=== PATIENT | female | born 1950 | race Caucasian/White ===

== ENCOUNTER 2017-07-29 09:16 | Emergency (ER) | payer OTHER ==
[~2017-07-29] VITALS: Ht 172.7 cm; Wt 63.5 kg
[~2017-07-29 09:16] MED LIST: ARPZ20T; BUDEPRION SR100 MG; DILT180C; HYDR1TAB86; LORA1TAB; PRAZ5CAP; TRAM-21; TRZ100T
[2017-07-29 09:41] LABS: BASOPHILS % (AUTO) 0 % (0-10); EOSINOPHILS % (AUTO) 0 % (0-10); HEMATOCRIT 53 % (35-52); HEMOGLOBIN 18.8 G/DL (11.5-16.0); LYMPHOCYTES # (AUTO) 0.7 X 10^3 (1.0-4.0); LYMPHOCYTES % (AUTO) 6 % (12-44); MEAN CORPUSCULAR HEMOGLOBIN 34 PG (25-34); MEAN CORPUSCULAR HGB CONC 36 G/DL (32-36); MEAN CORPUSCULAR VOLUME 96 FL (80-99); MEAN PLATELET VOLUME 10.4 FL (7.4-10.4); MONOCYTES # (AUTO) 0.8 X 10^3 (0.0-1.0); MONOCYTES % (AUTO) 7 % (0-12); NEUTROPHILS # (AUTO) 9.6 X 10^3 (1.8-7.8); NEUTROPHILS % (AUTO) 87 % (42-75); PLATELET COUNT 130 10^3/uL (130-400); RED CELL DISTRIBUTION WIDTH 17.3 % (10.0-14.5)
[2017-07-29 09:51] LABS: PROTHROMBIN TIME PATIENT 13.4 SEC (12.2-14.7)
[2017-07-29 10:00] LABS: ALANINE AMINOTRANSFERASE 11 U/L (0-55); ALKALINE PHOSPHATASE 83 U/L (40-136); BUN/CREATININE RATIO 7; CALCIUM 9.5 MG/DL (8.5-10.1); CARBON DIOXIDE 23 MMOL/L (21-32); CHLORIDE 102 MMOL/L (98-107); CREATININE SERUM 0.86 MG/DL (0.60-1.30); GFR ESTIMATED > 60; GLUCOSE 132 MG/DL (70-105); POTASSIUM 3.5 MMOL/L (3.6-5.0); SODIUM 140 MMOL/L (135-145); TOTAL PROTEIN 6.8 GM/DL (6.4-8.2)
[2017-07-29 10:06] LABS: BILIRUBIN,URINE NEGATIVE (NEGATIVE); CLARITY,URINE CLEAR; COLOR,URINE YELLOW; GLUCOSE, URINE (UA) NEGATIVE (NEGATIVE); KETONES,URINE NEGATIVE (NEGATIVE); LEUKOCYTE ESTERASE ,URINE NEGATIVE (NEGATIVE); NITRITE,URINE NEGATIVE (NEGATIVE); PH,URINE 7 (5-9); PROTEIN,URINE NEGATIVE (NEGATIVE); UROBILINOGEN,URINE NORMAL (NORMAL)
[2017-07-29 10:07] LABS: ANISOCYTOSIS MODERATE; BAND NEUTROPHILS 0 %; BASOPHILS % (MANUAL) 0 %; EOSINOPHILS % (MANUAL) 0 %; LYMPHOCYTES % (MANUAL) 9 %; MONOCYTES % (MANUAL) 5 %; NEUTROPHILS % (MANUAL) 86 %
[2017-07-29 10:15] LABS: BACTERIA,URINE NEGATIVE /HPF
[2017-07-29 10:16] LABS: CALCIUM OXALATE CRYSTALS,UR MODERATE /LPF
[2017-07-29 10:24] LABS: AMPHETAMINE SCREEN, URINE NEGATIVE (NEGATIVE); BARBITURATE SCREEN URINE NEGATIVE (NEGATIVE); BENZODIAZEPINES SCREEN URINE NEGATIVE (NEGATIVE); CANNABINOID SCREEN, URINE NEGATIVE (NEGATIVE); COCAINE SCREEN URINE NEGATIVE (NEGATIVE); METHADONE STAT NEGATIVE (NEGATIVE); METHAMPHETAMINE SCREEN URINE S NEGATIVE (NEGATIVE); OPIATE SCREEN URINE NEGATIVE (NEGATIVE); OXYCODONE STAT NEGATIVE (NEGATIVE); PROPOXYPHENE STAT NEGATIVE (NEGATIVE); TRICYCLIC ANTIDEPRESSANTS SCRE POSITIVE (NEGATIVE)
--- NOTE | 2017-07-29 12:20 | ED GI ---
General Chief Complaint: Rect Problems Stated Complaint: ANAL BLEED Nursing Triage Note: patient reports rectal bleeding 5 to 6 times starting last night Sepsis Screen: No Definite Risk Source of Information: Patient, EMS Exam Limitations: Other (dementia) History of Present Illness Date Seen by Provider: Jul 29, 2017 Time Seen by Provider: 09:18 Initial Comments This patient presents to the emergency room via EMS with complaints of multiple episodes of rectal bleeding. She reports bright red blood per rectum about 5 or 6 times over the last 12 hours or so. She lives alone and has dementia. She denies any notable pain. She denies any use of blood thinner medications. Patient is a bit disoriented consistent with her dementia. She is unable to correctly identify the place or year. She was ambulatory for EMS and met them on the porch. Allergies and Home Medications Allergies Coded Allergies: Morphine (Unverified Allergy, Intermediate, 05/18/09) Butorphanol (Unverified Allergy, Unknown, 05/18/09) Home Medications Aripiprazole 20 Mg Tab, (Reported) Bupropion Hcl 100 Mg Tablet.sa, (Reported) Diltiazem Hcl 180 Mg Cap.sr.24h, (Reported) Hydrocodone Bit/Acetaminophen 1 Each Tablet, (Reported) Lorazepam 1 Mg Tablet, (Reported) Prazosin Hcl 5 Mg Capsule, (Reported) Tramadol Hcl 50 Mg Tablet, (Reported) Trazodone Hcl 100 Mg Tab, (Reported) Review of Systems Constitutional: no symptoms reported EENTM: No Symptoms Reported Respiratory: No Symptoms Reported Cardiovascular: No Symptoms Reported Gastrointestinal: See HPI Genitourinary: No Symptoms Reported Musculoskeletal: no symptoms reported Skin: no symptoms reported Psychiatric/Neurological: See HPI Endocrine: No Symptoms Reported Hematologic/Lymphatic: See HPI Past Vbhaomt-Qfpnvg-Ixbrpb Hx Patient Social History Alcohol Use: Denies Use Recreational Drug Use: No Smoking Status: Current Everyday Smoker Recent Foreign Travel: No Contact w/Someone Who Travel: No Recent Infectious Disease Expo: No Surgeries History of Surgeries: Yes Surgeries: Appendectomy, Section, Hysterectomy Respiratory History of Respiratory Disorde: No Cardiovascular History of Cardiac Disorders: Yes Cardiac Disorders: Hypertension Neurological History of Neurological Disord: Yes Neurological Disorders: Dementia Reproductive System : No Genitourinary History of Genitourinary Disor: No Gastrointestinal History of Gastrointestinal Di: Yes Musculoskeletal History of Musculoskeletal Dis: No Endocrine History of Endocrine Disorders: No Cancer History of Cancer: No Psychosocial History of Psychiatric Problem: Yes Behavioral Health Disorders: Anxiety, Depression Physical Exam Vital Signs VS - Last 72 Hours, by Label 07/29/17 07/29/17 07/29/17 09:22 09:22 13:45 Temp 97.3 Pulse 89 84 Resp 12 18 B/P (MAP) 154/91 (112) 173/98 Pulse Ox 96 95 95 O2 Delivery Nasal Cannula Nasal Cannula O2 Flow Rate 3.00 3.00 Capillary Refill : Less Than 3 Seconds General Appearance: WD/WN, no apparent distress HEENT: normal ENT inspection, pharynx normal Neck: normal inspection Respiratory: lungs clear, normal breath sounds, no respiratory distress, no accessory muscle use Cardiovascular: regular rate, rhythm, no edema, no murmur Gastrointestinal: normal bowel sounds, non tender, soft Rectal: other (no active bleeding was noted with rectal exam. She did have a small mass that appeared like an external hemorrhoid posterior to the anus. This mass had a firm center. No bleeding was coming from the mass. Digital rectal exam revealed no abnormalities but there was exposure of dark blood upon removal of the finger.) Extremities: normal inspection, no pedal edema Neurologic/Psychiatric: sales recruiting coordinator II-XII nml as tested, no motor/sensory deficits, alert, other (Disoriented to place and year) Skin: normal color, warm/dry Progress/Results/Core Measures Results/Orders Lab Results Laboratory Tests Test 07/29/17 09:30 07/29/17 09:56 Range/Units White Blood Count 11.0 4.3-11.0 10^3/uL Red Blood Count 5.50 4.35-5.85 10^6/uL Hemoglobin 18.8 H 11.5-16.0 G/DL Hematocrit 53 H 35-52 % Mean Corpuscular Volume 96 80-99 FL Mean Corpuscular Hemoglobin 34 25-34 PG Mean Corpuscular Hemoglobin Concent 36 32-36 G/DL Red Cell Distribution Width 17.3 H 10.0-14.5 % Platelet Count 130 130-400 10^3/uL Mean Platelet Volume 10.4 7.4-10.4 FL Neutrophils (%) (Auto) 87 H 42-75 % Lymphocytes (%) (Auto) 6 L 12-44 % Monocytes (%) (Auto) 7 0-12 % Eosinophils (%) (Auto) 0 0-10 % Basophils (%) (Auto) 0 0-10 % Neutrophils # (Auto) 9.6 H 1.8-7.8 X 10^3 Lymphocytes # (Auto) 0.7 L 1.0-4.0 X 10^3 Monocytes # (Auto) 0.8 0.0-1.0 X 10^3 Eosinophils # (Auto) 0.0 0.0-0.3 10^3/uL Basophils # (Auto) 0.0 0.0-0.1 10^3/uL Neutrophils % (Manual) 86 % Lymphocytes % (Manual) 9 % Monocytes % (Manual) 5 % Eosinophils % (Manual) 0 % Basophils % (Manual) 0 % Band Neutrophils 0 % Anisocytosis MODERATE Prothrombin Time 13.4 12.2-14.7 SEC INR Comment 1.0 0.8-1.4 Activated Partial Thromboplast Time 28 24-35 SEC Sodium Level 140 135-145 MMOL/L Potassium Level 3.5 L 3.6-5.0 MMOL/L Chloride Level 102 98-107 MMOL/L Carbon Dioxide Level 23 21-32 MMOL/L Anion Gap 15 H 5-14 MMOL/L Blood Urea Nitrogen 6 L 7-18 MG/DL Creatinine 0.86 0.60-1.30 MG/DL Estimat Glomerular Filtration Rate > 60 BUN/Creatinine Ratio 7 Glucose Level 132 H 70-105 MG/DL Calcium Level 9.5 8.5-10.1 MG/DL Total Bilirubin 1.0 0.1-1.0 MG/DL Aspartate Amino Transf (AST/SGOT) 20 5-34 U/L Alanine Aminotransferase (ALT/SGPT) 11 0-55 U/L Alkaline Phosphatase 83 40-136 U/L Troponin I < 0.30 <0.30 NG/ML Total Protein 6.8 6.4-8.2 GM/DL Albumin 4.0 3.2-4.5 GM/DL Serum Alcohol < 10 <10 MG/DL Urine Color YELLOW Urine Clarity CLEAR Urine pH 7 5-9 Urine Specific Coker 1.005 L 1.016-1.022 Urine Protein NEGATIVE NEGATIVE Urine Glucose (UA) NEGATIVE NEGATIVE Urine Ketones NEGATIVE NEGATIVE Urine Nitrite NEGATIVE NEGATIVE Urine Bilirubin NEGATIVE NEGATIVE Urine Urobilinogen NORMAL NORMAL MG/DL Urine Leukocyte Esterase NEGATIVE NEGATIVE Urine RBC (Auto) NEGATIVE NEGATIVE Urine RBC NONE /HPF Urine WBC NONE /HPF Urine Squamous Epithelial Cells NONE /HPF Urine Crystals PRESENT H /LPF Urine Calcium Oxalate Crystals MODERATE H /LPF Urine Bacteria NEGATIVE /HPF Urine Casts NONE /LPF Urine Mucus NEGATIVE /LPF Urine Culture Indicated NO Urine Opiates Screen NEGATIVE NEGATIVE Urine Oxycodone Screen NEGATIVE NEGATIVE Urine Methadone Screen NEGATIVE NEGATIVE Urine Propoxyphene Screen NEGATIVE NEGATIVE Urine Barbiturates Screen NEGATIVE NEGATIVE Ur Tricyclic Antidepressants Screen POSITIVE H NEGATIVE Urine Phencyclidine Screen NEGATIVE NEGATIVE Urine Amphetamines Screen NEGATIVE NEGATIVE Urine Methamphetamines Screen NEGATIVE NEGATIVE Urine Benzodiazepines Screen NEGATIVE NEGATIVE Urine Cocaine Screen NEGATIVE NEGATIVE Urine Cannabinoids Screen NEGATIVE NEGATIVE My Orders Orders - MELISSA IGLESIAS MD Alcohol (07/29/17 09:29) Cbc With Automated Diff (07/29/17:29) Comprehensive Metabolic Panel (07/29/17:29) Drug Screen Stat (Urine) (07/29/17:29) Protime With Inr (07/29/17:29) Partial Thromboplastin Time (07/29/17:29) Ua Culture If Indicated (07/29/17:29) Saline Lock/Iv-Start (07/29/17:29) Ekg Tracing (07/29/17 09:29) O2 (07/29/17:29) Monitor-Rhythm Ecg Trace Only (07/29/17:29) Troponin I (07/29/17:29) Fecal Occult Bedside (07/29/17 09:29) Manual Differential (07/29/17 09:30) Vital Signs/I&O Vital Sign - Last 12Hours 07/29/17 07/29/17 07/29/17 09:22 09:22 13:45 Temp 97.3 Pulse 89 84 Resp 12 18 B/P (MAP) 154/91 (112) 173/98 Pulse Ox 96 95 95 O2 Delivery Nasal Cannula Nasal Cannula O2 Flow Rate 3.00 3.00 Blood Pressure Mean: 112 Progress Note : Progress Note Patient received a liter of IV fluids. Case was discussed with patient and daughter. Patient lives alone but her daughter will monitor her at home this evening and keep track of bleeding and overall status. I discussed the case with Dr. Piedra as well. He would like to try to manage the patient has an outpatient since she is not hypotensive, tachycardic, or having symptoms of anemia. His office will contact the family. EMS reported at one point patient had some sinus arrhythmia and thought heart rate jumped to 130s. EKG showed sinus rhythm with normal rate. No tachycardia or arrhythmia was witnessed in the ER. There were some borderline ST change in the inferior lateral leads which did not meet criteria for ischemia. She did not have chest pain. I discussed return precautions with patient and daughter. They will return if they have concerns for excessive bleeding or development of severe anemia signs or symptoms. Departure Impression Impression: Primary Impression: Rectal bleeding Additional Impressions: Mass of anus Hypovolemia Disposition: HOME, SELF-CARE Condition: Stable Departure-Patient Inst. Referrals: ARUN VEGA MD (PCP) Primary Care Physician MORENA MONTENEGRO (Family) Primary Care Physician GANGA PIEDRA MD Patient Instructions: Gastrointestinal Bleeding Add. Discharge Instructions: Encourage plenty of clear liquids. Avoid use of any anti-inflammatory medications such as aspirin, ibuprofen, naproxen, etc. Contact Dr. Piedra for follow-up arrangements. Return to the emergency room if symptoms worsen significantly. Worsening symptoms would include passing a significant amount of blood equivalent to 1 cup or more for symptoms of anemia such as lightheadedness, shortness of breath, fainting, etc. All discharge instructions reviewed with patient and/or family. Voiced understanding. Copy Copies To 1: GANGA PIEDRA MD Copies To 2: ARUN VEGA MD, JOSHUA T MD Jul 29, 2017 12:20
[2017-07-29 13:45] VITALS: BP 173/98
[2017-07-30] MEDS ORDERED: LISI10TA2 PO (10:06)
[2017-07-30] MEDS ORDERED: LOVA20TA2 PO (10:06)
[2017-07-30] MEDS ORDERED: QUET300T2 PO (10:06)
[2017-07-30] MEDS ORDERED: BUSP10TA95 PO (10:06)
[2017-07-30] MEDS ORDERED: QUET300T44 PO (13:20)
== END 2017-07-29 13:45 | disposition home or self-care (01) ==
LOC: EDUNIT# 09:16 → ER 09:18
DX: K62.5 Hemorrhage of anus and rectum (principal); K62.89 Other specified diseases of anus and rectum; E86.1 Hypovolemia; F17.200 Nicotine dependence, unspecified, uncomplicated; Z88.5 Allergy status to narcotic agent
CPT/HCPCS: 36415; 80053; 80306; 80320; 81000; 84484; 85007; 85027; 85610; 85730; 93005; 93041

== ENCOUNTER 2017-07-30 10:13 | Inpatient (IN) | payer MEDICARE, OTHER ==
[~2017-07-30] VITALS: Ht 177.8 cm; Wt 86.2 kg
[~2017-07-30 10:13] MED LIST changes: -QUET300T44 PO
[2017-07-30 11:40] VITALS: BP 144/82
[2017-07-30] MEDS ORDERED: METOCLOPRAMIDE INJ 10 MG/2 ML (REGLAN) IV SCH (12:25)
[2017-07-30] MEDS ORDERED: MAGNESIUM CITRATE 300 ML BTL PO NR ×2 (12:28→18:00)
[2017-07-30] MEDS ORDERED: CATHETER FLUSH 10 ML SYR IV PRN (12:30)
[2017-07-30] MEDS ORDERED: QUET300T44 PO (13:20)
[2017-07-30] MEDS: LACTATED RINGERS 1,000 ML IV SCH ×3 (13:23→23:30)
--- NOTE | 2017-07-30 14:13 | History & Physicial (CHS) ---
GABBY COON DO 07/30/17 1413: HPI Attending Physician Gabby Coon DO PCP Wyatt Nails MD Consult Date of Admission Jul 30, 2017 at 11:33 Home Medications Home Medications Reviewed patient Home Medication Reconciliation Form Allergies Coded Allergies: morphine (Unverified Allergy, Intermediate, 07/30/17) butorphanol (Unverified Allergy, Unknown, 07/30/17) PVP-Cfwult-Swmnlo Hx Patient Social History Alcohol Use: Past History Recreational Drug Use: Yes (alcohol) Type Used: Cigarettes Recent Foreign Travel: No Contact w/other who traveled: No Recent Hopitalizations: No Physical Abuse Screen: No Sexual Abuse: No Immunizations Up To Date Date of Influenza Vaccine: Mar 25, 2017 Physical Exam-([facility]) Physical Exam Vital Signs VS - Last 72 Hours, by Label 07/30/17 11:40 Temp 97.8 Pulse 97 Resp 20 B/P (MAP) 144/82 (102) Pulse Ox 92 O2 Delivery Room Air Capillary Refill : Clinical Quality Measures DVT/VTE Risk/Contraindication: Risk Factor Score Per Nursin RFS Level Per Nursing on Admit: 4+=Very High MERLYNARTI Danial CURRAN 07/31/17 1427: HPI History of Present Illness: This is a 66 yo female patient of Lakhwinder Carroll APRN at [facility] who was for rectal bleeding. Pt was initially seen in the ER yesterday when bleeding started rectally. She was stable with normal hemoglobin and was DC to the care of her daughter with f/u w/ Dr. Scherer. At home with her daughter, pt had 19 more bloody stools and c/o of dizziness and stomach pain. Dr. Scherer was contacted and he recommended admission to us with plans for colonoscopy and EGD. Pt has demential and is poor historian but daughter is present and states she has never had hx of GI bleed. No know use of NSAID, ASA, or other medications putting her at risk for bleeding. Denies vomiting. Pt has no complaints at this time. Source: family Exam Limitations: other (dementia) Date seen by provider: Jul 31, 2017 Time Seen by Provider: 10:45 Home Medications Allergies Coded Allergies: morphine (Unverified Allergy, Intermediate, 07/30/17) butorphanol (Unverified Allergy, Unknown, 07/30/17) RSW-Ifxjri-Zlznts Hx Past Medical History Dementia Depression/Anxiety possible COPD hypertension hyperlipidemia PSH: c/s x2 Appendectomy Hysterectomy ECT for depression x2 Review of Systems ([facility]) Constitutional: other (unable to obtain ROS; see HPI) Reviewed Test Results Reviewed Test Results Lab Laboratory Tests 07/31/17 05:19: White Blood Count 10.5, Red Blood Count 4.71, Hemoglobin 15.7, Hematocrit 46, Mean Corpuscular Volume 98, Mean Corpuscular Hemoglobin 33, Mean Corpuscular Hemoglobin Concent 34, Red Cell Distribution Width 17.1H, Platelet Count 129L, Mean Platelet Volume 10.6H, Neutrophils (%) (Auto) 72, Lymphocytes (%) (Auto) 18 , Monocytes (%) (Auto) 10, Eosinophils (%) (Auto) 0, Basophils (%) (Auto) 0, Neutrophils # (Auto) 7.5, Lymphocytes # (Auto) 1.9, Monocytes # (Auto) 1.0, Eosinophils # (Auto) 0.0, Basophils # (Auto) 0.0, Sodium Level 143, Potassium Level 3.4L, Chloride Level 106, Carbon Dioxide Level 27, Anion Gap 10, Blood Urea Nitrogen 3L, Creatinine 0.60, Estimat Glomerular Filtration Rate > 60, BUN/ Creatinine Ratio 5, Glucose Level 111H, Calcium Level 8.3L, Total Bilirubin 0.9 , Aspartate Amino Transf (AST/SGOT) 12, Alanine Aminotransferase (ALT/SGPT) 6, Alkaline Phosphatase 56, Total Protein 5.0L, Albumin 3.0L Physical Exam-([facility]) Physical Exam Vital Signs VS - Last 72 Hours, by Label 07/30/17 07/30/17 07/30/17 07/31/17 11:40 16:00 20:26 00:00 Temp 97.8 98.8 98.9 99.3 Pulse 97 89 104 90 Resp 20 14 20 18 B/P (MAP) 144/82 (102) 146/94 (111) 153/80 (104) 152/84 (106) Pulse Ox 92 94 95 94 O2 Delivery Room Air Room Air Room Air Nasal Cannula O2 Flow Rate 2.00 07/31/17 07/31/17 07/31/17 04:03 08:00 11:35 Temp 99.5 97.2 98.5 Pulse 97 88 85 Resp 16 16 16 B/P (MAP) 124/78 (93) 138/81 (100) 168/90 (116) Pulse Ox 96 95 91 O2 Delivery Nasal Cannula Nasal Cannula Room Air O2 Flow Rate 2.00 1.00 General Appearance: no apparent distress HEENT: PERRL/EOMI Respiratory: lungs clear, normal breath sounds Cardiovascular: regular rate, rhythm Gastrointestinal: non tender, soft Extremities: normal range of motion, no pedal edema Skin: normal color, warm/dry Assessment/Plan Assessment/Plan Plan Restarted home meds. SCDs for DVT ppx; pharm tx contraindicated secondary to rectal bleeding Pt is DNR status, DPOA is daughter (1) Rectal bleeding Status: Acute Assessment & Plan: 07/31 - Pt stable w/ stable Hb - Dr. Scherer consulted with plans for colonoscopy and EGD tomorrow (2) Hypokalemia Status: Acute Assessment & Plan: 07/31 - K 3.4 - replace (3) Dementia Status: Chronic Assessment & Plan: 07/31 - pt at baseline; lives alone. Will consult social media content specialist for evaluation for placement. Qualifiers: Qualified Codes: F03.90 - Unspecified dementia without behavioral disturbance GABBY COON DO Jul 30, 2017 14:13 ARTI ZULETA DO Jul 31, 2017 14:27
[2017-07-30] MEDS: CATHETER FLUSH 10 ML SYR IV SCH ×2 (14:45→19:42)
[2017-07-30 16:00] VITALS: BP 146/94
--- NOTE | 2017-07-30 16:05 | Consultation ---
History of Present Illness History of Present Illness Patient Consulted On(amber/time) 07/30/17 16:02 Date Seen by Provider: Jul 30, 2017 Time Seen by Provider: 15:45 Reason for Visit: Rectal bleeding, melena and nausea History of Present Illness 2-3 days history of rectal bleeding, melena and nausea, resulting in an ER visit. Hemodynamically stable with a reasonable hemoglobin. Due to nausea and inability to tolerate bowel preparation, she has been admitted for intravenous fluids along with symptomatic management. Upper endoscopy and colonoscopy are scheduled for , Allergies and Home Medications Allergies Coded Allergies: morphine (Unverified Allergy, Intermediate, 07/30/17) butorphanol (Unverified Allergy, Unknown, 07/30/17) Home Medications Buspirone HCl 10 Mg Tablet, 10 MG PO BID, (Reported) Lisinopril 10 Mg Tablet, 10 MG PO DAILY, (Reported) Lovastatin 20 Mg Tablet, 20 MG PO HS, (Reported) Quetiapine Fumarate 300 Mg Tablet, 300 MG PO HS, (Reported) Past Wucgkmn-Mhmezq-Nfepcz Hx Patient Social History Alcohol Use: Past History Recreational Drug Use: Yes (alcohol) Type Used: Cigarettes Recent Foreign Travel: No Contact w/Someone Who Travel: No Recent Hopitalizations: No Immunizations Up To Date Date of Influenza Vaccine: Mar 25, 2017 Seasonal Allergies Seasonal Allergies: No Surgeries History of Surgeries: Yes Surgeries: Appendectomy, Section, Hysterectomy Respiratory History of Respiratory Disorde: No Cardiovascular History of Cardiac Disorders: Yes Cardiac Disorders: High Cholesterol, Hypertension Neurological History of Neurological Disord: Yes (ELECTRIC SHOCK TREATMENT ( LAST ONE 14 YRS. AGO)) Neurological Disorders: Dementia Reproductive System Hx Reproductive Disorders: No Sexually Transmitted Disease: No HIV/AIDS: No Genitourinary History of Genitourinary Disor: No Gastrointestinal History of Gastrointestinal Di: Yes ( BOWEL ISSUES, LOSS APPETITE) Gastrointestinal Disorders: Gastroesophageal Reflux Musculoskeletal History of Musculoskeletal Dis: No Endocrine History of Endocrine Disorders: No HEENT Loss of Vision: Bilateral Hearing Impairment: Denies Cancer History of Cancer: No Psychosocial History of Psychiatric Problem: Yes Behavioral Health Disorders: Anxiety, Depression Integumentary History of Skin or Integumenta: No Blood Transfusions History of Blood Disorders: No Adverse Reaction to a Blood Tr: No (N/A) Review of Systems-General Constitutional: weakness EENTM: no symptoms reported Respiratory: no symptoms reported Gastrointestinal: see HPI Genitourinary: no symptoms reported Musculoskeletal: no symptoms reported Skin: no symptoms reported Psychiatric/Neurological: Emotional Problems Physical Exam-General Problems Physical Exam Vital Signs Vital Signs - First Documented 07/30/17 11:40 Temp 97.8 Pulse 97 Resp 20 B/P (MAP) 144/82 (102) Pulse Ox 92 O2 Delivery Room Air Capillary Refill : General Appearance: no apparent distress Neck: normal inspection Respiratory: lungs clear Cardiovascular: regular rate, rhythm Gastrointestinal: soft Rectal: deferred Extremities: normal inspection Neurologic/Psychiatric: alert Skin: warm/dry Assessment/Plan Assessment/Plan Admission Diagnosis/Plan lady with a history of melena, fresh rectal bleeding. Bowel preparation in progress. 4 upper endoscopy and colonoscopy in 48 hours. Clinical Quality Measures DVT/VTE Risk/Contraindication: Risk Factor Score Per Nursin RFS Level Per Nursing on Admit: 4+=Very High GANGA PIEDRA MD Jul 30, 2017 4:05 pm
[2017-07-30] MEDS ORDERED: METOCLOPRAMIDE INJ 10 MG/2 ML (REGLAN) IV PRN (16:30)
[2017-07-30] MEDS: busPIRone 10 MG (BUSPAR) TAB PO SCH (20:24)
[2017-07-30] MEDS: QUEtiapine 100 MG (SEROquel) TAB IMMEDIATE RELEASE PO SCH (20:25)
[2017-07-30] MEDS: SIMvastatin 10 MG (ZOCOR) TAB PO SCH (20:25)
[2017-07-30 20:26] VITALS: BP 153/80
[2017-07-30] MEDS ORDERED: NON-FORMULARY MEDICATION 1 EA EA (Lovastatin 20 MG) PO SCH (21:00)
[2017-07-30] MEDS ORDERED: NON-FORMULARY MEDICATION 1 EA EA (Quetiapine Fumarate 300 MG) PO SCH (21:00)
[2017-07-31] VITALS (7 sets, daily range): BP systolic 124–181; BP diastolic 61–96
[2017-07-31] MEDS: CATHETER FLUSH 10 ML SYR IV SCH ×3 (04:24→20:30)
[2017-07-31 05:43] LABS: BASOPHILS % (AUTO) 0 % (0-10); EOSINOPHILS % (AUTO) 0 % (0-10); HEMATOCRIT 46 % (35-52); HEMOGLOBIN 15.7 G/DL (11.5-16.0); LYMPHOCYTES # (AUTO) 1.9 X 10^3 (1.0-4.0); LYMPHOCYTES % (AUTO) 18 % (12-44); MEAN CORPUSCULAR HEMOGLOBIN 33 PG (25-34); MEAN CORPUSCULAR HGB CONC 34 G/DL (32-36); MEAN CORPUSCULAR VOLUME 98 FL (80-99); MEAN PLATELET VOLUME 10.6 FL (7.4-10.4); MONOCYTES % (AUTO) 10 % (0-12); NEUTROPHILS # (AUTO) 7.5 X 10^3 (1.8-7.8); NEUTROPHILS % (AUTO) 72 % (42-75); PLATELET COUNT 129 10^3/uL (130-400); RED BLOOD COUNT 4.71 10^6/uL (4.35-5.85); RED CELL DISTRIBUTION WIDTH 17.1 % (10.0-14.5); WHITE BLOOD COUNT 10.5 10^3/uL (4.3-11.0)
[2017-07-31] MEDS ORDERED: MAGNESIUM CITRATE 300 ML BTL PO SCH (06:00)
[2017-07-31 06:05] LABS: ALANINE AMINOTRANSFERASE 6 U/L (0-55); ALKALINE PHOSPHATASE 56 U/L (40-136); BILIRUBIN,TOTAL 0.9 MG/DL (0.1-1.0); BUN/CREATININE RATIO 5; CALCIUM 8.3 MG/DL (8.5-10.1); CARBON DIOXIDE 27 MMOL/L (21-32); CHLORIDE 106 MMOL/L (98-107); GFR ESTIMATED > 60; GLUCOSE 111 MG/DL (70-105); POTASSIUM 3.4 MMOL/L (3.6-5.0); SODIUM 143 MMOL/L (135-145)
[2017-07-31] MEDS ORDERED: MAGNESIUM CITRATE 300 ML BTL PO NR ×2 (07:00→14:00)
[2017-07-31] MEDS: LACTATED RINGERS 1,000 ML IV SCH ×2 (08:30→19:00)
[2017-07-31] MEDS: busPIRone 10 MG (BUSPAR) TAB PO SCH ×2 (08:30→20:30)
[2017-07-31] MEDS ORDERED: lisINopril 10 MG (PRINIVIL) TABLET PO SCH (09:00)
[2017-07-31] MEDS: POTASSIUM CL 10MEQ/50ML IVPB 50 ML IV SCH ×2 (11:52→14:19)
--- NOTE | 2017-07-31 12:56 | Progress Note (SOAP) ---
Subjective Date Seen by Provider: Jul 31, 2017 Time Seen by Provider: 11:40 Subjective/Events-last exam Bowel prep in progress. No nausea. Hemoglobin stable. Hypokalemia, will be replaced. Review of Systems General: No Chills, No Night Sweats, No Fatigue, No Malaise HEENT: No Head Aches, No Eye Pain, No Ear Pain, No Dysphasia, No Sinus Congestion, No Post Nasal Drip, No Sore Throat Pulmonary: No Dyspnea, No Cough, No Pleuritic Chest Pain Cardiovascular: No: Chest Pain, Palpitations, Orthopnea, Paroxysmal Noc. Dyspnea, Edema, Lt Headedness Gastrointestinal: No: Nausea, Vomiting, Abdominal Pain, Diarrhea, Constipation , Melena, Hematochezia Genitourinary: No Dysuria, No Frequency, No Incontinence, No Hematuria, No Retention Musculoskeletal: No: other, neck pain, shoulder pain, arm pain, back pain, hand pain, leg pain, foot pain Neurological: No: Weakness, Numbness, Incoordination, Change in speech, Confusion, Seizures, Other Objective Exam Vital Signs Date Time Temp Pulse Resp B/P (MAP) Pulse Ox O2 Delivery O2 Flow Rate FiO2 07/31/17 11:35 98.5 85 16 168/90 (116) 91 Room Air 07/31/17 08:00 97.2 88 16 138/81 (100) 95 Nasal Cannula 1.00 07/31/17 04:03 99.5 97 16 124/78 (93) 96 Nasal Cannula 2.00 07/31/17 00:00 99.3 90 18 152/84 (106) 94 Nasal Cannula 2.00 07/30/17 20:26 98.9 104 20 153/80 (104) 95 Room Air 07/30/17 16:00 98.8 89 14 146/94 (111) 94 Room Air I & O 07/31/17 07:00 Intake Total 1010 ml Output Total 200 ml Balance 810 ml Capillary Refill : General Appearance: No Apparent Distress HEENT: Normal ENT Inspection Neck: Normal Inspection Respiratory: Lungs Clear Cardiovascular: Regular Rate, Rhythm Gastrointestinal: non tender, soft Neurologic/Psychiatric: Alert Skin: Warm/Dry Results Lab Laboratory Tests 07/31/17 05:19: White Blood Count 10.5, Red Blood Count 4.71, Hemoglobin 15.7, Hematocrit 46, Mean Corpuscular Volume 98, Mean Corpuscular Hemoglobin 33, Mean Corpuscular Hemoglobin Concent 34, Red Cell Distribution Width 17.1H, Platelet Count 129L, Mean Platelet Volume 10.6H, Neutrophils (%) (Auto) 72, Lymphocytes (%) (Auto) 18 , Monocytes (%) (Auto) 10, Eosinophils (%) (Auto) 0, Basophils (%) (Auto) 0, Neutrophils # (Auto) 7.5, Lymphocytes # (Auto) 1.9, Monocytes # (Auto) 1.0, Eosinophils # (Auto) 0.0, Basophils # (Auto) 0.0, Sodium Level 143, Potassium Level 3.4L, Chloride Level 106, Carbon Dioxide Level 27, Anion Gap 10, Blood Urea Nitrogen 3L, Creatinine 0.60, Estimat Glomerular Filtration Rate > 60, BUN/ Creatinine Ratio 5, Glucose Level 111H, Calcium Level 8.3L, Total Bilirubin 0.9 , Aspartate Amino Transf (AST/SGOT) 12, Alanine Aminotransferase (ALT/SGPT) 6, Alkaline Phosphatase 56, Total Protein 5.0L, Albumin 3.0L Assessment/Plan Assessment/Plan Assess & Plan/Chief Complaint lady with a history of melena, fresh rectal bleeding. Bowel preparation in progress. 4 upper endoscopy and colonoscopy in 48 hours. lady with a history of melena and rectal bleeding. No further bleeding noticed. Hemoglobin and vital signs stable. For upper and lower endoscopy tomorrow Final Diagnosis rectal bleeding and melena Clinical Quality Measures DVT/VTE Risk/Contraindication: Risk Factor Score Per Nursin RFS Level Per Nursing on Admit: 4+=Very High Contraindications-Pharm: Other *list below* Other: SCDs ordered; Pharm VTE PPx contraindicated secondary to rectal bleeding GANGA PIEDRA MD Jul 31, 2017 12:55 pm
[2017-07-31] MEDS ORDERED: lisINopril 40 MG (PRINIVIL) TABLET PO ONE (16:00)
[2017-07-31] MEDS ORDERED: lisINopril 10 MG (PRINIVIL) TABLET PO NR (16:00)
--- NOTE | 2017-07-31 16:00 | Progress Note (SOAP) ---
Subjective Subjective/Events-last exam No new issues. Review of Systems Date Seen by Provider: Jul 31, 2017 Time Seen by Provider: 10:45 Objective Exam Last Set of Vital Signs Vital Signs Date Time Temp Pulse Resp B/P (MAP) Pulse Ox O2 Delivery O2 Flow Rate FiO2 07/31/17 11:35 98.5 85 16 168/90 (116) 91 Room Air 07/31/17 08:00 1.00 Capillary Refill : I&O Intake and Output 07/31/17 00:00 Intake Total 910 ml Balance 910 ml Intake Oral 910 ml # Voids 7 # Bowel Movements 7 Daily Weight Change Unsure General: Alert, Oriented X3, Cooperative Abdomen: Soft Results/Procedures Lab Laboratory Tests 07/31/17 05:19: White Blood Count 10.5, Red Blood Count 4.71, Hemoglobin 15.7, Hematocrit 46, Mean Corpuscular Volume 98, Mean Corpuscular Hemoglobin 33, Mean Corpuscular Hemoglobin Concent 34, Red Cell Distribution Width 17.1H, Platelet Count 129L, Mean Platelet Volume 10.6H, Neutrophils (%) (Auto) 72, Lymphocytes (%) (Auto) 18 , Monocytes (%) (Auto) 10, Eosinophils (%) (Auto) 0, Basophils (%) (Auto) 0, Neutrophils # (Auto) 7.5, Lymphocytes # (Auto) 1.9, Monocytes # (Auto) 1.0, Eosinophils # (Auto) 0.0, Basophils # (Auto) 0.0, Sodium Level 143, Potassium Level 3.4L, Chloride Level 106, Carbon Dioxide Level 27, Anion Gap 10, Blood Urea Nitrogen 3L, Creatinine 0.60, Estimat Glomerular Filtration Rate > 60, BUN/ Creatinine Ratio 5, Glucose Level 111H, Calcium Level 8.3L, Total Bilirubin 0.9 , Aspartate Amino Transf (AST/SGOT) 12, Alanine Aminotransferase (ALT/SGPT) 6, Alkaline Phosphatase 56, Total Protein 5.0L, Albumin 3.0L Assessment/Plan Assessment/Plan Plan Restarted home meds. SCDs for DVT ppx; pharm tx contraindicated secondary to rectal bleeding Pt is DNR status, DPOA is daughter (1) Rectal bleeding Status: Acute Assessment & Plan: 07/31 - Pt stable w/ stable Hb - Dr. Scherer consulted with plans for colonoscopy and EGD tomorrow (2) Hypokalemia Status: Acute Assessment & Plan: 07/31 - K 3.4 - replace (3) Dementia Status: Chronic Assessment & Plan: 07/31 - pt at baseline; lives alone. Will consult social sciences instructor for evaluation for placement. Qualifiers: Qualified Codes: F03.90 - Unspecified dementia without behavioral disturbance Clinical Quality Measures DVT/VTE Risk/Contraindication: Risk Factor Score Per Nursin RFS Level Per Nursing on Admit: 4+=Very High Contraindications-Pharm: Other *list below* Other: SCDs ordered; Pharm VTE PPx contraindicated secondary to rectal bleeding ARTI ZULETA DO Jul 31, 2017 16:00
[2017-07-31] MEDS: QUEtiapine 100 MG (SEROquel) TAB IMMEDIATE RELEASE PO SCH (20:30)
[2017-07-31] MEDS: SIMvastatin 10 MG (ZOCOR) TAB PO SCH (20:30)
[2017-08-01] MEDS: LACTATED RINGERS 1,000 ML IV SCH ×3 (04:42→18:11)
[2017-08-01 04:44] VITALS: BP 120/65
[2017-08-01] MEDS: CATHETER FLUSH 10 ML SYR IV SCH ×3 (05:57→21:07)
[2017-08-01 06:11] LABS: HEMOGLOBIN 14.9 G/DL (11.5-16.0); MEAN PLATELET VOLUME 10.5 FL (7.4-10.4); RED BLOOD COUNT 4.47 10^6/uL (4.35-5.85); WHITE BLOOD COUNT 7.5 10^3/uL (4.3-11.0)
[2017-08-01 06:48] LABS: BUN/CREATININE RATIO 7; CALCIUM 8.2 MG/DL (8.5-10.1); CARBON DIOXIDE 27 MMOL/L (21-32); CHLORIDE 106 MMOL/L (98-107); CREATININE SERUM 0.57 MG/DL (0.60-1.30); GFR ESTIMATED > 60; GLUCOSE 99 MG/DL (70-105); POTASSIUM 3.5 MMOL/L (3.6-5.0); SODIUM 142 MMOL/L (135-145)
[2017-08-01 08:00] VITALS: BP 130/67
[2017-08-01] MEDS: POTASSIUM CL 10MEQ/50ML IVPB 50 ML IV SCH ×3 (08:38→10:43)
[2017-08-01] MEDS: busPIRone 10 MG (BUSPAR) TAB PO SCH ×2 (08:38→21:07)
[2017-08-01] MEDS: lisINopril 20 MG (PRINIVIL) TABLET PO SCH (08:38)
[2017-08-01] MEDS ORDERED: lisINopril 40 MG (PRINIVIL) TABLET PO SCH (09:00)
[2017-08-01] MEDS ORDERED: lisINopril 10 MG (PRINIVIL) TABLET PO SCH (09:00)
[2017-08-01 12:00] VITALS: BP 135/62
[2017-08-01] MEDS ORDERED: fentaNYL INJECTION 100 MCG/2 ML AMP ONE ×2 (12:00→12:01)
[2017-08-01] MEDS ORDERED: HURRICAINE EXT TUBE (BENZOCAINE) ONE (12:01)
[2017-08-01] MEDS ORDERED: MIDAZOLAM 2 MG/2 ML (VERSED) VIAL ONE ×3 (12:01)
[2017-08-01] MEDS ORDERED: NS IV 500 ML 500 ML ONE (12:01)
[2017-08-01] MEDS ORDERED: NS IV 500 ML 500 ML IV PRN (12:05)
[2017-08-01] MEDS ORDERED: HURRICAINE EXT TUBE (BENZOCAINE) XX PRN (12:15)
--- NOTE | 2017-08-01 12:50 | Conscious Sedation/ASA ---
Conscious Sedation Pre-Proced Time Reviewed: 12:50 ASA Class: 3 Airway Mallampati Classification: (navajo appropriate class) I. II. III, IV Lungs Heart ASA score ASA 1: a normal healthy patient ASA 2: a patient with a mild systemic disease (mid diabetes, controlled hypertension, obesity ASA 3: a patient with a severe systemic disease that limits activity (angina , COPD, prior Myocardial infarction) ASA 4: a patient with an incapacitating disease that is a constant threat to life (CHF, renal failure) ASA 5: a moribund patient not expected to survive 24 hrs. (ruptured aneurysm) ASA 6: a declared brain patient whose organs are being harvested. For emergent operations, add the letter E after the classification Grade 1 Sedation Plan: Discussed options with patient/fam Note The patient is an appropriate candidate to undergo the planned procedure, sedation, and anesthesia. The patient immediately re-assessed prior to indication. GANGA PIEDRA MD Aug 01, 2017 12:50 pm
[2017-08-01] MEDS: fentaNYL INJECTION 100 MCG/2 ML AMP IVP PRN ×3 (12:53→13:10)
[2017-08-01] MEDS: MIDAZOLAM 2 MG/2 ML (VERSED) VIAL IVP PRN ×3 (12:55→13:07)
--- NOTE | 2017-08-01 13:31 | Endo Procedure Record ---
Endo Procedure Report Date of Procedure Last Colonoscopy: No Aug 01, 2017 Surgeon (s) GANGA PIEDRA MD Post Procedure/Op Diagnosis EGD: Antral erosions Colonoscopy: 10 mm sessile polyp at the proximal rectum Changes of ischemic colitis extending from 25-50 cm Procedure Performed Upper endoscopy Colonoscopy to cecum Snare polypectomy Biopsy of ischemic colitis area Description of Procedure Anesthesia Type: Conscious Sedation Specimen(s) collected/removed rectal polyp. Mucosal biopsies from descending colon for ischemic colitis Description of the Procedure Indication for procedures: This lady has been admitted with a combination of melena and fresh rectal bleeding, along with abdominal pain. She was offered upper endoscopy with concomitant colonoscopy for diagnostic reasons. Informed consent was obtained after reviewing the procedures in detail Description of the procedures: EGD: She was placed in left lateral rectus position and her vital signs were monitored. Conscious sedation was achieved using Versed and fentanyl. The flexible gastroscope was then introduced down the esophagus, past the stomach, into the proximal duodenum. Findings: Esophagus: Normal. Stomach: Multiple, shallow erosions at the antrum Duodenum: Normal. She tolerated the procedure well and was turned around in preparation for colonoscopy. Impression: Melena. Distal gastric erosions. Colonoscopy/polypectomy/biopsy: Digital rectal examination was unremarkable. The colonoscope was then introduced into the rectum and advanced all the way up to the cecum The quality of bowel preparation was excellent. The scope was then withdrawn slowly and the mucosa examined in a systematic fashion. Findings: 1. 10 mm sessile polyp at the proximal rectum, there was snared and retrieved 2. Inflamed mucosa with serpiginous ulcers, having the appearance of ischemic colitis, extending from 25-50 cm, along the descending colon. Photodocumentation and biopsies were obtained She tolerated the procedures well and was taken back to the nursing area in a stable condition. Impression: Rectal bleeding. 10 mm rectal polyp excised. Changes of ischemic colitis. Will treat conservatively Copies To: MALGORZATA COON DO Copies To: ARUN VEGA MD, XAVIER M MD Aug 01, 2017 1:30 pm
[2017-08-01] MEDS: metroNIDAZOLE 500MG/100ML IVPB 100 ML IV SCH ×2 (14:30→21:07)
[2017-08-01 16:05] VITALS: BP 156/82
--- NOTE | 2017-08-01 16:27 | Progress Note (SOAP) ---
Subjective Subjective/Events-last exam No new complaints; to have scopes today. Review of Systems Date Seen by Provider: Aug 01, 2017 Time Seen by Provider: 10:30 Objective Exam Last Set of Vital Signs Vital Signs Date Time Temp Pulse Resp B/P (MAP) Pulse Ox O2 Delivery O2 Flow Rate FiO2 08/01/17 16:05 97.2 80 18 156/82 (106) 96 Nasal Cannula 2.00 Capillary Refill : I&O Intake and Output 08/01/17 00:00 Intake Total 3370 ml Output Total 600 ml Balance 2770 ml Intake Oral 1370 ml IV Total 2000 ml Output Urine Total 600 ml # Voids 11 # Bowel Movements 14 General: Alert, Oriented X3, Cooperative Lungs: Clear to Auscultation Abdomen: Normal Bowel Sounds Results/Procedures Lab Laboratory Tests 08/01/17 05:39: White Blood Count 7.5, Red Blood Count 4.47, Hemoglobin 14.9, Hematocrit 44, Mean Corpuscular Volume 99, Mean Corpuscular Hemoglobin 33, Mean Corpuscular Hemoglobin Concent 34, Red Cell Distribution Width 17.0H, Platelet Count 116L, Mean Platelet Volume 10.5H, Sodium Level 142, Potassium Level 3.5L, Chloride Level 106, Carbon Dioxide Level 27, Anion Gap 9, Blood Urea Nitrogen 4L, Creatinine 0.57L, Estimat Glomerular Filtration Rate > 60, BUN/Creatinine Ratio 7, Glucose Level 99, Calcium Level 8.2L Assessment/Plan Assessment/Plan Plan Restarted home meds. SCDs for DVT ppx; pharm tx contraindicated secondary to rectal bleeding Pt is DNR status, DPOA is daughter (1) Rectal bleeding Status: Acute Assessment & Plan: 07/31 - Pt stable w/ stable Hb - Dr. Scherer consulted with plans for colonoscopy and EGD tomorrow 08/01 - scopes planned for today; Hb stable at 14.9 (2) Hypokalemia Status: Acute Assessment & Plan: 07/31 - K 3.4 - replace 08/01 - K 3.5 - replace (3) Dementia Status: Chronic Assessment & Plan: 07/31 - pt at baseline; lives alone. Will consult social research assistant for evaluation for placement. Qualifiers: Qualified Codes: F03.90 - Unspecified dementia without behavioral disturbance Clinical Quality Measures DVT/VTE Risk/Contraindication: Risk Factor Score Per Nursin RFS Level Per Nursing on Admit: 4+=Very High Contraindications-Pharm: Other *list below* Other: SCDs ordered; Pharm VTE PPx contraindicated secondary to rectal bleeding ARTI ZULETA DO Aug 01, 2017 16:27
[2017-08-01 20:00] VITALS: BP 169/77
[2017-08-01] MEDS: QUEtiapine 100 MG (SEROquel) TAB IMMEDIATE RELEASE PO SCH (21:07)
[2017-08-01] MEDS: SIMvastatin 10 MG (ZOCOR) TAB PO SCH (21:07)
[2017-08-01 23:13] VITALS: BP 128/68
[2017-08-02 03:07] VITALS: BP 109/62
[2017-08-02] MEDS: metroNIDAZOLE 500MG/100ML IVPB 100 ML IV SCH (05:10)
[2017-08-02] MEDS: LACTATED RINGERS 1,000 ML IV SCH (05:10)
[2017-08-02] MEDS: CATHETER FLUSH 10 ML SYR IV SCH ×2 (05:10→13:03)
[2017-08-02 06:10] LABS: BASOPHILS % (AUTO) 0 % (0-10); EOSINOPHILS # (AUTO) 0.2 10^3/uL (0.0-0.3); EOSINOPHILS % (AUTO) 3 % (0-10); HEMATOCRIT 42 % (35-52); HEMOGLOBIN 13.9 G/DL (11.5-16.0); LYMPHOCYTES # (AUTO) 1.6 X 10^3 (1.0-4.0); LYMPHOCYTES % (AUTO) 25 % (12-44); MEAN CORPUSCULAR HEMOGLOBIN 33 PG (25-34); MEAN CORPUSCULAR HGB CONC 33 G/DL (32-36); MEAN CORPUSCULAR VOLUME 99 FL (80-99); MEAN PLATELET VOLUME 10.6 FL (7.4-10.4); MONOCYTES # (AUTO) 0.7 X 10^3 (0.0-1.0); MONOCYTES % (AUTO) 10 % (0-12); NEUTROPHILS % (AUTO) 61 % (42-75); PLATELET COUNT 122 10^3/uL (130-400); RED BLOOD COUNT 4.24 10^6/uL (4.35-5.85); RED CELL DISTRIBUTION WIDTH 16.6 % (10.0-14.5); WHITE BLOOD COUNT 6.5 10^3/uL (4.3-11.0)
[2017-08-02 06:26] LABS: BUN/CREATININE RATIO 6; CALCIUM 8.3 MG/DL (8.5-10.1); CARBON DIOXIDE 25 MMOL/L (21-32); CHLORIDE 106 MMOL/L (98-107); CREATININE SERUM 0.62 MG/DL (0.60-1.30); GFR ESTIMATED > 60; GLUCOSE 95 MG/DL (70-105); POTASSIUM 3.5 MMOL/L (3.6-5.0); SODIUM 140 MMOL/L (135-145)
[2017-08-02] MEDS ORDERED: KCL 20 MEQ TAB (K-DUR) PO NR (07:45)
[2017-08-02 08:00] VITALS: BP 129/70
[2017-08-02] MEDS: busPIRone 10 MG (BUSPAR) TAB PO SCH (08:26)
[2017-08-02] MEDS: lisINopril 20 MG (PRINIVIL) TABLET PO SCH (08:26)
[2017-08-02] MEDS ORDERED: KCL 10 MEQ TAB (MICRO K) PO NR (08:48)
[2017-08-02 12:00] VITALS: BP 153/86
--- NOTE | 2017-08-02 12:21 | Progress Note (SOAP) ---
Subjective Date Seen by Provider: Aug 02, 2017 Time Seen by Provider: 10:00 Subjective/Events-last exam no more rectal bleeding. Tolerating diet. Hemoglobin stable. Hypokalemia, being replaced Review of Systems General: No Chills, No Night Sweats, No Fatigue, No Malaise HEENT: No Head Aches, No Eye Pain, No Ear Pain, No Dysphasia, No Sinus Congestion, No Post Nasal Drip, No Sore Throat Pulmonary: No Dyspnea, No Cough, No Pleuritic Chest Pain Gastrointestinal: No: Nausea, Vomiting, Abdominal Pain, Diarrhea, Constipation , Melena, Hematochezia Genitourinary: No Dysuria, No Frequency, No Incontinence, No Hematuria, No Retention Musculoskeletal: No: other, neck pain, shoulder pain, arm pain, back pain, hand pain, leg pain, foot pain Neurological: No: Weakness, Numbness, Incoordination, Change in speech, Confusion, Seizures, Other Objective Exam Vital Signs Date Time Temp Pulse Resp B/P (MAP) Pulse Ox O2 Delivery O2 Flow Rate FiO2 08/02/17 08:00 98.0 78 16 129/70 (89) 92 Nasal Cannula 2.00 08/02/17 03:07 98.1 76 16 109/62 (78) 93 Nasal Cannula 2.00 08/01/17 23:13 100.2 83 20 128/68 (88) 94 Nasal Cannula 2.00 08/01/17 20:00 99.6 85 16 169/77 (107) 96 Nasal Cannula 2.00 08/01/17 16:05 97.2 80 18 156/82 (106) 96 Nasal Cannula 2.00 I & O 08/02/17 07:00 Intake Total 1150 ml Output Total 550 ml Balance 600 ml Capillary Refill : General Appearance: No Apparent Distress Neck: Normal Inspection Respiratory: Lungs Clear Cardiovascular: Regular Rate, Rhythm Gastrointestinal: non tender, soft Neurologic/Psychiatric: Alert Skin: Warm/Dry Results Lab Laboratory Tests 08/02/17 05:28: White Blood Count 6.5, Red Blood Count 4.24L, Hemoglobin 13.9, Hematocrit 42, Mean Corpuscular Volume 99, Mean Corpuscular Hemoglobin 33, Mean Corpuscular Hemoglobin Concent 33, Red Cell Distribution Width 16.6H, Platelet Count 122L, Mean Platelet Volume 10.6H, Neutrophils (%) (Auto) 61, Lymphocytes (%) (Auto) 25 , Monocytes (%) (Auto) 10, Eosinophils (%) (Auto) 3, Basophils (%) (Auto) 0, Neutrophils # (Auto) 4.0, Lymphocytes # (Auto) 1.6, Monocytes # (Auto) 0.7, Eosinophils # (Auto) 0.2, Basophils # (Auto) 0.0, Sodium Level 140, Potassium Level 3.5L, Chloride Level 106, Carbon Dioxide Level 25, Anion Gap 9, Blood Urea Nitrogen 4L, Creatinine 0.62, Estimat Glomerular Filtration Rate > 60, BUN/ Creatinine Ratio 6, Glucose Level 95, Calcium Level 8.3L Assessment/Plan Assessment/Plan Assess & Plan/Chief Complaint lady with a history of melena, fresh rectal bleeding. Bowel preparation in progress. 4 upper endoscopy and colonoscopy in 48 hours. lady with a history of melena and rectal bleeding. No further bleeding noticed. Hemoglobin and vital signs stable. For upper and lower endoscopy tomorrow lady with rectal bleeding due to ischemic colitis and a rectal polyp. Polypectomy completed. Reasonable to treat conservatively with oral Flagyl and short-term follow-up. Could be discharged today with arrangements for follow- up with me in 2 weeks Admission Status: Inpatient Order (span 2 midnights) Final Diagnosis ischemic colitis. Rectal polyp Clinical Quality Measures DVT/VTE Risk/Contraindication: Risk Factor Score Per Nursin RFS Level Per Nursing on Admit: 4+=Very High Contraindications-Pharm: Other *list below* Other: SCDs ordered; Pharm VTE PPx contraindicated secondary to rectal bleeding GANGA PIEDRA MD Aug 02, 2017 12:21 pm
[2017-08-02] MEDS ORDERED: metroNIDAZOLE 500 MG (FLAGYL) TAB PO SCH (13:00)
--- NOTE | 2017-08-02 14:05 | Physical Therapy Evaluation ---
PT Evaluation-General Medical Diagnosis Admission Date Jul 30, 2017 at 11:33 Medical Diagnosis: N/V; dehydration Onset Date: Jul 30, 2017 Therapy Diagnosis Therapy Diagnosis: debility Height/Weight Height (Feet): 5 Height (Inches): 10.00 Weight (Pounds): 190 Weight (Ounces): 0.0 Precautions Precautions/Isolations: Fall Prevention, Standard Precautions Weight Bear Status Right Lower Extremity: Right Weight Bearing/Tolerated Left Lower Extremity: Left Weight Bearing/Tolerated Referral Physician: Jey Reason for Referral: Evaluation/Treatment Medical History Pertinent Medical History: COPD, Dementia, HTN Current History ED with rectal bleeding Reviewed History: Yes Social History Home: Single Level Current Living Status: Alone (?) Prior/Core FIM Prior Level of Function Functional [place] Measure 0=Not Assessed/NA 4=Minimal Assistance 1=Total Assistance 5=Supervision or Setup 2=Maximal Assistance 6=Modified [place] 3=Moderate Assistance 7=Complete [place] Bed Mobility: 7 Transfers (B,C,W/C) (FIM): 7 Gait: 7 PT Evaluation-Current Subjective Patient is in bed and agrees to PT. Pain Numeric Pain Scale: 0-No Pain Location: No Pain Reported Objective Patient Orientation: Confused Problem Solving: Fair ROM/Strength ROM Lower Extremities bilateral LE WNL Strength Lower Extremities bilateral LE WNL 5/5 grossly Integumentary/Posture Integumentary refer to nursing notes Bowel Incontinence: No Bladder Incontinence: No Posture WNL Neuromuscular (Tone, Coordination, Reflexes) grossly intact Sensory Vision: Functional Hearing: Functional Sensation Right Lower Extremit: Intact Sensation Left Lower Extremity: Intact Transfers Functional [place] Measure 0=Not Assessed/NA 4=Minimal Assistance 1=Total Assistance 5=Supervision or Setup 2=Maximal Assistance 6=Modified [place] 3=Moderate Assistance 7=Complete [place] Transfers (B, C, W/C) (FIM): 7 Scootin Rollin Supine to/from Sit: 7 Sit to/from Stand: 7 Gait Mode of Locomotion: Walk Anticipated Mode of Locomotion: Walk Gait (FIM): 7 Distance (FIM): 3=150 ft Distance: 500' Gait Level of Assist: 7 Gait Assistive Device: None Comments/Gait Description WBOS; functional gait sequence Balance Sitting Static: Normal Sitting Dynamic: Normal Standing Static: Normal Standing Dynamic: Normal Assessment/Needs 66 y.o. female, is currently at [facility] with all gross motor skills safely and does not require skilled PT intervention. Rehab Potential: Good PT Plan Treatment/Plan Treatment Plan: Discontinue PT, goals met Treatment Plan: Other Treatment Duration: Aug 02, 2017 Frequency: 1 time per week Estimated Hrs Per Day: .25 hour per day Patient and/or Family Agrees t: Yes Time/GCodes Time In: 1235 Time Out: 1253 Total Billed Treatment Time: 18 Total Billed Treatment 1 visit EVModC 18 min LIVIER LARSON PT Aug 02, 2017 14:05
[2017-08-02] MEDS ORDERED: PANTOPRAZOLE 40 MG (PROTONIX) TAB PO SCH (15:00)
--- NOTE | 2017-08-02 15:02 | Discharge Summary ---
Diagnosis/Chief Complaint Date of Admission Jul 30, 2017 at 11:33 Date of Discharge 08/02/17 Admission Diagnosis Admission Diagnosis Rectal Bleeding Weakness Dementia Discharge Diagnosis Ischemic Colitis -[address] Piedra Gastritis -started on PPI, continue after discharge per Dr. Piedra Rectal Bleeding Dementia -patient was diagnosed with moderate dementia last year by Dr. Nails and koleugher reports it has significantly progressed since then -daughter contacted social work and has DPOA, wants patient to go to SNF on discharge, many concerns about patient who is unable to safely live at home alone; when social work and daughter discussed SNF patient began screaming and yelling, said she didn't want to go and would rather -saw patient on rounds, asked about shelter and she stated she did not want to go, but speech is incredibly slow and agree that patient would not be able to safely take care of herself at home -exited room and spoke with social work, who reports that [facility] can come and evaluate patient, but patient would be willing -returned to room and told patient that we would like to monitor her in the building across the parking lot and have her participate in therapy and get stronger and make sure she gets her medicine, but that we could not keep her in the hospital to do this because it was full of germs and sick people, and we did not want patient to become ill from catching something from someone else; patient states that would be okay and thank you -patient was accepted at [facility]; sent with rx -discussed at length with daughter after patient left for [facility], who wanted to know how her mom agreed to go after she was so upset and screaming this morning; explained that a reframing of perspective approach was taken, and "shelter" was left out of the phrasing, and her mother was told what is stated above and that she simply said "ok, thank you". Daughter is very grateful and thankful that her mother is going to be in a safe place Chief Complaint/HPI Chief Complaint/HPI This is a 66 yo female patient of Lakhwinder Carroll APRN at [facility] who was for rectal bleeding. Pt was initially seen in the ER yesterday when bleeding started rectally. She was stable with normal hemoglobin and was DC to the care of her daughter with f/u w/ Dr. Piedra. At home with her daughter, pt had 19 more bloody stools and c/o of dizziness and stomach pain. Dr. Piedra was contacted and he recommended admission to us with plans for colonoscopy and EGD. Pt has demential and is poor historian but daughter is present and states she has never had hx of GI bleed. No know use of NSAID, ASA, or other medications putting her at risk for bleeding. Denies vomiting. Pt has no complaints at this time. Discharge Summary-Simple/Stand Consultations Discharge Physical Examination Allergies: Coded Allergies: morphine (Verified Allergy, Intermediate, 08/01/17) butorphanol (Verified Allergy, Unknown, 08/01/17) Vitals & I&Os Vital Sign - Last 12Hours Date Time Temp Pulse Resp B/P (MAP) Pulse Ox O2 Delivery O2 Flow Rate FiO2 08/02/17 13:37 Nasal Cannula 2.00 08/02/17 12:00 99.4 84 16 153/86 (108) 92 Intake and Output 08/02/17 00:00 Intake Total 950 ml Balance 950 ml General Appearance: Alert, Cooperative, No Acute Distress HEENT: Atraumatic, EOMI, Mucous Memb Moist/[place] Respiratory: Clear to Auscultation Cardiovascular: Regular Rate, Normal S1, Normal S2 Abdominal: Normal Bowel Sounds, Soft Extremities: No Clubbing, No Cyanosis Skin: No Rashes, No Significant Lesion Neuro: Normal Tone, Sensation Intact, Cranial Nerves 3-12 NL, Other (speech incredibly slow with flat affect) Psych/Mental Status: Mood NL, Other (significant dementia) Hospital Course See final discharge diagnosis. Discussion & Recommendations Concur with daugher and social work that patient's mental status has declined to the point that she is not safe to live at home; patient discharged to [facility] Discharge Condition at discharge Stable Instructions to patient/family Please see electronic discharge instructions given to patient. Discharge Medications Reviewed and agree with Discharge Medication list on patient's Discharge Instruction sheet Clinical Quality Measures DVT/VTE Risk/Contraindication: Risk Factor Score Per Nursin RFS Level Per Nursing on Admit: 4+=Very High Contraindications-Pharm: Other *list below* Other: SCDs ordered; Pharm VTE PPx contraindicated secondary to rectal bleeding Copy Copies To 1: [facility] [place] Copies To 2: GANGA PIEDRA MD, MARGARET E DO Aug 02, 2017 15:02
[2017-08-02] MEDS ORDERED: PANT40TA3 PO (15:06)
[2017-08-02] MEDS ORDERED: METR500T21 PO (15:06)
--- NOTE | 2017-08-02 15:12 | Discharge Inst-Skilled Nursing ---
Discharge [facility] NF Patient Instructions Patient Problems: Ischemic Colitis Dementia Generalized Debility Weakness Anxiety Hypertension Hyperlipidemia Goal: Improved cognition, strength building, function, and evaluation of patient safety in a home environment living alone Consult/Follow Up/Orders Follow up appt.: Charline Osullivan APRN will see patient at [facility] NF Admit to: [facility] Certifications SNF I certify that SNF services are required to be given on an inpatient basis because of the above named patient's need for fci care on a continuing basis for the conditions(s) for which he/she was receiving inpatient hospital services prior to his/her transfer to the SNF. Long Term Facility Order: Nursing Services, School Social Worker-Evaluate & Treat, Physical Therapy-Evaluate & Treat, Speech Language-Evaluate & Treat Discharge Diet: No Restrictions Daily Activity as Tolerated: Yes New & Resume Previous Orders New & Resume Previous Orders Routine Vital Signs PT/OT/ST as ordered Regular Diet Discharge Medications New, Converted or Re-Newed RX: RX on Chart New Medications: Metronidazole (Metronidazole) 500 Mg Tablet 500 MG PO TID for 5 Days, #5 TAB Pantoprazole Sodium (Pantoprazole Sodium) 40 Mg Tablet.dr 40 MG PO DAILY@0700 for 30 Days, #30 TAB Continued Medications: Buspirone HCl (Buspirone HCl) 10 Mg Tablet 10 MG PO BID, TAB Lisinopril (Lisinopril) 10 Mg Tablet 10 MG PO DAILY, TAB Lovastatin (Lovastatin) 20 Mg Tablet 20 MG PO HS, TAB Quetiapine Fumarate (Quetiapine Fumarate) 300 Mg Tablet 300 MG PO HS Gabby Coon Aug 02, 2017 15:07 GABBY COON DO Aug 02, 2017 15:12
[2017-08-02 15:55] VITALS: BP 161/75
[2017-08-02] MEDS ORDERED: BUSP10TA95 PO (15:58)
[2017-08-02 16:18] VITALS: BP 161/75
== END 2017-08-02 16:18 | DRG 393 ==
LOC: 4TH 11:33
PROVIDERS: ADMIT Surgery; ATTEND Family Medicine
PROC: 0DBP8ZX Excision of Rectum, Via Natural or Artificial Opening Endoscopic, Diagnostic (ICD-10-PCS; principal; 2017-08-01 08:00)
PROC: 0DBM8ZX Excision of Descending Colon, Via Natural or Artificial Opening Endoscopic, Diagnostic (ICD-10-PCS; 2017-08-01 08:00)
DX: K55.9 Vascular disorder of intestine, unspecified (principal); K25.4 Chronic or unspecified gastric ulcer with hemorrhage; K62.5 Hemorrhage of anus and rectum; D12.8 Benign neoplasm of rectum; R11.2 Nausea with vomiting, unspecified; E86.0 Dehydration; E87.6 Hypokalemia; I10 Essential (primary) hypertension; E78.5 Hyperlipidemia, unspecified; F03.90 Unspecified dementia, unspecified severity, without behavioral disturbance, psychotic disturbance, mood disturbance, and anxiety; K21.9 Gastro-esophageal reflux disease without esophagitis; F41.9 Anxiety disorder, unspecified; F32.9 Major depressive disorder, single episode, unspecified; F17.210 Nicotine dependence, cigarettes, uncomplicated
CPT/HCPCS: 36415; 80048; 80053; 85025; 85027

== ENCOUNTER → 2017-07-30 | Outpatient (CLI) | payer OTHER ==
[~2017-07-30] VITALS: Ht 177.8 cm; Wt 90.7 kg
[~2017-07-30] MED LIST changes: +BUSP10TA95 PO; +LISI10TA2 PO; +LOVA20TA2 PO; +QUET300T2 PO; +QUET300T44 PO
== END ==
LOC: PREOP 05:42
PROVIDERS: ATTEND Surgery
DX: Z01.818 Encounter for other preprocedural examination (principal); K92.1 Melena

== ENCOUNTER → 2017-08-13 | Outpatient (CLI) | payer MEDICARE, OTHER ==
[~2017-08-13] MED LIST changes: +METR500T21 PO; +PANT40TA3 PO; +QUET300T44 PO
--- NOTE | 2017-08-13 13:51 | Diagnostic Imaging Report ---
PROCEDURE: US left lower extremity venous. TECHNIQUE: Multiple real-time grayscale images were obtained over the left lower extremity in various projections. Additional duplex Doppler and color Doppler images were also obtained. INDICATION: Left leg pain and swelling The common femoral, superficial femoral, popliteal veins appear to be occluded. There is no compressibility. There is lack of spontaneous and augmented flow. IMPRESSION: Extensive deep vein thrombosis in left leg from the groin into calf region of the left leg. Provider was notified of findings. Dictated by: Dictated on workstation # [id number]
== END ==
LOC: RAD 12:03
PROVIDERS: ATTEND Nurse Practitioner Community Health
DX: I82.4Z2 Acute embolism and thrombosis of unspecified deep veins of left distal lower extremity (principal)

== ENCOUNTER 2017-08-19 09:55 | Emergency (ER) | payer OTHER ==
[~2017-08-19] VITALS: Ht 170.2 cm; Wt 81.6 kg
[2017-08-19 10:46] LABS: BASOPHILS % (AUTO) 0 % (0-10); EOSINOPHILS # (AUTO) 0.3 10^3/uL (0.0-0.3); EOSINOPHILS % (AUTO) 4 % (0-10); HEMATOCRIT 44 % (35-52); HEMOGLOBIN 14.8 G/DL (11.5-16.0); LYMPHOCYTES # (AUTO) 1.8 X 10^3 (1.0-4.0); LYMPHOCYTES % (AUTO) 21 % (12-44); MEAN CORPUSCULAR HEMOGLOBIN 34 PG (25-34); MEAN CORPUSCULAR HGB CONC 34 G/DL (32-36); MEAN CORPUSCULAR VOLUME 101 FL (80-99); MEAN PLATELET VOLUME 10.3 FL (7.4-10.4); MONOCYTES # (AUTO) 0.9 X 10^3 (0.0-1.0); MONOCYTES % (AUTO) 10 % (0-12); NEUTROPHILS # (AUTO) 5.4 X 10^3 (1.8-7.8); NEUTROPHILS % (AUTO) 65 % (42-75); PLATELET COUNT 252 10^3/uL (130-400); WHITE BLOOD COUNT 8.4 10^3/uL (4.3-11.0)
--- OUTSIDE RECORDS SUMMARY | 2017-08-19 11:07 | XMS REPORT ---
Author Author DEANA ARANDA Organization [employer] Address Unknown Phone Unavailable Care Team Providers Care Polysomnographer Name Role Phone DEANA ARANDA CP Unavailable Allergies No Known Allergies Problems Problem Type Condition Code Onset Dates Condition Status Problem Dementia without behavioral disturbance, unspecified dementia type F03.90 Active Problem Essential hypertension I10 Active Problem 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 Assessment Major depression F32.9 Active Assessment Cognitive dysfunction F09 Active Problem Mood disorder F39 Active Assessment Anxiety disorder, unspecified F41.9 Active Medications Medication Code System Code Instructions Start Date End Date Status Dosage Nexium 24HR [facility] [address]-63 20 MG Orally Once a day 1 capsule Lisinopril [facility] [address]-87 10 MG Orally 1 tablet Seroquel [facility] [address]-72 200 MG Orally Once a day Feb 01, 2016 1 tablet at bedtime Fish Oil [facility] [address]-05 1000 MG Orally Once a day 1 capsule Vitamin C [facility] [address]-07 500 mg September 29, 2013 1 tablet by Oral route 1 time per day BusPIRone HCl [facility] [address]-35 10 MG Orally Twice a day 1 tablet Lovastatin [facility] 48540831640 20 MG Once a day 1 tablets Procedures Procedure Coding System Code Date Office Visit, Est Pt., Level 3 CPT-4 85355 Feb 01, 2016 Vital Signs Date/Time: Feb 01, 2016 Cardiac Monitoring Heart Rate 82 bpm Weight 204.6 lbs Height 68.25 in BMI 30.88 Index Blood Pressure Diastolic 86 mmHg Blood Pressure Systolic 130 mmHg Results No Known Results Summary Purpose [employer] Submission
--- OUTSIDE RECORDS SUMMARY | 2017-08-19 11:07 | XMS REPORT | Clinical Summary ---
Author Author [facility] Address Unknown Phone Unavailable Care Team Providers Care Six Horse Hitch Driver Name Role Phone PP Unavailable Allergies Not on File Current Medications Not on file Active Problems Not on file Social History Tobacco Use Types Packs/Day Years Used Date Never Assessed Sex Assigned at Date Recorded Not on file Plan of Treatment Health Maintenance Due Date Last Done Comments Hepatitis C Screening 1950 DTaP,Tdap,and Td Vaccines 10/08/1971 (1 - Tdap) CERVICAL CANCER SCREENING 1973 Breast Cancer 2002 Screening-Mammogram Colon Cancer Screening 2002 Zoster Vaccine (#1) 2012 Influenza Vaccine (#1) 2017 Results Not on filefrom Last 3 Months
--- OUTSIDE RECORDS SUMMARY | 2017-08-19 11:07 | XMS REPORT ---
Author Author MORENA MONTENEGRO [facility] [employer] Address Unknown Phone Unavailable Care Team Providers Care Fuel Cell Systems Engineer Name Role Phone MORENA MONTENEGRO CP Unavailable Allergies No Known Allergies Problems Problem Type Condition Code Onset Dates Condition Status Problem PPV23 (PNEUMOVAX) DX V03.82 Active Problem Pneumonia, organism unspecified 486 Active Problem Unspecified gastritis and gastroduodenitis without mention of hemorrhage 535.50 Active Problem Need for prophylactic vaccination and inoculation, Influenza V04.81 Active Problem Counseling on substance use and abuse V65.42 Active Problem Hypertension 401.9 Active Problem Nausea alone 787.02 Active Problem Nausea with vomiting 787.01 Active Problem Nondependent tobacco use disorder 305.1 Active Problem Acute bronchitis 466.0 Active Assessment Encounter for immunization Z23 Active Problem Intestinal infection due to other organism, NEC 008.8 Active Problem Acute pharyngitis 462 Active Problem Acute upper respiratory infections of unspecified site 465.9 Active Problem Encounter for removal of sutures V58.32 Active Problem Impacted cerumen 380.4 Active Problem Cough 786.2 Active Problem Sebaceous cyst 706.2 Active Medications No Known Medications Procedures Procedure Coding System Code Date FLUARIX QUAD (3 & UP)-GSK CPT-4 53550 Apr 04, 2015 SINGLE IMMUNIZATION ADMIN CPT-4 19951 Apr 04, 2015 PPV23 (PNEUMOVAX) CPT-4 60340 Apr 04, 2015 IMMUNIZATION ADMIN, EACH ADD (please include units) CPT-4 19546 Apr 04, 2015 Results No Known Results Immunizations Vaccine Administration Date FLUARIX QUAD (3 & UP)-GSK-2014Apr 04, 2015 PPV23 (PNEUMOVAX) Apr 04, 2015 Summary Purpose [employer] Submission
--- OUTSIDE RECORDS SUMMARY | 2017-08-19 11:07 | XMS REPORT ---
Author Author MORENA MONTENEGRO Organization [employer] Address Unknown Phone Unavailable Care Team Providers Care Rotary Derrick Operator Name Role Phone MORENA MONTENEGRO CP Unavailable Allergies No Known Allergies Problems Problem Type Condition Code Onset Dates Condition Status Problem Essential hypertension I10 Active Medications Medication Code System Code Instructions Start Date End Date Status Dosage Lovastatin [facility] [address]-52 20 MG Orally Once a day PT NEEDS AN APPT FOR FURTHER REFILLS Apr 25, 2015 1 tablet with a meal Amlodipine Besylate [facility] [address]-74 5 MG Orally Once a day May 27, 2015 1 tablet Lisinopril [facility] [address]-04 20 MG Orally Once a day PT NEEDS AN APPT FOR FURTHER REFILLS Apr 25, 2015 1 tablet Results No Known Results Summary Purpose eClinicalWorks Submission
--- OUTSIDE RECORDS SUMMARY | 2017-08-19 11:08 | XMS REPORT ---
Author Author MORENA MONTENEGRO Organization [employer] Address Unknown Phone Unavailable Care Team Providers Care Product Managent Intern Name Role Phone MORENA MONTENEGRO CP Unavailable Allergies No Known Allergies Problems Problem Type Condition Code Onset Dates Condition Status Problem Essential hypertension I10 Active Medications Medication Code System Code Instructions Start Date End Date Status Dosage Amlodipine Besylate [facility] [address]-19 5 MG Orally Once a day May 27, 2015 1 tablet Lovastatin [facility] [address]-91 20 MG Orally Once a day PT NEEDS AN APPT FOR FURTHER REFILLS Apr 25, 2015 1 tablet with a meal Lisinopril [facility] [address]-51 20 MG Orally Once a day PT NEEDS AN APPT FOR FURTHER REFILLS Apr 25, 2015 1 tablet Results No Known Results Summary Purpose eClinicalWorks Submission
--- OUTSIDE RECORDS SUMMARY | 2017-08-19 11:08 | XMS REPORT ---
Author Author MORENA MONTENEGRO [facility] eClinical[employer] Address Unknown Phone Unavailable Care Team Providers Care Field Tech Name Role Phone MORENA MONTENEGRO CP Unavailable Allergies No Known Allergies Problems Problem Type Condition Code Onset Dates Condition Status Assessment Cognitive dysfunction F09 Active Assessment Edema R60.9 Active Problem Essential hypertension I10 Active Medications No Known Medications Procedures Procedure Coding System Code Date COMPLETE CBC W/AUTO DIFF WBC CPT-4 47843 October 04, 2015 NATRIURETIC PEPTIDE CPT-4 83373 October 04, 2015 ASSAY THYROID STIM HORMONE CPT-4 06828 October 04, 2015 COMPREHEN METABOLIC PANEL CPT-4 80746 October 04, 2015 LIPID PANEL CPT-4 14598 October 04, 2015 VENIPUNCT, ROUTINE* CPT-4 64976 October 04, 2015 Results Name Result Date Reference Range Unit Abnormality Flag BNP ----B-Type Natriuretic Peptide 17.0 [id number] 0.0-100.0 pg/mL LIPID PANEL ----LDL Cholesterol Calc 88 02656937 0-99 mg/dL ----VLDL Cholesterol Jean 24 99663977 5-40 mg/dL ----Cholesterol, Total 181 [id number] 100-199 mg/dL ----HDL Cholesterol 69 [id number] >39 mg/dL ----Triglycerides 119 02120837 0-149 mg/dL ROUTINE VENIPUNCTURE TSH ----TSH 2.790 [id number] 0.450-4.500 uIU/mL CMP ----Potassium, Serum 4.2 23407543 3.5-5.2 mmol/L ----Sodium, Serum 140 61254526 134-144 mmol/L ----BUN/Creatinine Ratio 7 20151004 11-26 L ----eGFR If Africn Am 108 [id number] >59 mL/min/1.73 ----eGFR If NonAfricn Am 94 [id number] >59 mL/min/1.73 ----Creatinine, Serum 0.69 35251519 0.57-1.00 mg/dL ----BUN 5 20151004 8-27 mg/dL L ----Glucose, Serum 101 20151004 65-99 mg/dL H ----AST (SGOT) 17 20151004 0-40 IU/L ----Globulin, Total 2.0 20151004 1.5-4.5 g/dL ----ALT (SGPT) 11 20151004 0-32 IU/L ----A/G Ratio 2.1 20151004 1.1-2.5 ----Bilirubin, Total 0.4 20151004 0.0-1.2 mg/dL ----Alkaline Phosphatase, S 60 20151004 39-117 IU/L ----Carbon Dioxide, Total 24 20151004 18-29 mmol/L ----Calcium, Serum 9.1 20151004 8.7-10.3 mg/dL ----Protein, Total, Serum 6.2 20151004 6.0-8.5 g/dL ----Albumin, Serum 4.2 20151004 3.6-4.8 g/dL ----Chloride, Serum 99 20151004 97-108 mmol/L Summary Purpose eClinicalWorks Submission
--- OUTSIDE RECORDS SUMMARY | 2017-08-19 11:08 | XMS REPORT ---
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 100683892 Problem Dementia without behavioral disturbance, unspecified dementia type F03.90 Active 33209481 Problem Major depression F32.9 Active 823102718 Problem Cognitive dysfunction F09 Active 876039449 ALLERGIES Substance Reaction Event Type Date Status Stadol hives Drug Allergy Apr, Active Morphine Sulfate hives Drug Allergy Apr, Active Iodinated Contrast Media - Iv Dye Unknown Non Drug Allergy Apr, Active SOCIAL HISTORY No smoking Hx information available PLAN OF CARE Activity Details Follow Up 2 Months Reason: VITAL SIGNS Height 68.25 in 2016-04-23 Weight 200 lbs 2016-04-23 Heart Rate 74 bpm 2016-04-23 Respiratory Rate 16 2016-04-23 BMI 30.18 kg/m2 2016-04-23 Blood pressure systolic 132 mmHg 2016-04-23 Blood pressure diastolic 78 mmHg 2016-04-23 MEDICATIONS Medication Instructions Dosage Frequency Start Date End Date Duration Status Nexium 24HR 20 MG Orally Once a day 1 capsule 24h Active Fish Oil 1000 MG Orally Once a day 1 capsule 24h Active BusPIRone HCl 10 MG TAKE ONE TABLET BY MOUTH TWICE DAILY 30 Active Vitamin C 500 mg 1 tablet by Oral route 1 time per day Sep, Active Seroquel 300 MG Orally Once a day 1 tablet at bedtime 24h Apr, 30 day(s) Active Lisinopril 10 MG 1 tablet 30 Active Lovastatin 20 MG 1 tablets 24h 30 Active RESULTS No Results PROCEDURES Procedure Date Ordered Related Diagnosis Body Site MH Office Visit, Est Pt., Level 3 Apr 23, 2016 IMMUNIZATIONS No Known Immunizations
--- OUTSIDE RECORDS SUMMARY | 2017-08-19 11:08 | XMS REPORT ---
Author Author MORENA MONTENEGRO [facility] Address [address] [place] [address] Care Team Providers Care Embossing Press Operator Molded Goods Name Role Phone MORENA MONTENEGRO Unavailable PROBLEMS Type Condition ICD9-CM Code IYR14-PN Code Onset Dates Condition Status SNOMED Code Problem Essential hypertension I10 Active 27022775 Problem Mood disorder F39 Active 13601117 Problem Hypertension, benign I10 Active 41018809 Problem Anxiety disorder, unspecified F41.9 Active 258992564 Problem Dementia without behavioral disturbance, unspecified dementia type F03.90 Active 05601840 Problem 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 719826758 Problem Major depression F32.9 Active 322225629 Problem Cognitive dysfunction F09 Active 250812397 ALLERGIES Substance Reaction Event Type Date Status Stadol hives Drug Allergy October, Active Morphine Sulfate hives Drug Allergy October, Active Iodinated Contrast Media - Iv Dye Unknown Non Drug Allergy October, Active SOCIAL HISTORY Never Assessed PLAN OF CARE VITAL SIGNS Height 68.25 in 2016-11-02 Weight 199.2 lbs 2016-11-02 Temperature 98.5 degrees Fahrenheit 2016-11-02 Heart Rate 84 bpm 2016-11-02 Respiratory Rate 18 2016-11-02 BMI 30.06 kg/m2 2016-11-02 Blood pressure systolic 143 mmHg 2016-11-02 Blood pressure diastolic 92 mmHg 2016-11-02 MEDICATIONS Medication Instructions Dosage Frequency Start Date End Date Duration Status Lisinopril 10 MG TAKE ONE TABLET BY MOUTH ONCE DAILY 30 Active Seroquel 300 MG Orally Once a day 1 tablet at bedtime 24h Apr, 30 days Active Lovastatin 20 MG 1 tablets 24h 30 Active Vitamin C 500 mg 1 tablet by Oral route 1 time per day Sep, Active BusPIRone HCl 10 MG Orally Twice a day 1 tablet 12h 30 days Active Nexium 24HR 20 MG Orally Once a day 1 capsule 24h Active Fish Oil 1000 MG Orally Once a day 1 capsule 24h Active RESULTS No Results PROCEDURES No Known procedures IMMUNIZATIONS No Known Immunizations MEDICAL (GENERAL) HISTORY Type Description Date Medical History hypertension Medical History anxiety Medical History depression (hx of ECT x2) Medical History insomnia Surgical History appendectomy Surgical History hysterectomy 1985 Surgical History section x2 (1978 & 1980) Hospitalization History multiple [facility] admissions r/t depression; pt has had electrical lesvia therapy multiple times and 2 suicide attempts
--- OUTSIDE RECORDS SUMMARY | 2017-08-19 11:08 | XMS REPORT ---
Author Author MORENA MONTENEGRO Organization [employer] Address Unknown Phone Unavailable Care Team Providers Care Surface Supervisor Name Role Phone MORENA MONTENEGRO CP Unavailable Allergies, Adverse Reactions, Alerts Substance Reaction Event Type Stadol hives Drug Allergy Morphine Sulfate hives Drug Allergy Iodinated Contrast Media - Iv Dye Info Not Available Non Drug Allergy Problems Problem Type Condition Code Onset Dates Condition Status Assessment Cognitive dysfunction F09 Active Assessment Edema R60.9 Active Problem Essential hypertension I10 Active Medications Medication Code System Code Instructions Start Date End Date Status Dosage Vitamin C [facility] [address]-83 500 mg September 29, 2013 1 tablet by Oral route 1 time per day Seroquel [facility] [address]-33 300 MG Orally Once a day 2 tablets Lisinopril [facility] [address]-35 10 MG Orally 1 tablet Fish Oil [facility] [address]-81 1000 MG Orally Once a day 1 capsule Nexium 24HR [facility] [address]-83 20 MG Orally Once a day 1 capsule BusPIRone HCl [facility] 37761282453 10 MG Orally Twice a day 1 tablet Lovastatin [facility] [address]-57 20 MG Once a day 1 tablets Procedures Procedure Coding System Code Date Office Visit, Est Pt., Level 3 CPT-4 85727 October 03, 2015 Vital Signs Date/Time: October 03, 2015 Temperature 96.8 F Weight 205.6 lbs Height 68.25 in BMI 31.03 Index Blood Pressure Diastolic 78 mmHg Blood Pressure Systolic 118 mmHg Cardiac Monitoring Heart Rate 92 bpm Results No Known Results Summary Purpose eClinicalWorks Submission
--- OUTSIDE RECORDS SUMMARY | 2017-08-19 11:08 | XMS REPORT ---
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
--- OUTSIDE RECORDS SUMMARY | 2017-08-19 11:08 | XMS REPORT ---
Author Author DEANA ARANDA Organization [employer] Address Unknown Phone Unavailable Care Team Providers Care Skiver Sock Linings Name Role Phone DEANA ARANDA CP Unavailable [...] Active Problem Acute bronchitis 466.0 Active Assessment Major depression F32.9 Active Problem Intestinal infection due to other organism, NEC 008.8 Active Problem Acute pharyngitis 462 Active Problem Acute upper respiratory infections of unspecified site 465.9 Active Problem Encounter for removal of sutures V58.32 Active Problem Impacted cerumen 380.4 Active Problem Cough 786.2 Active Problem Sebaceous cyst 706.2 Active Medications No Known Medications Procedures Procedure Coding System Code Date LIPID PANEL CPT-4 45452 Apr 05, 2015 ASSAY THYROID STIM HORMONE CPT-4 04825 Apr 05, 2015 COMPREHEN METABOLIC PANEL CPT-4 40764 Apr 05, 2015 MANUAL CELL COUNT, EACH CPT-4 51197 Apr 05, 2015 ASSAY OF FREE THYROXINE CPT-4 70011 Apr 05, 2015 VENIPUNCT, ROUTINE* CPT-4 66772 Apr 05, 2015 Results No Known Results Summary Purpose eClinicalWorks Submission
--- OUTSIDE RECORDS SUMMARY | 2017-08-19 11:08 | XMS REPORT ---
Author Author ARUN VEGA [facility] e[employer]Works Address Unknown Phone Unavailable Care Team Providers Care Solicitor Patent Name Role Phone ARUN VEGA CP Unavailable [...]
--- OUTSIDE RECORDS SUMMARY | 2017-08-19 11:08 | XMS REPORT ---
Author Author DEANA ARANDA Organization [employer] Address Unknown Phone Unavailable Care Team Providers Care Server Manager Name Role Phone DEANA ARANDA CP Unavailable Allergies, Adverse Reactions, Alerts Substance Reaction Event Type Stadol hives Drug Allergy Morphine Sulfate hives Drug Allergy Iodinated Contrast Media - Iv Dye Info Not Available Non Drug Allergy Problems Problem Type Condition Code Onset Dates Condition Status Assessment Anxiety disorder, unspecified F41.9 Active Assessment Major depression F32.9 Active Problem Essential hypertension I10 Active Medications Medication Code System Code Instructions Start Date End Date Status Dosage Vitamin C [facility] [address]-73 500 mg September 29, 2013 1 tablet by Oral route 1 time per day Seroquel [facility] [address]-45 300 MG Orally Once a day 2 tablets Lovastatin [facility] [address]-39 20 MG Orally Once a day PT NEEDS AN APPT FOR FURTHER REFILLS Apr 25, 2015 1 tablet with a meal BusPIRone HCl [facility] 61991113672 10 MG Orally Twice a day 1 tablet Fish Oil [facility] [address]-70 1000 MG Orally Once a day 1 capsule Amlodipine Besylate [facility] 44703672097 5 MG TAKE ONE TABLET BY MOUTH DAILY Lisinopril [facility] [address]-30 20 MG Orally Once a day PT NEEDS AN APPT FOR FURTHER REFILLS Apr 25, 2015 1 tablet Procedures Procedure Coding System Code Date Office Visit, Est Pt., Level 3 CPT-4 12297 Jul 04, 2015 Vital Signs Date/Time: Jul 04, 2015 Blood Pressure Systolic 110 mmHg Weight 205.6 lbs Height 68.25 in BMI 31.03 Index Blood Pressure Diastolic 62 mmHg Results No Known Results Summary Purpose eClinicalWorks Submission
--- OUTSIDE RECORDS SUMMARY | 2017-08-19 11:08 | XMS REPORT ---
Author Author CHANDLER GOLD Organization [employer] Address Unknown Phone Unavailable Care Team Providers Care Keyseating Machine Set Up Operator Name Role Phone CHANDLER GOLD CP Unavailable Allergies, Adverse Reactions, Alerts Substance Reaction Event Type Stadol hives Drug Allergy Morphine Sulfate hives Drug Allergy Iodinated Contrast Media - Iv Dye Info Not Available Non Drug Allergy Problems Problem Type Condition Code Onset Dates Condition Status Assessment Nausea R11.0 Active Problem Essential hypertension I10 Active Medications Medication Code System Code Instructions Start Date End Date Status Dosage Vitamin C [facility] [address]-35 500 mg September 29, 2013 1 tablet by Oral route 1 time per day Amlodipine Besylate [facility] 35624098905 5 MG TAKE ONE TABLET BY MOUTH DAILY Seroquel [facility] [address]-99 300 MG TAKE TWO TABLETS BY MOUTH DAILY Promethazine HCl [facility] [address]-33 12.5 MG Orally 2 times a day May 19, 2015 May 29, 2015 1 tablet as needed Lisinopril [facility] [address]-98 20 MG Orally Once a day PT NEEDS AN APPT FOR FURTHER REFILLS Apr 25, 2015 1 tablet Lovastatin [facility] [address]-10 20 MG Orally Once a day PT NEEDS AN APPT FOR FURTHER REFILLS Apr 25, 2015 1 tablet with a meal BusPIRone HCl [facility] 02331965754 10 MG Orally Twice a day 1 tablet Fish Oil [facility] [address]-36 1000 MG Orally Once a day 1 capsule Procedures Procedure Coding System Code Date Office Visit, Est Pt., Level 3 CPT-4 59012 May 19, 2015 Vital Signs Date/Time: May 19, 2015 Temperature 98.0 F Weight 202.9 lbs Height 68.25 in BMI 30.62 Index Blood Pressure Diastolic 70 mmHg Blood Pressure Systolic 120 mmHg Cardiac Monitoring Heart Rate 94 bpm Results No Known Results Summary Purpose eClinicalWorks Submission
--- OUTSIDE RECORDS SUMMARY | 2017-08-19 11:09 | XMS REPORT ---
Author Author ARUN VEGA [facility] eClinicalWorks Address Unknown Phone Unavailable Care Team Providers Care Urologist Physician Name Role Phone ARUN VEGA CP Unavailable Allergies, Adverse Reactions, Alerts Substance [...] disease without behavioral disturbance F02.80 Active Assessment Dementia without behavioral disturbance, unspecified dementia type F03.90 Active Medications Medication Code System Code Instructions Start Date End Date Status Dosage Nexium 24HR [facility] [address]-86 20 MG Orally Once a day [address] [facility] [address]-99 300 MG Orally Once a day [address] [facility] [address]-71 20 MG Once a day 1 tablets Fish Oil [facility] [address]-09 1000 MG Orally Once a day 1 capsule Vitamin C [facility] [address]-72 500 mg September 29, 2013 1 tablet by Oral route 1 time per day BusPIRone HCl [facility] 43014979161 10 MG Orally Twice a day [address] [facility] [address]-22 10 MG Orally 1 tablet Procedures Procedure Coding System Code Date Office Visit, Est Pt., Level 4 CPT-4 95318 November 01, 2015 Vital Signs Date/Time: November 01, 2015 Cardiac Monitoring Heart Rate 104 bpm Weight 207.1 lbs Height 68.25 in Blood Pressure Diastolic 86 mmHg Blood Pressure Systolic 132 mmHg Results No Known Results Summary Purpose eClinicalWorks Submission
--- OUTSIDE RECORDS SUMMARY | 2017-08-19 11:09 | XMS REPORT ---
Author Author MORENA MONTENEGRO Organization [employer] Address Unknown Phone Unavailable Care Team Providers Care Junior Designer Name Role Phone MORENA MONTENEGRO CP Unavailable [...] 305.1 Active Problem Acute bronchitis 466.0 Active Problem Intestinal infection due to other organism, NEC 008.8 Active Problem Acute pharyngitis 462 Active Problem Acute upper respiratory infections of unspecified site 465.9 Active Problem Encounter for removal of sutures V58.32 Active Problem Impacted cerumen 380.4 Active Problem Cough 786.2 Active Problem Sebaceous cyst 706.2 Active Medications Medication Code System Code Instructions Start Date End Date Status Dosage Lisinopril [facility] [address]-25 20 MG Orally Once a day PT NEEDS AN APPT FOR FURTHER REFILLS Apr 25, 2015 1 tablet Lovastatin [facility] [address]-57 20 MG Orally Once a day PT NEEDS AN APPT FOR FURTHER REFILLS Apr 25, 2015 1 tablet with a meal Results No Known Results Summary Purpose eClinicalWorks Submission
--- OUTSIDE RECORDS SUMMARY | 2017-08-19 11:09 | XMS REPORT ---
Author Author DEANA ARANDA [facility] eClinicalWorks Address Unknown Phone Unavailable Care Team Providers Care Carpenter Inspector Name Role Phone DEANA ARANDA CP Unavailable [...] due to other organism, NEC 008.8 Active Assessment Anxiety disorder, unspecified F41.9 Active Problem Acute pharyngitis 462 Active Problem Acute upper respiratory infections of unspecified site 465.9 Active Problem Encounter for removal of sutures V58.32 Active Problem Impacted cerumen 380.4 Active Problem Cough 786.2 Active Problem Sebaceous cyst 706.2 Active Medications Medication Code System Code Instructions Start Date End Date Status Dosage Vitamin C [facility] [address]-64 500 mg September 29, 2013 1 tablet by Oral route 1 time per day Fish Oil [facility] [address]-42 1000 MG Orally Once a day 1 capsule amlodipine [facility] [address]-20 5 mg May 28, 2014 take 1 tablet by Oral route 1 time per day Seroquel [facility] [address]-51 300 MG Orally Once a day Jul 26, 2014 2 tablets BusPIRone HCl [facility] [address]-11 10 MG Orally Twice a day December 08, 2014 1 tablet Lovastatin [facility] [address]-40 20 MG Once a day May 28, 2014 take 1 tablet by Oral route with the evening meal 1 time per day Lisinopril [facility] [address]-49 20 MG Once a day May 28, 2014 1 tablet Procedures Procedure Coding System Code Date MH Office Visit, Est Pt., Level 3 CPT-4 89541 Apr 01, 2015 Vital Signs Date/Time: Apr 01, 2015 Cardiac Monitoring Heart Rate 92 bpm Weight 200.6 lbs Height 68.25 in BMI 30.27 Index Blood Pressure Diastolic 76 mmHg Blood Pressure Systolic 114 mmHg Results No Known Results Summary Purpose eClinicalWorks Submission
--- OUTSIDE RECORDS SUMMARY | 2017-08-19 11:09 | XMS REPORT ---
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
--- OUTSIDE RECORDS SUMMARY | 2017-08-19 11:10 | XMS REPORT | Continuity of Care Document ---
Author Author [facility] Address Unknown Phone Unavailable Allergies Active Description Code Type Severity Reaction Onset Reported/Identified Relationship to Patient Clinical Status Yes morphine Drug Allergy N/A N/A 07/13/2009 Yes Stadol Drug Allergy N/A N/A 07/13/2009 Yes morphine Drug Allergy 07/13/2009 Yes Stadol Drug Allergy 07/13/2009 Yes Iodinated Contrast Media - IV Dye Drug Allergy N/A N/A 09/29/2013 Yes SHELLFISH Food Allergy N/A N/A 09/29/2013 Medications There is no data. Problems Date Dx Coded Attending Type Code Diagnosis Diagnosed By 05/20/2009 MORENA MONTENEGRO APRN 300.00 AN ANXIETY UNSPEC 05/20/2009 MORENA MONTENEGRO APRN 303.90 SA ALCOHOL DEPENDENCE 05/20/2009 MORENA MONTENEGRO APRN 307.47 SI DYSSOMNIA NOS 05/20/2009 MORENA MONTENEGRO APRN 311 MO DEPRESS NOS 05/20/2009 TRENT STORM DO 300.00 AN ANXIETY UNSPEC 05/20/2009 TRENT TSORM DO 303.90 SA ALCOHOL DEPENDENCE 05/20/2009 TRENT STORM DO 307.47 SI DYSSOMNIA NOS 05/20/2009 TRENT STORM DO 311 MO DEPRESS NOS 05/20/2009 300.00 AN ANXIETY UNSPEC 05/20/2009 303.90 SA ALCOHOL DEPENDENCE 05/20/2009 307.47 SI DYSSOMNIA NOS 05/20/2009 311 MO DEPRESS NOS 05/20/2009 MORENA MONTENEGRO APRN 300.00 AN ANXIETY UNSPEC 05/20/2009 MORENA MONTENEGRO APRN 303.90 SA ALCOHOL DEPENDENCE 05/20/2009 MORENA MONTENEGRO APRN 307.47 SI DYSSOMNIA NOS 05/20/2009 MORENA MONTENEGRO APRN 311 MO DEPRESS NOS 05/20/2009 TRENT STORM DO 300.00 AN ANXIETY UNSPEC 05/20/2009 WERDER DO, TRENT F 303.90 SA ALCOHOL DEPENDENCE 05/20/2009 EMETERIO DOTRENT F 307.47 SI DYSSOMNIA NOS 05/20/2009 TRENT STORM DO 311 MO DEPRESS NOS 05/20/2009 300.00 AN ANXIETY UNSPEC 05/20/2009 303.90 SA ALCOHOL DEPENDENCE 05/20/2009 307.47 SI DYSSOMNIA NOS 05/20/2009 311 MO DEPRESS NOS 05/20/2009 300.00 AN ANXIETY UNSPEC 05/20/2009 303.90 SA ALCOHOL DEPENDENCE 05/20/2009 307.47 SI DYSSOMNIA NOS 05/20/2009 311 MO DEPRESS NOS 05/20/2009 MORENA MONTENEGRO APRN 300.00 AN ANXIETY UNSPEC 05/20/2009 MORENA MONTENEGRO APRN 303.90 SA ALCOHOL DEPENDENCE 05/20/2009 MORENA MONTENEGRO APRN 307.47 SI DYSSOMNIA NOS 05/20/2009 MORENA MONTENEGRO APRN 311 MO DEPRESS NOS 05/20/2009 ZULETA DO, ARTI K 300.00 AN ANXIETY UNSPEC 05/20/2009 ZULETA DO, ARTI K 303.90 SA ALCOHOL DEPENDENCE 05/20/2009 ZULETA DO, ARTI K 307.47 SI DYSSOMNIA NOS 05/20/2009 ZULETA DO, ARTI K 311 MO DEPRESS NOS 05/20/2009 ZULETA DO, ARTI K 300.00 AN ANXIETY UNSPEC 05/20/2009 ZULETA DO, ARTI K 303.90 SA ALCOHOL DEPENDENCE 05/20/2009 ZULETA DO, ARTI K 307.47 SI DYSSOMNIA NOS 05/20/2009 ZULETA DO, ARTI K 311 MO DEPRESS NOS 05/20/2009 ARUN VEGA MD 300.00 AN ANXIETY UNSPEC 05/20/2009 ARUN VEGA MD 303.90 SA ALCOHOL DEPENDENCE 05/20/2009 ARUN VEGA MD 307.47 SI DYSSOMNIA NOS 05/20/2009 ARUN VEGA MD 311 MO DEPRESS NOS 05/20/2009 ZULETA DO, ARTI K 300.00 AN ANXIETY UNSPEC 05/20/2009 ZULETA DO, ARTI K 303.90 SA ALCOHOL DEPENDENCE 05/20/2009 ZULETA DO, ARTI K 307.47 SI DYSSOMNIA NOS 05/20/2009 ZULETA DO, ARTI K 311 MO DEPRESS NOS 05/20/2009 ZULETA DO, ARTI K 300.00 AN ANXIETY UNSPEC 05/20/2009 ZULETA DO, ARTI K 303.90 SA ALCOHOL DEPENDENCE 05/20/2009 MERLYN CURRAN, ARTI K 307.47 SI DYSSOMNIA NOS 05/20/2009 MERLYN CURRAN, ARTI K 311 MO DEPRESS NOS 05/20/2009 MERLYN CURRAN, ARTI K 300.00 AN ANXIETY UNSPEC 05/20/2009 ZULETA , ARTI K 303.90 SA ALCOHOL DEPENDENCE 05/20/2009 MERLYN CURRAN, ARTI K 307.47 SI DYSSOMNIA NOS 05/20/2009 MERLYN CURRAN, ARTI K 311 MO DEPRESS NOS 05/20/2009 DANIEL BROUSSARD APRN 300.00 AN ANXIETY UNSPEC 05/20/2009 BOBO MITCHELLKimberlyn DANIEL FARIA 303.90 SA ALCOHOL DEPENDENCE 05/20/2009 BOBO MITCHELLKimberlyn DANIEL FARIA 307.47 SI DYSSOMNIA NOS 05/20/2009 BOBO MITCHELLNDANIEL 311 MO DEPRESS NOS 05/20/2009 MORENA MONTENERGO APRN 300.00 AN ANXIETY UNSPEC 05/20/2009 MORENA MONTENEGRO APRN 303.90 SA ALCOHOL DEPENDENCE 05/20/2009 MORENA MONTENEGRO APRN 307.47 SI DYSSOMNIA NOS 05/20/2009 MORENA MONTENEGRO APRN 311 MO DEPRESS NOS 05/20/2009 BOBO MITCHELLNDANIEL 300.00 AN ANXIETY UNSPEC 05/20/2009 BOBO MITCHELLKimberlyn DANIEL FARIA 303.90 SA ALCOHOL DEPENDENCE 05/20/2009 BOBO MITCHELLKimberlyn DANIEL FARIA 307.47 SI DYSSOMNIA NOS 05/20/2009 BOBO MITCHELLNDANIEL 311 MO DEPRESS NOS 05/20/2009 ROSI PAIN COORDINATOR, DEANA M 300.00 AN ANXIETY UNSPEC 05/20/2009 ROSI PAIN COORDINATOR, DEANA M 303.90 SA ALCOHOL DEPENDENCE 05/20/2009 ROSI PAIN COORDINATOR, DEANA M 307.47 SI DYSSOMNIA NOS 05/20/2009 ROSI PAIN COORDINATOR, DEANA M 311 MO DEPRESS NOS 05/20/2009 ROSI PAIN COORDINATOR, DEANA M 300.00 AN ANXIETY UNSPEC 05/20/2009 ROSI PAIN COORDINATOR, DEANA M 303.90 SA ALCOHOL DEPENDENCE 05/20/2009 ROSI PAIN COORDINATOR, DEANA M 307.47 SI DYSSOMNIA NOS 05/20/2009 ROSI PAIN COORDINATOR, DEANA M 311 MO DEPRESS NOS 05/24/2009 MORENA MONTENEGRO APRN 298.8 P BRIEF PSYCHOTIC DISORDER 05/24/2009 TRENT STORM DO F 298.8 P BRIEF PSYCHOTIC DISORDER 05/24/2009 298.8 P BRIEF PSYCHOTIC DISORDER 05/24/2009 MORENA MONTENEGRO APRN 298.8 P BRIEF PSYCHOTIC DISORDER 05/24/2009 TRENT STORM DO F 298.8 P BRIEF PSYCHOTIC DISORDER 05/24/2009 298.8 P BRIEF PSYCHOTIC DISORDER 05/24/2009 298.8 P BRIEF PSYCHOTIC DISORDER 05/24/2009 MORENA MONTENEGRO APRN 298.8 P BRIEF PSYCHOTIC DISORDER 05/24/2009 ZULETA DO, ARTI K 298.8 P BRIEF PSYCHOTIC DISORDER 05/24/2009 ZULETA DO, ARTI K 298.8 P BRIEF PSYCHOTIC DISORDER 05/24/2009 ARUN VEGA MD 298.8 P BRIEF PSYCHOTIC DISORDER 05/24/2009 ZULETA DO, ARTI K 298.8 P BRIEF PSYCHOTIC DISORDER 05/24/2009 ZULETA DO, ARTI K 298.8 P BRIEF PSYCHOTIC DISORDER 05/24/2009 ZULETA DO, ARTI K 298.8 P BRIEF PSYCHOTIC DISORDER 05/24/2009 BROUSSARDZACARIAS PEREYRA DANIEL BIENVENIDO 298.8 P BRIEF PSYCHOTIC DISORDER 05/24/2009 MORENA MONTENEGRO APRN 298.8 P BRIEF PSYCHOTIC DISORDER 05/24/2009 BROUSSARD RODDY DANIEL BIENVENIDO 298.8 P BRIEF PSYCHOTIC DISORDER 05/24/2009 ROSI PAIN COORDINATOR, DEANA M 298.8 P BRIEF PSYCHOTIC DISORDER 05/24/2009 ROSI PAIN COORDINATOR, DEANA M 298.8 P BRIEF PSYCHOTIC DISORDER 07/13/2009 MORENA MONTENEGRO APRN 466.0 BRONCHITIS, ACUTE 07/13/2009 MORENA MONTENEGRO APRN V58.69 LONG-TERM (CURRENT) USE OF OTHER MEDICATIONS 07/13/2009 TRENT STORM DO F 466.0 BRONCHITIS, ACUTE 07/13/2009 TRENT STORM DO F V58.69 LONG-TERM (CURRENT) USE OF OTHER MEDICATIONS 07/13/2009 466.0 BRONCHITIS, ACUTE 07/13/2009 V58.69 LONG-TERM ( CURRENT) USE OF OTHER MEDICATIONS 07/13/2009 MORENA MONTENEGRO APRN 466.0 BRONCHITIS, ACUTE 07/13/2009 MORENA MONTENEGRO APRN V58.69 LONG-TERM (CURRENT) USE OF OTHER MEDICATIONS 07/13/2009 TRENT STORM DO F 466.0 BRONCHITIS, ACUTE 07/13/2009 TRETN STORM DO V58.69 LONG-TERM (CURRENT) USE OF OTHER MEDICATIONS 07/13/2009 466.0 BRONCHITIS, ACUTE 07/13/2009 V58.69 LONG-TERM ( CURRENT) USE OF OTHER MEDICATIONS 07/13/2009 466.0 BRONCHITIS, ACUTE 07/13/2009 V58.69 LONG-TERM ( CURRENT) USE OF OTHER MEDICATIONS 07/13/2009 MORENA MONTENEGRO APRN 466.0 BRONCHITIS, ACUTE 07/13/2009 MORENA MONTENEGRO APRN V58.69 LONG-TERM (CURRENT) USE OF OTHER MEDICATIONS 07/13/2009 ZULETA DO ARTI K 466.0 BRONCHITIS, ACUTE 07/13/2009 ZULETA DO ARTI K V58.69 LONG-TERM (CURRENT) USE OF OTHER MEDICATIONS 07/13/2009 ZULETA DO ARTI K 466.0 BRONCHITIS, ACUTE 07/13/2009 ZULETA DO ARTI K V58.69 LONG-TERM (CURRENT) USE OF OTHER MEDICATIONS 07/13/2009 ARUN VEGA MD 466.0 BRONCHITIS, ACUTE 07/13/2009 ARUN VEGA MD V58.69 LONG-TERM (CURRENT) USE OF OTHER MEDICATIONS 07/13/2009 ZULETA DO ARTI K 466.0 BRONCHITIS, ACUTE 07/13/2009 ZULETA DO ARTI K V58.69 LONG-TERM (CURRENT) USE OF OTHER MEDICATIONS 07/13/2009 ZULETA DO ARTI K 466.0 BRONCHITIS, ACUTE 07/13/2009 ZULETA DO ARTI K V58.69 LONG-TERM (CURRENT) USE OF OTHER MEDICATIONS 07/13/2009 ZULETA DO ARTI K 466.0 BRONCHITIS, ACUTE 07/13/2009 ZULETA DO ARTI K V58.69 LONG-TERM (CURRENT) USE OF OTHER MEDICATIONS 07/13/2009 DANIEL BROUSSARD APRN 466.0 BRONCHITIS, ACUTE 07/13/2009 DANIEL BROUSSARD APRN V58.69 LONG-TERM (CURRENT) USE OF OTHER MEDICATIONS 07/13/2009 MORENA MONTENEGRO APRN 466.0 BRONCHITIS, ACUTE 07/13/2009 MORENA MONTENEGRO APRN V58.69 LONG-TERM (CURRENT) USE OF OTHER MEDICATIONS 07/13/2009 DANIEL BROUSSARD APRN 466.0 BRONCHITIS, ACUTE 07/13/2009 DANIEL BROUSSARD APRN V58.69 LONG-TERM (CURRENT) USE OF OTHER MEDICATIONS 07/13/2009 DEANA LEWIS M 466.0 BRONCHITIS, ACUTE 07/13/2009 DEANA LEWIS V58.69 LONG-TERM (CURRENT) USE OF OTHER MEDICATIONS 07/13/2009 DEANA LEWIS M 466.0 BRONCHITIS, ACUTE 07/13/2009 DEANA LEWIS V58.69 LONG-TERM (CURRENT) USE OF OTHER MEDICATIONS 08/01/2009 MORENA MONTENEGRO APRN 309.81 AN PTSD 08/01/2009 TRENT STORM DO 309.81 AN PTSD 08/01/2009 309.81 AN PTSD 08/01/2009 MORENA MONTENEGRO APRN 309.81 AN PTSD 08/01/2009 TRENT STORM DO 309.81 AN PTSD 08/01/2009 309.81 AN PTSD 08/01/2009 309.81 AN PTSD 08/01/2009 MORENA MONTENEGRO APRN 309.81 AN PTSD 08/01/2009 EVELYN ZULETA DOA K 309.81 AN PTSD 08/01/2009 ZULETA DO ARTI K 309.81 AN PTSD 08/01/2009 ARUN VEGA MD 309.81 AN PTSD 08/01/2009 ZULETA DO ARTI K 309.81 AN PTSD 08/01/2009 ZULETA DO ARTI K 309.81 AN PTSD 08/01/2009 ZULETA DO, ARTI K 309.81 AN PTSD 08/01/2009 DANIEL BROUSSARD APRN 309.81 AN PTSD 08/01/2009 MORENA MONTENEGRO APRN 309.81 AN PTSD 08/01/2009 DANIEL BROUSSARD APRN 309.81 AN PTSD 08/01/2009 DEANA LEWIS 309.81 AN PTSD 08/01/2009 DEANA LEWIS 309.81 AN PTSD 09/17/2009 MORENA MONTENEGRO APRN 719.47 PAIN IN JOINT, ANKLE AND FOOT 09/17/2009 TRENT STORM DO 719.47 PAIN IN JOINT, ANKLE AND FOOT 09/17/2009 719.47 PAIN IN JOINT , ANKLE AND FOOT 09/17/2009 MORENA MONTENEGRO APRN 719.47 PAIN IN JOINT, ANKLE AND FOOT 09/17/2009 TRENT STORM DO 719.47 PAIN IN JOINT, ANKLE AND FOOT 09/17/2009 719.47 PAIN IN JOINT , ANKLE AND FOOT 09/17/2009 719.47 PAIN IN JOINT , ANKLE AND FOOT 09/17/2009 MORENA MONTENEGRO APRN 719.47 PAIN IN JOINT, ANKLE AND FOOT 09/17/2009 ZULETA DO ARTI K 719.47 PAIN IN JOINT, ANKLE AND FOOT 09/17/2009 ZULETA DO, ARTI K 719.47 PAIN IN JOINT, ANKLE AND FOOT 09/17/2009 ARUN VEGA MD 719.47 PAIN IN JOINT, ANKLE AND FOOT 09/17/2009 ZULETA DO, ARTI K 719.47 PAIN IN JOINT, ANKLE AND FOOT 09/17/2009 ZULETA DO, ARTI K 719.47 PAIN IN JOINT, ANKLE AND FOOT 09/17/2009 ZULETA DO, ARTI K 719.47 PAIN IN JOINT, ANKLE AND FOOT 09/17/2009 DANIEL BROUSSARD APRN 719.47 PAIN IN JOINT, ANKLE AND FOOT 09/17/2009 MORENA MONTENEGRO APRN 719.47 PAIN IN JOINT, ANKLE AND FOOT 09/17/2009 DANIEL BROUSSARD APRN 719.47 PAIN IN JOINT, ANKLE AND FOOT 09/17/2009 DEANA LEWIS 719.47 PAIN IN JOINT, ANKLE AND FOOT 09/17/2009 DEANA LEWIS 719.47 PAIN IN JOINT, ANKLE AND FOOT 10/20/2009 MORENA MONTENEGRO APRN 296.80 MO BIPOLAR NOS 10/20/2009 TRENT STORM DO 296.80 MO BIPOLAR NOS 10/20/2009 296.80 MO BIPOLAR NOS 10/20/2009 MORENA MONTENEGRO APRN 296.80 MO BIPOLAR NOS 10/20/2009 TRENT STORM DO 296.80 MO BIPOLAR NOS 10/20/2009 296.80 MO BIPOLAR NOS 10/20/2009 296.80 MO BIPOLAR NOS 10/20/2009 MORENA MONTENEGRO APRN 296.80 MO BIPOLAR NOS 10/20/2009 ZULETA DO, ARTI K 296.80 MO BIPOLAR NOS 10/20/2009 ZULETA DO, ARTI K 296.80 MO BIPOLAR NOS 10/20/2009 ARUN VEGA MD 296.80 MO BIPOLAR NOS 10/20/2009 ZULETA DO, ARTI K 296.80 MO BIPOLAR NOS 10/20/2009 ZULETA DO, ARTI K 296.80 MO BIPOLAR NOS 10/20/2009 ZULETA DO, ARTI K 296.80 MO BIPOLAR NOS 10/20/2009 BOBO PEREYRA, DANIEL FARIA 296.80 MO BIPOLAR NOS 10/20/2009 MORENA MONTENEGRO APRN 296.80 MO BIPOLAR NOS 10/20/2009 BROUSSARD REDYE HAND, DANIEL FARIA 296.80 MO BIPOLAR NOS 10/20/2009 ROSI PAIN COORDINATOR, DEANA M 296.80 MO BIPOLAR NOS 10/20/2009 ROSI PAIN COORDINATOR, DEANA M 296.80 MO BIPOLAR NOS 03/07/2010 MORENA MONTENEGRO APRN 401.1 HYPERTENSION, BENIGN ESSENTIAL 03/07/2010 MORENA MONTENEGRO APRN NODX NO DIAGNOSIS 03/07/2010 WERDER DO, TRENT F 401.1 HYPERTENSION, BENIGN ESSENTIAL 03/07/2010 WERDER DO, TRENT F NODX NO DIAGNOSIS 03/07/2010 401.1 HYPERTENSION, BENIGN ESSENTIAL 03/07/2010 NODX NO DIAGNOSIS 03/07/2010 MORENA MONTENEGRO APRN 401.1 HYPERTENSION, BENIGN ESSENTIAL 03/07/2010 MORENA MONTENEGRO APRN NODX NO DIAGNOSIS 03/07/2010 WERDER DO, TRENT F 401.1 HYPERTENSION, BENIGN ESSENTIAL 03/07/2010 WERDER DO, TRENT F NODX NO DIAGNOSIS 03/07/2010 401.1 HYPERTENSION, BENIGN ESSENTIAL 03/07/2010 NODX NO DIAGNOSIS 03/07/2010 401.1 HYPERTENSION, BENIGN ESSENTIAL 03/07/2010 NODX NO DIAGNOSIS 03/07/2010 MORENA MONTENEGRO APRN 401.1 HYPERTENSION, BENIGN ESSENTIAL 03/07/2010 MORENA MONTENEGRO APRN NODX NO DIAGNOSIS 03/07/2010 ZULETA DO, ARTI K 401.1 HYPERTENSION, BENIGN ESSENTIAL 03/07/2010 ZULETA DO, ARTI K NODX NO DIAGNOSIS 03/07/2010 ZULETA DO, ARTI K 401.1 HYPERTENSION, BENIGN ESSENTIAL 03/07/2010 ZULETA DO, ARTI K NODX NO DIAGNOSIS 03/07/2010 ARUN VEGA MD 401.1 HYPERTENSION, BENIGN ESSENTIAL 03/07/2010 ARUN VEGA MD NODX NO DIAGNOSIS 03/07/2010 ZULETA DO, ARTI K 401.1 HYPERTENSION, BENIGN ESSENTIAL 03/07/2010 ZULETA DO, ARTI K NODX NO DIAGNOSIS 03/07/2010 ZULETA DO, ARTI K 401.1 HYPERTENSION, BENIGN ESSENTIAL 03/07/2010 ZULETA DO, ARTI K NODX NO DIAGNOSIS 03/07/2010 ZULETA DO, ARTI K 401.1 HYPERTENSION, BENIGN ESSENTIAL 03/07/2010 ZULETA DO, ARTI K NODX NO DIAGNOSIS 03/07/2010 BROUSSARD REDYE HAND, DANIEL FARIA 401.1 HYPERTENSION, BENIGN ESSENTIAL 03/07/2010 BROUSSARD REDYE HAND, DANIEL FARIA NODX NO DIAGNOSIS 03/07/2010 MONI REDYE HAND, MORENA T 401.1 HYPERTENSION, BENIGN ESSENTIAL 03/07/2010 MONI REDYE HAND, MORENA T NODX NO DIAGNOSIS 03/07/2010 BROUSSARD REDYE HAND, DANIEL FARIA 401.1 HYPERTENSION, BENIGN ESSENTIAL 03/07/2010 BROUSSARD REDYE HAND, DANIEL FARIA NODX NO DIAGNOSIS 03/07/2010 ROSI PAIN COORDINATOR, DEANA M 401.1 HYPERTENSION, BENIGN ESSENTIAL 03/07/2010 ROSI PAIN COORDINATOR, DEANA M NODX NO DIAGNOSIS 03/07/2010 ROSI PAIN COORDINATOR, DEANA M 401.1 HYPERTENSION, BENIGN ESSENTIAL 03/07/2010 ROSI PAIN COORDINATOR, DEANA M NODX NO DIAGNOSIS 03/14/2010 MORENA MONTENEGRO APRN 486 PNEUMONIA UNSPECIFIED 03/14/2010 WERDER DO, TRENT F 486 PNEUMONIA UNSPECIFIED 03/14/2010 486 PNEUMONIA UNSPECIFIED 03/14/2010 MORENA MONTENEGRO APRN 486 PNEUMONIA UNSPECIFIED 03/14/2010 WERDER DO, TRENT F 486 PNEUMONIA UNSPECIFIED 03/14/2010 486 PNEUMONIA UNSPECIFIED 03/14/2010 486 PNEUMONIA UNSPECIFIED 03/14/2010 MORENA MONTENEGRO APRN 486 PNEUMONIA UNSPECIFIED 03/14/2010 ZULETA DO, ARTI K 486 PNEUMONIA UNSPECIFIED 03/14/2010 ZULETA DO, ARTI K 486 PNEUMONIA UNSPECIFIED 03/14/2010 ARUN VEGA MD 486 PNEUMONIA UNSPECIFIED 03/14/2010 ZULETA DO, ARTI K 486 PNEUMONIA UNSPECIFIED 03/14/2010 ZULETA DO, ARTI K 486 PNEUMONIA UNSPECIFIED 03/14/2010 ZULETA DO, ARTI K 486 PNEUMONIA UNSPECIFIED 03/14/2010 BROUSSARD REDYE HAND, DANIEL FARIA 486 PNEUMONIA UNSPECIFIED 03/14/2010 MORENA MONTENEGRO APRN 486 PNEUMONIA UNSPECIFIED 03/14/2010 BROUSSARD REDYE HAND, DANIEL FARIA 486 PNEUMONIA UNSPECIFIED 03/14/2010 ROSI KESSLER, DEANA M 486 PNEUMONIA UNSPECIFIED 03/14/2010 DEANA LEWIS 486 PNEUMONIA UNSPECIFIED 04/24/2010 MORENA MONTENEGRO APRN 272.0 HYPERCHOLESTEROLEMIA PURE 04/24/2010 WERDER DO, TRENT F 272.0 HYPERCHOLESTEROLEMIA PURE 04/24/2010 272.0 HYPERCHOLESTEROLEMIA PURE 04/24/2010 MORENA MONTENEGRO APRN T 272.0 HYPERCHOLESTEROLEMIA PURE 04/24/2010 WERDER DO, TRENT F 272.0 HYPERCHOLESTEROLEMIA PURE 04/24/2010 272.0 HYPERCHOLESTEROLEMIA PURE 04/24/2010 272.0 HYPERCHOLESTEROLEMIA PURE 04/24/2010 MORENA MONTENEGRO APRN T 272.0 HYPERCHOLESTEROLEMIA PURE 04/24/2010 ZULETA DO, ARTI K 272.0 HYPERCHOLESTEROLEMIA PURE 04/24/2010 ZULETA DO, ARTI K 272.0 HYPERCHOLESTEROLEMIA PURE 04/24/2010 ARUN VEGA MD 272.0 HYPERCHOLESTEROLEMIA PURE 04/24/2010 ZULETA DO, ARTI K 272.0 HYPERCHOLESTEROLEMIA PURE 04/24/2010 ZULETA DO, ARTI K 272.0 HYPERCHOLESTEROLEMIA PURE 04/24/2010 ZULETA DO, ARTI K 272.0 HYPERCHOLESTEROLEMIA PURE 04/24/2010 BROUSSARD RODDYDANIELH 272.0 HYPERCHOLESTEROLEMIA PURE 04/24/2010 MORENA MONTENEGRO APRN T 272.0 HYPERCHOLESTEROLEMIA PURE 04/24/2010 BROUSSARDZACARIAS MITCHELLNDANIELH 272.0 HYPERCHOLESTEROLEMIA PURE 04/24/2010 DEANA ELWIS 272.0 HYPERCHOLESTEROLEMIA PURE 04/24/2010 DEANA LEWIS 272.0 HYPERCHOLESTEROLEMIA PURE 10/31/2010 MORENA MONTENEGRO APRN 564.00 UNSPECIFIED CONSTIPATION 10/31/2010 EMETERIO CURRAN TRENT F 564.00 UNSPECIFIED CONSTIPATION 10/31/2010 564.00 Unspecified Constipation 10/31/2010 MORENA MONTENEGRO APRN 564.00 Unspecified Constipation 10/31/2010 WERDER DO, TRENT F 564.00 Unspecified Constipation 10/31/2010 564.00 Unspecified Constipation 10/31/2010 564.00 Unspecified Constipation 10/31/2010 MORENA MONTENEGRO APRN 564.00 UNSPECIFIED CONSTIPATION 10/31/2010 ZULETA DO, ARTI K 564.00 Unspecified Constipation 10/31/2010 ZULETA DO, ARTI K 564.00 Unspecified Constipation 10/31/2010 ARUN VEGA MD 564.00 Unspecified Constipation 10/31/2010 ZULETA DO, ARTI K 564.00 Unspecified Constipation 10/31/2010 ZULETA DO, ARTI K 564.00 Unspecified Constipation 10/31/2010 ZULETA DO, ARTI K 564.00 Unspecified Constipation 10/31/2010 BOBO PEREYRA, DANIEL RADERH 564.00 Unspecified Constipation 10/31/2010 MORENA MONTENEGRO APRN 564.00 Unspecified Constipation 10/31/2010 BOBO PEREYRA, DANIEL BIENVENIDO 564.00 Unspecified Constipation 10/31/2010 DEANA LEWIS M 564.00 Unspecified Constipation 10/31/2010 ROSI PAIN COORDINATOR, DEANA M 564.00 Unspecified Constipation 05/09/2011 MORENA MONTENEGRO APRN 079.99 VIRAL SYNDROME 05/09/2011 TRENT STORM DO 079.99 VIRAL SYNDROME 05/09/2011 079.99 VIRAL SYNDROME 05/09/2011 MORENA MONTENEGRO APRN 079.99 VIRAL SYNDROME 05/09/2011 TRENT STORM DO 079.99 VIRAL SYNDROME 05/09/2011 079.99 VIRAL SYNDROME 05/09/2011 079.99 VIRAL SYNDROME 05/09/2011 MORENA MONTENEGRO APRN 079.99 VIRAL SYNDROME 05/09/2011 ZULETA DO, ARTI K 079.99 VIRAL SYNDROME 05/09/2011 ZULETA DO, ARTI K 079.99 VIRAL SYNDROME 05/09/2011 ARUN VEGA MD 079.99 VIRAL SYNDROME 05/09/2011 ZULETA DO, ARTI K 079.99 VIRAL SYNDROME 05/09/2011 ZULETA DO, ARTI K 079.99 VIRAL SYNDROME 05/09/2011 ZULETA DO, ARTI K 079.99 VIRAL SYNDROME 05/09/2011 BOBO PEREYRA DANIEL BIENVENIDO 079.99 VIRAL SYNDROME 05/09/2011 MORENA MONTENEGRO APRN 079.99 VIRAL SYNDROME 05/09/2011 DANIEL BROUSSARD APRN 079.99 VIRAL SYNDROME 05/09/2011 ROSI PAIN COORDINATORDEANA M 079.99 VIRAL SYNDROME 05/09/2011 ROSI PAIN COORDINATORDEANA M 079.99 VIRAL SYNDROME 05/12/2011 MORENA MONTENEGRO APRN 465.9 UPPER RESPIRATORY INFECTION 05/12/2011 TRENT STORM DO 465.9 UPPER RESPIRATORY INFECTION 05/12/2011 465.9 UPPER RESPIRATORY INFECTION 05/12/2011 MORENA MONTENEGRO APRN 465.9 UPPER RESPIRATORY INFECTION 05/12/2011 TRENT STORM DO 465.9 UPPER RESPIRATORY INFECTION 05/12/2011 465.9 UPPER RESPIRATORY INFECTION 05/12/2011 465.9 UPPER RESPIRATORY INFECTION 05/12/2011 MORENA MONTENEGRO APRN 465.9 UPPER RESPIRATORY INFECTION 05/12/2011 ZULETA DO, ARTI K 465.9 UPPER RESPIRATORY INFECTION 05/12/2011 ZULETA DO, ARTI K 465.9 UPPER RESPIRATORY INFECTION 05/12/2011 ARUN VEGA MD 465.9 UPPER RESPIRATORY INFECTION 05/12/2011 ZULETA DO, ARTI K 465.9 UPPER RESPIRATORY INFECTION 05/12/2011 ZULETA DO, ARTI K 465.9 UPPER RESPIRATORY INFECTION 05/12/2011 ZULETA DO, ARTI K 465.9 UPPER RESPIRATORY INFECTION 05/12/2011 BOBO PEREYRA DANIEL FARIA 465.9 UPPER RESPIRATORY INFECTION 05/12/2011 MORENA MONTENEGRO APRN 465.9 UPPER RESPIRATORY INFECTION 05/12/2011 BOBO PEREYRA DANIEL FARIA 465.9 UPPER RESPIRATORY INFECTION 05/12/2011 ROSI PAIN COORDINATOR, DEANA M 465.9 UPPER RESPIRATORY INFECTION 05/12/2011 ROSI PAIN COORDINATOR, DEANA M 465.9 UPPER RESPIRATORY INFECTION 05/30/2011 MORENA MONTENEGRO APRN 787.02 NAUSEA ALONE 05/30/2011 TRENT STORM DO 787.02 NAUSEA ALONE 05/30/2011 787.02 NAUSEA ALONE 05/30/2011 MORENA MONTENEGRO APRN 787.02 NAUSEA ALONE 05/30/2011 TRENT STORM DO 787.02 NAUSEA ALONE 05/30/2011 787.02 NAUSEA ALONE 05/30/2011 787.02 NAUSEA ALONE 05/30/2011 MORENA MONTENEGRO APRN 787.02 NAUSEA ALONE 05/30/2011 ZULETA DO, ARTI K 787.02 NAUSEA ALONE 05/30/2011 ZULETA DO, ARTI K 787.02 NAUSEA ALONE 05/30/2011 ARUN VEGA MD 787.02 NAUSEA ALONE 05/30/2011 ZULETA DO, ARTI K 787.02 NAUSEA ALONE 05/30/2011 ZULETA DO, ARTI K 787.02 NAUSEA ALONE 05/30/2011 ZULETA DO, ARTI K 787.02 NAUSEA ALONE 05/30/2011 BOBO PEREYRA DANIEL FARIA 787.02 NAUSEA ALONE 05/30/2011 MORENA MONTENEGRO APRN 787.02 NAUSEA ALONE 05/30/2011 BROUSSARDZACARIAS PEREYRA DANIEL FARIA 787.02 NAUSEA ALONE 05/30/2011 DEANA LEWIS M 787.02 NAUSEA ALONE 05/30/2011 DEANA LEWIS M 787.02 NAUSEA ALONE 06/06/2011 MORENA MONTENEGRO APRN 216.9 MOLE/NEVUS - SITE UNSPECIFIED 06/06/2011 WERGILLIAN DO TRENT F 216.9 MOLE/NEVUS - SITE UNSPECIFIED 06/06/2011 216.9 MOLE/NEVUS - SITE UNSPECIFIED 06/06/2011 MORENA MONTENEGRO APRN 216.9 Mole/nevus - Site Unspecified 06/06/2011 EMETERIO DOMARIA ISABELEN F 216.9 Mole/nevus - Site Unspecified 06/06/2011 216.9 Mole/nevus - Site Unspecified 06/06/2011 216.9 Mole/nevus - Site Unspecified 06/06/2011 MORENA MONTENEGRO APRN 216.9 MOLE/NEVUS - SITE UNSPECIFIED 06/06/2011 ZULETA DO, ARTI K 216.9 Mole/nevus - Site Unspecified 06/06/2011 ZULETA DO, ARTI K 216.9 Mole/nevus - Site Unspecified 06/06/2011 ARUN VEGA MD 216.9 Mole/nevus - Site Unspecified 06/06/2011 ZULETA DO, ARTI K 216.9 Mole/nevus - Site Unspecified 06/06/2011 ZULETA DO, ARTI K 216.9 Mole/nevus - Site Unspecified 06/06/2011 ZULETA DO, ARTI K 216.9 Mole/nevus - Site Unspecified 06/06/2011 BOBO PEREYRA DANIEL BIENVENIDO 216.9 Mole/nevus - Site Unspecified 06/06/2011 MORENA MONTENEGRO APRN 216.9 Mole/nevus - Site Unspecified 06/06/2011 BOBO PEREYRA DANIEL BIENVENIDO 216.9 Mole/nevus - Site Unspecified 06/06/2011 DEANA LEWIS M 216.9 Mole/nevus - Site Unspecified 06/06/2011 DEANA LEWIS M 216.9 Mole/nevus - Site Unspecified 06/19/2011 MORENA MONTENEGRO APRN 787.02 Nausea Alone 06/19/2011 TRENT STORM DO F 787.02 Nausea Alone 06/19/2011 787.02 Nausea Alone 06/19/2011 MORENA MONTENEGRO APRN 787.02 Nausea Alone 06/19/2011 TRENT STORM DO F 787.02 Nausea Alone 06/19/2011 787.02 Nausea Alone 06/19/2011 787.02 Nausea Alone 06/19/2011 MORENA MONTENEGRO APRN 787.02 Nausea Alone 06/19/2011 ZULETA DO, ARTI K 787.02 Nausea Alone 06/19/2011 ZULETA DO, ARTI K 787.02 Nausea Alone 06/19/2011 ARUN VEGA MD 787.02 Nausea Alone 06/19/2011 ZULETA DO, ARTI K 787.02 Nausea Alone 06/19/2011 ZULETA DO, ARTI K 787.02 Nausea Alone 06/19/2011 ZULETA DO, ARTI K 787.02 Nausea Alone 06/19/2011 DANIEL BROUSSARD APRN 787.02 Nausea Alone 06/19/2011 MORENA MONTENEGRO APRN 787.02 Nausea Alone 06/19/2011 DANIEL BROUSSARD APRN 787.02 Nausea Alone 06/19/2011 DEANA LEWIS 787.02 Nausea Alone 06/19/2011 DEANA LEWIS 787.02 Nausea Alone 07/06/2011 MORENA MONTENEGRO APRN 008.8 GASTROENTERITIS, VIRAL 07/06/2011 TRENT STORM DO 008.8 GASTROENTERITIS, VIRAL 07/06/2011 008.8 GASTROENTERITIS, VIRAL 07/06/2011 MORENA MONTENEGRO APRN 008.8 GASTROENTERITIS, VIRAL 07/06/2011 TRENT STORM DO 008.8 GASTROENTERITIS, VIRAL 07/06/2011 008.8 GASTROENTERITIS, VIRAL 07/06/2011 008.8 GASTROENTERITIS, VIRAL 07/06/2011 MORENA MONTENEGRO APRN 008.8 GASTROENTERITIS, VIRAL 07/06/2011 ZULETA DO, ARTI K 008.8 GASTROENTERITIS, VIRAL 07/06/2011 ZULETA DO, ARTI K 008.8 GASTROENTERITIS, VIRAL 07/06/2011 ARUN VEGA MD 008.8 GASTROENTERITIS, VIRAL 07/06/2011 ZULETA DO, ARTI K 008.8 GASTROENTERITIS, VIRAL 07/06/2011 ZULETA DO, ARTI K 008.8 GASTROENTERITIS, VIRAL 07/06/2011 ZULETA DO, ARTI K 008.8 GASTROENTERITIS, VIRAL 07/06/2011 DANIEL BROUSSARD APRN 008.8 GASTROENTERITIS, VIRAL 07/06/2011 MORENA MONTENEGRO APRN 008.8 GASTROENTERITIS, VIRAL 07/06/2011 DANIEL BROUSSARD APRN 008.8 GASTROENTERITIS, VIRAL 07/06/2011 DEANA LEWIS 008.8 GASTROENTERITIS, VIRAL 07/06/2011 DEANA LEWIS 008.8 GASTROENTERITIS, VIRAL 07/25/2011 MORENA MONTENEGRO APRN 535.50 GASTRITIS UNSPEC 07/25/2011 TRENT STORM DO 535.50 GASTRITIS UNSPEC 07/25/2011 535.50 Gastritis Unspec 07/25/2011 MORENA MONTENEGRO APRN 535.50 Gastritis Unspec 07/25/2011 TRENT STORM DO 535.50 Gastritis Unspec 07/25/2011 535.50 Gastritis Unspec 07/25/2011 535.50 Gastritis Unspec 07/25/2011 MORENA MONTENEGRO APRN 535.50 GASTRITIS UNSPEC 07/25/2011 ZULETA DO, ARTI K 535.50 Gastritis Unspec 07/25/2011 ZULETA DO, ARTI K 535.50 Gastritis Unspec 07/25/2011 ARUN VEGA MD 535.50 Gastritis Unspec 07/25/2011 ZULETA DO, ARTI K 535.50 Gastritis Unspec 07/25/2011 ZULETA DO, ARTI K 535.50 Gastritis Unspec 07/25/2011 ZULETA DO, ARTI K 535.50 Gastritis Unspec 07/25/2011 BOBO PEREYRA DANIEL BIENVENIDO 535.50 Gastritis Unspec 07/25/2011 MORENA MONTENEGRO APRN 535.50 Gastritis Unspec 07/25/2011 DANIEL BROUSSARD APRN 535.50 Gastritis Unspec 07/25/2011 DEANA LEWIS 535.50 Gastritis Unspec 07/25/2011 DEANA LEWIS 535.50 Gastritis Unspec 07/30/2011 MORENA MONTENEGRO APRN 706.2 SEBACEOUS CYST 07/30/2011 TERNT STORM DO 706.2 SEBACEOUS CYST 07/30/2011 706.2 SEBACEOUS CYST 07/30/2011 MORENA MONTENEGRO APRN 706.2 SEBACEOUS CYST 07/30/2011 TRENT STORM DO 706.2 SEBACEOUS CYST 07/30/2011 706.2 SEBACEOUS CYST 07/30/2011 706.2 SEBACEOUS CYST 07/30/2011 MORENA MONTENEGRO APRN 706.2 SEBACEOUS CYST 07/30/2011 ZULETA DO, ARTI K 706.2 SEBACEOUS CYST 07/30/2011 ZULETA DO, ARTI K 706.2 SEBACEOUS CYST 07/30/2011 ARUN VEGA MD 706.2 SEBACEOUS CYST 07/30/2011 ZULETA DO, ARTI K 706.2 SEBACEOUS CYST 07/30/2011 ZULETA DO, ARTI K 706.2 SEBACEOUS CYST 07/30/2011 ZULETA DO, ARTI K 706.2 SEBACEOUS CYST 07/30/2011 BOBO PEREYRA, DANIEL BIENVENIDO 706.2 SEBACEOUS CYST 07/30/2011 MORENA MONTENEGRO APRN 706.2 SEBACEOUS CYST 07/30/2011 BOBO PEREYRA, DANIEL RADERH 706.2 SEBACEOUS CYST 07/30/2011 DEANA LEWIS 706.2 SEBACEOUS CYST 07/30/2011 DEANA LEWIS 706.2 SEBACEOUS CYST 08/06/2011 MORENA MONTENEGRO APRN V58.32 ENCOUNTER FOR REMOVAL OF SUTURES 08/06/2011 TRENT STORM DO V58.32 ENCOUNTER FOR REMOVAL OF SUTURES 08/06/2011 V58.32 ENCOUNTER FOR REMOVAL OF SUTURES 08/06/2011 MORENA MONTENEGRO APRN V58.32 ENCOUNTER FOR REMOVAL OF SUTURES 08/06/2011 TRENT STORM DO V58.32 ENCOUNTER FOR REMOVAL OF SUTURES 08/06/2011 V58.32 ENCOUNTER FOR REMOVAL OF SUTURES 08/06/2011 V58.32 ENCOUNTER FOR REMOVAL OF SUTURES 08/06/2011 MORENA MONTENEGRO APRN V58.32 ENCOUNTER FOR REMOVAL OF SUTURES 08/06/2011 EVELYN ZULETA DOA K V58.32 ENCOUNTER FOR REMOVAL OF SUTURES 08/06/2011 ZULETA DO ARTI K V58.32 ENCOUNTER FOR REMOVAL OF SUTURES 08/06/2011 ARUN VEGA MD V58.32 ENCOUNTER FOR REMOVAL OF SUTURES 08/06/2011 ZULETA EVELYN CURRANA K V58.32 ENCOUNTER FOR REMOVAL OF SUTURES 08/06/2011 ZULETA EVELYN CURRANA K V58.32 ENCOUNTER FOR REMOVAL OF SUTURES 08/06/2011 MERLYN CURRAN ARTI K V58.32 ENCOUNTER FOR REMOVAL OF SUTURES 08/06/2011 BOBO PEREYRA DANIEL BIENVENIDO V58.32 ENCOUNTER FOR REMOVAL OF SUTURES 08/06/2011 MORENA MONTENEGRO APRN V58.32 ENCOUNTER FOR REMOVAL OF SUTURES 08/06/2011 BOBO PEREYRA DANIEL BIENVENIDO V58.32 ENCOUNTER FOR REMOVAL OF SUTURES 08/06/2011 DEANA LEWIS V58.32 ENCOUNTER FOR REMOVAL OF SUTURES 08/06/2011 DEANA LEWIS V58.32 ENCOUNTER FOR REMOVAL OF SUTURES 08/20/2011 MORENA MONTENEGRO APRN 787.01 NAUSEA WITH VOMITING 08/20/2011 TRENT STORM DO 787.01 NAUSEA WITH VOMITING 08/20/2011 787.01 Nausea With Vomiting 08/20/2011 MORENA MONTENEGRO APRN 787.01 Nausea With Vomiting 08/20/2011 TRENT STORM DO 787.01 Nausea With Vomiting 08/20/2011 787.01 Nausea With Vomiting 08/20/2011 787.01 Nausea With Vomiting 08/20/2011 MORENA MONTENEGRO APRN 787.01 NAUSEA WITH VOMITING 08/20/2011 MERLYN DOEVELYNA K 787.01 Nausea With Vomiting 08/20/2011 ZULETA DO, ARTI K 787.01 Nausea With Vomiting 08/20/2011 ARUN VEGA MD 787.01 Nausea With Vomiting 08/20/2011 ZULETA DO, ARTI K 787.01 Nausea With Vomiting 08/20/2011 ZULETA DO ARTI K 787.01 Nausea With Vomiting 08/20/2011 ZULETA DO, ARTI K 787.01 Nausea With Vomiting 08/20/2011 DANIEL BROUSSARD APRN 787.01 Nausea With Vomiting 08/20/2011 MORENA MONTENEGRO APRN 787.01 Nausea With Vomiting 08/20/2011 DANIEL BROUSSARD APRN 787.01 Nausea With Vomiting 08/20/2011 DEANA LEWIS 787.01 Nausea With Vomiting 08/20/2011 DEANA LEWIS 787.01 Nausea With Vomiting 08/28/2011 MORENA MONTENEGRO APRN 380.4 IMPACTED CERUMEN 08/28/2011 WERDER DO, TRENT F 380.4 IMPACTED CERUMEN 08/28/2011 380.4 Impacted Cerumen 08/28/2011 MORENA MONTENEGRO APRN 380.4 Impacted Cerumen 08/28/2011 WERDER DOTRENT F 380.4 Impacted Cerumen 08/28/2011 380.4 Impacted Cerumen 08/28/2011 380.4 Impacted Cerumen 08/28/2011 MORENA MONTENEGRO APRN 380.4 IMPACTED CERUMEN 08/28/2011 ZULETA DO, ARTI K 380.4 Impacted Cerumen 08/28/2011 ZULETA DO, ARTI K 380.4 Impacted Cerumen 08/28/2011 ARUN VEGA MD 380.4 Impacted Cerumen 08/28/2011 ZULETA DO, ARTI K 380.4 Impacted Cerumen 08/28/2011 ZULETA DO, ARTI K 380.4 Impacted Cerumen 08/28/2011 ZULETA DO, ARTI K 380.4 Impacted Cerumen 08/28/2011 BOBO PEREYRA DANIEL BIENVENIDO 380.4 Impacted Cerumen 08/28/2011 MORENA MONTENEGRO APRN 380.4 Impacted Cerumen 08/28/2011 BROUSSARDZACARIAS PEREYRA DANIEL BIENVENIDO 380.4 Impacted Cerumen 08/28/2011 ROSI PAIN COORDINATOR, DEANA M 380.4 Impacted Cerumen 08/28/2011 ROSI KESSLER, DEANA M 380.4 Impacted Cerumen 04/21/2012 MORENA MONTENEGRO APRN 486 PNEUMONIA UNSPECIFIED 04/21/2012 TRENT STORM DO F 486 PNEUMONIA UNSPECIFIED 04/21/2012 486 Pneumonia Unspecified 04/21/2012 MORENA MONTENEGRO APRN 486 Pneumonia Unspecified 04/21/2012 TRENT STORM DO F 486 Pneumonia Unspecified 04/21/2012 486 Pneumonia Unspecified 04/21/2012 486 Pneumonia Unspecified 04/21/2012 MORENA MONTENEGRO APRN 486 PNEUMONIA UNSPECIFIED 04/21/2012 ZULETA DO, ARTI K 486 Pneumonia Unspecified 04/21/2012 ZULETA DO, ARTI K 486 Pneumonia Unspecified 04/21/2012 ARUN VEGA MD 486 Pneumonia Unspecified 04/21/2012 ZULETA DO, ARTI K 486 Pneumonia Unspecified 04/21/2012 ZULETA DO, ARTI K 486 Pneumonia Unspecified 04/21/2012 ZULETA DO, ARTI K 486 Pneumonia Unspecified 04/21/2012 BOBO PEREYRADANIEL 486 Pneumonia Unspecified 04/21/2012 MORENA MONTENEGRO APRN 486 Pneumonia Unspecified 04/21/2012 BROUSSARD RODDY, DANIEL FARIA 486 Pneumonia Unspecified 04/21/2012 DEANA LEWIS 486 Pneumonia Unspecified 04/21/2012 DEANA LEWIS 486 Pneumonia Unspecified 05/14/2012 MORENA MONTENEGRO APRN V04.81 FLU DX (3 YRS AND ABOVE, IM) 05/14/2012 TRENT STORM DO V04.81 FLU DX (3 YRS AND ABOVE, IM) 05/14/2012 V04.81 Flu Dx (3 Yrs And Above, Im) 05/14/2012 MORENA MONTENEGRO APRN V04.81 Flu Dx (3 Yrs And Above, Im) 05/14/2012 TRENT STORM DO V04.81 Flu Dx (3 Yrs And Above, Im) 05/14/2012 V04.81 Flu Dx (3 Yrs And Above, Im) 05/14/2012 V04.81 Flu Dx (3 Yrs And Above, Im) 05/14/2012 ARTI ZULETA DO V04.81 Flu Dx (3 Yrs And Above, Im) 05/14/2012 ARTI ZULETA DO V04.81 Flu Dx (3 Yrs And Above, Im) 05/14/2012 ARUN VEGA MD V04.81 Flu Dx (3 Yrs And Above, Im) 05/14/2012 ARTI ZULETA DO K V04.81 Flu Dx (3 Yrs And Above, Im) 05/14/2012 ARTI ZULETA DO V04.81 Flu Dx (3 Yrs And Above, Im) 05/14/2012 ARTI ZULETA DO K V04.81 Flu Dx (3 Yrs And Above, Im) 05/14/2012 BOBO PEREYRA DANIEL BIENVENIDO V04.81 Flu Dx (3 Yrs And Above, Im) 05/14/2012 MORENA MONTENEGRO APRN V04.81 Flu Dx (3 Yrs And Above, Im) 05/14/2012 BOBO PEREYRA DANIEL BIENVENIDO V04.81 Flu Dx (3 Yrs And Above, Im) 05/14/2012 DEANA LEWIS V04.81 Flu Dx (3 Yrs And Above, Im) 05/14/2012 OLIVA LEWISISTIN M V04.81 Flu Dx (3 Yrs And Above, Im) 08/13/2012 305.1 TOBACCO ABUSE 08/13/2012 466.0 BRONCHITIS, ACUTE 08/13/2012 V65.42 COUNSELING - SMOKING CESSATION 08/13/2012 MORENA MONTENEGRO APRN T 305.1 TOBACCO ABUSE 08/13/2012 MORENA MONTENEGRO APRN T 466.0 Bronchitis, Acute 08/13/2012 MONI PEREYRA MORENA T V65.42 COUNSELING - SMOKING CESSATION 08/13/2012 WERDER DO, TRENT F 305.1 TOBACCO ABUSE 08/13/2012 WERDER DO, TRENT F 466.0 Bronchitis, Acute 08/13/2012 WERDER DO, TRENT F V65.42 COUNSELING - SMOKING CESSATION 08/13/2012 305.1 TOBACCO ABUSE 08/13/2012 466.0 Bronchitis, Acute 08/13/2012 V65.42 COUNSELING - SMOKING CESSATION 08/13/2012 305.1 TOBACCO ABUSE 08/13/2012 466.0 Bronchitis, Acute 08/13/2012 V65.42 COUNSELING - SMOKING CESSATION 08/13/2012 ZULETA DO, ARTI K 305.1 TOBACCO ABUSE 08/13/2012 ZULETA DO, ARTI K 466.0 Bronchitis, Acute 08/13/2012 ZULETA DO, ARTI K V65.42 COUNSELING - SMOKING CESSATION 08/13/2012 ZULETA DO, ARTI K 305.1 TOBACCO ABUSE 08/13/2012 ZULETA DO, ARTI K 466.0 Bronchitis, Acute 08/13/2012 ZULETA DO, ARTI K V65.42 COUNSELING - SMOKING CESSATION 08/13/2012 ARUN VEGA MD 305.1 TOBACCO ABUSE 08/13/2012 ARUN VEGA MD 466.0 Bronchitis, Acute 08/13/2012 ARUN VEGA MD V65.42 COUNSELING - SMOKING CESSATION 08/13/2012 ZULETA DO, ARTI K 305.1 TOBACCO ABUSE 08/13/2012 ZULETA DO, ARTI K 466.0 Bronchitis, Acute 08/13/2012 ZULETA DO, ARTI K V65.42 COUNSELING - SMOKING CESSATION 08/13/2012 ZULETA DO, ARTI K 305.1 TOBACCO ABUSE 08/13/2012 ZULETA DO, ARTI K 466.0 Bronchitis, Acute 08/13/2012 ZULETA DO, ARTI K V65.42 COUNSELING - SMOKING CESSATION 08/13/2012 ZULETA DO, ARTI K 305.1 TOBACCO ABUSE 08/13/2012 ZULETA DO, ARTI K 466.0 Bronchitis, Acute 08/13/2012 ZULETA DO, ARTI K V65.42 COUNSELING - SMOKING CESSATION 08/13/2012 BROUSSARD RODDY DANIEL FARIA 305.1 TOBACCO ABUSE 08/13/2012 BOBO MITCHELLKimberlyn DANIEL FARIA 466.0 Bronchitis, Acute 08/13/2012 BOBO MITCHELLKimberlyn DANIEL FARIA V65.42 COUNSELING - SMOKING CESSATION 08/13/2012 MORENA MONTENEGRO APRN 305.1 TOBACCO ABUSE 08/13/2012 MORENA MONTENEGRO APRN T 466.0 Bronchitis, Acute 08/13/2012 MORENA MONTENEGRO APRN V65.42 COUNSELING - SMOKING CESSATION 08/13/2012 BROUSSARD RODDY DANIEL FARIA 305.1 TOBACCO ABUSE 08/13/2012 BOBO MITCHELLKimberlyn DANIEL FARIA 466.0 Bronchitis, Acute 08/13/2012 BOBO MITCHELLKimberlyn DANIEL FARIA V65.42 COUNSELING - SMOKING CESSATION 08/13/2012 ROSI KESSLER, DEANA M 305.1 TOBACCO ABUSE 08/13/2012 ROSI KESSLER, DEANA M 466.0 Bronchitis, Acute 08/13/2012 ROSI KESSLER, DEANA M V65.42 COUNSELING - SMOKING CESSATION 08/13/2012 ROSI KESSLER, DEANA M 305.1 TOBACCO ABUSE 08/13/2012 ROSI PAIN COORDINATOR, DEANA M 466.0 Bronchitis, Acute 08/13/2012 ROSI KESSLER, DEANA M V65.42 COUNSELING - SMOKING CESSATION 02/25/2013 EVELYN ZULETA DOA K V03.82 PPV23 (PNEUMOVAX) DX 02/25/2013 ZULETA EVELYN CURRANA K V03.82 PPV23 (PNEUMOVAX) DX 02/25/2013 ARUN VEGA MD V03.82 PPV23 (PNEUMOVAX) DX 02/25/2013 ZULETA DO ARTI K V03.82 PPV23 (PNEUMOVAX) DX 02/25/2013 ZULETA DO ARTI K V03.82 PPV23 (PNEUMOVAX) DX 02/25/2013 MERLYN CURRAN ARTI K V03.82 PPV23 (PNEUMOVAX) DX 02/25/2013 BOBO PEREYRA DANIEL BIENVENIDO V03.82 PPV23 (PNEUMOVAX) DX 02/25/2013 MORENA MONTENEGRO APRN V03.82 PPV23 (PNEUMOVAX) DX 02/25/2013 OBBO PEREYRA DANIEL BIENVENIDO V03.82 PPV23 (PNEUMOVAX) DX 02/25/2013 DEANA LEWIS V03.82 PPV23 (PNEUMOVAX) DX 02/25/2013 DEANA LEWIS V03.82 PPV23 (PNEUMOVAX) DX 06/04/2013 ZULETA DO, ARTI K 462 ACUTE PHARYNGITIS 06/04/2013 ZULETA DO, ARTI K 786.2 COUGH 06/04/2013 ZULETA DO, ARTI K 462 ACUTE PHARYNGITIS 06/04/2013 ZULETA DO, ARTI K 786.2 COUGH 06/04/2013 BOBO PEREYRA DANIEL BIENVENIDO 462 ACUTE PHARYNGITIS 06/04/2013 BOBO PEREYRA DANIEL BIENVENIDO 786.2 COUGH 06/04/2013 MORENA MONTENEGRO APRN 462 ACUTE PHARYNGITIS 06/04/2013 MORENA MONTENEGRO APRN 786.2 COUGH 06/04/2013 BOBO PEREYRA DANIEL BIENVENIDO 462 ACUTE PHARYNGITIS 06/04/2013 BOBO PEREYRA DANIEL BIENVENIDO 786.2 COUGH 06/04/2013 DEANA LEWIS M 462 ACUTE PHARYNGITIS 06/04/2013 DEANA LEWIS M 786.2 COUGH 06/04/2013 DEANA LEWIS M 462 ACUTE PHARYNGITIS 06/04/2013 DEANA LEWIS M 786.2 COUGH 10/02/2013 EVELYN ZULETA DOA K 465.9 UPPER RESPIRATORY INFECTION 10/02/2013 EVELYN ZULETA DOA K 787.02 NAUSEA ALONE 10/02/2013 BOBO PEREYRA DANIEL BIENVENIDO 465.9 UPPER RESPIRATORY INFECTION 10/02/2013 BOBO PEREYRA DANIEL BIENVENIDO 787.02 NAUSEA ALONE 10/02/2013 MORENA MONTENEGRO APRN 465.9 UPPER RESPIRATORY INFECTION 10/02/2013 MORENA MONTENEGRO APRN 787.02 NAUSEA ALONE 10/02/2013 BOBO PEREYRA DANIEL BIENVENIDO 465.9 UPPER RESPIRATORY INFECTION 10/02/2013 BOBO PEREYRA DANIEL BIENVENIDO 787.02 NAUSEA ALONE 10/02/2013 DEANA LEWIS M 465.9 UPPER RESPIRATORY INFECTION 10/02/2013 DEANA LEWIS 787.02 NAUSEA ALONE 10/02/2013 DEANA LEWIS 465.9 UPPER RESPIRATORY INFECTION 10/02/2013 DEANA LEWIS 787.02 NAUSEA ALONE Procedures Code Description [place] [address] ROUTINE VENIPUNCTURE 08/25/2012 24788 CBC 08/25/2012 43976 LIPID PANEL 08/25/2012 53442 CMP 08/25/2012 8614165 GFR CALC (RESULT ONLY) 08/25/2012 53323 GLUCOSE FINGER STICK 12/09/2012 11113 ROUTINE VENIPUNCTURE 05/13/2013 69441 CMP 05/13/2013 20587 ROUTINE VENIPUNCTURE 10/01/2013 55982 CBC 10/01/2013 65338 CMP 10/01/2013 35568 LIPID PANEL 10/01/2013 [id number] GFR CALC (RESULT ONLY) 10/01/2013 82125 TSH 10/01/2013 77253 OXIMETRY 10/02/2013 Results There is no data. Encounters ACCT No. Visit Date/Time Discharge Status Pt. Type Provider Facility Loc./Unit Complaint [id number] 09/10/2014 09:56:00 09/10/2014 23:59:59 CLS Outpatient DEANA LEWIS [id number] 09/10/2014 09:56:00 09/10/2014 23:59:59 CLS Outpatient DEANA LEWIS [id number] 03/09/2014 10:44:00 03/09/2014 23:59:59 CLS Outpatient BROUSSARD RODDYDANIEL [id number] 02/01/2014 11:46:00 02/01/2014 23:59:59 CLS Outpatient MORENA MONTENEGRO APRN [id number] 12/07/2013 13:57:00 12/07/2013 23:59:59 CLS Outpatient BOBO PEREYRADANIEL [id number] 10/02/2013 12:18:00 10/02/2013 23:59:59 CLS Outpatient ARTI ZULETA DO [id number] 06/04/2013 10:41:00 06/04/2013 23:59:59 CLS Outpatient ARTI ZULETA DO [id number] 05/13/2013 13:57:00 05/13/2013 23:59:59 CLS Outpatient ARTI ZULETA DO [id number] 04/29/2013 16:02:00 04/29/2013 23:59:59 CLS Outpatient ARUN VEGA MD [id number] 03/02/2013 15:54:00 03/02/2013 23:59:59 CLS Outpatient ARTI ZULETA DO Danial [id number] 02/25/2013 15:30:00 02/25/2013 23:59:59 CLS Outpatient ARTI ZULETA DO Danial [id number] 08/27/2012 15:21:00 08/27/2012 23:59:59 CLS Outpatient TRENT STORM DO [id number] 08/25/2012 08:40:00 08/25/2012 23:59:59 CLS Outpatient MORENA MONTENEGRO APRN [id number] 08/13/2012 09:20:00 08/13/2012 23:59:59 CLS Outpatient [id number] 07/29/2012 15:28:00 07/29/2012 23:59:59 CLS Outpatient TRENT STORM DO [id number] 05/14/2012 15:43:00 05/14/2012 23:59:59 CLS Outpatient MORENA MONTENEGRO APRN [id number] 03/12/2012 15:26:00 03/12/2012 23:59:59 CLS Outpatient MORENA MONTENEGRO APRN [id number] 12/09/2012 07:43:00 Document Registration [id number] 11/10/2012 14:37:00 Document Registration
--- NOTE | 2017-08-19 11:26 | ED General ---
General Chief Complaint: Lower Extremity Stated Complaint: DVT Nursing Triage Note: C/o swelling and increasing redness to left lower extremity. Pt was recently diagnosed with a left leg DVT. Currently on Eliquis. Nursing Sepsis Screen: No Definite Risk Source of Information: Patient, Family, Custodial Records, Old Records Exam Limitations: Other (Dementia) History of Present Illness Date Seen by Provider: Aug 19, 2017 Time Seen by Provider: 10:00 Initial Comments This 66-year-old woman presents to the emergency room via private vehicle from [facility] for reasons of worsening swelling in the left lower extremity after being diagnosed with DVT on August 13. Apparently a [facility] staff was concerned about the degree of edema and some skin changes occurring on the foot. Patient is presently on Eliquis. She is not accompanied by staff on arrival. She is ambulatory. It was noted after initial assessment that the order for transfer to the ER stated black stools were present. Allergies and Home Medications Allergies Coded Allergies: morphine (Verified Allergy, Intermediate, 08/01/17) butorphanol (Verified Allergy, Unknown, 08/01/17) Home Medications Buspirone HCl 10 Mg Tablet, 10 MG PO TID Prescribed by: MALGORZATA COON on 08/02/17 1558 Cephalexin 500 Mg Capsule, 500 MG PO QID Prescribed by: MELISSA ALEXANDER on 08/19/17 1246 Lisinopril 10 Mg Tablet, 10 MG PO DAILY, (Reported) Lovastatin 20 Mg Tablet, 20 MG PO HS, (Reported) Metronidazole 500 Mg Tablet, 500 MG PO TID Prescribed by: MALGORZATA COON on 08/02/17 1506 Pantoprazole Sodium 40 Mg Tablet.dr, 40 MG PO DAILY@0700 Prescribed by: MALGORZATA COON on 08/02/17 1506 Quetiapine Fumarate 300 Mg Tablet, 300 MG PO HS, (Reported) Patient Home Medication List Home Medication List Reviewed: Yes Constitutional: no symptoms reported EENTM: no symptoms reported Respiratory: no symptoms reported Cardiovascular: see HPI Gastrointestinal: see HPI Genitourinary: no symptoms reported Musculoskeletal: no symptoms reported Skin: see HPI Psychiatric/Neurological: Other (dementia) Hematologic/Lymphatic: See HPI Immunological/Allergic: no symptoms reported Past Scaisqh-Tprrtu-Sflrho Hx Patient Social History Alcohol Use: Occasionally Uses Recreational Drug Use: Yes (alcohol) Smoking Status: Current Everyday Smoker Type Used: Cigarettes Recent Foreign Travel: No Contact w/Someone Who Travel: No Recent Infectious Disease Expo: No Recent Hopitalizations: No Immunizations Up To Date Date of Influenza Vaccine: Mar 25, 2017 Seasonal Allergies Seasonal Allergies: No Surgeries History of Surgeries: Yes Surgeries: Appendectomy, Section, Hysterectomy Respiratory History of Respiratory Disorde: No Cardiovascular History of Cardiac Disorders: Yes Cardiac Disorders: Deep Vein Thrombosis, High Cholesterol, Hypertension Neurological History of Neurological Disord: Yes (ELECTRIC SHOCK TREATMENT ( LAST ONE 14 YRS. AGO)) Neurological Disorders: Dementia Reproductive System : No Hx Reproductive Disorders: No Sexually Transmitted Disease: No HIV/AIDS: No Genitourinary History of Genitourinary Disor: No Gastrointestinal History of Gastrointestinal Di: Yes ( BOWEL ISSUES, LOSS APPETITE) Gastrointestinal Disorders: Colitis (ischemic), Gastroesophageal Reflux Musculoskeletal History of Musculoskeletal Dis: No Endocrine History of Endocrine Disorders: No HEENT History of HEENT Disorders: Yes Loss of Vision: Bilateral Hearing Impairment: Denies Cancer History of Cancer: No Psychosocial History of Psychiatric Problem: Yes Behavioral Health Disorders: Anxiety, Depression Integumentary History of Skin or Integumenta: No Blood Transfusions History of Blood Disorders: No Adverse Reaction to a Blood Tr: No (N/A) Physical Exam Vital Signs Vital Signs - First Documented 08/19/17 10:16 Temp 96.9 Pulse 76 Resp 16 B/P (MAP) 127/71 (89) Pulse Ox 98 Capillary Refill : Less Than 3 Seconds General Appearance: No Apparent Distress, WD/WN HEENT: PERRL/EOMI, Normal ENT Inspection Neck: Normal Inspection Respiratory: Lungs Clear, Normal Breath Sounds, No Accessory Muscle Use, No Respiratory Distress Cardiovascular: Regular Rate, Rhythm, No Edema, No Murmur Gastrointestinal: Non Tender, Soft Rectal: Normal Exam, Heme Positive Stool (faintly positive) Extremity: Pedal Edema, Swelling, Other (left lower extremity is markedly swollen with pitting edema. Capillary refill of the toes is less than 5 seconds. She retains movement and sensation. 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, Other (dementia at baseline) Skin: Normal Color, Warm/Dry, Other (see above) Progress/Results/Core Measures Suspected Sepsis Recent Fever Within 48 Hours: No Infection Criteria Present: Suspected New Infection New/Unexplained Altered Menta: No Sepsis Screen: No Definite Risk Sepsis Diagnosis: SIRS Temperature:96.9 Pulse: 76 Respiratory Rate: 16 Laboratory Tests 08/19/17 10:30: White Blood Count 8.4 Blood Pressure 127 /71 Mean: 89 Laboratory Tests 08/19/17 10:30: Creatinine 0.72, Platelet Count 252 Results/Orders Lab Results Laboratory Tests Test 08/19/17 10:30 08/19/17 11:30 Range/Units White Blood Count 8.4 4.3-11.0 10^3/uL Red Blood Count 4.40 4.35-5.85 10^6/uL Hemoglobin 14.8 11.5-16.0 G/DL Hematocrit 44 35-52 % Mean Corpuscular Volume 101 H 80-99 FL Mean Corpuscular Hemoglobin 34 25-34 PG Mean Corpuscular Hemoglobin Concent 34 32-36 G/DL Red Cell Distribution Width 17.0 H 10.0-14.5 % Platelet Count 252 130-400 10^3/uL Mean Platelet Volume 10.3 7.4-10.4 FL Neutrophils (%) (Auto) 65 42-75 % Lymphocytes (%) (Auto) 21 12-44 % Monocytes (%) (Auto) 10 0-12 % Eosinophils (%) (Auto) 4 0-10 % Basophils (%) (Auto) 0 0-10 % Neutrophils # (Auto) 5.4 1.8-7.8 X 10^3 Lymphocytes # (Auto) 1.8 1.0-4.0 X 10^3 Monocytes # (Auto) 0.9 0.0-1.0 X 10^3 Eosinophils # (Auto) 0.3 0.0-0.3 10^3/uL Basophils # (Auto) 0.0 0.0-0.1 10^3/uL Sodium Level 140 135-145 MMOL/L Potassium Level 4.2 3.6-5.0 MMOL/L Chloride Level 102 98-107 MMOL/L Carbon Dioxide Level 29 21-32 MMOL/L Anion Gap 9 5-14 MMOL/L Blood Urea Nitrogen 12 7-18 MG/DL Creatinine 0.72 0.60-1.30 MG/DL Estimat Glomerular Filtration Rate > 60 BUN/Creatinine Ratio 17 Glucose Level 109 H 70-105 MG/DL Calcium Level 9.1 8.5-10.1 MG/DL C-Reactive Protein High Sensitivity 2.69 H 0.00-0.50 MG/DL Urine Color YELLOW Urine Clarity CLEAR Urine pH 6.5 5-9 Urine Specific [place] 1.010 L 1.016-1.022 Urine Protein NEGATIVE NEGATIVE Urine Glucose (UA) NEGATIVE NEGATIVE Urine Ketones NEGATIVE NEGATIVE Urine Nitrite NEGATIVE NEGATIVE Urine Bilirubin NEGATIVE NEGATIVE Urine Urobilinogen NORMAL NORMAL MG/DL Urine Leukocyte Esterase NEGATIVE NEGATIVE Urine RBC (Auto) NEGATIVE NEGATIVE Urine RBC NONE /HPF Urine WBC NONE /HPF Urine Squamous Epithelial Cells 5-10 /HPF Urine Crystals NONE /LPF Urine Bacteria NEGATIVE /HPF Urine Casts NONE /LPF Urine Mucus NEGATIVE /LPF Urine Culture Indicated NO My Orders Orders - MELISSA IGLESIAS MD Cbc With Automated Diff (08/19/17 10:17) Hs C Reactive Protein (08/19/17 10:17) Fecal Occult Bedside (08/19/17 11:33) Ua Culture If Indicated (08/19/17 11:37) Us Left Low Ext Arterial 89001 (08/19/17 11:41) Basic Metabolic Panel (08/19/17 11:45) Ceftriaxone Injection (Rocephin Injectio (08/19/17 11:45) Medications Given in ED Vital Signs/I&O Capillary Refill : Less Than 3 Seconds Blood Pressure Mean: 89 Progress Note : Time: 11:44 Progress Note Patient was initially seen and evaluated upon arrival. She was found to have a markedly edematous left lower extremity with a patch of erythema on the dorsum of the left foot. Pedal and posterior tibial pulses could not be palpated due to edema. However, bedside Doppler revealed strong pulse in both locations. Patient has known DVT that was diagnosed on August 13. She is taking Eliquis. Labs were performed and she was found to have a minimal elevation in CRP and a normal WBC. Vital signs were also unremarkable. We were preparing to dismiss the patient home with a prescription for antibiotics when the daughter arrived and provided further history. Apparently she has been having multiple black stools and has been acting confused above her baseline. This prompted Hemoccult testing which was faintly positive. There was no evidence of blood at the rectum grossly. Her hemoglobin was stable. A UA is now also being checked because of the confusion. I discussed the case with Dr. Guerrero, physician car installations supervisor for [facility]. She comments that one reason patient was sent to the ER was because there was concern about arterial flow expressed by nurses who could not palpate pulses. Apparently this patient has been set up for a referral to a vascular surgeon to discuss an IVC filter and other possible interventions to treat and prevent further DVT and complications. That appointment is reportedly scheduled for tomorrow. While family and [facility] have questioned if this patient needs to be admitted, Dr. Guerrero wants to avoid admission so as to expedite her referral to the vascular surgeon. She does not currently meet admission criteria as her vital signs and hemoglobin are stable and she has no evidence of active bleeding. Since patient will be seeing the vascular surgeon and there was some concern about arterial flow, and arterial ultrasound will be performed so that information from that study will be available for the vascular surgeon. Case was discussed at length with patient's daughter and with Dr. Guerrero. Plan is to dismiss home after the ultrasound. A gram of Rocephin is being administered in the meantime for initial treatment of the cellulitis. I discussed with family and Dr. Guerrero the potential for wound care to help treat the edema. Daughter reports the lower extremity has not been elevated at all when she has been at the [facility]. The patient has remained in a wheelchair most of the time despite her ability to walk. Daughter was instructed to monitor for further melena or hematochezia. Diagnostic Imaging Diagonstic Imaging: Ultrasound Plain Films/CT/US/NM/MRI: leg Comments Arterial ultrasound discussed with the radiation control technician and report reviewed. See report below: NAME: JORGE STEVENS [facility] REC#: [id number] PT STATUS: REG ER : 1950 PHYSICIAN: MELISSA IGLESIAS MD ADMIT DATE: 08/19/17/ER Draft Date of Exam:08/19/17 US LEFT LOW EXT ARTERIAL [id number] Procedure: Left lower extremity arterial Doppler. Indication: Leg pain and swelling. Findings: Spectral color flow and to the left lower extremity was performed. There are no previous arterial Doppler examinations available for comparison. The venous exam of the left lower study performed 08/13/2017 did note extensive deep venous thrombosis. This study was technically difficult due to generalized leg edema. There is fairly good arterial blood flow to the left lower extremity. There is no abrupt alteration of velocities to suggest hemodynamically significant stenosis. Triphasic waveforms are also seen at all levels. Impression: There is fairly good arterial blood flow to the left lower extremity. There is no sign of a hemodynamically significant stenosis. Dictated on workstation # [id number] Dict: 08/19/17 1329 Trans: 08/19/17 1337 CVB [id number] Interpreted by: YORDY RUSSELL MD Departure Impression Impression: Primary Impression: Cellulitis of left foot Additional Impressions: Left leg DVT Qualified Codes: I82.402 - Acute embolism and thrombosis of unspecified deep veins of left lower extremity Edema of left lower extremity Heme positive stool Disposition: HOME, SELF-CARE Condition: Improved Departure-Patient Inst. Decision time for Depature: 11:44 Referrals: ARUN VEGA MD (PCP) Primary Care Physician MORENA MONTENEGRO (Family) Primary Care Physician Patient Instructions: Cellulitis (Skin Infection), Adult (DC), Deep Vein Thrombosis (Blood Clots in the Legs) Add. Discharge Instructions: Complete your antibiotics as prescribed. Keep your appointment with the vascular surgeon. Continue with Eliquis. Elevate the left foot and lower leg to the level of the heart is much as possible to help reduce swelling. Consider seeking referral to [facility] for further evaluation and treatment of the swelling. You can call to schedule at [phone]. All discharge instructions reviewed with patient and/or family. Voiced understanding. Scripts Cephalexin (Keflex) 500 Mg Capsule 500 MG PO QID, #28 CAP Prov: MELISSA IGLESIAS MD 08/19/17 Copy Copies To 1: ORIANA GUERRERO MD, JOSHUA T MD Aug 19, 2017 11:26
[2017-08-19 11:43] LABS: BILIRUBIN,URINE NEGATIVE (NEGATIVE); CLARITY,URINE CLEAR; COLOR,URINE YELLOW; GLUCOSE, URINE (UA) NEGATIVE (NEGATIVE); KETONES,URINE NEGATIVE (NEGATIVE); LEUKOCYTE ESTERASE ,URINE NEGATIVE (NEGATIVE); NITRITE,URINE NEGATIVE (NEGATIVE); PH,URINE 6.5 (5-9); PROTEIN,URINE NEGATIVE (NEGATIVE); UROBILINOGEN,URINE NORMAL (NORMAL)
[2017-08-19] MEDS ORDERED: cefTRIAXone INJECTION 1,000 MG in NS (IVPB) 100 ML IV ONE (11:45)
[2017-08-19 11:49] LABS: BACTERIA,URINE NEGATIVE /HPF
[2017-08-19 12:35] LABS: BUN/CREATININE RATIO 17; CALCIUM 9.1 MG/DL (8.5-10.1); CARBON DIOXIDE 29 MMOL/L (21-32); CHLORIDE 102 MMOL/L (98-107); CREATININE SERUM 0.72 MG/DL (0.60-1.30); GFR ESTIMATED > 60; GLUCOSE 109 MG/DL (70-105); POTASSIUM 4.2 MMOL/L (3.6-5.0); SODIUM 140 MMOL/L (135-145)
[2017-08-19] MEDS ORDERED: CEPH-507 PO (12:46)
[2017-08-19 13:37] VITALS: BP 128/70
--- NOTE | 2017-08-19 13:37 | Diagnostic Imaging Report ---
Procedure: Left lower extremity arterial Doppler. Indication: Leg pain and swelling. Findings: Spectral color flow imaging of the left lower extremity was performed. There are no previous arterial Doppler examinations available for comparison. The venous exam of the left lower study performed 08/13/2017 did note extensive deep venous thrombosis. This study was technically difficult due to generalized leg edema. There is fairly good arterial blood flow to the left lower extremity. There is no abrupt alteration of velocities to suggest hemodynamically significant stenosis. Triphasic waveforms are also seen at all levels. Impression: There is fairly good arterial blood flow to the left lower extremity. There is no sign of a hemodynamically significant stenosis. Dictated by: Dictated on workstation # [id number]
== END 2017-08-19 13:37 | disposition home or self-care (01) ==
LOC: EDUNIT# 09:55 → ER 09:56
DX: L03.116 Cellulitis of left lower limb (principal); I82.402 Acute embolism and thrombosis of unspecified deep veins of left lower extremity; R19.5 Other fecal abnormalities; E78.00 Pure hypercholesterolemia, unspecified; I10 Essential (primary) hypertension; F03.90 Unspecified dementia, unspecified severity, without behavioral disturbance, psychotic disturbance, mood disturbance, and anxiety; K21.9 Gastro-esophageal reflux disease without esophagitis; F41.9 Anxiety disorder, unspecified; F32.9 Major depressive disorder, single episode, unspecified; F17.210 Nicotine dependence, cigarettes, uncomplicated; Z87.19 Personal history of other diseases of the digestive system; Z88.5 Allergy status to narcotic agent; Z90.49 Acquired absence of other specified parts of digestive tract; Z87.59 Personal history of other complications of pregnancy, childbirth and the puerperium; Z90.710 Acquired absence of both cervix and uterus; Z79.01 Long term (current) use of anticoagulants; Z88.6 Allergy status to analgesic agent
CPT/HCPCS: 36415; 80048; 81000; 85025; 86141; 93926; 96365

== ENCOUNTER 2017-09-13 10:00 | Outpatient (CLI) | payer OTHER ==
[~2017-09-13] VITALS: Ht 170.2 cm; Wt 81.6 kg
[~2017-09-13 10:00] MED LIST changes: +ACET325C PO; +APIX5TAB PO; +CEPH-507 PO; +NICO-533 TD; +QUET150T2 PO; +TRIH2TAB2 PO
== END 2017-09-13 10:42 ==
LOC: PREOP 10:00
PROVIDERS: ATTEND Surgery
DX: Z01.818 Encounter for other preprocedural examination (principal); K55.9 Vascular disorder of intestine, unspecified; K62.5 Hemorrhage of anus and rectum

== ENCOUNTER 2017-09-16 08:56 | Day surgery (SDC) | payer MEDICARE, OTHER ==
[~2017-09-16] VITALS: Ht 170.2 cm; Wt 81.6 kg
--- OUTSIDE RECORDS SUMMARY | 2017-09-16 09:01 | XMS REPORT ---
Author Author DEANA Grossman Organization [facility] Address Unknown Care Team Providers Care Adobe Flex Developer Name Role Phone DEANA Grossman Unavailable PROBLEMS Type Condition ICD9-CM Code DOK88-RJ Code Onset Dates Condition Status SNOMED Code Problem Mood disorder F39 Active 70313270 Problem Hypertension, benign I10 Active 21181518 Problem Anxiety disorder, unspecified F41.9 Active 477494752 Problem Dementia without behavioral disturbance, unspecified dementia type F03.90 Active 52671821 Problem 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 765390811 Problem Major depression F32.9 Active 520444568 Problem Cognitive dysfunction F09 Active 746673606 ALLERGIES No Information ENCOUNTERS Encounter Location Date Diagnosis [facility] [id number] [place] [address] 93758- 8671 Aug, [facility] [id number] [place] [address] 12642- 3201 Aug, [facility] [id number] [place] [address] [id number] Aug, [facility] [id number] [place] [address] 92132- 7868 Aug, [facility] [id number] [place] [address] 19696- 4289 Aug, Acute deep vein thrombosis (DVT) of proximal vein of left lower extremity I82.4Y2 [facility] [address] [place] [id number] Aug, Left leg swelling M79.89 [facility] [address] [address] 4286 Aug, Mood disorder F39 and Dementia without behavioral disturbance, unspecified dementia type F03.90 [facility] [address] [place] [address] 69870- 5652 Jul, [facility] [id number] [place] [address] 63215- 5476 Jul, Dementia without behavioral disturbance, unspecified dementia type F03.90 and Mood disorder F39 [facility] [address] [place] [id number] Jul, Encounter for examination for admission to fpc Z02.2 ; Rectal bleed K62.5 ; Dementia without behavioral disturbance, unspecified dementia type F03.90 ; Hypertension, benign I10 ; Edema R60.9 [address] Major depression F32.9 [facility] [id number] [place] [address] [id number] Jul, [facility] [id number] [place] [address] 38051- 2736 Apr, Dementia without behavioral disturbance, unspecified dementia type F03.90 and Mood disorder F39 [facility] [id number] [place] [address] 47898- 4358 Apr, [facility] [id number] [place] [address] 32666- 1267 Feb, Hypertension, benign I10 [facility] [id number] [place] [address] 07990- 3192 Dec, Major depression F32.9 ; Anxiety disorder, unspecified F41.9 ; Cognitive dysfunction F09 and Dementia without behavioral disturbance, unspecified dementia type F03.90 [facility] [address] [place] [address] 83564- 4101 October, Hypertension, benign I10 [facility] [id number] [place] [address] 58615- 0678 Sep, Major depression F32.9 ; Anxiety disorder, unspecified F41.9 and Cognitive dysfunction F09 [facility] [id number] [place] [address] 54683- 2639 Apr, Major depression F32.9 and Cognitive dysfunction F09 [place] [address] [address] 46[address] Jan, Anxiety disorder, unspecified F41.9 ; Major depression F32.9 and Cognitive dysfunction F09 [place] [address] [place] [address] 95261- 8579 Jan, [facility] [id number] [place] [address] 77639- 8181 Dec, [facility] [id number] [place] [address] 22634- 2369 Dec, [facility] [id number] [place] [address] 90434- 2335 Nov, Anxiety disorder, unspecified F41.9 ; Major depression F32.9 and Cognitive dysfunction F09 [facility] [facility] [id number] [place] [address] 59394- 0245 October, Dementia without behavioral disturbance, unspecified dementia type F03.90 [facility] [id number] [place] [address] 65556- 4019 Sep, Cognitive dysfunction F09 and Edema R60.9 [facility] [facility] [id number] [place] [address] 45416- 0856 Sep, Cognitive dysfunction F09 and Edema R60.9 [facility] [id number] [place] [address] 44001- 8198 Aug, Self-care deficit for medication administration R41.89 ; Self-care deficit in patient living alone R46.89 and Cognitive dysfunction F09 [place] [facility] [id number] [place] [address] 24788- 1055 Aug, 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 and Unspecified intracranial injury without loss of consciousness, sequela S06.9X0S [place] [address] [place] [address] 36820- 2741 Jul, [facility] [address] [place] [address] 62771- 0151 Jun, Anxiety disorder, unspecified F41.9 and Major depression F32.9 [facility] [id number] [place] [address] 64871- 9272 Jun, [facility] [id number] [place] [address] 60745- 4736 May, [facility] [id number] [place] [address] 80878- 3052 May, Nausea R11.0 [facility] [address] 18239- 0209 Apr, [facility] [id number] [place] [address] 40596- 2536 Mar, Major depression F32.9 [facility] [id number] [place] [address] 33581- 7212 Mar, Encounter for immunization Z23 [facility] [id number] [place] [address] 08960- 8414 Mar, Major depression F32.9 and Anxiety disorder, unspecified F41.9 [facility] [id number] [place] [address] 22174- 2792 Dec, Major depression, chronic 296.20 and Anxiety disorder, unspecified 300.00 [facility] [id number] [place] [address] 17384- 7851 October, Hypertension 401.9 [facility] [id number] [place] [address] 10048- 1562 Sep, [facility] [id number] [place] [address] 82311- 4973 Sep, [facility] [id number] [place] [address] 26135- 4486 Jul, [facility] [address] [place] [address] 1168 Jul, [facility] [place] [facility] [address] [id number] [place] [address]- 9088 Jul, [facility] [place] [facility] [address] [id number] [place] [address]- 2259 May, [facility] [place] [facility] [address] [id number] [place] [address]- 6879 May, [facility] [place] [facility] [address] [id number] [place] [address]- 7144 May, [facility] [place] [facility] [address] [id number] [place] [address]- 6182 May, [facility] [place] [facility] [address] [id number] [place] [address]- 8476 Apr, [facility] [place] [facility] [address] [id number] [place] [address]- 8771 Apr, [facility] [place] [facility] [address] [id number] [place] [address]- 3364 Feb, [facility] [place] [facility] [address] [id number] [place] [address]- 8105 Feb, [facility] [place] [facility] [address] [id number] [place] [address]- 9558 Jan, [facility] [place] [facility] [address] [id number] [place] [address]- 2152 Jan, [facility] [place] [facility] [address] [id number] [place] [address]- 6197 Jan, [facility] [place] [facility] [address] [id number] [place] [address]- 6514 Jan, [facility] [place] [facility] [address] [id number] [place] [address]- 2113 Dec, [facility] [place] [facility] [address] [id number] [place] [address]- 3409 Dec, [facility] [place] [facility] [address] [id number] [place] [address]- 5176 Nov, [facility] [place] [facility] [address] [id number] [place] [address]- 1491 Nov, [facility] [place] [facility] [address] [id number] [place] [address]- 3917 Nov, [facility] [place] [facility] [address] [id number] [place] [address]- 8905 Nov, [facility] [place] [facility] [address] [id number] [place] [address]- 1949 October, [facility] [place] [facility] [address] [id number] [place] [address]- 0039 October, [facility] [place] [facility] [address] [id number] [place] [address]- 0484 Sep, [facility] [place] [facility] [address] [id number] [place] [address]- 1525 Sep, [facility] [place] [facility] [address] [id number] [place] [address]- 1651 Sep, [facility] [place] [facility] [address] [id number] [place] [address]- 7058 Sep, [facility] [place] [facility] [address] [id number] [place] [address]- 6487 Sep, [facility] [place] [facility] [address] [id number] [place] [address]- 6013 Sep, [facility] [place] [facility] [address] [id number] [place] [address]- 6475 Aug, [facility] [place] [facility] [address] [id number] [place] [address]- 5491 Aug, [facility] [place] [facility] [address] [id number] [place] [address]- 0138 Jul, [facility] [place] [facility] [address] [id number], [place] [address]- 8227 Jul, [facility] [address] [id number] [place] [address]- 6543 May, [facility] [place] [facility] [address] [id number] [place] [address]- 3917 May, [facility] [address] [facility] [id number] [place] [address]- 0271 May, [facility] [place] [facility] [address] [id number] [place] [address]- 7280 May, [facility] [address] [id number] [place] [address]- 8695 May, [facility] [place] [facility] [address] [id number] [place] [address]- 3699 May, [facility] [id number] [place] [address]- 7464 Apr, [facility] [place] [facility] [address] [facility] [id number] [place] [address]- 7616 Apr, [facility] [address] [facility] [id number] [place] [address]- 4634 Apr, [facility] [place] [facility] [address] [facility] [id number] [place] [address]- 2496 Apr, [facility] [place] [facility] [address] [facility] [id number], [place] [address]- 8841 Apr, [facility] [place] [facility] [address] [facility] [id number], [place] [address]- 8000 Apr, [facility] [place] [facility] [address] [id number] [place] [address]- 3866 Feb, [facility] [place] [facility] [address] [id number] [place] [address]- 2230 23 Feb, 2013 [facility] [place] [facility] [address] [facility] [id number] [place] [address]- 3609 18 Feb, 2013 [facility] [place] [facility] [address] [id number] [place] [address]- 2546 Feb, [facility] [address] [id number] [place] [address] 2546 Jan, [facility] [place] [facility] [address] [id number] [place] [address]- 2546 Dec, [facility] [address] [id number] [place] [address]- 2546 Dec, [facility] [place] [facility] [address] [id number] [place] [address]- 2546 Dec, [facility] [address] [id number] [place] [address]- 2546 Dec, [facility] [address] [id number] [place] [address]- 4046 Nov, [facility] [address] [id number] [place] [address]- 2546 Nov, [facility] [address] [id number] [place] [address]- 6039 October, [facility] [address] [id number] [place] [address]- 7616 October, [facility] [address] [id number] [place] [address] 2546 October, [facility] [address] [id number] [place] [address]- 2546 October, [facility] [address] [id number] [place] [address]- 2546 Sep, [facility] [place] [facility] [address] [id number] [place] [address]- 2546 Aug, [facility] [place] [facility] [address] [id number] [place] [address]- 2546 18 Aug, 2012 [facility] [place] [facility] [address] [id number] [place] [address]- 2305 Aug, [facility] [place] [facility] [address] [id number] [place] [address]- 1959 Aug, [facility] [place] [facility] [address] [id number] [place] [address]- 4640 Jul, [facility] [place] [facility] [address] [id number] [place] [address]- 7886 Jul, [facility] [place] [facility] [address] [id number] [place] [address]- 1315 Jul, [facility] [place] [facility] [address] [id number] [place] 3452 Jun, [facility] [place] [facility] [address] [id number] [place] [address]- 8491 Jun, [facility] [place] [facility] [address] [id number] [place] [address]- 6457 May, [facility] [place] [facility] [address] [id number] [place] [address]- 6235 May, [facility] [place] [facility] [address] [id number] [place] [address]- 9798 Apr, [facility] [place] [facility] [address] [id number] [place] [address]- 3304 Apr, [facility] [place] [facility] [address] [id number] [place] [address]- 0073 Apr, [facility] [place] [facility] [address] [id number], [place] [address]- 9234 Apr, [facility] [place] [facility] [address] [id number] [place] [address]- 0318 Apr, [facility] [place] [facility] [address] [id number] [place] [address]- 5662 Apr, [facility] [place] [facility] [address] [id number] [place] [address]- 6025 Mar, [facility] [place] [facility] [address] [id number] [place] [address]- 1452 Mar, [facility] [address] [id number] [place] [address]- 9716 Mar, [facility] [place] [facility] [address] [id number] [place] [address]- 5925 Mar, [facility] [place] [facility] [address] [id number] [place] [address]- 3995 Mar, [facility] [place] [facility] [address] [id number] [place] [address]- 3875 Mar, [facility] [place] [facility] [address] [id number] [place] 4360 Mar, [facility] [place] [facility] [address] [id number] [place] [address]- 9152 Feb, [facility] [place] [facility] [address] [id number] [place] [address]- 3214 Feb, [facility] [place] [facility] [address] [id number] [place] [address]- 3866 Jan, [facility] [place] [facility] [address] [id number] [place] [address]- 9861 Dec, [facility] [place] [facility] [address] [id number] [place] [address]- 4844 Dec, [facility] [place] [facility] [address] [id number] [place] [address]- 8854 Nov, [facility] [place] [facility] [address] [id number] [place] [address]- 9639 Nov, [facility] [place] [facility] [address] [id number] [place] [address]- 9900 Nov, [facility] [place] [facility] [address] [id number] [place] [address] 1732 October, [facility] [place] [facility] [address] [id number] [place] [address]- 4509 Sep, [facility] [place] [facility] [address] [id number] [place] [address]- 1774 16 Sep, 2011 [facility] [place] [facility] [address] [id number] [place] [address]- 9426 04 Sep, 2011 [facility] [place] [facility] [address] [id number] [place] [address]- 5046 26 Aug, 2011 [facility] [place] [facility] [address] [id number] [place] [address]- 0446 21 Aug, 2011 [facility] [place] [facility] [address] [id number] [place] [address]- 3401 20 Aug, 2011 [facility] [place] [facility] [address] [id number] [place] [address]- 5241 15 Aug, 2011 [facility] [place] [facility] [address] [id number] [place] [address]- 8924 14 Aug, 2011 [facility] [place] [facility] [address] [id number] [place] [address]- 8029 12 Aug, 2011 [facility] [place] [facility] [address] [id number] [place] [address]- 5162 08 Aug, 2011 [facility] [place] [facility] [address] [id number] [place] [address]- 2991 05 Aug, 2011 [facility] [place] [facility] [address] [id number] [place] [address]- 7186 27 Jul, 2011 [facility] [place] [facility] [address] [id number] [place] [address]- 9752 Jul, [facility] [place] [facility] [address] [id number] [place] [address]- 8261 20 Jul, 2011 [facility] [place] [facility] [address] [id number] [place] [address]- 3356 15 Jul, 2011 [facility] [place] [facility] [address] [id number] [place] [address]- 8726 06 Jul, 2011 [facility] [place] [facility] [address] [id number] [place] [address]- 4173 03 Jul, 2011 [facility] [address] [id number] [place] [address]- 0716 Jun, [facility] [place] [facility] [address] [id number] [place] [address]- 0846 Jun, [facility] [address] [id number] [place] [address]- 5776 Jun, [facility] [place] [facility] [address] [id number] [place] [address]- 3289 Jun, [facility] [address] [id number] [place] [address]- 8748 29 May, 2011 [facility] [place] [facility] [address] [id number] [place] [address]- 4351 May, [facility] [address] [id number] [place] [address]- 0761 May, [facility] [place] [facility] [address] [id number] [place] [address]- 2687 May, [facility] [place] [facility] [address] [id number] [place] [address]- 9342 May, [facility] [place] [facility] [address] [facility] [id number] [place] [address]- 9491 30 Apr, 2011 [facility] [place] [facility] [address] [id number] [place] [address]- 2475 14 Apr, 2011 [facility] [place] [facility] [address] [id number] [place] [address]- 2510 31 Mar, 2011 [facility] [place] [facility] [address] [id number] [place] [address]- 7212 15 Feb, 2011 [facility] [place] [facility] [address] [id number] [place] [address]- 9473 12 Feb, 2011 [facility] [place] [facility] [address] [id number] [place] [address]- 7699 May, [facility] [address] [id number] [address]- 2927 Apr, [facility] [address] [address]- 8451 Apr, [facility] [address] [address]- 5121 Apr, [facility] [address], [place] [address]- 4260 Apr, [facility] [address], [place] [address]- 5166 Apr, [facility] [address] [address]- 1872 Apr, [facility] [address] [place] [address]- 4964 Mar, [facility] [address] [place] [address]- 0804 Mar, [facility] [address] [id number], [place] [address]- 8177 Sep, IMMUNIZATIONS No Known Immunizations SOCIAL HISTORY Never Assessed REASON FOR VISIT mireille/al Gilliland MA PLAN OF CARE Activity Details Follow Up 3 Months Reason: VITAL SIGNS Height 68.25 in 2016-12-10 Weight 199.3 lbs 2016-12-10 Heart Rate 80 bpm 2016-12-10 Respiratory Rate 20 2016-12-10 BMI 30.08 kg/m2 2016-12-10 Blood pressure systolic 142 mmHg 2016-12-10 Blood pressure diastolic 96 mmHg 2016-12-10 MEDICATIONS Medication Instructions Dosage Frequency Start Date End Date Duration Status Lovastatin 20 MG 1 tablets 24h 30 Active Lisinopril 10 MG TAKE ONE TABLET BY MOUTH ONCE DAILY 30 Active Seroquel 300 MG Orally Once a day 1 tablet at bedtime 24h 14 Apr, 2016 30 days Active Vitamin C 500 mg 1 tablet by Oral route 1 time per day Sep, Active BusPIRone HCl 10 MG Orally Twice a day 1 tablet 12h 30 days Active Nexium 24HR 20 MG Orally Once a day 1 capsule 24h Active Fish Oil 1000 MG Orally Once a day 1 capsule 24h Active RESULTS No Results PROCEDURES No Known procedures INSTRUCTIONS MEDICATIONS ADMINISTERED No Known Medications MEDICAL (GENERAL) HISTORY Type Description Date Medical History hypertension Medical History anxiety Medical History depression (hx of ECT x2) Medical History insomnia Medical History dementia Surgical History appendectomy Surgical History hysterectomy 1984 Surgical History section x2 (1978 & 1980) Hospitalization History multiple admissions r/t depression; pt has had electrical lesvia therapy multiple times and 2 suicide attempts Hospitalization History Ischemic colitis, dementia, generalized debility-[facility] 07/30/17
--- OUTSIDE RECORDS SUMMARY | 2017-09-16 09:05 | XMS REPORT | Continuity of Care Document ---
Author Author [facility] Address Unknown Phone Unavailable Allergies Active Description Code Type Severity Reaction Onset Reported/Identified Relationship to Patient Clinical Status Yes BUTORPHANOL TARTRATE UNKNOWN ANAPHYLACTIC SHOCK Yes MORPHINE UNKNOWN OTHER Yes morphine Drug Allergy N/A N/A 07/13/2009 Yes Stadol Drug Allergy N/A N/A 07/13/2009 Yes morphine Drug Allergy 07/13/2009 Yes Stadol Drug Allergy 07/13/2009 Yes Iodinated Contrast Media - IV Dye Drug Allergy N/A N/A 09/29/2013 Yes SHELLFISH Food Allergy N/A N/A 09/29/2013 Yes butorphanol [id number] Drug Allergy Unknown N/A 08/01/2017 Yes morphine [id number] Drug Allergy Moderate N/A 08/01/2017 Medications Medication Packaging Start Date Stop Date Route Dosage Sig ACETAMINOPHEN ORAL TABLET 325mg(Tylenol) MG 09/09/2017 10/09/2017 PRN EVERY 4 Hour LOPERAMIDE CAP 2 MG (IMMODIUM) MG 09/09/2017 10/09/2017 PRN QID POLYETHYLENE GLYCOL POWDER UD PWD (MIRALAX 17GM UNIT DOSE PAKS) gm 09/09/2017 10/09/2017 PRN Q3H ALUM/MAG/SIMETH 30CC LIQ (MYLANTA PLUS) cc 09/09/2017 10/09/2017 PRN Q4H LACTULOSE SYRUP LIQ 20 GM/30CC (CHRONULAC SYRUP) GM 09/09/2017 10/09/2017 BID&0800,2000 MILK OF MAGNESIA LIQ ml 09/09/2017 10/09/2017 PRN BID TRAZODONE TAB 50 MG (DESYREL) MG 10/09/2017 PRN QHS MELATONIN TAB 3 MG (MELATONIN) MG 09/09/2017 10/09/2017 PRN QHS BISACODYL SUPPOS 10 MG (DULCOLAX SUPPOS) MG 09/10/2017 10/10/2017 PRN Daily Problems Date Dx Coded Attending Type Code Diagnosis Diagnosed By 05/20/2009 MORENA MONTENEGRO APRN 300.00 AN ANXIETY UNSPEC 05/20/2009 MORENA MONTENEGRO APRN 303.90 SA ALCOHOL DEPENDENCE 05/20/2009 MORENA MONTENEGRO APRN 307.47 SI DYSSOMNIA NOS 05/20/2009 MORENA MONTENEGRO APRN 311 MO DEPRESS NOS 05/20/2009 TRENT STORM DO 300.00 AN ANXIETY UNSPEC 05/20/2009 TRENT STORM DO 303.90 SA ALCOHOL DEPENDENCE 05/20/2009 TRENT [...] DO 300.00 AN ANXIETY UNSPEC 05/20/2009 TRENT STOMR DO 303.90 SA ALCOHOL DEPENDENCE 05/20/2009 TRENT [...] BROUSSARD APRN 300.00 AN ANXIETY UNSPEC 05/20/2009 DANIEL BROUSSARD APRN 303.90 SA ALCOHOL DEPENDENCE 05/20/2009 DANIEL BROUSSARD APRN 307.47 SI DYSSOMNIA NOS 05/20/2009 DANIEL BROUSSARD APRN 311 MO DEPRESS NOS 05/20/2009 MORENA MONTENEGRO APRN 300.00 AN ANXIETY UNSPEC 05/20/2009 MORENA MONTENEGRO APRN 303.90 SA ALCOHOL DEPENDENCE 05/20/2009 MORENA MONTENEGRO APRN 307.47 SI DYSSOMNIA NOS 05/20/2009 MORENA MONTENEGRO APRN 311 MO DEPRESS NOS 05/20/2009 DANIEL BROUSSARD APRN 300.00 AN ANXIETY UNSPEC 05/20/2009 BOBO MITCHELLNDANIEL 303.90 SA ALCOHOL DEPENDENCE 05/20/2009 BOBO MITCHELLN, DANIEL FARIA 307.47 SI DYSSOMNIA NOS 05/20/2009 DANIEL BROUSSARD APRN 311 MO DEPRESS NOS 05/20/2009 ROSI MANAGER WIND, DEANA M 300.00 AN ANXIETY UNSPEC 05/20/2009 ROSI MANAGER WIND, DEANA M 303.90 SA ALCOHOL DEPENDENCE 05/20/2009 ROSI MANAGER WIND, DEANA M 307.47 SI DYSSOMNIA NOS 05/20/2009 ROSI MANAGER WIND, DEANA M 311 MO DEPRESS NOS 05/20/2009 ROSI MANAGER WIND, DEANA M 300.00 AN ANXIETY UNSPEC 05/20/2009 ROSI MANAGER WIND, DEANA M 303.90 SA ALCOHOL DEPENDENCE 05/20/2009 ROSI MANAGER WIND, DEANA M 307.47 SI DYSSOMNIA NOS 05/20/2009 ROSI MANAGER WIND, DEANA M 311 MO DEPRESS NOS 05/24/2009 [...] K 298.8 P BRIEF PSYCHOTIC DISORDER 05/24/2009 BOBO PEREYRA, DANIEL FARIA 298.8 P BRIEF PSYCHOTIC DISORDER 05/24/2009 MORENA MONTENEGRO APRN 298.8 P BRIEF PSYCHOTIC DISORDER 05/24/2009 BROUSSARD DIAL BRUSHER, DANIEL FARIA 298.8 P BRIEF PSYCHOTIC DISORDER 05/24/2009 ROSI MANAGER WIND, DEANA M 298.8 P BRIEF PSYCHOTIC DISORDER 05/24/2009 ROSI MANAGER WIND, DEANA M 298.8 P BRIEF PSYCHOTIC DISORDER 07/13/2009 MORENA MONTENEGRO APRN 466.0 BRONCHITIS, ACUTE 07/13/2009 MORENA MONTENEGRO APRN V58.69 LONG-TERM (CURRENT) USE OF OTHER MEDICATIONS 07/13/2009 RENITADER DOMARIA ISABELEN F 466.0 BRONCHITIS, ACUTE 07/13/2009 EMETERIO DOMARIA ISABELEN F V58.69 LONG-TERM (CURRENT) USE OF OTHER MEDICATIONS 07/13/2009 466.0 BRONCHITIS, ACUTE 07/13/2009 V58.69 LONG-TERM ( CURRENT) USE OF OTHER MEDICATIONS 07/13/2009 MORENA MONTENEGRO APRN 466.0 BRONCHITIS, ACUTE 07/13/2009 MORENA MONTENEGRO APRN V58.69 LONG-TERM (CURRENT) USE OF OTHER MEDICATIONS 07/13/2009 RENITADER DOMARIA ISABELEN F 466.0 BRONCHITIS, ACUTE 07/13/2009 RENITADER DO TRENT F V58.69 LONG-TERM (CURRENT) USE OF OTHER MEDICATIONS 07/13/2009 466.0 BRONCHITIS, ACUTE 07/13/2009 V58.69 LONG-TERM ( CURRENT) USE OF OTHER MEDICATIONS 07/13/2009 466.0 BRONCHITIS, ACUTE 07/13/2009 V58.69 LONG-TERM ( CURRENT) USE OF OTHER MEDICATIONS 07/13/2009 MORENA MONTENEGRO APRN 466.0 BRONCHITIS, ACUTE 07/13/2009 MORENA MONTENEGRO APRN V58.69 LONG-TERM (CURRENT) USE OF OTHER MEDICATIONS 07/13/2009 ZULETA DO, ARTI K 466.0 BRONCHITIS, ACUTE 07/13/2009 ZULETA DO, ARTI K V58.69 LONG-TERM (CURRENT) USE OF OTHER MEDICATIONS 07/13/2009 ZULETA DO, ARTI K 466.0 BRONCHITIS, ACUTE 07/13/2009 ZULETA DO ARTI K V58.69 LONG-TERM (CURRENT) USE OF OTHER MEDICATIONS 07/13/2009 ARUN VEGA MD 466.0 BRONCHITIS, ACUTE 07/13/2009 ARUN VEGA MD V58.69 LONG-TERM (CURRENT) USE OF OTHER MEDICATIONS 07/13/2009 ZULETA DO, ARTI K 466.0 BRONCHITIS, ACUTE 07/13/2009 ZULETA DO, ARTI K V58.69 LONG-TERM (CURRENT) USE OF OTHER MEDICATIONS 07/13/2009 ZULETA DO, ARIT K 466.0 BRONCHITIS, ACUTE 07/13/2009 ZULETA DO, ARTI K V58.69 LONG-TERM (CURRENT) USE OF OTHER MEDICATIONS 07/13/2009 ZULETA DO, ARTI K 466.0 BRONCHITIS, ACUTE 07/13/2009 ZULETA DO, ARTI K V58.69 LONG-TERM (CURRENT) USE OF OTHER MEDICATIONS 07/13/2009 BOBO PEREYRA DANIEL BIENVENIDO 466.0 BRONCHITIS, ACUTE 07/13/2009 DANIEL BROUSSARD APRN V58.69 LONG-TERM (CURRENT) USE OF OTHER MEDICATIONS 07/13/2009 MORENA MONTENEGRO APRN 466.0 BRONCHITIS, ACUTE 07/13/2009 MORENA MONTENEGRO APRN V58.69 LONG-TERM (CURRENT) USE OF OTHER MEDICATIONS 07/13/2009 BOBO PEREYRA DANIEL BIENVENIDO 466.0 BRONCHITIS, ACUTE 07/13/2009 BOBO PEREYRA DANIEL BIENVENIDO V58.69 LONG-TERM (CURRENT) USE OF OTHER MEDICATIONS 07/13/2009 DEANA LEWIS 466.0 BRONCHITIS, ACUTE 07/13/2009 DEANA LEWIS V58.69 LONG-TERM (CURRENT) USE OF OTHER MEDICATIONS 07/13/2009 DEANA LEWIS 466.0 BRONCHITIS, ACUTE 07/13/2009 DEANA LEWIS V58.69 LONG-TERM (CURRENT) USE OF OTHER MEDICATIONS 08/01/2009 MORENA MONTENEGRO APRN 309.81 AN PTSD 08/01/2009 TRENT STORM DO 309.81 AN PTSD 08/01/2009 309.81 AN PTSD 08/01/2009 MORENA MONTENEGRO APRN 309.81 AN PTSD 08/01/2009 TRENT STORM DO 309.81 AN PTSD 08/01/2009 309.81 AN PTSD 08/01/2009 309.81 AN PTSD 08/01/2009 MORENA MONTENEGRO APRN 309.81 AN PTSD 08/01/2009 ZULETA DO ARTI K 309.81 AN PTSD 08/01/2009 ZULETA DO, ARTI K 309.81 AN PTSD 08/01/2009 ARUN VEGA MD 309.81 AN PTSD 08/01/2009 ZULETA DO ARTI K 309.81 AN PTSD 08/01/2009 ZULETA DO, ARTI K 309.81 AN PTSD 08/01/2009 ZULETA DO, ARTI K 309.81 AN PTSD 08/01/2009 BOBO PEREYRA DANIEL FARIA 309.81 AN PTSD 08/01/2009 MORENA MONTENEGRO APRN 309.81 AN PTSD 08/01/2009 BOBO PEREYRA DANIEL FARIA 309.81 AN PTSD 08/01/2009 DEANA LEWIS M 309.81 AN PTSD 08/01/2009 DEANA LEWIS M 309.81 AN PTSD 09/17/2009 MORENA MONTENEGRO APRN [...] PAIN IN JOINT, ANKLE AND FOOT 09/17/2009 MERLYN DOARTI K 719.47 PAIN IN JOINT, ANKLE AND FOOT 09/17/2009 ZULETA DOEVELYNA K 719.47 PAIN IN JOINT, ANKLE AND FOOT 09/17/2009 ARUN VEGA MD 719.47 PAIN IN JOINT, ANKLE AND FOOT 09/17/2009 ZULETA DOEVELYNA K 719.47 PAIN IN JOINT, ANKLE AND FOOT 09/17/2009 ZULETA DO ARTI K 719.47 PAIN IN JOINT, ANKLE AND FOOT 09/17/2009 ZULETA DO ARTI K 719.47 PAIN IN JOINT, ANKLE AND FOOT 09/17/2009 BOBO PEREYRA DANIEL BIENVENIDO 719.47 PAIN IN JOINT, ANKLE AND FOOT 09/17/2009 MORENA MONTENEGRO APRN 719.47 PAIN IN JOINT, ANKLE AND FOOT 09/17/2009 BOBO PEREYRA DANIEL BIENVENIDO 719.47 PAIN IN JOINT, ANKLE AND FOOT [...] ARTI K 296.80 MO BIPOLAR NOS 10/20/2009 DANIEL BROUSSARD APRN 296.80 MO BIPOLAR NOS 10/20/2009 MORENA MONTENEGRO APRN 296.80 MO BIPOLAR NOS 10/20/2009 DANIEL BROUSSARD APRN 296.80 MO BIPOLAR NOS 10/20/2009 DEANA LEWIS 296.80 MO BIPOLAR NOS 10/20/2009 DEANA LEWIS 296.80 MO BIPOLAR NOS 03/07/2010 MORENA MONTENEGRO APRN 401.1 HYPERTENSION, BENIGN ESSENTIAL 03/07/2010 MORENA MONTENEGRO APRN NODX NO DIAGNOSIS 03/07/2010 TRENT STORM DO 401.1 HYPERTENSION, BENIGN ESSENTIAL 03/07/2010 MARIA ISABEL STORM DOEN F NODX NO DIAGNOSIS 03/07/2010 401.1 HYPERTENSION, BENIGN ESSENTIAL 03/07/2010 NODX NO DIAGNOSIS 03/07/2010 MORENA MONTENEGRO APRN 401.1 HYPERTENSION, BENIGN ESSENTIAL 03/07/2010 MORENA MONTENEGRO APRN NODX NO DIAGNOSIS 03/07/2010 WERGILLIAN DOTRENT F 401.1 HYPERTENSION, BENIGN ESSENTIAL 03/07/2010 WERDER DOTRENT F NODX NO DIAGNOSIS 03/07/2010 401.1 HYPERTENSION, [...] DO, ARTI K NODX NO DIAGNOSIS 03/07/2010 BOBO DIAL BRUSHERDANIEL Sofia 401.1 HYPERTENSION, BENIGN ESSENTIAL 03/07/2010 DANIEL BROUSSARD APRN NODX NO DIAGNOSIS 03/07/2010 MORENA MONTENEGRO APRN 401.1 HYPERTENSION, BENIGN ESSENTIAL 03/07/2010 MORENA MONTENEGRO APRN NODX NO DIAGNOSIS 03/07/2010 BOBO DIAL BRUSHERDANIEL Sofia 401.1 HYPERTENSION, BENIGN ESSENTIAL 03/07/2010 DANIEL BROUSSARD APRN NODX NO DIAGNOSIS 03/07/2010 DEANA LEWIS 401.1 HYPERTENSION, BENIGN ESSENTIAL 03/07/2010 DEANA LEWIS NODX NO DIAGNOSIS 03/07/2010 DEANA LEWIS 401.1 HYPERTENSION, BENIGN ESSENTIAL 03/07/2010 DEANA LEWIS NODX NO DIAGNOSIS 03/14/2010 MORENA MONTENEGRO APRN [...] DO, ARTI K 486 PNEUMONIA UNSPECIFIED 03/14/2010 BOBO PEREYRA, DANIEL FARIA 486 PNEUMONIA UNSPECIFIED 03/14/2010 MORENA MONTENEGRO APRN 486 PNEUMONIA UNSPECIFIED 03/14/2010 BOBO PEREYRA, DANIEL FARIA 486 PNEUMONIA UNSPECIFIED 03/14/2010 DEANA LEWIS 486 PNEUMONIA UNSPECIFIED 03/14/2010 DEANA LEWIS 486 PNEUMONIA UNSPECIFIED 04/24/2010 MORENA MONTENEGRO APRN 272.0 HYPERCHOLESTEROLEMIA PURE 04/24/2010 WERDER DO, TRENT F 272.0 HYPERCHOLESTEROLEMIA PURE 04/24/2010 272.0 HYPERCHOLESTEROLEMIA PURE 04/24/2010 MORENA MONTENEGRO APRN 272.0 HYPERCHOLESTEROLEMIA PURE 04/24/2010 WERDER DO, TRENT F 272.0 HYPERCHOLESTEROLEMIA PURE 04/24/2010 272.0 HYPERCHOLESTEROLEMIA PURE 04/24/2010 272.0 HYPERCHOLESTEROLEMIA PURE 04/24/2010 MORENA MONTENEGRO APRN 272.0 HYPERCHOLESTEROLEMIA PURE 04/24/2010 ZULETA DO, ARTI K 272.0 HYPERCHOLESTEROLEMIA PURE 04/24/2010 ZULETA DO, ARTI K 272.0 HYPERCHOLESTEROLEMIA PURE 04/24/2010 ARUN VEGA MD 272.0 HYPERCHOLESTEROLEMIA PURE 04/24/2010 ZULETA DO, ARTI K 272.0 HYPERCHOLESTEROLEMIA PURE 04/24/2010 ZULETA DO, ARTI K 272.0 HYPERCHOLESTEROLEMIA PURE 04/24/2010 ZULETA DO, ARTI K 272.0 HYPERCHOLESTEROLEMIA PURE 04/24/2010 BROUSSARDZACARIAS MITCHELLN, DANIEL BIENVENIDO 272.0 HYPERCHOLESTEROLEMIA PURE 04/24/2010 MORENA MONTENEGRO APRN 272.0 HYPERCHOLESTEROLEMIA PURE 04/24/2010 BROUSSARD DIAL BRUSHER, DANIEL BIENVENIDO 272.0 HYPERCHOLESTEROLEMIA PURE 04/24/2010 ROSI KESSLER, DEANA M 272.0 HYPERCHOLESTEROLEMIA PURE 04/24/2010 ROSI KESSLER, DEANA M 272.0 HYPERCHOLESTEROLEMIA PURE 10/31/2010 MORENA MONTENEGRO APRN 564.00 UNSPECIFIED CONSTIPATION 10/31/2010 TRENT STORM DO F 564.00 UNSPECIFIED CONSTIPATION 10/31/2010 564.00 Unspecified Constipation 10/31/2010 MORENA MONTENEGRO APRN 564.00 Unspecified Constipation 10/31/2010 TRENT STORM DO F 564.00 Unspecified Constipation 10/31/2010 564.00 Unspecified Constipation 10/31/2010 564.00 Unspecified Constipation 10/31/2010 MORENA MONTENEGRO APRN 564.00 UNSPECIFIED CONSTIPATION 10/31/2010 ZULETA DO, ARTI K 564.00 Unspecified Constipation 10/31/2010 ZULETA DO, ARTI K 564.00 Unspecified Constipation 10/31/2010 GARY KHAN, ARUN 564.00 Unspecified Constipation 10/31/2010 ZULETA DO, ARTI K 564.00 Unspecified Constipation 10/31/2010 ZULETA DO, ARTI K 564.00 Unspecified Constipation 10/31/2010 ZULETA DO, ARTI K 564.00 Unspecified Constipation 10/31/2010 BOBO PEREYRA DANIEL BIENVENIDO 564.00 Unspecified Constipation 10/31/2010 MORENA MONTENEGRO APRN 564.00 Unspecified Constipation 10/31/2010 BOBO PEREYRA DANIEL BIENVENIDO 564.00 Unspecified Constipation 10/31/2010 ROSI KESSLER, DEANA M 564.00 Unspecified Constipation 10/31/2010 ROSI KESSLER, DEANA M 564.00 Unspecified Constipation 05/09/2011 MORENA MONTENEGRO APRN 079.99 VIRAL SYNDROME 05/09/2011 TRENT STORM DO F 079.99 VIRAL SYNDROME 05/09/2011 079.99 VIRAL SYNDROME 05/09/2011 MORENA MONTENEGRO APRN 079.99 VIRAL SYNDROME 05/09/2011 TRENT STORM DO F 079.99 VIRAL SYNDROME 05/09/2011 079.99 VIRAL SYNDROME [...] DO, ARTI K 079.99 VIRAL SYNDROME 05/09/2011 DANIEL BROUSSARD APRN 079.99 VIRAL SYNDROME 05/09/2011 MORENA MONTENEGRO APRN 079.99 VIRAL SYNDROME 05/09/2011 DANIEL BROUSSARD APRN 079.99 VIRAL SYNDROME 05/09/2011 ROSI MANAGER WIND, DEANA M 079.99 VIRAL SYNDROME 05/09/2011 ROSI MANAGER WIND, DEANA M 079.99 VIRAL SYNDROME 05/12/2011 MORENA MONTENEGRO APRN 465.9 UPPER RESPIRATORY INFECTION 05/12/2011 TRENT STORM DO F 465.9 UPPER RESPIRATORY INFECTION 05/12/2011 465.9 UPPER RESPIRATORY INFECTION 05/12/2011 MORENA MONTENEGRO APRN 465.9 UPPER RESPIRATORY INFECTION 05/12/2011 TRENT STORM DO F 465.9 UPPER RESPIRATORY INFECTION 05/12/2011 465.9 UPPER [...] UPPER RESPIRATORY INFECTION 05/12/2011 BOBO PEREYRA DANIEL RADERH 465.9 UPPER RESPIRATORY INFECTION 05/12/2011 MORENA MONTENEGRO APRN 465.9 UPPER RESPIRATORY INFECTION 05/12/2011 BOBO PEREYRA DANIEL FARIA 465.9 UPPER RESPIRATORY INFECTION 05/12/2011 DEANA LEWIS M 465.9 UPPER RESPIRATORY INFECTION 05/12/2011 DEANA LEWIS M 465.9 UPPER RESPIRATORY INFECTION 05/30/2011 MORENA MONTENEGRO APRN 787.02 NAUSEA ALONE 05/30/2011 TRENT STORM DO F 787.02 NAUSEA ALONE 05/30/2011 787.02 NAUSEA ALONE 05/30/2011 MORENA MONTENEGRO APRN 787.02 NAUSEA ALONE 05/30/2011 TRENT STORM DO F 787.02 NAUSEA ALONE 05/30/2011 787.02 NAUSEA ALONE 05/30/2011 787.02 NAUSEA ALONE 05/30/2011 MORENA MONTENEGRO APRN 787.02 NAUSEA ALONE 05/30/2011 ZULETA EVELYN CURRANA K 787.02 NAUSEA ALONE 05/30/2011 ZULETA EVELYN CURRANA K 787.02 NAUSEA ALONE 05/30/2011 ARUN VEGA MD 787.02 NAUSEA ALONE 05/30/2011 ZULETA DO ARTI K 787.02 NAUSEA ALONE 05/30/2011 ZULETA DO ARTI K 787.02 NAUSEA ALONE 05/30/2011 ZULETA DO ARTI K 787.02 NAUSEA ALONE 05/30/2011 BOBO PEREYRA DANIEL BIENVENIDO 787.02 NAUSEA ALONE 05/30/2011 MORENA MONTENEGRO APRN 787.02 NAUSEA ALONE 05/30/2011 BOBO PEREYRA DANIEL BIENVENIDO 787.02 NAUSEA ALONE 05/30/2011 DEANA LEWIS 787.02 NAUSEA ALONE 05/30/2011 DEANA LEWIS M 787.02 NAUSEA ALONE 06/06/2011 MORENA MONTENEGRO APRN 216.9 MOLE/NEVUS - SITE UNSPECIFIED 06/06/2011 TRENT STORM DO F 216.9 MOLE/NEVUS - SITE UNSPECIFIED 06/06/2011 216.9 MOLE/NEVUS - SITE UNSPECIFIED 06/06/2011 MORENA MONTENEGRO APRN 216.9 Mole/nevus - Site Unspecified 06/06/2011 TRENT STORM DO F 216.9 Mole/nevus - Site Unspecified 06/06/2011 [...] - Site Unspecified 06/06/2011 BOBO PEREYRA DANIEL RADERH 216.9 Mole/nevus - Site Unspecified 06/06/2011 MORENA MONTENEGRO APRN 216.9 Mole/nevus - Site Unspecified 06/06/2011 BOBO PEREYRA DANIEL FARIA 216.9 Mole/nevus - Site Unspecified 06/06/2011 ROSI MANAGER WIND, DEANA M 216.9 Mole/nevus - Site Unspecified 06/06/2011 ROSI MANAGER WIND, DEANA M 216.9 Mole/nevus - Site Unspecified 06/19/2011 MORENA MONTENEGRO APRN 787.02 Nausea Alone 06/19/2011 TRENT STORM DO 787.02 Nausea Alone 06/19/2011 787.02 Nausea Alone 06/19/2011 MORENA MONTENEGRO APRN 787.02 Nausea Alone 06/19/2011 TRENT STORM DO 787.02 Nausea Alone 06/19/2011 787.02 Nausea Alone 06/19/2011 787.02 Nausea Alone 06/19/2011 MORENA MONTENEGRO APRN 787.02 Nausea Alone 06/19/2011 MERLYN DO ARTI K 787.02 Nausea Alone 06/19/2011 ZULETA DO ARTI K 787.02 Nausea Alone 06/19/2011 ARUN VEGA MD 787.02 Nausea Alone 06/19/2011 ZULETA EVELYN CURRANA K 787.02 Nausea Alone 06/19/2011 ZULETA DO, [...] 535.50 Gastritis Unspec 07/25/2011 TRENT STORM DO F 535.50 Gastritis Unspec 07/25/2011 535.50 Gastritis Unspec [...] DO, ARTI K 535.50 Gastritis Unspec 07/25/2011 DANIEL BROUSSARD APRN 535.50 Gastritis Unspec 07/25/2011 MORENA MONTENEGRO APRN 535.50 Gastritis Unspec 07/25/2011 DANIEL BROUSSARD APRN 535.50 Gastritis Unspec 07/25/2011 DEANA LEWIS M 535.50 Gastritis Unspec 07/25/2011 DEANA LEWIS M 535.50 Gastritis Unspec 07/30/2011 MORENA MONTENEGRO APRN 706.2 SEBACEOUS CYST 07/30/2011 TRENT STORM DO F 706.2 SEBACEOUS CYST 07/30/2011 706.2 SEBACEOUS CYST [...] ARTI K 706.2 SEBACEOUS CYST 07/30/2011 BOBO PEREYRA DANIEL BIENVENIDO 706.2 SEBACEOUS CYST 07/30/2011 MORENA MONTENEGRO APRN 706.2 SEBACEOUS CYST 07/30/2011 DANIEL BROUSSARD APRN 706.2 SEBACEOUS CYST 07/30/2011 DEANA LEWIS 706.2 [...] V58.32 ENCOUNTER FOR REMOVAL OF SUTURES 08/06/2011 ARTI ZULETA DO V58.32 ENCOUNTER FOR REMOVAL OF SUTURES 08/06/2011 EVELYN ZULETA DOA K V58.32 ENCOUNTER FOR REMOVAL OF SUTURES 08/06/2011 ARUN VEGA MD V58.32 ENCOUNTER FOR REMOVAL OF SUTURES 08/06/2011 ZULETA DOEVELYNA K V58.32 ENCOUNTER FOR REMOVAL OF SUTURES 08/06/2011 ZULETA DO ARTI K V58.32 ENCOUNTER FOR REMOVAL OF SUTURES 08/06/2011 MERLYN CURRAN ARTI K V58.32 ENCOUNTER FOR REMOVAL OF SUTURES 08/06/2011 DANIEL BROUSSARD APRN V58.32 ENCOUNTER FOR REMOVAL OF SUTURES 08/06/2011 MORENA MONTENEGRO APRN V58.32 ENCOUNTER FOR REMOVAL OF SUTURES 08/06/2011 DANIEL BROUSSARD APRN V58.32 ENCOUNTER FOR REMOVAL OF SUTURES [...] MONTENEGRO APRN 787.01 NAUSEA WITH VOMITING 08/20/2011 ZULETA DO, ARTI K 787.01 Nausea [...] 787.01 Nausea With Vomiting 08/20/2011 DEANA LEWIS M 787.01 Nausea With Vomiting 08/20/2011 DEANA LEWIS M 787.01 Nausea With Vomiting 08/28/2011 MORENA MONTENEGRO APRN 380.4 IMPACTED CERUMEN 08/28/2011 TRENT STORM DO 380.4 IMPACTED CERUMEN 08/28/2011 380.4 Impacted Cerumen 08/28/2011 MORENA MONTENEGRO APRN 380.4 Impacted Cerumen 08/28/2011 TRENT STORM DO 380.4 Impacted Cerumen 08/28/2011 380.4 Impacted Cerumen 08/28/2011 380.4 Impacted Cerumen 08/28/2011 MORENA MONTENEGRO APRN 380.4 IMPACTED CERUMEN 08/28/2011 ZULETA DO, ARTI K 380.4 Impacted Cerumen 08/28/2011 ZULETA DO, ARTI K 380.4 Impacted Cerumen 08/28/2011 ARUN VEGA MD 380.4 Impacted Cerumen 08/28/2011 ZULETA DO, ARTI K 380.4 Impacted Cerumen 08/28/2011 ZULETA DO, ARTI K 380.4 Impacted Cerumen 08/28/2011 MERLYN DO, ARTI K 380.4 Impacted Cerumen 08/28/2011 BOBO PEREYRA DANIEL FARIA 380.4 Impacted Cerumen 08/28/2011 MORENA MONTENEGRO APRN 380.4 Impacted Cerumen 08/28/2011 BOBO PEREYRA DANIEL FARIA 380.4 Impacted Cerumen 08/28/2011 ROSI KESSLER, DEANA M 380.4 Impacted Cerumen 08/28/2011 ROSI MANAGER WIND, DEANA M 380.4 Impacted Cerumen 04/21/2012 MORENA MONTENEGRO APRN 486 PNEUMONIA UNSPECIFIED 04/21/2012 TRENT STORM DO 486 PNEUMONIA UNSPECIFIED 04/21/2012 486 Pneumonia Unspecified 04/21/2012 MORENA MONTENEGRO APRN 486 Pneumonia Unspecified 04/21/2012 TRENT STORM DO 486 Pneumonia Unspecified 04/21/2012 486 Pneumonia Unspecified 04/21/2012 486 Pneumonia Unspecified 04/21/2012 OMRENA MONTENEGRO APRN 486 PNEUMONIA UNSPECIFIED 04/21/2012 ZULETA DO, ARTI K 486 Pneumonia Unspecified 04/21/2012 ZULETA DO, ARTI K 486 Pneumonia Unspecified 04/21/2012 ARUN VEGA MD 486 Pneumonia Unspecified 04/21/2012 ZULETA DO, ARTI K 486 Pneumonia Unspecified 04/21/2012 ZULETA DO, ARTI K 486 Pneumonia Unspecified 04/21/2012 ZULETA DO, ARTI K 486 Pneumonia Unspecified 04/21/2012 BOBO PEREYRA DANIEL FARIA 486 Pneumonia Unspecified 04/21/2012 MORENA MONTENEGRO APRN 486 Pneumonia Unspecified 04/21/2012 BOBO PEREYRA DANIEL FARIA 486 Pneumonia Unspecified 04/21/2012 ROSI KESSLER, DEANA M 486 Pneumonia Unspecified 04/21/2012 ROSI KESSLER, DEANA M 486 Pneumonia Unspecified 05/14/2012 OMRENA MONTENEGRO APRN V04.81 FLU DX (3 YRS [...] Dx (3 Yrs And Above, Im) 05/14/2012 ZULETA DO, ARTI K V04.81 Flu Dx (3 Yrs And Above, Im) 05/14/2012 ZULETA DO, ARTI K V04.81 Flu Dx (3 Yrs And Above, Im) 05/14/2012 ARUN VEGA MD V04.81 Flu Dx (3 Yrs And Above, Im) 05/14/2012 ZULETA DO, ARTI K V04.81 Flu Dx (3 Yrs And Above, Im) 05/14/2012 ZULETA DO, ARTI K V04.81 Flu Dx (3 Yrs And Above, Im) 05/14/2012 ZULETA DO, ARTI K V04.81 Flu Dx (3 Yrs And Above, Im) 05/14/2012 DANIEL BROUSSARD APRN V04.81 Flu Dx (3 Yrs And Above, Im) 05/14/2012 MORENA MONTENEGRO APRN V04.81 Flu Dx (3 Yrs And Above, Im) 05/14/2012 DANIEL BROUSSARD APRN V04.81 Flu Dx (3 Yrs And Above, Im) 05/14/2012 DEANA LEWIS V04.81 Flu Dx (3 Yrs And Above, Im) 05/14/2012 DEANA LEWIS V04.81 Flu Dx (3 Yrs And Above, Im) 08/13/2012 305.1 TOBACCO ABUSE 08/13/2012 466.0 BRONCHITIS, ACUTE 08/13/2012 V65.42 COUNSELING - SMOKING CESSATION 08/13/2012 MORENA MONTENEGRO APRN 305.1 TOBACCO ABUSE 08/13/2012 MORENA MONTENEGRO APRN 466.0 Bronchitis, Acute 08/13/2012 MORENA MONTENEGRO APRN V65.42 COUNSELING - SMOKING CESSATION 08/13/2012 TRENT STORM DO 305.1 TOBACCO ABUSE 08/13/2012 TRENT STORM DO 466.0 Bronchitis, Acute 08/13/2012 TRENT STORM DO V65.42 COUNSELING - SMOKING CESSATION 08/13/2012 305.1 [...] K V65.42 COUNSELING - SMOKING CESSATION 08/13/2012 DANIEL BROUSSARD APRN 305.1 TOBACCO ABUSE 08/13/2012 DANIEL BROUSSARD APRN 466.0 Bronchitis, Acute 08/13/2012 DANIEL BROUSSARD APRN V65.42 COUNSELING - SMOKING CESSATION 08/13/2012 MORENA MONTENEGRO APRN 305.1 TOBACCO ABUSE 08/13/2012 MORENA MONTENEGRO APRN 466.0 Bronchitis, Acute 08/13/2012 MORENA MONTENEGRO APRN V65.42 COUNSELING - SMOKING CESSATION 08/13/2012 DANIEL BROUSSARD APRN 305.1 TOBACCO ABUSE 08/13/2012 DANIEL BROUSSARD APRN 466.0 Bronchitis, Acute 08/13/2012 BOBO PEREYRA DANIEL BIENVENIDO V65.42 COUNSELING - SMOKING CESSATION 08/13/2012 DEANA LEWIS M 305.1 TOBACCO ABUSE 08/13/2012 DEANA LEWIS M 466.0 Bronchitis, Acute 08/13/2012 DEANA LEWIS V65.42 COUNSELING - SMOKING CESSATION 08/13/2012 DEANA LEWIS M 305.1 TOBACCO ABUSE 08/13/2012 DEANA LEWIS 466.0 Bronchitis, Acute 08/13/2012 DEANA LEWIS V65.42 COUNSELING - SMOKING CESSATION 02/25/2013 ZULETA DO ARTI K V03.82 PPV23 (PNEUMOVAX) DX 02/25/2013 ZULETA DO, ARTI K V03.82 PPV23 (PNEUMOVAX) DX 02/25/2013 ARUN VEGA MD V03.82 PPV23 (PNEUMOVAX) DX 02/25/2013 ZULETA DO ARTI K V03.82 PPV23 (PNEUMOVAX) DX 02/25/2013 ZULETA DO, ARTI K V03.82 PPV23 (PNEUMOVAX) DX 02/25/2013 ZULETA DO, ARTI K V03.82 PPV23 (PNEUMOVAX) DX 02/25/2013 DANIEL BROUSSARD APRN V03.82 PPV23 (PNEUMOVAX) DX 02/25/2013 MORENA MONTENEGRO APRN V03.82 PPV23 (PNEUMOVAX) DX 02/25/2013 DANIEL BROUSSARD APRN V03.82 PPV23 (PNEUMOVAX) DX 02/25/2013 DEANA LEWIS V03.82 PPV23 (PNEUMOVAX) DX 02/25/2013 DEANA LEWIS V03.82 PPV23 (PNEUMOVAX) DX 06/04/2013 ZULETA DO, ARTI K 462 ACUTE PHARYNGITIS 06/04/2013 ZULETA DO, ARTI K 786.2 COUGH 06/04/2013 ZULETA DO, ARTI K 462 ACUTE PHARYNGITIS 06/04/2013 ZULETA DO, ARTI K 786.2 COUGH 06/04/2013 DANIEL BROUSSARD APRN 462 ACUTE PHARYNGITIS 06/04/2013 DANIEL BROUSSARD APRN 786.2 COUGH 06/04/2013 MONI PEREYRA, MORENA T 462 ACUTE PHARYNGITIS 06/04/2013 MONI MITCHELLN, MORENA T 786.2 COUGH 06/04/2013 BOBO MITCHELLN, DANIEL FARIA 462 ACUTE PHARYNGITIS 06/04/2013 BOBO MITCHELLN, DANIEL FARIA 786.2 COUGH 06/04/2013 ROSI MANAGER WIND, DEANA M 462 ACUTE PHARYNGITIS 06/04/2013 ROSI MANAGER WIND, DEANA M 786.2 COUGH 06/04/2013 ROSI MANAGER WIND, DEANA M 462 ACUTE PHARYNGITIS 06/04/2013 ROSI MANAGER WIND, DEANA M 786.2 COUGH 10/02/2013 ZULETA DO, ARTI K 465.9 UPPER RESPIRATORY INFECTION 10/02/2013 ZULETA DO, ARTI K 787.02 NAUSEA ALONE 10/02/2013 BOBO MITCHELLN, DANIEL FARIA 465.9 UPPER RESPIRATORY INFECTION 10/02/2013 BOBO MITCHELLN, DANIEL FARIA 787.02 NAUSEA ALONE 10/02/2013 MONI MITCHELLN, MORENA T 465.9 UPPER RESPIRATORY INFECTION 10/02/2013 MONI PEREYRA, MORENA T 787.02 NAUSEA ALONE 10/02/2013 BROUSSARD DIAL BRUSHER, DANIEL FARIA 465.9 UPPER RESPIRATORY INFECTION 10/02/2013 BROUSSARD DIAL BRUSHER, DANIEL FARIA 787.02 NAUSEA ALONE 10/02/2013 ROSI MANAGER WIND, DEANA M 465.9 UPPER RESPIRATORY INFECTION 10/02/2013 ROSI MANAGER WIND, DEANA M 787.02 NAUSEA ALONE 10/02/2013 ROSI MANAGER WIND, DEANA M 465.9 UPPER RESPIRATORY INFECTION 10/02/2013 ROSI MANAGER WIND, DEANA M 787.02 NAUSEA ALONE 12/29/2015 GARY KHAN, ARUN Beltran Ot F03.90 UNSPECIFIED DEMENTIA WITHOUT BEHAVIORAL 01/06/2016 GARY KHAN, ARUN Beltran Ot F03.90 UNSPECIFIED DEMENTIA WITHOUT BEHAVIORAL 10/05/2016 ARUN VEGA MD Ot F03.90 UNSPECIFIED DEMENTIA WITHOUT BEHAVIORAL 12/24/2016 ARUN VEGA MD Ot F03.90 UNSPECIFIED DEMENTIA WITHOUT BEHAVIORAL 07/29/2017 ARUN VEGA MD Ot F03.90 UNSPECIFIED DEMENTIA WITHOUT BEHAVIORAL 07/29/2017 KELSIE KHAN, MELISSA Morgan Ot E86.1 HYPOVOLEMIA 07/29/2017 KELSIE KHAN, MELISSA Morgan Ot F17.200 NICOTINE DEPENDENCE, UNSPECIFIED, UNCOMP 07/29/2017 MELISSA IGLESIAS MD Ot K62.5 HEMORRHAGE OF ANUS AND RECTUM 07/29/2017 MELISSA IGLESIAS MD Ot K62.89 OTHER SPECIFIED DISEASES OF ANUS AND REC 07/29/2017 MELISSA IGLESIAS MD Ot Z88.5 ALLERGY STATUS TO NARCOTIC AGENT STATUS 07/30/2017 MELISSA IGLESIAS MD Ot E86.1 HYPOVOLEMIA 07/30/2017 MELISSA IGLESIAS MD Ot F17.200 NICOTINE DEPENDENCE, UNSPECIFIED, UNCOMP 07/30/2017 MELISSA IGLESIAS MD Ot K62.5 HEMORRHAGE OF ANUS AND RECTUM 07/30/2017 MELISSA IGLESIAS MD Ot K62.89 OTHER SPECIFIED DISEASES OF ANUS AND REC 07/30/2017 MELISSA IGLESIAS MD Ot Z88.5 ALLERGY STATUS TO NARCOTIC AGENT STATUS 07/30/2017 GARY KHAN, ARUN Beltran Ot F03.90 UNSPECIFIED DEMENTIA WITHOUT BEHAVIORAL [facility]/02[facility] E78.00 PURE HYPERCHOLESTEROLEMIA, UNSPECIFIED 08/02/2017 [facility] Ot E86.0 DEHYDRATION 08/02/2017 [facility] Ot F03.90 UNSPECIFIED DEMENTIA WITHOUT BEHAVIORAL 08/02/2017 [facility] Ot F17.210 NICOTINE DEPENDENCE, CIGARETTES, UNCOMPL 08/02/2017 MALGORZATA COON DO Ot F32.9 MAJOR DEPRESSIVE DISORDER, SINGLE EPISOD 08/02/2017 [facility] Ot F41.9 ANXIETY DISORDER, UNSPECIFIED 08/02/2017 MALGORZATA COON DO Ot I10 ESSENTIAL (PRIMARY) HYPERTENSION 08/02/2017 [facility]ALG[facility] Kim DO Ot K21.9 GASTRO-ESOPHAGEAL REFLUX DISEASE WITHOUT 08/02/2017 [facility] MALGORZATA CURRAN Ot K62.5 HEMORRHAGE OF ANUS AND RECTUM 08/02/2017 [place] DO, MALGORZATA E Ot R11.2 NAUSEA WITH VOMITING, UNSPECIFIED 08/02/2017 [facility] DO, MALGORZATA E Ot D12.8 BENIGN NEOPLASM OF RECTUM 08/02/2017 [facility] MALGORZ[facility] E Ot E78.00 PURE HYPERCHOLESTEROLEMIA, UNSPECIFIED 08/02/2017 [facility] DO, MALGORZATA E Ot E78.5 HYPERLIPIDEMIA, UNSPECIFIED 08/02/2017 [facility] DO, MALGORZATA E Ot E86.0 DEHYDRATION 08/02/2017 [facility] DO, MALGORZATA E Ot E87.6 HYPOKALEMIA 08/02/2017 [facility] DO, MALGORZATA E Ot F03.90 UNSPECIFIED DEMENTIA WITHOUT BEHAVIORAL 08/02/2017 [facility] DO, MALGORZATA E Ot F17.210 NICOTINE DEPENDENCE, CIGARETTES, UNCOMPL 08/02/2017 [facility] DO MALGORZATA E Ot F32.9 MAJOR DEPRESSIVE DISORDER, SINGLE EPISOD 08/02/2017 [facility] DO MALGORZATA E Ot F41.9 ANXIETY DISORDER, UNSPECIFIED 08/02/2017 [facility] DO MALGORZATA E Ot I10 ESSENTIAL (PRIMARY) HYPERTENSION 08/02/2017 [facility] DO MALGORZATA E Ot K21.9 GASTRO-ESOPHAGEAL REFLUX DISEASE WITHOUT 08/02/2017 [facility] DO MALGORZATA E Ot K25.4 CHRONIC OR UNSPECIFIED GASTRIC ULCER WIT 08/02/2017 [facility] DO MALGORZATA E Ot K55.9 VASCULAR DISORDER OF INTESTINE, UNSPECIF 08/02/2017 [facility] DO MALGORZATA E Ot K62.5 HEMORRHAGE OF ANUS AND RECTUM 08/02/2017 [facility] DO MALGORZATA E Ot R11.2 NAUSEA WITH VOMITING, UNSPECIFIED 08/07/2017 GARY KHAN, ARUN Beltran Ot F03.90 UNSPECIFIED DEMENTIA WITHOUT BEHAVIORAL 08/07/2017 TADEO KHAN, GANGA Prescott Ot K92.1 MELENA 08/07/2017 TADEO KHAN, GANGA Prescott Ot Z01.818 ENCOUNTER FOR OTHER PREPROCEDURAL EXAMIN 08/14/2017 CARO CAMARA Ot I82.4Z2 AC EMBLSM AND [facility] DEEP VEINS OF 08/14/2017 CARO CAMARA [employer] Ot I82.4Z2 AC EMBLSM AND THOMBOS UNSP DEEP VEINS OF 08/19/2017 GARY KHAN, ARUN Beltran Ot F03.90 UNSPECIFIED DEMENTIA WITHOUT BEHAVIORAL 08/19/2017 TADEO KHAN, GANGA Prescott Ot K92.1 MELENA 08/19/2017 TADEO KHAN, GANGA Prescott Ot Z01.818 ENCOUNTER FOR OTHER PREPROCEDURAL EXAMIN 08/19/2017 CARO CAMARA [employer] SUPER[employer] Ot I82.4Z2 AC EMBLSM AND THOMBOS UNSP DEEP VEINS OF 08/19/2017 ARUN VEGA MD Ot F03.90 UNSPECIFIED DEMENTIA WITHOUT BEHAVIORAL 08/19/2017 TADEO KHAN, GANGA Perscott Ot K92.1 MELENA 08/19/2017 TADEO KHAN, GANGA Prescott Ot Z01.818 ENCOUNTER FOR OTHER PREPROCEDURAL EXAMIN 08/19/2017 CARO CAMARA [employer]PER[employer] Ot I82.4Z2 AC EMBLSM AND THOMBOS UNSP DEEP VEINS OF 08/19/2017 KELSIE KHAN, MELISSA Morgan Ot E78.00 PURE HYPERCHOLESTEROLEMIA, UNSPECIFIED 08/19/2017 MELISSA IGLESIAS MD Ot F03.90 UNSPECIFIED DEMENTIA WITHOUT BEHAVIORAL 08/19/2017 MELISSA IGLESIAS MD Ot F17.210 NICOTINE DEPENDENCE, CIGARETTES, UNCOMPL 08/19/2017 MELISSA IGLESIAS MD Ot F32.9 MAJOR DEPRESSIVE DISORDER, SINGLE EPISOD 08/19/2017 MELISSA ILGESIAS MD Ot F41.9 ANXIETY DISORDER, UNSPECIFIED 08/19/2017 MELISSA IGLESIAS MD Ot I10 ESSENTIAL (PRIMARY) HYPERTENSION 08/19/2017 MELISSA IGLESIAS MD Ot I82.402 ACUTE EMBOLISM AND THOMBOS UNSP DEEP VEI 08/19/2017 MELISSA IGLESIAS MD Ot K21.9 GASTRO-ESOPHAGEAL REFLUX DISEASE WITHOUT 08/19/2017 MELISSA IGLESIAS MD Ot L03.116 CELLULITIS OF LEFT LOWER LIMB 08/19/2017 MELISSA IGLESIAS MD Ot M79.89 OTHER SPECIFIED SOFT TISSUE DISORDERS 08/19/2017 MELISSA IGLESIAS MD Ot R19.5 OTHER FECAL ABNORMALITIES 08/19/2017 MELISSA IGLESIAS MD, Ot Z79.01 RESIDENTIAL (CURRENT) USE OF ANTICOAGULANT 08/19/2017 MELISSA IGLESIAS MD Ot Z87.19 PERSONAL HISTORY OF OTHER DISEASES OF TH 08/19/2017 MELISSA IGLESIAS MD, Ot Z87.59 PERSONAL HISTORY OF COMP OF PREG, CHLDBR 08/19/2017 MELISSA IGLESIAS MD Ot Z88.5 ALLERGY STATUS TO NARCOTIC AGENT STATUS 08/19/2017 MELISSA IGLESIAS MD, Ot Z88.6 ALLERGY STATUS TO ANALGESIC AGENT STATUS 08/19/2017 MELISSA IGLESIAS MD Ot Z90.49 ACQUIRED ABSENCE OF OTHER SPECIFIED PART 08/19/2017 MELISSA IGLESIAS MD Ot Z90.710 ACQUIRED ABSENCE OF BOTH CERVIX AND UTER 08/21/2017 MELISSA IGLESIAS MD Ot E78.00 PURE HYPERCHOLESTEROLEMIA, UNSPECIFIED 08/21/2017 MELISSA IGLESIAS MD Ot F03.90 UNSPECIFIED DEMENTIA WITHOUT BEHAVIORAL 08/21/2017 MELISSA IGLESIAS MD Ot F17.210 NICOTINE DEPENDENCE, CIGARETTES, UNCOMPL 08/21/2017 MELISSA IGLESIAS MD Ot F32.9 MAJOR DEPRESSIVE DISORDER, SINGLE EPISOD 08/21/2017 MELISSA IGLESIAS MD, Ot F41.9 ANXIETY DISORDER, UNSPECIFIED 08/21/2017 MELISSA IGLESIAS MD Ot I10 ESSENTIAL (PRIMARY) HYPERTENSION 08/21/2017 MELISSA IGLESIAS MD Ot I82.402 ACUTE EMBOLISM AND THOMBOS UNSP DEEP VEI 08/21/2017 MELISSA IGLESIAS MD Ot K21.9 GASTRO-ESOPHAGEAL REFLUX DISEASE WITHOUT 08/21/2017 MELISSA IGLESIAS MD Ot L03.116 CELLULITIS OF LEFT LOWER LIMB 08/21/2017 MELISSA IGLESIAS MD Ot M79.89 OTHER SPECIFIED SOFT TISSUE DISORDERS 08/21/2017 MELISSA IGLESIAS MD Ot R19.5 OTHER FECAL ABNORMALITIES 08/21/2017 MELISSA IGLESIAS MD, Ot 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.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 MANAGER (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) USE OF ANTICOAGULANT 08/21/2017 MELISSA IGLESIAS MD, Ot Z87.19 PERSONAL HISTORY OF OTHER DISEASES OF TH 08/21/2017 MELISSA IGLESIAS MD, Ot Z87.59 PERSONAL HISTORY OF COMP OF PREG, CHLDBR 08/21/2017 MELISSA IGLESIAS MD, Ot Z88.5 ALLERGY STATUS TO NARCOTIC AGENT STATUS 08/21/2017 MELISSA IGLESIAS MD, Ot Z88.6 ALLERGY STATUS TO ANALGESIC AGENT STATUS 08/21/2017 MELISSA IGLESIAS MD, Ot Z90.49 ACQUIRED ABSENCE OF OTHER SPECIFIED PART 08/21/2017 MELISSA IGLESIAS MD, Ot Z90.710 ACQUIRED ABSENCE OF BOTH CERVIX AND UTER 09/10/2017 GANGA PIEDRA MD, Ot K55.9 VASCULAR DISORDER OF INTESTINE, UNSPECIF 09/10/2017 GANGA PIEDRA MD, Ot K62.5 HEMORRHAGE OF ANUS AND RECTUM 09/10/2017 GANGA PIEDRA MD Ot Z01.818 ENCOUNTER FOR OTHER PREPROCEDURAL EXAMIN 09/13/2017 GANGA PIEDRA MD, Ot K55.9 VASCULAR DISORDER OF INTESTINE, UNSPECIF 09/13/2017 GANGA PIEDRA MD, Ot K62.5 HEMORRHAGE OF ANUS AND RECTUM 09/13/2017 GANGA PIEDRA MD Ot Z01.818 ENCOUNTER FOR OTHER PREPROCEDURAL EXAMIN Procedures Code Description [place] [address] ROUTINE VENIPUNCTURE 08/25/2012 63810 CBC 08/25/2012 98118 LIPID PANEL 08/25/2012 24806 CMP 08/25/2012 [id number] GFR CALC (RESULT ONLY) 08/25/2012 88885 GLUCOSE FINGER STICK 12/09/2012 38114 ROUTINE VENIPUNCTURE 05/13/2013 68670 CMP 05/13/2013 21715 ROUTINE VENIPUNCTURE 10/01/2013 95141 CBC 10/01/2013 78631 CMP 10/01/2013 78231 LIPID PANEL 10/01/2013 [id number] GFR CALC (RESULT ONLY) 10/01/2013 21605 TSH 10/01/2013 38638 OXIMETRY 10/02/2013 [id number] EXCISION OF DESCENDING COLON, ENDO, DIAG 08/01/2017 [id number] EXCISION OF RECTUM, ENDO, DIAGN 08/01/2017 Results Test Result Range CBC With Differential/Platelet - 02/22/17 08:59 WBC 5.9 x10E3/uL 3.4-10.8 RBC 5.05 x10E6/uL 3.77-5.28 Hemoglobin 16.5 g/dL 11.1-15.9 Hematocrit 49.2 % 34.0-46.6 MCV 97 fL 79-97 MCH 32.7 pg 26.6-33.0 MCHC 33.5 g/dL 31.5-35.7 RDW 15.4 % 12.3-15.4 Platelets 198 x10E3/uL 150-379 Neutrophils 55 % Lymphs 30 % Monocytes 13 % Eos 2 % Basos 0 % Neutrophils (Absolute) 3.3 x10E3/uL 1.4-7.0 Lymphs (Absolute) 1.7 x10E3/uL 0.7-3.1 Monocytes(Absolute) 0.8 x10E3/uL 0.1-0.9 Eos (Absolute) 0.1 x10E3/uL 0.0-0.4 Baso (Absolute) 0.0 x10E3/uL 0.0-0.2 Immature Granulocytes 0 % Immature Grans (Abs) 0.0 x10E3/uL 0.0-0.1 Comp. Metabolic Panel (14) - 02/22/17 08:59 Glucose, Serum 97 mg/dL 65-99 BUN 6 mg/dL 8-27 Creatinine, Serum 0.87 mg/dL 0.57-1.00 eGFR If NonAfricn Am 71 mL/min/1.73 >59 eGFR If Africn Am 81 mL/min/1.73 >59 BUN/Creatinine Ratio 7 12-28 Sodium, Serum 147 mmol/L 134-144 Potassium, Serum 3.7 mmol/L 3.5-5.2 Chloride, Serum 102 mmol/L 96-106 Carbon Dioxide, Total 25 mmol/L 18-29 Calcium, Serum 9.2 mg/dL 8.7-10.3 Protein, Total, Serum 6.3 g/dL 6.0-8.5 Albumin, Serum 4.0 g/dL 3.6-4.8 Globulin, Total 2.3 g/dL 1.5-4.5 A/G Ratio 1.7 1.2-2.2 Bilirubin, Total 0.4 mg/dL 0.0-1.2 Alkaline Phosphatase, S 60 IU/L 39-117 AST (SGOT) 14 IU/L 0-40 ALT (SGPT) 12 IU/L 0-32 Lipid Panel - 02/22/17 08:59 Cholesterol, Total 159 mg/dL 100-199 Triglycerides 98 mg/dL 0-149 HDL Cholesterol 70 mg/dL >39 VLDL Cholesterol Jean 20 mg/dL 5-40 LDL Cholesterol Calc 69 mg/dL 0-99 TSH - 02/22/17 08:59 TSH 1.960 uIU/mL 0.450-4.500 Complete blood count (CBC) with automated white blood cell (WBC) differential - 07/29/17 09:30 Blood leukocytes automated count (number/volume) 11.0 10*3/uL 4.3-11.0 Blood erythrocytes automated count (number/volume) 5.50 10*6/uL 4.35-5.85 Venous blood hemoglobin measurement (mass/volume) 18.8 g/dL 11.5-16.0 Blood hematocrit (volume fraction) 53 % 35-52 Automated erythrocyte mean corpuscular volume 96 [foz_us] 80-99 Automated erythrocyte mean corpuscular hemoglobin (mass per erythrocyte) 34 pg 25-34 Automated erythrocyte mean corpuscular hemoglobin concentration measurement ( mass/volume) 36 g/dL 32-36 Automated erythrocyte distribution width ratio 17.3 % 10.0-14.5 Automated blood platelet count (count/volume) 130 10*3/uL 130-400 Automated blood platelet mean volume measurement 10.4 [foz_us] 7.4-10.4 Automated blood neutrophils/100 leukocytes 87 % 42-75 Automated blood lymphocytes/100 leukocytes 6 % 12-44 Blood monocytes/100 leukocytes 7 % 0-12 Automated blood eosinophils/100 leukocytes 0 % 0-10 Automated blood basophils/100 leukocytes 0 % 0-10 Blood neutrophils automated count (number/volume) 9.6 10*3 1.8-7.8 Blood lymphocytes automated count (number/volume) 0.7 10*3 1.0-4.0 Blood monocytes automated count (number/volume) 0.8 10*3 0.0-1.0 Automated eosinophil count 0.0 10*3/uL 0.0-0.3 Automated blood basophil count (count/volume) 0.0 10*3/uL 0.0-0.1 PT panel in platelet poor plasma by coagulation assay - 07/29/17 09:30 Prothrombin time (PT) in platelet poor plasma by coagulation assay 13.4 s 12.2-14.7 INR in platelet poor plasma or blood by coagulation assay 1.0 0.8-1.4 Activated partial thromboplastin time (aPTT) in platelet poor plasma bycoagulation assay - 07/29/17 09:30 Activated partial thromboplastin time (aPTT) in platelet poor plasma bycoagulation assay 28 s 24-35 Comprehensive metabolic panel - 07/29/17 09:30 Serum or plasma sodium measurement (moles/volume) 140 mmol/L 135-145 Serum or plasma potassium measurement (moles/volume) 3.5 mmol/L 3.6-5.0 Serum or plasma chloride measurement (moles/volume) 102 mmol/L 98-107 Carbon dioxide 23 mmol/L 21-32 Serum or plasma anion gap determination (moles/volume) 15 mmol/L 5-14 Serum or plasma urea nitrogen measurement (mass/volume) 6 mg/dL 7-18 Serum or plasma creatinine measurement (mass/volume) 0.86 mg/dL 0.60-1.30 Serum or plasma urea nitrogen/creatinine mass ratio 7 NRG Serum or plasma creatinine measurement with calculation of estimated glomerular filtration rate > NRG Serum or plasma glucose measurement (mass/volume) 132 mg/dL 70-105 Serum or plasma calcium measurement (mass/volume) 9.5 mg/dL 8.5-10.1 Serum or plasma total bilirubin measurement (mass/volume) 1.0 mg/dL 0.1-1.0 Serum or plasma alkaline phosphatase measurement (enzymatic activity/volume) 83 U/L 40-136 Serum or plasma aspartate aminotransferase measurement (enzymatic activity/ volume) 20 U/L 5-34 Serum or plasma alanine aminotransferase measurement (enzymatic activity/volume ) 11 U/L 0-55 Serum or plasma protein measurement (mass/volume) 6.8 g/dL 6.4-8.2 Serum or plasma albumin measurement (mass/volume) 4.0 g/dL 3.2-4.5 Serum or plasma troponin i.cardiac measurement (mass/volume) - 07/29/17 09:30 Serum or plasma troponin i.cardiac measurement (mass/volume) < ng/ mL <0.30 Blood manual differential performed detection - 07/29/17 09:30 Blood monocytes/100 leukocytes 5 % NRG Manual blood segmented neutrophils/100 leukocytes 86 % NRG Blood band neutrophils/100 leukocytes 0 % NRG Manual blood lymphocytes/100 leukocytes 9 % NRG Manual eosinophils/100 leukocytes in nose 0 % NRG Manual blood basophils/100 leukocytes 0 % NRG Blood anisocytosis detection by light microscopy MODERATE NRG Serum or plasma ethanol measurement (mass/volume) - 07/29/17 09:30 Serum or plasma ethanol measurement (mass/volume) < mg/dL <10 Complete urinalysis with reflex to culture - 07/29/17 09:56 Urine color determination YELLOW NRG Urine clarity determination CLEAR NRG Urine pH measurement by test strip 7 5-9 Specific gravity of urine by test strip 1.005 1.016- 1.022 Urine protein assay by test strip, semi-quantitative NEGATIVE NEGATIVE Urine glucose detection by automated test strip NEGATIVE NEGATIVE Erythrocytes detection in urine sediment by light microscopy NEGATIVE NEGATIVE Urine ketones detection by automated test strip NEGATIVE NEGATIVE Urine nitrite detection by test strip NEGATIVE NEGATIVE Urine total bilirubin detection by test strip NEGATIVE NEGATIVE Urine urobilinogen measurement by automated test strip (mass/volume) NORMAL NORMAL Urine leukocyte esterase detection by dipstick NEGATIVE NEGATIVE Automated urine sediment erythrocyte count by microscopy (number/high power field) NONE NRG Automated urine sediment leukocyte count by microscopy (number/high power field ) NONE NRG Bacteria detection in urine sediment by light microscopy NEGATIVE NRG Squamous epithelial cells detection in urine sediment by light microscopy NONE NRG Crystals detection in urine sediment by light microscopy PRESENT NRG Casts detection in urine sediment by light microscopy NONE NRG Mucus detection in urine sediment by light microscopy NEGATIVE NRG Complete urinalysis with reflex to culture NO NRG Calcium oxalate crystals detection in urine sediment by light microscopy MODERATE NRG Urine drug screening test - 07/29/17 09:56 Urine phencyclidine detection by screening method NEGATIVE NEGATIVE Urine benzodiazepines detection by screening method NEGATIVE NEGATIVE Urine cocaine detection NEGATIVE NEGATIVE Urine amphetamines detection by screening method NEGATIVE NEGATIVE Urine methamphetamine detection by screening method NEGATIVE NEGATIVE Urine cannabinoids detection by screening method NEGATIVE NEGATIVE Urine opiates detection by screening method NEGATIVE NEGATIVE Urine barbiturates detection NEGATIVE NEGATIVE Screening urine tricyclic antidepressants detection POSITIVE NEGATIVE Urine methadone detection by screening method NEGATIVE NEGATIVE Urine oxycodone detection NEGATIVE NEGATIVE Urine propoxyphene detection NEGATIVE NEGATIVE Complete blood count (CBC) with automated white blood cell (WBC) differential - 07/31/17 05:19 Blood leukocytes automated count (number/volume) 10.5 10*3/uL 4.3-11.0 Blood erythrocytes automated count (number/volume) 4.71 10*6/uL 4.35-5.85 Venous blood hemoglobin measurement (mass/volume) 15.7 g/dL 11.5-16.0 Blood hematocrit (volume fraction) 46 % 35-52 Automated erythrocyte mean corpuscular volume 98 [foz_us] 80-99 Automated erythrocyte mean corpuscular hemoglobin (mass per erythrocyte) 33 pg 25-34 Automated erythrocyte mean corpuscular hemoglobin concentration measurement ( mass/volume) 34 g/dL 32-36 Automated erythrocyte distribution width ratio 17.1 % 10.0-14.5 Automated blood platelet count (count/volume) 129 10*3/uL 130-400 Automated blood platelet mean volume measurement 10.6 [foz_us] 7.4-10.4 Automated blood neutrophils/100 leukocytes 72 % 42-75 Automated blood lymphocytes/100 leukocytes 18 % 12-44 Blood monocytes/100 leukocytes 10 % 0-12 Automated blood eosinophils/100 leukocytes 0 % 0-10 Automated blood basophils/100 leukocytes 0 % 0-10 Blood neutrophils automated count (number/volume) 7.5 10*3 1.8-7.8 Blood lymphocytes automated count (number/volume) 1.9 10*3 1.0-4.0 Blood monocytes automated count (number/volume) 1.0 10*3 0.0-1.0 Automated eosinophil count 0.0 10*3/uL 0.0-0.3 Automated blood basophil count (count/volume) 0.0 10*3/uL 0.0-0.1 Comprehensive metabolic panel - 07/31/17 05:19 Serum or plasma sodium measurement (moles/volume) 143 mmol/L 135-145 Serum or plasma potassium measurement (moles/volume) 3.4 mmol/L 3.6-5.0 Serum or plasma chloride measurement (moles/volume) 106 mmol/L 98-107 Carbon dioxide 27 mmol/L 21-32 Serum or plasma anion gap determination (moles/volume) 10 mmol/L 5-14 Serum or plasma urea nitrogen measurement (mass/volume) 3 mg/dL 7-18 Serum or plasma creatinine measurement (mass/volume) 0.60 mg/dL 0.60-1.30 Serum or plasma urea nitrogen/creatinine mass ratio 5 NRG Serum or plasma creatinine measurement with calculation of estimated glomerular filtration rate > NRG Serum or plasma glucose measurement (mass/volume) 111 mg/dL 70-105 Serum or plasma calcium measurement (mass/volume) 8.3 mg/dL 8.5-10.1 Serum or plasma total bilirubin measurement (mass/volume) 0.9 mg/dL 0.1-1.0 Serum or plasma alkaline phosphatase measurement (enzymatic activity/volume) 56 U/L 40-136 Serum or plasma aspartate aminotransferase measurement (enzymatic activity/ volume) 12 U/L 5-34 Serum or plasma alanine aminotransferase measurement (enzymatic activity/volume ) 6 U/L 0-55 Serum or plasma protein measurement (mass/volume) 5.0 g/dL 6.4-8.2 Serum or plasma albumin measurement (mass/volume) 3.0 g/dL 3.2-4.5 Automated blood complete blood count (hemogram) panel - 08/01/17 05:39 Blood leukocytes automated count (number/volume) 7.5 10*3/uL 4.3-11.0 Blood erythrocytes automated count (number/volume) 4.47 10*6/uL 4.35-5.85 Venous blood hemoglobin measurement (mass/volume) 14.9 g/dL 11.5-16.0 Blood hematocrit (volume fraction) 44 % 35-52 Automated erythrocyte mean corpuscular volume 99 [foz_us] 80-99 Automated erythrocyte mean corpuscular hemoglobin (mass per erythrocyte) 33 pg 25-34 Automated erythrocyte mean corpuscular hemoglobin concentration measurement ( mass/volume) 34 g/dL 32-36 Automated erythrocyte distribution width ratio 17.0 % 10.0-14.5 Automated blood platelet count (count/volume) 116 10*3/uL 130-400 Automated blood platelet mean volume measurement 10.5 [foz_us] 7.4-10.4 Whole blood basic metabolic panel - 08/01/17 05:39 Serum or plasma sodium measurement (moles/volume) 142 mmol/L 135-145 Serum or plasma potassium measurement (moles/volume) 3.5 mmol/L 3.6-5.0 Serum or plasma chloride measurement (moles/volume) 106 mmol/L 98-107 Carbon dioxide 27 mmol/L 21-32 Serum or plasma anion gap determination (moles/volume) 9 mmol/L 5-14 Serum or plasma urea nitrogen measurement (mass/volume) 4 mg/dL 7-18 Serum or plasma creatinine measurement (mass/volume) 0.57 mg/dL 0.60-1.30 Serum or plasma urea nitrogen/creatinine mass ratio 7 NRG Serum or plasma creatinine measurement with calculation of estimated glomerular filtration rate > NRG Serum or plasma glucose measurement (mass/volume) 99 mg/dL 70-105 Serum or plasma calcium measurement (mass/volume) 8.2 mg/dL 8.5-10.1 Complete blood count (CBC) with automated white blood cell (WBC) differential - 08/02/17 05:28 Blood leukocytes automated count (number/volume) 6.5 10*3/uL 4.3-11.0 Blood erythrocytes automated count (number/volume) 4.24 10*6/uL 4.35-5.85 Venous blood hemoglobin measurement (mass/volume) 13.9 g/dL 11.5-16.0 Blood hematocrit (volume fraction) 42 % 35-52 Automated erythrocyte mean corpuscular volume 99 [foz_us] 80-99 Automated erythrocyte mean corpuscular hemoglobin (mass per erythrocyte) 33 pg 25-34 Automated erythrocyte mean corpuscular hemoglobin concentration measurement ( mass/volume) 33 g/dL 32-36 Automated erythrocyte distribution width ratio 16.6 % 10.0-14.5 Automated blood platelet count (count/volume) 122 10*3/uL 130-400 Automated blood platelet mean volume measurement 10.6 [foz_us] 7.4-10.4 Automated blood neutrophils/100 leukocytes 61 % 42-75 Automated blood lymphocytes/100 leukocytes 25 % 12-44 Blood monocytes/100 leukocytes 10 % 0-12 Automated blood eosinophils/100 leukocytes 3 % 0-10 Automated blood basophils/100 leukocytes 0 % 0-10 Blood neutrophils automated count (number/volume) 4.0 10*3 1.8-7.8 Blood lymphocytes automated count (number/volume) 1.6 10*3 1.0-4.0 Blood monocytes automated count (number/volume) 0.7 10*3 0.0-1.0 Automated eosinophil count 0.2 10*3/uL 0.0-0.3 Automated blood basophil count (count/volume) 0.0 10*3/uL 0.0-0.1 Whole blood basic metabolic panel - 08/02/17 05:28 Serum or plasma sodium measurement (moles/volume) 140 mmol/L 135-145 Serum or plasma potassium measurement (moles/volume) 3.5 mmol/L 3.6-5.0 Serum or plasma chloride measurement (moles/volume) 106 mmol/L 98-107 Carbon dioxide 25 mmol/L 21-32 Serum or plasma anion gap determination (moles/volume) 9 mmol/L 5-14 Serum or plasma urea nitrogen measurement (mass/volume) 4 mg/dL 7-18 Serum or plasma creatinine measurement (mass/volume) 0.62 mg/dL 0.60-1.30 Serum or plasma urea nitrogen/creatinine mass ratio 6 NRG Serum or plasma creatinine measurement with calculation of estimated glomerular filtration rate > NRG Serum or plasma glucose measurement (mass/volume) 95 mg/dL 70-105 Serum or plasma calcium measurement (mass/volume) 8.3 mg/dL 8.5-10.1 Complete blood count (CBC) with automated white blood cell (WBC) differential - 08/19/17 10:30 Blood leukocytes automated count (number/volume) 8.4 10*3/uL 4.3-11.0 Blood erythrocytes automated count (number/volume) 4.40 10*6/uL 4.35-5.85 Venous blood hemoglobin measurement (mass/volume) 14.8 g/dL 11.5-16.0 Blood hematocrit (volume fraction) 44 % 35-52 Automated erythrocyte mean corpuscular volume 101 [foz_us] 80-99 Automated erythrocyte mean corpuscular hemoglobin (mass per erythrocyte) 34 pg 25-34 Automated erythrocyte mean corpuscular hemoglobin concentration measurement ( mass/volume) 34 g/dL 32-36 Automated erythrocyte distribution width ratio 17.0 % 10.0-14.5 Automated blood platelet count (count/volume) 252 10*3/uL 130-400 Automated blood platelet mean volume measurement 10.3 [foz_us] 7.4-10.4 Automated blood neutrophils/100 leukocytes 65 % 42-75 Automated blood lymphocytes/100 leukocytes 21 % 12-44 Blood monocytes/100 leukocytes 10 % 0-12 Automated blood eosinophils/100 leukocytes 4 % 0-10 Automated blood basophils/100 leukocytes 0 % 0-10 Blood neutrophils automated count (number/volume) 5.4 10*3 1.8-7.8 Blood lymphocytes automated count (number/volume) 1.8 10*3 1.0-4.0 Blood monocytes automated count (number/volume) 0.9 10*3 0.0-1.0 Automated eosinophil count 0.3 10*3/uL 0.0-0.3 Automated blood basophil count (count/volume) 0.0 10*3/uL 0.0-0.1 Serum or plasma C reactive protein measurement (mass/volume) - 08/19/17 10:30 Serum or plasma C reactive protein measurement (mass/volume) 2.69 mg /dL 0.00-0.50 Whole blood basic metabolic panel - 08/19/17 10:30 Serum or plasma sodium measurement (moles/volume) 140 mmol/L 135-145 Serum or plasma potassium measurement (moles/volume) 4.2 mmol/L 3.6-5.0 Serum or plasma chloride measurement (moles/volume) 102 mmol/L 98-107 Carbon dioxide 29 mmol/L 21-32 Serum or plasma anion gap determination (moles/volume) 9 mmol/L 5-14 Serum or plasma urea nitrogen measurement (mass/volume) 12 mg/dL 7-18 Serum or plasma creatinine measurement (mass/volume) 0.72 mg/dL 0.60-1.30 Serum or plasma urea nitrogen/creatinine mass ratio 17 NRG Serum or plasma creatinine measurement with calculation of estimated glomerular filtration rate > NRG Serum or plasma glucose measurement (mass/volume) 109 mg/dL 70-105 Serum or plasma calcium measurement (mass/volume) 9.1 mg/dL 8.5-10.1 Complete urinalysis with reflex to culture - 08/19/17 11:30 Urine color determination YELLOW NRG Urine clarity determination CLEAR NRG Urine pH measurement by test strip 6.5 5-9 Specific gravity of urine by test strip 1.010 1.016- 1.022 Urine protein assay by test strip, semi-quantitative NEGATIVE NEGATIVE Urine glucose detection by automated test strip NEGATIVE NEGATIVE Erythrocytes detection in urine sediment by light microscopy NEGATIVE NEGATIVE Urine ketones detection by automated test strip NEGATIVE NEGATIVE Urine nitrite detection by test strip NEGATIVE NEGATIVE Urine total bilirubin detection by test strip NEGATIVE NEGATIVE Urine urobilinogen measurement by automated test strip (mass/volume) NORMAL NORMAL Urine leukocyte esterase detection by dipstick NEGATIVE NEGATIVE Automated urine sediment erythrocyte count by microscopy (number/high power field) NONE NRG Automated urine sediment leukocyte count by microscopy (number/high power field ) NONE NRG Bacteria detection in urine sediment by light microscopy NEGATIVE NRG Squamous epithelial cells detection in urine sediment by light microscopy 5-10 NRG Crystals detection in urine sediment by light microscopy NONE NRG Casts detection in urine sediment by light microscopy NONE NRG Mucus detection in urine sediment by light microscopy NEGATIVE NRG Complete urinalysis with reflex to culture NO NRG Encounters ACCT No. Visit Date/Time Discharge Status Pt. Type Provider Facility Loc./Unit Complaint [id number] 09/10/2014 09:56:00 09/10/2014 23:59:59 CLS Outpatient DEANA LEWIS [id number] 09/10/2014 09:56:00 09/10/2014 23:59:59 CLS Outpatient DAENA LEWIS [id number] 03/09/2014 10:44:00 03/09/2014 23:59:59 CLS Outpatient DANIEL BROUSSARD APRN [id number] 02/01/2014 11:46:00 02/01/2014 23:59:59 CLS Outpatient MORENA MONTENEGRO APRN Eddie [id number] 12/07/2013 13:57:00 12/07/2013 23:59:59 CLS Outpatient DANIEL BROUSSARD APRN [id number] 10/02/2013 12:18:00 10/02/2013 23:59:59 CLS Outpatient ARTI ZULETA DO [id number] 06/04/2013 10:41:00 06/04/2013 23:59:59 CLS Outpatient ARTI ZULETA DO [id number] 05/13/2013 13:57:00 05/13/2013 23:59:59 CLS Outpatient ARTI ZULETA DO [id number] 04/29/2013 16:02:00 04/29/2013 23:59:59 CLS Outpatient ARUN VEGA MD [id number] 03/02/2013 15:54:00 03/02/2013 23:59:59 CLS Outpatient ARTI ZULETA DO [id number] 02/25/2013 15:30:00 02/25/2013 23:59:59 CLS Outpatient ARTI ZULETA DO [id number] 08/27/2012 15:21:00 08/27/2012 23:59:59 CLS Outpatient TRENT STORM DO [id number] 08/25/2012 08:40:00 08/25/2012 23:59:59 CLS Outpatient MORENA MONTENEGRO APRN [id number] 08/13/2012 09:20:00 08/13/2012 23:59:59 CLS Outpatient [id number] 07/29/2012 15:28:00 07/29/2012 23:59:59 CLS Outpatient TRENT STORM DO [id number] 05/14/2012 15:43:00 05/14/2012 23:59:59 CLS Outpatient MORENA MONTENEGRO APRN [id number] 03/12/2012 15:26:00 03/12/2012 23:59:59 CLS Outpatient MORENA MONTENEGRO APRN [id number] 12/09/2012 07:43:00 Document Registration [id number] 11/10/2012 14:37:00 Document Registration [id number] 09/12/2017 13:40:00 09/12/2017 23:59:59 CLS Outpatient MORENA MONTENEGRO APRN [facility] [id number] 09/09/2017 08:53:00 09/09/2017 08:53:00 CAN Inpatient Rich Gates [id number] 09/09/2017 11:53:41 Document Registration [id number] 02/23/2017 09:09:00 Document Registration [id number] 09/13/2017 10:00:00 09/13/2017 10:42:00 DIS Outpatient TADEO KHAN, GANGA Prescott [facility] PREOP COLONOSCOPY [id number] 08/19/2017 09:56:00 08/19/2017 13:37:00 DIS Emergency KELSIE KHAN, MELISSA Morgan [facility] ER DVT [id number] 08/13/2017 12:03:00 08/13/2017 23:59:59 CLS Outpatient CARO CAMARA [facility] RAD RULE OUT DVT [id number] 07/30/2017 11:33:00 08/02/2017 16:18:00 DIS Inpatient MALGORZATA COON DO [facility] 4TH N/V, DEHYDRATION, RECTAL BLEEDING [id number] 07/30/2017 05:42:00 07/30/2017 23:59:59 CLS Outpatient TADEO KHAN, GANGA Prescott [facility] PREOP COLONOSCOPY/EGD [id number] 07/29/2017 09:18:00 07/29/2017 13:45:00 DIS Emergency KELSIE KHAN, MELISSA Morgan [facility] ER ANAL BLEED [id number] 12/28/2015 14:02:00 12/28/2015 23:59:59 CLS Outpatient GARY KHAN, ARUN Beltran [facility] RAD DEMENTIA [id number] 09/16/2017 10:30:00 PEN Preadmit TADEO KHAN, GANGA Prescott [facility] ENDO ISCHEMIC COLITIS/RECTAL BLEEDING
[2017-09-16] MEDS ORDERED: NS IV 500 ML 500 ML IV PRN (09:17)
--- NOTE | 2017-09-16 09:32 | Conscious Sedation/ASA ---
Conscious Sedation Pre-Proced Time Reviewed: 09:32 ASA Class: 3 Airway Mallampati Classification: (inupiat appropriate class) I. II. III, IV Lungs Heart ASA score ASA 1: a normal healthy patient ASA 2: a patient with a mild systemic disease (mid diabetes, controlled hypertension, obesity ASA 3: a patient with a severe systemic disease that limits activity (angina , COPD, prior Myocardial infarction) ASA 4: a patient with an incapacitating disease that is a constant threat to life (CHF, renal failure) ASA 5: a moribund patient not expected to survive 24 hrs. (ruptured aneurysm) ASA 6: a declared brain patient whose organs are being harvested. For emergent operations, add the letter E after the classification Grade 2 Sedation Plan: Discussed options with patient/fam Note The patient is an appropriate candidate to undergo the planned procedure, sedation, and anesthesia. The patient immediately re-assessed prior to indication. GANGA PIEDRA MD Sep 16, 2017 9:32 am
[2017-09-16] MEDS ORDERED: NS IV 500 ML 500 ML ONE (09:35)
[2017-09-16] MEDS ORDERED: MIDAZOLAM 2 MG/2 ML (VERSED) VIAL ONE ×4 (10:43)
[2017-09-16] MEDS ORDERED: fentaNYL INJECTION 100 MCG/2 ML AMP ONE (10:43)
[2017-09-16] MEDS: MIDAZOLAM 2 MG/2 ML (VERSED) VIAL IVP PRN ×3 (10:58→11:10)
[2017-09-16] MEDS: fentaNYL INJECTION 100 MCG/2 ML AMP IVP PRN ×2 (10:59→11:07)
--- NOTE | 2017-09-16 11:20 | Endo Procedure Record ---
Endo Procedure Report Date of Procedure Last Colonoscopy: Yes (unsure) Sep 16, 2017 Surgeon (s) GANGA PIEDRA MD Post Procedure/Op Diagnosis Resolved ischemic colitis Procedure Performed Colonoscopy to cecum Description of Procedure Anesthesia Type: Conscious Sedation Specimen(s) collected/removed none Description of the Procedure Indication for the procedure: In July 2017, this lady was found to have a 10 mm adenomatous polyp, confirmed to be a tubular adenoma, involving the rectum and what appeared to be superficial ischemic colitis of the left colon. Her symptoms have improved and she came in for a follow-up colonoscopy. Informed consent obtained after reviewing the procedure in detail. Description of procedure: She was placed in left lateral rectus position and her vital signs were monitored. Conscious sedation was achieved using Versed and fentanyl. Digital rectal examination was unremarkable. The colonoscope was then introduced into the rectum and advanced to the cecum The quality of bowel preparation was excellent. The scope was then withdrawn slowly and the mucosa examined in a systematic fashion. Finding: Normal mucosa with complete resolution of ischemic colitis She tolerated the procedure well and was taken back to the nursing area in a stable condition. Impression: Resolved ischemic colitis. Previous adenomatous polyp of the rectum. Recommended surveillance colonoscopy in 2 years. Copies To: ARUN VEGA MD, XAVIER M MD Sep 16, 2017 11:20 am
--- NOTE | 2017-09-16 11:21 | Discharge Inst-Simple/Standard ---
Discharge Inst-Standard Discharge Medications New, Converted or Re-Newed RX: Other Patient Instructions/Follow Up Plan of Care/Instructions/FU: Colonoscopy in 2 years for polyp surveillance Activity as Tolerated: Yes Discharge Diet: No Restrictions GANGA PIEDRA MD Sep 16, 2017 11:21 am
[2017-09-16 12:35] VITALS: BP 146/80
[2017-09-16 13:04] VITALS: BP 146/80
== END 2017-09-16 12:10 | disposition home or self-care (01) ==
LOC: ENDO 08:56
PROVIDERS: ATTEND Surgery
DX: Z09 Encounter for follow-up examination after completed treatment for conditions other than malignant neoplasm (principal); Z86.010 Personal history of colon polyps; Z87.891 Personal history of nicotine dependence

== ENCOUNTER 2018-06-23 16:43 | Emergency (ER) | payer MEDICARE, OTHER ==
[~2018-06-23] VITALS: Ht 177.8 cm; Wt 90.7 kg
[~2018-06-23 16:43] MED LIST changes: +METR-197 PO; -METR500T21 PO; -QUET150T2 PO; +QUET150T3 PO
[2018-06-23 18:27] LABS: BASOPHILS % (AUTO) 0 % (0-10); EOSINOPHILS # (AUTO) 0.1 10^3/uL (0.0-0.3); EOSINOPHILS % (AUTO) 2 % (0-10); HEMATOCRIT 41 % (35-52); HEMOGLOBIN 13.6 G/DL (11.5-16.0); LYMPHOCYTES % (AUTO) 28 % (12-44); MEAN CORPUSCULAR HEMOGLOBIN 31 PG (25-34); MEAN CORPUSCULAR HGB CONC 33 G/DL (32-36); MEAN CORPUSCULAR VOLUME 94 FL (80-99); MEAN PLATELET VOLUME 10.1 FL (7.4-10.4); MONOCYTES # (AUTO) 0.9 X 10^3 (0.0-1.0); MONOCYTES % (AUTO) 12 % (0-12); NEUTROPHILS # (AUTO) 4.3 X 10^3 (1.8-7.8); NEUTROPHILS % (AUTO) 59 % (42-75); PLATELET COUNT 214 10^3/uL (130-400); RED BLOOD COUNT 4.36 10^6/uL (4.35-5.85); RED CELL DISTRIBUTION WIDTH 15.6 % (10.0-14.5); WHITE BLOOD COUNT 7.3 10^3/uL (4.3-11.0)
--- NOTE | 2018-06-23 18:34 | ED General ---
General Chief Complaint: Lower Extremity Stated Complaint: BILAT LEG/FOOT SWELLING Nursing Triage Note: PATIENT HERE BY POV WITH FAMILY MEMBER. PATIENT IS [facility] AND HAS VASCULAR DEMENTIA. FAMILY STATES THAT THE PATIENT HAD DVT LAST YEAR AND HAS APPARENTLY NOT BEEN ON ELIQUIS SINCE MARCH. SATURDAY SHE STARTED HAVING SWELLING IN BILAT LEGS AND FEET. SHE IS NORMALLY VERY MOBILE AT THE [facility] BUT UNABLE TO WALK DUE TO PAIN. ALSO NOTICED SOME BRUISING TODAY. Nursing Sepsis Screen: No Definite Risk Source of Information: Patient Exam Limitations: No Limitations History of Present Illness Date Seen by Provider: Jun 23, 2018 Time Seen by Provider: 18:07 Initial Comments This 67-year-old woman with advanced dementia and is a resident of [facility] and is brought to the emergency room by her daughter. Patient is unable to provide any history due to her dementia. Daughter provides the history and states she had a fall on Saturday for without obvious injury. However, on Saturday her feet began to swell. Her left leg also began to swell. Patient stopped walking at that point. Today significant bruising is noted on both feet and she appears tender to the touch. Patient also appears to have a distended abdomen and states she has pain in the suprapubic region. Patient has a history of DVT. Cognitive status seems to be about at baseline. There is no reported head or neck injury. Change in mental status would be difficult to assess due to advanced dementia, but daughter thinks her cognition may be a bit worse than usual. Patient has a history of DVT last spring. She was on Eliquis until March. Allergies and Home Medications Allergies Coded Allergies: morphine (Verified Allergy, Intermediate, 08/01/17) butorphanol (Verified Allergy, Unknown, 08/01/17) Home Medications Acetaminophen 325 Mg Capsule, 650 MG PO Q4H PRN for pain/fever, (Reported) take 2 (325mg) tabs Apixaban 5 Mg Tablet, 5 MG PO BID, (Reported) Buspirone HCl 10 Mg Tablet, 10 MG PO BID, (Reported) Lisinopril 10 Mg Tablet, 10 MG PO DAILY, (Reported) Lovastatin 20 Mg Tablet, 20 MG PO HS, (Reported) Nicotine 1 Each Patch.dysq, 14 MG TD DAILY, (Reported) Pantoprazole Sodium 40 Mg Tablet.dr, 40 MG PO DAILY, (Reported) Quetiapine Fumarate 150 Mg Tab.er.24h, 150 MG PO HS, (Reported) Trihexyphenidyl HCl 2 Mg Tablet, 1 MG PO BID, (Reported) take 1/2 of 2mg tab Patient Home Medication List Home Medication List Reviewed: Yes Review of Systems Review of Systems Constitutional: no symptoms reported EENTM: no symptoms reported Respiratory: no symptoms reported Cardiovascular: no symptoms reported Gastrointestinal: see HPI, other (incontinent of stool) Genitourinary: other (questionable incontinence. Patient wears depends. Has been incontinent of stool) : No Musculoskeletal: see HPI Skin: see HPI Psychiatric/Neurological: See HPI Hematologic/Lymphatic: No Symptoms Reported Immunological/Allergic: no symptoms reported Past Djjosrb-Znnanx-Pluiaj Hx Patient Social History Alcohol Use: Denies Use Recreational Drug Use: No (PAST PRESCRIPTION DRUG ABUSE) Smoking Status: Current Everyday Smoker Type Used: Cigarettes Former Smoker, Quit: Jul 16, 2017 2nd Hand Smoke Exposure: Yes Recent Foreign Travel: No Contact w/Someone Who Travel: No Recent Infectious Disease Expo: No Recent Hopitalizations: No Physical Abuse: No Sexual Abuse: No Immunizations Up To Date Date of Influenza Vaccine: Mar 25, 2017 Seasonal Allergies Seasonal Allergies: No Past Medical History Surgeries: Yes Appendectomy, Section, Hysterectomy Respiratory: No Cardiac: Yes Deep Vein Thrombosis, High Cholesterol, Hypertension Neurological: Yes (ELECTRIC SHOCK TREATMENT ( LAST ONE 14 YRS. AGO)) Dementia Reproductive Disorders: No Sexually Transmitted Disease: No HIV/AIDS: No Genitourinary: No Gastrointestinal: Yes ( BOWEL ISSUES, LOSS APPETITE) Colitis, Gastroesophageal Reflux Musculoskeletal: No Endocrine: No HEENT: Yes Loss of Vision: Bilateral Hearing Impairment: Denies Cancer: No Psychosocial: Yes Anxiety, Depression Integumentary: No Blood Disorders: No Adverse Reaction/Blood Tranf: No (N/A) Physical Exam Vital Signs Vital Signs - First Documented 06/23/18 17:00 Temp 97.7 Pulse 87 Resp 20 B/P (MAP) 151/88 (109) Pulse Ox 92 O2 Delivery Room Air Capillary Refill : Less Than 3 Seconds Height, Weight, BMI Height: 5'10.00" Weight: 200lbs. 0oz. 90.452659ig; 28.2 BMI Method:Stated General Appearance: No Apparent Distress, WD/WN HEENT: PERRL/EOMI, Normal ENT Inspection Neck: Normal Inspection, Non Tender Respiratory: Lungs Clear, Normal Breath Sounds, No Accessory Muscle Use, No Respiratory Distress Cardiovascular: Regular Rate, Rhythm, No Edema, No Murmur Gastrointestinal: Normal Bowel Sounds, Soft, Distended, Tenderness (tenderness in the right lower quadrant and suprapubic region) Back: Normal Inspection, No Vertebral Tenderness Extremity: Swelling (bilaterally), Other (extensive bruising and tenderness of both feet.) Neurologic/Psychiatric: Alert, No Motor/Sensory Deficits, rug repairer II-XII Norm as Tested, Other (advanced dementia at baseline) Skin: Warm/Dry, Ecchymosis Progress/Results/Core Measures Suspected Sepsis Recent Fever Within 48 Hours: No Infection Criteria Present: None New/Unexplained Altered Menta: No Sepsis Screen: No Definite Risk SIRS Temperature:97.7 Pulse: 87 Respiratory Rate: 20 Laboratory Tests 06/23/18 17:15: White Blood Count 7.3 Blood Pressure 151 /88 Mean: 109 Laboratory Tests 06/23/18 17:15: Creatinine 0.77, INR Comment 0.9, Platelet Count 214, Total Bilirubin 0.7 Results/Orders Lab Results Laboratory Tests Test 06/23/18 17:15 06/23/18 18:50 Range/Units White Blood Count 7.3 4.3-11.0 10^3/uL Red Blood Count 4.36 4.35-5.85 10^6/uL Hemoglobin 13.6 11.5-16.0 G/DL Hematocrit 41 35-52 % Mean Corpuscular Volume 94 80-99 FL Mean Corpuscular Hemoglobin 31 25-34 PG Mean Corpuscular Hemoglobin Concent 33 32-36 G/DL Red Cell Distribution Width 15.6 H 10.0-14.5 % Platelet Count 214 130-400 10^3/uL Mean Platelet Volume 10.1 7.4-10.4 FL Neutrophils (%) (Auto) 59 42-75 % Lymphocytes (%) (Auto) 28 12-44 % Monocytes (%) (Auto) 12 0-12 % Eosinophils (%) (Auto) 2 0-10 % Basophils (%) (Auto) 0 0-10 % Neutrophils # (Auto) 4.3 1.8-7.8 X 10^3 Lymphocytes # (Auto) 2.0 1.0-4.0 X 10^3 Monocytes # (Auto) 0.9 0.0-1.0 X 10^3 Eosinophils # (Auto) 0.1 0.0-0.3 10^3/uL Basophils # (Auto) 0.0 0.0-0.1 10^3/uL Prothrombin Time 12.5 12.2-14.7 SEC INR Comment 0.9 0.8-1.4 Activated Partial Thromboplast Time 28 24-35 SEC D-Dimer 2.70 H 0.00-0.49 UG/ML Sodium Level 141 135-145 MMOL/L Potassium Level 3.9 3.6-5.0 MMOL/L Chloride Level 103 98-107 MMOL/L Carbon Dioxide Level 25 21-32 MMOL/L Anion Gap 13 5-14 MMOL/L Blood Urea Nitrogen 13 7-18 MG/DL Creatinine 0.77 0.60-1.30 MG/DL Estimat Glomerular Filtration Rate > 60 BUN/Creatinine Ratio 17 Glucose Level 102 70-105 MG/DL Calcium Level 9.3 8.5-10.1 MG/DL Corrected Calcium 9.1 8.5-10.1 MG/DL Total Bilirubin 0.7 0.1-1.0 MG/DL Aspartate Amino Transf (AST/SGOT) 18 5-34 U/L Alanine Aminotransferase (ALT/SGPT) 15 0-55 U/L Alkaline Phosphatase 79 40-136 U/L Total Protein 6.8 6.4-8.2 GM/DL Albumin 4.2 3.2-4.5 GM/DL Urine Color YANG H Urine Clarity SLIGHTLY CLOUDY Urine pH 6 5-9 Urine Specific [place] 1.025 H 1.016-1.022 Urine Protein 2+ H NEGATIVE Urine Glucose (UA) NEGATIVE NEGATIVE Urine Ketones NEGATIVE NEGATIVE Urine Nitrite NEGATIVE NEGATIVE Urine Bilirubin NEGATIVE NEGATIVE Urine Urobilinogen 1 NORMAL MG/DL Urine Leukocyte Esterase 1+ H NEGATIVE Urine RBC (Auto) NEGATIVE NEGATIVE Urine RBC NONE /HPF Urine WBC 2-5 /HPF Urine Squamous Epithelial Cells 5-10 /HPF Urine Renal Epithelial Cells RARE /HPF Urine Crystals NONE /LPF Urine Bacteria TRACE /HPF Urine Casts NONE /LPF Urine Mucus SMALL H /LPF Urine Culture Indicated NO My Orders Orders - MELISSA IGLESIAS MD Chest 1 View, Ap/Pa Only (06/23/18 18:19) Saline Lock/Iv-Start (06/23/18 18:19) Cbc With Automated Diff (06/23/18 18:19) Comprehensive Metabolic Panel (06/23/18 18:19) Ua Culture If Indicated (06/23/18 18:19) Protime With Inr (06/23/18 18:19) Partial Thromboplastin Time (06/23/18 18:19) Ct Abdomen/Pelvis W (06/23/18 18:58) Ct Head/Cervical Spine Wo (06/23/18 18:58) Iohexol Injection (Omnipaque 350 Mg/Ml 1 (06/23/18 19:15) Contrast Received (Contrast Received) (06/23/18 19:15) Ns (Ivpb) (Sodium Chloride 0.9% Ivpb Bag (06/23/18 19:15) Foot, Bilateral, 3 View (06/23/18 ) Tibia/Fibula, Bilateral, 2view (06/23/18 ) Fibrin Degradation Products (06/23/18 19:38) Medications Given in ED Current Medications Medications Dose Ordered Sig/Akira Route Start Time Stop Time Status Last Admin Dose Admin Iohexol 100 ml ONCE ONCE IV 06/23/18 19:15 06/23/18 19:16 DC 06/23/18 19:20 100 ML Sodium Chloride 100 ml ONCE ONCE IV 06/23/18 19:15 06/23/18 19:16 DC 06/23/18 19:20 80 ML Vital Signs/I&O 06/23/18 17:00 Temp 97.7 Pulse 87 Resp 20 B/P (MAP) 151/88 (109) Pulse Ox 92 O2 Delivery Room Air Capillary Refill : Less Than 3 Seconds Blood Pressure Mean: 109 Departure Impression Primary Impression: Suspected DVT (deep vein thrombosis) Additional Impressions: Elevated d-dimer Swelling of both lower extremities Superficial bruising of foot Qualified Codes: S90.30XA - Contusion of unspecified foot, initial encounter Bilateral foot pain Constipation Qualified Codes: K59.00 - Constipation, unspecified Disposition: HOME, SELF-CARE Condition: Improved Departure-Patient Inst. Decision time for Depature: 20:16 Referrals: ARUN VEGA MD (PCP) Primary Care Physician CARO CAMARA (Family) Primary Care Physician Patient Instructions: Deep Vein Thrombosis (Blood Clots in the Legs) (DC) Add. Discharge Instructions: You may give Tylenol (acetaminophen) up to 1000 mg every 6 hours as needed for pain. Present to the hospital after 07:30 for stat ultrasound of the left lower extremity. Findings of ultrasound should be called to Dr. Medina and further instructions provided. If ultrasound is positive, or ultrasound cannot be obtained promptly tomorrow morning, then start Eliquis as prescribed. Return to the emergency room if symptoms are worsening. Follow-up with your primary care provider as soon as possible. At your follow-up appointment, discuss the findings of the CT of the abdomen and pelvis. For constipation, encourage plenty of clear liquids and use MiraLAX as prescribed. All discharge instructions reviewed with patient and/or family. Voiced understanding. Scripts Polyethylene Glycol 3350 (Miralax) 119 Gm Powder 17 GM PO BID PRN for CONSTIPATION-1ST LINE, #1 EA Prov: MELISSA IGLESIAS MD 06/23/18 Apixaban (Eliquis) 5 Mg Tablet 5 MG PO BID, #60 TAB Prov: MELISSA IGLESIAS MD 06/23/18 MELISSA IGLESIAS MD Jun 23, 2018 18:34
[2018-06-23 18:35] LABS: INR 0.9 (0.8-1.4); PROTHROMBIN TIME PATIENT 12.5 SEC (12.2-14.7)
[2018-06-23 18:38] LABS: ALANINE AMINOTRANSFERASE 15 U/L (0-55); ALBUMIN 4.2 GM/DL (3.2-4.5); ALKALINE PHOSPHATASE 79 U/L (40-136); BILIRUBIN,TOTAL 0.7 MG/DL (0.1-1.0); BUN/CREATININE RATIO 17; CALCIUM 9.3 MG/DL (8.5-10.1); CARBON DIOXIDE 25 MMOL/L (21-32); CHLORIDE 103 MMOL/L (98-107); CREATININE SERUM 0.77 MG/DL (0.60-1.30); GFR ESTIMATED > 60; GLUCOSE 102 MG/DL (70-105); POTASSIUM 3.9 MMOL/L (3.6-5.0); SODIUM 141 MMOL/L (135-145); TOTAL PROTEIN 6.8 GM/DL (6.4-8.2)
[2018-06-23 18:57] LABS: BILIRUBIN,URINE NEGATIVE (NEGATIVE); CLARITY,URINE SLIGHTLY CLOUDY; COLOR,URINE AMBER; GLUCOSE, URINE (UA) NEGATIVE (NEGATIVE); KETONES,URINE NEGATIVE (NEGATIVE); LEUKOCYTE ESTERASE ,URINE 1+ (NEGATIVE); NITRITE,URINE NEGATIVE (NEGATIVE); PH,URINE 6 (5-9); PROTEIN,URINE 2+ (NEGATIVE); UROBILINOGEN,URINE 1 MG/DL (NORMAL)
[2018-06-23 19:06] LABS: BACTERIA,URINE TRACE /HPF; RENAL EPITHELIAL CELLS,URINE RARE /HPF
[2018-06-23] MEDS ORDERED: RECEIVED CONTRAST (Hold Metformin) IV SCH (19:15)
[2018-06-23] MEDS ORDERED: IOHEXOL 350 MG/ML 100 ML (OMNIPAQUE 350) VIAL IV ONE (19:15)
[2018-06-23] MEDS ORDERED: NS 100 ML (IVPB) BAG IV ONE (19:15)
--- NOTE | 2018-06-23 19:25 | Diagnostic Imaging Report ---
EXAM: CHEST 1 VIEW, AP/PA ONLY. INDICATION: Lower extremity swelling. COMPARISON: None. FINDINGS: Cardiomegaly. Normal pulmonary vascularity. No focal pulmonary opacity, pleural effusion, or pneumothorax. Calcified aorta. No acute osseous findings. IMPRESSION: Cardiomegaly. No acute cardiopulmonary findings. Dictated by: Dictated on workstation # [id number]
--- NOTE | 2018-06-23 19:28 | Diagnostic Imaging Report ---
EXAM: FOOT, BILATERAL, 3 VIEW INDICATION: PAIN COMPARISON: None. FINDINGS: Demineralization. No fracture or malalignment. Soft tissue shadows are unremarkable. IMPRESSION: Demineralization. Remainder unremarkable. Dictated by: Dictated on workstation # [id number]
--- NOTE | 2018-06-23 19:29 | Diagnostic Imaging Report ---
EXAM: TIBIA/FIBULA, BILATERAL, 2VIEW INDICATION: PAIN COMPARISON: None. FINDINGS: No fracture or malalignment. No suspicious osteoblastic or lytic lesions. Soft tissue shadows are unremarkable. IMPRESSION: Negative bilateral tibia and fibula radiographs. Dictated by: Dictated on workstation # [id number]
--- NOTE | 2018-06-23 19:39 | Diagnostic Imaging Report ---
PROCEDURE: CT head and CT cervical spine without contrast. TECHNIQUE: Multiple contiguous axial images were obtained through the brain and cervical spine without the use of intravenous contrast. Sagittal and coronal reformations through the cervical spine were then performed. INDICATION: Fall. Altered mental status. COMPARISON: CT head without contrast 12/28/2015. FINDINGS: CT head: Advanced generalized cerebral and cerebellar parenchymal volume loss. No intracranial hemorrhage, mass effect, hydrocephalus or extra-axial fluid collections. No CT evidence for territorial infarction. Osseous structures are intact. Mild mucosal thickening in the maxillary sinuses. The mastoids are clear. CT cervical spine: Normal alignment. Vertebral body heights preserved. No fractures. Moderate degenerative endplate changes at C5-C6 result in mild to moderate spinal canal narrowing. No other spinal canal narrowing is evident on this noncontrast exam. The visualized paravertebral soft tissues are unremarkable. IMPRESSION: No acute intracranial or cervical spine CT findings. Chronic findings as above. Dictated by: Dictated on workstation # [id number]
--- NOTE | 2018-06-23 19:52 | Diagnostic Imaging Report ---
PROCEDURE: CT abdomen and pelvis with contrast. TECHNIQUE: Multiple contiguous axial images were obtained through the abdomen and pelvis after administration of intravenous contrast. INDICATION: Abdominal pain and distention. COMPARISON: None. FINDINGS: Mild linear scarring or atelectasis in the lung bases. Large gallstones. No secondary findings of cholecystitis. The liver, pancreas, spleen, left adrenal, kidneys and right ureter are negative. There is a 3 mm hyperattenuating focus at the left ureteropelvic junction. No left hydronephrosis. No other findings suspicious for renal stones. 2.9 x 3.3 cm well-circumscribed indeterminate mass in the right adrenal gland. Subcentimeter simple appearing cyst in the right kidney. Hysterectomy. A large amount stool throughout most of the colon. No evidence of bowel obstruction or inflammation. No lymphadenopathy. No free intraperitoneal air or fluid. IMPRESSION: 1. There is a single 3 mm hyperattenuating focus in the left ureteropelvic junction. There are no other findings suspicious for renal stones. There is no hydronephrosis. It is unclear if this represents a small renal stone, a hyperattenuating or enhancing mass or, less likely, debris in the bladder. Recommend short-term followup CT including a noncontrast phase. 2. A large amount of stool throughout most of the colon may represent a degree of constipation. No evidence of bowel obstruction. 3. Cholelithiasis without secondary findings of cholecystitis. 4. Well-circumscribed indeterminate mass in the right adrenal gland measures 2.9 x 3.3 cm. No priors are available for comparison. Recommend nonemergent dedicated multiphase contrast-enhanced CT for further evaluation. Dictated by: Dictated on workstation # [id number]
[2018-06-23] MEDS ORDERED: APIXABAN 5 MG (ELIQUIS) TABLET PO ONE (20:15)
[2018-06-23] MEDS ORDERED: APIX5TAB PO (20:20)
[2018-06-23] MEDS ORDERED: POLY119P5 PO (20:20)
[2018-06-23 20:40] VITALS: BP 151/88
--- OUTSIDE RECORDS SUMMARY | 2018-06-23 23:08 | XMS REPORT ---
Author Author CARO CAMARA [facility] Address [address] [place] [address] Care Team Providers Care Cook Taco Name Role Phone CARO CAMARA Unavailable PROBLEMS Type Condition ICD9-CM Code FWH70-NP Code Onset Dates Condition Status SNOMED Code Problem Mood disorder F39 Active 38117557 Problem Dementia F03.90 Active 25524163 Problem Hypertension, benign I10 Active 93461059 Problem Cognitive dysfunction F09 Active 543522686 Problem 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 409462565 Problem Anxiety disorder, unspecified F41.9 Active 549713330 Problem Major depression F32.9 Active [id number] ALLERGIES No Information ENCOUNTERS Encounter Location Date Diagnosis [employer] [address] [place] [address] May, Major depression F32.9 [facility] [id number] [address] May, Mood disorder F39 [facility] [address], [place] [address] Apr, Mood disorder F39 [employer] [address] [place] [address] Mar, Weight loss R63.4 and Dementia associated with other underlying disease without behavioral disturbance F02.80 [facility] [address] [place] [address] Mar, [facility] [address] [facility] [id number] [address] Mar, Mood disorder F39 [facility] [id number] [address] Mar, [facility] [id number] [place] [address] 5512 Jan, Mood disorder F39 and Dementia associated with other underlying disease without behavioral disturbance F02.80 [facility] [id number] [place] [id number] Jan, Dental examination Z01.20 [employer] [address] [place] [address] Jan, Dementia F03.90 ; Mood disorder F39 ; Cognitive dysfunction F09 ; Hypertension, benign I10 ; Hypokalemia E87.6 and History of DVT of lower extremity Z86.718 [facility] [id number] [place] [address] 4662 Jan, Anxiety disorder, unspecified F41.9 and Mood disorder F39 [facility] [id number] [place] [address] 12501- 6506 Jan, Mood disorder F39 and Dementia associated with other underlying disease without behavioral disturbance F02.80 [facility] [id number] [place] [address] 53469- 1875 Dec, Mood disorder F39 [facility] [id number] [place] [address] 61056- 6758 Dec, Mood disorder F39 [facility] [id number] [place] [address] 61697- 4606 Nov, [facility] [id number] [place] [address] 70107- 4718 Nov, Dementia without behavioral disturbance, unspecified dementia type F03.90 ; Cognitive dysfunction F09 and Major depression F32.9 [facility] [address] [place] [address] October, Encounter for examination for admission to senior care Z02.2 ; Tardive dyskinesia G24.01 ; Major depression F32.9 ; Anxiety disorder, unspecified F41.9 ; Cognitive dysfunction F09 and Dementia without behavioral disturbance, unspecified dementia type F03.90 [facility] [id number] [place] [address] 66025- 0952 October, [facility] [id number] [place] [address] 72490- 0370 October, [facility] [id number] [place] [address] 799605- 7741 Sep, Acute deep vein thrombosis (DVT) of proximal vein of left lower extremity I82.4Y2 [facility] [id number] [place] [address] 08534- 5849 Sep, Mood disorder F39 and Dementia associated with other underlying disease without behavioral disturbance F02.80 [facility] [id number] [place] [address] 05079- 7121 Sep, Mood disorder F39 and Acute deep vein thrombosis (DVT) of proximal vein of left lower extremity I82.4Y2 [facility] [id number] [place] [address] 51844- 9045 Sep, [facility] [address] [place] [id number] Sep, History of DVT (deep vein thrombosis) Z86.718 and Dementia F03.90 [facility] [id number] [place] [address] 11504- 6455 Sep, Mood disorder F39 and Dementia without behavioral disturbance, unspecified dementia type F03.90 [facility] [id number] [place] [address] 62288- 5115 Aug, [facility] [id number] [place] [address] 93210- 5489 Aug, [facility] [id number] [place] [address] [id number] Aug, [facility] [id number] [place] [address] 75917- 6419 Aug, [facility] [address] [address] Aug, Acute deep vein thrombosis (DVT) of proximal vein of left lower extremity I82.4Y2 [facility] [address] [place] [id number] Aug, Left leg swelling M79.89 [facility] [id number] [place] [address] 29654- 8835 Aug, Mood disorder F39 and Dementia without behavioral disturbance, unspecified dementia type F03.90 [facility] [id number] [place] [address] 26730- 4959 Jul, [facility] [id number] [place] [address] 55716- 1457 Jul, Dementia without behavioral disturbance, unspecified dementia type F03.90 and Mood disorder F39 [facility] [address] [place] [id number] Jul, Encounter for examination for admission to senior care Z02.2 ; Rectal bleed K62.5 ; Dementia without behavioral disturbance, unspecified dementia type F03.90 ; Hypertension, benign I10 ; Edema R60.9 and Major depression F32.9 [facility] [id number] [place] [address] [id number] Jul, [facility] [id number] [place] [address] 96607- 2242 Apr, Dementia without behavioral disturbance, unspecified dementia type F03.90 and Mood disorder F39 [facility] [id number] [place] [address] 06767- 4225 Apr, [facility] [id number] [place] [address] 63985- 4336 Feb, Hypertension, benign I10 [facility] [id number] [place] [address] 12766- 6059 Dec, Major depression F32.9 ; Anxiety disorder, unspecified F41.9 ; Cognitive dysfunction F09 and Dementia without behavioral disturbance, unspecified dementia type F03.90 [facility] [id number] [place] [address] 80255- 7761 October, Hypertension, benign I10 [facility] [id number] [place] [address] [id number]- 0413 Sep, Major depression F32.9 ; Anxiety disorder, unspecified F41.9 and Cognitive dysfunction F09 [facility] [address] [place] [address] [id number]- 0076 Apr, Major depression F32.9 and Cognitive dysfunction F09 [facility] [id number] [place] [address] 50018- 9250 Jan, Anxiety disorder, unspecified F41.9 ; Major depression F32.9 and Cognitive dysfunction F09 [facility] [id number] [place] [address] [id number]- 8044 Jan, [facility] [id number] [place] [address] 13252- 3264 Dec, [facility] [id number] [place] [address] 29053- 4105 Dec, [facility] [id number] [place] [address] 47850- 1638 Nov, Anxiety disorder, unspecified F41.9 ; Major depression F32.9 and Cognitive dysfunction F09 [facility] [address] [place] [address] 70536- 6435 October, Dementia without behavioral disturbance, unspecified dementia type F03.90 [facility] [id number] [place] [address] 26718- 1850 Sep, Cognitive dysfunction F09 and Edema R60.9 [facility] [id number] [place] [address] 60295- 8955 Sep, Cognitive dysfunction F09 and Edema R60.9 [facility] [id number] [place] [address] 05866- 2601 Aug, 2016 Self-care deficit for medication administration R41.89 ; Self-care deficit in patient living alone R46.89 and Cognitive dysfunction F09 [facility] [id number] [place] [address] 73212- 4948 Aug, 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 and Unspecified intracranial injury without loss of consciousness, sequela S06.9X0S [facility] [id number] [place] [address] 92834- 6695 Jul, [facility] [id number] [place] [address] 42019- 0947 Jun, Anxiety disorder, unspecified F41.9 and Major depression F32.9 [facility] [id number] [place] [address] 55651- 3644 Jun, [facility] [id number] [place] [address] 27079- 8345 May, [facility] [id number] [place] [address] 39428- 7548 May, Nausea R11.0 [facility] [id number] [place] [address] 30427- 3410 Apr, [facility] [id number] [place] [address] 91077- 4546 Mar, Major depression F32.9 [facility] [id number] [place] [address] 23751- 5104 Mar, Encounter for immunization Z23 [facility] [id number] [place] [address] 23294- 4204 Mar, Major depression F32.9 and Anxiety disorder, unspecified F41.9 [facility] [id number] [place] [address] 32584- 8967 Dec, Major depression, chronic 296.20 and Anxiety disorder, unspecified 300.00 [facility] [id number] [place] [address] 45658- 7430 October, Hypertension 401.9 [facility] [address] 68436- 5369 14 Sep, 2014 [facility] [place] [facility] [address] [id number] [place] [address]- 8629 13 Sep, 2014 [facility] [place] [facility] [address] [id number] [place] [address]- 4001 18 Jul, 2014 [facility] [place] [facility] [address] [facility] [id number] [place] [address]- 5608 16 Jul, 2014 [facility] [place] [facility] [address] [id number] [place] [address]- 9361 16 Jul, 2014 [facility] [place] [facility] [address] [id number] [place] [address]- 1661 May, [facility] [place] [facility] [address] [id number] [place] [address]- 3257 May, [facility] [place] [facility] [address] [facility] [id number] [place] [address]- 5832 May, [facility] [place] [facility] [address] [id number] [place] [address]- 1574 May, [facility] [place] [facility] [address] [facility] [id number] [place] [address]- 0408 Apr, [facility] [place] [facility] [address] [facility] [id number] [place] [address]- 7036 Apr, [facility] [place] [facility] [address] [id number] [place] [address]- 4577 Feb, [facility] [place] [facility] [address] [id number] [address]- 3130 Feb, [facility] [place] [facility] [address] [id number] [place] [address]- 4170 Jan, [facility] [place] [facility] [address] [id number] [place] [address]- 3915 Jan, [facility] [place] [facility] [address] [facility] [id number] [place] [address]- 6293 Jan, [facility] [place] [facility] [address] [id number] [place] [address]- 5240 Jan, [facility] [place] [facility] [address] [id number] [place] [address]- 9277 Dec, [facility] [place] [facility] [address] [id number] [place] [address]- 0621 Dec, [facility] [place] [facility] [address] [id number] [place] [address]- 2687 Nov, [facility] [place] [facility] [address] [id number] [place] [address]- 3337 Nov, [facility] [place] [facility] [address] [id number] [place] [address]- 8738 Nov, [facility] [place] [facility] [address] [id number] [place] [address]- 3327 Nov, [facility] [place] [facility] [address] [id number] [place] [address]- 5355 October, [facility] [place] [facility] [address] [id number] [place] [address]- 3582 October, [facility] [place] [facility] [address] [id number] [place] [address]- 9263 Sep, [facility] [place] [facility] [address] [id number] [place] [address]- 5594 Sep, [facility] [place] [facility] [address] [id number] [place] [address]- 7028 Sep, [facility] [place] [facility] [address] [id number] [place] [address]- 7603 Sep, [facility] [place] [facility] [address] [id number] [place] [address]- 2036 Sep, [facility] [place] [facility] [address] [id number] [place] [address]- 5898 Sep, [facility] [place] [facility] [address] [id number] [place] [address]- 5943 Aug, [facility] [place] [facility] [address] [id number] [place] [address]- 5906 Aug, [facility] [place] [facility] [address] [id number] [place] [address]- 2996 Jul, [facility] [place] [facility] [address] [facility] [id number] [place] [address]- 2806 Jul, [facility] [place] [facility] [address] [id number] [place] [address]- 5343 May, [facility] [place] [facility] [address] [id number] [place] [address]- 7553 May, [facility] [place] [facility] [address] [id number] [place] [address]- 4724 May, [facility] [place] [facility] [address] [id number] [place] [address]- 5158 May, [facility] [place] [facility] [address] [id number] [place] [address]- 3839 May, [facility] [place] [facility] [address] [id number] [place] [address]- 3071 May, [facility] [place] [facility] [address] [facility] [id number] [place] [address]- 1279 Apr, [facility] [place] [facility] [address] [id number] [place] [address]- 1273 Apr, [facility] [place] [facility] [address] [id number] [address]- 7568 Apr, [facility] [place] [facility] [address] [id number] [place] [address]- 2698 Apr, [facility] [place] [facility] [address] [facility] [id number] [place] [address]- 0703 Apr, [facility] [place] [facility] [address] [facility] [id number] [place] 4716 Apr, [facility] [place] [facility] [address] [id number] [place] [address]- 9830 Feb, [facility] [address] [id number] [place] [address]- 3959 Feb, [facility] [address] [id number] [place] [address]- 4622 Feb, [facility] [address] [id number] [place] [address]- 0043 Feb, [facility] [address] [id number] [place] [address]- 0978 Jan, [facility] [address] [id number] [place] [address]- 8448 Dec, [facility] [address] [id number] [place] [address]- 9695 Dec, [facility] [address] [id number] [place] [address]- 8357 Dec, [facility] [address] [id number] [place] [address]- 5229 Dec, [facility] [address] [id number] [place] [address]- 6562 Nov, [facility] [address] [id number] [place] [address]- 9925 Nov, [facility] [address] [id number] [place] [address]- 5941 October, [facility] [address] [id number] [place] [address]- 2540 October, [facility] [address] [id number] [place] [address]- 2529 October, [facility] [address] [id number] [place] [address]- 2546 October, [facility] [address] [id number] [place] [address]- 2546 Sep, [facility] [address] [id number] [place] [address]- 5190 20 Aug, 2012 [facility] [place] [facility] [address] [id number] [place] [address]- 1179 18 Aug, 2012 [facility] [place] [facility] [address] [id number] [place] [address]- 3031 15 Aug, 2012 [facility] [place] [facility] [address] [id number] [place] [address]- 4105 06 Aug, 2012 [facility] [place] [facility] [address] [id number] [place] [address]- 5966 Jul, [facility] [place] [facility] [address] [id number] [place] [address]- 7960 Jul, [facility] [place] [facility] [address] [id number] [place] [address]- 6880 Jul, [facility] [place] [facility] [address] [id number] [place] [address]- 3296 Jun, [facility] [place] [facility] [address] [id number] [place] [address]- 9052 Jun, [facility] [place] [facility] [address] [facility] [id number] [place] [address]- 4571 May, [facility] [place] [facility] [address] [id number] [place] [address]- 2449 May, [facility] [place] [facility] [address] [id number] [place] [address]- 3875 Apr, [facility] [place] [facility] [address] [id number] [place] [address]- 4034 Apr, [facility] [place] [facility] [address] [id number] [place] 6446 Apr, [facility] [place] [facility] [address] [id number] [place] 9626 Apr, [facility] [place] [facility] [address] [id number] [place] [address]- 9641 Apr, [facility] [place] [facility] [address] [id number] [place] [address]- 9035 Apr, [facility] [place] [facility] [address] [id number] [place] [address]- 5448 Mar, [facility] [place] [facility] [address] [id number] [place] [address]- 7126 Mar, [facility] [place] [facility] [address] [id number] [place] [address]- 9848 Mar, [facility] [place] [facility] [address] [id number] [place] [address]- 9809 Mar, [facility] [place] [facility] [address] [id number] [place] [address]- 2591 Mar, [facility] [place] [facility] [address] [id number] [place] [address]- 0228 Mar, [facility] [place] [facility] [address] [id number] [place] [address]- 8814 Mar, [facility] [place] [facility] [address] [id number] [place] [address]- 5274 Feb, [facility] [place] [facility] [address] [id number] [place] [address]- 6199 Feb, [facility] [place] [facility] [address] [id number] [place] [address]- 1388 Jan, [facility] [place] [facility] [address] [id number] [place] [address]- 3220 Dec, [facility] [place] [facility] [address] [id number] [place] [address]- 4897 Dec, [facility] [place] [facility] [address] [id number] [place] [address]- 6759 Nov, [facility] [place] [facility] [address] [id number] [place] [address]- 3986 Nov, [facility] [place] [facility] [address] [id number] [place] [address]- 6325 13 Nov, 2011 [facility] [place] [facility] [address] [id number] [place] [address]- 7614 October, [facility] [place] [facility] [address] [id number] [place] [address]- 7184 Sep, [facility] [place] [facility] [address] [id number] [place] [address]- 6556 16 Sep, 2011 [facility] [place] [facility] [address] [id number] [place] [address]- 8061 04 Sep, 2011 [facility] [place] [facility] [address] [id number] [place] [address]- 6928 26 Aug, 2011 [facility] [place] [facility] [address] [id number] [place] [address]- 5036 Aug, [facility] [place] [facility] [address] [id number] [place] [address]- 5922 Aug, [facility] [place] [facility] [address] [id number] [place] [address]- 3846 15 Aug, 2011 [facility] [place] [facility] [address] [id number] [place] [address]- 4203 14 Aug, 2011 [facility] [place] [facility] [address] [id number] [place] [address]- 3526 Aug, [facility] [place] [facility] [address] [id number] [place] [address]- 6438 08 Aug, 2011 [facility] [place] [facility] [address] [id number] [place] [address]- 0515 05 Aug, 2011 [facility] [place] [facility] [address] [id number] [place] [address]- 8374 27 Jul, 2011 [facility] [place] [facility] [address] [id number] [place] [address]- 1566 Jul, [facility] [place] [facility] [address] [id number] [place] [address]- 7167 20 Jul, 2011 [facility] [address] [id number] [place] [address]- 6975 15 Jul, 2011 [facility] [address] [id number] [place] 06 Jul, 2011 [facility] [address] [facility] [id number] [place] [address] Jul, [facility] [place] [facility] [address] [id number] [place] [address] Jun, [facility] [address] [id number] [place] [address] Jun, [facility] [address] [facility] [id number] [place] [address] Jun, [facility] [address] [facility] [id number] [place] [address] Jun, [facility] [address] [facility] [id number] [place] [address] May, [facility] [address] [facility] [id number] [place] [address] May, [facility] [place] [facility] [address] [facility] [id number] [place] [address] May, [facility] [address] [facility] [id number] [place] [address] May, [facility] [place] [facility] [address] [facility] [id number] [place] [address] May, [facility] [place] [facility] [address] [facility] [id number] [place] [address] 30 Apr, 2011 [facility] [place] [facility] [address] [facility] [id number] [place] [address] 14 Apr, 2011 [facility] [place] [facility] [address] [facility] [id number] [place] [address] 31 Mar, 2011 [facility] [place] [facility] [id number] [address] 15 Feb, 2011 [facility] [id number] [address] Feb, [facility] [id number] [address] May, [facility] [id number] [address] Apr, [facility] [id number] [address] Apr, [facility] [id number] [place] [address] Apr, [facility] [id number] [place] [address] Apr, [facility] [id number] [place] [address] Apr, [facility] [id number] [place] [address] Apr, [facility] [id number] [address] Mar, [facility] [id number] [place] [address] Mar, [facility] [id number] [address] Sep, IMMUNIZATIONS No Known Immunizations SOCIAL HISTORY Never Assessed REASON FOR VISIT PLAN OF CARE Activity Details Follow Up prn Reason: VITAL SIGNS MEDICATIONS Medication Instructions Dosage Frequency Start Date End Date Duration Status Fluoxetine HCl 40 MG Orally Once a day 1 capsule 24h May, 30 day(s) Active RESULTS No Results PROCEDURES Procedure Date Ordered Result Body Site Minor complication (15 mins) May 22, 2018 INSTRUCTIONS MEDICATIONS ADMINISTERED No Known Medications MEDICAL (GENERAL) HISTORY Type Description Date Medical History hypertension Medical History anxiety Medical History depression (hx of ECT x2) Medical History insomnia Medical History dementia Surgical History appendectomy Surgical History hysterectomy 1985 Surgical History section x2 (1978 & 1980) Surgical History colonoscopy Tubular adenoma, ischemic colitis 07/2017 Hospitalization History multiple admissions r/t depression; pt has had electrical lesvia therapy multiple times and 2 suicide attempts Hospitalization History Ischemic colitis, dementia, generalized debility-[facility] 07/30/17
--- OUTSIDE RECORDS SUMMARY | 2018-06-23 23:09 | XMS REPORT ---
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 868846701 Problem Anxiety disorder, unspecified F41.9 Active 294015361 Problem Major depression F32.9 Active 521316830 ALLERGIES No Information ENCOUNTERS Encounter Location Date Diagnosis [place] [id number] [address] May, Mood disorder F39 [place] [id number] [place] [address] Apr, Mood disorder F39 [facility] [address] [place] [address] Mar, Weight loss R63.4 and Dementia associated with other underlying disease without behavioral disturbance F02.80 [facility] [address] [place] [address] Mar, [facility] [id number] [address] Mar, Mood disorder F39 [place] [id number], [place] [address] Mar, [place] [address] [address] Jan, Mood disorder F39 and Dementia associated with other underlying disease without behavioral disturbance F02.80 [facility] [id number] [id number] Jan, Dental examination Z01.20 [facility] [address] [place] [address] Jan, Dementia F03.90 ; Mood disorder F39 ; Cognitive dysfunction F09 ; Hypertension, benign I10 ; Hypokalemia E87.6 and History of DVT of lower extremity Z86.718 [facility] [id number] [place] [address] Jan, Anxiety disorder, unspecified F41.9 and Mood disorder F39 [facility] [id number] [place] [address]- 8[address] Jan, Mood disorder F39 and Dementia associated with other underlying disease without behavioral disturbance F02.80 [facility] [id number] [place] [address]- 3936 Dec, Mood disorder F39 [facility] [id number] [place] [address] 6270 Dec, Mood disorder F39 [facility] [id number] [place] [address]- 0064 Nov, [facility] [id number] [place] [address] 42498- 3930 Nov, Dementia without behavioral disturbance, unspecified dementia type F03.90 ; Cognitive dysfunction F09 and Major depression F32.9 [facility] [employer] [address] [place] [address] October, Encounter for examination for admission to fci Z02.2 ; Tardive dyskinesia G24.01 ; Major depression F32.9 ; Anxiety disorder, unspecified F41.9 ; Cognitive dysfunction F09 and Dementia without behavioral disturbance, unspecified dementia type F03.90 [facility] [id number] [place] [address] 38[address] October, [facility] [id number] [place] [address]- 0465 October, [facility] [address] [address] Sep, Acute deep vein thrombosis (DVT) of proximal vein of left lower extremity I82.4Y2 [facility] [id number] [address] Sep, Mood disorder F39 and Dementia associated with other underlying disease without behavioral disturbance F02.80 [facility] [id number], [place] [address] 2542 Sep, Mood disorder F39 and Acute deep vein thrombosis (DVT) of proximal vein of left lower extremity I82.4Y2 [facility] [address] [address] Sep, [facility] [address] [place] [id number] Sep, History of DVT (deep vein thrombosis) Z86.718 and Dementia F03.90 [facility] [id number], [place] [address] Sep, Mood disorder F39 and Dementia without behavioral disturbance, unspecified dementia type F03.90 [facility] [address], [place] [address] Aug, [facility] [id number], [place] [address] Aug, [facility] [id number] [id number] Aug, [facility] [address], [place] [address] Aug, [facility] [id number] [place] [address] Aug, Acute deep vein thrombosis (DVT) of proximal vein of left lower extremity I82.4Y2 [facility] [address] [place] [id number] Aug, Left leg swelling M79.89 [facility] [id number] [place] [address]- 7017 Aug, Mood disorder F39 and Dementia without behavioral disturbance, unspecified dementia type F03.90 [facility] [id number] [place] [address]- 978[address] Jul, [place] [address] [address] Jul, Dementia without behavioral disturbance, unspecified dementia type F03.90 and Mood disorder F39 [facility] [address] [place] [id number] Jul, Encounter for examination for admission to fci Z02.2 ; Rectal bleed K62.5 ; Dementia without behavioral disturbance, unspecified dementia type F03.90 ; Hypertension, benign I10 ; Edema R60.9 and Major depression F32.9 [facility] [address] [id number] Jul, [place] [address] [place] [id number] [place] [address] 74[address]- 5131 Apr, Dementia without behavioral disturbance, unspecified dementia type F03.90 and Mood disorder F39 [facility] [address] [address] [id number] [place] [address] 816[address]- 7683 Apr, [place] [address] [place] [id number] [place] [address] 21614- 3129 Feb, Hypertension, benign I10 [facility] [address] [id number] [place] [address] 18249- 5153 Dec, Major depression F32.9 ; Anxiety disorder, unspecified F41.9 ; Cognitive dysfunction F09 and Dementia without behavioral disturbance, unspecified dementia type F03.90 [facility] [id number] [place] [address] 77474- 0845 October, Hypertension, benign I10 [place] [address] [address] [id number] [place] [address] 66085- 5839 Sep, Major depression F32.9 ; Anxiety disorder, unspecified F41.9 and Cognitive dysfunction F09 [place] [address] [address] [id number] [place] [address] 02845- 6033 Apr, Major depression F32.9 and Cognitive dysfunction F09 [place] [address] [address] [id number] [place] [address] 80075- 0180 Jan, Anxiety disorder, unspecified F41.9 ; Major depression F32.9 and Cognitive dysfunction F09 [place] [address] [address] [id number] [place] [address] 06277- 9979 Jan, [place] [address] [id number] [place] [address] 92549- 4111 Dec, [place] [address] [id number] [place] [address] 37735- 3268 Dec, [place] [address] [id number] [place] [address] 96801- 3437 Nov, Anxiety disorder, unspecified F41.9 ; Major depression F32.9 and Cognitive dysfunction F09 [place] [address] [id number] [place] [address] 69721- 2568 October, Dementia without behavioral disturbance, unspecified dementia type F03.90 [place] [address] [place] [id number] [place] [address] 32647- 9619 Sep, Cognitive dysfunction F09 and Edema R60.9 [place] [address] [place] [id number] [place] [address] 23798- 9920 Sep, Cognitive dysfunction F09 and Edema R60.9 [place] [address] [place] [id number] [place] [address] 99333- 4652 Aug, Self-care deficit for medication administration R41.89 ; Self-care deficit in patient living alone R46.89 and Cognitive dysfunction F09 [place] [address] [place] [id number] [place] [address] 41435- 8913 Aug, 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 and Unspecified intracranial injury without loss of consciousness, sequela S06.9X0S [facility] [id number] [place] [address] 29632- 6978 Jul, [facility] [address] [id number] [place] [address] 73309- 8691 Jun, Anxiety disorder, unspecified F41.9 and Major depression F32.9 [facility] [address] [id number] [place] [address] 53366- 1832 Jun, [facility] [address] [id number] [place] [address] 45763- 7004 May, [facility] [address] [place] [id number] [place] [address] 09981- 1685 May, Nausea R11.0 [place] [address] 40978- 7262 Apr, [facility] [address] [id number] [place] [address] 45218- 1388 Mar, Major depression F32.9 [place] [address] [id number] [place] [address] 46463- 1908 Mar, Encounter for immunization Z23 [facility] [address] [id number] [place] [address] 73109- 4109 Mar, Major depression F32.9 and Anxiety disorder, unspecified F41.9 [facility] [address] [id number] [place] [address] 15682- 3011 Dec, Major depression, chronic 296.20 and Anxiety disorder, unspecified 300.00 [facility] [address] [id number] [place] [address] 80321- 4264 October, Hypertension 401.9 [facility] [address] [id number] [place] [address] 32343- 5651 Sep, [facility] [address] 06199- 5841 Sep, [facility] [place] [facility] [address] [id number] [place] [address]- 4520 Jul, [facility] [place] [facility] [address] [id number] [place] [address]- 9305 Jul, [facility] [place] [facility] [address] [facility] [id number] [place] [address]- 8715 Jul, [facility] [place] [facility] [address] [id number] [place] [address]- 8010 May, [facility] [place] [facility] [address] [id number] [place] [address]- 2885 May, [facility] [place] [facility] [address] [id number] [place] [address]- 1574 May, [facility] [place] [facility] [address] [facility] [id number] [place] [address]- 8197 May, [facility] [place] [facility] [address] [id number] [place] [address]- 0860 Apr, [facility] [place] [facility] [address] [facility] [id number] [place] [address]- 3851 Apr, [facility] [place] [facility] [address] [facility] [id number] [place] [address]- 1807 Feb, [facility] [place] [facility] [address] [id number] [place] [address]- 8365 Feb, [facility] [place] [facility] [address] [id number] [place] [address]- 4273 Jan, [facility] [place] [facility] [address] [id number] [place] [address]- 0882 Jan, [facility] [place] [facility] [address] [facility] [id number] [place] [address]- 3679 Jan, [facility] [place] [facility] [address] [facility] [id number] [place] [address]- 3296 Jan, [facility] [place] [facility] [address] [id number] [place] [address]- 5391 Dec, [facility] [place] [facility] [address] [id number] [place] [address]- 4812 Dec, [facility] [place] [facility] [address] [id number] [place] [address]- 6357 Nov, [facility] [place] [facility] [address] [id number] [place] [address]- 3067 Nov, [facility] [place] [facility] [address] [id number] [place] [address]- 3485 Nov, [facility] [place] [facility] [address] [id number] [place] [address]- 6708 Nov, [facility] [place] [facility] [address] [id number] [place] [address]- 6261 October, [facility] [place] [facility] [address] [id number] [place] [address]- 9480 October, [facility] [place] [facility] [address] [id number] [place] [address]- 1435 Sep, [facility] [place] [facility] [address] [id number] [place] [address]- 6546 Sep, [facility] [place] [facility] [address] [id number] [place] [address]- 5517 Sep, [facility] [place] [facility] [address] [id number] [place] [address]- 8992 Sep, [facility] [place] [facility] [address] [id number] [place] [address]- 9592 Sep, [facility] [place] [facility] [address] [id number] [place] [address]- 7726 Sep, [facility] [place] [facility] [address] [id number] [place] [address]- 9928 Aug, [facility] [place] [facility] [address] [id number] [place] [address]- 9501 Aug, [facility] [place] [facility] [address] [id number] [place] [address]- 3444 Jul, [facility] [place] [facility] [address] [id number] [place] [address]- 4466 Jul, [facility] [place] [facility] [address] [facility] [id number] [place] 3060 May, [facility] [place] [facility] [address] [id number] [place] 4339 May, [facility] [place] [facility] [address] [id number] [place] [address]- 0736 May, [facility] [place] [facility] [address] [id number] [place] [address]- 4456 May, [facility] [place] [facility] [address] [id number] [place] [address]- 3225 May, [facility] [place] [facility] [address] [id number] [place] [address]- 8457 May, [facility] [place] [facility] [address] [id number] [place] [address]- 7513 Apr, [facility] [place] [facility] [address] [id number] [place] [address]- 2272 Apr, [facility] [place] [facility] [address] [id number], [place] [address]- 6256 Apr, [facility] [place] [facility] [address] [id number], [place] [address]- 0249 Apr, [facility] [place] [facility] [address] [id number] [place] 0712 Apr, [facility] [place] [facility] [address] [id number], [place] [address]- 8732 Apr, [facility] [place] [facility] [address] [facility] [id number] [place] [address]- 2379 Feb, [facility] [place] [facility] [address] [id number] [place] [address]- 5804 Feb, [facility] [address] [id number] [place] [address]- 1470 Feb, [facility] [address] [id number] [place] [address]- 3946 Feb, [facility] [address] [id number] [place] [address]- 6575 Jan, [facility] [address] [id number] [place] [address]- 8491 Dec, [facility] [address] [id number] [place] [address]- 0331 Dec, [facility] [address] [id number] [place] [address]- 9682 Dec, [facility] [address] [id number] [place] [address]- 5882 Dec, [facility] [address] [id number] [place] [address]- 3628 Nov, [facility] [address] [id number] [place] [address]- 9633 Nov, [facility] [address] [id number] [place] 2726 October, [facility] [address] [id number] [place] [address]- 6077 October, [facility] [address] [id number] [place] [address]- 0238 October, [facility] [place] [facility] [address] [id number] [place] [address]- 7643 October, [facility] [place] [facility] [address] [id number] [place] [address]- 2546 Sep, [facility] [address] [id number] [place] [address]- 1675 Aug, [facility] [place] [facility] [address] [id number] [place] [address]- 6476 Aug, [facility] [place] [facility] [address] [id number] [place] [address]- 1886 Aug, [facility] [place] [facility] [address] [id number] [place] [address]- 9674 Aug, [facility] [place] [facility] [address] [id number] [place] [address]- 3456 Jul, [facility] [place] [facility] [address] [id number] [place] [address]- 7892 Jul, [facility] [place] [facility] [address] [id number] [place] [address]- 8173 Jul, [facility] [place] [facility] [address] [id number] [place] [address]- 8795 Jun, [facility] [place] [facility] [address] [id number] [place] [address]- 9836 Jun, [facility] [place] [facility] [address] [id number] [place] [address]- 0810 May, [facility] [place] [facility] [address] [id number] [place] [address]- 6354 May, [facility] [place] [facility] [address] [id number], [place] [address]- 3741 Apr, [facility] [place] [facility] [address] [id number], [place] [address]- 4139 Apr, [facility] [place] [facility] [address] [id number] [place] [address]- 7527 Apr, [facility] [place] [facility] [address] [id number] [place] [address]- 0006 Apr, [facility] [place] [facility] [address] [id number], [place] [address]- 2726 Apr, [facility] [place] [facility] [address] [id number], [place] [address]- 8315 Apr, [facility] [place] [facility] [address] [id number] [place] [address]- 1494 Mar, [facility] [place] [facility] [address] [id number] [place] [address]- 3863 Mar, [facility] [place] [facility] [address] [facility] [id number] [place] [address]- 5760 Mar, [facility] [place] [facility] [address] [id number] [place] [address]- 5056 Mar, [facility] [place] [facility] [address] [facility] [id number] [place] [address], [place] [address]- 7058 Mar, [facility] [place] [facility] [address] [facility] [id number] [place] [address]- 2957 Mar, [facility] [place] [facility] [id number] [place] [address]- 7754 Mar, [facility] [place] [facility] [address] [facility] [id number] [place] [address]- 2498 Feb, [facility] [place] [facility] [id number] [place] [address]- 1151 Feb, [facility] [place] [facility] [id number] [address]- 0742 Jan, [facility] [place] [facility] [address] [facility] [id number], [place] [address]- 7635 Dec, [facility] [place] [facility] [address] [facility] [id number], [place] [address]- 0774 Dec, [facility] [place] [facility] [address] [facility] [id number] [place] [address]- 4943 Nov, [facility] [place] [facility] [address] [facility] [id number] [place] [address]- 0250 Nov, [facility] [place] [facility] [id number], [place] [address]- 7148 Nov, [facility] [place] [facility] [address] [id number] [place] [address]- 3351 October, [facility] [place] [facility] [address] [id number] [place] [address]- 6486 20 Sep, 2011 [facility] [place] [facility] [address] [id number] [place] [address]- 5576 16 Sep, 2011 [facility] [place] [facility] [address] [id number] [place] [address]- 2160 04 Sep, 2011 [facility] [place] [facility] [address] [id number] [place] [address]- 9402 26 Aug, 2011 [facility] [place] [facility] [address] [id number] [place] [address]- 4822 21 Aug, 2011 [facility] [place] [facility] [address] [id number] [place] [address] 20 Aug, 2011 [facility] [place] [facility] [address] [id number] [place] [address] 15 Aug, 2011 [facility] [place] [facility] [address] [id number] [place] [address] 14 Aug, 2011 [facility] [place] [facility] [address] [id number] [place] [address] 12 Aug, 2011 [facility] [place] [facility] [address] [id number] [place] [address] 08 Aug, 2011 [facility] [place] [facility] [address] [id number] [place] [address] 05 Aug, 2011 [facility] [place] [facility] [address] [id number] [place] [address] Jul, [facility] [place] [facility] [address] [id number] [place] [address] Jul, [facility] [place] [facility] [address] [id number] [place] [address] Jul, [facility] [place] [facility] [address] [id number] [address] 15 Jul, 2011 [facility] [address] [id number] [place] [address] Jul, [facility] [address] [id number] [place] [address] Jul, [facility] [address] [id number] [place] [address] Jun, [facility] [place] [facility] [address] [id number] [place] [address] Jun, [facility] [address] [id number] [place] [address]647 Jun, [facility] [address] [id number] [place] [address] Jun, [facility] [address] [id number] [place] [address] May, [facility] [place] [facility] [address] [id number] [place] [address] May, [facility] [address] [id number] [place] [address] May, [facility] [place] [facility] [address] [facility] [id number] [place] [address] May, [facility] [address] [id number], [place] [address] May, [facility] [place] [facility] [address] [id number], [place] [address] 30 Apr, 2011 [facility] [place] [facility] [address] [id number] [place] [address] 14 Apr, 2011 [facility] [place] [facility] [address] [id number] [place] [address]23 31 Mar, 2011 [facility] [place] [facility] [address] [id number] [place] [address] 15 Feb, 2011 [facility] [place] [facility] [id number] [address] Feb, [facility] [id number] [address] May, [facility] [id number], [place] [address] Apr, [facility] [id number] [address] Apr, [facility] [id number] [address] Apr, [facility] [id number] [place] [address] Apr, [facility] [id number], [place] [address] Apr, [facility] [id number] [place] [address] Apr, [facility] [id number], [place] [address] Mar, [facility] [id number], [place] [address] Mar, [facility] [id number], [place] [address] Sep, IMMUNIZATIONS No Known Immunizations SOCIAL HISTORY Never Assessed REASON FOR VISIT medication change--correction request PLAN OF CARE VITAL SIGNS MEDICATIONS Medication Instructions Dosage Frequency Start Date End Date Duration Status Trihexyphenidyl HCl 2 MG Orally in AM, At noon and 0.5 tablet At HS 1 tablet Jul, 30 days Active RESULTS No Results PROCEDURES No Known [...] attempts Hospitalization History Ischemic colitis, dementia, generalized debility-[facility] 07/30/17
--- OUTSIDE RECORDS SUMMARY | 2018-06-23 23:09 | XMS REPORT ---
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 937599946 Problem Anxiety disorder, unspecified F41.9 Active 630900369 Problem Major depression F32.9 Active 277413354 ALLERGIES Substance Reaction Event Type Date Status Stadol hives Drug Allergy Mar, Active Morphine Sulfate hives Drug Allergy Mar, Active Iodinated Contrast Media - Iv Dye Unknown Non Drug Allergy Mar, Active ENCOUNTERS Encounter Location Date Diagnosis [facility] [address] [place] [address] Mar, Weight loss R63.4 and Dementia associated with other underlying disease without behavioral disturbance F02.80 [facility] [address] [place] [address] Mar, [facility] [address] [id number] [address] Mar, Mood disorder F39 [facility] [address] [facility] [id number] [address] Mar, [facility] [address] [id number] [address] Jan, Mood disorder F39 and Dementia associated with other underlying disease without behavioral disturbance F02.80 [facility] [address] [id number] [id number] Jan, Dental examination Z01.20 [facility] [address] [place] [address] Jan, Dementia F03.90 ; Mood disorder F39 ; Cognitive dysfunction F09 ; Hypertension, benign I10 ; Hypokalemia E87.6 and History of DVT of lower extremity Z86.718 [facility] [id number] [place] [address] 25059- 0828 Jan, Anxiety disorder, unspecified F41.9 and Mood disorder F39 [facility] [id number] [place] [address] 92856- 7591 Jan, Mood disorder F39 and Dementia associated with other underlying disease without behavioral disturbance F02.80 [facility] [id number] [place] [address] 38778- 9197 Dec, Mood disorder F39 [facility] [id number] [place] [address] 39193- 4292 Dec, Mood disorder F39 [facility] [id number] [place] [address] 55504- 5424 Nov, [facility] [id number] [place] [address] 61750- 4548 Nov, Dementia without behavioral disturbance, unspecified dementia type F03.90 ; Cognitive dysfunction F09 and Major depression F32.9 [facility] [address] [place] [address] October, Encounter for examination for admission to intermediate Z02.2 ; Tardive dyskinesia G24.01 ; Major depression F32.9 ; Anxiety disorder, unspecified F41.9 ; Cognitive dysfunction F09 and Dementia without behavioral disturbance, unspecified dementia type F03.90 [facility] [id number] [place] [address] 73999- 1406 October, [facility] [id number] [place] [address] 33204- 8289 October, [facility] [address] [place] [address] 30 Sep, 2017 Acute deep vein thrombosis (DVT) of proximal vein of left lower extremity I82.4Y2 [facility] [id number] [place] [address] 37750- 0618 Sep, Mood disorder F39 and Dementia associated with other underlying disease without behavioral disturbance F02.80 [facility] [id number] [place] [address] 56327- 7160 Sep, Mood disorder F39 and Acute deep vein thrombosis (DVT) of proximal vein of left lower extremity I82.4Y2 [facility] [id number] [place] [address] 86629- 8406 Sep, [facility] [address] [place] [id number] Sep, History of DVT (deep vein thrombosis) Z86.718 and Dementia F03.90 [facility] [id number] [place] [address] 94764- 4036 Sep, Mood disorder F39 and Dementia without behavioral disturbance, unspecified dementia type F03.90 [facility] [id number] [place] [address] 90117- 7154 Aug, [facility] [id number] [place] [address] 88202- 1257 Aug, [facility] [id number] [place] [address] [id number] Aug, [facility] [id number] [place] [address] 08847- 5618 Aug, [facility] [id number] [place] [address] 32912- 6044 Aug, Acute deep vein thrombosis (DVT) of proximal vein of left lower extremity I82.4Y2 [facility] [address] [place] [id number] Aug, Left leg swelling M79.89 [facility] [id number] [place] [address] 22313- 7031 Aug, Mood disorder F39 and Dementia without behavioral disturbance, unspecified dementia type F03.90 [facility] [id number] [place] [address] 37459- 4138 Jul, [facility] [id number] [place] [address] 41294- 1302 Jul, Dementia without behavioral disturbance, unspecified dementia type F03.90 and Mood disorder F39 [facility] [address] [place] [id number] Jul, Encounter for examination for admission to intermediate Z02.2 ; Rectal bleed K62.5 ; Dementia without behavioral disturbance, unspecified dementia type F03.90 ; Hypertension, benign I10 ; Edema R60.9 and Major depression F32.9 [facility] [id number] [place] [address] [id number] Jul, [facility] [id number] [place] [address] 45908- 6126 Apr, Dementia without behavioral disturbance, unspecified dementia type F03.90 and Mood disorder F39 [facility] [id number] [place] [address] 38088- 0866 Apr, [facility] [id number] [place] [address] 61488- 4604 Feb, Hypertension, benign I10 [facility] [id number] [place] [address] 36741- 4537 Dec, Major depression F32.9 ; Anxiety disorder, unspecified F41.9 ; Cognitive dysfunction F09 and Dementia without behavioral disturbance, unspecified dementia type F03.90 [facility] [id number] [place] [address] 79037- 2368 October, Hypertension, benign I10 [facility] [id number] [place] [address] 61435- 3046 Sep, Major depression F32.9 ; Anxiety disorder, unspecified F41.9 and Cognitive dysfunction F09 [facility] [id number] [place] [address] 77035- 9609 Apr, Major depression F32.9 and Cognitive dysfunction F09 [facility] [id number] [place] [address] 26846- 3246 Jan, Anxiety disorder, unspecified F41.9 ; Major depression F32.9 and Cognitive dysfunction F09 [facility] [id number] [place] [address] 57326- 0158 Jan, [facility] [id number] [place] [address] 42416- 7464 Dec, [facility] [id number] [place] [address] 62923- 7341 Dec, [facility] [id number] [place] [address] 25665- 6988 Nov, Anxiety disorder, unspecified F41.9 ; Major depression F32.9 and Cognitive dysfunction F09 [facility] [id number] [place] [address] 38168- 1094 October, Dementia without behavioral disturbance, unspecified dementia type F03.90 [facility] [id number] [place] [address] 77873- 5625 Sep, Cognitive dysfunction F09 and Edema R60.9 [facility] [id number] [place] [address] 96435- 6667 Sep, Cognitive dysfunction F09 and Edema R60.9 [facility] [id number] [place] [address] 97031- 8387 Aug, 2016 Self-care deficit for medication administration R41.89 ; Self-care deficit in patient living alone R46.89 and Cognitive dysfunction F09 [facility] [id number] [place] [address] 94179- 2774 Aug, 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 and Unspecified intracranial injury without loss of consciousness, sequela S06.9[facility]S [facility] [id number] [place] [address] 72254- 2597 Jul, [facility] [id number] [place] [address] 80740- 9841 Jun, Anxiety disorder, unspecified F41.9 and Major depression F32.9 [facility] [id number] [place] [address] 29677- 7673 Jun, [facility] [id number] [place] [address] 90775- 0169 May, [facility] [id number] [place] [address] 08736- 4304 May, Nausea R11.0 [facility] [id number] [place] [address] 84679- 9678 Apr, [facility] [address] 48808- 0480 Mar, Major depression F32.9 [facility] [id number] [place] [address] 09200- 7935 Mar, Encounter for immunization Z23 [facility] [id number] [place] [address] 11184- 3742 Mar, Major depression F32.9 and Anxiety disorder, unspecified F41.9 [facility] [id number] [place] [address] 78387- 1478 Dec, Major depression, chronic 296.20 and Anxiety disorder, unspecified 300.00 [facility] [id number] [place] [address] 62831- 0610 October, Hypertension 401.9 [facility] [id number] [place] [address] 72852- 6816 Sep, [facility] [id number] [place] [address] 55238- 7805 Sep, [facility] [id number] [place] [address] 16214- 8577 Jul, [facility] [place] [facility] [address] [id number] [place] [address]- 8292 Jul, [facility] [place] [facility] [address] [id number] [place] [address]- 7841 Jul, [facility] [place] [facility] [address] [id number] [place] [address]- 5613 May, [facility] [place] [facility] [address] [id number] [place] [address]- 9844 May, [facility] [place] [facility] [address] [id number] [place] [address]- 8533 May, [facility] [place] [facility] [address] [id number] [place] [address]- 2377 May, [facility] [place] [facility] [address] [id number] [place] [address]- 5147 Apr, [facility] [place] [facility] [address] [id number] [place] [address]- 5752 Apr, [facility] [place] [facility] [address] [id number] [place] [address]- 7676 Feb, [facility] [place] [facility] [address] [facility] [place] [id number] [place] [address]- 0384 Feb, [facility] [place] [facility] [address] [id number] [place] [address]- 7482 Jan, [facility] [place] [facility] [address] [id number] [place] [address]- 6068 Jan, [facility] [place] [facility] [address] [id number] [place] [address]- 5648 Jan, [facility] [place] [facility] [address] [id number] [place] [address]- 9314 Jan, [facility] [place] [facility] [address] [id number] [place] [address]- 1166 Dec, [facility] [place] [facility] [address] [id number] [place] [address]- 3671 Dec, [facility] [place] [facility] [address] [id number] [place] [address]- 7065 Nov, [facility] [place] [facility] [address] [id number] [place] [address]- 7808 Nov, [facility] [place] [facility] [address] [id number] [place] [address]- 5022 Nov, [facility] [place] [facility] [address] [id number] [place] [address]- 6172 Nov, [facility] [place] [facility] [address] [id number] [place] [address]- 0455 October, [facility] [place] [facility] [address] [id number] [place] [address]- 7728 October, [facility] [place] [facility] [address] [id number] [place] [address]- 6823 Sep, [facility] [place] [facility] [address] [id number] [place] [address]- 9701 Sep, [facility] [place] [facility] [address] [id number] [place] [address]- 5255 Sep, [facility] [place] [facility] [address] [id number] [place] [address]- 2891 Sep, [facility] [place] [facility] [address] [id number] [place] [address]- 3944 Sep, [facility] [place] [facility] [address] [id number] [place] [address]- 9705 Sep, [facility] [place] [facility] [address] [id number] [place] [address]- 3886 Aug, [facility] [place] [facility] [address] [id number] [place] [address]- 6838 Aug, [facility] [place] [facility] [address] [id number] [place] [address]- 5757 Jul, [facility] [address] [id number] [place] [address]- 1998 Jul, [facility] [place] [facility] [address] [id number] [place] 2962 May, [facility] [place] [facility] [address] [id number] [place] [address]- 9297 May, [facility] [place] [facility] [address] [id number] [place] [address]- 5986 May, [facility] [place] [facility] [address] [id number] [place] [address]- 1848 May, [facility] [place] [facility] [address] [id number] [place] [address]- 9284 May, [facility] [address] [id number] [place] [address]- 1888 May, [facility] [place] [facility] [address] [id number] [place] [address]- 9677 Apr, [facility] [place] [facility] [address] [id number] [place] [address]- 3830 Apr, [facility] [place] [facility] [address] [id number] [place] [address]- 8287 Apr, [facility] [place] [facility] [address] [id number] [address]- 0184 Apr, [facility] [place] [facility] [address] [id number] [place] [address]- 0591 Apr, [facility] [place] [facility] [address] [id number] [place] 6490 Apr, [facility] [place] [facility] [address] [id number] [place] [address]- 5344 Feb, [facility] [place] [facility] [address] [id number] [place] [address]- 4026 Feb, [facility] [place] [facility] [address] [id number] [place] [address]- 2546 Feb, [facility] [address] [id number] [place] [address]- 6729 Feb, [facility] [address] [id number] [place] [address]- 2546 Jan, [facility] [address] [id number] [place] [address]- 3940 Dec, [facility] [address] [id number] [place] [address]- 8061 Dec, [facility] [address] [id number] [place] [address]- 9180 Dec, [facility] [address] [id number] [place] [address]- 2546 Dec, [facility] [address] [id number] [place] [address]- 0218 Nov, [facility] [address] [id number] [place] [address]- 2997 Nov, [facility] [address] [id number] [place] [address]- 0870 October, [facility] [address] [id number] [place] [address]- 7000 October, [facility] [address] [id number] [place] [address]- 2546 October, [facility] [address] [id number] [place] [address]- 2546 October, [facility] [address] [id number] [place] [address]- 2546 Sep, [facility] [address] [id number] [place] [address]- 2546 Aug, [facility] [address] [id number] [place] [address]- 7105 Aug, [facility] [address] [id number] [place] [address]- 9334 Aug, [facility] [place] [facility] [address] [id number] [place] [address]- 7598 Aug, [facility] [place] [facility] [address] [id number] [place] [address]- 0240 Jul, [facility] [place] [facility] [address] [id number] [place] [address]- 9850 Jul, [facility] [place] [facility] [address] [id number] [place] [address]- 8014 Jul, [facility] [place] [facility] [address] [id number] [place] [address]- 3285 Jun, [facility] [place] [facility] [address] [id number] [place] [address]- 3498 Jun, [facility] [place] [facility] [address] [id number] [place] [address]- 2999 May, [facility] [place] [facility] [address] [id number] [place] [address]- 3013 May, [facility] [place] [facility] [address] [id number] [place] [address]- 8377 Apr, [facility] [place] [facility] [address] [id number] [place] [address]- 2466 Apr, [facility] [place] [facility] [address] [id number] [place] [address]- 0002 Apr, [facility] [place] [facility] [address] [id number] [place] [address]- 0193 Apr, [facility] [place] [facility] [address] [id number] [place] [address]- 9150 Apr, [facility] [place] [facility] [address] [id number] [place] [address]- 2198 Apr, [facility] [place] [facility] [address] [id number] [place] [address]- 2303 Mar, [facility] [place] [facility] [address] [id number] [place] [address]- 7162 Mar, [facility] [place] [facility] [address] [id number] [place] 0424 Mar, [facility] [place] [facility] [address] [id number] [place] [address]- 8885 Mar, [facility] [place] [facility] [address] [id number] [place] [address]- 2698 Mar, [facility] [place] [facility] [address] [id number] [place] 3528 Mar, [facility] [place] [facility] [address] [id number] [place] [address]- 8025 Mar, [facility] [place] [facility] [address] [id number] [place] [address]- 5465 Feb, [facility] [place] [facility] [address] [id number] [place] [address]- 1458 Feb, [facility] [place] [facility] [address] [id number] [place] [address]- 0081 Jan, [facility] [place] [facility] [address] [id number] [place] [address]- 5612 Dec, [facility] [place] [facility] [address] [id number] [place] [address]- 0472 Dec, [facility] [place] [facility] [address] [id number] [place] [address]- 3022 Nov, [facility] [place] [facility] [address] [id number] [place] [address]- 9457 Nov, [facility] [place] [facility] [address] [id number] [place] [address]- 5216 Nov, [facility] [place] [facility] [address] [id number] [place] [address]- 2230 October, [facility] [place] [facility] [address] [id number] [place] [address]- 9124 Sep, [facility] [place] [facility] [address] [id number] [place] [address]- 0186 16 Sep, 2011 [facility] [place] [facility] [address] [id number] [place] [address]- 7497 04 Sep, 2011 [facility] [place] [facility] [address] [id number] [place] [address]- 2037 26 Aug, 2011 [facility] [place] [facility] [address] [id number] [place] [address]- 7060 21 Aug, 2011 [facility] [place] [facility] [address] [id number] [place] [address]- 1804 20 Aug, 2011 [facility] [place] [facility] [address] [id number] [place] [address]- 0263 15 Aug, 2011 [facility] [place] [facility] [address] [id number] [place] [address]- 7312 14 Aug, 2011 [facility] [place] [facility] [address] [id number] [place] [address]- 8331 12 Aug, 2011 [facility] [place] [facility] [address] [id number] [place] [address]- 8467 08 Aug, 2011 [facility] [place] [facility] [address] [id number] [place] [address]- 0020 05 Aug, 2011 [facility] [place] [facility] [address] [id number] [place] [address] 27 Jul, 2011 [facility] [place] [facility] [address] [id number] [place] [address] Jul, [facility] [place] [facility] [address] [id number] [place] [address] 20 Jul, 2011 [facility] [place] [facility] [address] [id number] [place] [address] 15 Jul, 2011 [facility] [place] [facility] [address] [id number] [place] [address] 06 Jul, 2011 [facility] [address] [id number] [place] [address] Jul, [facility] [address] [id number] [place] [address] Jun, [facility] [address] [id number] [place] [address] Jun, [facility] [place] [facility] [address] [id number] [place] [address] Jun, [facility] [address] [id number] [place] [address] Jun, [facility] [address] [id number] [place] [address] May, [facility] [address] [id number] [place] [address] May, [facility] [address] [id number] [place] [address] May, [facility] [address] [id number] [place] [address] May, [facility] [address] [facility] [place] [id number] [place] [address] May, [facility] [address] [id number] [place] [address] 30 Apr, 2011 [facility] [place] [facility] [address] [id number] [place] [address] 14 Apr, 2011 [facility] [place] [facility] [address] [id number] [place] [address] 31 Mar, 2011 [facility] [place] [facility] [address] [id number] [place] [address] 15 Feb, 2011 [facility] [place] [facility] [address] [facility] [place] [id number] [place] [address] 12 Feb, 2011 [facility] [place] [facility] [address] [facility] [place] [id number] [place] [address] May, [facility] [address] [facility] [place] [id number] [place] [address] Apr, [facility] [address] [facility] [place] [id number] [place] [address] Apr, [facility] [address] [facility] [place] [id number] [place] [address] Apr, [facility] [address] [facility] [place] [id number] [place] [address] Apr, [facility] [address] [facility] [place] [id number] [place] [address] Apr, [facility] [id number] [place] [address] Apr, [facility] [id number] [address] Mar, [facility] [id number] [address] Mar, [facility] [id number] [place] [address] Sep, IMMUNIZATIONS No Known Immunizations SOCIAL HISTORY Never Assessed REASON FOR VISIT routine visit, med list and code status reconciled --KALLI Guzman PLAN OF CARE Activity Details Follow Up prn Reason: VITAL SIGNS MEDICATIONS Medication Instructions Dosage Frequency Start Date End Date Duration Status Norvasc 5 MG Orally Once a day 1 tablet 24h Active Lactulose 20 GM/30ML Orally bid 1 packet 12h Active Abilify 10 MG Orally Once a day 1 tablet 24h Active Pantoprazole Sodium 40 mg Orally Once a day 1 tablet 24h 30 days Active Trihexyphenidyl HCl 2 MG Orally TID 0.5 tablet 8h Jul, Active Colace 100 MG Orally bid 1 capsule 12h Active Tylenol 325 MG Orally every 4 hrs 2 tablets as needed 4h Aug, Not-Taking Prozac 20mg orally daily 1 tab 24h Active Lisinopril 10 mg Orally Once a day 1 tablet 24h 30 days Active Simvastatin 10 MG Orally Once a day 1 tablet in the evening 24h Active Quetiapine Fumarate 100 mg Orally Once a day at hs after tapering up with the 50mg tab to 200mg 2 tablet Jan, Active Eliquis 5 MG TAKE ONE TABLET BY MOUTH TWICE A DAY Active RESULTS No Results PROCEDURES Procedure Date Ordered Result Body Site [facility] VISIT ESTABLISHED PATIENT Apr 08, 2018 DOMICIL/R-HOME VISIT EST PAT Apr 08, 2018 INSTRUCTIONS MEDICATIONS ADMINISTERED No Known Medications [...] attempts Hospitalization History Ischemic colitis, dementia, generalized debility-[facility] 07/30/17
--- OUTSIDE RECORDS SUMMARY | 2018-06-23 23:10 | XMS REPORT ---
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 Name Role Phone CARO CAMARA Unavailable PROBLEMS Type Condition ICD9-CM Code VXY93-FU Code Onset Dates Condition Status SNOMED Code Problem Mood disorder F39 Active 08656722 Problem Dementia F03.90 Active 20896158 Problem Hypertension, benign I10 Active 83313429 Problem Cognitive dysfunction F09 Active 712324261 Problem 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 059566173 Problem Anxiety disorder, unspecified F41.9 Active 484208175 Problem Major depression F32.9 Active [id number] ALLERGIES No Information ENCOUNTERS Encounter Location Date Diagnosis [facility] [address] [place] [address] Mar, [facility] [place] [id number] [place] [address] 68691- 1702 Mar, Mood disorder F39 [facility] [place] [id number] [place] [address] 71600- 9528 Mar, [facility] [place] [id number] [place] [address] 49340- 9182 Jan, Mood disorder F39 and Dementia associated with other underlying disease without behavioral disturbance F02.80 [facility] [id number] [place] [address] [id number] Jan, Dental examination Z01.20 [facility] [address] [place] [address] Jan, Dementia F03.90 ; Mood disorder F39 ; Cognitive dysfunction F09 ; Hypertension, benign I10 ; Hypokalemia E87.6 and History of DVT of lower extremity Z86.718 [facility] [place] [id number] [address] Jan, Anxiety disorder, unspecified F41.9 and Mood disorder F39 [facility] [id number] [place] [address] 13985- 3835 Jan, Mood disorder F39 and Dementia associated with other underlying disease without behavioral disturbance F02.80 [facility] [id number] [place] [address] 66776- 0733 Dec, Mood disorder F39 [facility] [id number] [place] [address] 18325- 2264 Dec, Mood disorder F39 [facility] [id number] [place] [address] 26164- 0812 Nov, [facility] [id number] [place] [address] 56560- 5990 Nov, Dementia without behavioral disturbance, unspecified dementia type F03.90 ; Cognitive dysfunction F09 and Major depression F32.9 [facility] [address] [place] [address] October, Encounter for examination for admission to usp Z02.2 ; Tardive dyskinesia G24.01 ; Major depression F32.9 ; Anxiety disorder, unspecified F41.9 ; Cognitive dysfunction F09 and Dementia without behavioral disturbance, unspecified dementia type F03.90 [facility] [address] [address] October, [facility] [id number] [place] [address] 13328- 3950 October, [facility] [id number] [place] [address] 80675- 8533 Sep, Acute deep vein thrombosis (DVT) of proximal vein of left lower extremity I82.4Y2 [facility] [id number] [place] [address] 27522- 2344 Sep, Mood disorder F39 and Dementia associated with other underlying disease without behavioral disturbance F02.80 [facility] [address] [id number] [address] Sep, Mood disorder F39 and Acute deep vein thrombosis (DVT) of proximal vein of left lower extremity I82.4Y2 [facility] [place] [address] [id number] [address] 16 Sep, 2017 [facility] [address] [place] [id number] Sep, History of DVT (deep vein thrombosis) Z86.718 and Dementia F03.90 [facility] [place] [address] [id number] [address] Sep, Mood disorder F39 and Dementia without behavioral disturbance, unspecified dementia type F03.90 [facility] [place] [address] [id number] [address] Aug, [facility] [place] [address] [address] Aug, [facility] [address] [id number] [id number] Aug, [facility] [place] [address] [facility] [id number] [address] 0[address] Aug, [facility] [place] [address] [facility] [id number] [address] 8044 Aug, Acute deep vein thrombosis (DVT) of proximal vein of left lower extremity I82.4Y2 [facility] [address] [place] [id number] Aug, Left leg swelling M79.89 [facility] [place] [address] [id number] [place] [address] 78[address] Aug, Mood disorder F39 and Dementia without behavioral disturbance, unspecified dementia type F03.90 [facility] [place] [address] [id number] [address] 1010 Jul, [facility] [place] [address] [id number] [address] 8097 Jul, Dementia without behavioral disturbance, unspecified dementia type F03.90 and Mood disorder F39 [facility] [address] [place] [id number] Jul, Encounter for examination for admission to usp Z02.2 ; Rectal bleed K62.5 ; Dementia without behavioral disturbance, unspecified dementia type F03.90 ; Hypertension, benign I10 ; Edema R60.9 and Major depression F32.9 [facility] [id number] [place] [address] [id number] Jul, [facility] [place] [id number] [place] [address] 89093- 4788 Apr, Dementia without behavioral disturbance, unspecified dementia type F03.90 and Mood disorder F39 [facility] [id number] [place] [address] 22267- 0382 Apr, [facility] [id number] [place] [address] 20184- 2392 Feb, Hypertension, benign I10 [facility] [place] [id number] [place] [address] 41245- 2734 Dec, Major depression F32.9 ; Anxiety disorder, unspecified F41.9 ; Cognitive dysfunction F09 and Dementia without behavioral disturbance, unspecified dementia type F03.90 [facility] [place] [id number] [place] [address] 52918- 4859 October, Hypertension, benign I10 [facility] [place] [id number] [place] [address] 68142- 9562 Sep, Major depression F32.9 ; Anxiety disorder, unspecified F41.9 and Cognitive dysfunction F09 [facility] [place] [id number] [place] [address] 21488- 3657 Apr, Major depression F32.9 and Cognitive dysfunction F09 [facility] [place] [id number] [place] [address] 25514- 4581 Jan, Anxiety disorder, unspecified F41.9 ; Major depression F32.9 and Cognitive dysfunction F09 [facility] [place] [address] [address] 2664 Jan, [facility] [place] [id number] [place] [address] 64835- 5260 Dec, [facility] [place] [id number] [place] [address] 84360- 8082 Dec, [facility] [place] [id number] [place] [address] 63845- 1773 Nov, Anxiety disorder, unspecified F41.9 ; Major depression F32.9 and Cognitive dysfunction F09 [facility] [id number] [place] [address] 012675- 3522 October, Dementia without behavioral disturbance, unspecified dementia type F03.90 [facility] [id number] [place] [address] 73712- 4566 Sep, Cognitive dysfunction F09 and Edema R60.9 [facility] [id number] [place] [address] 74234- 7855 Sep, Cognitive dysfunction F09 and Edema R60.9 [facility] [id number] [place] [address] 10112- 1793 Aug, Self-care deficit for medication administration R41.89 ; Self-care deficit in patient living alone R46.89 and Cognitive dysfunction F09 [facility] [id number] [place] [address] 45187- 9460 Aug, 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 and Unspecified intracranial injury without loss of consciousness, sequela S06.9X0S [facility] [id number] [place] [address] 90347- 1613 Jul, [facility] [place] [id number] [place] [address] 23727- 8377 Jun, Anxiety disorder, unspecified F41.9 and Major depression F32.9 [facility] [id number] [address]- 3101 Jun, [facility] [place] [id number] [place] [address] 30782- 7536 May, [facility] [place] [id number] [place] [address] 30939- 5957 May, Nausea R11.0 [facility] [place] [id number] [place] [address] 56054- 5029 Apr, [facility] [place] [id number] [place] [address] 24028- 1325 Mar, Major depression F32.9 [facility] [place] [id number] [place] [address] 63747- 4201 Mar, Encounter for immunization Z23 [facility] [place] [id number] [place] [address] 89750- 0323 Mar, Major depression F32.9 and Anxiety disorder, unspecified F41.9 [facility] [place] [id number] [place] [address] 69402- 3413 Dec, Major depression, chronic 296.20 and Anxiety disorder, unspecified 300.00 [facility] [place] [id number] [place] [address] 63436- 0772 October, Hypertension 401.9 [facility] [place] [id number] [place] [address] 64871- 8344 14 Sep, 2014 [facility] [place] [id number] [place] [address] 04037- 2336 Sep, [facility] [place] [id number] [place] [address] 32222- 6377 Jul, [facility] [place] [id number] [place] [address] 427113- 9330 Jul, [facility] [place] [address] [address]- 5614 Jul, [facility] [place] [address] [address]- 6723 May, [facility] [place] [facility] [address] [id number] [place] [address]- 9755 May, [facility] [place] [facility] [address] [id number] [place] [address]- 6385 May, [facility] [place] [facility] [address] [id number] [place] [address]- 7133 May, [facility] [place] [facility] [address] [id number] [place] [address]- 3535 Apr, [facility] [place] [facility] [address] [id number] [place] [address]- 9298 Apr, [facility] [place] [facility] [address] [id number] [place] [address]- 6292 Feb, [facility] [place] [facility] [address] [id number] [place] [address]- 2232 Feb, [facility] [place] [facility] [address] [id number] [place] [address]- 6501 Jan, [facility] [place] [facility] [address] [id number] [place] [address]- 1597 Jan, [facility] [place] [facility] [address] [id number] [place] [address]- 4538 Jan, [facility] [place] [facility] [address] [id number] [place] [address]- 6195 Jan, [facility] [place] [facility] [address] [id number] [place] [address]- 9941 Dec, [facility] [place] [facility] [address] [id number] [place] [address]- 1567 Dec, [facility] [place] [facility] [address] [id number] [place] [address]- 5861 Nov, [facility] [place] [facility] [address] [id number] [place] 9085 Nov, [facility] [place] [facility] [address] [id number] [place] [address]- 5799 Nov, [facility] [place] [facility] [address] [id number] [place] [address]- 8861 Nov, [facility] [place] [facility] [address] [id number] [place] [address]- 3396 October, [facility] [place] [facility] [address] [id number] [place] [address]- 3707 October, [facility] [place] [facility] [address] [id number] [place] [address]- 0686 Sep, [facility] [place] [facility] [address] [id number] [place] [address]- 1107 Sep, [facility] [place] [facility] [address] [id number] [place] [address]- 7213 Sep, [facility] [place] [facility] [address] [id number] [place] [address]- 4406 Sep, [facility] [place] [facility] [address] [id number] [place] [address]- 8019 Sep, [facility] [place] [facility] [address] [id number] [place] [address]- 4602 Sep, [facility] [place] [facility] [address] [id number] [place] [address]- 2996 Aug, [facility] [place] [facility] [address] [id number] [place] [address]- 4541 Aug, [facility] [place] [facility] [address] [id number] [place] [address]- 6971 Jul, [facility] [place] [facility] [address] [id number] [place] [address]- 9800 Jul, [facility] [place] [facility] [address] [id number] [place] [address]- 1254 May, [facility] [place] [facility] [address] [id number] [place] [address]- 0186 May, [facility] [address] [id number] [place] [address]- 5104 May, [facility] [place] [facility] [address] [id number] [place] [address]- 0073 May, [facility] [address] [id number] [place] [address]- 6059 May, [facility] [place] [facility] [address] [id number] [place] [address]- 1941 May, [facility] [address] [id number] [place] [address]- 3646 Apr, [facility] [place] [facility] [address] [id number] [place] [address]- 5977 Apr, [facility] [address] [id number] [place] [address]- 8207 Apr, [facility] [place] [facility] [address] [id number] [place] [address]- 7776 Apr, [facility] [place] [facility] [address] [id number] [place] [address]- 7823 Apr, [facility] [place] [facility] [address] [facility] [id number] [place] [address]- 2488 Apr, [facility] [place] [facility] [address] [id number] [place] [address]- 2975 Feb, [facility] [place] [facility] [address] [id number] [place] [address]- 9883 23 Feb, 2013 [facility] [place] [facility] [address] [id number] [place] [address]- 3272 18 Feb, 2013 [facility] [place] [facility] [address] [id number] [place] [address]- 0192 Feb, [facility] [place] [facility] [address] [id number] [place] [address]- 6449 Jan, [facility] [place] [facility] [address] [id number] [place] [address]- 0618 Dec, [facility] [address] [id number] [place] [address]- 9589 Dec, [facility] [address] [id number] [place] [address]- 2980 Dec, [facility] [address] [id number] [place] [address]- 7927 Dec, [facility] [address] [id number] [place] [address]- 0786 Nov, [facility] [address] [id number] [place] [address]- 8403 Nov, [facility] [address] [id number] [place] [address]- 5225 October, [facility] [address] [id number] [place] [address]- 9714 October, [facility] [address] [id number] [place] [address]- 5209 October, [facility] [address] [id number] [place] [address]- 2335 October, [facility] [address] [id number] [place] [address]- 3202 Sep, [facility] [address] [id number] [place] [address]- 7426 Aug, [facility] [place] [facility] [address] [id number] [place] [address]- 8412 18 Aug, 2012 [facility] [place] [facility] [address] [id number] [place] [address]- 3570 15 Aug, 2012 [facility] [place] [facility] [address] [id number] [place] [address]- 6960 06 Aug, 2012 [facility] [place] [facility] [address] [id number] [place] [address]- 6705 Jul, [facility] [place] [facility] [address] [id number] [place] [address]- 0176 Jul, [facility] [place] [facility] [address] [id number] [place] 2701 Jul, [facility] [place] [facility] [address] [id number] [place] [address]- 5341 Jun, [facility] [place] [facility] [address] [id number] [place] [address]- 0061 Jun, [facility] [place] [facility] [address] [id number] [place] [address]- 2764 May, [facility] [place] [facility] [address] [id number] [place] [address]- 8645 May, [facility] [place] [facility] [address] [id number] [place] [address]- 6415 Apr, [facility] [place] [facility] [address] [id number] [place] [address]- 0315 Apr, [facility] [place] [facility] [address] [id number] [place] [address]- 8180 Apr, [facility] [place] [facility] [address] [id number] [place] [address]- 2020 Apr, [facility] [place] [facility] [address] [id number] [address]- 9031 Apr, [facility] [place] [facility] [address] [id number] [place] [address]- 6148 Apr, [facility] [place] [facility] [address] [id number] [address]- 5235 Mar, [facility] [place] [facility] [address] [id number] [place] [address]- 2479 Mar, [facility] [place] [facility] [address] [id number] [place] [address]- 6694 Mar, [facility] [place] [facility] [address] [id number] [place] [address]- 4805 Mar, [facility] [place] [facility] [address] [id number] [place] [address]- 4729 Mar, [facility] [place] [facility] [address] [id number] [place] [address]- 4199 Mar, [facility] [place] [facility] [address] [id number] [place] [address]- 2888 Mar, [facility] [place] [facility] [address] [id number] [place] [address]- 5155 Feb, [facility] [place] [facility] [address] [id number] [place] [address]- 0058 Feb, [facility] [place] [facility] [address] [id number] [place] [address]- 8813 Jan, [facility] [place] [facility] [address] [id number] [place] [address]- 8205 Dec, [facility] [address] [id number] [place] [address]- 8028 Dec, [facility] [place] [facility] [address] [id number] [place] [address]- 7948 Nov, [facility] [place] [facility] [address] [id number] [place] [address] Nov, [facility] [place] [facility] [address] [id number] [place] [address] Nov, [facility] [place] [facility] [address] [id number] [place] [address] October, [facility] [place] [facility] [address] [id number] [place] [address] Sep, [facility] [place] [facility] [address] [id number] [place] [address] 16 Sep, 2011 [facility] [place] [facility] [address] [id number] [place] [address] Sep, [facility] [place] [facility] [address] [id number] [place] [address] 26 Aug, 2011 [facility] [place] [facility] [address] [id number] [place] [address] 21 Aug, 2011 [facility] [place] [facility] [address] [id number] [place] [address] 20 Aug, 2011 [facility] [place] [facility] [address] [id number] [place] [address] 15 Aug, 2011 [facility] [place] [facility] [address] [id number] [place] [address] 14 Aug, 2011 [facility] [place] [facility] [address] [id number] [place] [address] 12 Aug, 2011 [facility] [place] [facility] [address] [facility] [id number] [place] [address] Aug, [facility] [place] [facility] [address] [id number] [place] [address] 05 Aug, 2011 [facility] [place] [facility] [address] [id number] [place] [address] Jul, [facility] [place] [facility] [address] [id number] [place] [address] Jul, [facility] [place] [facility] [address] [id number] [place] [address] Jul, [facility] [place] [facility] [address] [id number] [place] [address] 15 Jul, 2011 [facility] [place] [facility] [address] [id number] [place] [address] 06 Jul, 2011 [facility] [place] [facility] [address] [id number] [place] [address] 03 Jul, 2011 [facility] [place] [facility] [address] [id number] [place] [address] Jun, [facility] [place] [facility] [address] [id number] [place] [address] 10 Jun, 2011 [facility] [address] [id number] [place] [address] 10 Jun, 2011 [facility] [address] [id number] [place] [address] 02 Jun, 2011 [facility] [address] [id number] [place] [address] 29 May, 2011 [facility] [address] [id number] [place] [address] 28 May, 2011 [facility] [address] [id number] [place] [address], [place] [address] May, [facility] [address] [id number] [place] [address] May, [facility] [address] [id number] [place] [address] May, [facility] [address] [id number] [place] [address] 30 Apr, 2011 [facility] [address] [id number] [place] [address] 14 Apr, 2011 [facility] [address] [id number] [place] [address] 31 Mar, 2011 [facility] [address] [id number] [place] [address] 15 Feb, 2011 [facility] [address] [id number] [place] [address] 12 Feb, 2011 [facility] [address] [id number] [place] [address] 21 May, 2010 [facility] [address] [id number] [place] [address] 23 Apr, 2010 [facility] [address] [id number] [place] [address] Apr, [facility] [place] [address] [id number] [address] Apr, [facility] [place] [address] [id number] [address] Apr, [facility] [place] [address] [id number] [address] Apr, [facility] [place] [address] [id number] [address], [facility], [place] [id number] [address] Mar, [facility], [place] [id number] [address] Mar, [facility], [place] [id number] [address] Sep, IMMUNIZATIONS No Known Immunizations SOCIAL HISTORY Never Assessed REASON FOR VISIT Requests Return call PLAN OF CARE VITAL SIGNS MEDICATIONS Unknown Medications RESULTS No Results PROCEDURES No Known procedures [...] attempts Hospitalization History Ischemic colitis, dementia, generalized debility-[facility] 07/30/17
--- OUTSIDE RECORDS SUMMARY | 2018-06-23 23:10 | XMS REPORT ---
Author Author CARO CAMARA [facility] Address [address] [place] [address] Care Team Providers Care Surveyor Geod[employer] Name Role Phone CARO CAMARA Unavailable PROBLEMS Type Condition ICD9-CM Code OHE69-FK Code Onset Dates Condition Status SNOMED Code Problem Mood disorder F39 Active 29726642 Problem Dementia F03.90 Active 96934132 Problem Hypertension, benign I10 Active 12419298 Problem Cognitive dysfunction F09 Active 800361893 Problem 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 517846944 Problem Anxiety disorder, unspecified F41.9 Active 511214754 Problem Major depression F32.9 Active 927798201 ALLERGIES No Information ENCOUNTERS Encounter Location Date Diagnosis [place] [id number] [place] [address] 93772- 2722 Mar, Mood disorder F39 [place] [address] [address] Mar, [facility] [id number] [place] [address] 56141- 3958 Jan, Mood disorder F39 and Dementia associated with other underlying disease without behavioral disturbance F02.80 [facility] [id number] [place] [address] [id number] Jan, Dental examination Z01.20 [facility] [address] [place] [address] Jan, Dementia F03.90 ; Mood disorder F39 ; Cognitive dysfunction F09 ; Hypertension, benign I10 ; Hypokalemia E87.6 and History of DVT of lower extremity Z86.718 [facility] [id number] [place] [address] 89679- 8647 07 Jan, 2018 Anxiety disorder, unspecified F41.[address] [facility] [address] [address] Jan, Mood disorder F39 and Dementia associated with other underlying disease without behavioral disturbance F02.80 [facility] [address] [address] 99[address] Dec, Mood disorder F39 [facility] [id number] [place] [address] 97314- 3578 Dec, Mood disorder F39 [place] [id number] [place] [address] 43217- 5913 Nov, [place] [id number] [place] [address] 04097- 0941 Nov, Dementia without behavioral disturbance, unspecified dementia type F03.90 ; Cognitive dysfunction F09 and Major depression F32.9 [facility] [address] [place] [address] October, Encounter for examination for admission to penitentiary Z02.2 ; Tardive dyskinesia G24.01 ; Major depression F32.9 ; Anxiety disorder, unspecified F41.9 ; Cognitive dysfunction F09 and Dementia without behavioral disturbance, unspecified dementia type F03.90 [place] [address] [address] 66[address] October, [place] [id number] [place] [address] 06719- 0087 October, [place] [id number] [place] [address] 90614- 7997 Sep, Acute deep vein thrombosis (DVT) of proximal vein of left lower extremity I82.4Y2 [place] [id number] [place] [address] 85209- 2802 Sep, Mood disorder F39 and Dementia associated with other underlying disease without behavioral disturbance F02.80 [place] [id number] [place] [address] 44464- 4231 Sep, Mood disorder F39 and Acute deep vein thrombosis (DVT) of proximal vein of left lower extremity I82.4Y2 [facility] [id number] [place] [address] 97385- 2769 Sep, [facility] [address] [place] [id number] Sep, History of DVT (deep vein thrombosis) Z86.[address] [facility] [id number] [place] [address] 77218- 0408 Sep, Mood disorder F39 and Dementia without behavioral disturbance, unspecified dementia type F03.90 [facility] [address] [id number] [place] [address] 28112- 0911 Aug, [facility] [id number] [place] [address] 86151- 0613 Aug, [facility] [id number] [place] [address] [id number] Aug, [facility] [id number] [place] [address] 65753- 7842 Aug, [facility] [id number] [place] [address] 25368- 1143 Aug, Acute deep vein thrombosis (DVT) of proximal vein of left lower extremity I82.4Y2 [facility] [address] [place] [id number] Aug, Left leg swelling M79.89 [facility] [address] [facility] [id number] [place] [address] 00707- 6326 Aug, Mood disorder F39 and Dementia without behavioral disturbance, unspecified dementia type F03.90 [facility] [address] [id number] [place] [address] [id number]- 4188 Jul, [facility] [address] [facility] [id number] [place] [address] 45667- 6698 Jul, Dementia without behavioral disturbance, unspecified dementia type F03.90 and Mood disorder F39 [facility] [address] [place] [id number] Jul, Encounter for examination for admission to penitentiary Z02.2 ; Rectal bleed K62.5 ; Dementia without behavioral disturbance, unspecified dementia type F03.90 ; Hypertension, benign I10 ; Edema R60.9 and Major depression F32.9 [facility] [id number] [place] [address] [id number] Jul, [place] [address] 50409- 6004 Apr, Dementia without behavioral disturbance, unspecified dementia type F03.90 and Mood disorder F39 [place] [address] 93653- 0312 Apr, [place] [id number] [place] [address] 79758- 3243 Feb, Hypertension, benign I10 [place] [address] 04754- 6762 Dec, Major depression F32.9 ; Anxiety disorder, unspecified F41.9 ; Cognitive dysfunction F09 and Dementia without behavioral disturbance, unspecified dementia type F03.90 [place] [id number] [place] [address] 41881- 3138 October, Hypertension, benign I10 [place] [id number] [place] [address] 00466- 6971 Sep, Major depression F32.9 ; Anxiety disorder, unspecified F41.9 and Cognitive dysfunction F09 [place] [id number] [place] [address] 86180- 5861 Apr, Major depression F32.9 and Cognitive dysfunction F09 [place] [id number] [place] [address] 13268- 5769 Jan, Anxiety disorder, unspecified F41.9 ; Major depression F32.9 and Cognitive dysfunction F09 [place] [id number] [place] [address] 88645- 2044 Jan, [facility] [address] [address] 2[address] Dec, [facility] [id number] [place] [address] 41669- 5292 Dec, [place] [id number] [place] [address] 20521- 9587 Nov, Anxiety disorder, unspecified F41.9 ; Major depression F32.9 and Cognitive dysfunction F09 [place] [id number] [place] [address] 05203- 6582 October, Dementia without behavioral disturbance, unspecified dementia type F03.90 [place] [id number] [place] [address] 73006- 1926 Sep, Cognitive dysfunction F09 and Edema R60.9 [place] [id number] [place] [address] 51362- 6290 Sep, Cognitive dysfunction F09 and Edema R60.9 [place] [id number] [place] [address] 97412- 2377 Aug, Self-care deficit for medication administration R41.89 ; Self-care deficit in patient living alone R46.89 and Cognitive dysfunction F09 [place] [address], [place] [address]- 6311 Aug, 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 [id number] [place] [address] 12755- 5245 May, Nausea R11.0 [facility] [id number] [place] [address] 11004- 0121 Apr, [facility] [address] 73409- 0144 Mar, Major depression F32.9 [facility] [id number] [place] [address] 36166- 6670 Mar, Encounter for immunization Z23 [facility] [id number] [place] [address] 63896- 7033 Mar, Major depression F32.9 and Anxiety disorder, unspecified F41.9 [facility] [id number] [place] [address] 76924- 6728 Dec, Major depression, chronic 296.20 and Anxiety disorder, unspecified 300.00 [facility] [id number] [place] [address] 69087- 5188 October, Hypertension 401.9 [facility] [id number] [place] [address] 94507- 8952 Sep, [facility] [id number] [place] [address] 81294- 0737 Sep, [facility] [id number] [place] [address] 00887- 4831 18 Jul, 2014 [facility] [id number] [place] [address] 36517- 3674 Jul, [facility] [id number] [place] [address] 76942- 8056 Jul, [facility] [id number] [place] [address] 36498- 9723 May, [facility] [place] [facility] [address] [id number] [place] [address]- 8425 May, [facility] [place] [facility] [address] [id number] [place] [address]- 4856 May, [facility] [place] [facility] [address] [id number] [place] [address]- 1256 May, [facility] [place] [facility] [address] [id number] [place] [address]- 6465 Apr, [facility] [place] [facility] [address] [id number] [place] [address]- 1084 Apr, [facility] [place] [facility] [address] [id number] [place] [address]- 0620 Feb, [facility] [place] [facility] [address] [id number] [place] [address]- 8991 Feb, [facility] [place] [facility] [address] [id number] [place] [address]- 8809 Jan, [facility] [place] [facility] [address] [id number] [place] [address]- 8720 Jan, [facility] [place] [facility] [address] [id number] [place] [address]- 7757 Jan, [facility] [place] [facility] [address] [id number] [place] [address]- 1200 Jan, [facility] [place] [facility] [address] [id number] [place] [address]- 7467 Dec, [facility] [place] [facility] [address] [id number] [place] [address]- 8070 Dec, [facility] [place] [facility] [address] [id number] [place] [address]- 6925 Nov, [facility] [place] [facility] [address] [id number] [place] [address]- 3444 Nov, [facility] [place] [facility] [address] [id number] [place] [address]- 5659 Nov, [facility] [place] [facility] [address] [id number] [place] [address]- 9763 Nov, [facility] [place] [facility] [address] [id number] [place] [address]- 2484 October, [facility] [place] [facility] [address] [id number] [place] [address]- 0893 October, [facility] [place] [facility] [address] [id number] [place] [address]- 0549 Sep, [facility] [place] [facility] [address] [id number] [place] [address]- 2755 Sep, [facility] [place] [facility] [address] [id number] [place] [address]- 4283 Sep, [facility] [place] [facility] [address] [id number] [place] [address]- 2711 Sep, [facility] [place] [facility] [address] [id number] [place] [address]- 9741 Sep, [facility] [place] [facility] [address] [id number] [place] [address]- 9506 Sep, [facility] [place] [facility] [address] [id number] [place] [address]- 8607 Aug, [facility] [place] [facility] [address] [id number] [place] [address]- 2187 Aug, [facility] [place] [facility] [address] [id number] [address]- 4197 Jul, [facility] [place] [facility] [address] [id number] [place] [address]- 7901 Jul, [facility] [place] [facility] [address] [id number] [place] [address]- 0595 May, [facility] [place] [facility] [address] [id number] [place] [address]- 8490 May, [facility] [place] [facility] [address] [id number] [place] [address]- 9413 May, [facility] [address] [id number] [place] [address]- 1188 May, [facility] [address] [id number] [place] 8696 May, [facility] [address] [id number] [place] [address]- 1649 May, [facility] [address] [id number] [place] [address]- 6345 Apr, [facility] [address] [id number] [place] [address]- 9545 Apr, [facility] [address] [id number] [place] [address]- 9048 Apr, [facility] [address] [id number] [place] [address]- 8079 Apr, [facility] [address] [id number] [place] [address]- 3879 Apr, [facility] [address] [id number] [place] [address]- 4108 Apr, [facility] [address] [id number] [place] [address]- 7976 Feb, [facility] [address] [id number] [place] [address] 2541 Feb, [facility] [address] [id number] [place] [address]- 2544 18 Feb, 2013 [facility] [place] [facility] [address] [id number] [place] [address]- 2971 Feb, [facility] [place] [facility] [address] [id number] [place] [address]- 6719 Jan, [facility] [address] [id number] [place] [address]- 0937 Dec, [facility] [address] [id number] [place] [address]- 1404 Dec, [facility] [place] [facility] [address] [id number] [place] [address]- 3106 Dec, [facility] [place] [facility] [address] [id number] [place] [address]- 8186 Dec, [facility] [place] [facility] [address] [id number] [place] [address]- 5530 Nov, [facility] [address] [id number] [place] [address]- 5916 Nov, [facility] [place] [facility] [address] [id number] [place] [address]- 1386 October, [facility] [address] [id number] [place] [address]- 9439 October, [facility] [address] [id number] [place] [address]- 6952 October, [facility] [place] [facility] [address] [id number] [place] [address]- 6391 October, [facility] [address] [id number] [place] [address]- 9327 Sep, [facility] [place] [facility] [address] [id number] [place] [address]- 1106 Aug, [facility] [place] [facility] [address] [id number], [place] [address]- 0906 Aug, [facility] [place] [facility] [address] [id number] [place] [address]- 7384 Aug, [facility] [place] [facility] [address] [id number] [place] [address]- 8916 Aug, [facility] [place] [facility] [address] [id number] [place] [address]- 7376 Jul, [facility] [place] [facility] [address] [id number], [place] [address]- 2755 Jul, [facility] [place] [facility] [address] [id number] [place] [address]- 2356 Jul, [facility] [place] [facility] [address] [facility] [id number] [place] 7434 Jun, [facility] [place] [facility] [address] [facility] [id number] [place] [address]- 3343 Jun, [facility] [place] [facility] [address] [id number] [place] [address]- 3093 May, [facility] [place] [facility] [address] [facility] [id number] [place] [address]- 9998 May, [facility] [place] [facility] [address] [facility] [id number] [place] [address]- 3685 Apr, [facility] [place] [facility] [address] [facility] [id number] [place] [address]- 9087 Apr, [facility] [place] [facility] [address] [facility] [id number] [place] [address]- 4541 Apr, [facility] [place] [facility] [address] [facility] [id number] [place] [address]- 6831 Apr, [facility] [place] [facility] [id number] [place] [address]- 3885 Apr, [facility] [place] [facility] [address] [facility] [id number] [place] [address]- 7306 Apr, [facility] [place] [facility] [address] [facility] [id number], [place] [address]- 9324 Mar, [facility] [place] [facility] [address] [id number] [place] [address]- 1991 Mar, [facility] [place] [facility] [address] [facility] [id number] [place] [address]- 7954 Mar, [facility] [place] [facility] [address] [facility] [id number], [place] [address]- 9228 Mar, [facility] [place] [facility] [address] [id number] [place] [address]- 4740 Mar, [facility] [place] [facility] [address] [id number] [place] [address]- 4794 Mar, [facility] [place] [facility] [address] [id number] [place] [address]- 7996 Mar, [facility] [place] [facility] [address] [id number] [place] [address]- 2329 Feb, [facility] [place] [facility] [address] [id number] [place] [address]- 1045 Feb, [facility] [place] [facility] [address] [id number] [place] [address]- 5892 Jan, [facility] [place] [facility] [address] [id number] [place] [address]- 0116 Dec, [facility] [place] [facility] [address] [id number] [place] [address]- 2659 Dec, [facility] [place] [facility] [address] [id number] [place] [address]- 3461 Nov, [facility] [place] [facility] [address] [id number] [place] [address]- 3977 Nov, [facility] [place] [facility] [address] [id number] [place] [address]- 5674 Nov, [facility] [place] [facility] [address] [id number] [place] [address]- 1829 October, [facility] [place] [facility] [address] [id number] [place] [address]- 5680 Sep, [facility] [place] [facility] [address] [id number] [place] [address]- 1760 Sep, [facility] [place] [facility] [address] [id number] [place] [address]- 9585 Sep, [facility] [place] [facility] [address] [id number] [place] [address]- 1926 26 Aug, 2011 [facility] [place] [facility] [address] [id number] [place] [address]- 7937 21 Aug, 2011 [facility] [place] [facility] [address] [id number] [place] [address]- 2696 20 Aug, 2011 [facility] [place] [facility] [address] [facility] [id number] [place] [address] 15 Aug, 2011 [facility] [place] [facility] [address] [id number] [place] [address] 14 Aug, 2011 [facility] [place] [facility] [address] [id number] [place] [address] 12 Aug, 2011 [facility] [place] [facility] [address] [facility] [id number] [place] [address] 08 Aug, 2011 [facility] [place] [facility] [address] [facility] [id number] [place] [address] 05 Aug, 2011 [facility] [place] [facility] [address] [id number] [place] [address] 27 Jul, 2011 [facility] [place] [facility] [address] [id number] [place] [address] Jul, [facility] [place] [facility] [address] [facility] [id number] [place] [address] Jul, [facility] [place] [facility] [address] [facility] [id number] [place] [address] 15 Jul, 2011 [facility] [place] [facility] [address] [facility] [id number] [place] [address] 06 Jul, 2011 [facility] [place] [facility] [address] [id number] [place] [address] 03 Jul, 2011 [facility] [place] [facility] [address] [facility] [id number] [place] [address] 27 Jun, 2011 [facility] [place] [facility] [address] [facility] [id number] [place] [address] 10 Jun, 2011 [facility] [place] [facility] [address] [id number] [place] [address] 10 Jun, 2011 [facility] [place] [facility] [address] [id number] [place] [address] 02 Jun, 2011 [facility] [place] [facility] [address] [id number] [place] [address] 29 May, 2011 [facility] [place] [facility] [address] [id number] [place] [address] 28 May, 2011 [facility] [place] [facility] [address] [id number] [place] [address] May, [facility] [place] [facility] [address] [id number] [place] [address] May, [facility] [place] [facility] [address] [id number] [place] [address] May, [facility] [place] [facility] [address] [id number] [place] [address] 30 Apr, 2011 [facility] [place] [facility] [address] [id number] [place] [address] 14 Apr, 2011 [facility] [place] [facility] [address] [id number] [place] [address] 31 Mar, 2011 [facility] [place] [facility] [address] [id number] [place] [address] 15 Feb, 2011 [facility] [place] [facility] [address] [id number] [place] [address] 12 Feb, 2011 [facility] [place] [facility] [address] [id number] [place] [address] May, [facility] [place] [facility] [address] [id number] [place] [address] 23 Apr, 2010 [facility] [place] [facility] [address] [id number] [place] [address] 15 Apr, 2010 [facility] [place] [facility] [address] [id number] [place] [address] Apr, [facility] [address] [facility] [id number] [address] Apr, [facility] [address] [id number] [address] Apr, [facility] [address] [id number] [address] Apr, [facility] [id number] [address] Mar, [facility] [address] [id number], [place] [address] Mar, [facility] [address] [id number], [place] [address] Sep, IMMUNIZATIONS No Known Immunizations SOCIAL HISTORY Never Assessed REASON FOR VISIT Refill request PLAN OF CARE VITAL SIGNS MEDICATIONS Medication Instructions Dosage Frequency Start Date End Date Duration Status Trihexyphenidyl HCl 2 MG Orally TID 0.5 tablet 8h Jul, Active RESULTS No Results PROCEDURES No Known [...] attempts Hospitalization History Ischemic colitis, dementia, generalized debility-[facility] 07/30/17
--- OUTSIDE RECORDS SUMMARY | 2018-06-23 23:11 | XMS REPORT ---
Author Author GRACE WHIT Organization [facility] Address [address] [place] [address] Care Team Providers Care Vacuum Spindle Sander Name Role Phone SAADBRYCE WHIT Unavailable PROBLEMS Type Condition ICD9-CM Code GRY19-SV Code Onset Dates Condition Status SNOMED Code Problem Mood disorder F39 Active 58617839 Problem Dementia F03.90 Active 92497506 Problem Hypertension, benign I10 Active 57304592 Problem Cognitive dysfunction F09 Active 183877550 Problem 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 378750346 Problem Anxiety disorder, unspecified F41.9 Active 435646304 Problem Major depression F32.9 Active 877074379 ALLERGIES Substance Reaction Event Type Date Status Stadol hives Drug Allergy Jan, Active Morphine Sulfate hives Drug Allergy Jan, Active Iodinated Contrast Media - Iv Dye Unknown Non Drug Allergy Jan, Active ENCOUNTERS Encounter Location Date Diagnosis [facility] [id number] [place] [address] 87073- 9099 Mar, [facility] [id number] [place] [address] 76568- 9774 Jan, Mood disorder F39 and Dementia associated with other underlying disease without behavioral disturbance F02.80 [facility] [place] [facility] [id number] [place] [address] [id number] Jan, Dental examination Z01.20 [facility] [address] [place] [address] Jan, Dementia F03.90 ; Mood disorder F39 ; Cognitive dysfunction F09 ; Hypertension, benign I10 ; Hypokalemia E87.6 and History of DVT of lower extremity Z86.718 [facility] [id number] [place] [address] 80156- 8569 Jan, Anxiety disorder, unspecified F41.9 and Mood disorder F39 [facility] [address] [address] 3[address] Jan, Mood disorder F39 and Dementia associated with other underlying disease without behavioral disturbance F02.80 [place] [address] [address] 6357 Dec, Mood disorder F39 [place] [id number] [place] [address] 98894- 3030 Dec, Mood disorder F39 [place] [id number] [place] [address] 92143- 3903 Nov, [place] [id number] [place] [address] 55467- 1575 Nov, Dementia without behavioral disturbance, unspecified dementia type F03.90 ; Cognitive dysfunction F09 and Major depression F32.9 [facility] [address] [place] [address] October, Encounter for examination for admission to [facility] Z02.2 ; Tardive dyskinesia G24.01 ; Major depression F32.9 ; Anxiety disorder, unspecified F41.9 ; Cognitive dysfunction F09 and Dementia without behavioral disturbance, unspecified dementia type F03.90 [place] [address] [place] [address] 42312- 3493 October, [place] [id number] [place] [address] 60145- 3711 October, [place] [address] [place] [address] 13675- 7979 Sep, Acute deep vein thrombosis (DVT) of proximal vein of left lower extremity I82.4Y2 [place] [address] [place] [address] 46674- 6771 Sep, Mood disorder F39 and Dementia associated with other underlying disease without behavioral disturbance F02.80 [place] [address] [place] [address] 16247- 7486 Sep, Mood disorder F39 and Acute deep vein thrombosis (DVT) of proximal vein of left lower extremity I82.4Y2 [facility] [address] [facility] [id number] [place] [address] 60649- 8164 Sep, [facility] [address] [place] [id number] Sep, History of DVT (deep vein thrombosis) Z86.718 and Dementia F03.90 [facility] [address] [facility] [id number] [place] [address] 48700- 4018 Sep, Mood disorder F39 and Dementia without behavioral disturbance, unspecified dementia type F03.90 [facility] [id number] [place] [address] 02856- 8393 Aug, [facility] [id number] [place] [address] 76990- 1660 Aug, [facility] [id number] [place] [address] [id number] Aug, [facility] [address] [facility] [id number] [place] [address] 92593- 4191 Aug, [facility] [id number] [place] [address] 91732- 4148 Aug, Acute deep vein thrombosis (DVT) of proximal vein of left lower extremity I82.4Y2 [facility] [address] [place] [id number] Aug, Left leg swelling M79.89 [facility] [address] [id number] [address] 0009 Aug, Mood disorder F39 and Dementia without behavioral disturbance, unspecified dementia type F03.90 [facility] [address] [id number] [address] 7504 Jul, [facility] [address] [facility] [id number] [address] 9677 Jul, Dementia without behavioral disturbance, unspecified dementia type F03.90 and Mood disorder F39 [facility] [address] [place] [id number] Jul, Encounter for examination for admission to [facility] Z02.2 ; Rectal bleed K62.5 ; Dementia without behavioral disturbance, unspecified dementia type F03.90 ; Hypertension, benign I10 ; Edema R60.9 and Major depression F32.9 [facility] [id number] [place] [address] [id number] Jul, [facility] [address] 05894- 6693 Apr, Dementia without behavioral disturbance, unspecified dementia type F03.90 and Mood disorder F39 [place] [address] 73364- 2059 Apr, [facility] [id number] [place] [address] 22601- 0836 Feb, Hypertension, benign I10 [facility] [address] 31158- 7580 Dec, Major depression F32.9 ; Anxiety disorder, unspecified F41.9 ; Cognitive dysfunction F09 and Dementia without behavioral disturbance, unspecified dementia type F03.90 [facility] [id number] [place] [address] 95096- 4341 October, Hypertension, benign I10 [facility] [id number] [place] [address] 17352- 3834 Sep, Major depression F32.9 ; Anxiety disorder, unspecified F41.9 and Cognitive dysfunction F09 [facility] [id number] [place] [address] 57904- 4351 Apr, Major depression F32.9 and Cognitive dysfunction F09 [facility] [id number] [place] [address] 57995- 7989 Jan, Anxiety disorder, unspecified F41.9 ; Major depression F32.9 and Cognitive dysfunction F09 [facility] [id number] [place] [address] 17643- 7941 Jan, [facility] [address] [address]- 1026 Dec, [facility] [address] [place] [address] 73538- 9180 Dec, [place] [address] [place] [address] 03980- 8261 Nov, Anxiety disorder, unspecified F41.9 ; Major depression F32.9 and Cognitive dysfunction F09 [place] [address] [place] [address] 14948- 4731 October, Dementia without behavioral disturbance, unspecified dementia type F03.90 [place] [id number] [place] [address] 76809- 3350 Sep, Cognitive dysfunction F09 and Edema R60.9 [place] [id number] [place] [address] 86775- 7207 Sep, Cognitive dysfunction F09 and Edema R60.9 [place] [address] [place] [address] 27979- 7870 Aug, Self-care deficit for medication administration R41.89 ; Self-care deficit in patient living alone R46.89 and Cognitive dysfunction F09 [place] [address] [address]- 0083 Aug, 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 and Unspecified intracranial injury without loss of consciousness, sequela S06.9X0S [place] [address], [place] [address]- 1262 Jul, [place] [address] [place] [address] 91291- 5106 Jun, Anxiety disorder, unspecified F41.9 and Major depression F32.9 [place] [address] [address]- 4469 Jun, [facility] [address], [place] [address]- 0960 May, [facility] [id number] [place] [address] 60338- 4156 May, Nausea R11.0 [facility] [id number] [place] [address] 00495- 8606 Apr, [facility] [id number] [place] [address] 93019- 4724 Mar, Major depression F32.9 [facility] [id number] [place] [address] 92049- 5836 Mar, Encounter for immunization Z23 [facility] [id number] [place] [address] 48666- 1537 Mar, Major depression F32.9 and Anxiety disorder, unspecified F41.9 [facility] [id number] [place] [address] 81144- 1183 Dec, Major depression, chronic 296.20 and Anxiety disorder, unspecified 300.00 [facility] [id number] [place] [address] 48191- 2014 October, Hypertension 401.9 [facility] [address] [place] [address] 14087- 6354 Sep, [facility] [id number] [place] [address] 93457- 3448 Sep, [facility] [id number] [place] [address] 77623- 2178 18 Jul, 2014 [facility] [id number] [place] [address] 79155- 7187 Jul, [facility] [id number] [place] [address] 81962- 9142 Jul, [facility] [id number] [place] [address] 74539- 6852 May, [facility] [place] [facility] [address] [id number] [place] [address]- 3907 May, [facility] [place] [facility] [address] [id number] [place] [address]- 3280 May, [facility] [place] [facility] [address] [id number] [place] [address]- 8401 May, [facility] [place] [facility] [address] [id number] [place] [address]- 1900 Apr, [facility] [place] [facility] [address] [id number] [place] [address]- 9506 Apr, [facility] [place] [facility] [address] [id number] [place] [address]- 6999 Feb, [facility] [place] [facility] [address] [id number] [place] [address]- 2980 Feb, [facility] [place] [facility] [address] [id number] [place] [address]- 6877 Jan, [facility] [place] [facility] [address] [id number] [place] [address]- 9431 Jan, [facility] [place] [facility] [address] [id number] [place] [address]- 2203 Jan, [facility] [place] [facility] [address] [id number] [place] [address]- 9625 Jan, [facility] [place] [facility] [address] [id number] [place] [address]- 3466 Dec, [facility] [place] [facility] [address] [id number] [place] [address]- 4252 Dec, [facility] [place] [facility] [address] [id number] [place] [address]- 4063 Nov, [facility] [place] [facility] [address] [id number] [place] [address]- 7327 Nov, [facility] [place] [facility] [address] [id number] [address]- 2150 Nov, [facility] [place] [facility] [address] [id number] [place] [address]- 0391 Nov, [facility] [place] [facility] [address] [id number] [place] [address]- 3673 October, [facility] [place] [facility] [address] [id number] [place] [address]- 9218 October, [facility] [place] [facility] [address] [id number] [place] [address]- 1204 Sep, [facility] [place] [facility] [address] [id number] [place] [address]- 8848 Sep, [facility] [place] [facility] [address] [id number] [place] [address]- 8644 Sep, [facility] [place] [facility] [address] [id number] [place] [address]- 7075 Sep, [facility] [place] [facility] [address] [id number] [place] [address]- 4366 Sep, [facility] [place] [facility] [address] [id number] [place] [address]- 3169 Sep, [facility] [place] [facility] [address] [facility] [id number] [place] [address]- 4771 Aug, [facility] [place] [facility] [address] [id number] [place] [address]- 4427 Aug, [facility] [place] [facility] [address] [id number] [place] [address]- 1839 Jul, [facility] [place] [facility] [address] [id number] [place] [address]- 9897 Jul, [facility] [place] [facility] [address] [id number] [place] [address]- 5663 May, [facility] [place] [facility] [address] [id number] [place] [address]- 0186 May, [facility] [place] [facility] [address] [id number] [place] 9724 May, [facility] [place] [facility] [address] [id number] [place] [address]- 7085 May, [facility] [place] [facility] [address] [id number] [place] [address]- 4102 May, [facility] [place] [facility] [address] [id number] [place] [address]- 9837 May, [facility] [place] [facility] [address] [id number] [place] [address]- 0418 Apr, [facility] [place] [facility] [address] [id number] [place] [address]- 2876 Apr, [facility] [place] [facility] [address] [id number] [place] [address]- 1031 Apr, [facility] [place] [facility] [address] [id number] [place] [address]- 0676 Apr, [facility] [place] [facility] [address] [id number] [place] [address]- 3206 Apr, [facility] [place] [facility] [address] [id number] [place] [address]- 3808 Apr, [facility] [place] [facility] [address] [id number] [place] [address]- 0893 Feb, [facility] [place] [facility] [address] [id number] [place] [address]- 8803 23 Feb, 2013 [facility] [place] [facility] [address] [id number] [place] [address] 254 18 Feb, 2013 [facility] [place] [facility] [address] [id number] [place] 6365 03 Feb, 2013 [facility] [place] [facility] [address] [id number] [place] [address]- 6497 Jan, [facility] [place] [facility] [address] [id number] [place] [address]- 8042 Dec, [facility] [address] [id number] [place] [address]- 1182 Dec, [facility] [address] [id number] [place] [address]- 9439 Dec, [facility] [address] [id number] [place] [address]- 9161 Dec, [facility] [address] [id number] [place] [address]- 6458 Nov, [facility] [address] [id number] [place] [address]- 2151 Nov, [facility] [address] [id number] [place] [address]- 0977 October, [facility] [address] [id number] [place] [address]- 5113 October, [facility] [address] [id number] [place] [address]- 8560 October, [facility] [address] [id number] [place] [address]- 2084 October, [facility] [address] [id number] [place] [address]- 6532 Sep, [facility] [address] [id number] [place] [address]- 3387 Aug, [facility] [place] [facility] [address] [id number], [place] [address]- 4149 Aug, [facility] [place] [facility] [address] [id number] [place] [address]- 8821 15 Aug, 2012 [facility] [place] [facility] [address] [id number] [place] [address]- 1438 Aug, [facility] [place] [facility] [address] [id number] [place] [address]- 0441 Jul, [facility] [place] [facility] [address] [id number] [place] [address]- 6701 Jul, [facility] [address] [id number] [place] [address]- 4346 Jul, [facility] [place] [facility] [address] [id number] [place] [address]- 8778 Jun, [facility] [address] [id number] [place] [address]- 7983 Jun, [facility] [place] [facility] [address] [id number] [place] [address]- 0939 May, [facility] [address] [id number] [place] [address]- 0911 May, [facility] [place] [facility] [address] [facility] [id number] [place] [address]- 2893 Apr, [facility] [place] [facility] [address] [facility] [id number] [place] [address]- 2075 Apr, [facility] [place] [facility] [address] [facility] [id number] [place] [address]- 4442 Apr, [facility] [place] [facility] [address] [facility] [id number] [place] [address]- 6033 Apr, [facility] [place] [facility] [address] [facility] [id number] [place] [address]- 6864 Apr, [facility] [place] [facility] [address] [facility] [id number] [place] [address]- 7468 Apr, [facility] [place] [facility] [address] [facility] [id number] [place] [address]- 3790 Mar, [facility] [place] [facility] [address] [id number] [place] [address]- 0920 Mar, [facility] [place] [facility] [address] [facility] [id number] [place] [address]- 6200 Mar, [facility] [place] [facility] [address] [facility] [id number] [place] [address]- 1211 Mar, [facility] [place] [facility] [address] [id number] [place] [address]- 4764 Mar, [facility] [place] [facility] [address] [id number] [place] [address]- 3881 Mar, [facility] [place] [facility] [address] [id number] [place] [address]- 7564 Mar, [facility] [place] [facility] [address] [id number] [place] [address]- 1801 Feb, [facility] [place] [facility] [address] [id number] [place] [address]- 9353 Feb, [facility] [place] [facility] [address] [id number] [place] [address]- 3446 Jan, [facility] [place] [facility] [address] [id number] [place] [address]- 4409 Dec, [facility] [place] [facility] [address] [id number] [place] [address]- 7304 Dec, [facility] [place] [facility] [address] [id number] [place] [address]- 0680 Nov, [facility] [place] [facility] [address] [id number], [place] [address]- 2062 Nov, [facility] [place] [facility] [address] [id number], [place] [address]- 1199 Nov, [facility] [place] [facility] [address] [id number][place] [address]- 1146 October, [facility] [place] [facility] [address] [id number] [place] [address]- 3645 Sep, [facility] [place] [facility] [address] [id number] [place] [address]- 3966 16 Sep, 2011 [facility] [place] [facility] [address] [id number], [place] [address]- 0416 Sep, [facility] [place] [facility] [address] [id number], [place] [address]- 6846 26 Aug, 2011 [facility] [address] [id number] [place] [address]- 0426 21 Aug, 2011 [facility] [place] [facility] [address] [id number] [place] [address]- 1856 20 Aug, 2011 [facility] [place] [facility] [address] [id number] [place] [address]- 7696 15 Aug, 2011 [facility] [place] [facility] [address] [id number] [place] [address]- 8984 14 Aug, 2011 [facility] [place] [facility] [address] [id number] [place] [address]- 0646 12 Aug, 2011 [facility] [place] [facility] [address] [id number] [place] [address]- 5133 08 Aug, 2011 [facility] [place] [facility] [address] [id number] [place] [address]- 2989 05 Aug, 2011 [facility] [place] [facility] [address] [id number] [place] [address]- 5891 27 Jul, 2011 [facility] [place] [facility] [address] [id number] [place] [address]- 4239 22 Jul, 2011 [facility] [place] [facility] [address] [facility] [id number] [place] [address]- 6549 20 Jul, 2011 [facility] [place] [facility] [address] [id number] [place] [address]- 2716 15 Jul, 2011 [facility] [place] [facility] [address] [id number] [place] [address]- 2546 06 Jul, 2011 [facility] [place] [facility] [address] [id number] [place] [address]- 2526 03 Jul, 2011 [facility] [place] [facility] [address] [facility] [id number] [place] [address]- 8076 27 Jun, 2011 [facility] [place] [facility] [address] [id number] [place] [address] Jun, [facility] [place] [facility] [address] [id number] [place] [address] 10 Jun, 2011 [facility] [address] [id number] [place] [address] Jun, [facility] [address] [id number] [place] [address] May, [facility] [address] [id number] [place] [address] May, [facility] [address] [id number] [place] [address] May, [facility] [address] [id number] [place] [address] May, [facility] [address] [id number] [place] [address] May, [facility] [address] [id number] [place] [address] 30 Apr, 2011 [facility] [address] [id number] [place] [address] 14 Apr, 2011 [facility] [address] [id number] [place] [address] 31 Mar, 2011 [facility] [address] [id number] [place] [address] 15 Feb, 2011 [facility] [address] [id number] [place] [address] 12 Feb, 2011 [facility] [place] [facility] [address] [id number] [place] [address] May, [facility] [place] [facility] [address] [id number] [place] [address] 23 Apr, 2010 [facility] [place] [facility] [address] [id number] [place] [address] 15 Apr, 2010 [facility] [place] [facility] [address] [id number] [place] [address] Apr, [facility] [address] [facility] [id number] [address] Apr, [facility] [address] [facility] [id number], [place] [address] Apr, [facility] [address] [facility] [id number], [place] [address] Apr, [facility] [address] [facility] [id number], [place] [address] Mar, [facility] [address] [facility] [id number], [place] [address] Mar, [facility] [address] [facility] [id number], [place] [address] Sep, IMMUNIZATIONS No Known Immunizations SOCIAL HISTORY Never Assessed REASON FOR VISIT f/u ---KALLI Guzman PLAN OF CARE Activity Details Follow Up 2 Months Reason: VITAL SIGNS Height 68.25 in 2018-02-04 Weight 187.0 lbs 2018-02-04 Heart Rate 104 bpm 2018-02-04 Respiratory Rate 20 2018-02-04 BMI 28.22 kg/m2 2018-02-04 Blood pressure systolic 114 mmHg 2018-02-04 Blood pressure diastolic 68 mmHg 2018-02-04 MEDICATIONS Medication Instructions Dosage Frequency Start Date End Date Duration Status Colace 100 MG Orally bid 1 capsule 12h Active Eliquis 5 mg Orally 2 times a day 1 tablet 12h Aug, 30 days Active Pantoprazole Sodium 40 mg Orally Once a day 1 tablet 24h 30 days Active Trihexyphenidyl HCl 2 MG Orally TID 0.5 tablet 8h Jul, Active Lactulose 20 GM/30ML Orally bid 1 packet 12h Active Tylenol 325 MG Orally every 4 hrs 2 tablets as needed 4h Aug, Active Lisinopril 10 mg Orally Once a day 1 tablet 24h 30 days Active Prozac 20mg orally daily 1 tab 24h Active Abilify 10 MG Orally Once a day 1 tablet 24h Active Quetiapine Fumarate 100 mg Orally Once a day at hs after tapering up with the 50mg tab to 200mg 2 tablet Jan, Active Simvastatin 10 MG Orally Once a day 1 tablet in the evening 24h Active Norvasc 5 MG Orally Once a day 1 tablet 24h Active RESULTS No Results PROCEDURES Procedure Date Ordered Result Body Site [facility] VISIT ESTABLISHED PATIENT Feb 04, 2018 INSTRUCTIONS MEDICATIONS ADMINISTERED No Known Medications [...] attempts Hospitalization History Ischemic colitis, dementia, generalized debility-[facility] 07/30/17
--- OUTSIDE RECORDS SUMMARY | 2018-06-23 23:11 | XMS REPORT ---
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 053890804 Problem Anxiety disorder, unspecified F41.9 Active 936355638 Problem Major depression F32.9 Active 148882833 ALLERGIES No Information ENCOUNTERS Encounter Location Date Diagnosis [place] [id number] [place] [address] 25989- 5682 Mar, [facility] [id number] [place] [address] 07386- 5822 Jan, Mood disorder F39 and Dementia associated with other underlying disease without behavioral disturbance F02.80 [facility] [address] [place] [id number] Jan, Dental examination Z01.20 [facility] [address] [place] [address] Jan, Dementia F03.90 ; Mood disorder F39 ; Cognitive dysfunction F09 ; Hypertension, benign I10 ; Hypokalemia E87.6 and History of DVT of lower extremity Z86.718 [facility] [id number] [place] [address] 40256- 6521 Jan, Anxiety disorder, unspecified F41.9 and Mood disorder F39 [facility] [id number] [place] [address] 24550- 6826 Jan, Mood disorder F39 and Dementia associated with other underlying disease without behavioral disturbance F02.80 [facility] [address] [address] 59[address] Dec, Mood disorder F39 [facility] [address], [place] [address] 45[address] Dec, Mood disorder F39 [facility] [id number] [place] [address] 67625- 2918 Nov, [facility] [id number] [place] [address] 36248- 0346 Nov, Dementia without behavioral disturbance, unspecified dementia type F03.90 ; Cognitive dysfunction F09 and Major depression F32.9 [employer] [facility] [address] [place] [address] October, Encounter for examination for admission to fdc Z02.2 ; Tardive dyskinesia G24.01 ; Major depression F32.9 ; Anxiety disorder, unspecified F41.9 ; Cognitive dysfunction F09 and Dementia without behavioral disturbance, unspecified dementia type F03.90 [place] [address] [place] [address] 81492- 7622 October, [facility] [address] [place] [address] 25816- 0555 October, [facility] [address] [place] [address] 77208- 9091 Sep, Acute deep vein thrombosis (DVT) of proximal vein of left lower extremity I82.4Y2 [facility] [address] [address] 49[address] Sep, Mood disorder F39 and Dementia associated with other underlying disease without behavioral disturbance F02.80 [facility] [address], [place] [address] 08[address] Sep, Mood disorder F39 and Acute deep vein thrombosis (DVT) of proximal vein of left lower extremity I82.4Y2 [facility] [id number] [address] Sep, [facility] [employer] [facility] [facility] [address] [place] [id number] Sep, History of DVT (deep vein thrombosis) Z86.718 and Dementia F03.90 [facility] [address], [place] [address] 7[address] Sep, Mood disorder F39 and Dementia without behavioral disturbance, unspecified dementia type F03.90 [facility] [address] [facility] [id number], [place] [address] Aug, [place] [address] [place] [address] 62883- 7653 Aug, [facility] [place] [address] [id number] [id number] Aug, [facility] [address], [place] [address] 4071 Aug, [facility] [address], [place] [address] 1022 Aug, Acute deep vein thrombosis (DVT) of proximal vein of left lower extremity I82.4Y2 [facility] [email or web address] [address] [place] [id number] Aug, Left leg swelling M79.89 [facility] [address], [place] [address] 9[address] Aug, Mood disorder F39 and Dementia without behavioral disturbance, unspecified dementia type F03.90 [facility] [id number] [address] 32[address] Jul, [facility] [address], [place] [address] 3105 Jul, Dementia without behavioral disturbance, unspecified dementia type F03.90 and Mood disorder F39 [facility] [address] [place] [id number] Jul, Encounter for examination for admission to fdc Z02.2 ; Rectal bleed K62.5 ; Dementia without behavioral disturbance, unspecified dementia type F03.90 ; Hypertension, benign I10 ; Edema R60.9 and Major depression F32.9 [facility] [place] [id number] [place] [address] [id number] Jul, [facility] [id number] [place] [address] 13788095- 2773 Apr, Dementia without behavioral disturbance, unspecified dementia type F03.90 and Mood disorder F39 [facility] [id number] [place] [address] 20836- 7179 Apr, [facility] [id number] [place] [address] 73583- 5004 Feb, Hypertension, benign I10 [facility] [id number] [place] [address] 61704- 1015 Dec, Major depression F32.9 ; Anxiety disorder, unspecified F41.9 ; Cognitive dysfunction F09 and Dementia without behavioral disturbance, unspecified dementia type F03.90 [facility] [address], [place] [address] 5580 October, Hypertension, benign I10 [facility] [address] [place] [address] 76684- 4854 Sep, Major depression F32.9 ; Anxiety disorder, unspecified F41.9 and Cognitive dysfunction F09 [facility] [address] [place] [address] 54903- 3347 Apr, Major depression F32.9 and Cognitive dysfunction F09 [facility] [address] [place] [address] 97708- 7182 Jan, Anxiety disorder, unspecified F41.9 ; Major depression F32.9 and Cognitive dysfunction F09 [facility] [address] [place] [address] 09194- 0874 Jan, [facility] [id number] [place] [address] 13928- 0088 Dec, [place] [address], [place] [address]- 3689 Dec, [place] [id number] [place] [address] 11865- 5568 Nov, Anxiety disorder, unspecified F41.9 ; Major depression F32.9 and Cognitive dysfunction F09 [place] [id number] [place] [address] 10669- 8898 October, Dementia without behavioral disturbance, unspecified dementia type F03.90 [place] [id number] [place] [address] 98460- 8939 Sep, Cognitive dysfunction F09 and Edema R60.9 [place] [id number] [place] [address] 98213- 3601 Sep, Cognitive dysfunction F09 and Edema R60.9 [place] [id number] [place] [address] 84311- 9156 Aug, Self-care deficit for medication administration R41.89 ; Self-care deficit in patient living alone R46.89 and Cognitive dysfunction F09 [place] [address] [place] [address] 93053- 4274 Aug, 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 and Unspecified intracranial injury without loss of consciousness, sequela S06.9X0S [place] [address], [place] [address]- 2042 Jul, [place] [address] [place] [address] 68572- 0598 Jun, Anxiety disorder, unspecified F41.9 and Major depression F32.9 [place] [address] [place] [address] 429860- 4398 Jun, [place] [address], [place] [address]- 8235 May, [place] [id number], [place] [address]- 9637 May, Nausea R11.0 [facility] [id number] [place] [address] 68540- 2805 Apr, [facility] [id number] [place] [address] 87958- 2763 Mar, Major depression F32.9 [facility] [id number] [place] [address] 72354- 5444 Mar, Encounter for immunization Z23 [facility] [id number] [place] [address] 52811- 3284 Mar, Major depression F32.9 and Anxiety disorder, unspecified F41.9 [facility] [id number] [place] [address] 35645- 0034 Dec, Major depression, chronic 296.20 and Anxiety disorder, unspecified 300.00 [facility] [id number] [place] [address] 25231- 7665 October, Hypertension 401.9 [facility] [id number] [place] [address] 26227- 9308 Sep, [facility] [id number] [place] [address] 29350- 7224 Sep, [facility] [address], [place] [address]- 5829 Jul, [facility] [id number] [place] [address] 66321- 0831 Jul, [facility] [address] [place] [address] 10259- 9136 Jul, [facility] [address] [place] [address] 314373- 8889 May, [facility] [address], [place] [address]- 3030 May, [facility] [id number] [place] [address]- 4797 May, [facility] [place] [facility] [address] [id number] [place] [address]- 6356 May, [facility] [place] [facility] [address] [id number] [place] [address]- 1013 Apr, [facility] [place] [facility] [address] [id number] [place] [address]- 4339 Apr, [facility] [place] [facility] [address] [id number] [place] [address]- 7112 Feb, [facility] [place] [facility] [address] [id number] [place] [address]- 4772 Feb, [facility] [place] [facility] [address] [id number] [place] [address]- 8999 Jan, [facility] [place] [facility] [address] [id number] [place] [address]- 6908 Jan, [facility] [place] [facility] [address] [id number] [place] [address]- 3270 Jan, [facility] [place] [facility] [address] [id number] [place] [address]- 0659 Jan, [facility] [place] [facility] [address] [id number] [place] [address]- 9963 Dec, [facility] [place] [facility] [address] [id number] [place] [address]- 5527 Dec, [facility] [place] [facility] [address] [id number] [place] [address]- 3761 Nov, [facility] [place] [facility] [address] [id number] [place] [address]- 5534 Nov, [facility] [place] [facility] [address] [id number] [place] [address]- 3380 Nov, [facility] [place] [facility] [address] [id number] [place] [address]- 5636 Nov, [facility] [place] [facility] [address] [id number] [place] [address]- 8990 October, [facility] [place] [facility] [address] [id number] [place] [address]- 4687 October, [facility] [place] [facility] [address] [id number] [place] [address]- 6540 Sep, [facility] [place] [facility] [address] [id number] [place] [address]- 8946 Sep, [facility] [place] [facility] [address] [id number] [place] [address]- 5460 Sep, [facility] [place] [facility] [address] [id number] [place] [address]- 1083 Sep, [facility] [place] [facility] [address] [id number] [place] [address]- 5432 Sep, [facility] [place] [facility] [address] [id number] [place] [address]- 3117 Sep, [facility] [place] [facility] [address] [id number] [place] [address]- 2522 Aug, [facility] [place] [facility] [address] [id number] [place] [address]- 2967 Aug, [facility] [place] [facility] [address] [id number] [place] [address]- 3664 Jul, [facility] [place] [facility] [address] [id number] [place] [address]- 4782 Jul, [facility] [place] [facility] [address] [id number] [place] [address]- 9130 May, [facility] [place] [facility] [address] [id number] [place] [address]- 0251 May, [facility] [place] [facility] [address] [id number] [place] [address]- 2470 May, [facility] [place] [facility] [address] [id number] [place] [address]- 4494 May, [facility] [address] [id number] [place] [address]- 8773 May, [facility] [place] [facility] [address] [id number] [place] [address]- 1510 May, [facility] [address] [id number] [place] [address]- 8290 Apr, [facility] [place] [facility] [address] [id number] [place] [address]- 7751 Apr, [facility] [address] [id number] [place] [address]- 2169 Apr, [facility] [place] [facility] [address] [id number] [place] [address]- 9991 Apr, [facility] [address] [id number] [place] [address]- 0149 Apr, [facility] [place] [facility] [address] [id number] [place] [address]- 7247 Apr, [facility] [place] [facility] [address] [id number] [place] [address]- 9351 Feb, [facility] [place] [facility] [address] [id number] [place] [address]- 1929 Feb, [facility] [place] [facility] [address] [id number] [place] [address]- 8711 18 Feb, 2013 [facility] [place] [facility] [address] [id number] [place] [address]- 2542 Feb, [facility] [place] [facility] [address] [id number] [place] [address]- 2402 Jan, [facility] [place] [facility] [address] [id number] [place] [address]- 0296 Dec, [facility] [place] [facility] [address] [id number] [place] [address]- 6185 Dec, [facility] [place] [facility] [address] [id number] [place] [address]- 8830 Dec, [facility] [address] [id number] [place] [address]- 7693 Dec, [facility] [address] [id number] [place] [address]- 0834 Nov, [facility] [address] [id number] [place] [address] 2546 Nov, [facility] [address] [id number] [place] [address]- 2749 October, [facility] [address] [id number] [place] [address]- 9696 October, [facility] [address] [id number] [place] [address]- 0793 October, [facility] [address] [id number] [place] [address]- 1063 October, [facility] [address] [id number] [place] [address]- 8834 Sep, [facility] [address] [id number] [place] [address]- 8453 Aug, [facility] [address] [id number] [place] [address]- 8337 Aug, [facility] [place] [facility] [address] [id number] [place] [address]- 9606 15 Aug, 2012 [facility] [place] [facility] [address] [id number] [place] [address]- 0117 Aug, [facility] [place] [facility] [address] [id number] [place] [address]- 2066 Jul, [facility] [place] [facility] [address] [id number] [place] [address]- 2546 Jul, [facility] [place] [facility] [address] [id number], [place] [address]- 0749 Jul, [facility] [place] [facility] [address] [id number] [place] [address]- 5555 Jun, [facility] [place] [facility] [address] [id number] [place] [address]- 0907 Jun, [facility] [place] [facility] [address] [facility] [id number] [place] [address]- 2930 May, [facility] [place] [facility] [address] [id number] [place] [address]- 5470 May, [facility] [place] [facility] [address] [id number] [place] [address]- 6504 Apr, [facility] [place] [facility] [address] [id number] [place] [address]- 2156 Apr, [facility] [place] [facility] [address] [facility] [id number] [place] [address]- 5955 Apr, [facility] [place] [facility] [address] [id number] [place] [address]- 6504 Apr, [facility] [place] [facility] [address] [id number] [place] [address]- 1590 Apr, [facility] [place] [facility] [address] [facility] [id number], [place] [address]- 2548 Apr, [facility] [place] [facility] [address] [id number], [place] [address]- 7380 Mar, [facility] [place] [facility] [address] [id number], [place] [address]- 7111 Mar, [facility] [place] [facility] [address] [id number], [place] [address]- 8393 Mar, [facility] [place] [facility] [address] [id number], [place] [address]- 4402 Mar, [facility] [place] [facility] [address] [facility] [id number] [place] [address]- 4193 Mar, [facility] [place] [facility] [address] [id number] [place] [address]- 1667 Mar, [facility] [place] [facility] [address] [id number] [place] [address]- 3745 Mar, [facility] [place] [facility] [address] [id number] [place] [address] 2546 Feb, [facility] [place] [facility] [address] [id number] [place] [address] 2546 Feb, [facility] [place] [facility] [address] [id number] [place] [address] 2546 Jan, [facility] [place] [facility] [address] [id number] [place] [address]- 5763 Dec, [facility] [place] [facility] [address] [id number] [place] [address]- 7317 Dec, [facility] [place] [facility] [address] [id number] [place] [address]- 8571 Nov, [facility] [place] [facility] [address] [id number] [place] [address]- 0127 Nov, [facility] [place] [facility] [address] [id number] [place] [address]- 3696 Nov, [facility] [place] [facility] [address] [id number] [place] [address]- 8269 October, [facility] [place] [facility] [address] [id number] [place] [address]- 7503 Sep, [facility] [place] [facility] [address] [id number] [place] [address]- 8873 16 Sep, 2011 [facility] [place] [facility] [address] [id number] [place] [address]- 4758 Sep, [facility] [place] [facility] [address] [id number] [place] [address] 2546 Aug, [facility] [place] [facility] [address] [id number] [place] [address]- 1940 Aug, [facility] [place] [facility] [address] [id number] [place] [address]- 1566 20 Aug, 2011 [facility] [place] [facility] [address] [id number] [place] [address]- 0576 15 Aug, 2011 [facility] [place] [facility] [address] [id number] [place] [address]- 5829 14 Aug, 2011 [facility] [place] [facility] [address] [id number] [place] [address]- 6912 12 Aug, 2011 [facility] [place] [facility] [address] [id number] [place] [address]- 0445 08 Aug, 2011 [facility] [place] [facility] [address] [id number] [place] [address]- 7793 05 Aug, 2011 [facility] [place] [facility] [address] [id number] [place] [address]- 1584 Jul, [facility] [place] [facility] [address] [id number] [place] [address]- 6009 Jul, [facility] [place] [facility] [address] [id number] [place] [address]- 4751 Jul, [facility] [place] [facility] [address] [id number] [place] [address]- 6198 15 Jul, 2011 [facility] [place] [facility] [address] [id number] [place] [address] Jul, [facility] [place] [facility] [address] [id number] [place] [address] Jul, [facility] [place] [facility] [address] [id number] [place] [address] Jun, [facility] [place] [facility] [address] [id number] [place] [address] Jun, [facility] [place] [facility] [address] [id number] [place] [address] Jun, [facility] [place] [facility] [address] [id number] [place] [address] 02 Jun, 2011 [facility] [address] [id number] [place] [address] 29 May, 2011 [facility] [address] [id number] [place] [address] May, [facility] [address] [id number] [place] [address] May, [facility] [address] [id number] [place] [address] May, [facility] [address] [id number] [place] [address] May, [facility] [address] [id number] [place] [address] 30 Apr, 2011 [facility] [address] [id number] [place] [address] 14 Apr, 2011 [facility] [address] [id number] [place] [address] 31 Mar, 2011 [facility] [address] [id number] [place] [address] 15 Feb, 2011 [facility] [address] [id number] [place] [address] 12 Feb, 2011 [facility] [address] [id number] [place] [address] May, [facility] [address] [id number] [place] [address] 23 Apr, 2010 [facility] [place] [facility] [address] [id number] [place] [address] 15 Apr, 2010 [facility] [place] [facility] [address] [id number] [place] [address] 15 Apr, 2010 [facility] [address] [id number] [place] [address] Apr, [facility] [address] [facility] [id number], [place] [address] Apr, [facility] [address] [id number], [place] [address] Apr, [facility] [address] [facility] [id number], [place] [address] Mar, [facility] [address] [id number], [place] [address] Mar, [facility] [address] [facility] [id number], [place] [address] Sep, IMMUNIZATIONS No Known Immunizations SOCIAL HISTORY Never Assessed REASON FOR VISIT Update Request PLAN OF CARE VITAL SIGNS MEDICATIONS Unknown [...] attempts Hospitalization History Ischemic colitis, dementia, generalized debility-[facility] 07/30/17
--- OUTSIDE RECORDS SUMMARY | 2018-06-23 23:12 | XMS REPORT ---
Author Author CARO CAMARA Organization [facility] Address [address] [place] [address] Care Team Providers Care Emergency Room Technician Name Role Phone CARO CAMARA Unavailable PROBLEMS Type Condition ICD9-CM Code YWP70-VL Code Onset Dates Condition Status SNOMED Code Problem Mood disorder F39 Active 89575564 Problem Dementia F03.90 Active 17247830 Problem Hypertension, benign I10 Active 06966334 Problem Cognitive dysfunction F09 Active 999653330 Problem 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 233041045 Problem Anxiety disorder, unspecified F41.9 Active 845015161 Problem Major depression F32.9 Active [id number] ALLERGIES No Information ENCOUNTERS Encounter Location Date Diagnosis [place] [id number] [place] [address] 90201- 0211 Mar, [facility] [id number] [place] [address] 30999- 4506 Jan, Mood disorder F39 and Dementia associated with other underlying disease without behavioral disturbance F02.80 [facility] [id number] [place] [address] [id number] Jan, Dental examination Z01.20 [facility] [address] [place] [address] Jan, Dementia F03.90 ; Mood disorder F39 ; Cognitive dysfunction F09 ; Hypertension, benign I10 ; Hypokalemia E87.6 and History of DVT of lower extremity Z86.718 [facility] [id number] [place] [address] 22335- 9677 Jan, Anxiety disorder, unspecified F41.9 and Mood disorder F39 [facility] [id number] [place] [address] 67955- 0967 Jan, Mood disorder F39 and Dementia associated with other underlying disease without behavioral disturbance F02.80 [facility] [address] [address] 8[address] Dec, Mood disorder F39 [facility] [address] [address] 7631 Dec, Mood disorder F39 [facility] [id number] [place] [address] 04138- 9439 Nov, [facility] [id number] [place] [address] 27319- 0418 Nov, Dementia without behavioral disturbance, unspecified dementia type F03.90 ; Cognitive dysfunction F09 and Major depression F32.9 [facility] [address] [place] [address] October, Encounter for examination for admission to detention Z02.2 ; Tardive dyskinesia G24.01 ; Major depression F32.9 ; Anxiety disorder, unspecified F41.9 ; Cognitive dysfunction F09 and Dementia without behavioral disturbance, unspecified dementia type F03.90 [place] [id number] [place] [address] 88912- 1577 October, [facility] [id number] [place] [address] 75206- 6724 October, [facility] [id number] [place] [address] 04462- 5406 Sep, Acute deep vein thrombosis (DVT) of proximal vein of left lower extremity I82.4Y2 [facility] [address], [place] [address] 0582 Sep, Mood disorder F39 and Dementia associated with other underlying disease without behavioral disturbance F02.80 [facility] [address], [place] [address] 0821 Sep, Mood disorder F39 and Acute deep vein thrombosis (DVT) of proximal vein of left lower extremity I82.4Y2 [facility] [id number] [address] Sep, [facility] [facility] [address] [place] [id number] Sep, History of DVT (deep vein thrombosis) Z86.718 and Dementia F03.90 [facility] [address], [place] [address] 2599 Sep, Mood disorder F39 and Dementia without behavioral disturbance, unspecified dementia type F03.90 [facility] [address] [facility] [id number] [address] Aug, [place] [id number] [place] [address] 06262- 6647 Aug, [facility] [address] [id number] [id number] Aug, [facility] [address] [address] 84[address] Aug, [facility] [address], [place] [address] 6320 Aug, Acute deep vein thrombosis (DVT) of proximal vein of left lower extremity I82.4Y2 [facility] [address] [place] [id number] Aug, Left leg swelling M79.89 [facility] [address], [place] [address] 4773 Aug, Mood disorder F39 and Dementia without behavioral disturbance, unspecified dementia type F03.90 [facility] [id number] [address] 0769 Jul, [facility] [address], [place] [address] 1003 Jul, Dementia without behavioral disturbance, unspecified dementia type F03.90 and Mood disorder F39 [email or web address] [address] [place] [id number] Jul, Encounter for examination for admission to detention Z02.2 ; Rectal bleed K62.5 ; Dementia without behavioral disturbance, unspecified dementia type F03.90 ; Hypertension, benign I10 ; Edema R60.9 and Major depression F32.9 [facility] [id number] [place] [address] [id number] Jul, [facility] [id number] [place] [address] 94198417- 0639 Apr, Dementia without behavioral disturbance, unspecified dementia type F03.90 and Mood disorder F39 [facility] [id number] [place] [address] 59321- 7144 Apr, [facility] [id number] [place] [address] 35736- 0638 Feb, Hypertension, benign I10 [facility] [id number] [place] [address] 28845- 4030 Dec, Major depression F32.9 ; Anxiety disorder, unspecified F41.9 ; Cognitive dysfunction F09 and Dementia without behavioral disturbance, unspecified dementia type F03.90 [facility] [address], [place] [address] 3123 October, Hypertension, benign I10 [facility] [address] [place] [address] 61151- 5284 Sep, Major depression F32.9 ; Anxiety disorder, unspecified F41.9 and Cognitive dysfunction F09 [facility] [address] [place] [address] 47165- 5464 Apr, Major depression F32.9 and Cognitive dysfunction F09 [facility] [address] [place] [address] 60733- 0386 Jan, Anxiety disorder, unspecified F41.9 ; Major depression F32.9 and Cognitive dysfunction F09 [facility] [id number] [place] [address] 24691- 0150 Jan, [facility] [id number] [place] [address] 05535- 6984 Dec, [place] [address], [place] [address]- 7975 Dec, [place] [id number] [place] [address] 48883- 6317 Nov, Anxiety disorder, unspecified F41.9 ; Major depression F32.9 and Cognitive dysfunction F09 [place] [id number] [place] [address] 75664- 3596 October, Dementia without behavioral disturbance, unspecified dementia type F03.90 [place] [id number] [place] [address] 55556- 2461 Sep, Cognitive dysfunction F09 and Edema R60.9 [place] [id number] [place] [address] 48664- 7109 Sep, Cognitive dysfunction F09 and Edema R60.9 [place] [id number] [place] [address] 56208- 7908 Aug, Self-care deficit for medication administration R41.89 ; Self-care deficit in patient living alone R46.89 and Cognitive dysfunction F09 [place] [address] [place] [address] 01938- 8626 Aug, 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 and Unspecified intracranial injury without loss of consciousness, sequela S06.9X0S [place] [address], [place] [address]- 6045 Jul, [place] [address] [place] [address] 66474- 5159 Jun, Anxiety disorder, unspecified F41.9 and Major depression F32.9 [place] [address] [place] [address] 538883- 6474 Jun, [place] [address], [place] [address]- 1464 May, [place] [address] [address]- 9685 May, Nausea R11.0 [facility] [id number] [place] [address] 69570- 4297 Apr, [facility] [id number] [place] [address] 44076- 4637 Mar, Major depression F32.9 [facility] [id number] [place] [address] 30524- 4960 Mar, Encounter for immunization Z23 [facility] [id number] [place] [address] 41728- 0151 Mar, Major depression F32.9 and Anxiety disorder, unspecified F41.9 [facility] [id number] [place] [address] 99497- 1037 Dec, Major depression, chronic 296.20 and Anxiety disorder, unspecified 300.00 [facility] [id number] [place] [address] 04101- 6452 October, Hypertension 401.9 [facility] [id number] [place] [address] 80448- 1023 Sep, [facility] [id number] [place] [address] 21492- 5778 Sep, [facility] [address], [place] [address]- 7018 Jul, [facility] [id number] [place] [address] 65263- 5616 Jul, [facility] [address] [place] [address] 71146- 0196 Jul, [facility] [address] [place] [address] 248012- 4522 May, [facility] [address], [place] [address]- 3606 May, [facility] [id number] [place] [address]- 5326 May, [facility] [place] [facility] [address] [id number] [place] [address]- 3023 May, [facility] [place] [facility] [address] [id number] [place] [address]- 4188 Apr, [facility] [place] [facility] [address] [id number] [place] [address]- 1440 Apr, [facility] [place] [facility] [address] [id number] [place] [address]- 5651 Feb, [facility] [place] [facility] [address] [id number] [place] [address]- 4382 Feb, [facility] [place] [facility] [address] [id number] [place] [address]- 2379 Jan, [facility] [place] [facility] [address] [id number] [place] [address]- 3674 Jan, [facility] [place] [facility] [address] [id number] [place] [address]- 8581 Jan, [facility] [place] [facility] [address] [id number] [place] [address]- 5681 Jan, [facility] [place] [facility] [address] [id number] [place] [address]- 3097 Dec, [facility] [place] [facility] [address] [id number] [place] [address]- 5017 Dec, [facility] [place] [facility] [address] [id number] [place] [address]- 8764 Nov, [facility] [place] [facility] [address] [id number] [place] [address]- 4943 Nov, [facility] [place] [facility] [address] [id number] [place] [address]- 6393 Nov, [facility] [place] [facility] [address] [id number] [place] [address]- 9824 Nov, [facility] [place] [facility] [address] [id number] [place] [address]- 9186 October, [facility] [place] [facility] [address] [id number] [place] [address]- 3437 October, [facility] [place] [facility] [address] [id number] [place] [address]- 2088 Sep, [facility] [place] [facility] [address] [id number] [place] [address]- 1470 Sep, [facility] [place] [facility] [address] [id number] [place] [address]- 5456 Sep, [facility] [place] [facility] [address] [id number] [place] [address]- 0378 Sep, [facility] [place] [facility] [address] [id number] [place] [address]- 1160 Sep, [facility] [place] [facility] [address] [id number] [place] [address]- 0726 Sep, [facility] [place] [facility] [address] [id number] [place] [address]- 7310 Aug, [facility] [place] [facility] [address] [id number] [place] [address]- 7741 Aug, [facility] [place] [facility] [address] [id number] [place] [address]- 0575 Jul, [facility] [place] [facility] [address] [id number] [place] [address]- 1409 Jul, [facility] [place] [facility] [address] [id number] [place] [address]- 7284 May, [facility] [place] [facility] [address] [id number] [place] [address]- 1792 May, [facility] [place] [facility] [address] [id number] [place] [address]- 8660 May, [facility] [place] [facility] [address] [id number] [place] [address]- 6830 May, [facility] [address] [id number] [place] [address]- 9389 May, [facility] [place] [facility] [address] [id number] [place] [address]- 7892 May, [facility] [address] [id number] [place] [address]- 6721 Apr, [facility] [place] [facility] [address] [id number] [place] [address]- 6293 Apr, [facility] [address] [id number] [place] [address]- 2939 Apr, [facility] [place] [facility] [address] [id number] [place] [address]- 0347 Apr, [facility] [address] [id number] [place] [address]- 7530 Apr, [facility] [place] [facility] [address] [id number] [place] [address]- 8737 Apr, [facility] [place] [facility] [address] [id number] [place] [address]- 7530 Feb, [facility] [place] [facility] [address] [id number] [place] [address]- 7152 Feb, [facility] [place] [facility] [address] [id number] [place] [address]- 2796 18 Feb, 2013 [facility] [place] [facility] [address] [id number] [place] [address]- 2549 Feb, [facility] [place] [facility] [address] [id number] [place] [address]- 5387 Jan, [facility] [place] [facility] [address] [id number] [place] [address]- 9165 Dec, [facility] [place] [facility] [address] [id number] [place] [address]- 9029 Dec, [facility] [place] [facility] [address] [id number] [place] [address]- 2912 Dec, [facility] [address] [id number] [place] [address]- 0069 Dec, [facility] [address] [id number] [place] [address]- 7821 Nov, [facility] [address] [id number] [place] [address] 2546 Nov, [facility] [address] [id number] [place] [address]- 8741 October, [facility] [address] [id number] [place] [address]- 9076 October, [facility] [address] [id number] [place] [address]- 7669 October, [facility] [address] [id number] [place] [address]- 8234 October, [facility] [address] [id number] [place] [address]- 8069 Sep, [facility] [address] [id number] [place] [address]- 7034 Aug, [facility] [address] [id number] [place] [address]- 1793 Aug, [facility] [place] [facility] [address] [id number] [place] [address]- 2826 15 Aug, 2012 [facility] [place] [facility] [address] [id number] [place] [address]- 1268 Aug, [facility] [place] [facility] [address] [id number] [place] [address]- 2016 Jul, [facility] [place] [facility] [address] [id number] [place] [address]- 2546 Jul, [facility] [place] [facility] [address] [id number], [place] [address]- 8104 Jul, [facility] [place] [facility] [address] [id number] [place] [address]- 7925 Jun, [facility] [place] [facility] [address] [id number] [place] [address]- 2330 Jun, [facility] [place] [facility] [address] [facility] [facility] [id number] [place] [address]- 9849 May, [facility] [place] [facility] [address] [id number] [place] [address]- 9685 May, [facility] [place] [facility] [address] [id number] [place] [address]- 0173 Apr, [facility] [place] [facility] [address] [id number] [place] [address]- 6192 Apr, [facility] [place] [facility] [address] [facility] [address] [facility] [id number] [place] [address]- 5832 Apr, [facility] [place] [facility] [address] [id number] [place] [address]- 7370 Apr, [facility] [place] [facility] [address] [id number] [place] [address]- 0305 Apr, [facility] [place] [facility] [address] [facility] [address] [facility] [id number], [place] [address]- 0511 Apr, [facility] [place] [facility] [address] [id number], [place] [address]- 7216 Mar, [facility] [place] [facility] [address] [id number], [place] [address]- 4073 Mar, [facility] [place] [facility] [address] [id number], [place] [address]- 6343 Mar, [facility] [place] [facility] [address] [id number], [place] [address]- 0963 Mar, [facility] [place] [facility] [address] [facility] [address] [facility] [id number] [place] [address]- 1881 Mar, [facility] [place] [facility] [address] [id number] [place] [address]- 7955 Mar, [facility] [place] [facility] [address] [id number] [place] [address]- 7643 Mar, [facility] [place] [facility] [address] [id number] [place] [address] 2546 Feb, [facility] [place] [facility] [address] [id number] [place] [address] 2546 Feb, [facility] [place] [facility] [address] [id number] [place] [address] 2546 Jan, [facility] [place] [facility] [address] [id number] [place] [address]- 5857 Dec, [facility] [place] [facility] [address] [id number] [place] [address]- 5736 Dec, [facility] [place] [facility] [address] [id number] [place] [address]- 3363 Nov, [facility] [place] [facility] [address] [id number] [place] [address]- 8678 Nov, [facility] [place] [facility] [address] [id number] [place] [address]- 8182 Nov, [facility] [place] [facility] [address] [id number] [place] [address]- 6567 October, [facility] [place] [facility] [address] [id number] [place] [address]- 6974 Sep, [facility] [place] [facility] [address] [id number] [place] [address]- 4583 16 Sep, 2011 [facility] [place] [facility] [address] [id number] [place] [address]- 4278 Sep, [facility] [place] [facility] [address] [id number] [place] [address] 2546 Aug, [facility] [place] [facility] [address] [id number] [place] [address]- 5753 Aug, [facility] [place] [facility] [address] [id number] [place] [address]- 5117 20 Aug, 2011 [facility] [place] [facility] [address] [id number] [place] [address]- 3146 15 Aug, 2011 [facility] [place] [facility] [address] [id number] [place] [address]- 6507 14 Aug, 2011 [facility] [place] [facility] [address] [id number] [place] [address]- 6912 12 Aug, 2011 [facility] [place] [facility] [address] [id number] [place] [address]- 0584 08 Aug, 2011 [facility] [place] [facility] [address] [id number] [place] [address]- 5946 05 Aug, 2011 [facility] [place] [facility] [address] [id number] [place] [address]- 4598 Jul, [facility] [place] [facility] [address] [id number] [place] [address]- 1255 Jul, [facility] [place] [facility] [address] [id number] [place] [address] Jul, [facility] [place] [facility] [address] [id number] [place] [address] 15 Jul, 2011 [facility] [place] [facility] [address] [id number] [place] [address] Jul, [facility] [place] [facility] [address] [id number] [place] [address] Jul, [facility] [place] [facility] [address] [id number] [place] [address] Jun, [facility] [place] [facility] [address] [id number] [place] [address] Jun, [facility] [place] [facility] [address] [id number] [place] [address] Jun, [facility] [place] [facility] [address] [id number] [place] [address] 02 Jun, 2011 [facility] [address] [id number] [place] [address] 29 May, 2011 [facility] [address] [id number] [place] [address] May, [facility] [address] [id number] [place] [address] May, [facility] [address] [id number] [place] [address] May, [facility] [address] [id number] [place] [address] May, [facility] [address] [id number] [place] [address] 30 Apr, 2011 [facility] [address] [id number] [place] [address] 14 Apr, 2011 [facility] [address] [id number] [place] [address] 31 Mar, 2011 [facility] [address] [id number] [place] [address] 15 Feb, 2011 [facility] [address] [id number] [place] [address] 12 Feb, 2011 [facility] [address] [id number] [place] [address] May, [facility] [address] [id number] [place] [address] 23 Apr, 2010 [facility] [place] [facility] [address] [id number] [place] [address] 15 Apr, 2010 [facility] [place] [facility] [address] [id number] [place] [address] 15 Apr, 2010 [facility] [address] [id number] [place] [address] Apr, [facility] [address] [facility] [address] [facility] [id number], [place] [address] Apr, [facility] [address] [facility] [id number], [place] [address] Apr, [facility] [address] [facility] [id number], [place] [address] Mar, [facility] [address] [facility] [id number], [place] [address] Mar, [facility] [address] [facility] [id number], [place] [address] Sep, IMMUNIZATIONS No Known Immunizations SOCIAL HISTORY Never Assessed REASON FOR VISIT Routine visit PLAN OF CARE Activity Details Follow Up prn Reason: VITAL SIGNS MEDICATIONS Medication Instructions Dosage Frequency Start Date End Date Duration Status Quetiapine Fumarate 100 mg Orally Once a day at hs after tapering up with the 50mg tab to 200mg 2 tablet Jan, 30 day(s) Active Tylenol 325 MG Orally every 4 hrs 2 tablets as needed 4h Aug, Active Lisinopril 10 mg Orally Once a day 1 tablet 24h 30 days Active Trihexyphenidyl HCl 2 MG Orally TID 0.5 tablet 8h Jul, Active Colace 100 MG Orally bid 1 capsule 12h Active Prozac 20mg orally daily 1 tab 24h Active Pantoprazole Sodium 40 mg Orally Once a day 1 tablet 24h 30 days Active Eliquis 5 mg Orally 2 times a day 1 tablet 12h Aug, 30 days Active Simvastatin 10 MG Orally Once a day 1 tablet in the evening 24h Active Abilify 10 MG Orally Once a day 1 tablet 24h Active Norvasc 5 MG Orally Once a day 1 tablet 24h Active Lactulose 20 GM/30ML Orally bid 1 packet 12h Active RESULTS No Results PROCEDURES Procedure Date Ordered Result Body Site Minor complication (15 mins) Jan 21, 2018 INSTRUCTIONS MEDICATIONS ADMINISTERED No Known Medications [...] attempts Hospitalization History Ischemic colitis, dementia, generalized debility-[facility] 07/30/17
--- OUTSIDE RECORDS SUMMARY | 2018-06-23 23:12 | XMS REPORT ---
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 Name Role Phone KJ WAGNER Unavailable Unavailable PROBLEMS Type Condition ICD9-CM Code BRC40-MH Code Onset Dates Condition Status SNOMED Code Problem Mood disorder F39 Active 63558460 Problem Dementia F03.90 Active 77145075 Problem Hypertension, benign I10 Active 62885979 Problem Cognitive dysfunction F09 Active 273110390 Problem 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 063548354 Problem Anxiety disorder, unspecified F41.9 Active 556999198 Problem Major depression F32.9 Active 073039414 ALLERGIES Substance Reaction Event Type Date Status Stadol hives Drug Allergy Jan, Active Morphine Sulfate hives Drug Allergy Jan, Active Iodinated Contrast Media - Iv Dye Unknown Non Drug Allergy Jan, Active ENCOUNTERS Encounter Location Date Diagnosis [facility] [id number] [place] [address] 48755- 5603 Mar, [facility] [id number] [place] [address] 10904- 1733 Jan, Mood disorder F39 and Dementia associated with other underlying disease without behavioral disturbance F02.80 [facility] [id number] [id number] Jan, Dental examination Z01.20 [facility] [address] [place] [address] Jan, Dementia F03.90 ; Mood disorder F39 ; Cognitive dysfunction F09 ; Hypertension, benign I10 ; Hypokalemia E87.6 and History of DVT of lower extremity Z86.718 [facility] [id number] [place] [address] 06822- 6354 Jan, Anxiety disorder, unspecified F41.9 and Mood disorder F39 [place] [address] [address] Jan, Mood disorder F39 and Dementia associated with other underlying disease without behavioral disturbance F02.80 [place] [id number] [place] [address] 25928- 5151 Dec, Mood disorder F39 [place] [id number] [place] [address] 70120- 8000 Dec, Mood disorder F39 [place] [id number] [place] [address] 96956- 5032 Nov, [place] [id number] [place] [address] 71770- 9708 Nov, Dementia without behavioral disturbance, unspecified dementia type F03.90 ; Cognitive dysfunction F09 and Major depression F32.9 [facility] [address] [place] [address] October, Encounter for examination for admission to snf Z02.2 ; Tardive dyskinesia G24.01 ; Major depression F32.9 ; Anxiety disorder, unspecified F41.9 ; Cognitive dysfunction F09 and Dementia without behavioral disturbance, unspecified dementia type F03.90 [place] [address] [place] [address] 92432- 5281 October, [place] [address] [place] [address] 54825- 8776 October, [place] [id number] [place] [address] 59282- 2703 Sep, Acute deep vein thrombosis (DVT) of proximal vein of left lower extremity I82.4Y2 [place] [id number] [place] [address] 35851- 2748 Sep, Mood disorder F39 and Dementia associated with other underlying disease without behavioral disturbance F02.80 [place] [address] [address] 3[address] Sep, Mood disorder F39 and Acute deep vein thrombosis (DVT) of proximal vein of left lower extremity I82.4Y2 [facility] [address] [facility] [id number] [address] Sep, [facility] [address] [place] [id number] Sep, History of DVT (deep vein thrombosis) Z86.718 and Dementia F03.90 [facility] [id number] [place] [address] 12457- 5238 Sep, Mood disorder F39 and Dementia without behavioral disturbance, unspecified dementia type F03.90 [facility] [address] [id number] [address] 9607 Aug, [facility] [id number] [place] [address] 52411- 4697 Aug, [facility] [id number] [place] [address] [id number] Aug, [facility] [id number] [place] [address] 30094- 4104 Aug, [facility] [id number] [place] [address] 03443- 7839 Aug, Acute deep vein thrombosis (DVT) of proximal vein of left lower extremity I82.4Y2 [facility] [address] [place] [id number] Aug, Left leg swelling M79.89 [facility] [address] [facility] [id number] [place] [address] 91095- 4405 Aug, Mood disorder F39 and Dementia without behavioral disturbance, unspecified dementia type F03.90 [facility] [address] [id number] [address] 5080 Jul, [facility] [id number] [place] [address] [id number]- 7333 Jul, Dementia without behavioral disturbance, unspecified dementia type F03.90 and Mood disorder F39 [facility] [address] [place] [id number] Jul, Encounter for examination for admission to snf Z02.2 ; Rectal bleed K62.5 ; Dementia without behavioral disturbance, unspecified dementia type F03.90 ; Hypertension, benign I10 ; Edema R60.9 and Major depression F32.9 [facility] [id number] [place] [address] [id number] Jul, [facility] [address] 20596- 0609 Apr, Dementia without behavioral disturbance, unspecified dementia type F03.90 and Mood disorder F39 [place] [id number] [place] [address] 87888- 0006 Apr, [place] [id number] [place] [address] 17241- 2703 Feb, Hypertension, benign I10 [place] [address] 99279- 9636 Dec, Major depression F32.9 ; Anxiety disorder, unspecified F41.9 ; Cognitive dysfunction F09 and Dementia without behavioral disturbance, unspecified dementia type F03.90 [facility] [id number] [place] [address] 27905- 1925 October, Hypertension, benign I10 [facility] [id number] [place] [address] 78838- 4530 Sep, Major depression F32.9 ; Anxiety disorder, unspecified F41.9 and Cognitive dysfunction F09 [facility] [id number] [place] [address] 95010- 9718 Apr, Major depression F32.9 and Cognitive dysfunction F09 [place] [id number] [place] [address] 00892- 3256 Jan, Anxiety disorder, unspecified F41.9 ; Major depression F32.9 and Cognitive dysfunction F09 [facility] [id number] [place] [address] 99088- 7804 Jan, [place] [address] [address] 2436 Dec, [place] [id number] [place] [address] 84149- 2051 Dec, [place] [id number] [place] [address] 17329- 2357 Nov, Anxiety disorder, unspecified F41.9 ; Major depression F32.9 and Cognitive dysfunction F09 [place] [id number] [place] [address] 33372- 2106 October, Dementia without behavioral disturbance, unspecified dementia type F03.90 [place] [id number] [place] [address] 46511- 4942 Sep, Cognitive dysfunction F09 and Edema R60.9 [place] [id number] [place] [address] 99195- 5488 Sep, Cognitive dysfunction F09 and Edema R60.9 [place] [id number] [place] [address] 21611- 9247 Aug, Self-care deficit for medication administration R41.89 ; Self-care deficit in patient living alone R46.89 and Cognitive dysfunction F09 [place] [address] [address]- 6986 Aug, 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 and Unspecified intracranial injury without loss of consciousness, sequela S06.9X0S [place] [address] [address]- 1063 Jul, [place] [id number] [place] [address] 89680- 9076 Jun, Anxiety disorder, unspecified F41.9 and Major depression F32.9 [place] [address] [address]- 6485 Jun, [place] [id number] [place] [address] 95363- 1724 May, [facility] [address] [address]- 2482 May, Nausea R11.0 [facility] [id number] [place] [address] 282749- 4669 Apr, [facility] [id number] [place] [address] 64889- 9856 Mar, Major depression F32.9 [facility] [id number] [place] [address] 198042- 4027 Mar, Encounter for immunization Z23 [facility] [id number] [place] [address] 88350- 1148 Mar, Major depression F32.9 and Anxiety disorder, unspecified F41.9 [facility] [id number] [place] [address] 97130- 4412 Dec, Major depression, chronic 296.20 and Anxiety disorder, unspecified 300.00 [facility] [id number] [place] [address] 81922- 2978 October, Hypertension 401.9 [facility] [id number] [place] [address] 34209- 3718 Sep, [facility] [address] [place] [address] 91042- 6583 Sep, [facility] [id number] [place] [address] 35602- 0443 Jul, [facility] [address] [place] [address] 47297- 8047 Jul, [facility] [id number] [place] [address] 344454- 6916 Jul, [facility] [address] [place] [address] 853423- 4411 May, [facility] [id number] [place] [address], [place] [address]- 1121 May, [facility] [place] [facility] [address] [id number] [place] [address]- 4538 May, [facility] [place] [facility] [address] [id number] [place] [address]- 2202 May, [facility] [place] [facility] [address] [id number] [place] [address]- 9680 Apr, [facility] [place] [facility] [address] [id number] [place] [address]- 2717 Apr, [facility] [place] [facility] [address] [id number] [place] [address]- 9249 Feb, [facility] [place] [facility] [address] [id number] [place] [address]- 4239 Feb, [facility] [place] [facility] [address] [id number] [place] [address]- 0599 Jan, [facility] [place] [facility] [address] [id number] [place] [address]- 1632 Jan, [facility] [place] [facility] [address] [id number] [place] [address]- 3104 Jan, [facility] [place] [facility] [address] [facility] [id number] [place] [address]- 9140 Jan, [facility] [place] [facility] [address] [id number] [place] [address]- 7017 Dec, [facility] [place] [facility] [address] [id number] [place] [address]- 6339 Dec, [facility] [place] [facility] [address] [id number] [place] [address]- 4894 Nov, [facility] [place] [facility] [address] [id number] [place] [address]- 6986 Nov, [facility] [place] [facility] [address] [id number] [place] [address]- 8449 Nov, [facility] [place] [facility] [address] [id number] [place] [address]- 7512 Nov, [facility] [place] [facility] [address] [id number] [place] [address]- 0372 October, [facility] [place] [facility] [address] [id number] [place] [address]- 4283 October, [facility] [place] [facility] [address] [id number] [place] [address]- 3668 Sep, [facility] [place] [facility] [address] [id number] [place] [address]- 7673 Sep, [facility] [place] [facility] [address] [id number] [place] [address]- 9119 Sep, [facility] [place] [facility] [address] [id number] [place] [address]- 4752 Sep, [facility] [place] [facility] [address] [id number] [place] [address]- 9080 Sep, [facility] [place] [facility] [address] [id number] [place] [address]- 4148 Sep, [facility] [place] [facility] [address] [id number] [place] [address]- 6543 Aug, [facility] [place] [facility] [address] [id number] [place] [address]- 2000 Aug, [facility] [place] [facility] [address] [id number] [place] [address]- 5620 Jul, [facility] [place] [facility] [address] [id number] [place] [address]- 4835 Jul, [facility] [place] [facility] [address] [id number] [place] [address]- 4387 May, [facility] [place] [facility] [address] [id number] [place] [address]- 6648 May, [facility] [place] [facility] [address] [id number] [place] [address]- 2546 May, [facility] [place] [facility] [address] [id number] [place] [address]- 9748 May, [facility] [place] [facility] [address] [id number] [place] [address]- 8246 May, [facility] [place] [facility] [address] [id number] [place] [address]- 3606 May, [facility] [place] [facility] [address] [id number] [place] [address]- 4240 Apr, [facility] [place] [facility] [address] [id number] [place] [address]- 4120 Apr, [facility] [place] [facility] [address] [id number] [place] [address]- 1116 Apr, [facility] [place] [facility] [address] [id number] [place] [address]- 6221 Apr, [facility] [place] [facility] [address] [id number] [place] [address]- 6122 Apr, [facility] [place] [facility] [address] [id number] [place] [address]- 6784 Apr, [facility] [place] [facility] [address] [id number] [place] [address]- 3421 Feb, [facility] [place] [facility] [address] [id number] [place] [address]- 5157 Feb, [facility] [place] [facility] [address] [id number] [place] [address]- 3984 18 Feb, 2013 [facility] [place] [facility] [address] [id number] [place] [address]- 2456 Feb, [facility] [place] [facility] [address] [id number] [place] [address]- 4471 Jan, [facility] [place] [facility] [address] [id number] [place] 8683 Dec, [facility] [place] [facility] [address] [id number] [place] [address]- 1026 Dec, [facility] [address] [id number] [place] [address]- 6524 Dec, [facility] [address] [id number] [place] [address]- 2546 Dec, [facility] [address] [id number] [place] [address]- 3079 Nov, [facility] [address] [id number] [place] [address]- 2546 Nov, [facility] [address] [id number] [place] [address]- 5651 October, [facility] [address] [id number] [place] [address]- 5856 October, [facility] [address] [id number] [place] [address]- 4377 October, [facility] [address] [id number] [place] [address]- 2945 October, [facility] [address] [id number] [place] [address]- 9524 Sep, [facility] [address] [id number] [place] [address]- 0256 Aug, [facility] [address] [id number] [place] [address]- 2546 Aug, [facility] [address] [id number] [place] [address]- 2546 15 Aug, 2012 [facility] [address] [id number] [place] [address]- 2546 06 Aug, 2012 [facility] [address] [id number] [place] [address]- 2546 Jul, [facility] [address] [id number] [place] [address]- 2517 Jul, [facility] [place] [facility] [address] [id number] [place] [address]- 6607 Jul, [facility] [place] [facility] [address] [id number] [place] [address]- 6428 Jun, [facility] [place] [facility] [address] [id number] [place] [address]- 4168 Jun, [facility] [place] [facility] [address] [id number] [place] [address]- 1557 May, [facility] [place] [facility] [address] [id number] [place] [address]- 3641 May, [facility] [place] [facility] [address] [id number] [place] [address]- 5875 Apr, [facility] [place] [facility] [address] [facility] [id number] [place] [address]- 5537 Apr, [facility] [place] [facility] [address] [id number], [place] [address]- 1332 Apr, [facility] [place] [facility] [address] [id number] [place] [address]- 7153 Apr, [facility] [place] [facility] [address] [facility] [id number], [place] [address]- 9946 Apr, [facility] [place] [facility] [address] [id number], [place] [address]- 5673 Apr, [facility] [place] [facility] [address] [id number], [place] [address]- 9104 Mar, [facility] [place] [facility] [address] [id number] [place] [address]- 0868 Mar, [facility] [place] [facility] [address] [id number], [place] [address]- 2870 Mar, [facility] [place] [facility] [address] [id number], [place] [address]- 4273 Mar, [facility] [place] [facility] [address] [id number] [place] [address]- 2683 Mar, [facility] [place] [facility] [address] [id number] [place] [address]- 8899 Mar, [facility] [place] [facility] [address] [id number] [place] [address]- 1976 Mar, [facility] [place] [facility] [address] [id number] [place] [address]- 7331 Feb, [facility] [place] [facility] [address] [id number] [place] [address]- 5476 04 Feb, 2012 [facility] [place] [facility] [address] [id number] [place] [address]- 2708 Jan, [facility] [place] [facility] [address] [id number] [place] [address]- 7253 Dec, [facility] [place] [facility] [address] [id number] [place] [address]- 7066 Dec, [facility] [place] [facility] [address] [id number] [place] [address]- 4016 Nov, [facility] [place] [facility] [address] [id number] [place] [address]- 2674 Nov, [facility] [place] [facility] [address] [id number] [place] [address]- 2207 Nov, [facility] [place] [facility] [address] [id number] [place] [address]- 3245 October, [facility] [place] [facility] [address] [id number] [place] [address]- 2967 Sep, [facility] [place] [facility] [address] [id number] [place] [address]- 9373 16 Sep, 2011 [facility] [place] [facility] [address] [id number] [place] [address]- 6135 Sep, [facility] [place] [facility] [address] [id number] [place] [address]- 8236 Aug, [facility] [place] [facility] [address] [id number] [place] [address]- 8256 21 Aug, 2011 [facility] [place] [facility] [address] [id number] [place] [address]- 8156 20 Aug, 2011 [facility] [place] [facility] [address] [id number] [place] [address] 2546 15 Aug, 2011 [facility] [place] [facility] [address] [id number] [place] [address]- 8506 14 Aug, 2011 [facility] [place] [facility] [address] [id number] [place] [address]- 6609 12 Aug, 2011 [facility] [place] [facility] [address] [id number] [place] [address]- 5566 08 Aug, 2011 [facility] [place] [facility] [address] [id number] [place] [address]- 9637 05 Aug, 2011 [facility] [place] [facility] [address] [id number] [place] [address]- 7575 27 Jul, 2011 [facility] [place] [facility] [address] [id number] [place] [address]- 2838 Jul, [facility] [place] [facility] [address] [id number] [place] [address]- 4058 Jul, [facility] [place] [facility] [address] [id number] [place] [address]- 9331 15 Jul, 2011 [facility] [place] [facility] [address] [id number] [place] [address]- 6796 Jul, [facility] [place] [facility] [address] [id number] [place] [address] 2546 Jul, [facility] [place] [facility] [address] [id number] [place] [address] Jun, [facility] [place] [facility] [address] [id number] [place] [address] Jun, [facility] [place] [facility] [address] [id number] [place] [address] 10 Jun, 2011 [facility] [address] [id number] [place] [address] Jun, [facility] [place] [facility] [address] [id number] [place] [address] 29 May, 2011 [facility] [address] [id number] [place] [address] May, [facility] [place] [facility] [address] [id number] [place] [address] May, [facility] [address] [id number] [place] [address] May, [facility] [place] [facility] [address] [id number] [place] [address] May, [facility] [address] [id number] [place] [address] 30 Apr, 2011 [facility] [place] [facility] [address] [id number] [place] [address] 14 Apr, 2011 [facility] [address] [id number] [place] [address] 31 Mar, 2011 [facility] [place] [facility] [address] [id number] [place] [address] 15 Feb, 2011 [facility] [place] [facility] [address] [id number] [place] [address] 12 Feb, 2011 [facility] [place] [facility] [address] [id number], [place] [address] May, [facility] [place] [facility] [address] [id number] [place] [address] 23 Apr, 2010 [facility] [place] [facility] [address] [id number] [place] [address] 15 Apr, 2010 [facility] [place] [facility] [address] [id number] [place] [address] 15 Apr, 2010 [facility] [place] [facility] [address] [facility] [id number], [place] [address] Apr, [facility] [address] [facility] [id number] [address] [address] Apr, [facility] [address] [facility] [id number], [place] [address] Apr, [facility] [address] [facility] [id number][place] [address] Mar, [facility] [address] [facility] [id number][place] [address] Mar, [facility] [address] [facility] [id number][place] [id number] Sep, IMMUNIZATIONS No Known Immunizations SOCIAL HISTORY Never Assessed REASON FOR VISIT ADULT OUTREACH [facility] [address] PLAN OF CARE Activity Details Follow Up prn Reason:recall VITAL SIGNS MEDICATIONS Medication Instructions Dosage Frequency Start Date End Date Duration Status Norvasc 5 MG Orally Once a day 1 tablet 24h Active Lactulose 20 GM/30ML Orally bid 1 packet 12h Active Abilify 10 MG Orally Once a day 1 tablet 24h Active Eliquis 5 mg Orally 2 times a day 1 tablet 12h Aug, 30 days Active Pantoprazole Sodium 40 mg Orally Once a day 1 tablet 24h 30 days Active Colace 100 MG Orally bid 1 capsule 12h Active Simvastatin 10 MG Orally Once a day 1 tablet in the evening 24h Active Quetiapine Fumarate 100 mg Orally Once a day at hs after tapering up with the 50mg tab to 200mg 2 tablet Jan, 30 day(s) Active Trihexyphenidyl HCl 2 MG Orally TID 0.5 tablet 8h Jul, Active Prozac 20mg orally daily 1 tab 24h Active Tylenol 325 MG Orally every 4 hrs 2 tablets as needed 4h Aug, Active Lisinopril 10 mg Orally Once a day 1 tablet 24h 30 days Active RESULTS No Results PROCEDURES Procedure Date Ordered Result Body Site PROPHYLAXIS - ADULT Jan 28, 2018 TOPICAL FLUORIDE VARNISH Jan 28, 2018 Billing Notes on claim Jan 28, 2018 INSTRUCTIONS MEDICATIONS ADMINISTERED No Known Medications [...] attempts Hospitalization History Ischemic colitis, dementia, generalized debility-[facility] 07/30/17
--- OUTSIDE RECORDS SUMMARY | 2018-06-23 23:13 | XMS REPORT ---
Author Author GRACE WHIT [facility] Address [address] [place] [address] Care Team Providers Care Out Patient Therapist Name Role Phone SAADBRYCE WHIT Unavailable PROBLEMS Type Condition ICD9-CM Code BPR12-GN Code Onset Dates Condition Status SNOMED Code Problem Mood disorder F39 Active 55947163 Problem Dementia F03.90 Active 93983877 Problem Hypertension, benign I10 Active 03714125 Problem Cognitive dysfunction F09 Active 795425890 Problem 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 602195081 Problem Anxiety disorder, unspecified F41.9 Active 277164843 Problem Major depression F32.9 Active [id number] ALLERGIES No Information ENCOUNTERS Encounter Location Date Diagnosis [facility] [id number] [place] [address] 66086- 6798 Mar, [facility] [id number] [place] [address] 47371- 8145 Jan, Mood disorder F39 and Dementia associated with other underlying disease without behavioral disturbance F02.80 [facility] [id number] [place] [id number] Jan, Dental examination Z01.20 [facility] [address] [place] [address] Jan, Dementia F03.90 ; Mood disorder F39 ; Cognitive dysfunction F09 ; Hypertension, benign I10 ; Hypokalemia E87.6 and History of DVT of lower extremity Z86.718 [facility] [id number] [place] [address] 07818- 8864 Jan, Anxiety disorder, unspecified F41.9 and Mood disorder F39 [facility] [id number] [place] [address] 69609- 4377 Jan, Mood disorder F39 and Dementia associated with other underlying disease without behavioral disturbance F02.80 [facility] [address] [address] 75[address] Dec, Mood disorder F39 [facility] [address] [address] 4181 Dec, Mood disorder F39 [facility] [id number] [place] [address] 47492- 8561 Nov, [facility] [id number] [place] [address] 72853- 3234 Nov, Dementia without behavioral disturbance, unspecified dementia type F03.90 ; Cognitive dysfunction F09 and Major depression F32.9 [facility] [employer] [facility] [address] [place] [address] October, Encounter for examination for admission to shelter Z02.2 ; Tardive dyskinesia G24.01 ; Major depression F32.9 ; Anxiety disorder, unspecified F41.9 ; Cognitive dysfunction F09 and Dementia without behavioral disturbance, unspecified dementia type F03.90 [facility] [id number] [place] [address] 01325- 9832 October, [facility] [id number] [place] [address] 51589- 4550 October, [facility] [id number] [place] [address] 10535- 1398 Sep, Acute deep vein thrombosis (DVT) of proximal vein of left lower extremity I82.4Y2 [facility] [address], [place] [address] 8538 Sep, Mood disorder F39 and Dementia associated with other underlying disease without behavioral disturbance F02.80 [facility] [address] [address] 4708 Sep, Mood disorder F39 and Acute deep vein thrombosis (DVT) of proximal vein of left lower extremity I82.4Y2 [facility] [id number] [address] 4[address] Sep, [facility] [employer] [address] [place] [id number] Sep, History of DVT (deep vein thrombosis) Z86.718 and Dementia F03.90 [facility] [address], [place] [address] 1757 Sep, Mood disorder F39 and Dementia without behavioral disturbance, unspecified dementia type F03.90 [facility] [address], [place] [address] 6092 Aug, [facility] [id number] [place] [address] 15784- 6261 Aug, [facility] [id number] [id number] Aug, [facility] [id number] [place] [address] 04173- 5788 Aug, [facility] [address], [place] [address] 7217 Aug, Acute deep vein thrombosis (DVT) of proximal vein of left lower extremity I82.4Y2 [facility] [employer] [address] [place] [id number] Aug, Left leg swelling M79.89 [facility] [address], [place] [address] 3457 Aug, Mood disorder F39 and Dementia without behavioral disturbance, unspecified dementia type F03.90 [facility] [address], [place] [address] 9317 Jul, [facility] [id number] [place] [address] 90728- 9792 Jul, Dementia without behavioral disturbance, unspecified dementia type F03.90 and Mood disorder F39 [employer] [address] [place] [id number] Jul, Encounter for examination for admission to shelter Z02.2 ; Rectal bleed K62.5 ; Dementia without behavioral disturbance, unspecified dementia type F03.90 ; Hypertension, benign I10 ; Edema R60.9 and Major depression F32.9 [facility] [id number] [place] [address] [id number] Jul, [facility] [id number] [place] [address] 46594- 9353 Apr, Dementia without behavioral disturbance, unspecified dementia type F03.90 and Mood disorder F39 [facility] [id number] [place] [address] 89273- 4863 Apr, [facility] [id number] [place] [address] 77548- 3647 Feb, Hypertension, benign I10 [facility] [id number] [place] [address] 12262- 1885 Dec, Major depression F32.9 ; Anxiety disorder, unspecified F41.9 ; Cognitive dysfunction F09 and Dementia without behavioral disturbance, unspecified dementia type F03.90 [facility] [id number] [place] [address] 37601- 3242 October, Hypertension, benign I10 [facility] [id number] [place] [address] 95511- 7896 Sep, Major depression F32.9 ; Anxiety disorder, unspecified F41.9 and Cognitive dysfunction F09 [facility] [id number] [place] [address] 06898- 5101 Apr, Major depression F32.9 and Cognitive dysfunction F09 [facility] [id number] [place] [address] 96841- 3958 Jan, Anxiety disorder, unspecified F41.9 ; Major depression F32.9 and Cognitive dysfunction F09 [facility] [id number] [place] [address] 94876- 2306 Jan, [facility] [id number] [place] [address] 17458- 9118 Dec, [facility] [id number] [place] [address] 90971- 4226 Dec, [facility] [id number] [place] [address] 40291- 7342 Nov, Anxiety disorder, unspecified F41.9 ; Major depression F32.9 and Cognitive dysfunction F09 [facility] [id number] [place] [address] 62675- 2864 October, Dementia without behavioral disturbance, unspecified dementia type F03.90 [facility] [id number] [place] [address] 93268- 6148 Sep, Cognitive dysfunction F09 and Edema R60.9 [facility] [id number] [place] [address] 71677- 9838 Sep, Cognitive dysfunction F09 and Edema R60.9 [facility] [id number] [place] [address] 97167- 7276 Aug, Self-care deficit for medication administration R41.89 ; Self-care deficit in patient living alone R46.89 and Cognitive dysfunction F09 [facility] [id number] [place] [address] 50200- 4101 Aug, 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 and Unspecified intracranial injury without loss of consciousness, sequela S06.9X0S [facility] [id number] [place] [address] 48913- 6746 Jul, [facility] [id number] [place] [address] 71292- 5390 Jun, Anxiety disorder, unspecified F41.9 and Major depression F32.9 [facility] [id number] [place] [address] 859732- 9507 Jun, [facility] [id number] [place] [address] 92513- 3145 May, [facility] [address] [place] [address]- 5861 May, Nausea R11.0 [facility] [id number] [place] [address] 60918- 7103 Apr, [facility] [id number] [place] [address] 23232- 1090 Mar, Major depression F32.9 [facility] [id number] [place] [address] 32165- 4569 Mar, Encounter for immunization Z23 [facility] [id number] [place] [address] 22027- 7714 Mar, Major depression F32.9 and Anxiety disorder, unspecified F41.9 [facility] [id number] [place] [address] 60301- 3145 Dec, Major depression, chronic 296.20 and Anxiety disorder, unspecified 300.00 [facility] [id number] [place] [address] 51237- 0649 October, Hypertension 401.9 [facility] [id number] [place] [address] 43713- 6284 Sep, [facility] [id number] [place] [address] 39068- 6738 Sep, [facility] [id number] [place] [address] 00009- 5680 Jul, [facility] [id number] [place] [address] 18779- 6750 Jul, [facility] [id number] [place] [address] 71874- 2457 Jul, [facility] [id number] [place] [address] 91808- 3346 May, [facility] [address] [address]- 1891 May, [facility] [id number] [place] [address]- 8135 May, [facility] [place] [facility] [address] [id number] [place] [address]- 2462 May, [facility] [place] [facility] [address] [id number] [place] [address]- 3807 Apr, [facility] [place] [facility] [address] [id number] [place] [address]- 0272 Apr, [facility] [place] [facility] [address] [id number] [place] [address]- 8251 Feb, [facility] [place] [facility] [address] [id number] [place] [address]- 0755 Feb, [facility] [place] [facility] [address] [id number] [place] [address]- 4159 Jan, [facility] [place] [facility] [address] [id number] [place] [address]- 9858 Jan, [facility] [place] [facility] [address] [id number] [place] [address]- 9361 Jan, [facility] [place] [facility] [address] [id number] [place] [address]- 1306 Jan, [facility] [place] [facility] [address] [id number] [place] [address]- 6733 Dec, [facility] [place] [facility] [address] [id number] [place] [address]- 3915 Dec, [facility] [place] [facility] [address] [id number] [place] [address]- 6820 Nov, [facility] [place] [facility] [address] [id number] [place] [address]- 4093 Nov, [facility] [place] [facility] [address] [id number] [place] [address]- 7793 Nov, [facility] [place] [facility] [address] [id number] [place] [address]- 5186 Nov, [facility] [address] [id number] [place] [address]- 1480 October, [facility] [place] [facility] [address] [id number] [place] [address]- 8961 October, [facility] [place] [facility] [address] [id number] [place] [address]- 0444 Sep, [facility] [place] [facility] [address] [id number] [place] [address]- 6632 Sep, [facility] [place] [facility] [address] [id number] [place] [address]- 3990 Sep, [facility] [place] [facility] [address] [id number] [place] [address]- 2808 Sep, [facility] [place] [facility] [address] [id number] [place] [address]- 4390 Sep, [facility] [place] [facility] [address] [id number] [place] [address]- 7864 Sep, [facility] [place] [facility] [address] [id number] [place] [address]- 8263 Aug, [facility] [place] [facility] [address] [id number] [place] [address]- 9303 Aug, [facility] [place] [facility] [address] [id number] [place] [address]- 0810 Jul, [facility] [place] [facility] [address] [id number] [place] [address]- 8828 Jul, [facility] [place] [facility] [address] [id number] [place] [address]- 6193 May, [facility] [place] [facility] [address] [id number] [place] [address]- 5230 May, [facility] [place] [facility] [address] [id number] [place] 8407 May, [facility] [place] [facility] [address] [id number] [place] [address]- 3410 May, [facility] [address] [id number] [place] [address]- 4008 May, [facility] [address] [id number] [place] [address]- 8367 May, [facility] [address] [id number] [place] [address]- 9828 Apr, [facility] [place] [facility] [address] [id number] [place] 0350 Apr, [facility] [address] [id number] [place] [address]- 7600 Apr, [facility] [place] [facility] [address] [id number] [place] [address]- 3423 Apr, [facility] [address] [id number] [place] [address]- 4865 Apr, [facility] [place] [facility] [address] [id number] [place] [address]- 0726 Apr, [facility] [address] [id number] [place] [address]- 2343 Feb, [facility] [place] [facility] [address] [id number] [place] [address]- 5140 Feb, [facility] [place] [facility] [address] [id number] [place] [address]- 2335 Feb, [facility] [place] [facility] [address] [id number], [place] [address]- 5998 Feb, [facility] [place] [facility] [address] [id number] [place] [address]- 8452 Jan, [facility] [place] [facility] [address] [id number] [place] [address]- 7142 Dec, [facility] [place] [facility] [address] [id number], [place] [address]- 1806 Dec, [facility] [place] [facility] [address] [id number] [place] [address]- 6547 Dec, [facility] [address] [id number] [place] [address]- 7748 Dec, [facility] [place] [facility] [address] [id number] [place] [address]- 6415 Nov, [facility] [place] [facility] [address] [id number] [place] [address]- 6660 Nov, [facility] [place] [facility] [address] [id number] [place] [address]- 1020 October, [facility] [place] [facility] [address] [id number] [place] [address]- 0602 October, [facility] [address] [id number] [place] [address]- 6590 October, [facility] [address] [id number] [place] [address]- 5981 October, [facility] [address] [id number] [place] [address]- 9538 Sep, [facility] [address] [id number] [place] [address]- 3165 Aug, [facility] [address] [id number] [place] [address]- 6923 Aug, [facility] [place] [facility] [address] [id number] [place] [address]- 9889 15 Aug, 2012 [facility] [place] [facility] [address] [id number] [place] [address]- 9380 Aug, [facility] [place] [facility] [address] [id number] [place] [address]- 6206 Jul, [facility] [place] [facility] [address] [id number] [place] [address]- 8846 Jul, [facility] [place] [facility] [address] [id number], [place] [address]- 7560 Jul, [facility] [place] [facility] [address] [id number] [place] [address]- 1029 Jun, [facility] [place] [facility] [address] [id number] [place] 6543 Jun, [facility] [place] [facility] [address] [id number] [place] [address]- 3360 May, [facility] [place] [facility] [address] [id number] [place] [address]- 6337 May, [facility] [place] [facility] [address] [id number] [place] [address]- 2472 Apr, [facility] [place] [facility] [address] [id number] [place] [address]- 9729 Apr, [facility] [place] [facility] [address] [id number] [place] [address]- 8449 Apr, [facility] [place] [facility] [address] [id number] [place] [address]- 7381 Apr, [facility] [place] [facility] [address] [id number] [place] [address]- 6614 Apr, [facility] [place] [facility] [address] [id number] [place] [address]- 4772 Apr, [facility] [place] [facility] [address] [id number], [place] [address]- 0071 Mar, [facility] [place] [facility] [address] [id number], [place] [address]- 9108 Mar, [facility] [place] [facility] [address] [id number] [place] [address]- 0192 Mar, [facility] [place] [facility] [address] [id number] [place] [address]- 4259 Mar, [facility] [place] [facility] [address] [id number] [place] [address]- 8432 Mar, [facility] [place] [facility] [address] [id number] [place] [address]- 5586 Mar, [facility] [address] [id number] [place] [address]- 1103 Mar, [facility] [place] [facility] [address] [id number] [place] [address] 2546 Feb, [facility] [address] [id number] [place] [address]- 1033 Feb, [facility] [place] [facility] [address] [id number] [place] [address]- 7276 Jan, [facility] [address] [id number] [place] [address]- 2049 Dec, [facility] [address] [id number] [place] [address]- 8573 Dec, [facility] [address] [id number] [place] [address]- 5254 Nov, [facility] [address] [id number] [place] [address]- 6961 Nov, [facility] [address] [id number] [place] [address]- 5829 Nov, [facility] [address] [id number] [place] [address]- 1246 October, [facility] [address] [id number] [place] [address]- 4894 Sep, [facility] [address] [id number] [place] [address]- 2020 16 Sep, 2011 [facility] [place] [facility] [address] [id number] [place] [address]- 8584 Sep, [facility] [place] [facility] [address] [id number] [place] [address]- 9566 Aug, [facility] [place] [facility] [address] [id number] [place] [address]- 9526 Aug, [facility] [place] [facility] [address] [id number] [place] [address]- 6015 20 Aug, 2011 [facility] [place] [facility] [address] [id number] [place] 1196 15 Aug, 2011 [facility] [place] [facility] [address] [id number] [place] [address]- 3796 14 Aug, 2011 [facility] [place] [facility] [address] [id number] [place] [address]- 4762 12 Aug, 2011 [facility] [place] [facility] [address] [id number] [place] [address]- 8801 08 Aug, 2011 [facility] [place] [facility] [address] [id number] [place] [address]- 5649 05 Aug, 2011 [facility] [place] [facility] [address] [id number] [place] [address]- 8736 27 Jul, 2011 [facility] [place] [facility] [address] [id number] [place] [address] Jul, [facility] [place] [facility] [address] [id number] [place] [address] Jul, [facility] [place] [facility] [address] [id number] [place] [address] 15 Jul, 2011 [facility] [place] [facility] [address] [id number] [place] [address] Jul, [facility] [place] [facility] [address] [id number] [place] [address] Jul, [facility] [place] [facility] [address] [id number] [place] [address] [address] Jun, [facility] [place] [facility] [address] [id number] [place] [address] Jun, [facility] [place] [facility] [address] [id number] [place] [address] Jun, [facility] [place] [facility] [address] [id number] [place] [address] 02 Jun, 2011 [facility] [address] [id number] [place] [address] 29 May, 2011 [facility] [address] [id number] [place] [address] 28 May, 2011 [facility] [address] [id number] [place] [address] May, [facility] [address] [id number] [place] [address] May, [facility] [address] [id number] [place] [address] May, [facility] [address] [id number] [place] [address] 30 Apr, 2011 [facility] [address] [id number] [place] [address] 14 Apr, 2011 [facility] [address] [id number] [place] [address] 31 Mar, 2011 [facility] [address] [id number] [place] [address] 15 Feb, 2011 [facility] [address] [id number] [place] [address] 12 Feb, 2011 [facility] [address] [id number] [place] [address] May, [facility] [address] [id number] [place] [address] 23 Apr, 2010 [facility] [place] [facility] [address] [id number] [place] [address] 15 Apr, 2010 [facility] [place] [facility] [address] [id number] [place] [address] 15 Apr, 2010 [facility] [address] [id number] [place] [address] Apr, [facility] [address] [facility] [id number], [place] [address] Apr, [facility] [address] [facility] [id number], [place] [address] Apr, [facility] [address] [facility] [id number], [place] [address] Mar, [facility] [address] [facility] [id number], [place] [address] Mar, [facility] [address] [facility] [id number], [place] [address] Sep, IMMUNIZATIONS No Known Immunizations SOCIAL HISTORY Never Assessed REASON FOR VISIT f/u PLAN OF CARE VITAL SIGNS MEDICATIONS Medication Instructions Dosage Frequency Start Date End Date Duration Status Prozac 20mg orally daily 1 tab 24h Active Abilify 10 MG Orally Once a day 1 tablet 24h Active Lactulose 20 GM/30ML Orally bid 1 packet 12h Active Colace 100 MG Orally bid 1 capsule 12h Active Pantoprazole Sodium 40 mg Orally Once a day 1 tablet 24h 30 days Active Seroquel 100 MG Orally Once a day 2 tablet 24h Sep, Active Simvastatin 10 MG Orally Once a day 1 tablet in the evening 24h Active Lisinopril 10 mg Orally Once a day 1 tablet 24h 30 days Active Tylenol 325 MG Orally every 4 hrs 2 tablets as needed 4h Aug, Active Norvasc 5 MG Orally Once a day 1 tablet 24h Active Trihexyphenidyl HCl 2 MG Orally TID 0.5 tablet 8h Jul, Active Eliquis 5 mg Orally 2 times a day 1 tablet 12h 06 Aug, 2017 30 days Active RESULTS No Results PROCEDURES Procedure Date Ordered Result Body Site [facility] ESTABLISHED PATIENT Jan 14, 2018 INSTRUCTIONS MEDICATIONS ADMINISTERED No Known Medications [...] attempts Hospitalization History Ischemic colitis, dementia, generalized debility-[facility] 07/30/17
--- OUTSIDE RECORDS SUMMARY | 2018-06-23 23:14 | XMS REPORT ---
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 Name Role Phone CARO CAMARA Unavailable PROBLEMS Type Condition ICD9-CM Code AUS26-AV Code Onset Dates Condition Status SNOMED Code Problem Mood disorder F39 Active 91441530 Problem Dementia F03.90 Active 82942564 Problem Hypertension, benign I10 Active 12661791 Problem Cognitive dysfunction F09 Active 752857656 Problem 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 986998614 Problem Anxiety disorder, unspecified F41.9 Active 039359608 Problem Major depression F32.9 Active 516761478 ALLERGIES No Information ENCOUNTERS Encounter Location Date Diagnosis [place] [id number] [place] [address] 25832- 7299 Mar, [facility] [id number] [place] [address] 77663- 1454 Jan, Mood disorder F39 and Dementia associated with other underlying disease without behavioral disturbance F02.80 [facility] [id number] [place] [address] [id number] Jan, Dental examination Z01.20 [facility] [address] [place] [address] Jan, Dementia F03.90 ; Mood disorder F39 ; Cognitive dysfunction F09 ; Hypertension, benign I10 ; Hypokalemia E87.6 and History of DVT of lower extremity Z86.718 [facility] [id number] [place] [address] 20416- 9387 Jan, Anxiety disorder, unspecified F41.9 and Mood disorder F39 [facility] [id number] [place] [address] 01079- 3873 Jan, Mood disorder F39 and Dementia associated with other underlying disease without behavioral disturbance F02.80 [facility] [address] [address] 00[address] Dec, Mood disorder F39 [facility] [address] [address] 7561 Dec, Mood disorder F39 [facility] [id number] [place] [address] 49113- 4411 Nov, [facility] [id number] [place] [address] 72171- 4583 Nov, Dementia without behavioral disturbance, unspecified dementia type F03.90 ; Cognitive dysfunction F09 and Major depression F32.9 [facility] [address] [place] [address] October, Encounter for examination for admission to [facility] Z02.2 ; Tardive dyskinesia G24.01 ; Major depression F32.9 ; Anxiety disorder, unspecified F41.9 ; Cognitive dysfunction F09 and Dementia without behavioral disturbance, unspecified dementia type F03.90 [place] [address] [place] [address] 83559- 6229 October, [facility] [id number] [place] [address] 73980- 8886 October, [facility] [address] [place] [address] 04550- 6439 Sep, Acute deep vein thrombosis (DVT) of proximal vein of left lower extremity I82.4Y2 [facility] [address] [address] 3898 Sep, Mood disorder F39 and Dementia associated with other underlying disease without behavioral disturbance F02.80 [facility] [address] [address] 6388 Sep, Mood disorder F39 and Acute deep vein thrombosis (DVT) of proximal vein of left lower extremity I82.4Y2 [facility] [id number] [place] [address] 240[address] Sep, [facility] [employer] [address] [place] [id number] Sep, History of DVT (deep vein thrombosis) Z86.718 and Dementia F03.90 [facility] [address] [address] 3[address] Sep, Mood disorder F39 and Dementia without behavioral disturbance, unspecified dementia type F03.90 [facility] [address] [facility] [id number] [address] Aug, [place] [id number] [place] [address] 28398- 2210 Aug, [facility] [id number] [id number] Aug, [facility] [address] [address] 2668 Aug, [facility] [address] [address] 3485 Aug, Acute deep vein thrombosis (DVT) of proximal vein of left lower extremity I82.4Y2 [facility] [employer] [address] [place] [id number] Aug, Left leg swelling M79.89 [facility] [address] [address] 7371 Aug, Mood disorder F39 and Dementia without behavioral disturbance, unspecified dementia type F03.90 [facility] [id number] [address] 9067 Jul, [facility] [address] [address] 2082 Jul, Dementia without behavioral disturbance, unspecified dementia type F03.90 and Mood disorder F39 [facility] [employer] [address] [place] [id number] Jul, Encounter for examination for admission to [facility] Z02.2 ; Rectal bleed K62.5 ; Dementia without behavioral disturbance, unspecified dementia type F03.90 ; Hypertension, benign I10 ; Edema R60.9 and Major depression F32.9 [facility] [id number] [place] [address] [id number] Jul, [facility] [id number] [place] [address] [id number]- 2820 Apr, Dementia without behavioral disturbance, unspecified dementia type F03.90 and Mood disorder F39 [facility] [id number] [place] [address] 43499- 0380 Apr, [facility] [id number] [place] [address] 72193- 4482 Feb, Hypertension, benign I10 [facility] [id number] [place] [address] 30584- 7179 Dec, Major depression F32.9 ; Anxiety disorder, unspecified F41.9 ; Cognitive dysfunction F09 and Dementia without behavioral disturbance, unspecified dementia type F03.90 [facility] [address] [address] 5150 October, Hypertension, benign I10 [facility] [address] [place] [address] 64603- 6744 Sep, Major depression F32.9 ; Anxiety disorder, unspecified F41.9 and Cognitive dysfunction F09 [facility] [address] [place] [address] 98492- 3096 Apr, Major depression F32.9 and Cognitive dysfunction F09 [facility] [address] [place] [address] 21501- 9405 Jan, Anxiety disorder, unspecified F41.9 ; Major depression F32.9 and Cognitive dysfunction F09 [facility] [address] [place] [address] 67821- 0760 Jan, [facility] [id number] [place] [address] 63217- 0113 Dec, [place] [address] [address]- 2588 Dec, [place] [id number] [place] [address] 25980- 1112 Nov, Anxiety disorder, unspecified F41.9 ; Major depression F32.9 and Cognitive dysfunction F09 [place] [id number] [place] [address] 31541- 5802 October, Dementia without behavioral disturbance, unspecified dementia type F03.90 [place] [id number] [place] [address] 30649- 1917 Sep, Cognitive dysfunction F09 and Edema R60.9 [place] [id number] [place] [address] 00461- 7133 Sep, Cognitive dysfunction F09 and Edema R60.9 [place] [id number] [place] [address] 33346- 4328 Aug, Self-care deficit for medication administration R41.89 ; Self-care deficit in patient living alone R46.89 and Cognitive dysfunction F09 [place] [address] [place] [address] 68026- 4965 Aug, 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 and Unspecified intracranial injury without loss of consciousness, sequela S06.9X0S [place] [address] [address]- 5687 Jul, [place] [address] [place] [address] 79414- 3739 Jun, Anxiety disorder, unspecified F41.9 and Major depression F32.9 [place] [address] [place] [address] 912603- 5014 Jun, [place] [address] [address]- 9958 May, [place] [id number] [address]- 0079 May, Nausea R11.0 [facility] [id number] [place] [address] 28560- 1688 Apr, [facility] [id number] [place] [address] 40330- 6753 Mar, Major depression F32.9 [facility] [id number] [place] [address] 71317- 4348 Mar, Encounter for immunization Z23 [facility] [id number] [place] [address] 59716- 6898 Mar, Major depression F32.9 and Anxiety disorder, unspecified F41.9 [facility] [id number] [place] [address] 29400- 9121 Dec, Major depression, chronic 296.20 and Anxiety disorder, unspecified 300.00 [facility] [id number] [place] [address] 99837- 4197 October, Hypertension 401.9 [facility] [id number] [place] [address] 77872- 8486 Sep, [facility] [id number] [place] [address] 15363- 3370 Sep, [facility] [address] [address]- 0385 Jul, [facility] [id number] [place] [address] 24836- 8853 Jul, [facility] [address] [place] [address] 32906- 4734 Jul, [facility] [address] [place] [address] 454222- 6457 May, [facility] [address] [address]- 1591 May, [facility] [id number] [place] [address]- 9557 May, [facility] [place] [facility] [address] [id number] [place] [address]- 2792 May, [facility] [place] [facility] [address] [id number] [place] [address]- 2452 Apr, [facility] [place] [facility] [address] [id number] [place] [address]- 1042 Apr, [facility] [place] [facility] [address] [id number] [place] [address]- 6245 Feb, [facility] [place] [facility] [address] [id number] [place] [address]- 0986 Feb, [facility] [place] [facility] [address] [id number] [place] [address]- 6680 Jan, [facility] [place] [facility] [address] [id number] [place] [address]- 9764 Jan, [facility] [place] [facility] [address] [id number] [place] [address]- 2207 Jan, [facility] [place] [facility] [address] [id number] [place] [address]- 9472 Jan, [facility] [place] [facility] [address] [id number] [place] [address]- 7738 Dec, [facility] [place] [facility] [address] [id number] [place] [address]- 7460 Dec, [facility] [place] [facility] [address] [id number] [place] [address]- 5489 Nov, [facility] [place] [facility] [address] [id number] [place] [address]- 0577 Nov, [facility] [place] [facility] [address] [id number] [place] [address]- 7336 Nov, [facility] [place] [facility] [address] [id number] [place] [address]- 0728 Nov, [facility] [place] [facility] [address] [id number] [place] [address]- 1403 October, [facility] [place] [facility] [address] [id number] [place] [address]- 4287 October, [facility] [place] [facility] [address] [id number] [place] [address]- 8433 Sep, [facility] [place] [facility] [address] [id number] [place] [address]- 8306 Sep, [facility] [place] [facility] [address] [id number] [place] [address]- 0723 Sep, [facility] [place] [facility] [address] [id number] [place] [address]- 9378 Sep, [facility] [place] [facility] [address] [id number] [place] [address]- 7890 Sep, [facility] [place] [facility] [address] [id number] [place] [address]- 4869 Sep, [facility] [place] [facility] [address] [id number] [place] [address]- 5848 Aug, [facility] [place] [facility] [address] [id number] [place] [address]- 4759 Aug, [facility] [place] [facility] [address] [id number] [place] [address]- 2622 Jul, [facility] [place] [facility] [address] [id number] [place] [address]- 2672 Jul, [facility] [place] [facility] [address] [id number] [place] [address]- 3276 May, [facility] [place] [facility] [address] [id number] [place] [address]- 9325 May, [facility] [place] [facility] [address] [id number] [place] [address]- 5766 May, [facility] [place] [facility] [address] [id number] [place] [address]- 1852 May, [facility] [address] [id number] [place] [address]- 5803 May, [facility] [place] [facility] [address] [id number] [place] [address]- 6627 May, [facility] [address] [id number] [place] [address]- 5695 Apr, [facility] [place] [facility] [address] [id number] [place] [address]- 7944 Apr, [facility] [address] [id number] [place] [address]- 0856 Apr, [facility] [place] [facility] [address] [id number] [place] [address]- 0715 Apr, [facility] [address] [id number] [place] [address]- 8184 Apr, [facility] [place] [facility] [address] [id number] [place] [address]- 7401 Apr, [facility] [place] [facility] [address] [id number] [place] [address]- 1706 Feb, [facility] [place] [facility] [address] [id number] [place] [address]- 1875 Feb, [facility] [place] [facility] [address] [id number] [place] [address]- 1852 18 Feb, 2013 [facility] [place] [facility] [address] [id number] [place] [address]- 2545 Feb, [facility] [place] [facility] [address] [id number] [place] [address]- 9256 Jan, [facility] [place] [facility] [address] [id number] [place] [address]- 1711 Dec, [facility] [place] [facility] [address] [id number] [place] [address]- 4568 Dec, [facility] [place] [facility] [address] [id number] [place] [address]- 0251 Dec, [facility] [address] [id number] [place] [address]- 1883 Dec, [facility] [address] [id number] [place] [address]- 4232 Nov, [facility] [address] [id number] [place] [address] 2546 Nov, [facility] [address] [id number] [place] [address]- 9151 October, [facility] [address] [id number] [place] [address]- 1356 October, [facility] [address] [id number] [place] [address]- 7413 October, [facility] [address] [id number] [place] [address]- 1577 October, [facility] [address] [id number] [place] [address]- 2592 Sep, [facility] [address] [id number] [place] [address]- 9910 Aug, [facility] [address] [id number] [place] [address]- 0875 Aug, [facility] [place] [facility] [address] [id number] [place] [address]- 1356 15 Aug, 2012 [facility] [place] [facility] [address] [id number] [place] [address]- 9730 Aug, [facility] [place] [facility] [address] [id number] [place] [address]- 2366 Jul, [facility] [place] [facility] [address] [id number] [place] [address]- 2546 Jul, [facility] [place] [facility] [address] [id number] [place] [address]- 1716 Jul, [facility] [place] [facility] [address] [id number] [place] [address]- 3376 Jun, [facility] [place] [facility] [address] [id number] [place] [address]- 9562 Jun, [facility] [place] [facility] [address] [facility] [id number] [place] [address]- 9059 May, [facility] [place] [facility] [address] [id number] [place] [address]- 4314 May, [facility] [place] [facility] [address] [id number] [place] [address]- 6393 Apr, [facility] [place] [facility] [address] [id number] [place] [address]- 1234 Apr, [facility] [place] [facility] [address] [facility] [id number] [place] [address]- 6909 Apr, [facility] [place] [facility] [address] [id number] [place] [address]- 7304 Apr, [facility] [place] [facility] [address] [id number] [place] [address]- 0034 Apr, [facility] [place] [facility] [address] [facility] [id number] [place] [address]- 0120 Apr, [facility] [place] [facility] [address] [id number] [place] [address]- 8005 Mar, [facility] [place] [facility] [address] [id number] [place] [address]- 6886 Mar, [facility] [place] [facility] [address] [id number] [place] [address]- 1328 Mar, [facility] [place] [facility] [address] [id number] [place] [address]- 6554 Mar, [facility] [place] [facility] [address] [facility] [id number] [place] [address]- 1621 Mar, [facility] [place] [facility] [address] [id number] [place] [address]- 2981 Mar, [facility] [place] [facility] [address] [id number] [place] [address]- 7144 Mar, [facility] [place] [facility] [address] [id number] [place] [address] 2546 Feb, [facility] [place] [facility] [address] [id number] [place] [address] 2546 Feb, [facility] [place] [facility] [address] [id number] [place] [address] 2546 Jan, [facility] [place] [facility] [address] [id number] [place] [address]- 7923 Dec, [facility] [place] [facility] [address] [id number] [place] [address]- 0269 Dec, [facility] [place] [facility] [address] [id number] [place] [address]- 0637 Nov, [facility] [place] [facility] [address] [id number] [place] [address]- 5177 Nov, [facility] [place] [facility] [address] [id number] [place] [address]- 5929 Nov, [facility] [place] [facility] [address] [id number] [place] [address]- 1885 October, [facility] [place] [facility] [address] [id number] [place] [address]- 4590 Sep, [facility] [place] [facility] [address] [id number] [place] [address]- 1503 16 Sep, 2011 [facility] [place] [facility] [address] [id number] [place] [address]- 3547 Sep, [facility] [place] [facility] [address] [id number] [place] [address] 2546 Aug, [facility] [place] [facility] [address] [id number] [place] [address]- 6908 Aug, [facility] [place] [facility] [address] [id number] [place] [address]- 5327 20 Aug, 2011 [facility] [place] [facility] [address] [id number] [place] [address]- 3666 15 Aug, 2011 [facility] [place] [facility] [address] [id number] [place] [address]- 2272 14 Aug, 2011 [facility] [place] [facility] [address] [id number] [place] [address]- 1410 12 Aug, 2011 [facility] [place] [facility] [address] [id number] [place] [address]- 2245 08 Aug, 2011 [facility] [place] [facility] [address] [id number] [place] [address]- 7350 05 Aug, 2011 [facility] [place] [facility] [address] [id number] [place] [address]- 7691 Jul, [facility] [place] [facility] [address] [id number] [place] [address]- 2542 Jul, [facility] [place] [facility] [address] [id number] [place] [address]- 3566 Jul, [facility] [place] [facility] [address] [id number] [place] [address]- 0682 15 Jul, 2011 [facility] [place] [facility] [address] [id number] [place] [address]- 2886 Jul, [facility] [place] [facility] [address] [id number] [place] [address] Jul, [facility] [place] [facility] [address] [id number] [place] [address] Jun, [facility] [place] [facility] [address] [id number] [place] [address] Jun, [facility] [place] [facility] [address] [id number] [place] [address] Jun, [facility] [place] [facility] [address] [id number] [place] [address] 02 Jun, 2011 [facility] [address] [id number] [place] [address] 29 May, 2011 [facility] [address] [id number] [place] [address] May, [facility] [address] [id number] [place] [address] May, [facility] [address] [id number] [place] [address] May, [facility] [address] [id number] [place] [address] May, [facility] [address] [id number] [place] [address] 30 Apr, 2011 [facility] [address] [id number] [place] [address] 14 Apr, 2011 [facility] [address] [id number] [place] [address] 31 Mar, 2011 [facility] [address] [id number] [place] [address] 15 Feb, 2011 [facility] [address] [id number] [place] [address] 12 Feb, 2011 [facility] [address] [id number] [place] [address] May, [facility] [address] [id number] [place] [address] 23 Apr, 2010 [facility] [place] [facility] [address] [id number] [place] [address] 15 Apr, 2010 [facility] [place] [facility] [address] [id number] [place] [address] 15 Apr, 2010 [facility] [address] [id number] [place] [address] Apr, [facility] [address] [facility] [id number] [place] [address] Apr, [facility] [address] [facility] [id number] [place] [address] Apr, [facility] [address] [facility] [id number] [place] [address] Mar, [facility] [address] [id number] [place] [address] Mar, [facility] [address] [facility] [id number] [place] [address] Sep, IMMUNIZATIONS No Known Immunizations SOCIAL HISTORY Never Assessed REASON FOR VISIT Refill request PLAN OF CARE VITAL SIGNS MEDICATIONS Medication Instructions Dosage Frequency Start Date End Date Duration Status Trihexyphenidyl HCl 2 MG Orally TID 0.5 tablet 8h Jul, 30 days Active RESULTS No Results [...] attempts Hospitalization History Ischemic colitis, dementia, generalized debility-[facility] 07/30/17
--- OUTSIDE RECORDS SUMMARY | 2018-06-23 23:14 | XMS REPORT ---
Author Author CARO CAMARA Organization [facility] Address [address] [place] [address] Care Team Providers Care Chief Medical Technologist Name Role Phone CARO CAMARA Unavailable PROBLEMS Type Condition ICD9-CM Code SED87-DY Code Onset Dates Condition Status SNOMED Code Problem Mood disorder F39 Active 53944757 Problem Dementia F03.90 Active 94795116 Problem Hypertension, benign I10 Active 05986666 Problem Cognitive dysfunction F09 Active 686596864 Problem 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 730806888 Problem Anxiety disorder, unspecified F41.9 Active 999573380 Problem Major depression F32.9 Active 822710696 ALLERGIES No Information ENCOUNTERS Encounter Location Date Diagnosis [place] [id number] [place] [address] 87336- 0580 Mar, [facility] [id number] [place] [address] 96570- 9930 Jan, Mood disorder F39 and Dementia associated with other underlying disease without behavioral disturbance F02.80 [facility] [id number] [place] [address] [id number] Jan, Dental examination Z01.20 [facility] [address] [place] [address] Jan, Dementia F03.90 ; Mood disorder F39 ; Cognitive dysfunction F09 ; Hypertension, benign I10 ; Hypokalemia E87.6 and History of DVT of lower extremity Z86.718 [facility] [id number] [place] [address] 91302- 0147 Jan, Anxiety disorder, unspecified F41.9 and Mood disorder F39 [facility] [id number] [place] [address] 89406- 6372 Jan, Mood disorder F39 and Dementia associated with other underlying disease without behavioral disturbance F02.80 [facility] [address] [address] 8[address] Dec, Mood disorder F39 [facility] [address] [address] 8673 Dec, Mood disorder F39 [facility] [id number] [place] [address] 01478- 8403 Nov, [facility] [id number] [place] [address] 45968- 1391 Nov, Dementia without behavioral disturbance, unspecified dementia type F03.90 ; Cognitive dysfunction F09 and Major depression F32.9 [facility] [address] [place] [address] October, Encounter for examination for admission to residential Z02.2 ; Tardive dyskinesia G24.01 ; Major depression F32.9 ; Anxiety disorder, unspecified F41.9 ; Cognitive dysfunction F09 and Dementia without behavioral disturbance, unspecified dementia type F03.90 [place] [address] [place] [address] 61992- 6223 October, [facility] [address] [place] [address] 90159- 0665 October, [facility] [address] [place] [address] 09969- 4204 Sep, Acute deep vein thrombosis (DVT) of proximal vein of left lower extremity I82.4Y2 [facility] [address] [address] 8113 Sep, Mood disorder F39 and Dementia associated with other underlying disease without behavioral disturbance F02.80 [facility] [address] [address] 76[address] Sep, Mood disorder F39 and Acute deep vein thrombosis (DVT) of proximal vein of left lower extremity I82.4Y2 [facility] [id number] [address] 6[address] Sep, [facility] [employer] [address] [place] [id number] Sep, History of DVT (deep vein thrombosis) Z86.718 and Dementia F03.90 [facility] [address] [address] 37[address] Sep, Mood disorder F39 and Dementia without behavioral disturbance, unspecified dementia type F03.90 [facility] [address] [facility] [id number] [address] Aug, [place] [address] [place] [address] 57744- 0989 Aug, [facility] [address] [id number] [id number] Aug, [facility] [address] [address] 64[address] Aug, [facility] [address] [address] 8846 Aug, Acute deep vein thrombosis (DVT) of proximal vein of left lower extremity I82.4Y2 [facility] [address] [place] [id number] Aug, Left leg swelling M79.89 [facility] [address] [address] 2678 Aug, Mood disorder F39 and Dementia without behavioral disturbance, unspecified dementia type F03.90 [facility] [id number] [address] 1806 Jul, [facility] [address] [address] 7338 Jul, Dementia without behavioral disturbance, unspecified dementia type F03.90 and Mood disorder F39 [facility] [employer] [address] [place] [id number] Jul, Encounter for examination for admission to residential Z02.2 ; Rectal bleed K62.5 ; Dementia without behavioral disturbance, unspecified dementia type F03.90 ; Hypertension, benign I10 ; Edema R60.9 and Major depression F32.9 [facility] [id number] [place] [address] [id number] Jul, [facility] [id number] [place] [address] 97459859- 5543 Apr, Dementia without behavioral disturbance, unspecified dementia type F03.90 and Mood disorder F39 [facility] [id number] [place] [address] 51214- 2312 Apr, [facility] [id number] [place] [address] 48151- 9124 Feb, Hypertension, benign I10 [facility] [id number] [place] [address] 54649- 3539 Dec, Major depression F32.9 ; Anxiety disorder, unspecified F41.9 ; Cognitive dysfunction F09 and Dementia without behavioral disturbance, unspecified dementia type F03.90 [facility] [address] [address] 2226 October, Hypertension, benign I10 [facility] [address] [place] [address] 25747- 8748 Sep, Major depression F32.9 ; Anxiety disorder, unspecified F41.9 and Cognitive dysfunction F09 [facility] [address] [place] [address] 57082- 0984 Apr, Major depression F32.9 and Cognitive dysfunction F09 [facility] [address] [place] [address] 43233- 7834 Jan, Anxiety disorder, unspecified F41.9 ; Major depression F32.9 and Cognitive dysfunction F09 [facility] [address] [place] [address] 34097- 3267 Jan, [facility] [id number] [place] [address] 59471- 3929 Dec, [place] [address] [address] 9316 Dec, [place] [id number] [place] [address] 30548- 9916 Nov, Anxiety disorder, unspecified F41.9 ; Major depression F32.9 and Cognitive dysfunction F09 [place] [id number] [place] [address] 07073- 9269 October, Dementia without behavioral disturbance, unspecified dementia type F03.90 [place] [id number] [place] [address] 23836- 5980 Sep, Cognitive dysfunction F09 and Edema R60.9 [place] [id number] [place] [address] 04584- 8858 Sep, Cognitive dysfunction F09 and Edema R60.9 [place] [id number] [place] [address] 65282- 7319 Aug, Self-care deficit for medication administration R41.89 ; Self-care deficit in patient living alone R46.89 and Cognitive dysfunction F09 [place] [address] [place] [address] 26290- 4114 Aug, 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 and Unspecified intracranial injury without loss of consciousness, sequela S06.9X0S [place] [address] [address] 1946 Jul, [place] [address] [place] [address] 13107- 7200 Jun, Anxiety disorder, unspecified F41.9 and Major depression F32.9 [place] [address] [place] [address] 366971- 1076 Jun, [place] [address] [address] 1908 May, [place] [id number], [place] [address]- 2506 May, Nausea R11.0 [facility] [id number] [place] [address] 65103- 2452 Apr, [facility] [id number] [place] [address] 65545- 9073 Mar, Major depression F32.9 [facility] [id number] [place] [address] 82847- 6652 Mar, Encounter for immunization Z23 [facility] [id number] [place] [address] 99475- 4633 Mar, Major depression F32.9 and Anxiety disorder, unspecified F41.9 [facility] [id number] [place] [address] 80848- 5176 Dec, Major depression, chronic 296.20 and Anxiety disorder, unspecified 300.00 [facility] [id number] [place] [address] 99870- 5085 October, Hypertension 401.9 [facility] [id number] [place] [address] 18045- 5629 Sep, [facility] [id number] [place] [address] 55577- 9735 Sep, [facility] [address] [address]- 7095 Jul, [facility] [id number] [place] [address] 40036- 6236 Jul, [facility] [address] [place] [address] 47463- 6918 Jul, [facility] [address] [place] [address] 096215- 4545 May, [facility] [address] [address]- 1699 May, [facility] [id number] [place] [address]- 5099 May, [facility] [place] [facility] [address] [id number] [place] [address]- 0353 May, [facility] [place] [facility] [address] [id number] [place] [address]- 7930 Apr, [facility] [place] [facility] [address] [id number] [place] [address]- 8540 Apr, [facility] [place] [facility] [address] [id number] [place] [address]- 6287 Feb, [facility] [place] [facility] [address] [id number] [place] [address]- 4323 Feb, [facility] [place] [facility] [address] [id number] [place] [address]- 4976 Jan, [facility] [place] [facility] [address] [id number] [place] [address]- 6251 Jan, [facility] [place] [facility] [address] [id number] [place] [address]- 4024 Jan, [facility] [place] [facility] [address] [id number] [place] [address]- 6166 Jan, [facility] [place] [facility] [address] [id number] [place] [address]- 4174 Dec, [facility] [place] [facility] [address] [id number] [place] [address]- 6166 Dec, [facility] [place] [facility] [address] [id number] [place] [address]- 6103 Nov, [facility] [place] [facility] [address] [id number] [place] [address]- 8120 Nov, [facility] [place] [facility] [address] [id number] [place] [address]- 1857 Nov, [facility] [place] [facility] [address] [id number] [place] [address]- 4073 Nov, [facility] [place] [facility] [address] [id number] [place] [address]- 3285 October, [facility] [place] [facility] [address] [id number] [place] [address]- 2525 October, [facility] [place] [facility] [address] [id number] [place] [address]- 6444 Sep, [facility] [place] [facility] [address] [id number] [place] [address]- 1953 Sep, [facility] [place] [facility] [address] [id number] [place] [address]- 0884 Sep, [facility] [place] [facility] [address] [id number] [place] [address]- 2311 Sep, [facility] [place] [facility] [address] [id number] [place] [address]- 4621 Sep, [facility] [place] [facility] [address] [id number] [place] [address]- 0431 Sep, [facility] [place] [facility] [address] [id number] [place] [address]- 8287 Aug, [facility] [place] [facility] [address] [id number] [place] [address]- 2621 Aug, [facility] [place] [facility] [address] [id number] [place] [address]- 3528 Jul, [facility] [place] [facility] [address] [id number] [place] [address]- 4395 Jul, [facility] [place] [facility] [address] [id number] [place] [address]- 0231 May, [facility] [place] [facility] [address] [id number] [place] [address]- 4163 May, [facility] [place] [facility] [address] [id number] [place] [address]- 6832 May, [facility] [place] [facility] [address] [id number] [place] [address]- 2102 May, [facility] [address] [id number] [place] [address]- 3811 May, [facility] [place] [facility] [address] [id number] [place] [address]- 6804 May, [facility] [address] [id number] [place] [address]- 3135 Apr, [facility] [place] [facility] [address] [id number] [place] [address]- 0705 Apr, [facility] [address] [id number] [place] [address]- 9447 Apr, [facility] [place] [facility] [address] [id number] [place] [address]- 0403 Apr, [facility] [address] [id number] [place] [address]- 0673 Apr, [facility] [place] [facility] [address] [id number] [place] [address]- 7992 Apr, [facility] [place] [facility] [address] [id number] [place] [address]- 2879 Feb, [facility] [place] [facility] [address] [id number] [place] [address]- 2724 Feb, [facility] [place] [facility] [address] [id number] [place] [address]- 3143 18 Feb, 2013 [facility] [place] [facility] [address] [id number] [place] [address]- 2547 Feb, [facility] [place] [facility] [address] [id number] [place] [address]- 9798 Jan, [facility] [place] [facility] [address] [id number] [place] [address]- 0216 Dec, [facility] [place] [facility] [address] [id number] [place] [address]- 3467 Dec, [facility] [place] [facility] [address] [id number] [place] [address]- 5616 Dec, [facility] [address] [id number] [place] [address]- 0269 Dec, [facility] [address] [id number] [place] [address]- 7328 Nov, [facility] [address] [id number] [place] [address] 2546 Nov, [facility] [address] [id number] [place] [address]- 5762 October, [facility] [address] [id number] [place] [address]- 5336 October, [facility] [address] [id number] [place] [address]- 5941 October, [facility] [address] [id number] [place] [address]- 1136 October, [facility] [address] [id number] [place] [address]- 6174 Sep, [facility] [address] [id number] [place] [address]- 0566 Aug, [facility] [address] [id number] [place] [address]- 1161 Aug, [facility] [place] [facility] [address] [id number] [place] [address]- 9176 15 Aug, 2012 [facility] [place] [facility] [address] [id number] [place] [address]- 6345 Aug, [facility] [place] [facility] [address] [id number] [place] [address]- 0046 Jul, [facility] [place] [facility] [address] [id number] [place] [address]- 2546 Jul, [facility] [place] [facility] [address] [id number] [address]- 8766 Jul, [facility] [place] [facility] [address] [id number] [place] [address]- 7744 Jun, [facility] [place] [facility] [address] [id number] [place] [address]- 0972 Jun, [facility] [place] [facility] [address] [facility] [id number] [place] [address]- 1815 May, [facility] [place] [facility] [address] [id number] [place] [address]- 1944 May, [facility] [place] [facility] [address] [id number] [place] [address]- 2352 Apr, [facility] [place] [facility] [address] [id number] [place] [address]- 1537 Apr, [facility] [place] [facility] [address] [facility] [id number] [place] [address]- 2560 Apr, [facility] [place] [facility] [address] [id number] [place] [address]- 1441 Apr, [facility] [place] [facility] [address] [id number] [place] [address]- 0136 Apr, [facility] [place] [facility] [address] [facility] [id number], [place] [address]- 4630 Apr, [facility] [place] [facility] [address] [id number], [place] [address]- 8463 Mar, [facility] [place] [facility] [address] [id number], [place] [address]- 3104 Mar, [facility] [place] [facility] [address] [id number], [place] [address]- 8657 Mar, [facility] [place] [facility] [address] [id number], [place] [address]- 9707 Mar, [facility] [place] [facility] [address] [facility] [id number] [place] [address]- 3352 Mar, [facility] [place] [facility] [address] [id number] [place] [address]- 0289 Mar, [facility] [place] [facility] [address] [id number] [place] [address]- 1557 Mar, [facility] [place] [facility] [address] [id number] [place] [address] 2546 Feb, [facility] [place] [facility] [address] [id number] [place] [address] 2546 Feb, [facility] [place] [facility] [address] [id number] [place] [address] 2546 Jan, [facility] [place] [facility] [address] [id number] [place] [address]- 6403 Dec, [facility] [place] [facility] [address] [id number] [place] [address]- 3394 Dec, [facility] [place] [facility] [address] [id number] [place] [address]- 4411 Nov, [facility] [place] [facility] [address] [id number] [place] [address]- 4925 Nov, [facility] [place] [facility] [address] [id number] [place] [address]- 5445 Nov, [facility] [place] [facility] [address] [id number] [place] [address]- 4787 October, [facility] [place] [facility] [address] [id number] [place] [address]- 6946 Sep, [facility] [place] [facility] [address] [id number] [place] [address]- 8613 16 Sep, 2011 [facility] [place] [facility] [address] [id number] [place] [address]- 6654 Sep, [facility] [place] [facility] [address] [id number] [place] [address] 2546 Aug, [facility] [place] [facility] [address] [id number] [place] [address]- 6320 Aug, [facility] [place] [facility] [address] [id number] [place] [address]- 4944 20 Aug, 2011 [facility] [place] [facility] [address] [id number] [place] [address]- 6506 15 Aug, 2011 [facility] [place] [facility] [address] [id number] [place] [address]- 4059 14 Aug, 2011 [facility] [place] [facility] [address] [id number] [place] [address]- 3839 12 Aug, 2011 [facility] [place] [facility] [address] [id number] [place] [address]- 7233 08 Aug, 2011 [facility] [place] [facility] [address] [id number] [place] [address]- 9145 05 Aug, 2011 [facility] [place] [facility] [address] [id number] [place] [address]- 3771 Jul, [facility] [place] [facility] [address] [id number] [place] [address]- 7762 Jul, [facility] [place] [facility] [address] [id number] [place] [address]- 9149 Jul, [facility] [place] [facility] [address] [id number] [place] [address]- 9094 15 Jul, 2011 [facility] [place] [facility] [address] [id number] [place] [address]- 1766 Jul, [facility] [place] [facility] [address] [id number] [place] [address] Jul, [facility] [place] [facility] [address] [id number] [place] [address] Jun, [facility] [place] [facility] [address] [id number] [place] [address] Jun, [facility] [place] [facility] [address] [id number] [place] [address] Jun, [facility] [place] [facility] [address] [id number] [place] [address] 02 Jun, 2011 [facility] [address] [id number] [place] [address] 29 May, 2011 [facility] [address] [id number] [place] [address] May, [facility] [address] [id number] [place] [address] May, [facility] [address] [id number] [place] [address] May, [facility] [address] [id number] [place] [address] May, [facility] [address] [id number] [place] [address] 30 Apr, 2011 [facility] [address] [id number] [place] [address] 14 Apr, 2011 [facility] [address] [id number] [place] [address] 31 Mar, 2011 [facility] [address] [id number] [place] [address] 15 Feb, 2011 [facility] [address] [id number] [place] [address] 12 Feb, 2011 [facility] [address] [id number] [place] [address] May, [facility] [address] [id number] [place] [address] 23 Apr, 2010 [facility] [place] [facility] [address] [id number] [place] [address] 15 Apr, 2010 [facility] [place] [facility] [address] [id number] [place] [address] 15 Apr, 2010 [facility] [address] [id number] [place] [address] Apr, [facility] [address] [facility] [id number] [address] Apr, [facility] [address] [facility] [id number], [place] [address] Apr, [facility] [address] [facility] [id number], [place] [address] Mar, [facility] [address] [facility] [id number], [place] [address] Mar, [facility] [address] [facility] [id number], [place] [address] Sep, IMMUNIZATIONS No Known Immunizations SOCIAL HISTORY Never Assessed REASON FOR VISIT restart Seroquel PLAN OF CARE VITAL SIGNS MEDICATIONS Medication Instructions Dosage Frequency Start Date End Date Duration Status Quetiapine Fumarate 50 MG Orally Once a day 1 tab at hs and increase by 1 tab a day to a maximum of 4 tabs at hs 24h Jan, 4 days Active Quetiapine Fumarate 100 mg Orally Once a day at hs after tapering up with the 50mg tab to 200mg 2 tablet Jan, 30 day(s) Active RESULTS No Results PROCEDURES No Known [...] attempts Hospitalization History Ischemic colitis, dementia, generalized debility-[facility] 07/30/17
--- OUTSIDE RECORDS SUMMARY | 2018-06-23 23:15 | XMS REPORT ---
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 Name Role Phone SAADBRYCE WHIT Unavailable PROBLEMS Type Condition ICD9-CM Code DXZ25-ID Code Onset Dates Condition Status SNOMED Code Problem Mood disorder F39 Active 50428786 Problem Dementia F03.90 Active 43784181 Problem Hypertension, benign I10 Active 59475094 Problem Cognitive dysfunction F09 Active 377673196 Problem 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 508404176 Problem Anxiety disorder, unspecified F41.9 Active 572151829 Problem Major depression F32.9 Active [id number] ALLERGIES No Information ENCOUNTERS Encounter Location Date Diagnosis [facility] [id number] [place] [address] 87285- 1593 Mar, [facility] [id number] [place] [address] 75625- 2359 Jan, Mood disorder F39 and Dementia associated with other underlying disease without behavioral disturbance F02.80 [facility] [id number] [place] [address] [id number] Jan, Dental examination Z01.20 [facility] [address] [place] [address] Jan, Dementia F03.90 ; Mood disorder F39 ; Cognitive dysfunction F09 ; Hypertension, benign I10 ; Hypokalemia E87.6 and History of DVT of lower extremity Z86.718 [facility] [id number] [place] [address] 68802- 8503 Jan, Anxiety disorder, unspecified F41.9 and Mood disorder F39 [facility] [id number] [place] [address] 94992- 1312 Jan, Mood disorder F39 and Dementia associated with other underlying disease without behavioral disturbance F02.80 [facility] [address] [address] 2017 Dec, Mood disorder F39 [facility] [address] [address] 8113 Dec, Mood disorder F39 [facility] [id number] [place] [address] 42133- 4477 Nov, [facility] [id number] [place] [address] 63601- 8257 Nov, Dementia without behavioral disturbance, unspecified dementia type F03.90 ; Cognitive dysfunction F09 and Major depression F32.[address] [facility] [address] [place] [address] October, Encounter for examination for admission to [facility] Z02.2 ; Tardive dyskinesia G24.01 ; Major depression F32.9 ; Anxiety disorder, unspecified F41.9 ; Cognitive dysfunction F09 and Dementia without behavioral disturbance, unspecified dementia type F03.90 [facility] [id number] [place] [address] 50223- 6505 October, [facility] [id number] [place] [address] 39357- 5260 October, [facility] [id number] [place] [address] 35280- 0352 Sep, Acute deep vein thrombosis (DVT) of proximal vein of left lower extremity I82.4Y2 [facility] [address], [place] [address] 6406 Sep, Mood disorder F39 and Dementia associated with other underlying disease without behavioral disturbance F02.80 [facility] [address], [place] [address] 2[address] Sep, Mood disorder F39 and Acute deep vein thrombosis (DVT) of proximal vein of left lower extremity I82.4Y2 [facility] [id number] [address] Sep, [facility] [address] [place] [id number] Sep, History of DVT (deep vein thrombosis) Z86.718 and Dementia F03.90 [facility] [address], [place] [address] Sep, Mood disorder F39 and Dementia without behavioral disturbance, unspecified dementia type F03.90 [facility] [address], [place] [address] 1060 Aug, [facility] [id number] [place] [address] 09347- 5499 Aug, [facility] [id number] [id number] Aug, [facility] [id number] [place] [address] 42097- 5384 Aug, [facility] [address] [address] 3344 Aug, Acute deep vein thrombosis (DVT) of proximal vein of left lower extremity I82.4Y2 [facility] [employer] [address] [place] [id number] Aug, Left leg swelling M79.89 [facility] [address], [place] [address] 2620 Aug, Mood disorder F39 and Dementia without behavioral disturbance, unspecified dementia type F03.90 [facility] [address], [place] [address] 9221 Jul, [facility] [id number] [place] [address] 94906- 9255 Jul, Dementia without behavioral disturbance, unspecified dementia type F03.90 and Mood disorder F39 [facility] [employer] [address] [place] [id number] Jul, Encounter for examination for admission to [facility] Z02.2 ; Rectal bleed K62.5 ; Dementia without behavioral disturbance, unspecified dementia type F03.90 ; Hypertension, benign I10 ; Edema R60.9 and Major depression F32.9 [facility] [id number] [place] [address] [id number] Jul, [facility] [id number] [place] [address] 80240- 4321 Apr, Dementia without behavioral disturbance, unspecified dementia type F03.90 and Mood disorder F39 [facility] [id number] [place] [address] 44605- 3026 Apr, [facility] [id number] [place] [address] 60058- 3515 Feb, Hypertension, benign I10 [facility] [id number] [place] [address] 97108- 8897 Dec, Major depression F32.9 ; Anxiety disorder, unspecified F41.9 ; Cognitive dysfunction F09 and Dementia without behavioral disturbance, unspecified dementia type F03.90 [facility] [id number] [place] [address] 66176- 0125 October, Hypertension, benign I10 [facility] [id number] [place] [address] 29392- 9196 Sep, Major depression F32.9 ; Anxiety disorder, unspecified F41.9 and Cognitive dysfunction F09 [facility] [address] [place] [address] 33321- 9845 Apr, Major depression F32.9 and Cognitive dysfunction F09 [facility] [id number] [place] [address] 97165- 9564 Jan, Anxiety disorder, unspecified F41.9 ; Major depression F32.9 and Cognitive dysfunction F09 [facility] [id number] [place] [address] 03152- 3453 Jan, [facility] [id number] [place] [address] 69126- 9959 Dec, [facility] [id number] [place] [address] 83066- 8870 Dec, [facility] [id number] [place] [address] 52667- 9880 Nov, Anxiety disorder, unspecified F41.9 ; Major depression F32.9 and Cognitive dysfunction F09 [facility] [id number] [place] [address] 10000- 7653 October, Dementia without behavioral disturbance, unspecified dementia type F03.90 [facility] [id number] [place] [address] 57288- 2510 Sep, Cognitive dysfunction F09 and Edema R60.9 [facility] [id number] [place] [address] 07161- 9406 Sep, Cognitive dysfunction F09 and Edema R60.9 [facility] [id number] [place] [address] 35756- 7831 Aug, Self-care deficit for medication administration R41.89 ; Self-care deficit in patient living alone R46.89 and Cognitive dysfunction F09 [facility] [id number] [place] [address] 08476- 6980 Aug, 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 and Unspecified intracranial injury without loss of consciousness, sequela S06.9X0S [facility] [id number] [place] [address] 31140- 1794 Jul, [facility] [id number] [place] [address] 12837- 6984 Jun, Anxiety disorder, unspecified F41.9 and Major depression F32.9 [facility] [id number] [place] [address] 842258- 8350 Jun, [facility] [id number] [place] [address] 30563- 1668 May, [facility] [address] [place] [address]- 9667 May, Nausea R11.0 [facility] [id number] [place] [address] 75145- 0871 Apr, [facility] [id number] [place] [address] 24991- 7466 Mar, Major depression F32.9 [facility] [id number] [place] [address] 59204- 1187 Mar, Encounter for immunization Z23 [facility] [id number] [place] [address] 32767- 2231 Mar, Major depression F32.9 and Anxiety disorder, unspecified F41.9 [facility] [id number] [place] [address] 12944- 3192 Dec, Major depression, chronic 296.20 and Anxiety disorder, unspecified 300.00 [facility] [id number] [place] [address] 73105- 8799 October, Hypertension 401.9 [facility] [id number] [place] [address] 96108- 4722 Sep, [facility] [id number] [place] [address] 82982- 0907 Sep, [facility] [id number] [place] [address] 03988- 9399 Jul, [facility] [id number] [place] [address] 44984- 5106 Jul, [facility] [id number] [place] [address] 78619- 5202 Jul, [facility] [id number] [place] [address] 66490- 6505 May, [facility] [address], [place] [address]- 6123 May, [facility] [id number] [address]- 1636 May, [facility] [place] [facility] [address] [id number] [place] [address]- 4965 May, [facility] [place] [facility] [address] [id number] [place] [address]- 0147 Apr, [facility] [place] [facility] [address] [id number] [place] [address]- 5219 Apr, [facility] [place] [facility] [address] [id number] [place] [address]- 9747 Feb, [facility] [place] [facility] [address] [id number] [place] [address]- 3840 Feb, [facility] [place] [facility] [address] [id number] [place] [address]- 5947 Jan, [facility] [place] [facility] [address] [id number] [place] [address]- 7254 Jan, [facility] [place] [facility] [address] [id number] [place] [address]- 5273 Jan, [facility] [place] [facility] [address] [id number] [place] [address]- 4565 Jan, [facility] [place] [facility] [address] [id number] [place] [address]- 0581 Dec, [facility] [place] [facility] [address] [id number] [place] [address]- 0426 Dec, [facility] [place] [facility] [address] [id number] [place] [address]- 2736 Nov, [facility] [place] [facility] [address] [id number] [place] [address]- 7400 Nov, [facility] [place] [facility] [address] [id number] [place] [address]- 9434 Nov, [facility] [place] [facility] [address] [id number] [place] [address]- 7546 Nov, [facility] [address] [id number] [place] [address]- 3207 October, [facility] [place] [facility] [address] [id number] [place] [address]- 3275 October, [facility] [place] [facility] [address] [id number] [place] [address]- 2553 Sep, [facility] [place] [facility] [address] [id number] [place] [address]- 9345 Sep, [facility] [place] [facility] [address] [id number] [place] [address]- 5015 Sep, [facility] [place] [facility] [address] [id number] [place] [address]- 7019 Sep, [facility] [place] [facility] [address] [id number] [place] [address]- 0971 Sep, [facility] [place] [facility] [address] [id number] [place] [address]- 7175 Sep, [facility] [place] [facility] [address] [id number] [place] [address]- 1347 Aug, [facility] [place] [facility] [address] [id number] [place] [address]- 6152 Aug, [facility] [place] [facility] [address] [id number] [place] [address]- 4237 Jul, [facility] [place] [facility] [address] [id number] [place] [address]- 0719 Jul, [facility] [place] [facility] [address] [id number] [place] [address]- 5675 May, [facility] [place] [facility] [address] [id number] [place] [address]- 7738 May, [facility] [place] [facility] [address] [id number] [place] 2022 May, [facility] [place] [facility] [address] [id number] [place] [address]- 9284 May, [facility] [address] [id number] [place] [address]- 5458 May, [facility] [address] [id number] [place] [address]- 8976 May, [facility] [address] [id number] [place] [address]- 4972 Apr, [facility] [place] [facility] [address] [id number] [place] 1578 Apr, [facility] [address] [id number] [place] [address]- 2545 Apr, [facility] [place] [facility] [address] [id number] [place] [address]- 6561 Apr, [facility] [address] [id number] [place] [address]- 4305 Apr, [facility] [place] [facility] [address] [id number] [place] [address]- 4447 Apr, [facility] [address] [id number] [place] [address]- 4320 Feb, [facility] [place] [facility] [address] [id number] [place] [address]- 8534 Feb, [facility] [place] [facility] [address] [id number] [place] [address]- 0956 Feb, [facility] [place] [facility] [address] [id number], [place] [address]- 3213 Feb, [facility] [place] [facility] [address] [id number] [place] [address]- 8920 Jan, [facility] [place] [facility] [address] [id number] [place] [address]- 8754 Dec, [facility] [place] [facility] [address] [id number], [place] [address]- 8612 Dec, [facility] [place] [facility] [address] [id number] [place] [address]- 5164 Dec, [facility] [address] [id number] [place] [address]- 6422 Dec, [facility] [place] [facility] [address] [id number] [place] [address]- 5164 Nov, [facility] [place] [facility] [address] [id number] [place] [address]- 7123 Nov, [facility] [place] [facility] [address] [id number] [place] [address]- 7762 October, [facility] [place] [facility] [address] [id number] [place] [address]- 7505 October, [facility] [address] [id number] [place] [address]- 1791 October, [facility] [address] [id number] [place] [address]- 3259 October, [facility] [address] [id number] [place] [address]- 3300 Sep, [facility] [address] [id number] [place] [address]- 1394 Aug, [facility] [address] [id number] [place] [address]- 4489 Aug, [facility] [place] [facility] [address] [id number] [place] [address]- 3452 15 Aug, 2012 [facility] [place] [facility] [address] [id number] [place] [address]- 2276 Aug, [facility] [place] [facility] [address] [id number] [place] [address]- 2236 Jul, [facility] [place] [facility] [address] [id number] [place] [address]- 1586 Jul, [facility] [place] [facility] [address] [id number], [place] [address]- 0788 Jul, [facility] [place] [facility] [address] [id number] [place] [address]- 0044 Jun, [facility] [place] [facility] [address] [id number] [place] 4773 Jun, [facility] [place] [facility] [address] [id number] [place] [address]- 9324 May, [facility] [place] [facility] [address] [id number] [place] [address]- 7720 May, [facility] [place] [facility] [address] [id number] [place] [address]- 5690 Apr, [facility] [place] [facility] [address] [id number] [place] [address]- 0840 Apr, [facility] [place] [facility] [address] [id number] [place] [address]- 0555 Apr, [facility] [place] [facility] [address] [id number] [place] [address]- 4254 Apr, [facility] [place] [facility] [address] [id number] [place] [address]- 0736 Apr, [facility] [place] [facility] [address] [id number] [place] [address]- 6216 Apr, [facility] [place] [facility] [address] [id number], [place] [address]- 0456 Mar, [facility] [place] [facility] [address] [id number], [place] [address]- 2971 Mar, [facility] [place] [facility] [address] [id number] [place] [address]- 4213 Mar, [facility] [place] [facility] [address] [id number] [place] [address]- 0573 Mar, [facility] [place] [facility] [address] [id number] [place] [address]- 6180 Mar, [facility] [place] [facility] [address] [id number] [place] [address]- 2105 Mar, [facility] [address] [id number] [place] [address]- 2383 Mar, [facility] [place] [facility] [address] [id number] [place] [address] 2546 Feb, [facility] [address] [id number] [place] [address]- 9275 Feb, [facility] [place] [facility] [address] [id number] [place] [address]- 6921 Jan, [facility] [address] [id number] [place] [address]- 7688 Dec, [facility] [address] [id number] [place] [address]- 9684 Dec, [facility] [address] [id number] [place] [address]- 3837 Nov, [facility] [address] [id number] [place] [address]- 6674 Nov, [facility] [address] [id number] [place] [address]- 3740 Nov, [facility] [address] [id number] [place] [address]- 6971 October, [facility] [address] [id number] [place] [address]- 5309 Sep, [facility] [address] [id number] [place] [address]- 4865 16 Sep, 2011 [facility] [place] [facility] [address] [id number] [place] [address]- 8948 Sep, [facility] [place] [facility] [address] [id number] [place] [address]- 0966 Aug, [facility] [place] [facility] [address] [id number] [place] [address]- 5831 Aug, [facility] [place] [facility] [address] [id number] [place] [address]- 4586 20 Aug, 2011 [facility] [place] [facility] [address] [id number] [place] 6086 15 Aug, 2011 [facility] [place] [facility] [address] [id number] [place] [address]- 6706 14 Aug, 2011 [facility] [place] [facility] [address] [id number] [place] [address]- 4426 12 Aug, 2011 [facility] [place] [facility] [address] [id number] [place] [address]- 2126 08 Aug, 2011 [facility] [place] [facility] [address] [id number] [place] [address]- 5660 05 Aug, 2011 [facility] [place] [facility] [address] [id number] [place] [address]- 6211 27 Jul, 2011 [facility] [place] [facility] [address] [id number] [place] [address]- 1414 Jul, [facility] [place] [facility] [address] [id number] [place] [address]- 6540 Jul, [facility] [place] [facility] [address] [id number] [place] [address]- 1706 15 Jul, 2011 [facility] [place] [facility] [address] [id number] [place] [address]- 3306 Jul, [facility] [place] [facility] [address] [id number] [place] [address]- 2317 Jul, [facility] [place] [facility] [address] [id number] [place] [address] Jun, [facility] [place] [facility] [address] [id number] [place] [address] Jun, [facility] [place] [facility] [address] [id number] [place] [address] Jun, [facility] [place] [facility] [address] [id number] [place] [address] 02 Jun, 2011 [facility] [address] [id number] [place] [address] 29 May, 2011 [facility] [address] [id number] [place] [address] 28 May, 2011 [facility] [address] [id number] [place] [address] May, [facility] [address] [id number] [place] [address] May, [facility] [address] [id number] [place] [address] May, [facility] [address] [id number] [place] [address] 30 Apr, 2011 [facility] [address] [id number] [place] [address] 14 Apr, 2011 [facility] [address] [id number] [place] [address] 31 Mar, 2011 [facility] [address] [id number] [place] [address] 15 Feb, 2011 [facility] [address] [id number] [place] [address] 12 Feb, 2011 [facility] [address] [id number] [place] [address] May, [facility] [address] [id number] [place] [address] 23 Apr, 2010 [facility] [place] [facility] [address] [id number] [place] [address] 15 Apr, 2010 [facility] [place] [facility] [address] [id number] [place] [address] 15 Apr, 2010 [facility] [address] [id number] [place] [address] Apr, [facility] [address] [facility] [id number] [address] Apr[place] [facility] [address] [id number], [place] [address] Apr, [facility] [address] [id number], [place] [address] Mar, [facility] [address] [id number], [place] [address] Mar, [facility] [address] [facility] [facility] [id number], [place] [address] Sep, IMMUNIZATIONS No Known Immunizations SOCIAL HISTORY Never Assessed REASON FOR VISIT follow, med changes PLAN OF CARE VITAL SIGNS MEDICATIONS Unknown [...] attempts Hospitalization History Ischemic colitis, dementia, generalized debility-[facility] 07/30/17
--- OUTSIDE RECORDS SUMMARY | 2018-06-23 23:15 | XMS REPORT ---
Author Author GRACE WHIT [facility] Address [address] [place] [address] Care Team Providers Care Answerer Name Role Phone SAADBRYCE WHIT Unavailable PROBLEMS Type Condition ICD9-CM Code [id number] Code Onset Dates Condition Status SNOMED Code Problem Mood disorder F39 Active 97467143 Problem Dementia F03.90 Active 62380427 Problem Hypertension, benign I10 Active 38279891 Problem Cognitive dysfunction F09 Active 677195463 Problem 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 901668979 Problem Anxiety disorder, unspecified F41.9 Active 306134411 Problem Major depression F32.9 Active [id number] ALLERGIES No Information ENCOUNTERS Encounter Location Date Diagnosis [facility] [id number] [place] [address] 45741- 1964 Mar, [facility] [id number] [place] [address] 09539- 1994 Jan, Mood disorder F39 and Dementia associated with other underlying disease without behavioral disturbance F02.80 [facility] [id number] [place] [id number] Jan, Dental examination Z01.20 [facility] [address] [place] [address] Jan, Dementia F03.90 ; Mood disorder F39 ; Cognitive dysfunction F09 ; Hypertension, benign I10 ; Hypokalemia E87.6 and History of DVT of lower extremity Z86.718 [facility] [id number] [place] [address] 32811- 9454 Jan, Anxiety disorder, unspecified F41.9 and Mood disorder F39 [facility] [id number] [place] [address] 38119- 5864 Jan, Mood disorder F39 and Dementia associated with other underlying disease without behavioral disturbance F02.80 [facility] [address] [address] 75[address] Dec, Mood disorder F39 [facility] [address] [address] 77[address] Dec, Mood disorder F39 [facility] [id number] [place] [address] 46596- 6616 Nov, [facility] [id number] [place] [address] 21847- 0185 Nov, Dementia without behavioral disturbance, unspecified dementia type F03.90 ; Cognitive dysfunction F09 and Major depression F32.9 [facility] [employer] [facility] [address] [place] [address] October, Encounter for examination for admission to shelter Z02.2 ; Tardive dyskinesia G24.01 ; Major depression F32.9 ; Anxiety disorder, unspecified F41.9 ; Cognitive dysfunction F09 and Dementia without behavioral disturbance, unspecified dementia type F03.90 [facility] [id number] [place] [address] 70193- 2815 October, [facility] [id number] [place] [address] 78408- 7602 October, [facility] [id number] [place] [address] 77719- 6597 Sep, Acute deep vein thrombosis (DVT) of proximal vein of left lower extremity I82.4Y2 [facility] [address] [address] 7645 Sep, Mood disorder F39 and Dementia associated with other underlying disease without behavioral disturbance F02.80 [facility] [address], [place] [address] 28[address] Sep, Mood disorder F39 and Acute deep vein thrombosis (DVT) of proximal vein of left lower extremity I82.4Y2 [facility] [id number] [address] Sep, [facility] [employer] [address] [place] [id number] Sep, History of DVT (deep vein thrombosis) Z86.718 and Dementia F03.90 [facility] [address] [address] 7[address] Sep, Mood disorder F39 and Dementia without behavioral disturbance, unspecified dementia type F03.90 [facility] [address] [address] 5722 Aug, [facility] [id number] [place] [address] 26128- 3647 Aug, [facility] [id number] [id number] Aug, [facility] [id number] [place] [address] 86889- 7716 Aug, [facility] [address] [address] 5264 Aug, Acute deep vein thrombosis (DVT) of proximal vein of left lower extremity I82.4Y2 [facility] [employer] [address] [place] [id number] Aug, Left leg swelling M79.89 [facility] [address] [address] Aug, Mood disorder F39 and Dementia without behavioral disturbance, unspecified dementia type F03.90 [facility] [address] [address] 1304 Jul, [facility] [id number] [place] [address] 20191- 8587 Jul, Dementia without behavioral disturbance, unspecified dementia type F03.90 and Mood disorder F39 [facility] [employer] [address] [place] [id number] Jul, Encounter for examination for admission to shelter Z02.2 ; Rectal bleed K62.5 ; Dementia without behavioral disturbance, unspecified dementia type F03.90 ; Hypertension, benign I10 ; Edema R60.9 and Major depression F32.9 [facility] [id number] [place] [address] [id number] Jul, [facility] [id number] [place] [address] 86172- 6992 Apr, Dementia without behavioral disturbance, unspecified dementia type F03.90 and Mood disorder F39 [facility] [id number] [place] [address] 41430- 1976 Apr, [facility] [id number] [place] [address] 99907- 1927 Feb, Hypertension, benign I10 [facility] [id number] [place] [address] 20604- 0643 Dec, Major depression F32.9 ; Anxiety disorder, unspecified F41.9 ; Cognitive dysfunction F09 and Dementia without behavioral disturbance, unspecified dementia type F03.90 [facility] [address] [place] [address] 18059- 4812 October, Hypertension, benign I10 [facility] [id number] [place] [address] 63913- 6016 Sep, Major depression F32.9 ; Anxiety disorder, unspecified F41.9 and Cognitive dysfunction F09 [facility] [id number] [place] [address] 90853- 0792 Apr, Major depression F32.9 and Cognitive dysfunction F09 [facility] [id number] [place] [address] 32078- 3177 Jan, Anxiety disorder, unspecified F41.9 ; Major depression F32.9 and Cognitive dysfunction F09 [facility] [id number] [place] [address] 23383- 5530 Jan, [facility] [id number] [place] [address] 39431- 8131 Dec, [facility] [id number] [place] [address] 71247- 8961 Dec, [facility] [id number] [place] [address] 23617- 1829 Nov, Anxiety disorder, unspecified F41.9 ; Major depression F32.9 and Cognitive dysfunction F09 [facility] [id number] [place] [address] 85137- 3135 October, Dementia without behavioral disturbance, unspecified dementia type F03.90 [facility] [id number] [place] [address] 82531- 3448 Sep, Cognitive dysfunction F09 and Edema R60.9 [facility] [id number] [place] [address] 81481- 1591 Sep, Cognitive dysfunction F09 and Edema R60.9 [facility] [id number] [place] [address] 40679- 5507 Aug, Self-care deficit for medication administration R41.89 ; Self-care deficit in patient living alone R46.89 and Cognitive dysfunction F09 [facility] [id number] [place] [address] 12867- 2764 Aug, 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 and Unspecified intracranial injury without loss of consciousness, sequela S06.9X0S [facility] [id number] [place] [address] 86307- 6361 Jul, [facility] [id number] [place] [address] 04313- 1984 Jun, Anxiety disorder, unspecified F41.9 and Major depression F32.9 [facility] [id number] [place] [address] 445339- 3786 Jun, [facility] [id number] [place] [address] 22890- 3206 May, [facility] [address] [place] [address]- 4595 May, Nausea R11.0 [facility] [id number] [place] [address] 28516- 0300 Apr, [facility] [id number] [place] [address] 70380- 6665 Mar, Major depression F32.9 [facility] [id number] [place] [address] 59000- 6956 Mar, Encounter for immunization Z23 [facility] [id number] [place] [address] 60688- 9506 Mar, Major depression F32.9 and Anxiety disorder, unspecified F41.9 [facility] [id number] [place] [address] 27915- 4510 Dec, Major depression, chronic 296.20 and Anxiety disorder, unspecified 300.00 [facility] [id number] [place] [address] 68295- 1794 October, Hypertension 401.9 [facility] [id number] [place] [address] 13759- 4181 Sep, [facility] [id number] [place] [address] 08031- 4173 Sep, [facility] [id number] [place] [address] 13932- 1990 Jul, [facility] [id number] [place] [address] 52262- 6069 Jul, [facility] [id number] [place] [address] 34139- 9806 Jul, [facility] [id number] [place] [address] 63386- 7297 May, [facility] [address] [address]- 1792 May, [facility] [id number] [place] [address]- 0437 May, [facility] [place] [facility] [address] [id number] [place] [address]- 0897 May, [facility] [place] [facility] [address] [id number] [place] [address]- 2952 Apr, [facility] [place] [facility] [address] [id number] [place] [address]- 1438 Apr, [facility] [place] [facility] [address] [id number] [place] [address]- 2539 Feb, [facility] [place] [facility] [address] [id number] [place] [address]- 0707 Feb, [facility] [place] [facility] [address] [id number] [place] [address]- 6970 Jan, [facility] [place] [facility] [address] [id number] [place] [address]- 0799 Jan, [facility] [place] [facility] [address] [id number] [place] [address]- 8460 Jan, [facility] [place] [facility] [address] [id number] [place] [address]- 3299 Jan, [facility] [place] [facility] [address] [id number] [place] [address]- 3720 Dec, [facility] [place] [facility] [address] [id number] [place] [address]- 2945 Dec, [facility] [place] [facility] [address] [id number] [place] [address]- 7868 Nov, [facility] [place] [facility] [address] [id number] [place] [address]- 0140 Nov, [facility] [place] [facility] [address] [id number] [place] [address]- 0294 Nov, [facility] [place] [facility] [address] [id number] [place] [address]- 3707 Nov, [facility] [address] [id number] [place] [address]- 5365 October, [facility] [place] [facility] [address] [id number] [place] [address]- 0762 October, [facility] [place] [facility] [address] [id number] [place] [address]- 4579 Sep, [facility] [place] [facility] [address] [id number] [place] [address]- 6528 Sep, [facility] [place] [facility] [address] [id number] [place] [address]- 0739 Sep, [facility] [place] [facility] [address] [id number] [place] [address]- 8480 Sep, [facility] [place] [facility] [address] [id number] [place] [address]- 9235 Sep, [facility] [place] [facility] [address] [id number] [place] [address]- 8243 Sep, [facility] [place] [facility] [address] [id number] [place] [address]- 8441 Aug, [facility] [place] [facility] [address] [id number] [place] [address]- 2258 Aug, [facility] [place] [facility] [address] [id number] [place] [address]- 6044 Jul, [facility] [place] [facility] [address] [id number] [place] [address]- 4067 Jul, [facility] [place] [facility] [address] [id number] [place] [address]- 7682 May, [facility] [place] [facility] [address] [id number] [place] [address]- 2005 May, [facility] [place] [facility] [address] [id number] [place] 8599 May, [facility] [place] [facility] [address] [id number] [place] [address]- 6191 May, [facility] [address] [id number] [place] [address]- 1516 May, [facility] [address] [id number] [place] [address]- 2711 May, [facility] [address] [id number] [place] [address]- 4094 Apr, [facility] [place] [facility] [address] [id number] [place] 1037 Apr, [facility] [address] [id number] [place] [address]- 1743 Apr, [facility] [place] [facility] [address] [id number] [place] [address]- 5136 Apr, [facility] [address] [id number] [place] [address]- 6333 Apr, [facility] [place] [facility] [address] [id number] [place] [address]- 3015 Apr, [facility] [address] [id number] [place] [address]- 9526 Feb, [facility] [place] [facility] [address] [id number] [place] [address]- 4800 Feb, [facility] [place] [facility] [address] [id number] [place] [address]- 0847 Feb, [facility] [place] [facility] [address] [id number] [address]- 3019 Feb, [facility] [place] [facility] [address] [id number] [place] [address]- 6194 Jan, [facility] [place] [facility] [address] [id number] [place] [address]- 0638 Dec, [facility] [place] [facility] [address] [id number] [address]- 4919 Dec, [facility] [place] [facility] [address] [id number] [place] [address]- 7642 Dec, [facility] [address] [id number] [place] [address]- 9284 Dec, [facility] [place] [facility] [address] [id number] [place] [address]- 7831 Nov, [facility] [place] [facility] [address] [id number] [place] [address]- 7870 Nov, [facility] [place] [facility] [address] [id number] [place] [address]- 3315 October, [facility] [place] [facility] [address] [id number] [place] [address]- 9936 October, [facility] [address] [id number] [place] [address]- 2138 October, [facility] [address] [id number] [place] [address]- 4757 October, [facility] [address] [id number] [place] [address]- 8137 Sep, [facility] [address] [id number] [place] [address]- 7916 Aug, [facility] [address] [id number] [place] [address]- 6998 Aug, [facility] [place] [facility] [address] [id number] [place] [address]- 4051 15 Aug, 2012 [facility] [place] [facility] [address] [id number] [place] [address]- 2178 Aug, [facility] [place] [facility] [address] [id number] [place] [address]- 8826 Jul, [facility] [place] [facility] [address] [id number] [place] [address]- 9186 Jul, [facility] [place] [facility] [address] [id number] [address]- 7062 Jul, [facility] [place] [facility] [address] [id number] [place] [address]- 7909 Jun, [facility] [place] [facility] [address] [id number] [place] 2993 Jun, [facility] [place] [facility] [address] [id number] [place] [address]- 6139 May, [facility] [place] [facility] [address] [id number] [place] [address]- 5425 May, [facility] [place] [facility] [address] [id number] [place] [address]- 2973 Apr, [facility] [place] [facility] [address] [id number] [place] [address]- 7246 Apr, [facility] [place] [facility] [address] [id number] [place] [address]- 7519 Apr, [facility] [place] [facility] [address] [id number] [place] [address]- 1646 Apr, [facility] [place] [facility] [address] [id number] [place] [address]- 8706 Apr, [facility] [place] [facility] [address] [id number] [place] [address]- 7485 Apr, [facility] [place] [facility] [address] [id number], [place] [address]- 8464 Mar, [facility] [place] [facility] [address] [id number] [address]- 5989 Mar, [facility] [place] [facility] [address] [id number] [place] [address]- 8829 Mar, [facility] [place] [facility] [address] [id number] [place] [address]- 6219 Mar, [facility] [place] [facility] [address] [id number] [place] [address]- 6453 Mar, [facility] [place] [facility] [address] [id number] [place] [address]- 4552 Mar, [facility] [address] [id number] [place] [address]- 4916 Mar, [facility] [place] [facility] [address] [id number] [place] [address] 2546 Feb, [facility] [address] [id number] [place] [address]- 3852 Feb, [facility] [place] [facility] [address] [id number] [place] [address]- 4659 Jan, [facility] [address] [id number] [place] [address]- 8055 Dec, [facility] [address] [id number] [place] [address]- 2547 Dec, [facility] [address] [id number] [place] [address]- 7323 Nov, [facility] [address] [id number] [place] [address]- 3992 Nov, [facility] [address] [id number] [place] [address]- 3440 Nov, [facility] [address] [id number] [place] [address]- 5694 October, [facility] [address] [id number] [place] [address]- 4592 Sep, [facility] [address] [id number] [place] [address]- 6123 16 Sep, 2011 [facility] [place] [facility] [address] [id number] [place] [address]- 0961 Sep, [facility] [place] [facility] [address] [id number] [place] [address]- 0706 Aug, [facility] [place] [facility] [address] [id number] [place] [address]- 7646 Aug, [facility] [place] [facility] [address] [id number] [place] [address]- 5394 20 Aug, 2011 [facility] [place] [facility] [address] [id number] [place] 9006 15 Aug, 2011 [facility] [place] [facility] [address] [id number] [place] [address]- 6116 14 Aug, 2011 [facility] [place] [facility] [address] [id number] [place] [address]- 5216 12 Aug, 2011 [facility] [place] [facility] [address] [id number] [place] [address]- 7002 08 Aug, 2011 [facility] [place] [facility] [address] [id number] [place] [address]- 2064 05 Aug, 2011 [facility] [place] [facility] [address] [id number] [place] [address]- 3596 27 Jul, 2011 [facility] [place] [facility] [address] [id number] [place] [address]- 6140 Jul, [facility] [place] [facility] [address] [id number] [place] [address] Jul, [facility] [place] [facility] [address] [id number] [place] [address] 15 Jul, 2011 [facility] [place] [facility] [address] [id number] [place] [address] Jul, [facility] [place] [facility] [address] [id number] [place] [address] Jul, [facility] [place] [facility] [address] [id number] [place] [address] Jun, [facility] [place] [facility] [address] [id number] [place] [address] Jun, [facility] [place] [facility] [address] [id number] [place] [address] Jun, [facility] [place] [facility] [address] [id number] [place] [address] 02 Jun, 2011 [facility] [address] [id number] [place] [address] 29 May, 2011 [facility] [address] [id number] [place] [address] 28 May, 2011 [facility] [address] [id number] [place] [address] May, [facility] [address] [id number] [place] [address] May, [facility] [address] [id number] [place] [address] May, [facility] [address] [id number] [place] [address] 30 Apr, 2011 [facility] [address] [id number] [place] [address] 14 Apr, 2011 [facility] [address] [id number] [place] [address] 31 Mar, 2011 [facility] [address] [id number] [place] [address] 15 Feb, 2011 [facility] [address] [id number] [place] [address] 12 Feb, 2011 [facility] [address] [id number] [place] [address] May, [facility] [address] [id number] [place] [address] 23 Apr, 2010 [facility] [place] [facility] [address] [id number] [place] [address] 15 Apr, 2010 [facility] [place] [facility] [address] [id number] [place] [address] 15 Apr, 2010 [facility] [address] [id number] [place] [address] Apr, [facility] [address] [facility] [id number] [address] Apr, [facility] [address] [id number] [address] Apr, [facility] [address] [facility] [id number], [place] [address] Mar, [facility] [address] [id number] [address] Mar, [facility] [address] [facility] [id number], [place] [address] Sep, IMMUNIZATIONS No Known Immunizations SOCIAL HISTORY Never Assessed REASON FOR VISIT Medication refill request PLAN OF CARE VITAL SIGNS MEDICATIONS [...] attempts Hospitalization History Ischemic colitis, dementia, generalized debility-[facility] 07/30/17
--- OUTSIDE RECORDS SUMMARY | 2018-06-23 23:16 | XMS REPORT ---
Author Author CARO CAMARA Organization [facility] Address [address] [place] [address] Care Team Providers Care Steward/Stewardess Bath Name Role Phone CARO CAMARA Unavailable PROBLEMS Type Condition ICD9-CM Code TAT07-[place] Code Onset Dates Condition Status SNOMED Code Problem Mood disorder F39 Active 27060745 Problem Dementia F03.90 Active 06166013 Problem Hypertension, benign I10 Active 07727902 Problem Cognitive dysfunction F09 Active 272974992 Problem 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 244794332 Problem Anxiety disorder, unspecified F41.9 Active 619661516 Problem Major depression F32.9 Active [id number] ALLERGIES No Information ENCOUNTERS Encounter Location Date Diagnosis [facility] [id number] [place] [address] 14661- 8574 Jan, [facility] [id number] [place] [address] [id number] Jan, Dental examination Z01.20 [facility] [address] [place] [address] Jan, Dementia F03.90 ; Mood disorder F39 ; Cognitive dysfunction F09 ; Hypertension, benign I10 ; Hypokalemia E87.6 and History of DVT of lower extremity Z86.718 [facility] [address] [place] [address] 76262- 2261 Jan, Anxiety disorder, unspecified F41.9 and Mood disorder F39 [facility] [id number] [place] [address] 95663- 3975 Jan, Mood disorder F39 and Dementia associated with other underlying disease without behavioral disturbance F02.80 [facility] [id number] [place] [address] 28726- 7694 Dec, Mood disorder F39 [facility] [id number], [place] [address] 135[address] Dec, Mood disorder F39 [facility] [address], [place] [address] 32[address] Nov, [facility] [address] [address] Nov, Dementia without behavioral disturbance, unspecified dementia type F03.90 ; Cognitive dysfunction F09 and Major depression F32.9 [facility] [employer] [address] [place] [address] October, Encounter for examination for admission to senior care Z02.2 ; Tardive dyskinesia G24.01 ; Major depression F32.9 ; Anxiety disorder, unspecified F41.9 ; Cognitive dysfunction F09 and Dementia without behavioral disturbance, unspecified dementia type F03.90 [facility] [address], [place] [address] October, [facility] [address] [address] October, [facility] [address] [place] [address] 63888- 9999 Sep, Acute deep vein thrombosis (DVT) of proximal vein of left lower extremity I82.4Y2 [facility] [address] [address] 90[address] Sep, Mood disorder F39 and Dementia associated with other underlying disease without behavioral disturbance F02.80 [facility] [id number] [address] Sep, Mood disorder F39 and Acute deep vein thrombosis (DVT) of proximal vein of left lower extremity I82.4Y2 [facility] [id number] [address] 98[address] Sep, [facility] [email or web address] [address] [place] [id number] Sep, History of DVT (deep vein thrombosis) Z86.718 and Dementia F03.90 [facility] [address] [address] 40[address] Sep, Mood disorder F39 and Dementia without behavioral disturbance, unspecified dementia type F03.90 [facility] [address], [place] [address] 4[address] Aug, [facility] [address] [place] [address] 45588- 3069 Aug, [facility] [id number] [place] [address] [id number] Aug, [facility] [id number] [place] [address] 10192- 8261 Aug, [facility] [address] [place] [address] 14088- 1781 Aug, Acute deep vein thrombosis (DVT) of proximal vein of left lower extremity I82.4Y2 [facility] [employer] [address] [place] [id number] Aug, Left leg swelling M79.89 [facility] [address] [place] [address] 09676- 7062 Aug, Mood disorder F39 and Dementia without behavioral disturbance, unspecified dementia type F03.90 [facility] [address], [place] [address] 5105 Jul, [facility] [address] [place] [address] 85302- 2313 Jul, Dementia without behavioral disturbance, unspecified dementia type F03.90 and Mood disorder F39 [facility] [address] [place] [id number] Jul, Encounter for examination for admission to senior care Z02.2 ; Rectal bleed K62.5 ; Dementia without behavioral disturbance, unspecified dementia type F03.90 ; Hypertension, benign I10 ; Edema R60.9 and Major depression F32.9 [facility] [address] [place] [id number] Jul, [facility] [address], [place] [address] 1037 Apr, Dementia without behavioral disturbance, unspecified dementia type F03.90 and Mood disorder F39 [facility] [address], [place] [address] 2533 Apr, [facility] [id number] [place] [address] 63343- 6874 Feb, Hypertension, benign I10 [facility] [address], [place] [address] 0415 Dec, Major depression F32.9 ; Anxiety disorder, unspecified F41.9 ; Cognitive dysfunction F09 and Dementia without behavioral disturbance, unspecified dementia type F03.90 [facility] [address], [place] [address] 8789 October, Hypertension, benign I10 [facility] [address], [place] [address] 9416 Sep, Major depression F32.9 ; Anxiety disorder, unspecified F41.9 and Cognitive dysfunction F09 [facility] [address], [place] [address]- 4261 Apr, Major depression F32.9 and Cognitive dysfunction F09 [facility] [address], [place] [address]- 0209 Jan, Anxiety disorder, unspecified F41.9 ; Major depression F32.9 and Cognitive dysfunction F09 [facility] [address], [place] [address]- 8891 Jan, [facility] [address], [place] [address]- 4815 Dec, [facility] [address], [place] [address]- 2137 Dec, [facility] [id number] [place] [address] 95278- 6956 Nov, Anxiety disorder, unspecified F41.9 ; Major depression F32.9 and Cognitive dysfunction F09 [facility] [id number] [place] [address] 91659- 3354 October, Dementia without behavioral disturbance, unspecified dementia type F03.90 [facility] [address] [address]- 4667 Sep, Cognitive dysfunction F09 and Edema R60.9 [facility] [id number] [place] [address] 40850- 4339 Sep, Cognitive dysfunction F09 and Edema R60.9 [facility] [id number] [place] [address] 71086- 2290 Aug, Self-care deficit for medication administration R41.89 ; Self-care deficit in patient living alone R46.89 and Cognitive dysfunction F09 [facility] [id number] [place] [address] 03303- 9056 Aug, 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 and Unspecified intracranial injury without loss of consciousness, sequela S06.9X0S [facility] [id number] [place] [address] 73509- 7638 Jul, [facility] [id number] [place] [address] 55821- 7693 Jun, Anxiety disorder, unspecified F41.9 and Major depression F32.9 [facility] [id number] [place] [address] 51837- 8022 Jun, [facility] [address] 30725- 8128 May, [facility] [id number] [place] [address] 67340- 0712 May, Nausea R11.0 [facility] [address] 56546- 9405 Apr, [facility] [address], [place] [address]- 8355 Mar, Major depression F32.9 [facility] [id number] [place] [address] 972416- 9849 Mar, Encounter for immunization Z23 [facility] [id number] [place] [address] 48393- 1351 Mar, Major depression F32.9 and Anxiety disorder, unspecified F41.9 [facility] [id number] [place] [address] 994369- 1033 Dec, Major depression, chronic 296.20 and Anxiety disorder, unspecified 300.00 [facility] [id number] [place] [address] 10991- 6845 October, Hypertension 401.9 [facility] [id number] [place] [address] 30430- 5171 Sep, [facility] [id number] [place] [address] 93718- 8212 Sep, [facility] [id number] [place] [address] 96323- 2899 Jul, [facility] [address], [place] [address]- 9243 Jul, [facility] [id number] [place] [address] 64776- 9817 Jul, [facility] [address] [place] [address] 282378- 6953 May, [facility] [id number] [place] [address] 440340- 8597 May, [facility] [address] 0997 May, [facility] [address] [place] [address] 64086- 6473 May, [facility] [place] [facility] [address] [id number] [place] [address]- 1133 Apr, [facility] [place] [facility] [address] [id number] [place] [address]- 1933 Apr, [facility] [place] [facility] [address] [id number] [place] [address]- 6777 Feb, [facility] [place] [facility] [address] [id number] [place] [address]- 9083 Feb, [facility] [place] [facility] [address] [id number] [place] [address]- 6021 Jan, [facility] [place] [facility] [address] [id number] [place] [address]- 0493 Jan, [facility] [place] [facility] [address] [id number] [place] [address]- 9106 Jan, [facility] [place] [facility] [address] [id number] [place] [address]- 4069 Jan, [facility] [place] [facility] [address] [id number] [place] [address]- 6669 Dec, [facility] [place] [facility] [address] [id number] [place] [address]- 9021 Dec, [facility] [place] [facility] [address] [id number] [place] [address]- 4160 Nov, [facility] [place] [facility] [address] [id number] [address]- 6397 Nov, [facility] [place] [facility] [address] [id number] [place] [address]- 8074 Nov, [facility] [place] [facility] [address] [id number] [place] [address]- 5967 Nov, [facility] [place] [facility] [address] [id number] [place] [address]- 8500 October, [facility] [place] [facility] [address] [id number] [place] [address]- 3618 October, [facility] [address] [id number] [place] [address]- 1392 Sep, [facility] [place] [facility] [address] [id number] [place] [address]- 7577 Sep, [facility] [place] [facility] [address] [id number] [place] [address]- 6618 Sep, [facility] [place] [facility] [address] [id number] [place] [address]- 0021 Sep, [facility] [place] [facility] [address] [id number] [place] [address]- 2926 Sep, [facility] [place] [facility] [address] [id number] [place] [address]- 4134 Sep, [facility] [address] [id number] [place] [address]- 1900 Aug, [facility] [place] [facility] [address] [id number] [place] [address]- 6394 Aug, [facility] [place] [facility] [address] [id number] [place] [address]- 5736 Jul, [facility] [address] [facility] [id number] [place] [address]- 3874 Jul, [facility] [place] [facility] [address] [id number] [place] [address]- 3089 May, [facility] [place] [facility] [address] [id number] [place] [address]- 9355 May, [facility] [place] [facility] [address] [id number] [place] [address]- 3235 May, [facility] [place] [facility] [address] [id number] [place] [address]- 3799 May, [facility] [place] [facility] [address] [id number] [place] [address]- 6539 May, [facility] [place] [facility] [address] [id number] [place] [address]- 7345 May, [facility] [place] [facility] [address] [id number] [place] [address]- 4246 Apr, [facility] [place] [facility] [address] [id number] [place] [address]- 9900 Apr, [facility] [place] [facility] [address] [id number] [place] [address]- 1708 Apr, [facility] [address] [id number] [place] [address]- 4847 Apr, [facility] [place] [facility] [address] [id number] [place] [address]- 8524 Apr, [facility] [place] [facility] [address] [id number] [place] [address]- 1652 Apr, [facility] [place] [facility] [address] [id number] [place] [address]- 8351 Feb, [facility] [place] [facility] [address] [id number] [place] [address]- 4070 Feb, [facility] [place] [facility] [address] [id number] [place] [address]- 4627 Feb, [facility] [place] [facility] [address] [id number] [place] [address] 2543 Feb, [facility] [place] [facility] [address] [id number], [place] [address]- 9113 Jan, [facility] [place] [facility] [address] [id number] [place] [address]- 4012 Dec, [facility] [place] [facility] [address] [id number] [place] [address]- 2146 Dec, [facility] [place] [facility] [address] [id number] [place] [address]- 2546 Dec, [facility] [place] [facility] [address] [id number], [place] [address]- 9986 Dec, [facility] [address] [id number] [place] [address]- 9577 Nov, [facility] [address] [id number], [place] [address]- 2382 Nov, [facility] [address] [id number] [place] [address]- 8284 October, [facility] [address] [id number] [place] [address]- 1847 October, [facility] [address] [id number] [place] [address]- 6709 October, [facility] [address] [id number] [place] [address]- 8396 October, [facility] [address] [facility] [id number] [place] [address]- 4774 Sep, [facility] [address] [id number] [place] [address]- 7770 Aug, [facility] [address] [id number] [place] [address]- 2443 Aug, [facility] [address] [facility] [id number] [place] [address]- 1367 Aug, [facility] [address] [id number], [place] [address]- 1080 Aug, [facility] [address] [id number] [place] [address]- 7030 Jul, [facility] [address] [id number] [place] [address]- 9175 Jul, [facility] [place] [facility] [address] [id number] [place] [address]- 8790 Jul, [facility] [address] [facility] [id number] [place] [address]- 8656 Jun, [facility] [place] [facility] [address] [id number] [place] [address]- 1181 Jun, [facility] [place] [facility] [address] [id number] [place] 3040 May, [facility] [place] [facility] [address] [id number] [place] 0026 May, [facility] [place] [facility] [address] [id number] [place] [address]- 7821 Apr, [facility] [place] [facility] [address] [id number] [place] [address]- 7021 Apr, [facility] [place] [facility] [address] [id number] [place] [address]- 9732 Apr, [facility] [place] [facility] [address] [id number] [place] [address]- 0819 Apr, [facility] [place] [facility] [address] [id number] [place] [address]- 4419 Apr, [facility] [place] [facility] [address] [id number] [place] [address]- 2507 Apr, [facility] [place] [facility] [address] [id number] [place] [address]- 4470 Mar, [facility] [place] [facility] [address] [id number] [place] [address]- 3969 Mar, [facility] [place] [facility] [address] [id number] [place] [address]- 0212 Mar, [facility] [place] [facility] [address] [id number] [place] [address]- 3085 Mar, [facility] [place] [facility] [address] [id number] [place] [address]- 8071 Mar, [facility] [place] [facility] [address] [id number] [place] 9514 Mar, [facility] [place] [facility] [address] [id number] [place] [address]- 9788 Mar, [facility] [place] [facility] [address] [id number] [place] [address]- 8454 18 Feb, 2012 [facility] [place] [facility] [address] [id number] [place] [address]- 3276 04 Feb, 2012 [facility] [place] [facility] [address] [id number] [place] [address] 2546 Jan, [facility] [place] [facility] [address] [id number] [place] [address]- 2452 Dec, [facility] [place] [facility] [address] [id number] [place] [address]- 5879 Dec, [facility] [place] [facility] [address] [id number] [place] [address]- 8956 Nov, [facility] [place] [facility] [address] [id number] [place] [address]- 3191 Nov, [facility] [place] [facility] [address] [id number], [place] [address]- 8057 Nov, [facility] [place] [facility] [address] [id number] [place] [address]- 6848 October, [facility] [place] [facility] [address] [id number] [place] [address]- 5634 Sep, [facility] [place] [facility] [address] [id number], [place] [address]- 1716 Sep, [facility] [place] [facility] [address] [id number], [place] [address]- 5851 Sep, [facility] [place] [facility] [address] [id number] [place] [address]- 7372 Aug, [facility] [place] [facility] [address] [id number] [place] [address]- 5565 Aug, [facility] [place] [facility] [address] [id number] [place] [address]- 3371 Aug, [facility] [place] [facility] [address] [id number] [place] [address]- 3026 15 Aug, 2011 [facility] [address] [id number] [place] [address]- 4816 14 Aug, 2011 [facility] [place] [facility] [address] [id number] [place] [address] 2546 12 Aug, 2011 [facility] [place] [facility] [address] [id number] [place] [address]- 3056 08 Aug, 2011 [facility] [place] [facility] [address] [id number] [place] [address] 2546 05 Aug, 2011 [facility] [place] [facility] [address] [id number] [place] [address]- 6766 27 Jul, 2011 [facility] [place] [facility] [address] [id number] [place] [address]- 8906 22 Jul, 2011 [facility] [place] [facility] [address] [id number] [place] [address]- 9856 20 Jul, 2011 [facility] [place] [facility] [address] [id number] [place] [address]- 0178 15 Jul, 2011 [facility] [place] [facility] [address] [id number] [place] [address]- 2906 06 Jul, 2011 [facility] [place] [facility] [address] [facility] [id number] [place] [address]- 7856 Jul, [facility] [place] [facility] [address] [id number] [place] [address] Jun, [facility] [place] [facility] [address] [id number] [place] [address] Jun, [facility] [place] [facility] [address] [id number] [place] [address] Jun, [facility] [place] [facility] [address] [id number] [place] [address] Jun, [facility] [place] [facility] [address] [facility] [id number] [place] [address] 29 May, 2011 [facility] [place] [facility] [address] [id number] [place] [address] 28 May, 2011 [facility] [place] [facility] [address] [id number] [place] [address] May, [facility] [place] [facility] [address] [id number] [place] [address] 12 May, 2011 [facility] [place] [facility] [address] [id number] [place] [address] 03 May, 2011 [facility] [place] [facility] [address] [id number] [place] [address] 30 Apr, 2011 [facility] [place] [facility] [address] [id number] [place] [address] 14 Apr, 2011 [facility] [place] [facility] [address] [id number] [place] [address] 31 Mar, 2011 [facility] [place] [facility] [address] [id number] [place] [address] 15 Feb, 2011 [facility] [place] [facility] [address] [id number] [place] [address] 12 Feb, 2011 [facility] [place] [facility] [address] [id number] [place] [address] May, [facility] [place] [facility] [address] [id number], [place] [address] 23 Apr, 2010 [facility] [place] [facility] [address] [id number], [place] [address] 15 Apr, 2010 [facility] [place] [facility] [address] [id number] [place] [address] 15 Apr, 2010 [facility] [place] [facility] [address] [id number], [place] [address] 15 Apr, 2010 [facility] [place] [facility] [address] [id number] [place] [address] 02 Apr, 2010 [facility] [place] [facility] [address] [facility] [id number] [place] [address] Apr, [facility] [address] [facility] [id number], [place] [address] Mar, [facility] [address] [facility] [id number], [place] [address] Mar, [facility] [address] [facility] [id number][place] [address] Sep, IMMUNIZATIONS No Known Immunizations SOCIAL HISTORY Never Assessed REASON FOR VISIT Referral to Psyche PLAN OF CARE VITAL SIGNS MEDICATIONS Unknown [...] attempts Hospitalization History Ischemic colitis, dementia, generalized debility-[facility] 07/30/17
--- OUTSIDE RECORDS SUMMARY | 2018-06-23 23:16 | XMS REPORT ---
Author Author CARO CAMARA [facility] Address [address] [place] [address] Care Team Providers Care Se[employer]or Name Role Phone CARO CAMARA Unavailable PROBLEMS Type Condition ICD9-CM Code [id number] Code Onset Dates Condition Status SNOMED Code Problem Mood disorder F39 Active 00919832 Problem Dementia without behavioral disturbance, unspecified dementia type F03.90 Active 37114077 Problem Hypertension, benign I10 Active 89213344 Problem Cognitive dysfunction F09 Active 949137621 Problem 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 943771997 Problem Anxiety disorder, unspecified F41.9 Active 736421214 Problem Major depression F32.9 Active 914646412 ALLERGIES No Information ENCOUNTERS Encounter Location Date Diagnosis [facility] [id number] [place] [address] 02061- 5817 Jan, [facility] [id number] [place] [address] 16163- 1175 Jan, [facility] [id number] [place] [address] 80978- 2944 Jan, Anxiety disorder, unspecified F41.9 and Mood disorder F39 [facility] [id number] [place] [address] 18175- 0842 Jan, Mood disorder F39 and Dementia associated with other underlying disease without behavioral disturbance F02.80 [facility] [id number] [place] [address] 86046- 8344 Dec, Mood disorder F39 [facility] [id number] [place] [address] 19825- 4398 Dec, Mood disorder F39 [facility] [id number] [place] [address] 27295- 7484 Nov, [facility] [address] [address] Nov, Dementia without behavioral disturbance, unspecified dementia type F03.90 ; Cognitive dysfunction F09 and Major depression F32.9 [facility] [employer] [address] [place] [address] October, Encounter for examination for admission to long term Z02.2 ; Tardive dyskinesia G24.01 ; Major depression F32.9 ; Anxiety disorder, unspecified F41.9 ; Cognitive dysfunction F09 and Dementia without behavioral disturbance, unspecified dementia type F03.90 [facility] [id number] [place] [address] 13325- 7106 October, [facility] [id number] [place] [address] 57717- 5052 October, [facility] [id number] [place] [address] 51806- 6383 Sep, Acute deep vein thrombosis (DVT) of proximal vein of left lower extremity I82.4Y2 [facility] [id number] [place] [address] 91670- 8978 Sep, Mood disorder F39 and Dementia associated with other underlying disease without behavioral disturbance F02.80 [facility] [address] [address] 9790 Sep, Mood disorder F39 and Acute deep vein thrombosis (DVT) of proximal vein of left lower extremity I82.4Y2 [facility] [address] [address] 2[address] Sep, [facility] [email or web address] [address] [place] [id number] Sep, History of DVT (deep vein thrombosis) Z86.718 and Dementia F03.90 [facility] [id number] [address] 5140 Sep, Mood disorder F39 and Dementia without behavioral disturbance, unspecified dementia type F03.90 [facility] [address] [address] 8718 Aug, [facility] [id number] [place] [address] 20480- 9651 Aug, [facility] [id number] [place] [address] [id number] Aug, [facility] [id number] [place] [address] 31415- 6285 Aug, [facility] [id number] [place] [address] 60436- 2108 Aug, Acute deep vein thrombosis (DVT) of proximal vein of left lower extremity I82.4Y2 [facility] [employer] [address] [place] [id number] Aug, Left leg swelling M79.89 [facility] [address] [place] [address] 41188- 7397 Aug, Mood disorder F39 and Dementia without behavioral disturbance, unspecified dementia type F03.90 [facility] [address] [place] [address] 03470- 6229 Jul, [facility] [id number] [place] [address] 38575- 1554 Jul, Dementia without behavioral disturbance, unspecified dementia type F03.90 and Mood disorder F39 [facility] [employer] [address] [place] [id number] Jul, Encounter for examination for admission to long term Z02.2 ; Rectal bleed K62.5 ; Dementia without behavioral disturbance, unspecified dementia type F03.90 ; Hypertension, benign I10 ; Edema R60.9 and Major depression F32.9 [facility] [id number] [place] [id number] Jul, [facility] [address] [address] 0617 Apr, Dementia without behavioral disturbance, unspecified dementia type F03.90 and Mood disorder F39 [facility] [address] [address] 7216 Apr, [facility] [id number] [place] [address] [id number]- 3296 Feb, Hypertension, benign I10 [facility] [address] [address] Dec, Major depression F32.9 ; Anxiety disorder, unspecified F41.9 ; Cognitive dysfunction F09 and Dementia without behavioral disturbance, unspecified dementia type F03.90 [facility] [address] [place] [address] 61234- 4246 October, Hypertension, benign I10 [facility] [address] [place] [address] 82111- 6831 Sep, Major depression F32.9 ; Anxiety disorder, unspecified F41.9 and Cognitive dysfunction F09 [facility] [address] [place] [address] 21037- 1742 Apr, Major depression F32.9 and Cognitive dysfunction F09 [facility] [id number] [place] [address] 18976- 8190 Jan, Anxiety disorder, unspecified F41.9 ; Major depression F32.9 and Cognitive dysfunction F09 [facility] [address] [address]- 1838 Jan, [facility] [id number] [place] [address] 29350- 3389 Dec, [facility] [address] [address]- 6490 Dec, [facility] [id number] [place] [address] [id number]- 4281 Nov, Anxiety disorder, unspecified F41.9 ; Major depression F32.9 and Cognitive dysfunction F09 [facility] [id number] [place] [address] 24166- 6532 October, Dementia without behavioral disturbance, unspecified dementia type F03.90 [facility] [id number] [place] [address] 72373- 2672 Sep, Cognitive dysfunction F09 and Edema R60.9 [facility] [id number] [place] [address] 52107- 9713 Sep, Cognitive dysfunction F09 and Edema R60.9 [facility] [id number] [place] [address] 62751- 6535 Aug, Self-care deficit for medication administration R41.89 ; Self-care deficit in patient living alone R46.89 and Cognitive dysfunction F09 [facility] [id number] [place] [address] 57184- 7236 Aug, 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 and Unspecified intracranial injury without loss of consciousness, sequela S06.9X0S [facility] [id number] [place] [address] 09762- 2816 Jul, [facility] [address] 15967- 3256 Jun, Anxiety disorder, unspecified F41.9 and Major depression F32.9 [facility] [id number] [place] [address] 58831- 9030 Jun, [facility] [id number] [place] [address] 41186- 8921 May, [facility] [id number] [place] [address] 56879- 5267 May, Nausea R11.0 [facility] [address] 59175- 8020 Apr, [facility] [id number] [place] [address] 83319- 4470 Mar, Major depression F32.9 [facility] [id number]- 2546 Mar, Encounter for immunization Z23 [facility] [id number] [place] [address] 28575- 8410 Mar, Major depression F32.9 and Anxiety disorder, unspecified F41.9 [facility] [address] [address]- 1145 Dec, Major depression, chronic 296.20 and Anxiety disorder, unspecified 300.00 [facility] [id number] [place] [address] 93119- 8061 October, Hypertension 401.9 [facility] [id number] [place] [address] 47443- 5348 Sep, [facility] [id number] [place] [address] 69668- 9388 Sep, [facility] [id number] [place] [address] 39603- 2492 18 Jul, 2014 [facility] [address] [address]- 8945 Jul, [facility] [address] [address]- 9027 Jul, [facility] [address], [place] [address]- 7325 May, [facility] [address] [address]- 4034 May, [facility] [address], [place] [address]- 7301 May, [facility] [address], [place] [address]- 7111 May, [facility] [address], [place] [address]- 7801 Apr, [facility] [address] [address]- 5256 Apr, [facility] [place] [facility] [address] [id number] [place] [address]- 5940 Feb, [facility] [place] [facility] [address] [id number] [place] [address]- 6214 Feb, [facility] [place] [facility] [address] [id number] [place] [address]- 7812 Jan, [facility] [place] [facility] [address] [id number] [place] [address]- 6245 Jan, [facility] [place] [facility] [address] [id number] [place] [address]- 3385 Jan, [facility] [place] [facility] [address] [id number] [place] [address]- 6076 Jan, [facility] [place] [facility] [address] [id number] [place] [address]- 2835 Dec, [facility] [place] [facility] [address] [id number] [place] [address]- 1005 Dec, [facility] [place] [facility] [address] [id number] [place] [address]- 7579 Nov, [facility] [place] [facility] [address] [id number] [place] [address]- 9612 Nov, [facility] [place] [facility] [address] [id number] [place] [address]- 3675 Nov, [facility] [place] [facility] [address] [id number] [address]- 4047 Nov, [facility] [place] [facility] [address] [id number] [place] [address]- 6482 October, [facility] [place] [facility] [address] [id number] [place] [address]- 9830 October, [facility] [place] [facility] [address] [id number] [place] [address]- 2647 Sep, [facility] [place] [facility] [address] [id number] [place] [address]- 9515 Sep, [facility] [address] [id number] [place] [address]- 4523 Sep, [facility] [place] [facility] [address] [id number] [place] [address]- 1096 Sep, [facility] [place] [facility] [address] [id number] [place] [address]- 6627 Sep, [facility] [place] [facility] [address] [id number] [place] [address]- 8205 Sep, [facility] [place] [facility] [address] [id number] [place] [address]- 8486 Aug, [facility] [place] [facility] [address] [id number] [place] [address]- 3427 Aug, [facility] [place] [facility] [address] [id number] [place] [address]- 8882 Jul, [facility] [place] [facility] [address] [id number] [place] [address]- 3900 Jul, [facility] [place] [facility] [address] [id number] [place] [address]- 7779 May, [facility] [place] [facility] [address] [id number] [place] [address]- 6708 May, [facility] [place] [facility] [address] [id number] [place] [address]- 3754 May, [facility] [place] [facility] [address] [id number] [place] [address]- 6292 May, [facility] [place] [facility] [address] [id number] [place] [address]- 3351 May, [facility] [place] [facility] [address] [id number] [place] [address]- 7585 May, [facility] [place] [facility] [address] [id number] [place] [address]- 2743 Apr, [facility] [place] [facility] [address] [id number] [place] [address]- 8886 Apr, [facility] [place] [facility] [address] [id number] [place] [address]- 9954 Apr, [facility] [place] [facility] [address] [id number] [place] [address]- 4590 Apr, [facility] [place] [facility] [address] [id number] [place] [address]- 0329 Apr, [facility] [address] [id number] [place] [address]- 8156 Apr, [facility] [place] [facility] [address] [id number] [place] [address]- 6342 Feb, [facility] [address] [id number] [place] [address]- 8249 Feb, [facility] [address] [id number] [place] [address]- 9458 Feb, [facility] [address] [id number] [place] [address]- 3535 Feb, [facility] [place] [facility] [address] [id number] [place] [address]- 6797 Jan, [facility] [place] [facility] [address] [id number] [place] [address]- 9044 Dec, [facility] [place] [facility] [address] [id number], [place] [address]- 7450 Dec, [facility] [place] [facility] [address] [id number] [place] [address]- 8136 Dec, [facility] [place] [facility] [address] [id number] [place] [address]- 2134 Dec, [facility] [place] [facility] [address] [id number] [place] [address]- 3559 Nov, [facility] [place] [facility] [address] [id number], [place] [address]- 1938 Nov, [facility] [address] [id number] [place] [address]- 7154 October, [facility] [address] [id number] [place] [address]- 9825 October, [facility] [address] [id number] [place] [address]- 0467 October, [facility] [address] [id number] [place] [address]- 4018 October, [facility] [address] [id number] [place] [address]- 7249 Sep, [facility] [address] [id number] [place] [address]- 5591 Aug, [facility] [address] [id number] [place] [address]- 9847 Aug, [facility] [address] [id number] [place] [address]- 3627 Aug, [facility] [address] [id number] [place] [address]- 7341 Aug, [facility] [address] [id number] [place] [address]- 6685 Jul, [facility] [address] [id number], [place] [address]- 6039 Jul, [facility] [place] [facility] [address] [id number] [place] [address]- 8378 Jul, [facility] [place] [facility] [address] [id number] [place] [address]- 2306 Jun, [facility] [place] [facility] [address] [id number] [place] [address]- 5865 Jun, [facility] [place] [facility] [address] [facility] [id number] [place] [address]- 1464 May, [facility] [place] [facility] [address] [id number] [place] [address]- 2961 May, [facility] [place] [facility] [address] [id number] [place] 4367 Apr, [facility] [place] [facility] [address] [id number] [place] 2374 Apr, [facility] [place] [facility] [address] [id number] [place] [address]- 4570 Apr, [facility] [place] [facility] [address] [id number] [place] [address]- 0248 Apr, [facility] [place] [facility] [address] [id number] [place] [address]- 5453 Apr, [facility] [place] [facility] [address] [id number] [place] [address]- 1337 Apr, [facility] [place] [facility] [address] [id number] [place] [address]- 6014 Mar, [facility] [place] [facility] [address] [id number] [place] [address]- 7019 Mar, [facility] [place] [facility] [address] [id number] [place] [address]- 5172 Mar, [facility] [place] [facility] [address] [id number] [place] [address]- 2328 Mar, [facility] [place] [facility] [address] [id number] [place] [address]- 5728 Mar, [facility] [place] [facility] [address] [id number] [place] [address]- 9464 Mar, [facility] [place] [facility] [address] [id number] [place] [address]- 9730 Mar, [facility] [place] [facility] [address] [id number] [place] [address]- 5956 18 Feb, 2012 [facility] [place] [facility] [address] [id number] [place] [address]- 1520 Feb, [facility] [place] [facility] [address] [id number] [place] [address]- 5192 Jan, [facility] [place] [facility] [address] [id number] [place] [address]- 7696 24 Dec, 2011 [facility] [place] [facility] [address] [id number] [place] [address]- 3415 Dec, [facility] [place] [facility] [address] [id number] [place] [address]- 5409 Nov, [facility] [place] [facility] [address] [id number] [place] [address]- 8950 Nov, [facility] [place] [facility] [address] [id number] [place] [address]- 2657 Nov, [facility] [place] [facility] [address] [id number] [place] [address]- 4499 October, [facility] [place] [facility] [address] [id number] [place] [address]- 4634 Sep, [facility] [place] [facility] [address] [id number] [place] [address]- 9125 16 Sep, 2011 [facility] [place] [facility] [address] [id number] [place] [address]- 2826 Sep, [facility] [place] [facility] [address] [id number] [place] [address]- 6755 26 Aug, 2011 [facility] [place] [facility] [address] [id number], [place] [address]- 8799 21 Aug, 2011 [facility] [place] [facility] [address] [id number] [place] [address]- 6032 20 Aug, 2011 [facility] [place] [facility] [address] [id number] [place] [address]- 8389 15 Aug, 2011 [facility] [place] [facility] [address] [id number] [place] [address]- 9865 14 Aug, 2011 [facility] [place] [facility] [address] [id number] [place] [address]- 7217 12 Aug, 2011 [facility] [address] [id number] [place] [address]- 7376 08 Aug, 2011 [facility] [place] [facility] [address] [id number] [place] [address] 2546 05 Aug, 2011 [facility] [address] [id number] [place] [address]- 9926 27 Jul, 2011 [facility] [place] [facility] [address] [id number] [place] [address] 2546 Jul, [facility] [place] [facility] [address] [id number] [place] [address]- 0476 Jul, [facility] [place] [facility] [address] [id number] [place] [address]- 4246 15 Jul, 2011 [facility] [place] [facility] [address] [id number] [place] [address] 2546 Jul, [facility] [address] [id number] [place] [address]- 6848 Jul, [facility] [place] [facility] [address] [id number] [place] [address]- 8098 Jun, [facility] [address] [facility] [id number] [place] [address]- 0000 Jun, [facility] [place] [facility] [address] [id number] [place] [address] 2546 Jun, [facility] [place] [facility] [address] [id number] [place] [address] Jun, [facility] [place] [facility] [address] [id number] [place] [address] May, [facility] [place] [facility] [address] [id number] [place] [address] May, [facility] [place] [facility] [address] [id number] [place] [address] May, [facility] [place] [facility] [address] [id number] [place] [address] 12 May, 2011 [facility] [place] [facility] [address] [id number] [place] [address] 03 May, 2011 [facility] [place] [facility] [address] [id number] [place] [address] 30 Apr, 2011 [facility] [place] [facility] [address] [id number] [place] [address] 14 Apr, 2011 [facility] [place] [facility] [address] [id number] [place] [address] 31 Mar, 2011 [facility] [place] [facility] [address] [id number] [place] [address] 15 Feb, 2011 [facility] [place] [facility] [address] [id number] [place] [address] Feb, [facility] [place] [facility] [address] [id number] [place] [address] May, [facility] [place] [facility] [address] [id number] [place] [address] Apr, [facility] [place] [facility] [address] [id number], [place] [address] 15 Apr, 2010 [facility] [place] [facility] [address] [id number], [place] [address] Apr, [facility] [place] [facility] [address] [id number], [place] [address] 15 Apr, 2010 [facility] [place] [facility] [address] [id number] [place] [address] Apr, [facility] [place] [facility] [address] [id number], [place] [address] Apr, [facility] [place] [facility] [address] [id number] [place] [address] Mar, [facility] [place] [facility] [address] [facility] [id number] [place] [address] 12 Mar, 2010 [facility] [address] [facility] [id number] [place] [address] 10 Sep, 2009 IMMUNIZATIONS No Known Immunizations SOCIAL HISTORY Never Assessed REASON FOR VISIT tremors PLAN OF CARE Activity Details Follow Up prn Reason: VITAL SIGNS MEDICATIONS Medication Instructions Dosage Frequency Start Date End Date Duration Status Tylenol 325 MG Orally every 4 hrs 2 tablets as needed 4h 14 Aug, 2017 Active Lovastatin 20 mg Orally Once a day 1 tablet with a meal 24h 30 days Active Lisinopril 10 mg Orally Once a day 1 tablet 24h 30 days Active Nicoderm CQ 14 MG/24HR Transdermal Once a day 1 patch to skin 24h Not-Taking Pantoprazole Sodium 40 mg Orally Once a day 1 tablet 24h 30 days Active Trihexyphenidyl HCl 2 MG Orally twice a day 0.5 tablet 12h 28 Jul, 2017 Active BusPIRone HCl 10 mg Orally Twice a day 1 tablet 12h Active Seroquel 300 MG Orally Once a day 1 tablet 24h 05 Sep, 2017 Active Eliquis 5 mg Orally 2 times a day 1 tablet 12h 06 Aug, 2017 30 days Active Ibuprofen 400 mg Orally every 6hrs 1 tablet with food or milk as needed October, Active RESULTS No Results PROCEDURES Procedure Date Ordered Result Body Site [facility] VISIT ESTABLISHED PATIENT October 15, 2017 INSTRUCTIONS MEDICATIONS ADMINISTERED No Known Medications MEDICAL [...]
--- OUTSIDE RECORDS SUMMARY | 2018-06-23 23:17 | XMS REPORT ---
Author Author CARO CAMARA [facility] Address [address] [place] [address] Care Team Providers Care Human Performance Consultant Name Role Phone CARO CAMARA Unavailable PROBLEMS Type Condition ICD9-CM Code ONI90-BK Code Onset Dates Condition Status SNOMED Code Problem Mood disorder F39 Active 70114466 Problem Dementia without behavioral disturbance, unspecified dementia type F03.90 Active 38012794 Problem Hypertension, benign I10 Active 01868094 Problem Cognitive dysfunction F09 Active 628889279 Problem 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 152860258 Problem Anxiety disorder, unspecified F41.9 Active 841964666 Problem Major depression F32.9 Active 135035783 ALLERGIES No Information ENCOUNTERS Encounter Location Date Diagnosis [facility] [id number] [place] [address] 14256- 2682 Jan, [facility] [id number] [place] [address] 67039- 4429 Jan, [facility] [id number] [place] [address] 96994- 6570 Jan, Anxiety disorder, unspecified F41.9 and Mood disorder F39 [facility] [id number] [place] [address] 69560- 7641 Jan, Mood disorder F39 and Dementia associated with other underlying disease without behavioral disturbance F02.80 [facility] [id number] [place] [address] 48868- 2719 Dec, Mood disorder F39 [facility] [id number] [place] [address] 05502- 1263 Dec, Mood disorder F39 [facility] [id number] [place] [address] 33328- 9044 Nov, [facility] [address], [place] [address] 6341 Nov, Dementia without behavioral disturbance, unspecified dementia type F03.90 ; Cognitive dysfunction F09 and Major depression F32.9 [facility] [address] [place] [address] October, Encounter for examination for admission to long-term Z02.2 ; Tardive dyskinesia G24.01 ; Major depression F32.9 ; Anxiety disorder, unspecified F41.9 ; Cognitive dysfunction F09 and Dementia without behavioral disturbance, unspecified dementia type F03.90 [facility] [id number] [place] [address] 46406- 6602 October, [facility] [id number] [place] [address] 05390- 1414 October, [facility] [id number] [place] [address] 06116- 0162 Sep, Acute deep vein thrombosis (DVT) of proximal vein of left lower extremity I82.4Y2 [facility] [id number] [place] [address] 88300- 5857 Sep, Mood disorder F39 and Dementia associated with other underlying disease without behavioral disturbance F02.80 [facility] [address], [place] [address] 4667 Sep, Mood disorder F39 and Acute deep vein thrombosis (DVT) of proximal vein of left lower extremity I82.4Y2 [facility] [address] [address] 7702 Sep, [facility] [address] [place] [id number] Sep, History of DVT (deep vein thrombosis) Z86.718 and Dementia F03.90 [facility] [id number] [address] 57[address] Sep, Mood disorder F39 and Dementia without behavioral disturbance, unspecified dementia type F03.90 [facility] [address] [address] Aug, [facility] [id number] [place] [address] 09620- 1636 Aug, [facility] [id number] [place] [address] [id number] Aug, [facility] [id number] [place] [address] 37272- 2215 Aug, [facility] [id number] [place] [address] 91505- 7845 Aug, Acute deep vein thrombosis (DVT) of proximal vein of left lower extremity I82.4Y2 [facility] [address] [place] [id number] Aug, Left leg swelling M79.89 [facility] [id number] [place] [address] 04712- 0747 Aug, Mood disorder F39 and Dementia without behavioral disturbance, unspecified dementia type F03.90 [facility] [id number] [place] [address] 90567- 0671 Jul, [facility] [id number] [place] [address] 22036- 1748 Jul, Dementia without behavioral disturbance, unspecified dementia type F03.90 and Mood disorder F39 [facility] [address] [place] [id number] Jul, Encounter for examination for admission to long-term Z02.2 ; Rectal bleed K62.5 ; Dementia without behavioral disturbance, unspecified dementia type F03.90 ; Hypertension, benign I10 ; Edema R60.9 and Major depression F32.9 [facility] [id number] [place] [address] [id number] Jul, [facility] [address], [place] [address]- 4635 Apr, Dementia without behavioral disturbance, unspecified dementia type F03.90 and Mood disorder F39 [facility] [address] [address] 3953 Apr, [facility] [id number] [place] [address] [id number]- 7236 Feb, Hypertension, benign I10 [facility] [address] [address] 3946 Dec, Major depression F32.9 ; Anxiety disorder, unspecified F41.9 ; Cognitive dysfunction F09 and Dementia without behavioral disturbance, unspecified dementia type F03.90 [facility] [id number] [place] [address] 56655- 1516 October, Hypertension, benign I10 [facility] [id number] [place] [address] 39350- 0618 Sep, Major depression F32.9 ; Anxiety disorder, unspecified F41.9 and Cognitive dysfunction F09 [facility] [id number] [place] [address] 76764- 9043 Apr, Major depression F32.9 and Cognitive dysfunction F09 [facility] [id number] [place] [address] 46655- 7795 Jan, Anxiety disorder, unspecified F41.9 ; Major depression F32.9 and Cognitive dysfunction F09 [facility] [address] [address]- 1095 Jan, [facility] [id number] [place] [address] 29251- 1154 Dec, [facility] [address], [place] [address]- 5531 Dec, [facility] [id number] [place] [address] [id number]- 2422 Nov, Anxiety disorder, unspecified F41.9 ; Major depression F32.9 and Cognitive dysfunction F09 [facility] [id number] [place] [address] 96109- 6719 October, Dementia without behavioral disturbance, unspecified dementia type F03.90 [facility] [id number] [place] [address] 22505- 7835 Sep, Cognitive dysfunction F09 and Edema R60.9 [facility] [id number] [place] [address] 27793- 6466 Sep, Cognitive dysfunction F09 and Edema R60.9 [facility] [id number] [place] [address] 49161- 4082 Aug, Self-care deficit for medication administration R41.89 ; Self-care deficit in patient living alone R46.89 and Cognitive dysfunction F09 [facility] [id number] [place] [address] 37329- 8809 Aug, 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 and Unspecified intracranial injury without loss of consciousness, sequela S06.9X0S [facility] [id number] [place] [address] 21648- 1591 Jul, [facility] [address] 15448- 4566 Jun, Anxiety disorder, unspecified F41.9 and Major depression F32.9 [facility] [id number] [place] [address] 94103- 5453 Jun, [facility] [id number] [place] [address] 30434- 5633 May, [facility] [id number] [place] [address] 72545- 3129 May, Nausea R11.0 [facility] [address] 29179- 0694 Apr, [facility] [id number] [place] [address] 70547- 2056 Mar, Major depression F32.9 [facility] [address] [address]6762- 2546 Mar, Encounter for immunization Z23 [facility] [id number] [place] [address] 58312- 5459 Mar, Major depression F32.9 and Anxiety disorder, unspecified F41.9 [facility] [address] [address]- 5756 Dec, Major depression, chronic 296.20 and Anxiety disorder, unspecified 300.00 [facility] [id number] [place] [address] 60007- 4722 October, Hypertension 401.9 [facility] [id number] [place] [address] 46741- 6601 Sep, [facility] [id number] [place] [address] 00182- 1726 Sep, [facility] [id number] [place] [address] 88995- 5608 18 Jul, 2014 [facility] [address], [place] [address]- 9787 Jul, [facility] [address], [place] [address]- 7646 Jul, [facility] [address] [address]- 0249 May, [facility] [address], [place] [address]- 9722 May, [facility] [address], [place] [address]- 4448 May, [facility] [address], [place] [address]- 8898 May, [facility] [address], [place] [address]- 6338 Apr, [facility] [address], [place] [address]- 4041 Apr, [facility] [place] [facility] [address] [id number] [place] [address]- 9275 Feb, [facility] [place] [facility] [address] [id number] [place] [address]- 6117 Feb, [facility] [place] [facility] [address] [id number] [place] [address]- 8835 Jan, [facility] [place] [facility] [address] [id number] [place] [address]- 3792 Jan, [facility] [place] [facility] [address] [id number] [place] [address]- 7128 Jan, [facility] [place] [facility] [address] [id number] [place] [address]- 6703 Jan, [facility] [place] [facility] [address] [id number] [place] [address]- 3022 Dec, [facility] [place] [facility] [address] [id number] [place] [address]- 2132 Dec, [facility] [place] [facility] [address] [id number] [place] [address]- 5244 Nov, [facility] [place] [facility] [address] [id number] [place] [address]- 8155 Nov, [facility] [place] [facility] [address] [id number] [place] [address]- 8896 Nov, [facility] [place] [facility] [address] [id number] [address]- 1869 Nov, [facility] [place] [facility] [address] [id number] [place] [address]- 5761 October, [facility] [place] [facility] [address] [id number] [place] [address]- 2177 October, [facility] [place] [facility] [address] [id number] [place] [address]- 9429 Sep, [facility] [place] [facility] [address] [id number] [place] [address]- 9513 Sep, [facility] [address] [id number] [place] [address]- 0815 Sep, [facility] [place] [facility] [address] [id number] [place] [address]- 8593 Sep, [facility] [place] [facility] [address] [id number] [place] [address]- 0679 Sep, [facility] [place] [facility] [address] [id number] [place] [address]- 6266 Sep, [facility] [place] [facility] [address] [id number] [place] [address]- 4524 Aug, [facility] [place] [facility] [address] [id number] [place] [address]- 9121 Aug, [facility] [place] [facility] [address] [id number] [place] [address]- 6554 Jul, [facility] [place] [facility] [address] [id number] [place] [address]- 7570 Jul, [facility] [place] [facility] [address] [id number] [place] [address]- 4547 May, [facility] [place] [facility] [address] [id number] [place] [address]- 5911 May, [facility] [place] [facility] [address] [id number] [place] [address]- 6599 May, [facility] [place] [facility] [address] [id number] [place] [address]- 9036 May, [facility] [place] [facility] [address] [id number] [place] [address]- 0373 May, [facility] [place] [facility] [address] [id number] [place] [address]- 8484 May, [facility] [place] [facility] [address] [id number] [place] [address]- 7957 Apr, [facility] [place] [facility] [address] [id number] [place] [address]- 9204 Apr, [facility] [place] [facility] [address] [id number] [place] [address]- 7885 Apr, [facility] [place] [facility] [address] [id number] [place] [address]- 7696 Apr, [facility] [place] [facility] [address] [id number] [place] [address]- 1264 Apr, [facility] [address] [id number] [place] [address]- 4609 Apr, [facility] [place] [facility] [address] [id number] [place] [address]- 2212 Feb, [facility] [address] [id number] [place] [address]- 6456 Feb, [facility] [address] [id number] [place] [address]- 5520 Feb, [facility] [address] [id number] [place] [address]- 4556 Feb, [facility] [place] [facility] [address] [id number] [place] [address]- 5353 Jan, [facility] [place] [facility] [address] [id number] [place] [address]- 0639 Dec, [facility] [place] [facility] [address] [id number], [place] [address]- 9329 Dec, [facility] [place] [facility] [address] [id number] [place] [address]- 9033 Dec, [facility] [place] [facility] [address] [id number] [place] [address]- 8787 Dec, [facility] [place] [facility] [address] [id number] [place] [address]- 4894 Nov, [facility] [place] [facility] [address] [id number], [place] [address]- 4073 Nov, [facility] [address] [id number] [place] [address]- 2565 October, [facility] [address] [id number] [place] [address]- 3839 October, [facility] [address] [id number] [place] [address]- 0607 October, [facility] [address] [id number] [place] [address]- 5041 October, [facility] [address] [id number] [place] [address]- 4246 Sep, [facility] [address] [id number] [place] [address]- 9148 Aug, [facility] [address] [id number] [place] [address]- 0200 Aug, [facility] [address] [id number] [place] [address]- 6771 Aug, [facility] [address] [id number] [place] [address]- 1271 Aug, [facility] [address] [id number] [place] [address]- 3735 Jul, [facility] [address] [id number], [place] [address]- 5838 Jul, [facility] [place] [facility] [address] [id number] [place] [address]- 0746 Jul, [facility] [place] [facility] [address] [id number] [place] [address]- 4200 Jun, [facility] [place] [facility] [address] [id number] [place] [address]- 5487 Jun, [facility] [place] [facility] [address] [facility] [id number] [place] [address]- 3994 May, [facility] [place] [facility] [address] [id number] [place] [address]- 3364 May, [facility] [place] [facility] [address] [id number] [place] 7739 Apr, [facility] [place] [facility] [address] [id number] [place] 1713 Apr, [facility] [place] [facility] [address] [id number] [place] [address]- 1022 Apr, [facility] [place] [facility] [address] [id number] [place] [address]- 5538 Apr, [facility] [place] [facility] [address] [id number] [place] [address]- 0726 Apr, [facility] [place] [facility] [address] [id number] [place] [address]- 4628 Apr, [facility] [place] [facility] [address] [id number] [place] [address]- 9634 Mar, [facility] [place] [facility] [address] [id number] [place] [address]- 4493 Mar, [facility] [place] [facility] [address] [id number] [place] [address]- 7997 Mar, [facility] [place] [facility] [address] [id number] [place] [address]- 0561 Mar, [facility] [place] [facility] [address] [id number] [place] [address]- 3959 Mar, [facility] [place] [facility] [address] [id number] [place] [address]- 4880 Mar, [facility] [place] [facility] [address] [id number] [place] [address]- 3823 Mar, [facility] [place] [facility] [address] [id number] [place] [address]- 0367 18 Feb, 2012 [facility] [place] [facility] [address] [id number] [place] [address]- 0056 Feb, [facility] [place] [facility] [address] [id number] [place] [address]- 8829 Jan, [facility] [place] [facility] [address] [id number] [place] [address]- 5694 24 Dec, 2011 [facility] [place] [facility] [address] [id number] [place] [address]- 2494 Dec, [facility] [place] [facility] [address] [id number] [place] [address]- 3323 Nov, [facility] [place] [facility] [address] [id number] [place] [address]- 2924 Nov, [facility] [place] [facility] [address] [id number] [place] [address]- 7468 Nov, [facility] [place] [facility] [address] [id number] [place] [address]- 4500 October, [facility] [place] [facility] [address] [id number] [place] [address]- 2165 Sep, [facility] [place] [facility] [address] [id number] [place] [address]- 5988 16 Sep, 2011 [facility] [place] [facility] [address] [id number] [place] [address]- 7709 Sep, [facility] [place] [facility] [address] [id number] [place] [address]- 5495 26 Aug, 2011 [facility] [place] [facility] [address] [id number], [place] [address]- 6111 21 Aug, 2011 [facility] [place] [facility] [address] [id number] [place] [address]- 1693 20 Aug, 2011 [facility] [place] [facility] [address] [id number] [place] [address]- 2660 15 Aug, 2011 [facility] [place] [facility] [address] [id number] [place] [address]- 8751 14 Aug, 2011 [facility] [place] [facility] [address] [id number] [place] [address]- 3688 12 Aug, 2011 [facility] [address] [id number] [place] [address]- 9546 08 Aug, 2011 [facility] [place] [facility] [address] [id number] [place] [address] 2546 05 Aug, 2011 [facility] [address] [id number] [place] [address]- 4466 27 Jul, 2011 [facility] [place] [facility] [address] [id number] [place] [address] 2546 Jul, [facility] [place] [facility] [address] [id number] [place] [address]- 9036 Jul, [facility] [place] [facility] [address] [id number] [place] [address]- 5816 15 Jul, 2011 [facility] [place] [facility] [address] [id number] [place] [address] 2546 Jul, [facility] [address] [id number] [place] [address]- 3679 Jul, [facility] [place] [facility] [address] [id number] [place] [address]- 9107 Jun, [facility] [address] [facility] [id number] [place] [address]- 0099 Jun, [facility] [place] [facility] [address] [id number] [place] [address] 2546 Jun, [facility] [place] [facility] [address] [id number] [place] [address] 2547 Jun, [facility] [place] [facility] [address] [id number] [place] [address] 2546 May, [facility] [place] [facility] [address] [id number] [place] [address] 2546 May, [facility] [place] [facility] [address] [id number] [place] [address]- 1411 May, [facility] [place] [facility] [address] [id number] [place] [address]- 3678 12 May, 2011 [facility] [place] [facility] [address] [id number] [place] [address]- 5269 03 May, 2011 [facility] [place] [facility] [address] [id number] [place] [address] 30 Apr, 2011 [facility] [place] [facility] [address] [id number] [place] [address] 14 Apr, 2011 [facility] [place] [facility] [address] [id number] [place] [address] 31 Mar, 2011 [facility] [place] [facility] [address] [id number] [place] [address] 15 Feb, 2011 [facility] [place] [facility] [address] [id number] [place] [address] Feb, [facility] [place] [facility] [address] [id number] [place] [address] May, [facility] [place] [facility] [address] [id number] [place] [address] Apr, [facility] [place] [facility] [address] [id number], [place] [address] 15 Apr, 2010 [facility] [place] [facility] [address] [id number], [place] [address] Apr, [facility] [place] [facility] [address] [id number], [place] [address] 15 Apr, 2010 [facility] [place] [facility] [address] [id number] [place] [address] Apr, [facility] [place] [facility] [address] [id number], [place] [address] Apr, [facility] [place] [facility] [address] [id number] [place] [address] Mar, [facility] [place] [facility] [address] [facility] [id number] [place] [address] Mar, [facility] [address] [facility] [id number] [place] [address] Sep, IMMUNIZATIONS No Known Immunizations SOCIAL HISTORY Never Assessed REASON FOR VISIT tremors PLAN OF CARE VITAL SIGNS MEDICATIONS Unknown [...] attempts Hospitalization History Ischemic colitis, dementia, generalized debility-[facility] 07/30/17
--- OUTSIDE RECORDS SUMMARY | 2018-06-23 23:17 | XMS REPORT ---
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 Name Role Phone CARO CAMARA Unavailable PROBLEMS Type Condition ICD9-CM Code HZZ40-IX Code Onset Dates Condition Status SNOMED Code Problem Mood disorder F39 Active 37950483 Problem Dementia without behavioral disturbance, unspecified dementia type F03.90 Active 85489499 Problem Hypertension, benign I10 Active 08337342 Problem Cognitive dysfunction F09 Active 530488268 Problem 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 565869603 Problem Anxiety disorder, unspecified F41.9 Active 251775153 Problem Major depression F32.9 Active [id number] ALLERGIES No Information ENCOUNTERS Encounter Location Date Diagnosis [facility] [id number] [place] [address] 27564- 4392 Jan, [facility] [id number] [place] [address] 84860- 6632 Jan, [facility] [id number] [place] [address] 03069- 4132 Jan, Anxiety disorder, unspecified F41.9 and Mood disorder F39 [facility] [id number] [place] [address] 05089- 8475 Jan, Mood disorder F39 and Dementia associated with other underlying disease without behavioral disturbance F02.80 [facility] [id number] [place] [address] 13818- 5810 Dec, Mood disorder F39 [facility] [id number] [place] [address] 99953- 0998 Dec, Mood disorder F39 [facility] [id number] [place] [address] 95143- 0232 Nov, [facility] [address] [address] 9027 Nov, Dementia without behavioral disturbance, unspecified dementia type F03.90 ; Cognitive dysfunction F09 and Major depression F32.9 [facility] [address] [place] [address] October, Encounter for examination for admission to intermediate Z02.2 ; Tardive dyskinesia G24.01 ; Major depression F32.9 ; Anxiety disorder, unspecified F41.9 ; Cognitive dysfunction F09 and Dementia without behavioral disturbance, unspecified dementia type F03.90 [facility] [id number] [place] [address] 99366- 7738 October, [facility] [id number] [place] [address] 86145- 4002 October, [facility] [id number] [place] [address] 17228- 7698 Sep, Acute deep vein thrombosis (DVT) of proximal vein of left lower extremity I82.4Y2 [facility] [id number] [place] [address] 41364- 5020 Sep, Mood disorder F39 and Dementia associated with other underlying disease without behavioral disturbance F02.80 [facility] [address] [address] 9270 Sep, Mood disorder F39 and Acute deep vein thrombosis (DVT) of proximal vein of left lower extremity I82.4Y2 [facility] [address] [address] 96[address] Sep, [facility] [address] [place] [id number] Sep, History of DVT (deep vein thrombosis) Z86.718 and Dementia F03.90 [facility] [id number] [address] 8469 Sep, Mood disorder F39 and Dementia without behavioral disturbance, unspecified dementia type F03.90 [facility] [address] [address] 2462 Aug, [facility] [id number] [place] [address] 10668- 4537 Aug, [facility] [id number] [place] [address] [id number] Aug, [facility] [id number] [place] [address] 82887- 6515 Aug, [facility] [id number] [place] [address] 07203- 0636 Aug, Acute deep vein thrombosis (DVT) of proximal vein of left lower extremity I82.4Y2 [facility] [address] [place] [id number] Aug, Left leg swelling M79.89 [facility] [id number] [place] [address] 74383- 2798 Aug, Mood disorder F39 and Dementia without behavioral disturbance, unspecified dementia type F03.90 [facility] [id number] [place] [address] 00072- 7307 Jul, [facility] [id number] [place] [address] 90386- 3043 Jul, Dementia without behavioral disturbance, unspecified dementia type F03.90 and Mood disorder F39 [facility] [address] [place] [id number] Jul, Encounter for examination for admission to intermediate Z02.2 ; Rectal bleed K62.5 ; Dementia without behavioral disturbance, unspecified dementia type F03.90 ; Hypertension, benign I10 ; Edema R60.9 and Major depression F32.9 [facility] [id number] [place] [address] [id number] Jul, [facility] [address] [address] 0889 Apr, Dementia without behavioral disturbance, unspecified dementia type F03.90 and Mood disorder F39 [facility] [address] [address] 7119 Apr, [facility] [id number] [place] [address] [id number]- 6056 Feb, Hypertension, benign I10 [facility] [address] [address] 0446 Dec, Major depression F32.9 ; Anxiety disorder, unspecified F41.9 ; Cognitive dysfunction F09 and Dementia without behavioral disturbance, unspecified dementia type F03.90 [facility] [id number] [place] [address] 65966- 7116 October, Hypertension, benign I10 [facility] [id number] [place] [address] 90544- 0055 Sep, Major depression F32.9 ; Anxiety disorder, unspecified F41.9 and Cognitive dysfunction F09 [facility] [address] [place] [address] 74587- 8293 Apr, Major depression F32.9 and Cognitive dysfunction F09 [facility] [id number] [place] [address] 76746- 7104 Jan, Anxiety disorder, unspecified F41.9 ; Major depression F32.9 and Cognitive dysfunction F09 [facility] [address], [place] [address] 2330 Jan, [facility] [id number] [place] [address] 61328- 0840 Dec, [facility] [address], [place] [address]- 7422 Dec, [facility] [id number] [place] [address] [id number] Nov, Anxiety disorder, unspecified F41.9 ; Major depression F32.9 and Cognitive dysfunction F09 [facility] [id number] [place] [address] 29269- 3119 October, Dementia without behavioral disturbance, unspecified dementia type F03.90 [facility] [id number] [place] [address] 03513- 5773 Sep, Cognitive dysfunction F09 and Edema R60.9 [facility] [id number] [place] [address] 81557- 8950 Sep, Cognitive dysfunction F09 and Edema R60.9 [facility] [id number] [place] [address] 94178- 7088 Aug, Self-care deficit for medication administration R41.89 ; Self-care deficit in patient living alone R46.89 and Cognitive dysfunction F09 [facility] [id number] [place] [address] 83807- 4206 Aug, 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 and Unspecified intracranial injury without loss of consciousness, sequela S06.9X0S [facility] [id number] [place] [address] 85111- 4666 Jul, [facility] [address] 51421- 9215 Jun, Anxiety disorder, unspecified F41.9 and Major depression F32.9 [facility] [id number] [place] [address] 49549- 9143 Jun, [facility] [id number] [place] [address] 55114- 7473 May, [facility] [id number] [place] [address] 72955- 2918 May, Nausea R11.0 [facility] [address] 99716- 2562 Apr, [facility] [id number] [place] [address] 25579- 3615 Mar, Major depression F32.9 [facility] [address] [id number]- 2546 Mar, Encounter for immunization Z23 [facility] [id number] [place] [address] 07825- 9479 Mar, Major depression F32.9 and Anxiety disorder, unspecified F41.9 [facility] [address] [address]- 8955 Dec, Major depression, chronic 296.20 and Anxiety disorder, unspecified 300.00 [facility] [id number] [place] [address] 32067- 1783 October, Hypertension 401.9 [facility] [id number] [place] [address] 40283- 3588 Sep, [facility] [id number] [place] [address] 78532- 7140 Sep, [facility] [id number] [place] [address] 91419- 2442 18 Jul, 2014 [facility] [address] [place] [address]- 6540 Jul, [facility] [address], [place] [address]- 0179 Jul, [facility] [address], [place] [address]- 0606 May, [facility] [address], [place] [address]- 8945 May, [facility] [address], [place] [address]- 2537 May, [facility] [address], [place] [address]- 4981 May, [facility] [address], [place] [address]- 8917 Apr, [facility] [address], [place] [address]- 7148 Apr, [facility] [place] [facility] [address] [id number] [place] [address]- 1839 Feb, [facility] [place] [facility] [address] [id number] [place] [address]- 5567 Feb, [facility] [place] [facility] [address] [id number] [place] [address]- 9567 Jan, [facility] [place] [facility] [address] [id number] [place] [address]- 5910 Jan, [facility] [place] [facility] [address] [id number] [place] [address]- 4898 Jan, [facility] [place] [facility] [address] [id number] [place] [address]- 4934 Jan, [facility] [place] [facility] [address] [id number] [place] [address]- 9735 Dec, [facility] [place] [facility] [address] [id number] [place] [address]- 9418 Dec, [facility] [place] [facility] [address] [id number] [place] [address]- 9776 Nov, [facility] [place] [facility] [address] [id number] [place] [address]- 4259 Nov, [facility] [place] [facility] [address] [id number] [place] [address]- 5444 Nov, [facility] [place] [facility] [address] [id number] [address]- 8990 Nov, [facility] [place] [facility] [address] [id number] [place] [address]- 9010 October, [facility] [place] [facility] [address] [id number] [place] [address]- 8694 October, [facility] [place] [facility] [address] [id number] [place] [address]- 8702 Sep, [facility] [place] [facility] [address] [id number] [place] [address]- 6091 Sep, [facility] [address] [id number] [place] [address]- 9683 Sep, [facility] [place] [facility] [address] [id number] [place] [address]- 1922 Sep, [facility] [place] [facility] [address] [id number] [place] [address]- 8052 Sep, [facility] [place] [facility] [address] [id number] [place] [address]- 8352 Sep, [facility] [place] [facility] [address] [id number] [place] [address]- 4230 Aug, [facility] [place] [facility] [address] [id number] [place] [address]- 8050 Aug, [facility] [place] [facility] [address] [id number] [place] [address]- 9987 Jul, [facility] [place] [facility] [address] [id number] [place] [address]- 8722 Jul, [facility] [place] [facility] [address] [id number] [place] [address]- 0456 May, [facility] [place] [facility] [address] [id number] [place] [address]- 3625 May, [facility] [place] [facility] [address] [id number] [place] [address]- 5992 May, [facility] [place] [facility] [address] [id number] [place] [address]- 2674 May, [facility] [place] [facility] [address] [id number] [place] [address]- 9769 May, [facility] [place] [facility] [address] [id number] [place] [address]- 9425 May, [facility] [place] [facility] [address] [id number] [place] [address]- 8176 Apr, [facility] [place] [facility] [address] [id number] [place] [address]- 2455 Apr, [facility] [place] [facility] [address] [id number] [place] [address]- 2040 Apr, [facility] [place] [facility] [address] [id number] [place] [address]- 8440 Apr, [facility] [place] [facility] [address] [id number] [place] [address]- 2191 Apr, [facility] [address] [id number] [place] [address]- 0286 Apr, [facility] [place] [facility] [address] [id number] [place] [address]- 4173 Feb, [facility] [address] [id number] [place] [address]- 5219 Feb, [facility] [address] [id number] [place] [address]- 8149 Feb, [facility] [address] [id number] [place] [address]- 1243 Feb, [facility] [place] [facility] [address] [id number] [place] [address]- 5619 Jan, [facility] [place] [facility] [address] [id number] [place] [address]- 2788 Dec, [facility] [place] [facility] [address] [id number], [place] [address]- 2410 Dec, [facility] [place] [facility] [address] [id number] [place] [address]- 9261 Dec, [facility] [place] [facility] [address] [id number] [place] [address]- 2437 Dec, [facility] [place] [facility] [address] [id number] [place] [address]- 2680 Nov, [facility] [place] [facility] [address] [id number], [place] [address]- 5577 Nov, [facility] [address] [id number] [place] [address]- 8511 October, [facility] [address] [id number] [place] [address]- 4489 October, [facility] [address] [id number] [place] [address]- 9957 October, [facility] [address] [id number] [place] [address]- 1643 October, [facility] [address] [id number] [place] [address]- 9701 Sep, [facility] [address] [id number] [place] [address]- 1085 Aug, [facility] [address] [id number] [place] [address]- 2884 Aug, [facility] [address] [id number] [place] [address]- 5899 Aug, [facility] [address] [id number] [place] [address]- 2520 Aug, [facility] [address] [id number] [place] [address]- 3869 Jul, [facility] [address] [id number], [place] [address]- 8756 Jul, [facility] [place] [facility] [address] [id number] [place] [address]- 4363 Jul, [facility] [place] [facility] [address] [id number] [place] [address]- 4158 Jun, [facility] [place] [facility] [address] [id number] [place] [address]- 9582 Jun, [facility] [place] [facility] [address] [facility] [id number] [place] [address]- 1665 May, [facility] [place] [facility] [address] [id number] [place] [address]- 5000 May, [facility] [place] [facility] [address] [id number] [place] 4102 Apr, [facility] [place] [facility] [address] [id number] [place] 9499 Apr, [facility] [place] [facility] [address] [id number] [place] [address]- 9872 Apr, [facility] [place] [facility] [address] [id number] [place] [address]- 7520 Apr, [facility] [place] [facility] [address] [id number] [place] [address]- 3385 Apr, [facility] [place] [facility] [address] [id number] [place] [address]- 3456 Apr, [facility] [place] [facility] [address] [id number] [place] [address]- 6041 Mar, [facility] [place] [facility] [address] [id number] [place] [address]- 1247 Mar, [facility] [place] [facility] [address] [id number] [place] [address]- 1436 Mar, [facility] [place] [facility] [address] [id number] [place] [address]- 7364 Mar, [facility] [place] [facility] [address] [id number] [place] [address]- 3582 Mar, [facility] [place] [facility] [address] [id number] [place] [address]- 8316 Mar, [facility] [place] [facility] [address] [id number] [place] [address]- 2366 Mar, [facility] [place] [facility] [address] [id number] [place] [address]- 1714 18 Feb, 2012 [facility] [place] [facility] [address] [id number] [place] [address]- 1475 Feb, [facility] [place] [facility] [address] [id number] [place] [address]- 4661 Jan, [facility] [place] [facility] [address] [id number] [place] [address]- 0198 24 Dec, 2011 [facility] [place] [facility] [address] [id number] [place] [address]- 2455 Dec, [facility] [place] [facility] [address] [id number] [place] [address]- 5139 Nov, [facility] [place] [facility] [address] [id number] [place] [address]- 3592 Nov, [facility] [place] [facility] [address] [id number] [place] [address]- 3523 Nov, [facility] [place] [facility] [address] [id number] [place] [address]- 9302 October, [facility] [place] [facility] [address] [id number] [place] [address]- 1716 Sep, [facility] [place] [facility] [address] [id number] [place] [address]- 5064 16 Sep, 2011 [facility] [place] [facility] [address] [id number] [place] [address]- 6327 Sep, [facility] [place] [facility] [address] [id number] [place] [address]- 2336 26 Aug, 2011 [facility] [place] [facility] [address] [id number], [place] [address]- 9793 21 Aug, 2011 [facility] [place] [facility] [address] [id number] [place] [address]- 5617 20 Aug, 2011 [facility] [place] [facility] [address] [id number] [place] [address]- 3103 15 Aug, 2011 [facility] [place] [facility] [address] [id number] [place] [address]- 6485 14 Aug, 2011 [facility] [place] [facility] [address] [id number] [place] [address]- 4743 12 Aug, 2011 [facility] [address] [id number] [place] [address]- 0646 08 Aug, 2011 [facility] [place] [facility] [address] [id number] [place] [address] 2546 05 Aug, 2011 [facility] [address] [id number] [place] [address]- 8036 27 Jul, 2011 [facility] [place] [facility] [address] [id number] [place] [address] 2546 Jul, [facility] [place] [facility] [address] [id number] [place] [address]- 7356 Jul, [facility] [place] [facility] [address] [id number] [place] [address]- 8516 15 Jul, 2011 [facility] [place] [facility] [address] [id number] [place] [address] 2546 Jul, [facility] [address] [id number] [place] [address]- 1906 Jul, [facility] [place] [facility] [address] [id number] [place] [address]- 7453 Jun, [facility] [address] [facility] [id number] [place] [address]- 69[address] Jun, [facility] [place] [facility] [address] [id number] [place] [address] Jun, [facility] [place] [facility] [address] [id number] [place] [address] Jun, [facility] [place] [facility] [address] [id number] [place] [address] May, [facility] [place] [facility] [address] [id number] [place] [address] May, [facility] [place] [facility] [address] [id number] [place] [address] May, [facility] [place] [facility] [address] [id number] [place] [address] 12 May, 2011 [facility] [place] [facility] [address] [id number] [place] [address] 03 May, 2011 [facility] [place] [facility] [address] [id number] [place] [address] 30 Apr, 2011 [facility] [place] [facility] [address] [id number] [place] [address] 14 Apr, 2011 [facility] [place] [facility] [address] [id number] [place] [address] 31 Mar, 2011 [facility] [place] [facility] [address] [id number] [place] [address] 15 Feb, 2011 [facility] [place] [facility] [address] [id number] [place] [address] Feb, [facility] [place] [facility] [address] [id number] [place] [address] May, [facility] [place] [facility] [address] [id number] [place] [address] Apr, [facility] [place] [facility] [address] [id number], [place] [address] 15 Apr, 2010 [facility] [place] [facility] [address] [id number], [place] [address] Apr, [facility] [place] [facility] [address] [id number], [place] [address] 15 Apr, 2010 [facility] [place] [facility] [address] [id number] [place] [address] Apr, [facility] [place] [facility] [address] [id number], [place] [address] Apr, [facility] [place] [facility] [address] [id number] [place] [address] Mar, [facility] [place] [facility] [address] [facility] [id number] [place] [address] Mar, [facility] [address] [facility] [id number] [place] [address] Sep, IMMUNIZATIONS No Known Immunizations SOCIAL HISTORY Never Assessed REASON FOR VISIT med change PLAN OF CARE VITAL SIGNS MEDICATIONS Medication Instructions Dosage Frequency Start Date End Date Duration Status Ibuprofen 400 mg Orally every 6hrs 1 tablet with food or milk as needed October, Active RESULTS No Results PROCEDURES No Known [...] attempts Hospitalization History Ischemic colitis, dementia, generalized debility-[facility] 07/30/17
--- OUTSIDE RECORDS SUMMARY | 2018-06-23 23:18 | XMS REPORT ---
Author Author CARO CAMARA [facility] Address [address] [place] [address] Care Team Providers Care Shift Commander Name Role Phone CARO CAMARA Unavailable PROBLEMS Type Condition ICD9-CM Code [id number] Code Onset Dates Condition Status SNOMED Code Problem Mood disorder F39 Active 13783080 Problem Dementia without behavioral disturbance, unspecified dementia type F03.90 Active 35532974 Problem Hypertension, benign I10 Active 39991133 Problem Cognitive dysfunction F09 Active 347499458 Problem 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 327967635 Problem Anxiety disorder, unspecified F41.9 Active 047629461 Problem Major depression F32.9 Active [id number] ALLERGIES No Information ENCOUNTERS Encounter Location Date Diagnosis [facility] [address], [place] [address] Jan, [facility] [address], [place] [address] Jan, [facility] [address], [place] [address] 267[address] Dec, Mood disorder F39 [facility] [id number] [place] [address]29- 8069 Dec, Mood disorder F39 [facility] [address], [place] [address] Nov, [facility] [id number] [place] [address] 15906- 2028 Nov, Dementia without behavioral disturbance, unspecified dementia type F03.90 ; Cognitive dysfunction F09 and Major depression F32.9 [facility] [address] [place] [address] October, Encounter for examination for admission to group home Z02.2 ; Tardive dyskinesia G24.01 ; Major depression F32.9 ; Anxiety disorder, unspecified F41.9 ; Cognitive dysfunction F09 and Dementia without behavioral disturbance, unspecified dementia type F03.90 [facility] [id number] [place] [address] 55296- 6179 October, [facility] [id number] [place] [address] 76366- 8811 October, [facility] [id number] [place] [address] 25286- 0721 Sep, Acute deep vein thrombosis (DVT) of proximal vein of left lower extremity I82.4Y2 [facility] [id number] [place] [address] 74604- 9646 Sep, Mood disorder F39 and Dementia associated with other underlying disease without behavioral disturbance F02.80 [facility] [id number] [place] [address] 82112- 9928 Sep, Mood disorder F39 and Acute deep vein thrombosis (DVT) of proximal vein of left lower extremity I82.4Y2 [facility] [id number] [place] [address] 12792- 0773 Sep, [facility] [address] [facility] [place] [id number] Sep, History of DVT (deep vein thrombosis) Z86.718 and Dementia F03.90 [facility] [id number] [place] [address] 97023- 2718 Sep, Mood disorder F39 and Dementia without behavioral disturbance, unspecified dementia type F03.90 [facility] [id number] [place] [address] 59512- 3463 Aug, [facility] [id number] [place] [address] 99117- 9297 Aug, [facility] [id number] [place] [address] [id number] Aug, [facility] [address], [place] [address] Aug, [facility] [id number] [place] [address] 70861- 4432 Aug, Acute deep vein thrombosis (DVT) of proximal vein of left lower extremity I82.4Y2 [facility] [address] [place] [id number] Aug, Left leg swelling M79.89 [facility] [id number] [place] [address] 07327- 4046 Aug, Mood disorder F39 and Dementia without behavioral disturbance, unspecified dementia type F03.90 [facility] [id number] [place] [address] 57939- 0911 Jul, [facility] [id number] [place] [address] 37961- 7622 Jul, Dementia without behavioral disturbance, unspecified dementia type F03.90 and Mood disorder F39 [facility] [address] [place] [id number] Jul, Encounter for examination for admission to group home Z02.2 ; Rectal bleed K62.5 ; Dementia without behavioral disturbance, unspecified dementia type F03.90 ; Hypertension, benign I10 ; Edema R60.9 and Major depression F32.9 [facility] [id number] [place] [id number] Jul, [facility] [id number] [place] [address] 64951- 0308 Apr, Dementia without behavioral disturbance, unspecified dementia type F03.90 and Mood disorder F39 [facility] [id number] [place] [address] 40460- 9068 Apr, [facility] [id number] [place] [address] 45400- 0103 Feb, Hypertension, benign I10 [facility] [id number] [place] [address] 19334- 0776 Dec, Major depression F32.9 ; Anxiety disorder, unspecified F41.9 ; Cognitive dysfunction F09 and Dementia without behavioral disturbance, unspecified dementia type F03.90 [facility] [id number] [place] [address] 13122- 2362 October, Hypertension, benign I10 [facility] [id number] [place] [address] 68089- 1681 Sep, Major depression F32.9 ; Anxiety disorder, unspecified F41.9 and Cognitive dysfunction F09 [facility] [id number] [place] [address] 67799- 8779 Apr, Major depression F32.9 and Cognitive dysfunction F09 [facility] [id number] [place] [address] 85505- 7413 Jan, Anxiety disorder, unspecified F41.9 ; Major depression F32.9 and Cognitive dysfunction F09 [facility] [id number] [place] [address] 39556- 8863 Jan, [facility] [id number] [place] [address] 10114- 2034 Dec, [facility] [id number] [place] [address] 98179- 8530 Dec, [facility] [id number] [place] [address] 40475- 0218 Nov, Anxiety disorder, unspecified F41.9 ; Major depression F32.9 and Cognitive dysfunction F09 [facility] [id number] [place] [address] 13318- 4388 October, Dementia without behavioral disturbance, unspecified dementia type F03.90 [facility] [id number] [place] [address] 06408- 3912 Sep, Cognitive dysfunction F09 and Edema R60.9 [facility] [id number] [place] [address] 56751- 1685 Sep, Cognitive dysfunction F09 and Edema R60.9 [facility] [id number] [place] [address] 01468- 5774 Aug, 2016 Self-care deficit for medication administration R41.89 ; Self-care deficit in patient living alone R46.89 and Cognitive dysfunction F09 [facility] [id number] [place] [address] 22616- 6376 Aug, 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 and Unspecified intracranial injury without loss of consciousness, sequela S06.9X0S [place] [address] [address]- 9301 Jul, [facility] [address] 07900- 9631 Jun, Anxiety disorder, unspecified F41.9 and Major depression F32.9 [facility] [facility] [address] 30674- 7320 Jun, [facility] [id number] [place] [address] 06073- 9858 May, [facility] [address] 01561- 4554 May, Nausea R11.0 [facility] [address] 79947- 3086 Apr, [facility] [id number] [place] [address] 06756- 9625 Mar, Major depression F32.9 [facility] [id number] [place] [address] 90168- 3670 Mar, Encounter for immunization Z23 [facility] [address] 93114- 0015 Mar, Major depression F32.9 and Anxiety disorder, unspecified F41.9 [place] [facility] [address] 98642- 2392 Dec, Major depression, chronic 296.20 and Anxiety disorder, unspecified 300.00 [facility] [id number] [place] [address] 56079- 1521 October, Hypertension 401.9 [facility] [id number] [address]- 7153 14 Sep, 2014 [facility] [id number] [place] [address], [place] [address]- 1041 Sep, [facility] [id number] [place] [address], [place] [address]- 6695 18 Jul, 2014 [facility] [id number] [place] [address], [place] [address]- 5836 Jul, [facility] [id number] [place] [address], [place] [address]- 7022 Jul, [facility] [id number] [place] [address], [place] [address]- 7146 May, [facility] [id number] [address]- 4594 May, [facility] [id number] [place] [address], [place] [address]- 7844 May, [facility] [address], [place] [address]- 6722 May, [facility] [address], [place] [address]- 0330 Apr, [facility] [address], [place] [address]- 5024 Apr, [facility] [id number] 3649 Feb, [facility] [address] 5546 Feb, [facility] [id number] [place] [address] 76856- 5738 Jan, [facility] [place] [facility] [address] [id number] [place] [address]- 4423 Jan, [facility] [place] [facility] [address] [id number] [place] [address]- 2546 Jan, [facility] [place] [facility] [address] [id number] [place] [address]- 4304 Jan, [facility] [place] [facility] [address] [id number] [place] [address]- 7244 Dec, [facility] [place] [facility] [address] [id number] [place] [address]- 5305 Dec, [facility] [place] [facility] [address] [id number] [place] [address]- 9044 Nov, [facility] [place] [facility] [address] [id number] [place] [address]- 9419 Nov, [facility] [place] [facility] [address] [id number] [place] [address]- 1794 Nov, [facility] [place] [facility] [address] [id number] [place] [address]- 0775 Nov, [facility] [place] [facility] [address] [id number] [place] [address]- 5975 October, [facility] [place] [facility] [address] [id number] [place] [address]- 7713 October, [facility] [place] [facility] [address] [id number], [place] [address]- 4568 Sep, [facility] [place] [facility] [address] [id number] [place] [address]- 9457 Sep, [facility] [place] [facility] [address] [id number] [place] [address]- 1763 Sep, [facility] [place] [facility] [address] [id number] [place] [address]- 8678 Sep, [facility] [place] [facility] [address] [id number] [place] 6725 Sep, [facility] [address] [id number] [place] [address]- 7189 Sep, [facility] [place] [facility] [address] [id number] [place] [address]- 9166 Aug, [facility] [place] [facility] [address] [id number] [place] [address]- 6908 Aug, [facility] [place] [facility] [address] [id number] [place] [address]- 0116 Jul, [facility] [place] [facility] [address] [id number] [place] [address]- 0368 Jul, [facility] [place] [facility] [address] [id number] [place] [address]- 8314 May, [facility] [address] [id number] [place] [address]- 8852 May, [facility] [place] [facility] [address] [id number] [place] [address]- 7447 May, [facility] [place] [facility] [address] [id number] [place] [address]- 4186 May, [facility] [place] [facility] [address] [id number] [place] [address]- 9055 May, [facility] [place] [facility] [address] [id number] [place] [address] 2546 May, [facility] [place] [facility] [address] [id number] [place] [address]- 2542 Apr, [facility] [place] [facility] [address] [id number] [place] [address]- 3944 Apr, [facility] [place] [facility] [address] [id number] [place] [address]- 254 Apr, [facility] [place] [facility] [address] [id number] [place] [address]- 6372 Apr, [facility] [place] [facility] [address] [id number] [place] [address] 2549 Apr, [facility] [address] [id number] [place] [address] 2543 Apr, [facility] [address] [id number] [place] [address]- 5007 Feb, [facility] [place] [facility] [address] [id number] [place] [address] 2542 Feb, [facility] [address] [id number] [place] [address]- 7790 Feb, [facility] [address] [id number] [place] [address] 2543 Feb, [facility] [address] [id number] [place] [address]- 8033 Jan, [facility] [address] [id number] [place] [address]- 6572 Dec, [facility] [address] [id number] [place] [address]- 8966 Dec, [facility] [address] [id number] [place] [address]- 1395 Dec, [facility] [address] [id number] [place] [address]- 2542 Dec, [facility] [address] [id number] [place] [address]- 2542 Nov, [facility] [place] [facility] [address] [id number] [place] [address]- 2548 Nov, [facility] [place] [facility] [address] [id number] [place] [address]- 9704 October, [facility] [place] [facility] [address] [id number] [place] [address]- 2547 October, [facility] [place] [facility] [address] [id number], [place] [address]- 0896 October, [facility] [address] [id number] [place] [address]- 7137 October, [facility] [address] [id number] [place] [address]- 7046 Sep, [facility] [address] [facility] [id number] [place] [address]- 7273 Aug, [facility] [place] [facility] [address] [id number] [place] [address]- 2189 Aug, [facility] [address] [id number] [place] [address]- 9219 Aug, [facility] [address] [facility] [id number] [place] [address]- 0816 Aug, [facility] [address] [facility] [id number] [place] [address]- 1135 Jul, [facility] [place] [facility] [address] [id number] [place] [address]- 5846 Jul, [facility] [address] [facility] [id number] [place] [address]- 1205 Jul, [facility] [address] [facility] [id number] [place] [address]- 4156 Jun, [facility] [address] [facility] [id number] [place] [address]- 9311 Jun, [facility] [place] [facility] [address] [id number], [place] [address]- 9319 May, [facility] [place] [facility] [address] [id number] [place] [address]- 2417 May, [facility] [place] [facility] [address] [facility] [id number] [place] [address]- 0313 Apr, [facility] [place] [facility] [address] [facility] [id number] [place] [address]- 3611 Apr, [facility] [place] [facility] [address] [id number] [place] [address]- 2306 Apr, [facility] [place] [facility] [address] [id number] [place] [address]- 9612 Apr, [facility] [place] [facility] [address] [id number] [place] 0930 Apr, [facility] [place] [facility] [address] [id number] [place] [address]- 4858 Apr, [facility] [place] [facility] [address] [id number] [place] [address]- 0875 Mar, [facility] [place] [facility] [address] [id number] [place] 3491 Mar, [facility] [place] [facility] [address] [id number] [place] [address]- 6565 Mar, [facility] [place] [facility] [address] [id number] [place] [address]- 9140 Mar, [facility] [place] [facility] [address] [id number] [place] [address]- 2675 Mar, [facility] [place] [facility] [address] [id number] [place] [address]- 7386 Mar, [facility] [place] [facility] [address] [id number] [place] 8441 Mar, [facility] [place] [facility] [address] [id number] [place] [address]- 0604 Feb, [facility] [place] [facility] [address] [id number] [place] [address]- 0488 Feb, [facility] [place] [facility] [address] [id number] [place] [address]- 0633 Jan, [facility] [place] [facility] [address] [id number] [place] [address]- 8376 Dec, [facility] [place] [facility] [address] [id number] [place] [address]- 4868 Dec, [facility] [place] [facility] [address] [id number] [place] [address]- 7651 Nov, [facility] [place] [facility] [address] [id number] [place] [address]- 9731 Nov, [facility] [place] [facility] [address] [id number] [place] [address]- 9854 Nov, [facility] [place] [facility] [address] [id number] [place] [address]- 3245 October, [facility] [place] [facility] [address] [id number] [place] [address]- 5108 Sep, [facility] [place] [facility] [address] [id number] [place] [address]- 6516 16 Sep, 2011 [facility] [place] [facility] [address] [id number] [place] [address]- 5802 Sep, [facility] [place] [facility] [address] [id number] [place] [address]- 5413 26 Aug, 2011 [facility] [place] [facility] [address] [id number] [place] [address]- 0294 21 Aug, 2011 [facility] [place] [facility] [address] [id number] [place] [address]- 3827 20 Aug, 2011 [facility] [place] [facility] [address] [id number] [place] [address]- 6979 15 Aug, 2011 [facility] [place] [facility] [address] [id number], [place] [address]- 8242 14 Aug, 2011 [facility] [place] [facility] [address] [id number] [place] [address]- 3728 12 Aug, 2011 [facility] [place] [facility] [address] [id number] [place] [address]- 3476 08 Aug, 2011 [facility] [place] [facility] [address] [id number] [place] [address]- 3591 05 Aug, 2011 [facility] [place] [facility] [address] [id number] [place] [address]- 5417 27 Jul, 2011 [facility] [address] [id number] [place] [address] 2546 22 Jul, 2011 [facility] [place] [facility] [address] [id number] [place] [address] 2546 20 Jul, 2011 [facility] [address] [id number] [place] [address] 2546 15 Jul, 2011 [facility] [place] [facility] [address] [id number] [place] [address] 2546 06 Jul, 2011 [facility] [address] [id number] [place] [address]- 0146 Jul, [facility] [address] [id number] [place] [address]- 8756 Jun, [facility] [address] [id number] [place] [address] 2547 Jun, [facility] [address] [id number] [place] [address] 2548 Jun, [facility] [address] [id number] [place] [address]- 3097 Jun, [facility] [address] [id number] [place] [address] 2549 29 May, 2011 [facility] [place] [facility] [address] [id number] [place] [address] 2546 May, [facility] [place] [facility] [address] [id number] [place] [address] 2546 May, [facility] [place] [facility] [address] [id number] [place] [address] 2546 May, [facility] [place] [facility] [address] [id number] [place] [address]- 2546 May, [facility] [place] [facility] [address] [id number] [place] [address]- 6278 Apr, [facility] [address] [facility] [id number], [place] [address]- 5727 14 Apr, 2011 [facility] [address] [facility] [id number], [place] [address]- 0241 31 Mar, 2011 [facility] [address] [facility] [id number], [place] [address] 15 Feb, 2011 [facility] [address] [facility] [id number], [place] [address] Feb, [facility] [address] [facility] [id number], [place] [address] May, [facility] [address] [facility] [id number] [place] [id number] Apr, [facility] [id number], [place] [address] Apr, [facility] [id number], [place] [address] Apr, [facility] [id number], [place] [address] Apr, [facility] [id number], [place] [address] Apr, [facility] [id number], [place] [address] Apr, [facility] [id number], [place] [address] Mar, [facility] [id number], [place] [address] Mar, [facility] [id number], [place] [address] Sep, IMMUNIZATIONS No Known Immunizations SOCIAL HISTORY Never Assessed REASON FOR VISIT Med Clarification PLAN OF CARE VITAL SIGNS MEDICATIONS Medication Instructions Dosage Frequency Start Date End Date Duration Status Eliquis 5 mg Orally 2 times a [...] attempts Hospitalization History Ischemic colitis, dementia, generalized debility-[facility] 07/30/17
--- OUTSIDE RECORDS SUMMARY | 2018-06-23 23:18 | XMS REPORT ---
Author Author CARO CAMARA [facility] Address [address] [place] [address] Care Team Providers Care Accounting Director Name Role Phone CARO CAMARA Unavailable PROBLEMS Type Condition ICD9-CM Code ZVB39-YB Code Onset Dates Condition Status SNOMED Code Problem Mood disorder F39 Active 92153156 Problem Dementia without behavioral disturbance, unspecified dementia type F03.90 Active 88873990 Problem Hypertension, benign I10 Active 35781317 Problem Cognitive dysfunction F09 Active 106345056 Problem 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 047069570 Problem Anxiety disorder, unspecified F41.9 Active 712921407 Problem Major depression F32.9 Active [id number] ALLERGIES No Information ENCOUNTERS Encounter Location Date Diagnosis [facility] [address] [address] Jan, [facility] [address], [place] [address] Jan, [facility] [address], [place] [address] Dec, Mood disorder F39 [facility] [id number] [place] [address] 45074- 1798 Dec, Mood disorder F39 [facility] [address], [place] [address] Nov, [facility] [id number] [place] [address] 52921- 6495 Nov, Dementia without behavioral disturbance, unspecified dementia type F03.90 ; Cognitive dysfunction F09 and Major depression F32.9 [facility] [address] [place] [address] October, Encounter for examination for admission to penitentiary Z02.2 ; Tardive dyskinesia G24.01 ; Major depression F32.9 ; Anxiety disorder, unspecified F41.9 ; Cognitive dysfunction F09 and Dementia without behavioral disturbance, unspecified dementia type F03.90 [facility] [id number] [place] [address] 25834- 1408 October, [facility] [id number] [place] [address] 73789- 4116 October, [facility] [id number] [place] [address] 79772- 4955 Sep, Acute deep vein thrombosis (DVT) of proximal vein of left lower extremity I82.4Y2 [facility] [id number] [place] [address] 54195- 5177 Sep, Mood disorder F39 and Dementia associated with other underlying disease without behavioral disturbance F02.80 [facility] [id number] [place] [address] 29075- 7174 Sep, Mood disorder F39 and Acute deep vein thrombosis (DVT) of proximal vein of left lower extremity I82.4Y2 [facility] [id number] [place] [address] 68985- 8088 Sep, [facility] [address] [facility] [place] [id number] Sep, History of DVT (deep vein thrombosis) Z86.718 and Dementia F03.90 [facility] [id number] [place] [address] 40052- 3828 Sep, Mood disorder F39 and Dementia without behavioral disturbance, unspecified dementia type F03.90 [facility] [id number] [place] [address] 67706- 3887 Aug, [facility] [id number] [place] [address] 26366- 4192 Aug, [facility] [id number] [place] [address] [id number] Aug, [facility] [address], [place] [address] Aug, [facility] [address] [place] [address] 37623- 1806 Aug, Acute deep vein thrombosis (DVT) of proximal vein of left lower extremity I82.4Y2 [facility] [employer] [address] [place] [id number] Aug, Left leg swelling M79.89 [facility] [id number] [place] [address] 52297- 8305 Aug, Mood disorder F39 and Dementia without behavioral disturbance, unspecified dementia type F03.90 [facility] [id number] [place] [address] 59984- 0169 Jul, [facility] [id number] [place] [address] 72895- 3777 Jul, Dementia without behavioral disturbance, unspecified dementia type F03.90 and Mood disorder F39 [facility] [address] [place] [id number] Jul, Encounter for examination for admission to penitentiary Z02.2 ; Rectal bleed K62.5 ; Dementia without behavioral disturbance, unspecified dementia type F03.90 ; Hypertension, benign I10 ; Edema R60.9 and Major depression F32.9 [facility] [address] [place] [id number] [place] [id number] Jul, [facility] [id number] [place] [address] 04160- 0280 Apr, Dementia without behavioral disturbance, unspecified dementia type F03.90 and Mood disorder F39 [facility] [address] [place] [address] 56241- 4015 Apr, [facility] [id number] [place] [address] 01576- 8491 Feb, Hypertension, benign I10 [facility] [id number] [place] [address] 26153- 0890 Dec, Major depression F32.9 ; Anxiety disorder, unspecified F41.9 ; Cognitive dysfunction F09 and Dementia without behavioral disturbance, unspecified dementia type F03.90 [facility] [id number] [place] [address] 61747- 7311 October, Hypertension, benign I10 [facility] [id number] [place] [address] 91870- 9704 Sep, Major depression F32.9 ; Anxiety disorder, unspecified F41.9 and Cognitive dysfunction F09 [facility] [id number] [place] [address] 70366- 1934 Apr, Major depression F32.9 and Cognitive dysfunction F09 [facility] [id number] [place] [address] 99778- 4201 Jan, Anxiety disorder, unspecified F41.9 ; Major depression F32.9 and Cognitive dysfunction F09 [facility] [id number] [place] [address] 04500- 2841 Jan, [facility] [id number] [place] [address] 05620- 4547 Dec, [facility] [id number] [place] [address] 98459- 5898 Dec, [facility] [id number] [place] [address] 54294- 6201 Nov, Anxiety disorder, unspecified F41.9 ; Major depression F32.9 and Cognitive dysfunction F09 [facility] [id number] [place] [address] 91441- 3603 October, Dementia without behavioral disturbance, unspecified dementia type F03.90 [facility] [id number] [place] [address] 71417- 6752 Sep, Cognitive dysfunction F09 and Edema R60.9 [facility] [id number] [place] [address] 15441- 5335 Sep, Cognitive dysfunction F09 and Edema R60.9 [place] [id number] [place] [address] 98641- 6150 Aug, 2016 Self-care deficit for medication administration R41.89 ; Self-care deficit in patient living alone R46.89 and Cognitive dysfunction F09 [facility] [id number] [place] [address] 57676- 2821 Aug, 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 and Unspecified intracranial injury without loss of consciousness, sequela S06.9X0S [place] [address] 58520- 1092 Jul, [facility] [facility] [address] 63053- 3434 Jun, Anxiety disorder, unspecified F41.9 and Major depression F32.9 [facility] [facility] [address] 34609- 0412 Jun, [facility] [id number] [place] [address] 40833- 0741 May, [facility] [address] 50342- 7927 May, Nausea R11.0 [facility] [facility] [address] 23326- 0738 Apr, [facility] [id number] [place] [address] 90160- 3280 Mar, Major depression F32.9 [facility] [facility] [id number] [place] [address] 56632- 0904 Mar, Encounter for immunization Z23 [facility] [facility] [address] 98496- 1882 Mar, Major depression F32.9 and Anxiety disorder, unspecified F41.9 [place] [address] 52757- 9716 Dec, Major depression, chronic 296.20 and Anxiety disorder, unspecified 300.00 [facility] [id number] [place] [address] 49498- 8966 October, Hypertension 401.9 [facility] [id number] [place] [address] 0834 14 Sep, 2014 [facility] [id number] [place] [address], [place] [address]- 2363 Sep, [facility] [id number] [place] [address], [place] [address]- 2975 18 Jul, 2014 [facility] [id number] [place] [address], [place] [address]- 5205 Jul, [facility] [id number] [place] [address], [place] [address]- 3425 Jul, [facility] [id number] [place] [address], [place] [address]- 1403 May, [facility] [address] [place] [address]- 5972 May, [facility] [id number] [place] [address], [place] [address]- 2968 May, [facility] [address], [place] [address]- 9689 May, [facility] [address], [place] [address] 0009 Apr, [facility] [address], [place] [address]- 5961 Apr, [facility] [id number] 0891 Feb, [facility] [address] 0216 Feb, [facility] [address] [place] [address] 76828- 3433 Jan, [facility] [place] [facility] [address] [id number] [place] [address]- 1962 Jan, [facility] [place] [facility] [address] [id number] [place] [address]- 1527 Jan, [facility] [place] [facility] [address] [id number] [place] [address]- 6441 Jan, [facility] [place] [facility] [address] [id number] [place] [address]- 5719 Dec, [facility] [place] [facility] [address] [id number] [place] [address]- 8473 Dec, [facility] [place] [facility] [address] [id number] [place] [address]- 5310 Nov, [facility] [place] [facility] [address] [id number] [place] [address]- 2023 Nov, [facility] [place] [facility] [address] [id number] [place] [address]- 4986 Nov, [facility] [place] [facility] [address] [id number] [place] [address]- 5040 Nov, [facility] [place] [facility] [address] [id number] [place] [address]- 1636 October, [facility] [place] [facility] [address] [id number] [place] [address]- 4063 October, [facility] [place] [facility] [address] [id number], [place] [address]- 4070 Sep, [facility] [place] [facility] [address] [id number] [place] [address]- 3825 Sep, [facility] [place] [facility] [address] [id number] [place] [address]- 3920 Sep, [facility] [place] [facility] [address] [id number] [place] [address]- 2241 Sep, [facility] [place] [facility] [address] [id number] [place] 4587 Sep, [facility] [address] [id number] [place] [address]- 2966 Sep, [facility] [place] [facility] [address] [id number] [place] [address]- 9836 Aug, [facility] [place] [facility] [address] [id number] [place] [address]- 2754 Aug, [facility] [place] [facility] [address] [id number] [place] [address]- 6706 Jul, [facility] [place] [facility] [address] [id number] [place] [address]- 2525 Jul, [facility] [place] [facility] [address] [id number] [place] [address]- 6943 May, [facility] [address] [id number] [place] [address]- 8743 May, [facility] [place] [facility] [address] [id number] [place] [address]- 6271 May, [facility] [place] [facility] [address] [id number] [place] [address]- 8305 May, [facility] [place] [facility] [address] [id number] [place] [address]- 6864 May, [facility] [place] [facility] [address] [id number] [place] [address] 2546 May, [facility] [place] [facility] [address] [id number] [place] [address]- 2540 Apr, [facility] [place] [facility] [address] [id number] [place] [address]- 2401 Apr, [facility] [place] [facility] [address] [id number] [place] [address]- 2545 Apr, [facility] [place] [facility] [address] [id number] [place] [address]- 6248 Apr, [facility] [place] [facility] [address] [id number] [place] [address] 2548 Apr, [facility] [address] [id number] [place] [address] 2544 Apr, [facility] [address] [id number] [place] [address]- 5681 Feb, [facility] [place] [facility] [address] [id number] [place] [address] 2545 Feb, [facility] [address] [id number] [place] [address]- 2381 Feb, [facility] [address] [id number] [place] [address] 254 Feb, [facility] [address] [id number] [place] [address]- 4639 Jan, [facility] [address] [id number] [place] [address]- 1070 Dec, [facility] [address] [id number] [place] [address]- 3487 Dec, [facility] [address] [id number] [place] [address]- 3221 Dec, [facility] [address] [id number] [place] [address]- 2541 Dec, [facility] [address] [id number] [place] [address]- 2540 Nov, [facility] [place] [facility] [address] [id number] [place] [address]- 2544 Nov, [facility] [place] [facility] [address] [id number] [place] [address]- 7259 October, [facility] [place] [facility] [address] [id number] [place] [address]- 2542 October, [facility] [place] [facility] [address] [id number], [place] [address]- 9456 October, [facility] [address] [id number] [place] [address]- 0826 October, [facility] [address] [id number] [place] [address]- 8826 Sep, [facility] [address] [facility] [id number] [place] [address]- 6333 Aug, [facility] [place] [facility] [address] [id number] [place] [address]- 9459 Aug, [facility] [address] [id number] [place] [address]- 7942 Aug, [facility] [address] [facility] [id number] [place] [address]- 9626 Aug, [facility] [address] [facility] [id number] [place] [address]- 3681 Jul, [facility] [place] [facility] [address] [id number] [place] [address]- 1845 Jul, [facility] [address] [facility] [id number] [place] [address]- 4952 Jul, [facility] [address] [facility] [id number] [place] [address]- 0705 Jun, [facility] [address] [facility] [id number] [place] [address]- 3313 Jun, [facility] [place] [facility] [address] [id number], [place] [address]- 1288 May, [facility] [place] [facility] [address] [id number] [place] [address]- 7178 May, [facility] [place] [facility] [address] [facility] [id number] [place] [address]- 1827 Apr, [facility] [place] [facility] [address] [facility] [id number] [place] [address]- 2235 Apr, [facility] [place] [facility] [address] [id number] [place] [address]- 3238 Apr, [facility] [place] [facility] [address] [id number] [place] [address]- 1974 Apr, [facility] [place] [facility] [address] [id number] [place] 0838 Apr, [facility] [place] [facility] [address] [id number] [place] [address]- 9432 Apr, [facility] [place] [facility] [address] [id number] [place] [address]- 0313 Mar, [facility] [place] [facility] [address] [id number] [place] 3844 Mar, [facility] [place] [facility] [address] [id number] [place] [address]- 5254 Mar, [facility] [place] [facility] [address] [id number] [place] [address]- 8733 Mar, [facility] [place] [facility] [address] [id number] [place] [address]- 3622 Mar, [facility] [place] [facility] [address] [id number] [place] [address]- 3223 Mar, [facility] [place] [facility] [address] [id number] [place] 5273 Mar, [facility] [place] [facility] [address] [id number] [place] [address]- 8916 Feb, [facility] [place] [facility] [address] [id number] [place] [address]- 6976 Feb, [facility] [place] [facility] [address] [id number] [place] [address]- 4224 Jan, [facility] [place] [facility] [address] [id number] [place] [address]- 4476 Dec, [facility] [place] [facility] [address] [id number] [place] [address]- 7068 Dec, [facility] [place] [facility] [address] [id number] [place] [address]- 9291 Nov, [facility] [place] [facility] [address] [id number] [place] [address]- 1984 Nov, [facility] [place] [facility] [address] [id number] [place] [address]- 0422 Nov, [facility] [place] [facility] [address] [id number] [place] [address]- 2477 October, [facility] [place] [facility] [address] [id number] [place] [address]- 8637 Sep, [facility] [place] [facility] [address] [id number] [place] [address]- 9996 16 Sep, 2011 [facility] [place] [facility] [address] [id number] [place] [address]- 5281 Sep, [facility] [place] [facility] [address] [id number] [place] [address]- 0549 26 Aug, 2011 [facility] [place] [facility] [address] [id number] [place] [address]- 6959 21 Aug, 2011 [facility] [place] [facility] [address] [id number] [place] [address]- 2386 20 Aug, 2011 [facility] [place] [facility] [address] [id number] [place] [address]- 6072 15 Aug, 2011 [facility] [place] [facility] [address] [id number], [place] [address]- 9732 14 Aug, 2011 [facility] [place] [facility] [address] [id number] [place] [address]- 2369 12 Aug, 2011 [facility] [place] [facility] [address] [id number] [place] [address]- 8163 08 Aug, 2011 [facility] [place] [facility] [address] [id number] [place] [address]- 2005 05 Aug, 2011 [facility] [place] [facility] [address] [id number] [place] [address]- 9708 27 Jul, 2011 [facility] [address] [id number] [place] [address] 2546 22 Jul, 2011 [facility] [place] [facility] [address] [id number] [place] [address] 2546 20 Jul, 2011 [facility] [address] [id number] [place] [address] 2546 15 Jul, 2011 [facility] [place] [facility] [address] [id number] [place] [address] 2546 06 Jul, 2011 [facility] [address] [id number] [place] [address]- 2076 Jul, [facility] [address] [id number] [place] [address]- 3111 Jun, [facility] [address] [id number] [place] [address] 2543 Jun, [facility] [address] [id number] [place] [address] 2549 Jun, [facility] [address] [id number] [place] [address]- 6963 Jun, [facility] [address] [id number] [place] [address] 2540 29 May, 2011 [facility] [place] [facility] [address] [id number] [place] [address] 2546 May, [facility] [place] [facility] [address] [id number] [place] [address] 2546 May, [facility] [place] [facility] [address] [id number] [place] [address] 2546 May, [facility] [place] [facility] [address] [id number] [place] [address]- 2546 May, [facility] [place] [facility] [address] [id number] [place]- 4166 Apr, [facility] [address] [facility] [id number], [place] [address]- 8932 14 Apr, 2011 [facility] [address] [facility] [id number], [place] [address]- 6104 31 Mar, 2011 [facility] [address] [facility] [id number], [place] [address]- 7463 15 Feb, 2011 [facility] [address] [id number], [place] [address] Feb, [facility] [address] [id number], [place] [address] May, [facility] [id number] [place] [id number] Apr, [facility] [id number] [place] [address] Apr, [facility] [id number], [place] [address] Apr, [facility] [id number], [place] [address] Apr, [facility] [id number], [place] [address] Apr, [facility] [id number], [place] [address] Apr, [facility] [id number], [place] [address] Mar, [facility] [id number], [place] [address] Mar, [facility] [id number], [place] [address] Sep, IMMUNIZATIONS No Known Immunizations SOCIAL HISTORY Never Assessed REASON FOR VISIT Routine visit PLAN OF CARE Activity Details Follow Up prn Reason: VITAL SIGNS MEDICATIONS Medication Instructions Dosage Frequency Start Date End Date Duration Status Eliquis 5 mg Orally 2 times a day 2 tabs 12h Aug, 07 days Active BusPIRone HCl 10 MG Orally Twice a day 1 tablet 12h Active Trihexyphenidyl HCl 2 MG Orally twice a day 0.5 tablet 12h Jul, Active Nicoderm CQ 14 MG/24HR Transdermal Once a day 1 patch to skin 24h Active Seroquel 300 MG Orally Once a day 1 tablet 24h Sep, 30 day(s) Active Pantoprazole Sodium 40 MG Orally Once a day 1 tablet 24h Active Lovastatin 20 mg Orally Once a day 1 tablet with a meal 24h Active Lisinopril 10 mg Orally Once a day 1 tablet 24h Active Tylenol 325 MG Orally every 4 hrs 2 tablets as needed 4h Aug, Active RESULTS No Results PROCEDURES Procedure Date Ordered Result Body Site Minor complication (15 mins) September 17, 2017 INSTRUCTIONS MEDICATIONS ADMINISTERED No Known Medications [...] attempts Hospitalization History Ischemic colitis, dementia, generalized debility-[facility] 07/30/17
--- OUTSIDE RECORDS SUMMARY | 2018-06-23 23:19 | XMS REPORT ---
Author Author CARO CAMARA Organization [facility] Address [address] [place] [address] Care Team Providers Care Event Services Manager Name Role Phone CARO CAMARA Unavailable PROBLEMS Type Condition ICD9-CM Code VAY20-BJ Code Onset Dates Condition Status SNOMED Code Problem Mood disorder F39 Active 95404930 Problem Dementia without behavioral disturbance, unspecified dementia type F03.90 Active 23024116 Problem Hypertension, benign I10 Active 45883343 Problem Cognitive dysfunction F09 Active 484483720 Problem 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 982182588 Problem Anxiety disorder, unspecified F41.9 Active 984782978 Problem Major depression F32.9 Active [id number] ALLERGIES No Information ENCOUNTERS Encounter Location Date Diagnosis [facility] [id number] [place] [address] 45207- 2532 Jan, [facility] [id number] [place] [address] 41147- 2314 Dec, Mood disorder F39 [facility] [id number] [place] [address] 54782- 4047 Dec, Mood disorder F39 [place] [id number] [place] [address] 18364- 9472 Nov, [place] [id number] [place] [address] 54440- 2542 Nov, Dementia without behavioral disturbance, unspecified dementia type F03.90 ; Cognitive dysfunction F09 and Major depression F32.[address] [facility] [address] [place] [address] October, Encounter for examination for admission to snf Z02.2 ; Tardive dyskinesia G24.01 ; Major depression F32.9 ; Anxiety disorder, unspecified F41.9 ; Cognitive dysfunction F09 and Dementia without behavioral disturbance, unspecified dementia type F03.90 [facility] [address] [address] 0996 October, [facility] [address] [address] 9[address] October, [facility] [id number] [place] [address] 33579- 3075 Sep, Acute deep vein thrombosis (DVT) of proximal vein of left lower extremity I82.4Y2 [facility] [address] [place] [address] 90279- 9220 Sep, Mood disorder F39 and Dementia associated with other underlying disease without behavioral disturbance F02.80 [facility] [address] [address] 6554 Sep, Mood disorder F39 and Acute deep vein thrombosis (DVT) of proximal vein of left lower extremity I82.4Y2 [facility] [address] [address] 4245 16 Sep, 2017 [address] [place] [address] [place] [id number] Sep, History of DVT (deep vein thrombosis) Z86.718 and Dementia F03.90 [facility] [address] [address] 7290 Sep, Mood disorder F39 and Dementia without behavioral disturbance, unspecified dementia type F03.90 [facility] [address] [address] 0271 Aug, [facility] [id number] [place] [address] 41899- 6078 Aug, [facility] [id number] [place] [address] [id number] Aug, [facility] [address] [address] 1301 Aug, [facility] [address] [place] [address] 04174- 8239 Aug, Acute deep vein thrombosis (DVT) of proximal vein of left lower extremity I82.4Y2 [facility] [address] [place] [id number] Aug, Left leg swelling M79.89 [place] [id number] [place] [address] 55321- 5706 Aug, Mood disorder F39 and Dementia without behavioral disturbance, unspecified dementia type F03.90 [place] [id number] [place] [address] 02112- 9611 Jul, [place] [id number] [place] [address] 43308- 0931 Jul, Dementia without behavioral disturbance, unspecified dementia type F03.90 and Mood disorder F39 [facility] [address] [place] [id number] Jul, Encounter for examination for admission to snf Z02.2 ; Rectal bleed K62.5 ; Dementia without behavioral disturbance, unspecified dementia type F03.90 ; Hypertension, benign I10 ; Edema R60.9 and Major depression F32.9 [facility] [id number] [place] [address] [id number] Jul, [facility] [id number] [place] [address] 20941- 2853 Apr, Dementia without behavioral disturbance, unspecified dementia type F03.90 and Mood disorder F39 [facility] [address] [place] [address] 87679- 1334 Apr, [place] [id number] [place] [address] 26055- 6527 Feb, Hypertension, benign I10 [facility] [id number] [place] [address] 12350- 2114 Dec, Major depression F32.9 ; Anxiety disorder, unspecified F41.9 ; Cognitive dysfunction F09 and Dementia without behavioral disturbance, unspecified dementia type F03.90 [facility] [id number] [place] [address] 28821- 1976 October, Hypertension, benign I10 [facility] [id number] [place] [address] 89698- 0593 Sep, Major depression F32.9 ; Anxiety disorder, unspecified F41.9 and Cognitive dysfunction F09 [facility] [id number] [place] [address] 44660- 1988 Apr, Major depression F32.9 and Cognitive dysfunction F09 [facility] [id number] [place] [address] 58366- 2626 Jan, Anxiety disorder, unspecified F41.9 ; Major depression F32.9 and Cognitive dysfunction F09 [facility] [id number] [place] [address] 60327- 1740 Jan, [facility] [id number] [place] [address] 26054- 0900 Dec, [facility] [id number] [place] [address] 92153- 1850 Dec, [facility] [id number] [place] [address] 43527- 6726 Nov, Anxiety disorder, unspecified F41.9 ; Major depression F32.9 and Cognitive dysfunction F09 [facility] [id number] [place] [address] 03311- 5355 October, Dementia without behavioral disturbance, unspecified dementia type F03.90 [facility] [id number] [place] [address] 59512- 6009 Sep, Cognitive dysfunction F09 and Edema R60.9 [facility] [id number] [place] [address] 10323- 4541 Sep, Cognitive dysfunction F09 and Edema R60.9 [facility] [id number] [place] [address] 18446- 5755 Aug, 2016 Self-care deficit for medication administration R41.89 ; Self-care deficit in patient living alone R46.89 and Cognitive dysfunction F09 [place] [id number] [place] [id number] Aug, 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 and Unspecified intracranial injury without loss of consciousness, sequela S06.9X0S [place] [id number] [place] [address] 29191- 2100 Jul, [place] [address] 21829- 4768 Jun, Anxiety disorder, unspecified F41.9 and Major depression F32.9 [place] [id number] [place] [address] 16332- 5644 Jun, [place] [address] 38074- 0851 May, [place] [id number] [place] [address] 81316- 1704 May, Nausea R11.0 [place] [address] 05351- 5159 Apr, [place] [id number] [place] [address] 07392- 3567 Mar, Major depression F32.9 [place] [id number] [place] [address] 18219- 9666 Mar, Encounter for immunization Z23 [place] [id number] [place] [address] 23276- 3267 Mar, Major depression F32.9 and Anxiety disorder, unspecified F41.9 [place] [id number] [place] [address] 43176- 1708 Dec, Major depression, chronic 296.20 and Anxiety disorder, unspecified 300.00 [place] [address] [place] [address]- 5354 October, Hypertension 401.9 [facility] [place] [facility] [address] [id number] [place] [address]- 5916 14 Sep, 2014 [facility] [place] [facility] [address] [id number] [place] [address]- 1176 13 Sep, 2014 [facility] [place] [facility] [address] [id number] [place] [address]- 0421 18 Jul, 2014 [facility] [place] [facility] [address] [id number] [place] [address]- 8977 Jul, [facility] [place] [facility] [address] [id number] [place] [address]- 9405 Jul, [facility] [place] [facility] [address] [facility] [id number] [place] [address]- 5037 May, [facility] [place] [facility] [address] [id number] [place] [address]- 7954 May, [facility] [place] [facility] [address] [id number] [place] [address]- 2339 May, [facility] [place] [facility] [address] [facility] [id number] [place] [address]- 3487 May, [facility] [place] [facility] [address] [facility] [id number] [place] [address]- 2545 Apr, [facility] [place] [facility] [address] [facility] [id number] [place] [address]- 0066 Apr, [facility] [place] [facility] [address] [id number] [place] [address]- 2544 Feb, [facility] [place] [facility] [address] [id number] [place] [address]- 8716 Feb, [facility] [place] [facility] [address] [facility] [id number] [place] [address]- 7932 Jan, [facility] [place] [facility] [address] [facility] [id number] [place] [address]- 3284 Jan, [facility] [place] [facility] [address] [id number] [place] [address]- 0759 Jan, [facility] [place] [facility] [address] [id number] [place] [address]- 6902 Jan, [facility] [place] [facility] [address] [id number] [place] [address]- 1930 Dec, [facility] [place] [facility] [address] [id number] [place] [address]- 5445 Dec, [facility] [place] [facility] [address] [id number] [place] [address]- 0843 Nov, [facility] [place] [facility] [address] [id number] [place] [address]- 1537 Nov, [facility] [place] [facility] [address] [id number] [place] [address]- 1267 Nov, [facility] [place] [facility] [address] [id number] [place] [address]- 3812 Nov, [facility] [place] [facility] [address] [id number] [place] [address]- 8585 October, [facility] [place] [facility] [address] [id number] [place] [address]- 1212 October, [facility] [place] [facility] [address] [id number] [place] [address]- 3449 Sep, [facility] [place] [facility] [address] [id number] [place] [address]- 1316 Sep, [facility] [place] [facility] [address] [id number] [place] [address]- 8215 Sep, [facility] [place] [facility] [address] [id number] [place] [address]- 2187 Sep, [facility] [place] [facility] [address] [id number] [place] [address]- 1916 Sep, [facility] [place] [facility] [address] [id number] [place] [address]- 7579 Sep, [facility] [address] [id number] [place] [address]- 1576 Aug, [facility] [place] [facility] [address] [id number] [place] 5026 Aug, [facility] [place] [facility] [address] [id number] [place] [address]- 4076 Jul, [facility] [place] [facility] [address] [id number] [place] [address]- 5766 Jul, [facility] [place] [facility] [address] [id number] [place] [address]- 4573 May, [facility] [place] [facility] [address] [id number] [place] [address]- 6444 May, [facility] [address] [id number] [place] [address]- 7695 May, [facility] [place] [facility] [address] [id number] [place] [address]- 4192 May, [facility] [place] [facility] [address] [id number] [place] [address]- 1991 May, [facility] [place] [facility] [address] [id number] [place] [address]- 5283 May, [facility] [place] [facility] [address] [id number] [place] [address] 2546 Apr, [facility] [place] [facility] [address] [id number] [place] [address]- 2548 Apr, [facility] [place] [facility] [address] [id number] [place] [address]- 8903 Apr, [facility] [place] [facility] [address] [id number] [place] [address]- 2540 Apr, [facility] [place] [facility] [address] [id number] [place] 1176 Apr, [facility] [place] [facility] [address] [id number] [place] [address] 2540 Apr, [facility] [address] [id number] [place] [address]- 9450 Feb, [facility] [address] [id number] [place] [address]- 2447 Feb, [facility] [address] [id number] [place] [address]- 6104 Feb, [facility] [address] [id number] [place] [address]- 7326 Feb, [facility] [address] [id number] [place] [address]- 5805 Jan, [facility] [address] [id number] [place] [address]- 0914 Dec, [facility] [address] [id number] [place] [address]- 9279 Dec, [facility] [address] [id number] [place] [address]- 6468 Dec, [facility] [address] [id number] [place] [address]- 6741 Dec, [facility] [address] [id number] [place] [address]- 6571 Nov, [facility] [address] [id number] [place] [address]- 2549 Nov, [facility] [place] [facility] [address] [id number] [place] [address]- 5662 October, [facility] [place] [facility] [address] [id number] [place] [address]- 8666 October, [facility] [place] [facility] [address] [id number] [place] [address]- 2541 October, [facility] [place] [facility] [address] [id number] [place] [address]- 0167 October, [facility] [address] [id number] [place] [address]- 1060 16 Sep, 2012 [facility] [place] [facility] [address] [id number] [place] [address]- 5016 Aug, [facility] [place] [facility] [address] [id number] [place] [address]- 1317 Aug, [facility] [place] [facility] [address] [id number] [place] [address]- 2596 15 Aug, 2012 [facility] [address] [id number] [place] [address]- 1175 Aug, [facility] [place] [facility] [address] [id number] [place] [address]- 6324 26 Jul, 2012 [facility] [address] [facility] [id number] [place] [address]- 7991 Jul, [facility] [place] [facility] [address] [id number] [place] [address]- 1924 Jul, [facility] [address] [facility] [id number] [place] [address]- 9018 Jun, [facility] [address] [facility] [id number] [place] [address]- 1866 Jun, [facility] [address] [facility] [id number] [place] [address]- 1055 May, [facility] [place] [facility] [address] [id number] [place] [address]- 3212 May, [facility] [place] [facility] [address] [id number] [place] [address]- 2284 Apr, [facility] [place] [facility] [address] [id number] [place] [address]- 1528 Apr, [facility] [place] [facility] [address] [facility] [id number] [place] [address]- 2132 Apr, [facility] [place] [facility] [address] [id number] [place] [address]- 1947 Apr, [facility] [place] [facility] [address] [id number] [place] [address]- 7070 Apr, [facility] [place] [facility] [address] [id number] [place] [address]- 0732 Apr, [facility] [place] [facility] [address] [id number] [place] [address]- 9045 Mar, [facility] [place] [facility] [address] [id number] [place] [address]- 6035 Mar, [facility] [place] [facility] [address] [id number] [place] [address]- 2957 Mar, [facility] [place] [facility] [address] [id number] [place] 5480 Mar, [facility] [place] [facility] [address] [id number] [place] [address]- 9950 Mar, [facility] [place] [facility] [address] [id number] [place] 8226 Mar, [facility] [place] [facility] [address] [id number] [place] [address]- 8229 Mar, [facility] [place] [facility] [address] [id number] [place] [address]- 8941 Feb, [facility] [place] [facility] [address] [id number] [place] [address]- 4794 Feb, [facility] [place] [facility] [address] [id number] [place] [address]- 1517 Jan, [facility] [place] [facility] [address] [id number] [place] [address]- 2252 Dec, [facility] [place] [facility] [address] [id number] [place] [address]- 2546 Dec, [facility] [place] [facility] [address] [id number] [place] [address]- 5046 Nov, [facility] [place] [facility] [address] [id number] [place] [address]- 1697 Nov, [facility] [place] [facility] [address] [id number] [place] [address]- 2429 Nov, [facility] [place] [facility] [address] [id number] [place] [address]- 0177 October, [facility] [place] [facility] [address] [id number] [place] [address]- 7214 Sep, [facility] [place] [facility] [address] [id number] [place] [address]- 9885 16 Sep, 2011 [facility] [place] [facility] [address] [id number] [place] [address]- 7673 Sep, [facility] [place] [facility] [address] [id number] [place] [address]- 2167 Aug, [facility] [place] [facility] [address] [id number] [place] [address]- 9261 Aug, [facility] [place] [facility] [address] [id number] [place] [address]- 7481 Aug, [facility] [place] [facility] [address] [id number] [place] [address]- 7219 15 Aug, 2011 [facility] [place] [facility] [address] [id number] [place] [address]- 8727 14 Aug, 2011 [facility] [place] [facility] [address] [id number] [place] [address]- 5470 12 Aug, 2011 [facility] [place] [facility] [address] [id number] [place] [address]- 5475 08 Aug, 2011 [facility] [place] [facility] [address] [id number] [place] [address]- 9507 05 Aug, 2011 [facility] [place] [facility] [address] [id number] [place] [address]- 0394 Jul, [facility] [place] [facility] [address] [id number] [place] [address]- 8216 22 Jul, 2011 [facility] [address] [id number] [place] [address] 2546 20 Jul, 2011 [facility] [place] [facility] [address] [id number] [place] [address] 2546 15 Jul, 2011 [facility] [address] [id number] [place] [address] 2546 06 Jul, 2011 [facility] [place] [facility] [address] [id number] [place] [address] 2546 Jul, [facility] [address] [id number] [place] [address]- 6266 Jun, [facility] [address] [id number] [place] [address] 2548 Jun, [facility] [address] [id number] [place] [address] 254 Jun, [facility] [address] [id number] [place] [address]- 2126 Jun, [facility] [address] [id number] [place] [address] 2547 May, [facility] [address] [id number] [place] [address] 2543 May, [facility] [address] [id number] [place] [address] 2546 May, [facility] [place] [facility] [address] [id number] [place] [address] 2546 May, [facility] [place] [facility] [address] [id number] [place] [address] 2546 May, [facility] [place] [facility] [address] [id number] [place] [address] 2546 30 Apr, 2011 [facility] [place] [facility] [address] [id number] [place] 9981 Apr, [facility] [address] [facility] [id number] [place] [address]- 0254 Mar, [facility] [address] [facility] [id number] [place] [address]- 1719 15 Feb, 2011 [facility] [address] [facility] [id number] [place] [address] Feb, [facility] [address] [facility] [id number] [place] [address] May, [facility] [address] [facility] [id number] [place] [address] Apr, [facility] [address] [facility] [id number] [place] [address] Apr, [facility] [id number] [place] [address] Apr, [facility] [id number] [place] [address] Apr, [facility] [id number] [place] [address] Apr, [facility] [id number] [place] [address] Apr, [facility] [id number] [place] [address] Mar, [facility] [id number] [place] [address] Mar, [facility] [id number] [place] [address] Sep, IMMUNIZATIONS No Known Immunizations SOCIAL HISTORY Never Assessed REASON FOR VISIT Med refills PLAN OF CARE VITAL SIGNS MEDICATIONS Medication Instructions Dosage Frequency Start Date End Date Duration Status BusPIRone HCl 10 mg Orally Twice a day 1 tablet 12h 30 days Active Trihexyphenidyl HCl 2 MG Orally twice a day 0.5 tablet 12h 28 Jul, 2017 30 days Active Pantoprazole Sodium 40 mg Orally Once a day 1 tablet 24h 30 days Active Lovastatin 20 mg Orally Once a day 1 tablet with a meal 24h 30 days Active Lisinopril 10 mg Orally Once a day 1 tablet 24h 30 days Active Eliquis 5 mg Orally 2 times a day 2 tabs 12h Aug, 07 days Active Seroquel 300 MG Orally Once a day 1 tablet 24h Sep, 30 day(s) Active RESULTS No Results PROCEDURES [...] attempts Hospitalization History Ischemic colitis, dementia, generalized debility-[facility] 07/30/17
--- OUTSIDE RECORDS SUMMARY | 2018-06-23 23:19 | XMS REPORT ---
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 Name Role Phone SAADBRYCE WHIT Unavailable PROBLEMS Type Condition ICD9-CM Code GDD19-AV Code Onset Dates Condition Status SNOMED Code Problem Mood disorder F39 Active 99230762 Problem Dementia without behavioral disturbance, unspecified dementia type F03.90 Active 83879698 Problem Hypertension, benign I10 Active 42638490 Problem Cognitive dysfunction F09 Active 783663848 Problem 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 346834014 Problem Anxiety disorder, unspecified F41.9 Active 761702414 Problem Major depression F32.9 Active 282971614 ALLERGIES No Information ENCOUNTERS Encounter Location Date Diagnosis [facility] [id number] [place] [address] 29915- 2035 Jan, [facility] [id number] [place] [address] 07587- 3518 Jan, [facility] [id number] [place] [address] 61156- 2705 Dec, Mood disorder F39 [facility] [id number] [place] [address] 24825- 4075 Dec, Mood disorder F39 [facility] [id number] [place] [address] 40003- 4144 Nov, [facility] [id number] [place] [address] 93097- 9386 Nov, Dementia without behavioral disturbance, unspecified dementia type F03.90 ; Cognitive dysfunction F09 and Major depression F32.9 [facility] [address] [place] [address] October, Encounter for examination for admission to half-way Z02.2 ; Tardive dyskinesia G24.01 ; Major depression F32.9 ; Anxiety disorder, unspecified F41.9 ; Cognitive dysfunction F09 and Dementia without behavioral disturbance, unspecified dementia type F03.90 [facility] [id number] [place] [address] 03053- 0989 October, [facility] [id number] [place] [address] 89903- 9052 October, [facility] [id number] [place] [address] 42567- 4088 Sep, Acute deep vein thrombosis (DVT) of proximal vein of left lower extremity I82.4Y2 [facility] [id number] [place] [address] 78294- 0352 Sep, Mood disorder F39 and Dementia associated with other underlying disease without behavioral disturbance F02.80 [facility] [id number] [place] [address] 06631- 8559 Sep, Mood disorder F39 and Acute deep vein thrombosis (DVT) of proximal vein of left lower extremity I82.4Y2 [facility] [id number] [place] [address] 74339- 9716 Sep, [facility] [address] [place] [id number] Sep, History of DVT (deep vein thrombosis) Z86.718 and Dementia F03.90 [facility] [id number] [place] [address] 55780- 2109 Sep, Mood disorder F39 and Dementia without behavioral disturbance, unspecified dementia type F03.90 [facility] [id number] [place] [address] 48397- 1873 Aug, [facility] [id number] [place] [address] 23580- 0293 Aug, [facility] [id number] [place] [address] [id number] Aug, [facility] [address] [address] 3874 Aug, [facility] [address] [place] [address] 39832- 6180 Aug, Acute deep vein thrombosis (DVT) of proximal vein of left lower extremity I82.4Y2 [facility] [address] [place] [id number] Aug, Left leg swelling M79.89 [facility] [id number] [place] [address] 60458- 6902 Aug, Mood disorder F39 and Dementia without behavioral disturbance, unspecified dementia type F03.90 [facility] [id number] [place] [address] 00580- 5588 Jul, [facility] [id number] [place] [address] 63043- 4588 Jul, Dementia without behavioral disturbance, unspecified dementia type F03.90 and Mood disorder F39 [facility] [address] [place] [id number] Jul, Encounter for examination for admission to half-way Z02.2 ; Rectal bleed K62.5 ; Dementia without behavioral disturbance, unspecified dementia type F03.90 ; Hypertension, benign I10 ; Edema R60.9 and Major depression F32.9 [facility] [id number] [id number] Jul, [facility] [address] [place] [address] 82792- 9352 Apr, Dementia without behavioral disturbance, unspecified dementia type F03.90 and Mood disorder F39 [facility] [id number] [place] [address] 84904- 4142 Apr, [facility] [id number] [place] [address] 10424- 3936 15 Feb, 2017 Hypertension, benign I10 [facility] [id number] [place] [address] 23956- 2928 Dec, Major depression F32.9 ; Anxiety disorder, unspecified F41.9 ; Cognitive dysfunction F09 and Dementia without behavioral disturbance, unspecified dementia type F03.90 [facility] [id number] [place] [address] 58048- 5755 October, Hypertension, benign I10 [facility] [id number] [place] [address] 33400- 3645 Sep, Major depression F32.9 ; Anxiety disorder, unspecified F41.9 and Cognitive dysfunction F09 [facility] [id number] [place] [address] 833359- 4061 Apr, Major depression F32.9 and Cognitive dysfunction F09 [facility] [id number] [place] [address] 44709- 7883 Jan, Anxiety disorder, unspecified F41.9 ; Major depression F32.9 and Cognitive dysfunction F09 [facility] [id number] [place] [address] 47632- 0816 Jan, [facility] [id number] [place] [address] 86571- 5762 Dec, [facility] [id number] [place] [address] 73204- 1567 Dec, [facility] [id number] [place] [address] 22001- 8908 Nov, Anxiety disorder, unspecified F41.9 ; Major depression F32.9 and Cognitive dysfunction F09 [facility] [id number] [place] [address] 19666- 6324 October, Dementia without behavioral disturbance, unspecified dementia type F03.90 [facility] [id number] [place] [address] 46076- 3842 Sep, Cognitive dysfunction F09 and Edema R60.9 [facility] [id number] [place] [address] 10383- 4079 25 Apr, 2016 Cognitive dysfunction F09 and Edema R60.9 [facility] [id number] [place] [address] 74155- 8934 28 Aug, 2016 Self-care deficit for medication administration R41.89 ; Self-care deficit in patient living alone R46.89 and Cognitive dysfunction F09 [facility] [id number] [place] [address] 18362- 7283 Aug, 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 and Unspecified intracranial injury without loss of consciousness, sequela S06.9X0S [facility] [id number] [place] [address] 76682- 5408 Jul, [facility] [address] 83443- 0705 Jun, Anxiety disorder, unspecified F41.9 and Major depression F32.9 [facility] [address] 67142- 7434 Jun, [facility] [id number] [place] [address] 17996- 0029 May, [facility] [address] 36452- 2649 May, Nausea R11.0 [facility] [id number] [place] [address] 95779- 9771 Apr, [facility] [id number] [place] [address] 24960- 5427 Mar, Major depression F32.9 [facility] [id number] [place] [address] 52439- 4727 Mar, Encounter for immunization Z23 [facility] [address] 30806- 0249 Mar, Major depression F32.9 and Anxiety disorder, unspecified F41.9 [facility] [address] 70223- 0386 Dec, Major depression, chronic 296.20 and Anxiety disorder, unspecified 300.00 [facility] [id number] [place] [address] 56110- 6709 October, Hypertension 401.9 [facility] [id number] [address]- 4831 14 Sep, 2014 [facility] [id number] [place] [address] 33369- 6122 Sep, [facility] [id number] [place] [address] 46368- 4817 18 Jul, 2014 [facility] [id number] [place] [address], [place]- 1217 Jul, [facility] [id number] [place] [address], [place] [address]- 1895 Jul, [facility] [id number] [place] [address], [place] [address]- 0587 May, [facility] [address] [address]- 5518 May, [facility] [id number] [place] [address], [place] [address]- 0557 May, [facility] [address] [address]- 9704 May, [facility] [address] [address]- 4065 Apr, [facility] [address] [address]- 1370 Apr, [facility] [id number] [place] [address], [place] [address]- 8722 Feb, [facility] [address] [address]- 2540 Feb, [facility] [address] [place] [address] [id number]- 3559 Jan, [facility] [place] [facility] [address] [id number] [place] [address]- 4647 Jan, [facility] [place] [facility] [address] [id number] [place] [address]- 9693 Jan, [facility] [place] [facility] [address] [id number] [place] [address]- 4306 Jan, [facility] [place] [facility] [address] [id number] [place] [address]- 7506 Dec, [facility] [place] [facility] [address] [id number] [place] [address]- 0289 Dec, [facility] [place] [facility] [address] [id number] [place] [address]- 6728 Nov, [facility] [place] [facility] [address] [id number] [place] [address]- 5687 Nov, [facility] [place] [facility] [address] [id number] [place] [address]- 0310 Nov, [facility] [place] [facility] [address] [id number] [place] [address]- 3074 Nov, [facility] [place] [facility] [address] [id number] [place] [address]- 1885 October, [facility] [place] [facility] [address] [id number] [place] [address]- 0064 October, [facility] [place] [facility] [address] [id number] [place] [address]- 9337 Sep, [facility] [place] [facility] [address] [id number] [place] [address]- 4530 Sep, [facility] [place] [facility] [address] [id number] [place] [address]- 3906 Sep, [facility] [place] [facility] [address] [id number] [place] [address]- 7986 Sep, [facility] [place] [facility] [address] [id number] [place] [address]- 0728 Sep, [facility] [address] [id number] [place] [address]- 9442 Sep, [facility] [address] [id number] [place] [address]- 7674 Aug, [facility] [address] [id number] [place] 0778 Aug, [facility] [place] [facility] [address] [id number] [place] [address]- 8550 Jul, [facility] [address] [id number] [place] 9317 Jul, [facility] [address] [id number] [place] [address]- 5342 May, [facility] [address] [id number] [place] [address]- 6967 May, [facility] [address] [id number] [place] [address]- 2241 May, [facility] [address] [id number] [place] [address]- 9114 May, [facility] [address] [id number] [place] [address]- 8564 May, [facility] [address] [id number] [place] [address]- 7007 May, [facility] [place] [facility] [address] [id number] [place] [address]- 1840 Apr, [facility] [place] [facility] [address] [id number] [place] [address]- 8100 Apr, [facility] [place] [facility] [address] [id number] [place] [address]- 7462 Apr, [facility] [place] [facility] [address] [id number] [place] [address]- 7167 Apr, [facility] [place] [facility] [address] [id number] [place] [address]- 3269 Apr, [facility] [place] [facility] [address] [id number] [place] [address]- 3207 Apr, [facility] [place] [facility] [address] [id number] [place] [address]- 2445 Feb, [facility] [place] [facility] [address] [id number] [place] [address]- 9097 Feb, [facility] [place] [facility] [address] [id number] [place] [address]- 6046 Feb, [facility] [place] [facility] [address] [id number] [place] [address]- 8570 Feb, [facility] [place] [facility] [address] [id number] [place] [address]- 3948 Jan, [facility] [place] [facility] [address] [id number] [place] [address]- 4180 Dec, [facility] [place] [facility] [address] [id number] [place] [address]- 2405 Dec, [facility] [place] [facility] [address] [id number] [place] [address]- 2538 Dec, [facility] [place] [facility] [address] [id number] [place] [address]- 8604 Dec, [facility] [place] [facility] [address] [id number] [place] [address]- 5941 Nov, [facility] [place] [facility] [address] [id number] [place] [address]- 8652 Nov, [facility] [place] [facility] [address] [id number] [place] [address]- 5286 October, [facility] [place] [facility] [address] [id number] [place] [address]- 5212 October, [facility] [place] [facility] [address] [id number] [place] [address]- 3876 October, [facility] [address] [id number] [place] [address]- 4420 October, [facility] [address] [id number] [place] [address]- 9856 Sep, [facility] [address] [id number] [place] [address]- 4238 Aug, [facility] [place] [facility] [address] [id number] [place] [address]- 9798 Aug, [facility] [address] [id number] [place] [address]- 5651 Aug, [facility] [address] [id number] [place] [address]- 5096 Aug, [facility] [address] [id number] [place] [address]- 8668 Jul, [facility] [place] [facility] [address] [id number] [place] [address]- 9178 Jul, [facility] [address] [id number] [place] [address]- 8410 Jul, [facility] [address] [id number] [place] [address]- 3068 Jun, [facility] [address] [id number] [place] [address]- 3886 Jun, [facility] [place] [facility] [address] [id number] [place] [address] 2548 May, [facility] [place] [facility] [address] [id number] [place] [address]- 2226 May, [facility] [place] [facility] [address] [id number] [place] [address]- 9604 Apr, [facility] [place] [facility] [address] [id number] [place] [address]- 5386 Apr, [facility] [place] [facility] [address] [id number] [place] [address]- 0105 Apr, [facility] [place] [facility] [address] [id number] [place] [address]- 8249 Apr, [facility] [place] [facility] [address] [id number] [place] [address]- 6919 Apr, [facility] [place] [facility] [address] [id number] [place] [address]- 0731 Apr, [facility] [place] [facility] [address] [id number] [place] [address]- 5566 Mar, [facility] [place] [facility] [address] [id number] [place] [address]- 4764 Mar, [facility] [place] [facility] [address] [id number] [place] [address]- 6093 Mar, [facility] [place] [facility] [address] [id number] [place] [address]- 5878 Mar, [facility] [place] [facility] [address] [id number] [place] [address]- 1455 Mar, [facility] [place] [facility] [address] [id number] [place] [address]- 3731 Mar, [facility] [place] [facility] [address] [id number] [place] [address]- 5834 Mar, [facility] [place] [facility] [address] [id number] [place] [address]- 1707 Feb, [facility] [place] [facility] [address] [id number] [place] [address]- 7104 Feb, [facility] [place] [facility] [address] [id number] [place] [address]- 2166 Jan, [facility] [place] [facility] [address] [id number] [place] [address]- 2546 Dec, [facility] [place] [facility] [address] [id number] [place] [address]- 6362 Dec, [facility] [place] [facility] [address] [id number] [place] [address]- 2265 Nov, [facility] [place] [facility] [address] [id number] [place] [address]- 2978 Nov, [facility] [place] [facility] [address] [id number] [place] [address]- 2422 Nov, [facility] [place] [facility] [address] [id number] [place] [address]- 7806 October, [facility] [place] [facility] [address] [id number] [place] [address]- 9635 Sep, [facility] [place] [facility] [address] [id number] [place] [address]- 4169 16 Sep, 2011 [facility] [place] [facility] [address] [id number] [place] [address]- 0263 Sep, [facility] [place] [facility] [address] [id number] [place] [address]- 8643 26 Aug, 2011 [facility] [place] [facility] [address] [id number] [place] [address]- 6584 21 Aug, 2011 [facility] [place] [facility] [address] [id number] [place] [address]- 4407 20 Aug, 2011 [facility] [place] [facility] [address] [id number] [place] [address]- 6046 15 Aug, 2011 [facility] [place] [facility] [address] [id number] [place] [address]- 3901 14 Aug, 2011 [facility] [place] [facility] [address] [id number] [place] [address]- 3564 12 Aug, 2011 [facility] [place] [facility] [address] [id number] [place] [address]- 8163 08 Aug, 2011 [facility] [place] [facility] [address] [id number] [place] [address]- 0717 05 Aug, 2011 [facility] [place] [facility] [address] [id number] [place] [address]- 6889 27 Jul, 2011 [facility] [address] [id number] [place] [address]- 9176 Jul, [facility] [place] [facility] [address] [id number] [place] [address] 2546 20 Jul, 2011 [facility] [address] [id number] [place] [address] 2546 15 Jul, 2011 [facility] [place] [facility] [address] [id number] [place] [address] 2546 06 Jul, 2011 [facility] [address] [id number] [place] [address]- 6866 Jul, [facility] [address] [id number] [place] [address]- 5593 Jun, [facility] [address] [id number] [place] [address]- 4650 Jun, [facility] [address] [id number] [place] [address]- 1280 Jun, [facility] [address] [id number] [place] [address]- 0164 Jun, [facility] [address] [id number] [place] [address]- 4408 29 May, 2011 [facility] [address] [id number] [place] [address] 2546 May, [facility] [place] [facility] [address] [id number] [place] [address] 2546 May, [facility] [place] [facility] [address] [id number] [place] [address] 2546 May, [facility] [place] [facility] [address] [id number] [place] [address]- 2546 May, [facility] [place] [facility] [address] [id number] [place] 4813 30 Apr, 2011 [facility] [address] [facility] [id number] [address]- 0797 14 Apr, 2011 [facility] [address] [facility] [id number], [place] [address] Mar, [facility] [address] [facility] [id number], [place] [address] 15 Feb, 2011 [facility] [address] [facility] [id number], [place] [address] Feb, [facility] [address] [facility] [id number], [place] [address] May, [facility] [address] [facility] [id number], [place] [address] Apr, [facility] [id number] [address] Apr, [facility] [id number] [address] Apr, [facility] [id number], [place] [address] Apr, [facility] [id number], [place] [address] Apr, [facility] [id number], [place] [address] Apr, [facility] [address] [id number], [place] [address] Mar, [facility] [address] [id number], [place] [address] Mar, [facility] [id number], [place] [address] Sep, IMMUNIZATIONS No Known Immunizations SOCIAL HISTORY Never Assessed REASON FOR VISIT BH f/u [facility] PLAN OF CARE Activity Details Follow Up 4 Months, prn Reason: VITAL SIGNS Height 68.25 in 2017-10-03 Weight 193 lbs 2017-10-03 Heart Rate 100 bpm 2017-10-03 Respiratory Rate 20 2017-10-03 BMI 29.13 kg/m2 2017-10-03 Blood pressure systolic 128 mmHg 2017-10-03 Blood pressure diastolic 82 mmHg 2017-10-03 MEDICATIONS Medication Instructions Dosage Frequency Start Date End Date Duration Status Lovastatin 20 mg Orally Once a day 1 tablet with a meal 24h 30 days Active Tylenol 325 MG Orally every 4 hrs 2 tablets as needed 4h 14 Aug, 2017 Active Eliquis 5 mg Orally 2 times a day 2 tabs 12h 06 Aug, 2017 07 days Active Nicoderm CQ 14 MG/24HR Transdermal Once a day 1 patch to skin 24h Not-Taking Lisinopril 10 mg Orally Once a day 1 tablet 24h 30 days Active Seroquel 300 MG Orally Once a day 1 tablet 24h 05 Sep, 2017 Active Trihexyphenidyl HCl 2 MG Orally twice a day 0.5 tablet 12h 28 Jul, 2017 Active Pantoprazole Sodium 40 mg Orally Once a day 1 tablet 24h 30 days Active BusPIRone HCl 10 mg Orally Twice a day 1 tablet 12h Active RESULTS No Results PROCEDURES Procedure Date Ordered Result Body Site [facility] VISIT ESTABLISHED PATIENT October 03, 2017 INSTRUCTIONS MEDICATIONS ADMINISTERED No Known Medications [...] attempts Hospitalization History Ischemic colitis, dementia, generalized debility-[facility] 07/30/17
--- OUTSIDE RECORDS SUMMARY | 2018-06-23 23:20 | XMS REPORT ---
Author Author CARO CAMARA Organization [facility] Address [address] [place] [address] Care Team Providers Care Patternmaker Sample Name Role Phone CARO CAMARA Unavailable PROBLEMS Type Condition ICD9-CM Code OIP13-DY Code Onset Dates Condition Status SNOMED Code Problem Mood disorder F39 Active 88250219 Problem Dementia without behavioral disturbance, unspecified dementia type F03.90 Active 10407892 Problem Hypertension, benign I10 Active 68200017 Problem Cognitive dysfunction F09 Active 443901077 Problem 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 512402569 Problem Anxiety disorder, unspecified F41.9 Active 612770103 Problem Major depression F32.9 Active [id number] ALLERGIES No Information ENCOUNTERS Encounter Location Date Diagnosis [facility] [id number] [place] [address] 59056- 2959 Jan, [facility] [id number] [place] [address] 75788- 5247 Dec, Mood disorder F39 [facility] [id number] [place] [address] 10345- 7308 Dec, Mood disorder F39 [place] [id number] [place] [address] 58499- 8554 Nov, [place] [id number] [place] [address] 81625- 1391 Nov, Dementia without behavioral disturbance, unspecified dementia type F03.90 ; Cognitive dysfunction F09 and Major depression F32.9 [facility] [address] [place] [address] October, Encounter for examination for admission to mcc Z02.2 ; Tardive dyskinesia G24.01 ; Major depression F32.9 ; Anxiety disorder, unspecified F41.9 ; Cognitive dysfunction F09 and Dementia without behavioral disturbance, unspecified dementia type F03.90 [facility] [address] [address] October, [facility] [address], [place] [address] 5[address] October, [facility] [id number] [place] [address] 28983- 2873 Sep, Acute deep vein thrombosis (DVT) of proximal vein of left lower extremity I82.4Y2 [facility] [address] [place] [address] 75417- 9384 Sep, Mood disorder F39 and Dementia associated with other underlying disease without behavioral disturbance F02.80 [facility] [address] [address] 2851 Sep, Mood disorder F39 and Acute deep vein thrombosis (DVT) of proximal vein of left lower extremity I82.4Y2 [facility] [address] [address] 9588 16 Sep, 2017 [address] [place] [address] [place] [id number] Sep, History of DVT (deep vein thrombosis) Z86.718 and Dementia F03.90 [facility] [address], [place] [address] 99[address] Sep, Mood disorder F39 and Dementia without behavioral disturbance, unspecified dementia type F03.90 [facility] [address], [place] [address] 3267 Aug, [facility] [id number] [place] [address] 01957- 6481 Aug, [facility] [place] [id number] [place] [address] [id number] Aug, [facility] [address], [place] [address] 6859 Aug, [facility] [id number] [place] [address] 59055- 1405 Aug, Acute deep vein thrombosis (DVT) of proximal vein of left lower extremity I82.4Y2 [facility] [employer] [address] [place] [id number] Aug, Left leg swelling M79.89 [place] [id number] [place] [address] 13605- 3373 Aug, Mood disorder F39 and Dementia without behavioral disturbance, unspecified dementia type F03.90 [place] [id number] [place] [address] 01813- 0196 Jul, [place] [id number] [place] [address] 53931- 8809 Jul, Dementia without behavioral disturbance, unspecified dementia type F03.90 and Mood disorder F39 [facility] [address] [place] [id number] Jul, Encounter for examination for admission to mcc Z02.2 ; Rectal bleed K62.5 ; Dementia without behavioral disturbance, unspecified dementia type F03.90 ; Hypertension, benign I10 ; Edema R60.9 and Major depression F32.9 [facility] [place] [id number] [place] [address] [id number] Jul, [facility] [id number] [place] [address] 01473- 4939 Apr, Dementia without behavioral disturbance, unspecified dementia type F03.90 and Mood disorder F39 [facility] [id number] [place] [address] 49762- 1748 Apr, [place] [id number] [place] [address] 96700- 9519 Feb, Hypertension, benign I10 [facility] [id number] [place] [address] 81544- 3177 Dec, Major depression F32.9 ; Anxiety disorder, unspecified F41.9 ; Cognitive dysfunction F09 and Dementia without behavioral disturbance, unspecified dementia type F03.90 [facility] [id number] [place] [address] 08060- 8031 October, Hypertension, benign I10 [facility] [id number] [place] [address] 32018- 7139 Sep, Major depression F32.9 ; Anxiety disorder, unspecified F41.9 and Cognitive dysfunction F09 [facility] [id number] [place] [address] 78314- 4579 Apr, Major depression F32.9 and Cognitive dysfunction F09 [facility] [id number] [place] [address] 47001- 6649 Jan, Anxiety disorder, unspecified F41.9 ; Major depression F32.9 and Cognitive dysfunction F09 [facility] [id number] [place] [address] 99114- 7926 Jan, [facility] [id number] [place] [address] 14837- 5397 Dec, [facility] [id number] [place] [address] 12603- 2986 Dec, [facility] [id number] [place] [address] 51792- 7861 Nov, Anxiety disorder, unspecified F41.9 ; Major depression F32.9 and Cognitive dysfunction F09 [facility] [id number] [place] [address] 63414- 4719 October, Dementia without behavioral disturbance, unspecified dementia type F03.90 [facility] [id number] [place] [address] 83992- 1252 Sep, Cognitive dysfunction F09 and Edema R60.9 [facility] [id number] [place] [address] 96542- 0181 Sep, Cognitive dysfunction F09 and Edema R60.9 [facility] [id number] [place] [address] 32595- 4803 Aug, 2016 Self-care deficit for medication administration R41.89 ; Self-care deficit in patient living alone R46.89 and Cognitive dysfunction F09 [place] [id number] [place] [id number] 1450 Aug, 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 and Unspecified intracranial injury without loss of consciousness, sequela S06.9X0S [place] [id number] [place] [address] 80553- 6825 Jul, [place] [address] 20856- 3096 Jun, Anxiety disorder, unspecified F41.9 and Major depression F32.9 [place] [id number] [place] [address] 51770- 9401 Jun, [place] [address] 88003- 5101 May, [place] [id number] [place] [address] 60119- 8604 May, Nausea R11.0 [place] [address] 01597- 0200 Apr, [place] [id number] [place] [address] 67120- 0830 Mar, Major depression F32.9 [place] [id number] [place] [address] 35866- 1074 Mar, Encounter for immunization Z23 [place] [id number] [place] [address] 89206- 8719 Mar, Major depression F32.9 and Anxiety disorder, unspecified F41.9 [place] [id number] [place] [address] 48346- 1287 Dec, Major depression, chronic 296.20 and Anxiety disorder, unspecified 300.00 [place] [address] [place] [address]- 6510 October, Hypertension 401.9 [facility] [place] [facility] [address] [id number] [place] [address]- 8210 14 Sep, 2014 [facility] [place] [facility] [address] [id number] [place] [address]- 5146 13 Sep, 2014 [facility] [place] [facility] [address] [id number] [place] [address]- 5519 18 Jul, 2014 [facility] [place] [facility] [address] [id number] [place] [address]- 0624 Jul, [facility] [place] [facility] [address] [id number] [place] [address]- 3397 Jul, [facility] [place] [facility] [address] [facility] [id number] [place] [address]- 4108 May, [facility] [place] [facility] [address] [id number] [place] [address]- 6554 May, [facility] [place] [facility] [address] [id number] [place] [address]- 4837 May, [facility] [place] [facility] [address] [facility] [id number] [place] [address]- 0922 May, [facility] [place] [facility] [address] [facility] [id number] [place] [address]- 1876 Apr, [facility] [place] [facility] [address] [facility] [id number] [place] [address]- 1675 Apr, [facility] [place] [facility] [address] [id number] [place] [address]- 2541 Feb, [facility] [place] [facility] [address] [id number] [place] [address]- 3232 Feb, [facility] [place] [facility] [address] [facility] [id number] [place] [address]- 8288 Jan, [facility] [place] [facility] [address] [facility] [id number] [place] [address]- 2426 Jan, [facility] [place] [facility] [address] [id number] [place] [address]- 8549 Jan, [facility] [place] [facility] [address] [id number] [place] [address]- 4595 Jan, [facility] [place] [facility] [address] [id number] [place] [address]- 3293 Dec, [facility] [place] [facility] [address] [id number] [place] [address]- 3988 Dec, [facility] [place] [facility] [address] [id number] [place] [address]- 6799 Nov, [facility] [place] [facility] [address] [id number] [place] [address]- 3070 Nov, [facility] [place] [facility] [address] [id number] [place] [address]- 4621 Nov, [facility] [place] [facility] [address] [id number] [place] [address]- 0491 Nov, [facility] [place] [facility] [address] [id number] [place] [address]- 8575 October, [facility] [place] [facility] [address] [id number] [place] [address]- 4331 October, [facility] [place] [facility] [address] [id number] [place] [address]- 4784 Sep, [facility] [place] [facility] [address] [id number] [place] [address]- 7074 Sep, [facility] [place] [facility] [address] [id number] [place] [address]- 6029 Sep, [facility] [place] [facility] [address] [id number] [place] [address]- 3944 Sep, [facility] [place] [facility] [address] [id number] [place] [address]- 1319 Sep, [facility] [place] [facility] [address] [id number] [place] [address]- 4897 Sep, [facility] [address] [id number] [place] [address]- 1140 Aug, [facility] [place] [facility] [address] [id number] [place] 0806 Aug, [facility] [place] [facility] [address] [id number] [place] [address]- 4946 Jul, [facility] [place] [facility] [address] [id number] [place] [address]- 0786 Jul, [facility] [place] [facility] [address] [id number] [place] [address]- 0891 May, [facility] [place] [facility] [address] [id number] [place] [address]- 7361 May, [facility] [address] [id number] [place] [address]- 8335 May, [facility] [place] [facility] [address] [id number] [place] [address]- 9552 May, [facility] [place] [facility] [address] [id number] [place] [address]- 8350 May, [facility] [place] [facility] [address] [id number] [place] [address]- 7864 May, [facility] [place] [facility] [address] [id number] [place] [address] 2546 Apr, [facility] [place] [facility] [address] [id number] [place] [address]- 2547 Apr, [facility] [place] [facility] [address] [id number] [place] [address]- 7576 Apr, [facility] [place] [facility] [address] [id number] [place] [address]- 2547 Apr, [facility] [place] [facility] [address] [id number] [place] 3146 Apr, [facility] [place] [facility] [address] [id number] [place] [address] 2547 Apr, [facility] [address] [id number] [place] [address]- 7032 Feb, [facility] [address] [id number] [place] [address]- 4250 Feb, [facility] [address] [id number] [place] [address]- 6016 Feb, [facility] [address] [id number] [place] [address]- 2726 Feb, [facility] [address] [id number] [place] [address]- 5470 Jan, [facility] [address] [id number] [place] [address]- 8901 Dec, [facility] [address] [id number] [place] [address]- 3026 Dec, [facility] [address] [id number] [place] [address]- 9834 Dec, [facility] [address] [id number] [place] [address]- 0184 Dec, [facility] [address] [id number] [place] [address]- 6432 Nov, [facility] [address] [id number] [place] [address]- 2544 Nov, [facility] [place] [facility] [address] [id number] [place] [address]- 5436 October, [facility] [place] [facility] [address] [id number] [place] [address]- 7736 October, [facility] [place] [facility] [address] [id number] [place] [address]- 2541 October, [facility] [place] [facility] [address] [id number], [place] [address]- 0430 October, [facility] [address] [id number] [place] [address]- 8193 16 Sep, 2012 [facility] [place] [facility] [address] [id number] [place] [address]- 9966 Aug, [facility] [place] [facility] [address] [id number] [place] [address]- 7629 Aug, [facility] [place] [facility] [address] [id number] [place] [address]- 2533 15 Aug, 2012 [facility] [address] [id number] [place] [address]- 3159 Aug, [facility] [place] [facility] [address] [id number] [place] [address]- 9136 26 Jul, 2012 [facility] [address] [facility] [id number] [place] [address]- 1447 Jul, [facility] [place] [facility] [address] [id number] [place] [address]- 7135 Jul, [facility] [address] [facility] [id number] [place] [address]- 6577 Jun, [facility] [address] [facility] [id number] [place] [address]- 8950 Jun, [facility] [address] [facility] [id number] [place] [address]- 5338 May, [facility] [place] [facility] [address] [id number] [place] [address]- 3392 May, [facility] [place] [facility] [address] [id number] [place] [address]- 1267 Apr, [facility] [place] [facility] [address] [id number] [place] [address]- 9475 Apr, [facility] [place] [facility] [address] [facility] [id number] [place] [address]- 5837 Apr, [facility] [place] [facility] [address] [id number] [place] [address]- 1246 Apr, [facility] [place] [facility] [address] [id number] [place] [address]- 6615 Apr, [facility] [place] [facility] [address] [id number] [place] [address]- 8693 Apr, [facility] [place] [facility] [address] [id number] [place] [address]- 3195 Mar, [facility] [place] [facility] [address] [id number] [place] [address]- 4836 Mar, [facility] [place] [facility] [address] [id number] [place] [address]- 8809 Mar, [facility] [place] [facility] [address] [id number] [place] 0840 Mar, [facility] [place] [facility] [address] [id number] [place] [address]- 7150 Mar, [facility] [place] [facility] [address] [id number] [place] 6067 Mar, [facility] [place] [facility] [address] [id number] [place] [address]- 9244 Mar, [facility] [place] [facility] [address] [id number] [place] [address]- 6887 Feb, [facility] [place] [facility] [address] [id number] [place] [address]- 6897 Feb, [facility] [place] [facility] [address] [id number] [place] [address]- 4921 Jan, [facility] [place] [facility] [address] [id number] [place] [address]- 7714 Dec, [facility] [place] [facility] [address] [id number] [place] [address]- 2546 Dec, [facility] [place] [facility] [address] [id number] [place] [address]- 6374 Nov, [facility] [place] [facility] [address] [id number] [place] [address]- 0377 Nov, [facility] [place] [facility] [address] [id number] [place] [address]- 9173 Nov, [facility] [place] [facility] [address] [id number] [place] [address]- 8123 October, [facility] [place] [facility] [address] [id number] [place] [address]- 6106 Sep, [facility] [place] [facility] [address] [id number] [place] [address]- 0332 16 Sep, 2011 [facility] [place] [facility] [address] [id number] [place] [address]- 1615 Sep, [facility] [place] [facility] [address] [id number] [place] [address]- 6089 Aug, [facility] [place] [facility] [address] [id number] [place] [address]- 0013 Aug, [facility] [place] [facility] [address] [id number] [place] [address]- 9289 Aug, [facility] [place] [facility] [address] [id number] [place] [address]- 5462 15 Aug, 2011 [facility] [place] [facility] [address] [id number] [place] [address]- 5624 14 Aug, 2011 [facility] [place] [facility] [address] [id number], [place] [address]- 6215 12 Aug, 2011 [facility] [place] [facility] [address] [id number] [place] [address]- 1903 08 Aug, 2011 [facility] [place] [facility] [address] [id number] [place] [address]- 6580 05 Aug, 2011 [facility] [place] [facility] [address] [id number] [place] [address]- 7467 Jul, [facility] [place] [facility] [address] [id number] [place] [address]- 5966 22 Jul, 2011 [facility] [address] [id number] [place] [address] 2546 20 Jul, 2011 [facility] [place] [facility] [address] [id number] [place] [address] 2546 15 Jul, 2011 [facility] [address] [id number] [place] [address] 2546 06 Jul, 2011 [facility] [place] [facility] [address] [id number] [place] [address] 2546 Jul, [facility] [address] [id number] [place] [address] Jun, [facility] [address] [id number] [place] [address] Jun, [facility] [address] [id number] [place] [address] Jun, [facility] [address] [id number] [place] [address] Jun, [facility] [address] [id number] [place] [address] May, [facility] [address] [id number] [place] [address] May, [facility] [address] [id number] [place] [address] May, [facility] [place] [facility] [address] [id number] [place] [address] May, [facility] [place] [facility] [address] [id number] [place] [address] May, [facility] [place] [facility] [address] [id number] [place] [address] 30 Apr, 2011 [facility] [place] [facility] [address] [id number] [place] [address] Apr, [facility] [id number] [address] Mar, [facility] [id number] [address] Feb, [facility] [id number] [address] Feb, [facility] [id number], [place] [address] May, [facility] [id number] [place] [address] Apr, [facility] [id number] [place] [address] Apr, [facility] [id number] [address] Apr, [facility] [id number] [place] [address] Apr, [facility] [id number] [address] Apr, [facility] [id number] [address] Apr, [facility] [id number] [address] Mar, [facility] [id number] [address] Mar, [facility] [id number] [address] Sep, IMMUNIZATIONS No Known Immunizations SOCIAL HISTORY Never Assessed REASON FOR VISIT DC from [facility] to [facility] SIGNS MEDICATIONS Unknown Medications RESULTS No [...] attempts Hospitalization History Ischemic colitis, dementia, generalized debility-[facility] 07/30/17
--- OUTSIDE RECORDS SUMMARY | 2018-06-23 23:20 | XMS REPORT ---
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 Name Role Phone WHIT EDWARDS Unavailable PROBLEMS Type Condition ICD9-CM Code NSZ85-YV Code Onset Dates Condition Status SNOMED Code Problem Mood disorder F39 Active 11249981 Problem Dementia without behavioral disturbance, unspecified dementia type F03.90 Active 25757499 Problem Hypertension, benign I10 Active 78368156 Problem Cognitive dysfunction F09 Active 748269702 Problem 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 039753932 Problem Anxiety disorder, unspecified F41.9 Active 287548451 Problem Major depression F32.9 Active [id number] ALLERGIES No Information ENCOUNTERS Encounter Location Date Diagnosis [facility] [id number] [place] [address] 31745- 8512 Jan, [facility] [id number] [place] [address] 06313- 6823 Dec, Mood disorder F39 [facility] [id number] [place] [address] 39345- 2203 Dec, Mood disorder F39 [place] [id number] [place] [address] 10217- 5631 Nov, [place] [id number] [place] [address] 20907- 4786 Nov, Dementia without behavioral disturbance, unspecified dementia type F03.90 ; Cognitive dysfunction F09 and Major depression F32.9 [facility] [address] [place] [address] October, Encounter for examination for admission to retirement Z02.2 ; Tardive dyskinesia G24.01 ; Major depression F32.9 ; Anxiety disorder, unspecified F41.9 ; Cognitive dysfunction F09 and Dementia without behavioral disturbance, unspecified dementia type F03.90 [facility] [address] [address] 379[address] October, [facility] [address] [address] 4143 October, [facility] [id number] [place] [address] 38172- 1138 Sep, Acute deep vein thrombosis (DVT) of proximal vein of left lower extremity I82.4Y2 [facility] [id number] [place] [address] 19235- 9622 Sep, Mood disorder F39 and Dementia associated with other underlying disease without behavioral disturbance F02.80 [facility] [address], [place] [address] 3142 Sep, Mood disorder F39 and Acute deep vein thrombosis (DVT) of proximal vein of left lower extremity I82.4Y2 [facility] [address] [address] 3933 16 Sep, 2017 [facility] [address] [place] [id number] Sep, History of DVT (deep vein thrombosis) Z86.718 and Dementia F03.90 [facility] [address] [address] 64[address] Sep, Mood disorder F39 and Dementia without behavioral disturbance, unspecified dementia type F03.90 [facility] [id number] [address] 6934 Aug, [facility] [address], [place] [address] 9578 Aug, [facility] [id number] [place] [address] [id number] Aug, [facility] [address], [place] [address] 6103 Aug, [facility] [address], [place] [address] 0877 Aug, Acute deep vein thrombosis (DVT) of proximal vein of left lower extremity I82.4Y2 [facility] [address] [place] [id number] Aug, Left leg swelling M79.89 [facility] [id number] [place] [address] 61332- 0090 Aug, Mood disorder F39 and Dementia without behavioral disturbance, unspecified dementia type F03.90 [place] [id number] [place] [address] 20695- 8239 Jul, [place] [id number] [place] [address] 28053- 6018 Jul, Dementia without behavioral disturbance, unspecified dementia type F03.90 and Mood disorder F39 [facility] [address] [place] [id number] Jul, Encounter for examination for admission to retirement Z02.2 ; Rectal bleed K62.5 ; Dementia without behavioral disturbance, unspecified dementia type F03.90 ; Hypertension, benign I10 ; Edema R60.9 and Major depression F32.9 [facility] [id number] [place] [address] [id number] Jul, [facility] [id number] [place] [address] 82203- 4935 Apr, Dementia without behavioral disturbance, unspecified dementia type F03.90 and Mood disorder F39 [facility] [address], [place] [address] 0133 Apr, [facility] [id number] [place] [address] 44851- 4151 Feb, Hypertension, benign I10 [facility] [id number] [place] [address] 98042- 4937 Dec, Major depression F32.9 ; Anxiety disorder, unspecified F41.9 ; Cognitive dysfunction F09 and Dementia without behavioral disturbance, unspecified dementia type F03.90 [facility] [id number] [place] [address] 73917- 2995 October, Hypertension, benign I10 [facility] [id number] [place] [address] Sep, Major depression F32.9 ; Anxiety disorder, unspecified F41.9 and Cognitive dysfunction F09 [facility] [id number] [place] [address] 16141- 5664 Apr, Major depression F32.9 and Cognitive dysfunction F09 [facility] [id number] [place] [address] 22010- 9437 Jan, Anxiety disorder, unspecified F41.9 ; Major depression F32.9 and Cognitive dysfunction F09 [facility] [id number] [place] [address] 03401- 1852 Jan, [facility] [id number] [place] [address] 23240- 3495 Dec, [facility] [id number] [place] [address] 23588- 3558 Dec, [facility] [id number] [place] [address] [address] Nov, Anxiety disorder, unspecified F41.9 ; Major depression F32.9 and Cognitive dysfunction F09 [facility] [id number] [place] [address] 24263- 1887 October, Dementia without behavioral disturbance, unspecified dementia type F03.90 [facility] [id number] [place] [address] 55044- 9043 Sep, Cognitive dysfunction F09 and Edema R60.9 [facility] [id number] [place] [address] 09143- 8989 Sep, Cognitive dysfunction F09 and Edema R60.9 [facility] [id number] [place] [address] 35874- 9663 Aug, 2016 Self-care deficit for medication administration R41.89 ; Self-care deficit in patient living alone R46.89 and Cognitive dysfunction F09 [place] [id number] [place] [address] [address] Aug, 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 and Unspecified intracranial injury without loss of consciousness, sequela S06.9X0S [place] [address] 72967- 8693 Jul, [place] [address] 50593- 1190 Jun, Anxiety disorder, unspecified F41.9 and Major depression F32.9 [place] [id number] [place] [address] 26791- 9025 Jun, [place] [address] 30267- 1452 May, [place] [address] 39310- 5535 May, Nausea R11.0 [place] [address] 62234- 2270 Apr, [place] [id number] [place] [address] 25321- 9990 Mar, Major depression F32.9 [place] [address] 77643- 8638 Mar, Encounter for immunization Z23 [place] [address] 20016- 5360 Mar, Major depression F32.9 and Anxiety disorder, unspecified F41.9 [place] [id number] [place] [address] [id number]- 5730 Dec, Major depression, chronic 296.20 and Anxiety disorder, unspecified 300.00 [place] [address] [place] [address]- 7850 October, Hypertension 401.9 [facility] [place] [facility] [address] [id number] [place] [address]- 1366 14 Sep, 2014 [facility] [place] [facility] [address] [id number] [place] [address]- 8346 13 Sep, 2014 [facility] [place] [facility] [address] [id number] [place] [address]- 9915 18 Jul, 2014 [facility] [place] [facility] [address] [id number] [place] [address]- 9113 16 Jul, 2014 [facility] [place] [facility] [id number] [place] [address], [place] [address]- 7797 Jul, [facility] [place] [facility] [address] [facility] [id number] [place] [address]- 0308 May, [facility] [place] [facility] [address] [id number] [place] [address]- 7498 May, [facility] [place] [facility] [address] [id number] [place] [address]- 7005 May, [facility] [place] [facility] [address] [facility] [id number] [place] [address]- 0707 May, [facility] [place] [facility] [address] [facility] [id number] [place] [address]- 6427 Apr, [facility] [place] [facility] [address] [facility] [id number] [place] [address]- 3905 Apr, [facility] [place] [facility] [address] [id number] [place] [address]- 2540 Feb, [facility] [place] [facility] [address] [id number] [place] [address]- 5100 Feb, [facility] [place] [facility] [address] [id number] [place] [address]- 7316 Jan, [facility] [place] [facility] [address] [facility] [id number] [place] [address]- 9539 Jan, [facility] [place] [facility] [address] [id number] [place] [address]- 4391 Jan, [facility] [place] [facility] [address] [id number] [place] [address]- 4438 Jan, [facility] [place] [facility] [address] [id number] [place] [address]- 1883 Dec, [facility] [place] [facility] [address] [id number] [place] [address]- 5436 Dec, [facility] [place] [facility] [address] [id number] [place] [address]- 4171 Nov, [facility] [place] [facility] [address] [id number] [place] [address]- 4117 Nov, [facility] [place] [facility] [address] [id number] [place] [address]- 4265 Nov, [facility] [place] [facility] [address] [id number] [place] [address]- 1408 Nov, [facility] [place] [facility] [address] [id number] [place] [address]- 2911 October, [facility] [place] [facility] [address] [id number] [place] [address]- 4610 October, [facility] [place] [facility] [address] [id number] [place] [address]- 5883 Sep, [facility] [place] [facility] [address] [id number] [place] [address]- 8012 Sep, [facility] [place] [facility] [address] [id number] [place] [address]- 1392 Sep, [facility] [place] [facility] [address] [id number] [place] [address]- 0521 Sep, [facility] [place] [facility] [address] [id number] [place] [address]- 4407 Sep, [facility] [place] [facility] [address] [id number] [place] [address]- 6355 Sep, [facility] [address] [id number] [place] [address]- 6136 Aug, [facility] [address] [id number] [place] [address]- 1465 Aug, [facility] [address] [id number] [place] 6016 Jul, [facility] [place] [facility] [address] [id number] [place] [address]- 2472 Jul, [facility] [address] [id number] [place] [address]- 5610 May, [facility] [address] [id number] [place] [address]- 3432 May, [facility] [address] [id number] [place] [address]- 0725 May, [facility] [address] [id number] [place] [address]- 6098 May, [facility] [address] [id number] [place] [address]- 9622 May, [facility] [address] [id number] [place] [address]- 2204 May, [facility] [address] [id number] [place] [address]- 3069 Apr, [facility] [place] [facility] [address] [id number] [place] [address]- 2544 Apr, [facility] [place] [facility] [address] [id number] [place] [address]- 1994 Apr, [facility] [place] [facility] [address] [id number] [place] [address]- 8921 Apr, [facility] [place] [facility] [address] [id number] [place] 4480 Apr, [facility] [place] [facility] [address] [id number] [place] [address]- 8040 Apr, [facility] [place] [facility] [address] [id number] [place] [address]- 5096 Feb, [facility] [place] [facility] [address] [id number] [place] [address]- 7927 Feb, [facility] [place] [facility] [address] [id number] [place] [address]- 6422 Feb, [facility] [place] [facility] [address] [id number] [place] [address]- 2635 Feb, [facility] [place] [facility] [address] [id number] [place] [address]- 9454 Jan, [facility] [place] [facility] [address] [id number] [place] [address]- 5057 Dec, [facility] [place] [facility] [address] [id number] [place] [address]- 4039 Dec, [facility] [place] [facility] [address] [id number] [place] [address]- 5021 Dec, [facility] [place] [facility] [address] [id number] [place] [address]- 9376 Dec, [facility] [place] [facility] [address] [id number] [place] [address]- 7073 Nov, [facility] [place] [facility] [address] [id number] [place] [address]- 7110 Nov, [facility] [place] [facility] [address] [id number] [place] [address]- 9449 October, [facility] [place] [facility] [address] [id number] [place] [address]- 6356 October, [facility] [place] [facility] [address] [id number] [place] [address]- 8711 October, [facility] [place] [facility] [address] [id number] [place] [address]- 2606 October, [facility] [address] [id number] [place] [address]- 8321 16 Sep, 2012 [facility] [address] [id number] [place] [address]- 1036 Aug, [facility] [place] [facility] [address] [id number] [place] [address]- 4667 18 Aug, 2012 [facility] [place] [facility] [address] [id number] [place] [address]- 2021 15 Aug, 2012 [facility] [address] [id number] [place] [address]- 2344 Aug, [facility] [address] [id number] [place] [address]- 3766 Jul, [facility] [address] [id number] [place] [address]- 4358 Jul, [facility] [place] [facility] [address] [id number] [place] [address]- 3137 Jul, [facility] [address] [id number] [place] [address]- 3007 Jun, [facility] [address] [id number] [place] [address]- 0726 Jun, [facility] [address] [id number] [place] [address]- 2037 May, [facility] [place] [facility] [address] [id number] [place] [address]- 0126 May, [facility] [place] [facility] [address] [id number] [place] [address]- 7177 Apr, [facility] [place] [facility] [address] [id number] [place] [address]- 0487 Apr, [facility] [place] [facility] [address] [id number] [place] [address]- 0718 Apr, [facility] [place] [facility] [address] [id number] [place] [address]- 9410 Apr, [facility] [place] [facility] [address] [id number] [place] [address]- 0351 Apr, [facility] [place] [facility] [address] [id number] [place] [address] 2546 Apr, [facility] [place] [facility] [address] [id number] [place] [address]- 1675 Mar, [facility] [place] [facility] [address] [id number] [place] [address]- 3090 Mar, [facility] [place] [facility] [address] [id number] [place] [address]- 9699 Mar, [facility] [place] [facility] [address] [id number] [place] [address]- 4896 Mar, [facility] [place] [facility] [address] [id number] [place] [address]- 4772 Mar, [facility] [place] [facility] [address] [id number] [place] [address]- 7127 Mar, [facility] [place] [facility] [address] [id number] [place] [address]- 5031 Mar, [facility] [place] [facility] [address] [id number] [place] [address]- 1869 Feb, [facility] [place] [facility] [address] [id number] [place] [address]- 2546 Feb, [facility] [place] [facility] [address] [id number] [place] [address]- 5496 Jan, [facility] [place] [facility] [address] [id number] [place] [address]- 2546 Dec, [facility] [place] [facility] [address] [id number] [place] [address]- 2546 Dec, [facility] [place] [facility] [address] [id number] [place] [address]- 7751 Nov, [facility] [place] [facility] [address] [id number] [place] [address]- 4780 Nov, [facility] [place] [facility] [address] [id number] [place] [address]- 1206 Nov, [facility] [place] [facility] [address] [id number] [place] [address]- 0457 October, [facility] [place] [facility] [address] [id number] [place] [address]- 4052 Sep, [facility] [place] [facility] [address] [id number] [place] [address]- 4998 16 Sep, 2011 [facility] [place] [facility] [address] [id number] [place] [address]- 3189 Sep, [facility] [place] [facility] [address] [id number] [place] [address]- 1172 Aug, [facility] [place] [facility] [address] [id number] [place] [address]- 8429 Aug, [facility] [place] [facility] [address] [id number] [place] [address]- 2759 Aug, [facility] [place] [facility] [address] [id number] [place] [address]- 8848 15 Aug, 2011 [facility] [place] [facility] [address] [id number] [place] [address]- 7212 14 Aug, 2011 [facility] [place] [facility] [address] [id number], [place] [address]- 6498 12 Aug, 2011 [facility] [place] [facility] [address] [id number] [place] [address]- 2626 08 Aug, 2011 [facility] [place] [facility] [address] [id number] [place] [address]- 8087 05 Aug, 2011 [facility] [place] [facility] [address] [id number] [place] [address]- 0694 Jul, [facility] [place] [facility] [address] [id number] [place] [address]- 2932 22 Jul, 2011 [facility] [address] [id number] [place] [address]- 4916 20 Jul, 2011 [facility] [address] [id number] [place] [address] 2546 15 Jul, 2011 [facility] [address] [id number] [place] [address] 2546 06 Jul, 2011 [facility] [address] [id number] [place] [address] 2546 Jul, [facility] [address] [id number] [place] [address]- 8746 27 Jun, 2011 [facility] [address] [id number] [place] [address]- 7389 Jun, [facility] [address] [id number] [place] [address]- 5863 Jun, [facility] [address] [id number] [place] [address]- 7936 Jun, [facility] [address] [id number] [place] [address]- 3945 29 May, 2011 [facility] [address] [id number] [place] [address]- 5712 28 May, 2011 [facility] [address] [id number] [place] [address] 2546 May, [facility] [address] [id number] [place] [address] 2546 12 May, 2011 [facility] [place] [facility] [address] [id number] [place] [address] 2546 03 May, 2011 [facility] [address] [id number] [place] [address] 2546 30 Apr, 2011 [facility] [address] [id number] [place] 4641 Apr, [facility] [address] [facility] [id number], [place] [address]- 3585 Mar, [facility] [address] [facility] [id number], [place] [address] Feb, [facility] [address] [facility] [id number], [place] [address] Feb, [facility] [address] [facility] [id number], [place] [address] May, [facility] [address] [facility] [id number], [place] [address] Apr, [facility] [address] [facility] [id number], [place] [address] Apr, [facility] [id number], [place] [address] Apr, [facility] [id number], [place] [address] Apr, [facility] [id number], [place] [address] Apr, [facility] [id number], [place] [address] Apr, [facility] [id number], [place] [address] Mar, [facility] [address] [id number], [place] [address] Mar, [facility] [address] [id number], [place] [address] Sep, IMMUNIZATIONS No Known Immunizations SOCIAL HISTORY Never Assessed REASON FOR VISIT Psychiatric f/u PLAN OF CARE Activity Details Follow Up 4 Weeks, prn Reason: VITAL SIGNS MEDICATIONS Medication Instructions Dosage Frequency Start Date End Date Duration Status Seroquel 300 MG Orally Once a day 1 tablet 24h Sep, 30 day(s) Active BusPIRone HCl 10 MG Orally Twice a day 1 tablet 12h Active Nicoderm CQ 14 MG/24HR Transdermal Once a day 1 patch to skin 24h Active Eliquis 5 mg Orally 2 times a day 2 tabs 12h Aug, 07 days Active Tylenol 325 MG Orally every 4 hrs 2 tablets as needed 4h Aug, Active Trihexyphenidyl HCl 2 MG Orally twice a day 0.5 tablet 12h 28 Jul, 2017 Active Pantoprazole Sodium 40 MG Orally Once a day 1 tablet 24h Active Lisinopril 10 mg Orally Once a day 1 tablet 24h Active Lovastatin 20 mg Orally Once a day 1 tablet with a meal 24h Active RESULTS No Results PROCEDURES Procedure Date Ordered Result Body Site [facility] VISIT ESTABLISHED PATIENT September 12, 2017 INSTRUCTIONS MEDICATIONS ADMINISTERED No Known Medications [...] attempts Hospitalization History Ischemic colitis, dementia, generalized debility-[facility] 07/30/17
--- OUTSIDE RECORDS SUMMARY | 2018-06-23 23:21 | XMS REPORT ---
Author Author CARO CAMARA Organization [facility] Address [address] [place] [address] Care Team Providers Care Lot Attendant Name Role Phone CARO CAMARA Unavailable PROBLEMS Type Condition ICD9-CM Code ALV00-ZE Code Onset Dates Condition Status SNOMED Code Problem Mood disorder F39 Active 01448992 Problem Dementia without behavioral disturbance, unspecified dementia type F03.90 Active 80806025 Problem Hypertension, benign I10 Active 45572929 Problem Cognitive dysfunction F09 Active 002526345 Problem 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 987668197 Problem Anxiety disorder, unspecified F41.9 Active 321172379 Problem Major depression F32.9 Active 593520060 ALLERGIES No Information ENCOUNTERS Encounter Location Date Diagnosis [place] [id number], [place] [address] Jan, [place] [id number] [place] [address] 63073- 6429 Dec, Mood disorder F39 [place] [id number] [place] [address] 10492- 4091 Nov, [place] [id number] [place] [address] 30454- 6625 Nov, Dementia without behavioral disturbance, unspecified dementia type F03.90 ; Cognitive dysfunction F09 and Major depression F32.9 [facility] [address] [place] [address] October, Encounter for examination for admission to fpc Z02.2 ; Tardive dyskinesia G24.01 ; Major depression F32.9 ; Anxiety disorder, unspecified F41.9 ; Cognitive dysfunction F09 and Dementia without behavioral disturbance, unspecified dementia type F03.90 [place] [id number] [place] [address] [id number]- 6564 October, [facility] [id number] [place] [address] 14577- 0404 October, [facility] [id number] [place] [address] [id number]- 8580 Sep, Acute deep vein thrombosis (DVT) of proximal vein of left lower extremity I82.4Y2 [facility] [id number] [place] [address] 30909- 5185 Sep, Mood disorder F39 and Dementia associated with other underlying disease without behavioral disturbance F02.80 [facility] [address] [id number] [place] [address] 04182- 4680 Sep, Mood disorder F39 and Acute deep vein thrombosis (DVT) of proximal vein of left lower extremity I82.4Y2 [place] [address] [place] [id number] [place] [address] 05634- 1047 Sep, Via [facility] [place] [address] [place] [id number] Sep, History of DVT (deep vein thrombosis) Z86.718 and Dementia F03.90 [facility] [id number] [place] [address] 19317- 5929 Sep, Mood disorder F39 and Dementia without behavioral disturbance, unspecified dementia type F03.90 [facility] [id number] [place] [address] 84651- 6479 Aug, [facility] [id number] [place] [address] [id number] 2379 Aug, [facility] [address] [place] [id number] [place] [address] [id number] Aug, [facility] [id number] [place] [address] 25102- 8967 Aug, [facility] [id number] [place] [address] [id number]- 8872 Aug, Acute deep vein thrombosis (DVT) of proximal vein of left lower extremity I82.4Y2 [facility] [address] [place] [id number] Aug, Left leg swelling M79.89 [facility] [address] [place] [address] 41384- 4822 Aug, Mood disorder F39 and Dementia without behavioral disturbance, unspecified dementia type F03.90 [facility] [id number] [place] [address] 83014- 3318 Jul, [facility] [address] [id number] [place] [address] 35415- 3966 Jul, Dementia without behavioral disturbance, unspecified dementia type F03.90 and Mood disorder F39 Via [facility] [address] [place] [id number] Jul, Encounter for examination for admission to fpc Z02.2 ; Rectal bleed K62.5 ; Dementia without behavioral disturbance, unspecified dementia type F03.90 ; Hypertension, benign I10 ; Edema R60.9 and Major depression F32.9 [facility] [id number] [place] [address] [id number] Jul, [facility] [address] [place] [address] 37511- 3125 Apr, Dementia without behavioral disturbance, unspecified dementia type F03.90 and Mood disorder F39 [facility] [id number] [place] [address] 52341- 7630 Apr, [facility] [id number] [place] [address] 00570- 6918 Feb, Hypertension, benign I10 [facility] [id number] [place] [address] 46754- 9706 Dec, Major depression F32.9 ; Anxiety disorder, unspecified F41.9 ; Cognitive dysfunction F09 and Dementia without behavioral disturbance, unspecified dementia type F03.90 [facility] [address] [place] [address] 87280- 2420 October, Hypertension, benign I10 [facility] [address] [place] [address] [id number]- 0956 Sep, Major depression F32.9 ; Anxiety disorder, unspecified F41.9 and Cognitive dysfunction F09 [facility] [id number] [place] [address] 73221- 8576 Apr, Major depression F32.9 and Cognitive dysfunction F09 [facility] [address] [place] [address] [id number] [place] [address] 37415- 3077 Jan, Anxiety disorder, unspecified F41.9 ; Major depression F32.9 and Cognitive dysfunction F09 [place] [address] [place] [id number] [place] [address] 96192- 5226 Jan, [place] [address] [place] [id number] [place] [address] 24048- 0753 Dec, [place] [address] [place] [id number] [place] [address] 02331- 5213 Dec, [facility] [address] [place] [address] [id number] [place] [address] 33629- 8497 Nov, Anxiety disorder, unspecified F41.9 ; Major depression F32.9 and Cognitive dysfunction F09 [place] [address] [place] [id number] [place] [address] 57252- 5002 October, Dementia without behavioral disturbance, unspecified dementia type F03.90 [facility] [address] [place] [address] [id number] [place] [address] 98895- 3866 Sep, Cognitive dysfunction F09 and Edema R60.9 [place] [address] [place] [id number] [place] [address] 77347- 1091 Sep, Cognitive dysfunction F09 and Edema R60.9 [place] [address] [place] [address] 19545- 6131 Aug, 2016 Self-care deficit for medication administration R41.89 ; Self-care deficit in patient living alone R46.89 and Cognitive dysfunction F09 [facility] [id number] [place] [address] 50179- 5621 Aug, 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 and Unspecified intracranial injury without loss of consciousness, sequela S06.9X0S [facility] [address] [id number] [place] [address] 51181- 3877 Jul, [facility] [address] [id number] [place] [address] 70236- 2544 Jun, Anxiety disorder, unspecified F41.9 and Major depression F32.9 [facility] [address] [place] [address] [id number] [place] [address] 45140- 6005 Jun, [facility] [address] [place] [address] [id number] [place] [address] 65355- 5371 May, [facility] [address] [place] [id number] [place] [address] 06909- 7403 May, Nausea R11.0 [facility] [address] [place] [id number] [place] [address] 31505- 9178 Apr, [facility] [address] [place] [address] [id number] [place] [address] 40884- 8562 Mar, Major depression F32.9 [place] [address] [place] [id number] [place] [address] 60175- 0728 Mar, Encounter for immunization Z23 [facility] [address] [place] [id number] [place] [address] 19210- 2668 Mar, Major depression F32.9 and Anxiety disorder, unspecified F41.9 [facility] [address] [place] [id number] [place] [address] 41743- 2937 Dec, Major depression, chronic 296.20 and Anxiety disorder, unspecified 300.00 [facility] [address] [place] [address] [id number] [place] [address] 69649- 4168 October, Hypertension 401.9 [facility] [address] [place] [address]- 5728 14 Sep, 2014 [facility] [address] [id number] [place] [address]- 8720 13 Sep, 2014 [facility] [place] [facility] [address] [id number] [place] [address]- 3397 18 Jul, 2014 [facility] [place] [facility] [address] [id number] [place] [address]- 0107 16 Jul, 2014 [facility] [place] [facility] [address] [id number] [place] [address]- 7549 16 Jul, 2014 [facility] [place] [facility] [address] [id number] [place] [address]- 5375 May, [facility] [place] [facility] [address] [id number] [place] [address]- 0932 May, [facility] [place] [facility] [address] [id number] [place] [address]- 8460 May, [facility] [place] [facility] [address] [id number] [place] [address]- 0918 May, [facility] [place] [facility] [address] [facility] [id number] [place] [address]- 4578 Apr, [facility] [address] [facility] [id number] [place] [address]- 0770 Apr, [facility] [place] [facility] [address] [id number] [place] [address]- 1239 Feb, [facility] [place] [facility] [address] [id number] [place] [address]- 8688 Feb, [facility] [place] [facility] [address] [id number] [place] [address]- 6833 Jan, [facility] [place] [facility] [address] [id number] [place] [address]- 4297 Jan, [facility] [place] [facility] [address] [id number] [place] [address]- 1454 Jan, [facility] [place] [facility] [address] [id number] [place] [address]- 9932 Jan, [facility] [place] [facility] [address] [id number] [place] [address]- 8283 Dec, [facility] [place] [facility] [address] [id number] [place] [address]- 0557 Dec, [facility] [place] [facility] [address] [id number] [place] [address]- 8877 Nov, [facility] [place] [facility] [address] [id number] [place] [address]- 7173 Nov, [facility] [place] [facility] [address] [id number] [place] [address]- 5587 Nov, [facility] [place] [facility] [address] [id number] [place] [address]- 8527 Nov, [facility] [place] [facility] [address] [id number] [place] [address]- 5675 October, [facility] [place] [facility] [address] [id number] [place] [address]- 4829 October, [facility] [place] [facility] [address] [id number] [place] [address]- 7173 Sep, [facility] [place] [facility] [address] [id number] [place] [address]- 8875 Sep, [facility] [place] [facility] [address] [id number] [place] [address]- 7066 Sep, [facility] [place] [facility] [address] [id number] [place] [address]- 6825 Sep, [facility] [place] [facility] [address] [id number] [place] [address]- 4524 Sep, [facility] [place] [facility] [address] [id number] [place] [address]- 9374 Sep, [facility] [place] [facility] [address] [id number] [place] [address]- 8821 Aug, [facility] [address] [id number] [place] [address]- 8341 Aug, [facility] [address] [id number] [place] [address]- 2926 Jul, [facility] [address] [id number] [place] [address]- 4626 Jul, [facility] [address] [id number] [place] [address]- 9725 May, [facility] [address] [id number] [place] [address]- 2540 May, [facility] [address] [id number] [place] [address]- 6520 May, [facility] [address] [id number] [place] [address]- 3521 May, [facility] [address] [id number] [place] [address]- 8960 May, [facility] [address] [id number] [place] [address]- 0735 May, [facility] [address] [facility] [id number] [place] [address]- 8332 Apr, [facility] [address] [id number] [place] [address]- 8802 Apr, [facility] [place] [facility] [address] [id number], [place] [address]- 2543 Apr, [facility] [place] [facility] [address] [id number] [place] [address]- 2086 Apr, [facility] [place] [facility] [address] [id number] [place] [address]- 6145 Apr, [facility] [place] [facility] [address] [facility] [id number] [place] [address]- 9706 Apr, [facility] [place] [facility] [address] [id number] [place] [address]- 3854 Feb, [facility] [address] [id number] [place] [address]- 1596 Feb, [facility] [place] [facility] [address] [id number] [place] [address] 2546 Feb, [facility] [place] [facility] [address] [id number] [place] [address] 2546 Feb, [facility] [place] [facility] [address] [id number] [place] [address]- 5217 Jan, [facility] [place] [facility] [address] [id number] [place] [address]- 4775 Dec, [facility] [place] [facility] [address] [id number] [place] [address]- 8736 Dec, [facility] [address] [id number] [place] [address]- 1279 Dec, [facility] [address] [id number] [place] [address]- 4546 Dec, [facility] [place] [facility] [address] [id number] [place] [address]- 1332 Nov, [facility] [place] [facility] [address] [id number] [place] [address]- 4955 Nov, [facility] [place] [facility] [address] [id number] [place] [address]- 4030 October, [facility] [place] [facility] [address] [id number] [place] [address]- 2543 October, [facility] [place] [facility] [address] [id number] [place] [address]- 1616 October, [facility] [place] [facility] [address] [id number] [place] [address]- 2546 October, [facility] [place] [facility] [address] [id number] [place] [address]- 0550 Sep, 2012 [facility] [address] [id number] [place] [address]- 5927 Aug, [facility] [place] [facility] [address] [id number] [place] [address]- 4050 18 Aug, 2012 [facility] [place] [facility] [address] [id number] [place] [address]- 4564 15 Aug, 2012 [facility] [place] [facility] [address] [id number] [place] [address]- 9135 06 Aug, 2012 [facility] [place] [facility] [address] [id number] [place] [address]- 3369 Jul, [facility] [place] [facility] [address] [id number] [place] [address]- 7122 Jul, [facility] [place] [facility] [address] [id number] [place] [address]- 7677 Jul, [facility] [place] [facility] [address] [id number] [place] [address]- 9016 Jun, [facility] [place] [facility] [address] [id number] [place] [address]- 4961 Jun, [facility] [place] [facility] [address] [id number] [place] [address]- 7887 May, [facility] [place] [facility] [address] [id number] [place] [address]- 6409 May, [facility] [place] [facility] [address] [id number], [place] [address]- 9255 Apr, [facility] [place] [facility] [address] [id number] [place] [address]- 6677 Apr, [facility] [place] [facility] [address] [id number] [place] [address]- 8416 Apr, [facility] [place] [facility] [address] [id number] [place] [address]- 5621 Apr, [facility] [place] [facility] [address] [id number] [place] [address]- 1390 Apr, [facility] [place] [facility] [address] [id number] [place] [address]- 0581 Apr, [facility] [place] [facility] [address] [id number] [place] [address]- 5546 Mar, [facility] [place] [facility] [address] [id number] [place] [address]- 2411 Mar, [facility] [place] [facility] [address] [id number] [place] [address]- 0036 Mar, [facility] [place] [facility] [address] [id number] [place] [address]- 4778 Mar, [facility] [place] [facility] [address] [id number] [place] [address]- 9293 Mar, [facility] [place] [facility] [address] [id number] [place] [address]- 5263 Mar, [facility] [place] [facility] [address] [id number] [place] [address]- 2615 Mar, [facility] [place] [facility] [address] [id number] [place] [address]- 7524 Feb, [facility] [place] [facility] [address] [id number] [place] [address]- 8523 Feb, [facility] [place] [facility] [address] [id number] [place] [address]- 2546 Jan, [facility] [place] [facility] [address] [id number] [place] [address] 2544 Dec, [facility] [place] [facility] [address] [id number] [place] [address]- 2546 Dec, [facility] [place] [facility] [address] [id number] [place] [address]- 2546 Nov, [facility] [place] [facility] [address] [id number] [place] [address]- 9974 Nov, [facility] [place] [facility] [address] [id number] [place] [address]- 2988 13 Nov, 2011 [facility] [place] [facility] [address] [id number] [place] [address]- 1840 October, [facility] [place] [facility] [address] [id number] [place] [address]- 0782 Sep, [facility] [place] [facility] [address] [id number] [place] [address]- 7068 16 Sep, 2011 [facility] [place] [facility] [address] [id number] [place] [address]- 6408 04 Sep, 2011 [facility] [place] [facility] [address] [id number] [place] [address]- 0680 26 Aug, 2011 [facility] [place] [facility] [address] [id number] [place] [address]- 3902 Aug, [facility] [place] [facility] [address] [id number] [place] [address]- 8403 Aug, [facility] [place] [facility] [address] [id number] [place] [address]- 9256 15 Aug, 2011 [facility] [place] [facility] [address] [id number] [place] [address]- 2094 14 Aug, 2011 [facility] [place] [facility] [address] [id number] [place] [address]- 0833 Aug, [facility] [place] [facility] [address] [id number] [place] [address]- 0591 08 Aug, 2011 [facility] [place] [facility] [address] [id number] [place] [address]- 8163 05 Aug, 2011 [facility] [place] [facility] [address] [id number] [place] [address]- 9466 27 Jul, 2011 [facility] [place] [facility] [address] [id number] [place] 5199 Jul, [facility] [place] [facility] [address] [id number] [place] [address]- 5427 20 Jul, 2011 [facility] [address] [id number] [place] [address]- 7876 15 Jul, 2011 [facility] [address] [id number] [place] [address] 2546 06 Jul, 2011 [facility] [address] [id number] [place] [address]- 1606 Jul, [facility] [address] [id number] [place] [address] 2549 Jun, [facility] [address] [id number] [place] [address] Jun, [facility] [address] [id number] [place] [address] Jun, [facility] [address] [facility] [id number] [place] [address] Jun, [facility] [address] [id number] [place] [address] 29 May, 2011 [facility] [address] [id number] [place] [address] 28 May, 2011 [facility] [address] [facility] [id number] [place] [address] May, [facility] [address] [id number] [place] [address] May, [facility] [place] [facility] [address] [id number] [place] [address] May, [facility] [place] [facility] [address] [id number] [place] [address] 30 Apr, 2011 [facility] [place] [facility] [address] [id number] [place] [address] 14 Apr, 2011 [facility] [place] [facility] [address] [id number] [place] [address] Mar, [facility] [id number] [place] [address] Feb, [facility] [id number], [place] [address] Feb, [facility] [id number], [place] [address] May, [facility] [id number], [place] [address] Apr, [facility] [id number], [place] [address] Apr, [facility] [id number], [place] [address] Apr, [facility] [id number], [place] [address] Apr, [facility] [id number], [place] [address] Apr, [facility] [id number], [place] [address] Apr, [facility] [id number] [address] Mar, [facility] [id number], [place] [address] Mar, [facility] [id number] [address] Sep, IMMUNIZATIONS No Known Immunizations SOCIAL HISTORY Never Assessed REASON FOR VISIT Request for [facility] PLAN OF CARE VITAL SIGNS MEDICATIONS Unknown [...] attempts Hospitalization History Ischemic colitis, dementia, generalized debility-[facility] 07/30/17
--- OUTSIDE RECORDS SUMMARY | 2018-06-23 23:21 | XMS REPORT ---
Author Author CAOR CAMARA Organization [facility] Address [address] [place] [address] Care Team Providers Care Site Controller Name Role Phone CARO CAMARA Unavailable PROBLEMS Type Condition ICD9-CM Code INT38-UE Code Onset Dates Condition Status SNOMED Code Problem Mood disorder F39 Active 38211067 Problem Dementia without behavioral disturbance, unspecified dementia type F03.90 Active 23299185 Problem Hypertension, benign I10 Active 07140289 Problem Cognitive dysfunction F09 Active 582682457 Problem 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 341138649 Problem Anxiety disorder, unspecified F41.9 Active 029573680 Problem Major depression F32.9 Active 928586185 ALLERGIES No Information ENCOUNTERS Encounter Location Date Diagnosis [place] [id number] [address] Jan, [place] [id number] [place] [address] 47519- 4563 Dec, Mood disorder F39 [place] [id number] [place] [address] 22728- 7730 Nov, [place] [id number] [place] [address] 03021- 7367 Nov, Dementia without behavioral disturbance, unspecified dementia type F03.90 ; Cognitive dysfunction F09 and Major depression F32.9 [facility] [address] [place] [address] October, Encounter for examination for admission to detention Z02.2 ; Tardive dyskinesia G24.01 ; Major depression F32.9 ; Anxiety disorder, unspecified F41.9 ; Cognitive dysfunction F09 and Dementia without behavioral disturbance, unspecified dementia type F03.90 [place] [id number] [place] [address] [id number] October, [facility] [id number] [place] [address] 75377- 5654 October, [facility] [id number] [place] [address] [id number] 4651 Sep, Acute deep vein thrombosis (DVT) of proximal vein of left lower extremity I82.4Y2 [facility] [id number] [place] [address] 48161- 0459 Sep, Mood disorder F39 and Dementia associated with other underlying disease without behavioral disturbance F02.80 [facility] [address] [id number] [place] [address] 89802- 6848 Sep, Mood disorder F39 and Acute deep vein thrombosis (DVT) of proximal vein of left lower extremity I82.4Y2 [place] [address] [place] [id number] [place] [address] 60141- 1147 Sep, Via [facility] [address] [place] [id number] Sep, History of DVT (deep vein thrombosis) Z86.718 and Dementia F03.90 [facility] [id number] [place] [address] 83078- 8049 Sep, Mood disorder F39 and Dementia without behavioral disturbance, unspecified dementia type F03.90 [facility] [id number] [place] [address] 31939- 6225 Aug, [facility] [id number] [place] [address] [id number] [phone] Aug, [facility] [address] [id number] [place] [address] [id number] Aug, [facility] [id number] [place] [address] 22649- 8402 Aug, [facility] [id number] [place] [address] [id number] 9086 Aug, Acute deep vein thrombosis (DVT) of proximal vein of left lower extremity I82.4Y2 Via [facility] [address] [place] [id number] Aug, Left leg swelling M79.89 [facility] [id number] [place] [address] 71809- 0573 Aug, Mood disorder F39 and Dementia without behavioral disturbance, unspecified dementia type F03.90 [facility] [id number] [place] [address] 82459- 5443 Jul, [facility] [address] [place] [id number] [place] [address] 51508- 0483 Jul, Dementia without behavioral disturbance, unspecified dementia type F03.90 and Mood disorder F39 Via [facility] [address] [place] [id number] Jul, Encounter for examination for admission to detention Z02.2 ; Rectal bleed K62.5 ; Dementia without behavioral disturbance, unspecified dementia type F03.90 ; Hypertension, benign I10 ; Edema R60.9 and Major depression F32.9 [facility] [id number] [place] [address] [id number] Jul, [facility] [id number] [place] [address] 75750- 6373 Apr, Dementia without behavioral disturbance, unspecified dementia type F03.90 and Mood disorder F39 [facility] [id number] [place] [address] 79927- 8590 Apr, [facility] [id number] [place] [address] 47838- 1406 Feb, Hypertension, benign I10 [facility] [address] [id number] [place] [address] 88040- 1175 Dec, Major depression F32.9 ; Anxiety disorder, unspecified F41.9 ; Cognitive dysfunction F09 and Dementia without behavioral disturbance, unspecified dementia type F03.90 [facility] [id number] [place] [address] 52994- 4548 October, Hypertension, benign I10 [facility] [id number] [place] [address] [id number]- 8766 Sep, Major depression F32.9 ; Anxiety disorder, unspecified F41.9 and Cognitive dysfunction F09 [facility] [id number] [place] [address] 09798- 9876 Apr, Major depression F32.9 and Cognitive dysfunction F09 [facility] [address] [place] [id number] [place] [address] 41158- 8463 Jan, Anxiety disorder, unspecified F41.9 ; Major depression F32.9 and Cognitive dysfunction F09 [place] [address] [place] [id number] [place] [address] 28454- 2876 Jan, [place] [address] [place] [id number] [place] [address] 48617- 8664 Dec, [place] [address] [place] [id number] [place] [address] 99680- 5778 Dec, [facility] [address] [place] [address] [id number] [place] [address] 41817- 1632 Nov, Anxiety disorder, unspecified F41.9 ; Major depression F32.9 and Cognitive dysfunction F09 [place] [address] [place] [id number] [place] [address] 24592- 4408 October, Dementia without behavioral disturbance, unspecified dementia type F03.90 [facility] [address] [place] [id number] [place] [address] 03668- 5299 Sep, Cognitive dysfunction F09 and Edema R60.9 [place] [address] [place] [id number] [place] [address] 86830- 8719 Sep, Cognitive dysfunction F09 and Edema R60.9 [place] [id number] [place] [address] 49540- 7721 Aug, 2016 Self-care deficit for medication administration R41.89 ; Self-care deficit in patient living alone R46.89 and Cognitive dysfunction F09 [facility] [address] [place] [id number] [place] [address] 14598- 3755 Aug, 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 and Unspecified intracranial injury without loss of consciousness, sequela S06.9X0S [facility] [id number] [place] [address] 68941- 7705 Jul, [facility] [id number] [place] [address] 48020- 4104 Jun, Anxiety disorder, unspecified F41.9 and Major depression F32.9 [facility] [address] [place] [id number] [place] [address] 63076- 6777 Jun, [facility] [address] [place] [id number] [place] [address] 66498- 3214 May, [facility] [address] [place] [id number] [place] [address] 96086- 4344 May, Nausea R11.0 [facility] [address] [place] [id number] [place] [address] 06112- 4832 Apr, [facility] [address] [place] [address] [id number] [place] [address] 02176- 0755 Mar, Major depression F32.9 [place] [address] [place] [id number] [place] [address] 08314- 2532 Mar, Encounter for immunization Z23 [facility] [address] [place] [id number] [place] [address] 71967- 7520 Mar, Major depression F32.9 and Anxiety disorder, unspecified F41.9 [facility] [address] [place] [id number] [place] [address] 74231- 1144 Dec, Major depression, chronic 296.20 and Anxiety disorder, unspecified 300.00 [facility] [address] [place] [id number] [place] [address] 76054- 8036 October, Hypertension 401.9 [facility] [address] [place] [address]- 8954 14 Sep, 2014 [facility] [address] [id number] [place] [address]- 9182 13 Sep, 2014 [facility] [place] [facility] [address] [id number] [place] [address]- 0907 18 Jul, 2014 [facility] [place] [facility] [address] [id number] [place] [address]- 8663 16 Jul, 2014 [facility] [place] [facility] [address] [id number] [place] [address]- 6850 16 Jul, 2014 [facility] [place] [facility] [address] [id number] [place] [address]- 3369 May, [facility] [place] [facility] [address] [id number] [place] [address]- 9604 May, [facility] [place] [facility] [address] [id number] [place] [address]- 6673 May, [facility] [place] [facility] [address] [id number] [place] [address]- 8705 May, [facility] [place] [facility] [address] [facility] [id number] [place] [address]- 7763 Apr, [facility] [address] [facility] [id number] [place] [address]- 2625 Apr, [facility] [place] [facility] [address] [id number] [place] [address]- 4699 Feb, [facility] [place] [facility] [address] [id number] [place] [address]- 2447 Feb, [facility] [place] [facility] [address] [id number] [place] [address]- 9003 Jan, [facility] [place] [facility] [address] [id number] [place] [address]- 6322 Jan, [facility] [place] [facility] [address] [id number] [place] [address]- 8905 Jan, [facility] [place] [facility] [address] [id number] [place] [address]- 3319 Jan, [facility] [place] [facility] [address] [id number] [place] [address]- 8055 Dec, [facility] [place] [facility] [address] [id number] [place] [address]- 5163 Dec, [facility] [place] [facility] [address] [id number] [place] [address]- 8144 Nov, [facility] [place] [facility] [address] [id number] [place] [address]- 4842 Nov, [facility] [place] [facility] [address] [id number] [place] [address]- 5428 Nov, [facility] [place] [facility] [address] [id number] [place] [address]- 0716 Nov, [facility] [place] [facility] [address] [id number] [place] [address]- 5089 October, [facility] [place] [facility] [address] [id number] [place] [address]- 8729 October, [facility] [place] [facility] [address] [id number] [place] [address]- 4624 Sep, [facility] [place] [facility] [address] [id number] [place] [address]- 1509 Sep, [facility] [place] [facility] [address] [id number] [place] [address]- 7922 Sep, [facility] [place] [facility] [address] [id number] [place] [address]- 1848 Sep, [facility] [place] [facility] [address] [id number] [place] [address]- 1171 Sep, [facility] [place] [facility] [address] [id number] [place] [address]- 5689 Sep, [facility] [place] [facility] [address] [id number] [place] [address]- 7219 Aug, [facility] [address] [id number] [place] [address]- 3904 Aug, [facility] [address] [id number] [place] [address]- 6326 Jul, [facility] [address] [id number] [place] [address]- 5236 Jul, [facility] [address] [id number] [place] [address]- 1548 May, [facility] [address] [id number] [place] [address]- 1352 May, [facility] [address] [id number] [place] [address]- 1134 May, [facility] [address] [id number] [place] [address]- 8632 May, [facility] [address] [id number] [place] [address]- 7992 May, [facility] [address] [id number] [place] [address]- 5211 May, [facility] [address] [facility] [id number] [place] [address]- 2599 Apr, [facility] [address] [id number] [place] [address]- 7740 Apr, [facility] [place] [facility] [address] [id number] [address]- 2540 Apr, [facility] [place] [facility] [address] [id number] [place] [address]- 4585 Apr, [facility] [place] [facility] [address] [id number] [place] [address]- 9152 Apr, [facility] [place] [facility] [address] [facility] [id number] [place] [address]- 7807 Apr, [facility] [place] [facility] [address] [id number] [place] [address]- 9323 Feb, [facility] [address] [id number] [place] [address]- 8726 Feb, [facility] [place] [facility] [address] [id number] [place] [address] 2546 Feb, [facility] [place] [facility] [address] [id number] [place] [address] 2546 Feb, [facility] [place] [facility] [address] [id number] [place] [address]- 9163 Jan, [facility] [place] [facility] [address] [id number] [place] [address]- 6720 Dec, [facility] [place] [facility] [address] [id number] [place] [address]- 0192 Dec, [facility] [address] [id number] [place] [address]- 9390 Dec, [facility] [address] [id number] [place] [address]- 7461 Dec, [facility] [place] [facility] [address] [id number] [place] [address]- 9588 Nov, [facility] [place] [facility] [address] [id number] [place] [address]- 0110 Nov, [facility] [place] [facility] [address] [id number] [place] [address]- 3443 October, [facility] [place] [facility] [address] [id number] [place] [address]- 2549 October, [facility] [place] [facility] [address] [id number] [place] [address]- 0886 October, [facility] [place] [facility] [address] [id number] [place] [address]- 2546 October, [facility] [place] [facility] [address] [id number] [place] [address]- 4534 Sep, 2012 [facility] [address] [id number] [place] [address]- 2404 Aug, [facility] [place] [facility] [address] [id number] [place] [address]- 9122 18 Aug, 2012 [facility] [place] [facility] [address] [id number] [place] [address]- 1563 15 Aug, 2012 [facility] [place] [facility] [address] [id number] [place] [address]- 0370 06 Aug, 2012 [facility] [place] [facility] [address] [id number] [place] [address]- 6387 Jul, [facility] [place] [facility] [address] [id number] [place] [address]- 2027 Jul, [facility] [place] [facility] [address] [id number] [place] [address]- 1916 Jul, [facility] [place] [facility] [address] [id number] [place] [address]- 5899 Jun, [facility] [place] [facility] [address] [id number] [place] [address]- 0721 Jun, [facility] [place] [facility] [address] [id number] [place] [address]- 3570 May, [facility] [place] [facility] [address] [id number] [place] [address]- 3373 May, [facility] [place] [facility] [address] [id number], [place] [address]- 0074 Apr, [facility] [place] [facility] [address] [id number] [place] [address]- 0478 Apr, [facility] [place] [facility] [address] [id number] [place] [address]- 7743 Apr, [facility] [place] [facility] [address] [id number] [place] [address]- 8141 Apr, [facility] [place] [facility] [address] [id number] [place] [address]- 5534 Apr, [facility] [place] [facility] [address] [id number] [place] [address]- 4239 Apr, [facility] [place] [facility] [address] [id number] [place] [address]- 8506 Mar, [facility] [place] [facility] [address] [id number] [place] [address]- 7302 Mar, [facility] [place] [facility] [address] [id number] [place] [address]- 2534 Mar, [facility] [place] [facility] [address] [id number] [place] [address]- 7652 Mar, [facility] [place] [facility] [address] [id number] [place] [address]- 5660 Mar, [facility] [place] [facility] [address] [id number] [place] [address]- 8971 Mar, [facility] [place] [facility] [address] [id number] [place] [address]- 9741 Mar, [facility] [place] [facility] [address] [id number] [place] [address]- 4512 Feb, [facility] [place] [facility] [address] [id number] [place] [address]- 2934 Feb, [facility] [place] [facility] [address] [id number] [place] [address]- 2546 Jan, [facility] [place] [facility] [address] [id number] [place] [address] 2542 Dec, [facility] [place] [facility] [address] [id number] [place] [address]- 2546 Dec, [facility] [place] [facility] [address] [id number] [place] [address]- 2546 Nov, [facility] [place] [facility] [address] [id number] [place] [address]- 2893 Nov, [facility] [place] [facility] [address] [id number] [place] [address]- 1233 13 Nov, 2011 [facility] [place] [facility] [address] [id number] [place] [address]- 9330 October, [facility] [place] [facility] [address] [id number] [place] [address]- 2983 Sep, [facility] [place] [facility] [address] [id number] [place] [address]- 7920 16 Sep, 2011 [facility] [place] [facility] [address] [id number] [place] [address]- 3733 04 Sep, 2011 [facility] [place] [facility] [address] [id number] [place] [address]- 2469 26 Aug, 2011 [facility] [place] [facility] [address] [id number] [place] [address]- 3983 Aug, [facility] [place] [facility] [address] [id number] [place] [address]- 8471 Aug, [facility] [place] [facility] [address] [id number] [place] [address]- 8295 15 Aug, 2011 [facility] [place] [facility] [address] [id number] [place] [address]- 5587 14 Aug, 2011 [facility] [place] [facility] [address] [id number] [place] [address]- 4154 Aug, [facility] [place] [facility] [address] [id number] [place] [address]- 2737 08 Aug, 2011 [facility] [place] [facility] [address] [id number] [place] [address]- 6483 05 Aug, 2011 [facility] [place] [facility] [address] [id number] [place] [address]- 1776 27 Jul, 2011 [facility] [place] [facility] [address] [id number] [place] 1535 Jul, [facility] [place] [facility] [address] [id number] [place] [address]- 1025 20 Jul, 2011 [facility] [address] [id number] [place] [address]- 1266 15 Jul, 2011 [facility] [address] [id number] [place] [address] 2546 06 Jul, 2011 [facility] [address] [id number] [place] [address]- 1296 Jul, [facility] [address] [id number] [place] [address] 2549 Jun, [facility] [address] [id number] [place] [address]- 1299 Jun, [facility] [address] [id number] [place] [address]- 3644 Jun, [facility] [address] [facility] [id number] [place] [address]- 0987 Jun, [facility] [address] [id number] [place] [address]- 6090 29 May, 2011 [facility] [address] [id number] [place] [address]- 6379 [address], [address] [facility] [address] [facility] [id number] [place] [address]- 0534 May, [facility] [address] [id number] [place] [address] 2546 May, [facility] [place] [facility] [address] [id number] [place] [address] 2543 May, [facility] [place] [facility] [address] [id number] [place] [address] 2540 30 Apr, 2011 [facility] [place] [facility] [address] [id number] [place] [address] 14 Apr, 2011 [facility] [place] [facility] [address] [id number] [place] [address] Mar, [facility] [address] [facility] [id number], [place] [address] 15 Feb, 2011 [facility] [address] [facility] [id number], [place] [address] Feb, [facility] [address] [facility] [id number], [place] [address] May, [facility] [address] [facility] [id number], [place] [address] Apr, [facility] [address] [facility] [id number][place] [address] Apr, [facility] [address] [facility] [id number], [place] [address] Apr, [facility] [id number] [address] Apr, [facility] [id number] [address] Apr, [facility] [id number] [address] Apr, [facility] [address] [id number], [place] [address] Mar, [facility] [id number] [address] Mar, [facility] [address] [id number], [place] [address] Sep, IMMUNIZATIONS No Known Immunizations SOCIAL HISTORY Never Assessed REASON FOR VISIT [facility] PLAN OF CARE Activity Details Follow Up prn Reason: VITAL SIGNS MEDICATIONS Medication Instructions Dosage Frequency Start Date End Date Duration Status Trihexyphenidyl HCl 2 MG Orally twice a day 0.5 tablet 12h 28 Jul, 2017 Active BusPIRone HCl 10 MG Orally Twice a day 1 tablet 12h Active Seroquel 300 MG Orally Once a day 1 tablet at bedtime 24h 14 Apr, 2016 Active Lovastatin 20 mg Orally Once a day 1 tablet with a meal 24h Active Pantoprazole Sodium 40 MG Orally Once a day 1 tablet 24h Active Nicoderm CQ 14 MG/24HR Transdermal Once a day 1 patch to skin 24h Active Lisinopril 10 mg Orally Once a day 1 tablet 24h Active RESULTS No Results PROCEDURES Procedure Date Ordered Result Body Site Minor complication (15 mins) August 13, 2017 INSTRUCTIONS MEDICATIONS ADMINISTERED No Known Medications [...] attempts Hospitalization History Ischemic colitis, dementia, generalized debility-[facility] 07/30/17
--- OUTSIDE RECORDS SUMMARY | 2018-06-23 23:22 | XMS REPORT ---
Author Author GRACE WHIT [facility] Address [address] [place] [address] Care Team Providers Care System Specialist Name Role Phone SAADGERRI WUA Unavailable PROBLEMS Type Condition ICD9-CM Code [id number] Code Onset Dates Condition Status SNOMED Code Problem Mood disorder F39 Active 70623973 Problem Dementia without behavioral disturbance, unspecified dementia type F03.90 Active 50244525 Problem Hypertension, benign I10 Active 90735705 Problem Cognitive dysfunction F09 Active 442215599 Problem 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 707611581 Problem Anxiety disorder, unspecified F41.9 Active 991777530 Problem Major depression F32.9 Active 942421688 ALLERGIES Substance Reaction Event Type Date Status Stadol hives Drug Allergy Aug, Active Morphine Sulfate hives Drug Allergy Aug, Active Iodinated Contrast Media - Iv Dye Unknown Non Drug Allergy Aug, Active ENCOUNTERS Encounter Location Date Diagnosis [facility] [id number] [address] Jan, [facility] [address] [address] Nov, [facility] [id number] [place] [address] 86892- 0647 Nov, Dementia without behavioral disturbance, unspecified dementia type F03.90 ; Cognitive dysfunction F09 and Major depression F32.9 [facility] [address] [place] [address] October, Encounter for examination for admission to prison Z02.2 ; Tardive dyskinesia G24.01 ; Major depression F32.9 ; Anxiety disorder, unspecified F41.9 ; Cognitive dysfunction F09 and Dementia without behavioral disturbance, unspecified dementia type F03.90 [facility] [address] [address] October, [facility] [id number] [place] [address] 49505- 1242 October, [facility] [id number] [place] [address] 88445- 1990 Sep, Acute deep vein thrombosis (DVT) of proximal vein of left lower extremity I82.4Y2 [facility] [id number] [place] [address] 89324- 6108 Sep, Mood disorder F39 and Dementia associated with other underlying disease without behavioral disturbance F02.80 [facility] [id number] [place] [address] 19177- 1402 Sep, Mood disorder F39 and Acute deep vein thrombosis (DVT) of proximal vein of left lower extremity I82.4Y2 [facility] [id number] [place] [address] 52260- 7017 16 Sep, 2017 [facility] [employer] [address] [place] [id number] Sep, History of DVT (deep vein thrombosis) Z86.718 and Dementia F03.90 [facility] [id number] [place] [address] 61007- 9401 Sep, Mood disorder F39 and Dementia without behavioral disturbance, unspecified dementia type F03.90 [facility] [id number] [place] [address] 71429- 9359 Aug, [facility] [id number] [place] [address] 95648- 5377 Aug, [facility] [id number] [place] [id number] Aug, [facility] [id number] [place] [address] [id number]- 4021 Aug, [facility] [id number] [place] [address] 61400- 6601 Aug, Acute deep vein thrombosis (DVT) of proximal vein of left lower extremity I82.4Y2 [facility] [employer] [address] [place] [id number] Aug, Left leg swelling M79.89 [facility] [id number] [place] [address] 47510- 8363 Aug, Mood disorder F39 and Dementia without behavioral disturbance, unspecified dementia type F03.90 [facility] [id number] [place] [address] 69831- 7400 Jul, [facility] [id number] [place] [address] 96217- 8809 Jul, Dementia without behavioral disturbance, unspecified dementia type F03.90 and Mood disorder F39 [facility] [employer] [address] [place] [id number] Jul, Encounter for examination for admission to prison Z02.2 ; Rectal bleed K62.5 ; Dementia without behavioral disturbance, unspecified dementia type F03.90 ; Hypertension, benign I10 ; Edema R60.9 and Major depression F32.9 [facility] [id number] [place] [address] [id number] Jul, [facility] [id number] [place] [address] 76939- 4374 Apr, Dementia without behavioral disturbance, unspecified dementia type F03.90 and Mood disorder F39 [facility] [id number] [place] [address] 24871- 1066 Apr, [facility] [id number] [place] [address] 24190- 1879 Feb, Hypertension, benign I10 [facility] [id number] [place] [address] 81869- 3916 Dec, Major depression F32.9 ; Anxiety disorder, unspecified F41.9 ; Cognitive dysfunction F09 and Dementia without behavioral disturbance, unspecified dementia type F03.90 [facility] [id number] [place] [address] 14810- 9822 October, Hypertension, benign I10 [facility] [id number] [place] [address] 19648- 0556 Sep, Major depression F32.9 ; Anxiety disorder, unspecified F41.9 and Cognitive dysfunction F09 [facility] [id number] [place] [address] 20093- 1276 Apr, Major depression F32.9 and Cognitive dysfunction F09 [facility] [id number] [place] [address] 83660- 4775 Jan, Anxiety disorder, unspecified F41.9 ; Major depression F32.9 and Cognitive dysfunction F09 [facility] [id number] [place] [address] 51827- 0186 Jan, [facility] [id number] [place] [address] 20669- 1370 Dec, [facility] [id number] [place] [address] 17907- 2358 Dec, [facility] [id number] [place] [address] 91942- 0940 Nov, Anxiety disorder, unspecified F41.9 ; Major depression F32.9 and Cognitive dysfunction F09 [facility] [address] [place] [address] 74483- 6543 October, Dementia without behavioral disturbance, unspecified dementia type F03.90 [facility] [id number] [place] [address] 56167- 2220 Sep, Cognitive dysfunction F09 and Edema R60.9 [facility] [id number] [place] [address] 38594- 6024 Sep, Cognitive dysfunction F09 and Edema R60.9 [facility] [address] [place] [address] 28906- 0171 Aug, 2016 Self-care deficit for medication administration R41.89 ; Self-care deficit in patient living alone R46.89 and Cognitive dysfunction F09 [facility] [id number] [place] [address] 50671- 9102 Aug, 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 and Unspecified intracranial injury without loss of consciousness, sequela S06.9X0S [facility] [id number] [place] [address] 81536- 9460 Jul, [facility] [address] [address]- 5732 Jun, Anxiety disorder, unspecified F41.9 and Major depression F32.9 [facility] [address] 63552- 0816 Jun, [facility] [id number] [place] [address] 67576- 7564 May, [facility] [address] 80477- 5418 May, Nausea R11.0 [facility] [id number] [place] [address] 11690- 0037 Apr, [facility] [id number] [place] [address] 23514- 1405 Mar, Major depression F32.9 [facility] [id number] [place] [address] 69120- 9389 Mar, Encounter for immunization Z23 [facility] [id number] [place] [address] 21267- 0366 Mar, Major depression F32.9 and Anxiety disorder, unspecified F41.9 [facility] [address] 55983- 3536 Dec, Major depression, chronic 296.20 and Anxiety disorder, unspecified 300.00 [facility] [id number] [place] [address] 53434- 2128 October, Hypertension 401.9 [facility] [id number] [address]- 7111 14 Sep, 2014 [facility] [place] [facility] [address] [id number] [place] [address]- 4775 13 Sep, 2014 [facility] [place] [facility] [address] [id number] [place] [address]- 2170 18 Jul, 2014 [facility] [place] [facility] [address] [id number] [place] [address]- 0062 16 Jul, 2014 [facility] [place] [facility] [address] [id number] [place] [address]- 3636 16 Jul, 2014 [facility] [place] [facility] [address] [id number] [place] [address]- 4721 May, [facility] [place] [facility] [address] [id number] [place] [address]- 6330 May, [facility] [place] [facility] [address] [id number] [place] [address]- 0438 May, [facility] [place] [facility] [address] [id number] [place] [address]- 1286 May, [facility] [place] [facility] [address] [id number] [place] [address]- 3537 Apr, [facility] [place] [facility] [address] [id number] [place] [address]- 3387 Apr, [facility] [place] [facility] [address] [id number] [place] [address]- 8079 Feb, [facility] [place] [facility] [address] [id number] [place] [address]- 6367 Feb, [facility] [place] [facility] [address] [id number] [place] [address]- 6929 Jan, [facility] [place] [facility] [address] [id number] [place] [address]- 1707 Jan, [facility] [place] [facility] [address] [id number] [place] [address]- 6700 Jan, [facility] [place] [facility] [address] [id number] [place] [address]- 8596 Jan, [facility] [place] [facility] [address] [id number] [place] [address]- 7948 Dec, [facility] [place] [facility] [address] [id number] [place] [address]- 0850 Dec, [facility] [place] [facility] [address] [id number] [place] [address]- 0695 Nov, [facility] [place] [facility] [address] [id number] [place] [address]- 3354 Nov, [facility] [place] [facility] [address] [id number] [place] [address]- 0750 Nov, [facility] [place] [facility] [address] [id number] [place] [address]- 9937 Nov, [facility] [place] [facility] [address] [id number] [place] [address]- 1035 October, [facility] [place] [facility] [address] [id number] [place] [address]- 9565 October, [facility] [place] [facility] [address] [id number] [place] [address]- 3338 Sep, [facility] [place] [facility] [address] [id number] [place] [address]- 2497 Sep, [facility] [place] [facility] [address] [id number] [place] [address]- 9135 Sep, [facility] [place] [facility] [address] [id number] [place] [address]- 0961 Sep, [facility] [place] [facility] [address] [id number] [place] [address]- 4166 Sep, [facility] [place] [facility] [address] [id number] [place] [address]- 6158 Sep, [facility] [place] [facility] [address] [id number] [place] [address]- 5939 Aug, [facility] [address] [id number] [place] [address]- 4923 Aug, [facility] [address] [id number] [place] [address]- 6686 Jul, [facility] [address] [id number] [place] [address]- 4906 Jul, [facility] [address] [id number] [place] [address]- 5381 May, [facility] [address] [id number] [place] [address]- 3441 May, [facility] [address] [id number] [place] [address]- 9840 May, [facility] [address] [id number] [place] [address]- 2420 May, [facility] [address] [id number] [place] [address]- 4392 May, [facility] [address] [id number] [place] [address]- 6045 May, [facility] [address] [id number] [place] [address]- 8946 Apr, [facility] [address] [id number] [place] [address] 2546 Apr, [facility] [address] [id number] [place] [address]- 2542 Apr, [facility] [place] [facility] [address] [id number] [place] [address]- 0656 Apr, [facility] [place] [facility] [address] [id number] [place] [address]- 2546 Apr, [facility] [address] [id number] [place] [address]- 1021 Apr, [facility] [place] [facility] [address] [id number] [place] [address] 2541 Feb, [facility] [address] [id number] [place] [address] 2544 Feb, [facility] [address] [id number] [place] [address] 2547 Feb, [facility] [place] [facility] [address] [id number] [place] [address]- 2546 Feb, [facility] [address] [id number] [place] [address] 2542 Jan, [facility] [address] [id number] [place] [address]- 6576 Dec, [facility] [address] [id number] [place] [address]- 1826 Dec, [facility] [address] [id number] [place] [address]- 0671 Dec, [facility] [address] [id number] [place] [address]- 7008 Dec, [facility] [address] [id number] [place] [address]- 3737 Nov, [facility] [place] [facility] [address] [id number] [place] [address]- 2546 Nov, [facility] [place] [facility] [address] [id number] [address]- 2543 October, [facility] [place] [facility] [address] [id number] [place] [address]- 254 October, [facility] [place] [facility] [address] [id number] [place] [address]- 2546 October, [facility] [place] [facility] [address] [id number] [place] [address]- 2546 October, [facility] [place] [facility] [address] [id number] [place] [address]- 8977 16 Sep, 2012 [facility] [address] [id number] [place] [address]- 8939 Aug, [facility] [place] [facility] [address] [id number] [place] [address]- 8926 18 Aug, 2012 [facility] [place] [facility] [address] [facility] [id number] [place] [address]- 2783 15 Aug, 2012 [facility] [place] [facility] [address] [id number] [place] [address]- 9044 06 Aug, 2012 [facility] [address] [id number] [place] [address]- 8852 Jul, [facility] [place] [facility] [address] [facility] [id number] [place] [address]- 2809 Jul, [facility] [address] [facility] [id number] [place] [address]- 7852 Jul, [facility] [place] [facility] [address] [facility] [id number] [place] [address]- 2590 Jun, [facility] [address] [facility] [id number] [place] [address]- 2795 Jun, [facility] [address] [facility] [id number] [place] [address]- 3150 May, [facility] [address] [facility] [id number] [place] [address]- 6430 May, [facility] [place] [facility] [address] [facility] [id number] [place] [address]- 9525 Apr, [facility] [place] [facility] [address] [id number] [place] 8323 Apr, [facility] [place] [facility] [address] [facility] [id number] [place] [address]- 7161 Apr, [facility] [place] [facility] [address] [facility] [id number] [place] 3412 Apr, [facility] [place] [facility] [address] [id number] [place] [address]- 2919 Apr, [facility] [place] [facility] [address] [id number] [place] [address]- 8186 Apr, [facility] [place] [facility] [address] [id number] [place] [address]- 7596 Mar, [facility] [place] [facility] [address] [id number] [place] [address]- 8436 Mar, [facility] [place] [facility] [address] [id number] [place] [address]- 6760 Mar, [facility] [place] [facility] [address] [id number] [place] [address]- 8611 Mar, [facility] [place] [facility] [address] [id number] [place] 0500 Mar, [facility] [place] [facility] [address] [id number] [place] [address]- 1158 Mar, [facility] [place] [facility] [address] [id number] [place] [address]- 1857 Mar, [facility] [place] [facility] [address] [id number] [place] [address]- 5825 Feb, [facility] [place] [facility] [address] [id number] [place] [address]- 4895 Feb, [facility] [place] [facility] [address] [id number] [place] [address]- 6502 Jan, [facility] [place] [facility] [address] [id number] [place] [address]- 1916 Dec, [facility] [place] [facility] [address] [id number] [place] [address]- 0426 Dec, [facility] [place] [facility] [address] [id number] [place] [address] 2546 Nov, [facility] [place] [facility] [address] [id number] [place] [address]- 5680 Nov, [facility] [place] [facility] [address] [id number] [place] [address]- 0887 Nov, [facility] [place] [facility] [address] [id number] [place] [address]- 3985 October, [facility] [place] [facility] [address] [id number] [place] [address]- 5301 Sep, [facility] [place] [facility] [address] [id number] [place] [address]- 4360 16 Sep, 2011 [facility] [place] [facility] [address] [id number] [place] [address]- 5392 Sep, [facility] [place] [facility] [address] [id number] [place] [address]- 2514 Aug, [facility] [place] [facility] [address] [id number] [place] [address]- 3944 Aug, [facility] [place] [facility] [address] [id number] [place] [address]- 3321 Aug, [facility] [place] [facility] [address] [id number] [place] [address]- 7949 15 Aug, 2011 [facility] [place] [facility] [address] [facility] [id number] [place] [address]- 3345 14 Aug, 2011 [facility] [place] [facility] [address] [id number] [place] [address]- 7203 12 Aug, 2011 [facility] [place] [facility] [address] [id number] [place] [address]- 0199 08 Aug, 2011 [facility] [place] [facility] [address] [id number] [place] [address]- 0762 05 Aug, 2011 [facility] [place] [facility] [address] [id number] [place] [address]- 4597 27 Jul, 2011 [facility] [place] [facility] [address] [id number] [place] [address]- 5166 Jul, [facility] [place] [facility] [address] [id number] [place] [address]- 4057 20 Jul, 2011 [facility] [address] [id number] [place] [address]- 0256 15 Jul, 2011 [facility] [place] [facility] [address] [id number] [place] [address] 2546 06 Jul, 2011 [facility] [place] [facility] [address] [id number] [place] [address] 2546 Jul, [facility] [place] [facility] [address] [id number] [place] [address] 2549 Jun, [facility] [place] [facility] [address] [id number] [place] [address]- 3956 Jun, [facility] [place] [facility] [address] [id number] [place] [address]- 3326 Jun, [facility] [place] [facility] [address] [id number] [place] [address]- 5075 Jun, [facility] [address] [id number] [place] [address] 2542 May, [facility] [place] [facility] [address] [id number] [place] [address]- 3575 May, [facility] [place] [facility] [address] [facility] [id number] [place] [address]- 1754 May, [facility] [place] [facility] [address] [id number] [place] [address]- 2146 May, [facility] [place] [facility] [address] [id number] [place] [address] 2546 May, [facility] [place] [facility] [address] [id number] [place] [address] 2546 30 Apr, 2011 [facility] [place] [facility] [address] [id number] [place] [address] 2546 14 Apr, 2011 [facility] [place] [facility] [address] [id number] [place] [address] Mar, [facility] [address] [address] 15 Feb, 2011 [facility] [address] [facility] [id number] [address] Feb, [facility] [address] [address] May, [facility] [id number] [address] Apr, [facility] [id number] [address] Apr, [facility] [id number] [place] [address] Apr, [facility] [address] [address] Apr, [facility] [address] [address] Apr, [facility] [address] [address] Apr, [facility] [address] [address] Mar, [facility] [address] [address] Mar, [facility] [address] [address] Sep, IMMUNIZATIONS No Known Immunizations SOCIAL HISTORY Never Assessed REASON FOR VISIT f/u PLAN OF CARE VITAL SIGNS MEDICATIONS Medication Instructions Dosage Frequency Start Date End Date Duration Status Nicoderm CQ 14 MG/24HR Transdermal Once a day 1 patch to skin 24h Active Pantoprazole Sodium 40 MG Orally Once a day 1 tablet 24h Active Trihexyphenidyl HCl 2 MG Orally twice a day 0.5 tablet 12h 28 Jul, 2017 Active Lovastatin 20 mg Orally Once a day 1 tablet with a meal 24h Active Lisinopril 10 mg Orally Once a day 1 tablet 24h Active BusPIRone HCl 10 MG Orally Twice a day 1 tablet 12h Active Seroquel 300 MG Orally Once a day 1 tablet at bedtime 24h Apr, Active RESULTS No Results PROCEDURES Procedure Date [...] attempts Hospitalization History Ischemic colitis, dementia, generalized debility-[facility] 07/30/17
--- OUTSIDE RECORDS SUMMARY | 2018-06-23 23:22 | XMS REPORT ---
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 Name Role Phone ORIANA GUERRERO Unavailable PROBLEMS Type Condition ICD9-CM Code TEW35-JC Code Onset Dates Condition Status SNOMED Code Problem Mood disorder F39 Active 69165716 Problem Dementia without behavioral disturbance, unspecified dementia type F03.90 Active 95520022 Problem Hypertension, benign I10 Active 57616202 Problem Cognitive dysfunction F09 Active 173089924 Problem 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 518815761 Problem Anxiety disorder, unspecified F41.9 Active 689995570 Problem Major depression F32.9 Active [id number] ALLERGIES No Information ENCOUNTERS Encounter Location Date Diagnosis [facility] [place] [id number] [place] [address] 14143- 0662 Jan, [place] [id number] [place] [address] 33147- 7211 Nov, [place] [id number] [place] [address] 85153- 0538 Nov, Dementia without behavioral disturbance, unspecified dementia type F03.90 ; Cognitive dysfunction F09 and Major depression F32.9 [facility] [address] [place] [address] October, Encounter for examination for admission to senior living Z02.2 ; Tardive dyskinesia G24.01 ; Major depression F32.9 ; Anxiety disorder, unspecified F41.9 ; Cognitive dysfunction F09 and Dementia without behavioral disturbance, unspecified dementia type F03.90 [place] [id number] [place] [address] 03960- 1241 October, [place] [id number] [place] [address] 64186- 9125 October, [facility] [place] [address] [address] Sep, Acute deep vein thrombosis (DVT) of proximal vein of left lower extremity I82.4Y2 [facility] [place] [address] [id number] [address] 1360 Sep, Mood disorder F39 and Dementia associated with other underlying disease without behavioral disturbance F02.80 [facility] [place] [id number] [address] 2542 Sep, Mood disorder F39 and Acute deep vein thrombosis (DVT) of proximal vein of left lower extremity I82.4Y2 [facility] [place] [address] [address] Sep, [facility] [address] [place] [id number] Sep, History of DVT (deep vein thrombosis) Z86.718 and Dementia F03.90 [facility] [place] [id number] [address] Sep, Mood disorder F39 and Dementia without behavioral disturbance, unspecified dementia type F03.90 [facility] [place] [address] [address] 1838 Aug, [facility] [place] [id number] [address] 5727 Aug, [facility] [id number] [place] [id number] Aug, [facility] [place] [address] [address] 0734 Aug, [facility] [place] [id number] [place] [address] 62302- 0209 Aug, Acute deep vein thrombosis (DVT) of proximal vein of left lower extremity I82.4Y2 [facility] [address] [place] [id number] Aug, Left leg swelling M79.89 [facility] [place] [id number] [place] [address] 59972- 2071 Aug, Mood disorder F39 and Dementia without behavioral disturbance, unspecified dementia type F03.90 [facility] [place] [id number] [place] [address] 61786- 4333 Jul, [place] [address] [address] 2827 Jul, Dementia without behavioral disturbance, unspecified dementia type F03.90 and Mood disorder F39 [facility] [address] [place] [id number] Jul, Encounter for examination for admission to senior living Z02.2 ; Rectal bleed K62.5 ; Dementia without behavioral disturbance, unspecified dementia type F03.90 ; Hypertension, benign I10 ; Edema R60.9 and Major depression F32.9 [facility] [address] [id number] Jul, [place] [id number] [place] [address] 85296- 5930 Apr, Dementia without behavioral disturbance, unspecified dementia type F03.90 and Mood disorder F39 [facility] [place] [id number] [place] [address] 01410- 3172 Apr, [place] [id number] [place] [address] 47132- 5140 Feb, Hypertension, benign I10 [facility] [place] [id number] [place] [address] 37834- 0021 Dec, Major depression F32.9 ; Anxiety disorder, unspecified F41.9 ; Cognitive dysfunction F09 and Dementia without behavioral disturbance, unspecified dementia type F03.90 [facility] [place] [id number] [place] [address] 98778- 5749 October, Hypertension, benign I10 [place] [id number] [place] [address] 51866- 2036 Sep, Major depression F32.9 ; Anxiety disorder, unspecified F41.9 and Cognitive dysfunction F09 [place] [id number] [place] [address] 74390- 6420 Apr, Major depression F32.9 and Cognitive dysfunction F09 [place] [id number] [place] [address] 31491- 8268 Jan, Anxiety disorder, unspecified F41.9 ; Major depression F32.9 and Cognitive dysfunction F09 [place] [id number] [place] [address] 44265- 0675 Jan, [place] [id number] [place] [address] 99716- 4607 Dec, [place] [id number] [place] [address] 53542- 8078 Dec, [place] [id number] [place] [address] 79647- 3212 Nov, Anxiety disorder, unspecified F41.9 ; Major depression F32.9 and Cognitive dysfunction F09 [place] [id number] [place] [address] 74311- 0570 October, Dementia without behavioral disturbance, unspecified dementia type F03.90 [place] [id number] [place] [address] 71314- 4825 Sep, Cognitive dysfunction F09 and Edema R60.9 [place] [id number] [place] [address] 94269- 3835 Sep, Cognitive dysfunction F09 and Edema R60.9 [place] [id number] [place] [address] 74888- 9546 Aug, Self-care deficit for medication administration R41.89 ; Self-care deficit in patient living alone R46.89 and Cognitive dysfunction F09 [place] [id number] [place] [address] 13895- 7611 Aug, 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 and Unspecified intracranial injury without loss of consciousness, sequela S06.9X0S [facility] [place] [id number] [place] [address] 87970- 7034 Jul, [facility] [place] [id number] [place] [address] 25591- 9143 Jun, Anxiety disorder, unspecified F41.9 and Major depression F32.9 [facility] [place] [id number] [place] [address] 25971- 3225 Jun, [facility] [place] [id number] [place] [address] 81348- 7070 May, [facility] [place] [id number] [place] [address] 48757- 2990 May, Nausea R11.0 [place] [address] 49488- 9336 Apr, [facility] [place] [id number] [place] [address] 62394- 5528 Mar, Major depression F32.9 [place] [id number] [place] [address] 40880- 4186 Mar, Encounter for immunization Z23 [facility] [place] [id number] [place] [address] 85575- 8001 Mar, Major depression F32.9 and Anxiety disorder, unspecified F41.9 [facility] [place] [id number] [place] [address] 62861- 1491 Dec, Major depression, chronic 296.20 and Anxiety disorder, unspecified 300.00 [facility] [place] [id number] [place] [address] 66731- 5835 October, Hypertension 401.9 [facility] [place] [id number] [place] [address] 24316- 6558 Sep, [facility] [place] [address] 83793- 6961 Sep, [facility] [place] [facility] [address] [id number] [place] [address]- 5760 Jul, [facility] [place] [facility] [address] [id number] [place] [address]- 4427 Jul, [facility] [place] [facility] [address] [facility] [id number] [place] [address]- 7451 Jul, [facility] [place] [facility] [address] [id number] [place] [address]- 4601 May, [facility] [place] [facility] [address] [id number] [place] [address]- 8953 May, [facility] [place] [facility] [address] [id number] [place] [address]- 4565 May, [facility] [place] [facility] [address] [facility] [id number] [place] [address]- 3801 May, [facility] [place] [facility] [address] [id number] [place] [address]- 4661 Apr, [facility] [place] [facility] [address] [facility] [id number] [place] [address]- 3813 Apr, [facility] [place] [facility] [address] [facility] [id number] [place] [address]- 9773 Feb, [facility] [place] [facility] [address] [id number] [place] [address]- 2279 Feb, [facility] [place] [facility] [address] [id number] [place] [address]- 4581 Jan, [facility] [place] [facility] [address] [id number] [place] [address]- 5893 Jan, [facility] [place] [facility] [address] [facility] [id number] [place] [address]- 0624 Jan, [facility] [place] [facility] [address] [facility] [id number] [place] [address]- 3462 Jan, [facility] [place] [facility] [address] [id number] [place] [address]- 3130 Dec, [facility] [place] [facility] [address] [id number] [place] [address]- 8541 Dec, [facility] [place] [facility] [address] [id number] [place] [address]- 6240 Nov, [facility] [place] [facility] [address] [id number] [place] [address]- 2536 Nov, [facility] [place] [facility] [address] [id number] [place] [address]- 7370 Nov, [facility] [place] [facility] [address] [id number] [place] [address]- 7824 Nov, [facility] [place] [facility] [address] [id number] [place] [address]- 8747 October, [facility] [place] [facility] [address] [id number] [place] [address]- 0560 October, [facility] [place] [facility] [address] [id number] [place] [address]- 8345 Sep, [facility] [place] [facility] [address] [id number] [place] [address]- 9469 Sep, [facility] [place] [facility] [address] [id number] [place] [address]- 3599 Sep, [facility] [place] [facility] [address] [id number] [place] [address]- 1188 Sep, [facility] [place] [facility] [address] [id number] [place] [address]- 4878 Sep, [facility] [place] [facility] [address] [id number] [place] [address]- 8985 Sep, [facility] [place] [facility] [address] [id number] [place] [address]- 3141 Aug, [facility] [place] [facility] [address] [id number] [place] [address]- 4643 Aug, [facility] [place] [facility] [address] [id number] [place] [address]- 9844 Jul, [facility] [place] [facility] [address] [id number] [place] [address]- 5376 Jul, [facility] [place] [facility] [address] [facility] [id number] [place] 8476 May, [facility] [place] [facility] [address] [id number] [place] 6865 May, [facility] [place] [facility] [address] [id number] [place] [address]- 3866 May, [facility] [place] [facility] [address] [id number] [place] [address]- 7639 May, [facility] [place] [facility] [address] [id number] [place] [address]- 7041 May, [facility] [place] [facility] [address] [id number] [place] [address]- 4316 May, [facility] [place] [facility] [address] [id number] [place] [address]- 4775 Apr, [facility] [place] [facility] [address] [id number] [place] [address]- 6945 Apr, [facility] [place] [facility] [address] [id number] [address]- 9156 Apr, [facility] [place] [facility] [address] [id number] [address]- 0781 Apr, [facility] [place] [facility] [address] [id number] [place] 0567 Apr, [facility] [place] [facility] [address] [id number] [address]- 7206 Apr, [facility] [place] [facility] [address] [facility] [id number] [place] [address]- 1387 Feb, [facility] [place] [facility] [address] [id number] [place] [address]- 7660 Feb, [facility] [address] [id number] [place] [address]- 0693 Feb, [facility] [address] [id number] [place] [address]- 2176 Feb, [facility] [address] [id number] [place] [address]- 8986 Jan, [facility] [address] [id number] [place] [address]- 5821 Dec, [facility] [address] [id number] [place] [address]- 5151 Dec, [facility] [address] [id number] [place] [address]- 8547 Dec, [facility] [address] [id number] [place] [address]- 9655 Dec, [facility] [address] [id number] [place] [address]- 5842 Nov, [facility] [address] [id number] [place] [address]- 1377 Nov, [facility] [address] [id number] [place] 0126 October, [facility] [address] [id number] [place] [address]- 1782 October, [facility] [address] [id number] [place] [address]- 7764 October, [facility] [place] [facility] [address] [id number] [place] [address]- 8406 October, [facility] [place] [facility] [address] [id number] [place] [address]- 2546 Sep, [facility] [address] [id number] [place] [address]- 9052 Aug, [facility] [place] [facility] [address] [id number] [place] [address]- 7652 Aug, [facility] [place] [facility] [address] [id number] [place] [address]- 5412 Aug, [facility] [place] [facility] [address] [id number] [place] [address]- 6626 Aug, [facility] [place] [facility] [address] [id number] [place] [address]- 8358 Jul, [facility] [place] [facility] [address] [id number] [place] [address]- 3424 Jul, [facility] [place] [facility] [address] [id number] [place] [address]- 9844 Jul, [facility] [place] [facility] [address] [id number] [place] [address]- 4257 Jun, [facility] [place] [facility] [address] [id number] [place] [address]- 2326 Jun, [facility] [place] [facility] [address] [id number] [place] [address]- 1648 May, [facility] [place] [facility] [address] [id number] [place] [address]- 9238 May, [facility] [place] [facility] [address] [id number] [address]- 3068 Apr, [facility] [place] [facility] [address] [id number] [place] [address]- 7480 Apr, [facility] [place] [facility] [address] [id number] [place] [address]- 5208 Apr, [facility] [place] [facility] [address] [id number] [place] [address]- 6085 Apr, [facility] [place] [facility] [address] [id number] [address]- 4149 Apr, [facility] [place] [facility] [address] [id number] [place] [address]- 3800 Apr, [facility] [place] [facility] [address] [id number] [place] [address]- 3166 Mar, [facility] [place] [facility] [address] [id number] [place] [address]- 4022 Mar, [facility] [place] [facility] [address] [facility] [id number] [place] [address]- 6486 Mar, [facility] [place] [facility] [address] [id number] [place] [address]- 8890 Mar, [facility] [place] [facility] [address] [facility] [id number] [place] [address], [place] [address]- 6124 Mar, [facility] [place] [facility] [address] [facility] [id number] [place] [address]- 7403 Mar, [facility] [place] [facility] [id number] [place] [address]- 6616 Mar, [facility] [place] [facility] [address] [facility] [id number] [place] [address]- 6399 Feb, [facility] [place] [facility] [id number] [place] [address]- 1602 Feb, [facility] [place] [facility] [id number] [address]- 6214 Jan, [facility] [place] [facility] [address] [facility] [id number] [address]- 6821 Dec, [facility] [place] [facility] [address] [facility] [id number] [place] [address]- 0403 Dec, [facility] [place] [facility] [address] [facility] [id number] [place] [address]- 7820 Nov, [facility] [place] [facility] [address] [facility] [id number] [place] [address]- 3882 Nov, [facility] [place] [facility] [id number] [address]- 5565 Nov, [facility] [place] [facility] [address] [id number] [place] [address]- 5432 October, [facility] [place] [facility] [address] [id number] [place] [address]- 5722 20 Sep, 2011 [facility] [place] [facility] [address] [id number] [place] [address]- 5816 16 Sep, 2011 [facility] [place] [facility] [address] [id number] [place] [address]- 2380 04 Sep, 2011 [facility] [place] [facility] [address] [id number] [place] [address]- 8312 26 Aug, 2011 [facility] [place] [facility] [address] [id number] [place] [address]- 0998 21 Aug, 2011 [facility] [place] [facility] [address] [id number] [place] [address]- 7879 20 Aug, 2011 [facility] [place] [facility] [address] [id number] [place] [address]- 4211 15 Aug, 2011 [facility] [place] [facility] [address] [id number] [place] [address]- 9467 14 Aug, 2011 [facility] [place] [facility] [address] [id number] [place] [address]- 5560 12 Aug, 2011 [facility] [place] [facility] [address] [id number] [place] [address]- 9719 08 Aug, 2011 [facility] [place] [facility] [address] [id number] [place] [address]- 2387 05 Aug, 2011 [facility] [place] [facility] [address] [id number] [place] [address]- 2636 Jul, [facility] [place] [facility] [address] [id number] [place] [address]- 5281 Jul, [facility] [place] [facility] [address] [id number] [place] [address]- 9871 Jul, [facility] [place] [facility] [address] [id number] [address]- 0664 15 Jul, 2011 [facility] [address] [id number] [place] [address]- 9824 Jul, [facility] [address] [id number] [place] [address]- 9911 Jul, [facility] [address] [id number] [place] [address]- 5151 Jun, [facility] [place] [facility] [address] [id number] [place] [address]- 5119 Jun, [facility] [address] [id number] [place] [address]- 7371 Jun, [facility] [address] [id number] [place] 4327 Jun, [facility] [address] [id number] [place] [address]- 7852 May, [facility] [place] [facility] [address] [id number] [place] [address] May, [facility] [address] [id number] [place] [address] May, [facility] [place] [facility] [address] [facility] [id number] [place] [address] May, [facility] [address] [id number] [address] May, [facility] [place] [facility] [address] [id number] [address] 30 Apr, 2011 [facility] [place] [facility] [address] [id number] [place] [address] 14 Apr, 2011 [facility] [place] [facility] [address] [id number] [place] [address] 31 Mar, 2011 [facility] [place] [facility] [address] [id number] [place] [address] 15 Feb, 2011 [facility] [place] [facility] [id number] [address] Feb, [facility] [place] [id number] [address] May, [facility] [place] [address] [facility] [id number] [address] Apr, [facility] [place] [id number] [address] Apr, [facility] [place] [address] [facility] [id number] [place] [address] Apr, [facility] [place] [id number] [address] Apr, [facility] [place] [id number] [address] Apr, [facility] [place] [id number] [address] Apr, [facility] [place] [id number] [address] Mar, [facility] [place] [id number] [address] Mar, [facility] [place] [id number] [address] Sep, IMMUNIZATIONS No Known Immunizations SOCIAL HISTORY Never Assessed REASON FOR VISIT Concerns PLAN OF CARE VITAL SIGNS MEDICATIONS Unknown [...] attempts Hospitalization History Ischemic colitis, dementia, generalized debility-[facility] 07/30/17
--- OUTSIDE RECORDS SUMMARY | 2018-06-23 23:23 | XMS REPORT ---
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 Name Role Phone CARO CAMARA Unavailable PROBLEMS Type Condition ICD9-CM Code QFX45-OP Code Onset Dates Condition Status SNOMED Code Problem Mood disorder F39 Active 92951820 Problem Dementia without behavioral disturbance, unspecified dementia type F03.90 Active 85826856 Problem Hypertension, benign I10 Active 23965684 Problem Cognitive dysfunction F09 Active 988167686 Problem 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 681572207 Problem Anxiety disorder, unspecified F41.9 Active 484631350 Problem Major depression F32.9 Active 986207356 ALLERGIES No Information ENCOUNTERS Encounter Location Date Diagnosis [place] [id number] [place] [address] 13094- 5759 Jan, [place] [address] [place] [id number] [place] [address] 45023- 8061 Nov, [place] [address] [address] Nov, Dementia without behavioral disturbance, unspecified dementia type F03.90 ; Cognitive dysfunction F09 and Major depression F32.9 [facility] [employer] [facility] [address] [place] [address] October, Encounter for examination for admission to assisted Z02.2 ; Tardive dyskinesia G24.01 ; Major depression F32.9 ; Anxiety disorder, unspecified F41.9 ; Cognitive dysfunction F09 and Dementia without behavioral disturbance, unspecified dementia type F03.90 [place] [address] [address] October, [place] [address] [place] [id number] [address] October, [facility] [place] [address] [address] Sep, Acute deep vein thrombosis (DVT) of proximal vein of left lower extremity I82.4Y2 [facility] [place] [address] [address] Sep, Mood disorder F39 and Dementia associated with other underlying disease without behavioral disturbance F02.80 [facility] [place] [address] [address] Sep, Mood disorder F39 and Acute deep vein thrombosis (DVT) of proximal vein of left lower extremity I82.4Y2 [facility] [place] [address] [address] Sep, Via [facility] [address] [place] [id number] Sep, History of DVT (deep vein thrombosis) Z86.718 and Dementia F03.90 [facility] [place] [address] [address] Sep, Mood disorder F39 and Dementia without behavioral disturbance, unspecified dementia type F03.90 [facility] [place] [address] [address] Aug, [facility] [place] [address] [address] Aug, [facility] [id number] [address] Aug, [facility] [place] [address] [address] 4084 Aug, [facility] [place] [address] [address] Aug, Acute deep vein thrombosis (DVT) of proximal vein of left lower extremity I82.4Y2 [facility] [address] [place] [id number] Aug, Left leg swelling M79.89 [facility] [place] [address] [place] [address] [id number] [place] [address] 35145- 3474 Aug, Mood disorder F39 and Dementia without behavioral disturbance, unspecified dementia type F03.90 [facility] [place] [address] [place] [address] [id number] [place] [address] 07904- 4291 Jul, [facility] [place] [address] [address] Jul, Dementia without behavioral disturbance, unspecified dementia type F03.90 and Mood disorder F39 Via [facility] [address] [place] [id number] Jul, Encounter for examination for admission to assisted Z02.2 ; Rectal bleed K62.5 ; Dementia without behavioral disturbance, unspecified dementia type F03.90 ; Hypertension, benign I10 ; Edema R60.9 and Major depression F32.9 [facility] [address] [place] [id number] [place] [address] [id number] Jul, [facility] [place] [address] [place] [address] [id number] [place] [address] 48867- 1059 Apr, Dementia without behavioral disturbance, unspecified dementia type F03.90 and Mood disorder F39 [facility] [place] [id number] [place] [address] 78501- 1967 Apr, [facility] [place] [address] [place] [id number] [place] [address] 04022- 3127 Feb, Hypertension, benign I10 [facility] [place] [address] [place] [address] [id number] [place] [address] 02890- 8282 Dec, Major depression F32.9 ; Anxiety disorder, unspecified F41.9 ; Cognitive dysfunction F09 and Dementia without behavioral disturbance, unspecified dementia type F03.90 [facility] [place] [id number] [place] [address] 55200- 2204 October, Hypertension, benign I10 [facility] [place] [address] [place] [address] [id number] [place] [address] 93493- 9096 Sep, Major depression F32.9 ; Anxiety disorder, unspecified F41.9 and Cognitive dysfunction F09 [place] [address] [place] [id number] [place] [address] 33795- 6490 Apr, Major depression F32.9 and Cognitive dysfunction F09 [place] [address] [place] [id number] [place] [address] 66425- 9500 Jan, Anxiety disorder, unspecified F41.9 ; Major depression F32.9 and Cognitive dysfunction F09 [place] [address] [place] [id number] [place] [address] 97314- 4522 Jan, [place] [address] [place] [id number] [place] [address] 83899- 6097 Dec, [place] [address] [place] [id number] [place] [address] 31864- 8280 Dec, [place] [address] [place] [id number] [place] [address] 34570- 4028 Nov, Anxiety disorder, unspecified F41.9 ; Major depression F32.9 and Cognitive dysfunction F09 [place] [address] [place] [id number] [place] [address] 53204- 2860 October, Dementia without behavioral disturbance, unspecified dementia type F03.90 [place] [address] [place] [id number] [place] [address] 13801- 8385 Sep, Cognitive dysfunction F09 and Edema R60.9 [place] [address] [place] [id number] [place] [address] 49691- 5044 Sep, Cognitive dysfunction F09 and Edema R60.9 [place] [address] [place] [id number] [place] [address] 27958- 1964 Aug, Self-care deficit for medication administration R41.89 ; Self-care deficit in patient living alone R46.89 and Cognitive dysfunction F09 [place] [address] [place] [id number] [place] [address] 55791- 2202 Aug, 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 and Unspecified intracranial injury without loss of consciousness, sequela S06.9X0S [facility] [place] [address] [place] [address] [id number] [place] [address] 76594- 3195 Jul, [facility] [place] [address] [place] [id number] [place] [address] 89178- 3247 Jun, Anxiety disorder, unspecified F41.9 and Major depression F32.9 [facility] [place] [address] 13156- 0319 Jun, [facility] [place] [address] 71735- 2334 May, [facility] [place] [address] 08910- 8983 May, Nausea R11.0 [facility] [place] [address] 91261- 7711 Apr, [facility] [place] [address] 04815- 5742 Mar, Major depression F32.9 [facility] [place] [address] [place] [id number] [place] [address] 34917- 4817 Mar, Encounter for immunization Z23 [facility] [place] [address] [place] [id number] [place] [address] 23061- 5292 Mar, Major depression F32.9 and Anxiety disorder, unspecified F41.9 [facility] [place] [address] [place] [id number] [place] [address] 46506- 2822 Dec, Major depression, chronic 296.20 and Anxiety disorder, unspecified 300.00 [facility] [place] [address] [place] [id number] [place] [address] 32716- 2592 October, Hypertension 401.9 [facility] [place] [address] [place] [id number] [place] [address] 04082- 6845 Sep, [facility] [place] [address] 48860- 5021 Sep, [facility] [place] [facility] [address] [id number] [place] [address]- 6355 18 Jul, 2014 [facility] [place] [facility] [address] [id number] [place] [address]- 9966 Jul, [facility] [place] [facility] [address] [id number] [place] [address]- 2426 Jul, [facility] [place] [facility] [address] [id number] [place] [address]- 1265 May, [facility] [place] [facility] [address] [id number] [place] [address]- 6152 May, [facility] [place] [facility] [address] [id number] [place] [address]- 0651 May, [facility] [place] [facility] [address] [id number] [place] [address]- 9082 May, [facility] [place] [facility] [address] [id number] [place] [address]- 1605 Apr, [facility] [place] [facility] [address] [id number] [place] [address]- 0735 Apr, [facility] [place] [facility] [address] [facility] [id number] [place] [address]- 3943 Feb, [facility] [place] [facility] [address] [id number] [place] [address]- 3351 Feb, [facility] [place] [facility] [address] [id number] [place] [address]- 4328 Jan, [facility] [place] [facility] [address] [id number] [place] [address]- 5230 Jan, [facility] [place] [facility] [address] [id number] [place] [address]- 1973 Jan, [facility] [place] [facility] [address] [id number] [place] [address]- 6790 Jan, [facility] [place] [facility] [address] [id number] [place] [address]- 1731 Dec, [facility] [place] [facility] [address] [id number] [place] [address]- 8105 Dec, [facility] [place] [facility] [address] [id number] [place] [address]- 0429 Nov, [facility] [place] [facility] [address] [id number] [place] [address]- 7164 Nov, [facility] [place] [facility] [address] [id number] [place] [address]- 8019 Nov, [facility] [place] [facility] [address] [id number] [place] [address]- 8273 Nov, [facility] [place] [facility] [address] [id number] [place] [address]- 4815 October, [facility] [place] [facility] [address] [id number] [place] [address]- 0247 October, [facility] [place] [facility] [address] [id number] [place] [address]- 9404 Sep, [facility] [place] [facility] [address] [id number] [place] [address]- 0444 Sep, [facility] [place] [facility] [address] [id number] [place] [address]- 0485 Sep, [facility] [place] [facility] [address] [id number] [place] [address]- 1594 Sep, [facility] [place] [facility] [address] [id number] [place] [address]- 7102 Sep, [facility] [place] [facility] [address] [id number] [place] [address]- 1134 Sep, [facility] [place] [facility] [address] [id number] [place] [address]- 4420 Aug, [facility] [place] [facility] [address] [id number] [place] [address]- 0893 Aug, [facility] [address] [id number] [place] [address]- 6548 Jul, [facility] [place] [facility] [address] [id number] [place] 6436 Jul, [facility] [address] [id number] [place] [address]- 6587 May, [facility] [place] [facility] [address] [id number] [place] [address]- 8976 May, [facility] [address] [id number] [place] [address]- 1608 May, [facility] [place] [facility] [address] [id number] [place] [address]- 9650 May, [facility] [address] [id number] [place] [address]- 2690 May, [facility] [place] [facility] [address] [id number] [place] [address]- 6240 May, [facility] [address] [id number] [place] [address]- 5245 Apr, [facility] [place] [facility] [address] [id number] [place] [address]- 7066 Apr, [facility] [place] [facility] [address] [id number] [address]- 2201 Apr, [facility] [place] [facility] [address] [id number] [place] [address]- 5985 Apr, [facility] [place] [facility] [address] [id number] [place] [address]- 3536 Apr, [facility] [place] [facility] [address] [id number] [place] [address]- 4695 Apr, [facility] [place] [facility] [address] [id number] [place] [address]- 7047 Feb, [facility] [place] [facility] [address] [id number] [place] [address]- 2546 Feb, [facility] [address] [id number] [place] [address]- 6726 Feb, [facility] [address] [id number] [place] [address]- 2546 Feb, [facility] [address] [id number] [place] [address] 2546 Jan, [facility] [address] [id number] [place] [address]- 9798 Dec, [facility] [address] [id number] [place] [address]- 8003 Dec, [facility] [address] [id number] [place] [address]- 7976 Dec, [facility] [address] [id number] [place] [address]- 6560 Dec, [facility] [address] [id number] [place] [address]- 4300 Nov, [facility] [address] [id number] [place] [address]- 3326 Nov, [facility] [address] [id number] [place] [address]- 4700 October, [facility] [address] [id number] [place] [address]- 2546 October, [facility] [address] [id number] [place] [address]- 2546 October, [facility] [address] [id number] [place] [address]- 2546 October, [facility] [address] [id number] [place] [address]- 2546 Sep, [facility] [address] [id number] [place] [address]- 1605 Aug, [facility] [address] [id number] [place] [address]- 3706 Aug, [facility] [place] [facility] [address] [id number] [place] [address]- 3360 Aug, [facility] [place] [facility] [address] [id number] [place] [address]- 0044 06 Aug, 2012 [facility] [place] [facility] [address] [id number] [place] [address]- 7231 Jul, [facility] [place] [facility] [address] [id number] [place] [address]- 9800 Jul, [facility] [place] [facility] [address] [id number] [place] [address]- 2827 Jul, [facility] [place] [facility] [address] [id number] [place] [address]- 5702 Jun, [facility] [place] [facility] [address] [id number] [place] [address]- 0534 Jun, [facility] [place] [facility] [address] [id number] [place] [address]- 9757 May, [facility] [place] [facility] [address] [id number] [place] [address]- 2551 May, [facility] [place] [facility] [address] [id number] [place] [address]- 9300 Apr, [facility] [place] [facility] [address] [id number] [place] [address]- 2810 Apr, [facility] [place] [facility] [address] [id number] [place] [address]- 2967 Apr, [facility] [place] [facility] [address] [id number] [place] [address]- 7665 Apr, [facility] [place] [facility] [address] [id number] [place] [address]- 6836 Apr, [facility] [place] [facility] [address] [id number] [place] [address]- 3924 Apr, [facility] [place] [facility] [address] [id number] [place] [address]- 2893 Mar, [facility] [place] [facility] [address] [id number] [place] [address]- 0696 Mar, [facility] [place] [facility] [address] [id number] [place] [address]- 2674 Mar, [facility] [place] [facility] [address] [id number] [place] [address]- 8732 Mar, [facility] [place] [facility] [address] [id number] [place] [address]- 3841 Mar, [facility] [place] [facility] [address] [id number] [place] [address]- 3285 Mar, [facility] [place] [facility] [address] [id number] [place] [address]- 7457 Mar, [facility] [place] [facility] [address] [id number] [place] [address]- 9484 Feb, [facility] [place] [facility] [address] [id number] [place] [address]- 2795 Feb, [facility] [place] [facility] [address] [facility] [id number] [place] [address]- 9094 Jan, [facility] [place] [facility] [address] [id number] [place] [address]- 9636 Dec, [facility] [place] [facility] [address] [id number] [place] [address]- 9905 Dec, [facility] [place] [facility] [address] [id number] [place] [address]- 7199 Nov, [facility] [place] [facility] [address] [id number] [place] [address]- 7937 Nov, [facility] [place] [facility] [address] [id number] [place] [address]- 0756 Nov, [facility] [place] [facility] [address] [id number] [place] [address]- 5342 October, [facility] [place] [facility] [address] [id number] [place] [address]- 1514 Sep, [facility] [place] [facility] [address] [id number] [place] [address]- 8156 16 Sep, 2011 [facility] [place] [facility] [address] [id number] [place] [address]- 7318 04 Sep, 2011 [facility] [address] [id number] [place] [address]- 0496 26 Aug, 2011 [facility] [place] [facility] [address] [id number] [place] [address]- 9423 Aug, [facility] [address] [id number] [place] [address]- 3102 Aug, [facility] [address] [id number] [place] [address]- 5271 15 Aug, 2011 [facility] [place] [facility] [address] [id number] [place] [address]- 2082 14 Aug, 2011 [facility] [place] [facility] [address] [id number] [place] [address]- 5153 12 Aug, 2011 [facility] [place] [facility] [address] [id number] [place] [address]- 7762 08 Aug, 2011 [facility] [place] [facility] [address] [id number] [place] [address]- 6974 05 Aug, 2011 [facility] [place] [facility] [address] [id number] [place] [address]- 0351 Jul, [facility] [place] [facility] [address] [id number] [place] [address]- 1142 Jul, [facility] [place] [facility] [address] [id number] [place] [address]- 5478 Jul, [facility] [place] [facility] [address] [id number] [address]- 7175 15 Jul, 2011 [facility] [address] [id number] [place] [address] 06 Jul, 2011 [facility] [place] [facility] [address] [id number] [place] [address] Jul, [facility] [address] [id number] [place] [address] Jun, [facility] [place] [facility] [address] [id number] [place] [address] Jun, [facility] [address] [id number] [place] [address] Jun, [facility] [address] [id number] [place] [address] Jun, [facility] [address] [id number] [place] [address] 29 May, 2011 [facility] [address] [id number] [place] [address] May, [facility] [address] [id number] [place] [address] May, [facility] [address] [facility] [id number] [place] [address] May, [facility] [address] [id number] [place] [address] May, [facility] [place] [facility] [address] [id number] [place] [address] 30 Apr, 2011 [facility] [place] [facility] [address] [id number] [place] [address] 14 Apr, 2011 [facility] [place] [facility] [address] [facility] [id number] [place] [address] [address] 31 Mar, 2011 [facility] [place] [facility] [address] [facility] [id number] [place] [address] 15 Feb, 2011 [facility] [place] [facility] [id number] [address] Feb, [facility] [place] [id number] [address] May, [facility] [place] [address] [facility] [id number] [place] [address] Apr, [facility] [place] [id number] [address] Apr, [facility] [place] [address] [facility] [id number] [place] [address] Apr, [facility] [place], [facility] [id number] [place] [address] Apr, [facility] [place], [facility] [id number] [address] Apr, [facility] [place] [id number] [address] Apr, [facility] [place] [id number] [address] Mar, [facility] [place], [facility] [id number] [address] Mar, [facility] [place], [facility] [id number] [address] Sep, IMMUNIZATIONS No Known Immunizations SOCIAL HISTORY Never Assessed REASON FOR VISIT add tylenol PLAN OF CARE VITAL SIGNS MEDICATIONS Medication Instructions Dosage Frequency Start Date End Date Duration Status Tylenol 325 MG Orally every 4 hrs 2 tablets as needed 4h Aug, Active RESULTS No Results PROCEDURES No Known [...]
--- OUTSIDE RECORDS SUMMARY | 2018-06-23 23:23 | XMS REPORT ---
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 Name Role Phone MONI MORENA Unavailable PROBLEMS Type Condition ICD9-CM Code QCE36-US Code Onset Dates Condition Status SNOMED Code Problem Mood disorder F39 Active 78646168 Problem Dementia without behavioral disturbance, unspecified dementia type F03.90 Active 17016203 Problem Hypertension, benign I10 Active 06086698 Problem Cognitive dysfunction F09 Active 278498376 Problem 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 765957431 Problem Anxiety disorder, unspecified F41.9 Active 236682593 Problem Major depression F32.9 Active [id number] ALLERGIES No Information ENCOUNTERS Encounter Location Date Diagnosis [place] [id number] [place] [address] 45249- 7900 Jan, [place] [address] [place] [id number] [place] [address] 68309- 8664 Nov, [place] [address] [place] [id number] [place] [address] 09133- 1872 Nov, Dementia without behavioral disturbance, unspecified dementia type F03.90 ; Cognitive dysfunction F09 and Major depression F32.9 [facility] [address] [place] [address] October, Encounter for examination for admission to usp Z02.2 ; Tardive dyskinesia G24.01 ; Major depression F32.9 ; Anxiety disorder, unspecified F41.9 ; Cognitive dysfunction F09 and Dementia without behavioral disturbance, unspecified dementia type F03.90 [place] [address] [place] [id number] [place] [address] 84743- 7187 October, [place] [address] [place] [id number] [place] [address] 47349- 6738 October, [facility] [address] [address] Sep, Acute deep vein thrombosis (DVT) of proximal vein of left lower extremity I82.4Y2 [facility] [id number] [address] 0456 Sep, Mood disorder F39 and Dementia associated with other underlying disease without behavioral disturbance F02.80 [facility] [address] [address] 1357 Sep, Mood disorder F39 and Acute deep vein thrombosis (DVT) of proximal vein of left lower extremity I82.4Y2 [facility] [id number] [place] [address] 90022- 0701 Sep, Via [employer] [facility] [address] [place] [id number] Sep, History of DVT (deep vein thrombosis) Z86.718 and Dementia F03.90 [facility] [address] [address] Sep, Mood disorder F39 and Dementia without behavioral disturbance, unspecified dementia type F03.90 [facility] [address] [address] 0414 Aug, [facility] [address] [address] 3284 Aug, [facility] [address] [place] [id number] [place] [address] [id number] Aug, [facility] [id number] [address] 3230 Aug, [facility] [id number] [place] [address] 42779- 4280 Aug, Acute deep vein thrombosis (DVT) of proximal vein of left lower extremity I82.4Y2 Via [facility] [address] [place] [id number] 06 Mar, 2018 Left leg swelling M79.89 [facility] [address] [place] [address] [id number] [place] [address] 91462- 1723 Aug, Mood disorder F39 and Dementia without behavioral disturbance, unspecified dementia type F03.90 [facility] [address] [id number] [place] [address] 40064- 1822 Jul, [place] [address] [place] [id number] [place] [address] 57629- 4195 Jul, Dementia without behavioral disturbance, unspecified dementia type F03.90 and Mood disorder F39 Via [facility] [address] [place] [id number] Jul, Encounter for examination for admission to usp Z02.2 ; Rectal bleed K62.5 ; Dementia without behavioral disturbance, unspecified dementia type F03.90 ; Hypertension, benign I10 ; Edema R60.9 and Major depression F32.9 [facility] [address] [place] [id number] [place] [address] [id number] Jul, [place] [address] [place] [id number] [place] [address] 00038- 1383 Apr, Dementia without behavioral disturbance, unspecified dementia type F03.90 and Mood disorder F39 [facility] [address] [place] [id number] [place] [address] 71773- 0009 Apr, [place] [address] [place] [address] [id number] [place] [address] 11725- 4450 Feb, Hypertension, benign I10 [facility] [address] [place] [id number] [place] [address] 60114- 4188 Dec, Major depression F32.9 ; Anxiety disorder, unspecified F41.9 ; Cognitive dysfunction F09 and Dementia without behavioral disturbance, unspecified dementia type F03.90 [facility] [address] [place] [id number] [place] [address] 10923- 5160 October, Hypertension, benign I10 [place] [address] [place] [id number] [place] [address] 75033- 3273 Sep, Major depression F32.9 ; Anxiety disorder, unspecified F41.9 and Cognitive dysfunction F09 [facility] [address] [place] [id number] [place] [address] 38614- 0172 Apr, Major depression F32.9 and Cognitive dysfunction F09 [facility] [address] [place] [id number] [place] [address] 68026- 5062 Jan, Anxiety disorder, unspecified F41.9 ; Major depression F32.9 and Cognitive dysfunction F09 [facility] [address] [place] [id number] [place] [address] 15820- 0183 Jan, [place] [address] [place] [id number] [place] [address] 72078- 9162 Dec, [place] [address] [place] [id number] [place] [address] 82594- 6410 Dec, [place] [address] [place] [id number] [place] [address] 91991- 7372 Nov, Anxiety disorder, unspecified F41.9 ; Major depression F32.9 and Cognitive dysfunction F09 [place] [address] [place] [id number] [place] [address] 51461- 4410 October, Dementia without behavioral disturbance, unspecified dementia type F03.90 [place] [address] [place] [id number] [place] [address] 36446- 4451 Sep, Cognitive dysfunction F09 and Edema R60.9 [place] [address] [place] [id number] [place] [address] 35394- 8470 Sep, Cognitive dysfunction F09 and Edema R60.9 [place] [address] [place] [id number] [place] [address] 01687- 0037 Aug, Self-care deficit for medication administration R41.89 ; Self-care deficit in patient living alone R46.89 and Cognitive dysfunction F09 [place] [id number] [place] [address] 96764- 3460 Aug, 2016 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 and Unspecified intracranial injury without loss of consciousness, sequela S06.9X0S [facility] [address] [place] [id number] [place] [address] 35754- 4088 Jul, [facility] [address] [place] [id number] [place] [address] 05012- 5250 Jun, Anxiety disorder, unspecified F41.9 and Major depression F32.9 [facility] [address] 26660- 7899 Jun, [facility] [address] 76706- 3879 May, [facility] [address] 52640- 5314 May, Nausea R11.0 [facility] [address] 65213- 6887 Apr, [facility] [address] 42307- 7341 Mar, Major depression F32.9 [facility] [address] 93426- 3918 Mar, Encounter for immunization Z23 [facility] [address] [place] [id number] [place] [address] 76941- 8140 Mar, Major depression F32.9 and Anxiety disorder, unspecified F41.9 [facility] [address] [place] [id number] [place] [address] 17185- 2102 Dec, Major depression, chronic 296.20 and Anxiety disorder, unspecified 300.00 [facility] [address] 66856- 2304 October, Hypertension 401.9 [facility] [address] [place] [id number] [place] [address] 22305- 6416 14 Sep, 2014 [facility] [address] 52702- 6316 Sep, [facility] [place] [facility] [address] [id number] [place] [address]- 7772 Jul, [facility] [place] [facility] [address] [id number] [place] [address]- 1443 Jul, [facility] [place] [facility] [address] [facility] [id number] [place] [address]- 3106 Jul, [facility] [place] [facility] [address] [id number] [place] [address]- 8642 May, [facility] [place] [facility] [address] [id number] [place] [address]- 8060 May, [facility] [place] [facility] [address] [id number] [place] [address]- 7926 May, [facility] [place] [facility] [address] [id number] [place] [address]- 0026 May, [facility] [place] [facility] [address] [id number] [place] [address]- 6451 Apr, [facility] [place] [facility] [address] [id number] [place] [address]- 9744 Apr, [facility] [place] [facility] [address] [id number] [place] [address]- 1184 Feb, [facility] [place] [facility] [address] [id number] [place] [address]- 3546 Feb, [facility] [place] [facility] [address] [id number] [place] [address]- 6322 Jan, [facility] [place] [facility] [address] [id number] [place] [address]- 5792 Jan, [facility] [place] [facility] [address] [facility] [id number] [place] [address]- 0659 Jan, [facility] [place] [facility] [address] [facility] [id number] [place] [address]- 4000 Jan, [facility] [place] [facility] [address] [id number] [place] [address]- 5263 Dec, [facility] [address] [id number] [place] [address]- 2829 Dec, [facility] [place] [facility] [address] [id number] [place] [address]- 0043 Nov, [facility] [place] [facility] [address] [id number] [place] [address]- 8005 Nov, [facility] [place] [facility] [address] [id number] [place] [address]- 1244 Nov, [facility] [place] [facility] [address] [id number] [place] [address]- 1899 Nov, [facility] [address] [id number] [place] [address]- 1754 October, [facility] [place] [facility] [address] [id number] [place] [address]- 9469 October, [facility] [address] [id number] [place] [address]- 8522 Sep, [facility] [place] [facility] [address] [id number] [place] [address]- 4463 Sep, [facility] [address] [id number] [place] [address]- 7059 Sep, [facility] [place] [facility] [address] [id number] [place] [address]- 2838 Sep, [facility] [place] [facility] [address] [id number] [place] [address]- 4111 Sep, [facility] [place] [facility] [address] [id number] [place] [address]- 0998 Sep, [facility] [place] [facility] [address] [id number] [place] [address]- 4663 Aug, [facility] [place] [facility] [address] [id number] [place] [address]- 7189 Aug, [facility] [address] [id number] [place] [address]- 4615 Jul, [facility] [place] [facility] [address] [id number] [place] [address]- 0476 Jul, [facility] [place] [facility] [address] [id number] [place] [address]- 8586 May, [facility] [place] [facility] [address] [id number] [place] [address]- 9306 May, [facility] [place] [facility] [address] [id number] [place] [address]- 4656 May, [facility] [place] [facility] [address] [id number] [place] [address]- 6846 May, [facility] [place] [facility] [address] [id number] [place] [address]- 2976 May, [facility] [place] [facility] [address] [id number] [place] [address]- 8016 May, [facility] [place] [facility] [address] [id number] [place] [address]- 8332 Apr, [facility] [place] [facility] [address] [id number] [place] [address]- 7070 Apr, [facility] [place] [facility] [address] [id number] [address]- 0075 Apr, [facility] [place] [facility] [address] [id number] [address]- 4678 Apr, [facility] [place] [facility] [address] [id number] [place] [address]- 1066 Apr, [facility] [place] [facility] [address] [id number] [place] 9366 Apr, [facility] [place] [facility] [address] [id number] [place] [address]- 9891 Feb, [facility] [place] [facility] [address] [id number] [place] [address]- 9503 Feb, [facility] [address] [id number] [place] [address]- 6568 Feb, [facility] [address] [id number] [place] [address]- 2116 Feb, [facility] [address] [id number] [place] [address]- 9812 Jan, [facility] [address] [id number] [place] [address]- 6096 Dec, [facility] [address] [id number] [place] [address]- 4949 Dec, [facility] [address] [id number] [place] [address]- 7268 Dec, [facility] [address] [id number] [place] [address]- 0982 Dec, [facility] [address] [id number] [place] [address]- 7369 Nov, [facility] [address] [id number] [place] [address]- 1167 Nov, [facility] [address] [id number] [place] [address]- 6433 October, [facility] [address] [id number] [place] [address]- 7528 October, [facility] [address] [id number] [place] [address]- 2567 October, [facility] [address] [id number] [place] [address]- 2772 October, [facility] [address] [id number] [place] [address]- 9168 Sep, [facility] [address] [id number] [place] [address]- 6793 Aug, [facility] [address] [id number] [place] [address]- 9164 Aug, [facility] [place] [facility] [address] [id number] [place] [address]- 0241 15 Aug, 2012 [facility] [place] [facility] [address] [id number] [place] [address]- 4409 06 Aug, 2012 [facility] [place] [facility] [address] [id number] [place] [address]- 3361 Jul, [facility] [place] [facility] [address] [id number] [place] [address]- 7960 Jul, [facility] [place] [facility] [address] [id number] [place] [address]- 1091 Jul, [facility] [place] [facility] [address] [id number] [place] [address]- 4992 Jun, [facility] [place] [facility] [address] [id number] [place] [address]- 7917 Jun, [facility] [place] [facility] [address] [id number] [place] [address]- 5507 May, [facility] [place] [facility] [address] [id number] [place] [address]- 9052 May, [facility] [place] [facility] [address] [id number] [place] [address]- 4082 Apr, [facility] [place] [facility] [address] [id number] [place] [address]- 2027 Apr, [facility] [place] [facility] [address] [id number] [place] [address]- 2650 Apr, [facility] [place] [facility] [address] [id number] [place] [address]- 8083 Apr, [facility] [place] [facility] [address] [id number] [place] [address]- 1081 Apr, [facility] [place] [facility] [address] [id number] [place] [address]- 5861 Apr, [facility] [place] [facility] [address] [id number] [place] 3087 Mar, [facility] [place] [facility] [address] [id number] [place] [address]- 8036 Mar, [facility] [place] [facility] [address] [id number] [place] [address]- 9247 Mar, [facility] [place] [facility] [address] [id number] [place] [address]- 5498 Mar, [facility] [place] [facility] [address] [id number] [place] 3710 Mar, [facility] [place] [facility] [address] [id number] [place] 6740 Mar, [facility] [place] [facility] [address] [id number] [place] [address]- 2448 Mar, [facility] [place] [facility] [address] [id number] [place] [address]- 6872 Feb, [facility] [place] [facility] [address] [id number] [place] 7706 Feb, [facility] [place] [facility] [address] [id number] [place] [address]- 4719 Jan, [facility] [place] [facility] [address] [id number] [place] [address]- 4462 Dec, [facility] [place] [facility] [address] [id number] [address]- 4267 Dec, [facility] [place] [facility] [address] [id number] [place] [address]- 8244 Nov, [facility] [place] [facility] [address] [id number] [place] [address]- 0741 Nov, [facility] [place] [facility] [address] [id number] [place] [address]- 4714 Nov, [facility] [place] [facility] [address] [id number] [place] [address]- 7883 October, [facility] [address] [id number] [place] [address]- 8307 20 Sep, 2011 [facility] [place] [facility] [address] [id number] [place] [address]- 5846 16 Sep, 2011 [facility] [address] [id number] [place] [address]- 4186 04 Sep, 2011 [facility] [address] [id number] [place] [address]- 7721 26 Aug, 2011 [facility] [address] [id number] [place] [address]- 4489 21 Aug, 2011 [facility] [address] [id number] [place] [address]- 7128 20 Aug, 2011 [facility] [address] [id number] [place] [address]- 3441 15 Aug, 2011 [facility] [address] [id number] [place] [address]- 5846 14 Aug, 2011 [facility] [address] [id number] [place] [address]- 7297 12 Aug, 2011 [facility] [address] [id number] [place] [address]- 1833 08 Aug, 2011 [facility] [address] [id number] [place] [address]- 2136 05 Aug, 2011 [facility] [address] [id number] [place] [address]- 4012 27 Jul, 2011 [facility] [place] [facility] [address] [id number] [place] [address]- 4521 22 Jul, 2011 [facility] [place] [facility] [address] [id number] [place] [address]- 2206 20 Jul, 2011 [facility] [place] [facility] [address] [id number] [place] [address]- 2776 15 Jul, 2011 [facility] [place] [facility] [address] [id number] [place] [address]- 4603 Jul, [facility] [place] [facility] [address] [id number] [place] [address]- 8726 Jul, [facility] [place] [facility] [address] [id number] [place] [address]- 2401 Jun, [facility] [place] [facility] [address] [id number] [place] [address]- 9498 Jun, [facility] [place] [facility] [address] [id number] [place] [address]- 2473 Jun, [facility] [place] [facility] [address] [id number] [place] [address]- 7606 Jun, [facility] [place] [facility] [address] [id number] [place] [address]- 5041 May, [facility] [place] [facility] [address] [id number] [place] [address]- 0316 May, [facility] [place] [facility] [address] [id number] [place] [address] May, [facility] [place] [facility] [address] [id number] [place] [address] May, [facility] [place] [facility] [address] [id number] [place] [address] May, [facility] [place] [facility] [address] [id number] [address] 30 Apr, 2011 [facility] [place] [facility] [address] [id number] [place] [address] 14 Apr, 2011 [facility] [place] [facility] [address] [id number] [place] [address] 31 Mar, 2011 [facility] [place] [facility] [address] [id number] [place] [address] 15 Feb, 2011 [facility] [place] [facility] [address] [address] Feb, [facility] [address] [address] May, [facility] [address] [facility] [id number] [address] Apr, [facility] [address] [address] Apr, [facility] [address] [address] Apr, [facility] [address] [address] Apr, [facility] [address] [address] Apr, [facility] [address] [address] Apr, [facility] [address] [address] Mar, [facility] [address] [address] Mar, [facility] [id number] [address] Sep, IMMUNIZATIONS No Known Immunizations SOCIAL HISTORY Never Assessed REASON FOR VISIT Requests return call PLAN OF CARE VITAL SIGNS MEDICATIONS [...] attempts Hospitalization History Ischemic colitis, dementia, generalized debility-[facility] 07/30/17
--- OUTSIDE RECORDS SUMMARY | 2018-06-23 23:24 | XMS REPORT ---
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 Name Role Phone SAADBRYCE WHIT Unavailable PROBLEMS Type Condition ICD9-CM Code PHW74-NP Code Onset Dates Condition Status SNOMED Code Problem Mood disorder F39 Active 69972207 Problem Dementia without behavioral disturbance, unspecified dementia type F03.90 Active 85160356 Problem Hypertension, benign I10 Active 73035403 Problem Cognitive dysfunction F09 Active 201802795 Problem 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 161573284 Problem Anxiety disorder, unspecified F41.9 Active 979035688 Problem Major depression F32.9 Active 274932011 ALLERGIES Substance Reaction Event Type Date Status Stadol hives Drug Allergy Jul, Active Morphine Sulfate hives Drug Allergy Jul, Active Iodinated Contrast Media - Iv Dye Unknown Non Drug Allergy Jul, Active ENCOUNTERS Encounter Location Date Diagnosis [facility] [id number] [place] [address] 51659- 2101 Jan, [facility] [address] [address] 5[address] Nov, [facility] [id number] [place] [address] 48047- 6202 Nov, Dementia without behavioral disturbance, unspecified dementia type F03.90 ; Cognitive dysfunction F09 and Major depression F32.9 [facility] [address] [place] [address] October, Encounter for examination for admission to [facility] Z02.2 ; Tardive dyskinesia G24.01 ; Major depression F32.9 ; Anxiety disorder, unspecified F41.9 ; Cognitive dysfunction F09 and Dementia without behavioral disturbance, unspecified dementia type F03.90 [facility] [address] [address] 0[address] October, [facility] [id number] [place] [address] 91335- 3353 October, [facility] [id number] [place] [address] 42809- 9492 Sep, Acute deep vein thrombosis (DVT) of proximal vein of left lower extremity I82.4Y2 [facility] [id number] [place] [address] 06444- 0061 Sep, Mood disorder F39 and Dementia associated with other underlying disease without behavioral disturbance F02.80 [facility] [id number] [place] [address] 96570- 6438 Sep, Mood disorder F39 and Acute deep vein thrombosis (DVT) of proximal vein of left lower extremity I82.4Y2 [facility] [id number] [place] [address] 75208- 0838 Sep, [facility] [address] [place] [id number] Sep, History of DVT (deep vein thrombosis) Z86.718 and Dementia F03.90 [facility] [id number] [place] [address] 42986- 3620 Sep, Mood disorder F39 and Dementia without behavioral disturbance, unspecified dementia type F03.90 [facility] [id number] [place] [address] 45473- 8739 Aug, [facility] [id number] [place] [address] 21541- 3893 Aug, [facility] [id number] [place] [address] [id number] Aug, [facility] [id number] [place] [address] [id number]- 4299 Aug, [facility] [address] [place] [address] 56442- 9911 Aug, Acute deep vein thrombosis (DVT) of proximal vein of left lower extremity I82.4Y2 [facility] [address] [place] [id number] Aug, Left leg swelling M79.89 [facility] [address] [place] [address] 50604- 8641 Aug, Mood disorder F39 and Dementia without behavioral disturbance, unspecified dementia type F03.90 [facility] [id number] [place] [address] 78479- 9498 Jul, [facility] [id number] [place] [address] 11043- 3206 Jul, Dementia without behavioral disturbance, unspecified dementia type F03.90 and Mood disorder F39 [facility] [address] [place] [id number] Jul, Encounter for examination for admission to [facility] Z02.2 ; Rectal bleed K62.5 ; Dementia without behavioral disturbance, unspecified dementia type F03.90 ; Hypertension, benign I10 ; Edema R60.9 and Major depression F32.9 [facility] [id number] [place] [address] [id number] Jul, [facility] [address] [place] [address] 48488- 3522 Apr, Dementia without behavioral disturbance, unspecified dementia type F03.90 and Mood disorder F39 [facility] [address] [place] [address] 24429- 2076 Apr, [facility] [id number] [place] [address] 45287- 5684 Feb, Hypertension, benign I10 [facility] [id number] [place] [address] 08260- 3109 Dec, Major depression F32.9 ; Anxiety disorder, unspecified F41.9 ; Cognitive dysfunction F09 and Dementia without behavioral disturbance, unspecified dementia type F03.90 [facility] [id number] [place] [address] 60560- 6793 October, Hypertension, benign I10 [facility] [id number] [place] [address] 80713- 7292 Sep, Major depression F32.9 ; Anxiety disorder, unspecified F41.9 and Cognitive dysfunction F09 [facility] [id number] [place] [address] 15390- 3840 Apr, Major depression F32.9 and Cognitive dysfunction F09 [facility] [id number] [place] [address] 18854- 1845 Jan, Anxiety disorder, unspecified F41.9 ; Major depression F32.9 and Cognitive dysfunction F09 [facility] [id number] [place] [address] 59617- 5181 Jan, [facility] [id number] [place] [address] 66589- 0820 Dec, [facility] [id number] [place] [address] 49106- 5933 Dec, [facility] [id number] [place] [address] 60600- 4854 Nov, Anxiety disorder, unspecified F41.9 ; Major depression F32.9 and Cognitive dysfunction F09 [facility] [id number] [place] [address] 89040- 5693 October, Dementia without behavioral disturbance, unspecified dementia type F03.90 [facility] [id number] [place] [address] 97460- 1126 Sep, Cognitive dysfunction F09 and Edema R60.9 [facility] [id number] [place] [address] 31393- 7807 Sep, Cognitive dysfunction F09 and Edema R60.9 [facility] [address] [place] [address] 56636- 5639 Aug, Self-care deficit for medication administration R41.89 ; Self-care deficit in patient living alone R46.89 and Cognitive dysfunction F09 [facility] [facility] [id number] [place] [address] 60223- 2943 Aug, 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 and Unspecified intracranial injury without loss of consciousness, sequela S06.9X0S [facility] [id number] [place] [address] 84550- 3150 Jul, [facility] [address] 07811- 5327 Jun, Anxiety disorder, unspecified F41.9 and Major depression F32.9 [facility] [address] 91109- 4814 Jun, [facility] [id number] [place] [address] 52924- 3950 May, [facility] [address] 67476- 0913 May, Nausea R11.0 [facility] [id number] [place] [address] 37555- 0138 Apr, [facility] [address] 65535- 8936 Mar, Major depression F32.9 [facility] [id number] [place] [address] 79073- 9213 Mar, Encounter for immunization Z23 [place] [facility] [address] 84572- 9626 Mar, Major depression F32.9 and Anxiety disorder, unspecified F41.9 [place] [facility] [address] 67695- 0298 Dec, Major depression, chronic 296.20 and Anxiety disorder, unspecified 300.00 [place] [facility] [id number] [place] [address] 72491- 1538 October, Hypertension 401.9 [facility] [place] [facility] [address] [id number] [place] [address]- 5911 14 Sep, 2014 [facility] [place] [facility] [address] [id number] [place] [address]- 7880 13 Sep, 2014 [facility] [place] [facility] [address] [id number] [place] [address]- 9432 18 Jul, 2014 [facility] [place] [facility] [address] [id number] [place] [address]- 4163 16 Jul, 2014 [facility] [place] [facility] [address] [id number] [place] [address]- 4921 16 Jul, 2014 [facility] [place] [facility] [address] [id number] [place] [address]- 6253 May, [facility] [place] [facility] [address] [id number] [place] [address]- 8517 May, [facility] [place] [facility] [address] [id number] [place] [address]- 1188 May, [facility] [place] [facility] [address] [id number] [place] [address]- 6270 May, [facility] [place] [facility] [address] [id number] [place] [address]- 0657 Apr, [facility] [place] [facility] [address] [id number] [place] [address]- 5949 Apr, [facility] [place] [facility] [address] [id number] [place] [address]- 0900 Feb, [facility] [place] [facility] [address] [id number] [place] [address]- 2779 Feb, [facility] [place] [facility] [address] [id number] [place] [address]- 3836 Jan, [facility] [place] [facility] [address] [id number] [place] [address]- 7666 Jan, [facility] [place] [facility] [address] [id number] [place] [address]- 6508 Jan, [facility] [place] [facility] [address] [id number] [place] [address]- 7642 Jan, [facility] [place] [facility] [address] [id number] [place] [address]- 6854 Dec, [facility] [place] [facility] [address] [id number] [place] [address]- 0893 Dec, [facility] [place] [facility] [address] [id number] [place] [address]- 1121 Nov, [facility] [place] [facility] [address] [id number] [place] [address]- 7395 Nov, [facility] [place] [facility] [address] [id number] [place] [address]- 0997 Nov, [facility] [place] [facility] [address] [id number] [place] [address]- 9435 Nov, [facility] [place] [facility] [address] [id number] [place] [address]- 7756 October, [facility] [place] [facility] [address] [id number] [place] [address]- 9310 October, [facility] [place] [facility] [address] [id number] [place] [address]- 6670 Sep, [facility] [place] [facility] [address] [id number] [place] [address]- 8687 Sep, [facility] [place] [facility] [address] [id number] [place] [address]- 1648 Sep, [facility] [place] [facility] [address] [id number] [place] [address]- 5933 Sep, [facility] [place] [facility] [address] [id number] [place] [address]- 4548 Sep, [facility] [place] [facility] [address] [id number] [place] [address]- 6380 Sep, [facility] [place] [facility] [address] [id number] [place] [address]- 9188 Aug, [facility] [address] [id number] [place] [address]- 2446 Aug, [facility] [address] [id number] [place] [address] 2546 Jul, [facility] [address] [id number] [place] [address]- 4696 Jul, [facility] [address] [id number] [place] [address]- 2945 May, [facility] [address] [id number] [place] [address]- 6156 May, [facility] [address] [id number] [place] [address]- 0066 May, [facility] [address] [id number] [place] [address] 2546 May, [facility] [address] [id number] [place] [address] 2545 May, [facility] [address] [id number] [place] [address]- 1596 May, [facility] [address] [id number] [place] [address]- 3232 Apr, [facility] [address] [id number] [place] [address] 2546 Apr, [facility] [address] [id number] [place] [address] 2546 Apr, [facility] [place] [facility] [address] [id number] [place] [address] 2546 Apr, [facility] [address] [id number] [place] [address] 2546 Apr, [facility] [address] [id number] [place] [address] 2547 Apr, [facility] [address] [id number] [place] [address]- 3884 Feb, [facility] [place] [facility] [address] [id number] [place] [address]- 3487 Feb, [facility] [place] [facility] [address] [id number] [place] [address]- 9731 Feb, [facility] [place] [facility] [address] [id number] [place] [address]- 3296 Feb, [facility] [place] [facility] [address] [id number] [place] [address]- 5208 Jan, [facility] [place] [facility] [address] [id number] [place] [address]- 3922 Dec, [facility] [place] [facility] [address] [id number] [place] [address]- 7158 Dec, [facility] [place] [facility] [address] [id number] [place] [address]- 6377 Dec, [facility] [place] [facility] [address] [id number] [place] [address]- 2746 Dec, [facility] [place] [facility] [address] [id number] [place] [address]- 8700 Nov, [facility] [place] [facility] [address] [id number] [place] [address]- 0216 Nov, [facility] [place] [facility] [address] [id number] [place] [address]- 3801 October, [facility] [place] [facility] [address] [id number] [place] [address]- 1719 October, [facility] [place] [facility] [address] [id number] [place] [address]- 0316 October, [facility] [place] [facility] [address] [id number] [place] [address]- 2540 October, [facility] [place] [facility] [address] [id number] [place] [address]- 8914 16 Sep, 2012 [facility] [address] [id number] [place] [address]- 6207 20 Aug, 2012 [facility] [place] [facility] [address] [id number] [place] [address]- 9244 18 Aug, 2012 [facility] [address] [id number] [place] [address]- 7467 15 Aug, 2012 [facility] [place] [facility] [address] [id number] [place] [address]- 6317 06 Aug, 2012 [facility] [place] [facility] [address] [id number] [place] [address]- 2636 26 Jul, 2012 [facility] [place] [facility] [address] [id number] [place] [address]- 2352 Jul, [facility] [address] [id number] [place] [address]- 0736 18 Jul, 2012 [facility] [place] [facility] [address] [id number] [place] [address]- 1518 Jun, [facility] [place] [facility] [address] [id number] [place] [address]- 6876 Jun, [facility] [address] [facility] [id number] [place] [address]- 8578 May, [facility] [place] [facility] [address] [id number] [place] [address]- 8567 May, [facility] [place] [facility] [address] [id number] [address]- 3502 Apr, [facility] [place] [facility] [address] [id number] [place] 7684 Apr, [facility] [place] [facility] [address] [id number] [place] [address]- 2717 Apr, [facility] [place] [facility] [address] [id number] 8850 Apr, [facility] [place] [facility] [address] [id number] [place] [address]- 1735 Apr, [facility] [place] [facility] [address] [id number] [place] [address]- 0559 Apr, [facility] [place] [facility] [address] [id number] [place] [address]- 1249 Mar, [facility] [place] [facility] [id number] [place] [address], [place] [address]- 9014 Mar, [facility] [place] [facility] [address] [id number] [place] [address]- 9429 Mar, [facility] [place] [facility] [address] [id number] [place] [address]- 3858 Mar, [facility] [place] [facility] [address] [id number] [place] [address]- 8042 Mar, [facility] [place] [facility] [address] [id number] [place] [address]- 7056 Mar, [facility] [place] [facility] [address] [id number] [place] [address]- 5255 Mar, [facility] [place] [facility] [address] [id number] [place] [address]- 2771 Feb, [facility] [place] [facility] [address] [id number] [place] [address]- 5652 Feb, [facility] [place] [facility] [address] [id number] [place] [address]- 8548 Jan, [facility] [place] [facility] [address] [id number] [place] [address]- 1772 Dec, [facility] [place] [facility] [address] [id number] [place] [address]- 6408 Dec, [facility] [place] [facility] [address] [id number] [place] [address]- 4952 Nov, [facility] [place] [facility] [address] [id number] [place] [address]- 0271 Nov, [facility] [place] [facility] [address] [id number] [place] [address]- 9282 Nov, [facility] [place] [facility] [address] [id number] [place] [address]- 6508 October, [facility] [place] [facility] [address] [id number] [place] [address]- 3816 Sep, [facility] [place] [facility] [address] [id number] [place] [address]- 0160 16 Sep, 2011 [facility] [place] [facility] [address] [id number] [place] [address]- 0112 Sep, [facility] [place] [facility] [address] [id number] [place] [address]- 3510 26 Aug, 2011 [facility] [place] [facility] [address] [id number] [place] [address]- 9761 Aug, [facility] [place] [facility] [address] [id number] [place] [address]- 6457 Aug, [facility] [place] [facility] [address] [id number] [place] [address]- 0103 15 Aug, 2011 [facility] [place] [facility] [address] [id number] [place] [address]- 4955 14 Aug, 2011 [facility] [place] [facility] [address] [id number] [place] [address]- 7469 Aug, [facility] [place] [facility] [address] [id number] [place] [address]- 8618 08 Aug, 2011 [facility] [place] [facility] [address] [id number] [place] [address]- 7233 05 Aug, 2011 [facility] [place] [facility] [address] [id number] [place] 7306 27 Jul, 2011 [facility] [place] [facility] [address] [id number] [place] [address]- 7534 Jul, [facility] [place] [facility] [address] [id number] [place] [address]- 6519 20 Jul, 2011 [facility] [address] [id number] [place] [address]- 7126 15 Jul, 2011 [facility] [place] [facility] [address] [id number] [place] [address] 2546 06 Jul, 2011 [facility] [place] [facility] [address] [id number] [place] [address] 2546 Jul, [facility] [place] [facility] [address] [id number] [place] [address] 2544 Jun, [facility] [place] [facility] [address] [id number] [place] [address]- 3063 Jun, [facility] [address] [id number] [place] [address]- 8746 Jun, [facility] [address] [id number] [place] [address]- 1922 Jun, [facility] [address] [id number] [place] [address]- 2092 May, [facility] [address] [id number] [place] [address]- 9675 May, [facility] [place] [facility] [address] [id number] [place] [address]- 7743 May, [facility] [place] [facility] [address] [id number] [place] [address]- 0701 May, [facility] [place] [facility] [address] [id number] [place] [address]- 0958 May, [facility] [place] [facility] [address] [id number] [place] [address]- 5541 30 Apr, 2011 [facility] [place] [facility] [address] [id number] [place] [address]- 2544 14 Apr, 2011 [facility] [place] [facility] [address] [id number] [place] [address]- 3101 Mar, [facility] [address] [address]- 1711 15 Feb, 2011 [facility] [address] [address]- 0052 Feb, [facility] [address] [address]- 8060 May, [facility] [address] [address]- 3414 Apr, [facility] [address] [address]- 1152 Apr, [facility] [id number] [place] [address] Apr, [facility] [id number] [place] [address] Apr, [facility] [id number] [place] [address] Apr, [facility] [address] [address] Apr, [facility] [address] [address] Mar, [facility] [address] [address] Mar, [facility] [address] [address] Sep, IMMUNIZATIONS No Known Immunizations SOCIAL HISTORY Never Assessed REASON FOR VISIT BH f/u CBrumbackRN PLAN OF CARE Activity Details Follow Up 4 Weeks Reason: VITAL SIGNS Height 68.25 in 2017-08-06 Weight 189.9 lbs 2017-08-06 Heart Rate 100 bpm 2017-08-06 Respiratory Rate 20 2017-08-06 BMI 28.66 kg/m2 2017-08-06 Blood pressure systolic 118 mmHg 2017-08-06 Blood pressure diastolic 72 mmHg 2017-08-06 MEDICATIONS Medication Instructions Dosage Frequency Start Date End Date Duration Status Lisinopril 10 mg Orally Once a day 1 tablet 24h Active Nicoderm CQ 14 MG/24HR Transdermal Once a day 1 patch to skin 24h Active BusPIRone HCl 10 MG Orally Twice a day 1 tablet 12h 30 days Active Lovastatin 20 mg Orally Once a day 1 tablet with a meal 24h Active Metronidazole 500 mg Orally 3 times a day 1 tablet 8h Jul,Jul Active Seroquel 300 MG Orally Once a day 1 tablet at bedtime 24h Apr, 30 days Active Pantoprazole Sodium 40 MG Orally Once a day 1 tablet 24h Active RESULTS No Results PROCEDURES No [...]
--- OUTSIDE RECORDS SUMMARY | 2018-06-23 23:24 | XMS REPORT ---
Author Author CARO CAMARA Organization [facility] Address [address] [place] [address] Care Team Providers Care Mopper Name Role Phone CARO CAMARA Unavailable PROBLEMS Type Condition ICD9-CM Code RIT97-TM Code Onset Dates Condition Status SNOMED Code Problem Mood disorder F39 Active 16844277 Problem Dementia without behavioral disturbance, unspecified dementia type F03.90 Active 16610152 Problem Hypertension, benign I10 Active 50270527 Problem Cognitive dysfunction F09 Active 572447643 Problem 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 005362678 Problem Anxiety disorder, unspecified F41.9 Active 491345646 Problem Major depression F32.9 Active 940255541 ALLERGIES No Information ENCOUNTERS Encounter Location Date Diagnosis [place] [id number] [place] [address]19- 5165 Jan, [place] [address] [place] [id number] [place] [address] 99451- 5057 Nov, [place] [address] [address] Nov, Dementia without behavioral disturbance, unspecified dementia type F03.90 ; Cognitive dysfunction F09 and Major depression F32.9 [facility] [employer] [facility] [address] [place] [address] October, Encounter for examination for admission to halfway Z02.2 ; Tardive dyskinesia G24.01 ; Major depression F32.9 ; Anxiety disorder, unspecified F41.9 ; Cognitive dysfunction F09 and Dementia without behavioral disturbance, unspecified dementia type F03.90 [place] [address] [address] October, [place] [address] [id number] [address] October, [facility] [address] [address] Sep, Acute deep vein thrombosis (DVT) of proximal vein of left lower extremity I82.4Y2 [facility] [address] [address] Sep, Mood disorder F39 and Dementia associated with other underlying disease without behavioral disturbance F02.80 [facility] [address] [address] Sep, Mood disorder F39 and Acute deep vein thrombosis (DVT) of proximal vein of left lower extremity I82.4Y2 [facility] [address] [address] Sep, Via [employer] ([employer]) [address] [place] [id number] Sep, History of DVT (deep vein thrombosis) Z86.718 and Dementia F03.90 [facility] [address] [address] Sep, Mood disorder F39 and Dementia without behavioral disturbance, unspecified dementia type F03.90 [facility] [address] [address] 395[address] Aug, [facility] [address] [address] 9[address] Aug, [facility] [id number] [address] Aug, [facility] [address] [address] 75[address] Aug, [facility] [address] [address] Aug, Acute deep vein thrombosis (DVT) of proximal vein of left lower extremity I82.4Y2 [facility] [employer] ([employer]) [address] [place] [id number] Aug, Left leg swelling M79.89 [facility] [address] [place] [id number] [place] [address] 03983- 0[address] Aug, Mood disorder F39 and Dementia without behavioral disturbance, unspecified dementia type F03.90 [facility] [address] [id number] [place] [address] 69123- 0474 Jul, [facility] [address] [address] Jul, Dementia without behavioral disturbance, unspecified dementia type F03.90 and Mood disorder F39 Via [facility] [place] [address] [place] [id number] Jul, Encounter for examination for admission to halfway Z02.2 ; Rectal bleed K62.5 ; Dementia without behavioral disturbance, unspecified dementia type F03.90 ; Hypertension, benign I10 ; Edema R60.9 and Major depression F32.9 [facility] [address] [place] [id number] [place] [id number] Jul, [facility] [address] [id number] [place] [address] 21359- 8347 Apr, Dementia without behavioral disturbance, unspecified dementia type F03.90 and Mood disorder F39 [facility] [address] [place] [address] 40864- 5762 Apr, [facility] [address] [place] [id number] [place] [address] 66201- 5977 Feb, Hypertension, benign I10 [facility] [address] [id number] [place] [address] 49070- 3084 Dec, Major depression F32.9 ; Anxiety disorder, unspecified F41.9 ; Cognitive dysfunction F09 and Dementia without behavioral disturbance, unspecified dementia type F03.90 [facility] [address] [place] [address] 47876- 1896 October, Hypertension, benign I10 [facility] [address] [place] [address] [id number] [place] [address] 47464- 7812 Sep, Major depression F32.9 ; Anxiety disorder, unspecified F41.9 and Cognitive dysfunction F09 [place] [address] [place] [id number] [place] [address] 35745- 8762 Apr, Major depression F32.9 and Cognitive dysfunction F09 [place] [address] [place] [id number] [place] [address] 68591- 8795 Jan, Anxiety disorder, unspecified F41.9 ; Major depression F32.9 and Cognitive dysfunction F09 [place] [address] [place] [id number] [place] [address] 71586- 2757 Jan, [place] [address] [place] [id number] [place] [address] 91081- 8606 Dec, [place] [address] [place] [id number] [place] [address] 09622- 0926 Dec, [place] [address] [place] [id number] [place] [address] 62579- 8367 Nov, Anxiety disorder, unspecified F41.9 ; Major depression F32.9 and Cognitive dysfunction F09 [place] [address] [place] [id number] [place] [address] 35522- 2720 October, Dementia without behavioral disturbance, unspecified dementia type F03.90 [place] [address] [place] [id number] [place] [address] 56637- 8228 Sep, Cognitive dysfunction F09 and Edema R60.9 [place] [address] [place] [id number] [place] [address] 57354- 6001 Sep, Cognitive dysfunction F09 and Edema R60.9 [place] [address] [place] [id number] [place] [address] 53812- 8463 Aug, Self-care deficit for medication administration R41.89 ; Self-care deficit in patient living alone R46.89 and Cognitive dysfunction F09 [place] [address] [place] [id number] [place] [address] 23695- 6902 Aug, 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 and Unspecified intracranial injury without loss of consciousness, sequela S06.9X0S [facility] [address] [place] [address] [id number] [place] [address] 79003- 8923 Jul, [facility] [address] [place] [address] [id number] [place] [address] 24128- 1166 Jun, Anxiety disorder, unspecified F41.9 and Major depression F32.9 [facility] [address] 91730- 7759 Jun, [facility] [address] [address]- 2016 May, [facility] [address] [address]229- 4923 May, Nausea R11.0 [facility] [address] 86998- 9098 Apr, [facility] [address] 63102- 5118 Mar, Major depression F32.9 [facility] [address] [place] [id number] [place] [address] 00606- 2720 Mar, Encounter for immunization Z23 [facility] [address] [place] [id number] [place] [address] 52637- 6364 Mar, Major depression F32.9 and Anxiety disorder, unspecified F41.9 [facility] [address] [place] [id number] [place] [address] 35344- 1227 Dec, Major depression, chronic 296.20 and Anxiety disorder, unspecified 300.00 [facility] [address] [place] [id number] [place] [address] 71009- 4989 October, Hypertension 401.9 [facility] [address] [place] [id number] [place] [address] 89145- 5865 Sep, [facility] [address] 23514- 5304 Sep, [facility] [place] [facility] [address] [id number] [place] [address]- 7469 18 Jul, 2014 [facility] [place] [facility] [address] [id number] [place] [address]- 9416 Jul, [facility] [place] [facility] [address] [id number] [place] [address]- 0666 Jul, [facility] [place] [facility] [address] [id number] [place] [address]- 5924 May, [facility] [place] [facility] [address] [id number] [place] [address]- 8079 May, [facility] [place] [facility] [address] [id number] [place] [address]- 5580 May, [facility] [place] [facility] [address] [id number] [place] [address]- 4478 May, [facility] [place] [facility] [address] [id number] [place] [address]- 4826 Apr, [facility] [place] [facility] [address] [id number] [place] [address]- 5258 Apr, [facility] [place] [facility] [address] [facility] [id number] [place] [address]- 9499 Feb, [facility] [place] [facility] [address] [id number] [place] [address]- 3587 Feb, [facility] [place] [facility] [address] [id number] [place] [address]- 1758 Jan, [facility] [place] [facility] [address] [id number] [place] [address]- 3917 Jan, [facility] [place] [facility] [address] [id number] [place] [address]- 4907 Jan, [facility] [place] [facility] [address] [id number] [place] [address]- 4845 Jan, [facility] [place] [facility] [address] [id number] [place] [address]- 8695 Dec, [facility] [place] [facility] [address] [id number] [place] [address]- 3900 Dec, [facility] [place] [facility] [address] [id number] [place] [address]- 1786 Nov, [facility] [place] [facility] [address] [id number] [place] [address]- 8545 Nov, [facility] [place] [facility] [address] [id number] [place] [address]- 3586 Nov, [facility] [place] [facility] [address] [id number] [place] [address]- 3394 Nov, [facility] [place] [facility] [address] [id number] [place] [address]- 7330 October, [facility] [place] [facility] [address] [id number] [place] [address]- 8765 October, [facility] [place] [facility] [address] [id number] [place] [address]- 0989 Sep, [facility] [place] [facility] [address] [id number] [place] [address]- 0125 Sep, [facility] [place] [facility] [address] [id number] [place] [address]- 3839 Sep, [facility] [place] [facility] [address] [id number] [place] [address]- 4420 Sep, [facility] [place] [facility] [address] [id number] [place] [address]- 5116 Sep, [facility] [place] [facility] [address] [id number] [place] [address]- 2801 Sep, [facility] [place] [facility] [address] [id number] [place] [address]- 6634 Aug, [facility] [place] [facility] [address] [id number] [place] [address]- 8073 Aug, [facility] [address] [id number] [place] [address]- 7256 Jul, [facility] [place] [facility] [address] [id number] [place] 8826 Jul, [facility] [address] [id number] [place] [address]- 8215 May, [facility] [place] [facility] [address] [id number] [place] [address]- 9758 May, [facility] [address] [id number] [place] [address]- 4870 May, [facility] [place] [facility] [address] [id number] [place] [address]- 9422 May, [facility] [address] [id number] [place] [address]- 7327 May, [facility] [place] [facility] [address] [id number] [place] [address]- 3752 May, [facility] [address] [id number] [place] [address]- 4835 Apr, [facility] [place] [facility] [address] [id number] [place] [address]- 6800 Apr, [facility] [place] [facility] [address] [id number] [address]- 5335 Apr, [facility] [place] [facility] [address] [id number] [address]- 0661 Apr, [facility] [place] [facility] [address] [id number] [place] [address]- 5663 Apr, [facility] [place] [facility] [address] [id number] [address]- 4832 Apr, [facility] [place] [facility] [address] [id number] [place] [address]- 8317 Feb, [facility] [place] [facility] [address] [id number] [place] [address]- 2546 Feb, [facility] [address] [id number] [place] [address]- 6766 Feb, [facility] [address] [id number] [place] [address]- 2546 Feb, [facility] [address] [id number] [place] [address] 2546 Jan, [facility] [address] [id number] [place] [address]- 7291 Dec, [facility] [address] [id number] [place] [address]- 3591 Dec, [facility] [address] [id number] [place] [address]- 1686 Dec, [facility] [address] [id number] [place] [address]- 9635 Dec, [facility] [address] [id number] [place] [address]- 8184 Nov, [facility] [address] [id number] [place] [address]- 0106 Nov, [facility] [address] [id number] [place] [address]- 7126 October, [facility] [address] [id number] [place] [address]- 2546 October, [facility] [address] [id number] [place] [address]- 2546 October, [facility] [address] [id number] [place] [address]- 2546 October, [facility] [address] [id number] [place] [address]- 2546 Sep, [facility] [address] [id number] [place] [address]- 2024 Aug, [facility] [address] [id number] [place] [address]- 5196 Aug, [facility] [place] [facility] [address] [id number] [place] [address]- 4255 Aug, [facility] [place] [facility] [address] [id number] [place] [address]- 8377 06 Aug, 2012 [facility] [place] [facility] [address] [id number] [place] [address]- 8445 Jul, [facility] [place] [facility] [address] [id number] [place] [address]- 2012 Jul, [facility] [place] [facility] [address] [id number] [place] [address]- 7601 Jul, [facility] [place] [facility] [address] [id number] [place] [address]- 5724 Jun, [facility] [place] [facility] [address] [id number] [place] [address]- 7309 Jun, [facility] [place] [facility] [address] [id number] [place] [address]- 9343 May, [facility] [place] [facility] [address] [id number] [place] [address]- 4876 May, [facility] [place] [facility] [address] [id number] [place] [address]- 0622 Apr, [facility] [place] [facility] [address] [id number] [place] [address]- 0875 Apr, [facility] [place] [facility] [address] [id number] [place] [address]- 6688 Apr, [facility] [place] [facility] [address] [id number] [place] [address]- 8408 Apr, [facility] [place] [facility] [address] [id number] [place] [address]- 5681 Apr, [facility] [place] [facility] [address] [id number] [place] [address]- 1278 Apr, [facility] [place] [facility] [address] [id number] [place] [address]- 3779 Mar, [facility] [place] [facility] [address] [id number] [place] [address]- 9816 Mar, [facility] [place] [facility] [address] [id number] [place] [address]- 6953 Mar, [facility] [place] [facility] [address] [id number] [place] [address]- 2817 Mar, [facility] [place] [facility] [address] [id number] [place] [address]- 0867 Mar, [facility] [place] [facility] [address] [id number] [place] [address]- 6356 Mar, [facility] [place] [facility] [address] [id number] [place] [address]- 7952 Mar, [facility] [place] [facility] [address] [id number] [place] [address]- 3670 Feb, [facility] [place] [facility] [address] [id number] [place] [address]- 5322 Feb, [facility] [place] [facility] [address] [facility] [id number] [place] [address]- 0689 Jan, [facility] [place] [facility] [address] [id number] [place] [address]- 3172 Dec, [facility] [place] [facility] [address] [id number] [place] [address]- 8671 Dec, [facility] [place] [facility] [address] [id number] [place] [address]- 0913 Nov, [facility] [place] [facility] [address] [id number] [place] [address]- 7292 Nov, [facility] [place] [facility] [address] [id number] [place] [address]- 8906 Nov, [facility] [place] [facility] [address] [id number] [place] [address]- 9923 October, [facility] [place] [facility] [address] [id number] [place] [address]- 2014 Sep, [facility] [place] [facility] [address] [id number] [place] [address]- 4836 16 Sep, 2011 [facility] [place] [facility] [address] [id number] [place] [address]- 8687 04 Sep, 2011 [facility] [address] [id number] [place] [address]- 4225 26 Aug, 2011 [facility] [place] [facility] [address] [id number] [place] [address]- 2713 Aug, [facility] [address] [id number] [place] [address]- 7349 Aug, [facility] [address] [id number] [place] [address]- 0476 15 Aug, 2011 [facility] [place] [facility] [address] [id number] [place] [address]- 6228 14 Aug, 2011 [facility] [place] [facility] [address] [id number] [place] [address]- 1456 12 Aug, 2011 [facility] [place] [facility] [address] [id number] [place] [address]- 7446 08 Aug, 2011 [facility] [place] [facility] [address] [id number] [place] [address]- 5345 05 Aug, 2011 [facility] [place] [facility] [address] [id number] [place] [address]- 5976 Jul, [facility] [place] [facility] [address] [id number] [place] [address]- 6242 Jul, [facility] [place] [facility] [address] [id number] [place] [address]- 4001 Jul, [facility] [place] [facility] [address] [id number] [place] [address]- 1580 15 Jul, 2011 [facility] [address] [id number] [place] [address]- 7715 06 Jul, 2011 [facility] [place] [facility] [address] [id number] [place] [address]- 8456 Jul, [facility] [address] [id number] [place] [address]- 5246 Jun, [facility] [place] [facility] [address] [id number] [place] [address]- 3847 Jun, [facility] [address] [id number] [place] [address]- 3871 Jun, [facility] [address] [id number] [place] [address]- 4653 Jun, [facility] [address] [id number] [place] [address]- 4234 29 May, 2011 [facility] [address] [id number] [place] [address]- 4038 May, [facility] [address] [id number] [place] [address]- 6455 May, [facility] [address] [facility] [id number] [place] [address]- 0743 May, [facility] [address] [id number] [place] [address]- 7144 May, [facility] [place] [facility] [address] [id number] [place] [address]- 2545 30 Apr, 2011 [facility] [place] [facility] [address] [id number] [place] [address]- 1035 14 Apr, 2011 [facility] [place] [facility] [address] [facility] [id number] [place] 2381 31 Mar, 2011 [facility] [place] [facility] [address] [facility] [id number] [place] [address]- 8606 15 Feb, 2011 [facility] [place] [facility] [id number] [address]- 2481 Feb, [facility] [address] [address]- 3015 May, [facility] [address] [facility] [id number] [place] [address]- 5671 Apr, [facility] [id number] [address]- 5842 Apr, [facility] [address] [facility] [id number] [address] Apr, [facility] [id number] [place] [address] Apr, [facility] [id number] [address] Apr, [facility] [id number] [address] Apr, [facility] [id number] [address] Mar, [facility] [id number] [address] Mar, [facility] [id number] [address] Sep, IMMUNIZATIONS No Known Immunizations SOCIAL HISTORY Never Assessed REASON FOR VISIT Critical finding PLAN OF CARE VITAL SIGNS MEDICATIONS Medication Instructions Dosage Frequency Start Date End Date Duration Status Eliquis 5 mg Orally 2 times a day as directed Aug, 30 days Active Eliquis 5 mg Orally 2 times a day 2 tabs Aug, 07 days Active RESULTS No Results PROCEDURES No [...] attempts Hospitalization History Ischemic colitis, dementia, generalized debility-[facility] 07/30/17
--- OUTSIDE RECORDS SUMMARY | 2018-06-23 23:25 | XMS REPORT ---
Author Author CARO CAMARA Organization [facility] Address [address] [place] [address] Care Team Providers Care Financial Auditor Name Role Phone CARO CAMARA Unavailable PROBLEMS Type Condition ICD9-CM Code [id number] Code Onset Dates Condition Status SNOMED Code Problem Mood disorder F39 Active 24130709 Problem Dementia without behavioral disturbance, unspecified dementia type F03.90 Active 61940412 Problem Hypertension, benign I10 Active 43297414 Problem Cognitive dysfunction F09 Active 272684482 Problem 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 919644586 Problem Anxiety disorder, unspecified F41.9 Active 521233512 Problem Major depression F32.9 Active [id number] ALLERGIES No Information ENCOUNTERS Encounter Location Date Diagnosis [place] [id number] [place] [address]- [address] Jan, [place] [address] [place] [id number] [place] [address]- 1963 Nov, [place] [address] [address] Nov, Dementia without behavioral disturbance, unspecified dementia type F03.90 ; Cognitive dysfunction F09 and Major depression F32.9 [facility] [address] [place] [address] October, Encounter for examination for admission to usp Z02.2 ; Tardive dyskinesia G24.01 ; Major depression F32.9 ; Anxiety disorder, unspecified F41.9 ; Cognitive dysfunction F09 and Dementia without behavioral disturbance, unspecified dementia type F03.90 [place] [address] [address] October, [place] [address] [place] [id number] [address] October, [facility] [address] [address] Sep, Acute deep vein thrombosis (DVT) of proximal vein of left lower extremity I82.4Y2 [facility] [address] [address] Sep, Mood disorder F39 and Dementia associated with other underlying disease without behavioral disturbance F02.80 [facility] [address] [address] Sep, Mood disorder F39 and Acute deep vein thrombosis (DVT) of proximal vein of left lower extremity I82.4Y2 [facility] [address] [address] Sep, [facility] [employer] [employer] [address] [place] [id number] Sep, History of DVT (deep vein thrombosis) Z86.718 and Dementia F03.90 [facility] [address] [address] Sep, Mood disorder F39 and Dementia without behavioral disturbance, unspecified dementia type F03.90 [facility] [address] [address] Aug, [facility] [address] [address] Aug, [facility] [id number] [id number] Aug, [facility] [address] [address] Aug, [facility] [address] [address] Aug, Acute deep vein thrombosis (DVT) of proximal vein of left lower extremity I82.4Y2 [facility] [address] [place] [id number] Aug, Left leg swelling M79.89 [facility] [address] [place] [id number] [place] [address]- 3275 Aug, Mood disorder F39 and Dementia without behavioral disturbance, unspecified dementia type F03.90 [facility] [address] [place] [id number] [place] [address] 99021- 6353 Jul, [facility] [address] [address] Jul, Dementia without behavioral disturbance, unspecified dementia type F03.90 and Mood disorder F39 Via [facility] [address] [place] [id number] Jul, Encounter for examination for admission to usp Z02.2 ; Rectal bleed K62.5 ; Dementia without behavioral disturbance, unspecified dementia type F03.90 ; Hypertension, benign I10 ; Edema R60.9 and Major depression F32.9 [facility] [address] [place] [id number] [place] [id number] Jul, [facility] [address] [place] [id number] [place] [address] 44931- 4649 Apr, Dementia without behavioral disturbance, unspecified dementia type F03.90 and Mood disorder F39 [facility] [id number] [place] [address] 91245- 3983 Apr, [facility] [address] [place] [address] [id number] [place] [address] 48771- 9734 Feb, Hypertension, benign I10 [facility] [address] [place] [address] [id number] [place] [address] 45570- 4122 Dec, Major depression F32.9 ; Anxiety disorder, unspecified F41.9 ; Cognitive dysfunction F09 and Dementia without behavioral disturbance, unspecified dementia type F03.90 [facility] [id number] [place] [address] 90708- 0148 October, Hypertension, benign I10 [facility] [address] [place] [address] [id number] [place] [address] 65895- 5079 Sep, Major depression F32.9 ; Anxiety disorder, unspecified F41.9 and Cognitive dysfunction F09 [place] [address] [place] [id number] [place] [address] 29171- 9455 Apr, Major depression F32.9 and Cognitive dysfunction F09 [place] [address] [place] [id number] [place] [address] 81398- 8822 Jan, Anxiety disorder, unspecified F41.9 ; Major depression F32.9 and Cognitive dysfunction F09 [place] [address] [place] [id number] [place] [address] 10666- 9152 Jan, [place] [address] [place] [id number] [place] [address] 51793- 5336 Dec, [place] [address] [place] [id number] [place] [address] 33206- 9305 Dec, [place] [address] [place] [id number] [place] [address] 29139- 2779 Nov, Anxiety disorder, unspecified F41.9 ; Major depression F32.9 and Cognitive dysfunction F09 [place] [address] [place] [id number] [place] [address] 50415- 0782 October, Dementia without behavioral disturbance, unspecified dementia type F03.90 [place] [address] [place] [id number] [place] [address] 62803- 7570 Sep, Cognitive dysfunction F09 and Edema R60.9 [place] [address] [place] [id number] [place] [address] 57735- 1479 Sep, Cognitive dysfunction F09 and Edema R60.9 [place] [address] [place] [id number] [place] [address] 03807- 9892 Aug, Self-care deficit for medication administration R41.89 ; Self-care deficit in patient living alone R46.89 and Cognitive dysfunction F09 [place] [address] [place] [id number] [place] [address] 72092- 0785 Aug, 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 and Unspecified intracranial injury without loss of consciousness, sequela S06.9X0S [facility] [address] [place] [address] [id number] [place] [address] 32453- 4518 Jul, [facility] [address] [place] [address] [id number] [place] [address] 11346- 4065 Jun, Anxiety disorder, unspecified F41.9 and Major depression F32.9 [facility] [address] 77997- 9323 Jun, [facility] [address] 32723- 7132 May, [facility] [address] 13165- 5146 May, Nausea R11.0 [facility] [address] 16247- 2288 Apr, [facility] [address] 14926- 0127 Mar, Major depression F32.9 [facility] [address] [place] [id number] [place] [address] 29746- 1765 Mar, Encounter for immunization Z23 [facility] [address] [place] [id number] [place] [address] 51594- 1001 Mar, Major depression F32.9 and Anxiety disorder, unspecified F41.9 [facility] [address] [place] [id number] [place] [address] 90029- 5541 Dec, Major depression, chronic 296.20 and Anxiety disorder, unspecified 300.00 [facility] [address] [place] [id number] [place] [address] 43343- 3357 October, Hypertension 401.9 [facility] [address] [place] [id number] [place] [address] 45473- 9863 Sep, [facility] [address] 80044- 8871 Sep, [facility] [place] [facility] [address] [id number] [place] [address]- 6502 18 Jul, 2014 [facility] [place] [facility] [address] [id number] [place] [address]- 6176 Jul, [facility] [place] [facility] [address] [id number] [place] [address]- 4216 Jul, [facility] [place] [facility] [address] [id number] [place] [address]- 9972 May, [facility] [place] [facility] [address] [id number] [place] [address]- 6135 May, [facility] [place] [facility] [address] [id number] [place] [address]- 6361 May, [facility] [place] [facility] [address] [id number] [place] [address]- 3724 May, [facility] [place] [facility] [address] [id number] [place] [address]- 9464 Apr, [facility] [place] [facility] [address] [id number] [place] [address]- 2435 Apr, [facility] [place] [facility] [address] [facility] [id number] [place] [address]- 3471 Feb, [facility] [place] [facility] [address] [id number] [place] [address]- 3473 Feb, [facility] [place] [facility] [address] [id number] [place] [address]- 6306 Jan, [facility] [place] [facility] [address] [id number] [place] [address]- 6488 Jan, [facility] [place] [facility] [address] [id number] [place] [address]- 6283 Jan, [facility] [place] [facility] [address] [id number] [place] [address]- 1714 Jan, [facility] [place] [facility] [address] [id number] [place] [address]- 8571 Dec, [facility] [place] [facility] [address] [id number] [place] [address]- 8645 Dec, [facility] [place] [facility] [address] [id number] [place] [address]- 4367 Nov, [facility] [place] [facility] [address] [id number] [place] [address]- 3430 Nov, [facility] [place] [facility] [address] [id number] [place] [address]- 7123 Nov, [facility] [place] [facility] [address] [id number] [place] [address]- 4816 Nov, [facility] [place] [facility] [address] [id number] [place] [address]- 8262 October, [facility] [place] [facility] [address] [id number] [place] [address]- 6311 October, [facility] [place] [facility] [address] [id number] [place] [address]- 3399 Sep, [facility] [place] [facility] [address] [id number] [place] [address]- 7432 Sep, [facility] [place] [facility] [address] [id number] [place] [address]- 2343 Sep, [facility] [place] [facility] [address] [id number] [place] [address]- 1550 Sep, [facility] [place] [facility] [address] [id number] [place] [address]- 6227 Sep, [facility] [place] [facility] [address] [id number] [place] [address]- 3792 Sep, [facility] [place] [facility] [address] [id number] [place] [address]- 6035 Aug, [facility] [place] [facility] [address] [id number] [place] [address]- 8189 Aug, [facility] [address] [id number] [place] [address]- 5575 Jul, [facility] [place] [facility] [address] [id number] [place] 1466 Jul, [facility] [address] [id number] [place] [address]- 7921 May, [facility] [place] [facility] [address] [id number] [place] [address]- 3252 May, [facility] [address] [id number] [place] [address]- 0215 May, [facility] [place] [facility] [address] [id number] [place] [address]- 6335 May, [facility] [address] [id number] [place] [address]- 5740 May, [facility] [place] [facility] [address] [id number] [place] [address]- 0025 May, [facility] [address] [id number] [place] [address]- 8859 Apr, [facility] [place] [facility] [address] [id number] [place] [address]- 2329 Apr, [facility] [place] [facility] [address] [id number] [address]- 9306 Apr, [facility] [place] [facility] [address] [id number] [address]- 3647 Apr, [facility] [place] [facility] [address] [id number], [place] [address]- 1045 Apr, [facility] [place] [facility] [address] [id number], [place] [address]- 8946 Apr, [facility] [place] [facility] [address] [id number] [place] [address]- 8761 Feb, [facility] [place] [facility] [address] [id number] [place] [address]- 2546 Feb, [facility] [address] [id number] [place] [address]- 2816 Feb, [facility] [address] [id number] [place] [address]- 2546 Feb, [facility] [address] [id number] [place] [address] 2546 Jan, [facility] [address] [id number] [place] [address]- 0757 Dec, [facility] [address] [id number] [place] [address]- 0484 Dec, [facility] [address] [id number] [place] [address]- 8696 Dec, [facility] [address] [id number] [place] [address]- 2647 Dec, [facility] [address] [id number] [place] [address]- 7534 Nov, [facility] [address] [id number] [place] [address]- 6756 Nov, [facility] [address] [id number] [place] [address]- 6083 October, [facility] [address] [id number] [place] [address]- 2546 October, [facility] [address] [id number] [place] [address]- 2546 October, [facility] [address] [id number] [place] [address]- 2546 October, [facility] [address] [id number] [place] [address]- 2546 Sep, [facility] [address] [id number] [place] [address]- 8233 Aug, [facility] [address] [id number] [place] [address]- 0526 Aug, [facility] [place] [facility] [address] [id number] [place] [address]- 3159 Aug, [facility] [place] [facility] [address] [id number] [place] [address]- 9894 06 Aug, 2012 [facility] [place] [facility] [address] [id number] [place] [address]- 6298 Jul, [facility] [place] [facility] [address] [id number] [place] [address]- 6168 Jul, [facility] [place] [facility] [address] [id number] [place] [address]- 4409 Jul, [facility] [place] [facility] [address] [id number] [place] [address]- 4820 Jun, [facility] [place] [facility] [address] [id number] [place] [address]- 8366 Jun, [facility] [place] [facility] [address] [id number] [place] [address]- 6276 May, [facility] [place] [facility] [address] [id number] [place] [address]- 4104 May, [facility] [place] [facility] [address] [id number] [place] [address]- 4640 Apr, [facility] [place] [facility] [address] [id number] [place] [address]- 0459 Apr, [facility] [place] [facility] [address] [id number] [place] [address]- 5095 Apr, [facility] [place] [facility] [address] [id number] [place] [address]- 8186 Apr, [facility] [place] [facility] [address] [id number] [place] [address]- 6155 Apr, [facility] [place] [facility] [address] [id number] [place] [address]- 8450 Apr, [facility] [place] [facility] [address] [id number] [place] [address]- 3989 Mar, [facility] [place] [facility] [address] [id number] [place] [address]- 5386 Mar, [facility] [place] [facility] [address] [id number] [place] [address]- 2069 Mar, [facility] [place] [facility] [address] [id number] [place] [address]- 4562 Mar, [facility] [place] [facility] [address] [id number] [place] [address]- 8953 Mar, [facility] [place] [facility] [address] [id number] [place] [address]- 6303 Mar, [facility] [place] [facility] [address] [id number] [place] [address]- 2826 Mar, [facility] [place] [facility] [address] [id number] [place] [address]- 6650 Feb, [facility] [place] [facility] [address] [id number] [place] [address]- 6621 Feb, [facility] [place] [facility] [address] [facility] [id number] [place] [address]- 9310 Jan, [facility] [place] [facility] [address] [id number] [place] [address]- 0722 Dec, [facility] [place] [facility] [address] [id number] [place] [address]- 5201 Dec, [facility] [place] [facility] [address] [id number] [place] [address]- 0642 Nov, [facility] [place] [facility] [address] [id number] [place] [address]- 1906 Nov, [facility] [place] [facility] [address] [id number] [place] [address]- 0706 Nov, [facility] [place] [facility] [address] [id number] [place] [address]- 2272 October, [facility] [place] [facility] [address] [id number] [place] [address]- 8305 Sep, [facility] [place] [facility] [address] [id number] [place] [address]- 9589 16 Sep, 2011 [facility] [place] [facility] [address] [id number] [place] [address]- 0313 04 Sep, 2011 [facility] [address] [id number] [place] [address]- 9734 26 Aug, 2011 [facility] [place] [facility] [address] [id number] [place] [address]- 2864 Aug, [facility] [address] [id number] [place] [address]- 1072 Aug, [facility] [address] [id number] [place] [address]- 1511 15 Aug, 2011 [facility] [place] [facility] [address] [id number] [place] [address]- 2916 14 Aug, 2011 [facility] [place] [facility] [address] [id number] [place] [address]- 1779 12 Aug, 2011 [facility] [place] [facility] [address] [id number] [place] [address]- 7345 08 Aug, 2011 [facility] [place] [facility] [address] [id number] [place] [address]- 3115 05 Aug, 2011 [facility] [place] [facility] [address] [id number] [place] [address]- 6918 Jul, [facility] [place] [facility] [address] [id number] [place] [address]- 4257 Jul, [facility] [place] [facility] [address] [id number] [place] [address]- 6307 Jul, [facility] [place] [facility] [address] [id number], [place] [address]- 9190 15 Jul, 2011 [facility] [address] [id number] [place] [address]- 2631 06 Jul, 2011 [facility] [place] [facility] [address] [id number] [place] [address]- 7776 Jul, [facility] [address] [id number] [place] [address]- 1336 Jun, [facility] [place] [facility] [address] [id number] [place] [address]- 8870 Jun, [facility] [address] [id number] [place] [address]- 1449 Jun, [facility] [address] [id number] [place] [address]- 2949 Jun, [facility] [address] [id number] [place] [address]- 0390 29 May, 2011 [facility] [address] [id number] [place] [address]- 6613 May, [facility] [address] [id number] [place] [address]- 6354 May, [facility] [address] [facility] [id number] [place] [address]- 9968 May, [facility] [address] [id number] [place] [address]- 0961 May, [facility] [place] [facility] [address] [id number] [place] [address]- 2548 30 Apr, 2011 [facility] [place] [facility] [address] [id number] [place] [address]- 3241 14 Apr, 2011 [facility] [place] [facility] [address] [facility] [id number] [place] 0018 31 Mar, 2011 [facility] [place] [facility] [address] [facility] [id number] [place] [address]- 9810 15 Feb, 2011 [facility] [place] [facility] [address] [facility] [id number] [address] Feb, [facility] [address] [facility] [id number], [place] [address] May, [facility] [address] [facility] [id number][place] [address] Apr, [facility] [address] [facility] [id number], [place] [address] Apr, [facility] [address] [facility] [id number][place] [address] Apr, [facility] [address] [facility] [id number][place] [address] Apr, [facility] [address] [facility] [id number], [place] [address] Apr, [facility] [id number] [address] Apr, [facility] [id number], [place] [address] Mar, [facility] [id number], [place] [address] Mar, [facility] [id number], [place] [address] Sep, IMMUNIZATIONS No Known Immunizations SOCIAL HISTORY Never Assessed REASON FOR VISIT [place] admission PLAN OF CARE Activity Details Follow Up prn Reason: VITAL SIGNS MEDICATIONS Medication Instructions Dosage Frequency Start Date End Date Duration Status Metronidazole 500 mg Orally 3 times a day 1 tablet 8h 23 Jul, 2017Jul Active Pantoprazole Sodium 40 MG Orally Once a day 1 tablet 24h Active BusPIRone HCl 10 MG Orally Twice a day 1 tablet 12h 30 days Active Seroquel 300 MG Orally Once a day 1 tablet at bedtime 24h 14 Apr, 2016 30 days Active Lovastatin 20 mg Orally [...] attempts Hospitalization History Ischemic colitis, dementia, generalized debility-[facility] 07/30/17
--- OUTSIDE RECORDS SUMMARY | 2018-06-23 23:25 | XMS REPORT ---
Author Author GRACE WHIT Organization [facility] Address [address] [place] [address] Care Team Providers Care Medicare Coordinator Name Role Phone SAADGERRI WUA Unavailable PROBLEMS Type Condition ICD9-CM Code GUG87-AQ Code Onset Dates Condition Status SNOMED Code Problem Mood disorder F39 Active 15243669 Problem Dementia without behavioral disturbance, unspecified dementia type F03.90 Active 86744172 Problem Hypertension, benign I10 Active 92913126 Problem Cognitive dysfunction F09 Active 158007085 Problem 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 509579784 Problem Anxiety disorder, unspecified F41.9 Active 115023220 Problem Major depression F32.9 Active 349916884 ALLERGIES No Information ENCOUNTERS Encounter Location Date Diagnosis [place] [id number] [place] [address]72- 3908 Jan, [place] [address] [address]- [address] Nov, [place] [id number] [place] [address] 80352- 5714 Nov, Dementia without behavioral disturbance, unspecified dementia type F03.90 ; Cognitive dysfunction F09 and Major depression F32.9 [facility] [address] [place] [address] October, Encounter for examination for admission to group home Z02.2 ; Tardive dyskinesia G24.01 ; Major depression F32.9 ; Anxiety disorder, unspecified F41.9 ; Cognitive dysfunction F09 and Dementia without behavioral disturbance, unspecified dementia type F03.90 [place] [id number] [place] [address] 07061- 7589 October, [place] [id number] [address] October, [facility] [address] [address] Sep, Acute deep vein thrombosis (DVT) of proximal vein of left lower extremity I82.4Y2 [facility] [id number] [address] Sep, Mood disorder F39 and Dementia associated with other underlying disease without behavioral disturbance F02.80 [facility] [id number] [address] 2547 Sep, Mood disorder F39 and Acute deep vein thrombosis (DVT) of proximal vein of left lower extremity I82.4Y2 [facility] [id number] [address] Sep, [facility] [address] [place] [id number] Sep, History of DVT (deep vein thrombosis) Z86.718 and Dementia F03.90 [facility] [id number] [address] Sep, Mood disorder F39 and Dementia without behavioral disturbance, unspecified dementia type F03.90 [facility] [id number] [address] Aug, [facility] [id number] [address] Aug, [facility] [id number] [id number] Aug, [facility] [id number] [address] Aug, [facility] [id number] [address] Aug, Acute deep vein thrombosis (DVT) of proximal vein of left lower extremity I82.4Y2 [facility] [address] [place] [id number] Aug, Left leg swelling M79.89 [facility] [id number] [place] [address] 36039- 6781 Aug, Mood disorder F39 and Dementia without behavioral disturbance, unspecified dementia type F03.90 [facility] [id number] [place] [address] 84195- 7911 Jul, [facility] [address] [address] Jul, Dementia without behavioral disturbance, unspecified dementia type F03.90 and Mood disorder F39 [facility] [place] [address] [place] [id number] Jul, Encounter for examination for admission to group home Z02.2 ; Rectal bleed K62.5 ; Dementia without behavioral disturbance, unspecified dementia type F03.90 ; Hypertension, benign I10 ; Edema R60.9 and Major depression F32.9 [facility] [address] [id number] Jul, [facility] [id number] [place] [address] 10117- 5086 Apr, Dementia without behavioral disturbance, unspecified dementia type F03.90 and Mood disorder F39 [facility] [id number] [place] [address] 34417- 8268 Apr, [facility] [id number] [place] [address] 94860- 3117 Feb, Hypertension, benign I10 [facility] [id number] [place] [address] 32569- 2123 Dec, Major depression F32.9 ; Anxiety disorder, unspecified F41.9 ; Cognitive dysfunction F09 and Dementia without behavioral disturbance, unspecified dementia type F03.90 [facility] [id number] [place] [address] 31654- 5683 October, Hypertension, benign I10 [facility] [id number] [place] [address] 86056- 1706 Sep, Major depression F32.9 ; Anxiety disorder, unspecified F41.9 and Cognitive dysfunction F09 [place] [id number] [place] [address] 91030- 0612 Apr, Major depression F32.9 and Cognitive dysfunction F09 [place] [id number] [place] [address] 75737- 0467 Jan, Anxiety disorder, unspecified F41.9 ; Major depression F32.9 and Cognitive dysfunction F09 [place] [id number] [place] [address] 60088- 7490 Jan, [place] [address] 47688- 0075 Dec, [place] [id number] [place] [address] 71437- 2888 Dec, [place] [id number] [place] [address] 57473- 9028 Nov, Anxiety disorder, unspecified F41.9 ; Major depression F32.9 and Cognitive dysfunction F09 [place] [id number] [place] [address] 59506- 8469 October, Dementia without behavioral disturbance, unspecified dementia type F03.90 [place] [id number] [place] [address] 89356- 9141 Sep, Cognitive dysfunction F09 and Edema R60.9 [place] [id number] [place] [address] 63963- 3635 Sep, Cognitive dysfunction F09 and Edema R60.9 [place] [id number] [place] [address] 00666- 2424 Aug, Self-care deficit for medication administration R41.89 ; Self-care deficit in patient living alone R46.89 and Cognitive dysfunction F09 [place] [id number] [place] [address] 76676- 2232 07 Mar, 2016 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 and Unspecified intracranial injury without loss of consciousness, sequela S06.9X0S [facility] [id number] [place] [address] 66889- 1545 Jul, [facility] [id number] [place] [address] 75461- 0361 Jun, Anxiety disorder, unspecified F41.9 and Major depression F32.9 [facility] [id number] [place] [address] 40395- 0425 Jun, [facility] [id number] [place] [address] 03467- 0696 May, [facility] [address] 59939- 4062 May, Nausea R11.0 [place] [address] 73171- 2245 Apr, [facility] [id number] [place] [address] 29983- 1159 Mar, Major depression F32.9 [place] [address] 09273- 4306 Mar, Encounter for immunization Z23 [facility] [id number] [place] [address] 35854- 3176 Mar, Major depression F32.9 and Anxiety disorder, unspecified F41.9 [facility] [id number] [place] [address] 01458- 0181 Dec, Major depression, chronic 296.20 and Anxiety disorder, unspecified 300.00 [facility] [id number] [place] [address] 33693- 9104 October, Hypertension 401.9 [facility] [id number] [place] [address] 29519- 3202 Sep, [facility] [address] 87016- 9132 Sep, [facility] [place] [facility] [address] [id number] [place] [address] 2119 Jul, [facility] [place] [facility] [address] [id number] [place] [address]- 5510 Jul, [facility] [place] [facility] [address] [id number] [place] [address]- 5395 Jul, [facility] [place] [facility] [address] [id number] [place] [address]- 6026 May, [facility] [place] [facility] [address] [id number] [place] [address]- 1213 May, [facility] [place] [facility] [address] [id number] [place] [address]- 1081 May, [facility] [place] [facility] [address] [id number] [place] [address]- 9956 May, [facility] [place] [facility] [address] [id number] [place] [address]- 4046 Apr, [facility] [place] [facility] [address] [id number] [place] [address]- 0437 Apr, [facility] [place] [facility] [address] [facility] [id number] [place] [address]- 1145 Feb, [facility] [place] [facility] [address] [id number] [place] [address]- 3971 Feb, [facility] [place] [facility] [address] [id number] [address]- 8656 Jan, [facility] [place] [facility] [address] [id number] [place] [address]- 4384 Jan, [facility] [place] [facility] [address] [id number] [place] [address]- 5833 Jan, [facility] [place] [facility] [address] [id number] [place] [address]- 1011 Jan, [facility] [place] [facility] [address] [id number] [place] [address]- 8380 Dec, [facility] [place] [facility] [address] [id number] [place] [address]- 1732 Dec, [facility] [place] [facility] [address] [id number] [place] [address]- 3960 Nov, [facility] [place] [facility] [address] [id number] [place] [address]- 4115 Nov, [facility] [place] [facility] [address] [id number] [place] [address]- 5720 Nov, [facility] [place] [facility] [address] [id number] [place] [address]- 1720 Nov, [facility] [place] [facility] [address] [id number] [place] [address]- 0433 October, [facility] [place] [facility] [address] [id number] [place] [address]- 4741 October, [facility] [place] [facility] [address] [id number] [place] [address]- 3556 Sep, [facility] [place] [facility] [address] [id number] [place] [address]- 2399 Sep, [facility] [place] [facility] [address] [id number] [place] [address]- 2641 Sep, [facility] [place] [facility] [address] [id number] [place] [address]- 7079 Sep, [facility] [place] [facility] [address] [id number] [place] [address]- 6202 Sep, [facility] [place] [facility] [address] [id number] [place] [address]- 3848 Sep, [facility] [place] [facility] [address] [id number] [place] [address]- 2313 Aug, [facility] [place] [facility] [address] [id number] [place] [address]- 7711 Aug, [facility] [place] [facility] [address] [id number] [place] [address]- 6019 Jul, [facility] [place] [facility] [address] [id number] [place]25 Jul, [facility] [place] [facility] [address] [facility] [id number] [place] [address]- 7836 May, [facility] [place] [facility] [address] [id number] [place] [address]- 0765 May, [facility] [place] [facility] [address] [id number] [place] [address]- 1531 May, [facility] [place] [facility] [address] [facility] [id number] [place] [address]- 7433 May, [facility] [place] [facility] [address] [facility] [id number] [place] [address]- 2979 May, [facility] [place] [facility] [address] [id number] [address]- 8522 May, [facility] [place] [facility] [address] [id number], [place] [address]- 7126 Apr, [facility] [place] [facility] [address] [id number] [place] [address]- 0467 Apr, [facility] [place] [facility] [address] [id number], [place] [address]- 3317 Apr, [facility] [place] [facility] [address] [id number], [place] [address]- 8817 Apr, [facility] [place] [facility] [address] [id number], [place] [address]- 6341 Apr, [facility] [place] [facility] [address] [facility] [id number], [place] [address]- 5340 Apr, [facility] [place] [facility] [address] [facility] [id number], [place] [address]- 0467 Feb, [facility] [place] [facility] [address] [id number] [place] [address] 2549 Feb, [facility] [address] [id number] [place] [address]- 5982 Feb, [facility] [address] [id number] [place] [address] 2546 Feb, [facility] [address] [id number] [place] [address]- 1306 Jan, [facility] [address] [id number] [place] [address]- 1051 Dec, [facility] [address] [id number] [place] [address]- 0373 Dec, [facility] [address] [id number] [place] [address]- 1217 Dec, [facility] [address] [id number] [place] [address]- 7257 Dec, [facility] [address] [id number] [place] [address]- 1686 Nov, [facility] [address] [id number] [place] [address]- 1879 Nov, [facility] [address] [id number] [place] [address]- 0551 October, [facility] [address] [id number] [place] [address]- 5267 October, [facility] [address] [id number] [place] [address] 2540 October, [facility] [address] [id number] [place] [address]- 2546 October, [facility] [address] [id number] [place] [address]- 2546 Sep, [facility] [address] [id number] [place] [address]- 0305 Aug, [facility] [address] [id number] [place] [address]- 0719 18 Aug, 2012 [facility] [place] [facility] [address] [id number] [place] [address]- 4526 Aug, [facility] [place] [facility] [address] [id number] [place] [address]- 0505 06 Aug, 2012 [facility] [place] [facility] [address] [id number] [place] [address]- 3306 Jul, [facility] [place] [facility] [address] [id number] [place] [address]- 3066 Jul, [facility] [place] [facility] [address] [id number] [place] [address]- 1090 Jul, [facility] [place] [facility] [address] [id number] [place] [address]- 5744 Jun, [facility] [place] [facility] [address] [id number] [place] [address]- 2703 Jun, [facility] [place] [facility] [address] [id number] [place] [address]- 4383 May, [facility] [place] [facility] [address] [id number] [place] [address]- 1719 May, [facility] [place] [facility] [address] [id number] [place] [address]- 5026 Apr, [facility] [place] [facility] [address] [id number], [place] [address]- 7458 Apr, [facility] [place] [facility] [address] [id number] [place] [address]- 2290 Apr, [facility] [place] [facility] [address] [id number] [place] [address]- 7171 Apr, [facility] [place] [facility] [address] [id number] [place] [address]- 2241 Apr, [facility] [place] [facility] [address] [id number] [place] [address]- 2056 Apr, [facility] [place] [facility] [address] [id number] [place] [address]- 3646 Mar, [facility] [place] [facility] [address] [id number] [place] [address]- 9406 Mar, [facility] [place] [facility] [address] [id number] [place] [address]- 8292 Mar, [facility] [place] [facility] [address] [id number] [place] [address]- 1049 Mar, [facility] [place] [facility] [address] [id number] [place] [address]- 5249 Mar, [facility] [place] [facility] [address] [id number] [place] [address]- 0715 Mar, [facility] [place] [facility] [address] [id number] [place] [address]- 0921 Mar, [facility] [place] [facility] [address] [id number] [place] [address]- 5947 Feb, [facility] [place] [facility] [address] [id number] [place] [address]- 1028 04 Feb, 2012 [facility] [place] [facility] [address] [facility] [id number] [place] [address]- 7590 Jan, [facility] [place] [facility] [address] [id number] [place] [address]- 1371 Dec, [facility] [place] [facility] [address] [id number] [place] [address]- 8316 Dec, [facility] [place] [facility] [address] [id number] [place] [address]- 9027 Nov, [facility] [place] [facility] [address] [facility] [id number] [place] [address]- 8417 Nov, [facility] [place] [facility] [address] [facility] [id number] [place] [address]- 9868 Nov, [facility] [place] [facility] [address] [id number] [place] [address]- 0096 October, [facility] [place] [facility] [address] [id number] [place] [address]- 8781 Sep, [facility] [place] [facility] [address] [id number] [place] [address]- 9926 16 Sep, 2011 [facility] [place] [facility] [address] [id number] [place] [address]- 4137 04 Sep, 2011 [facility] [place] [facility] [address] [id number] [place] [address]- 8787 26 Aug, 2011 [facility] [place] [facility] [address] [id number] [place] [address]- 8499 21 Aug, 2011 [facility] [place] [facility] [address] [id number] [place] [address]- 4631 Aug, [facility] [place] [facility] [address] [id number] [place] [address]- 6581 15 Aug, 2011 [facility] [place] [facility] [address] [id number] [place] [address]- 4340 14 Aug, 2011 [facility] [place] [facility] [address] [id number] [place] [address]- 0118 12 Aug, 2011 [facility] [place] [facility] [address] [id number] [place] [address]- 7372 08 Aug, 2011 [facility] [place] [facility] [address] [id number] [place] [address]- 7799 05 Aug, 2011 [facility] [place] [facility] [address] [id number] [place] [address]- 9696 Jul, [facility] [place] [facility] [address] [id number] [place] [address]- 5762 Jul, [facility] [place] [facility] [address] [id number] [place] [address]- 1529 Jul, [facility] [place] [facility] [address] [id number], [place] [address]- 0205 15 Jul, 2011 [facility] [address] [id number] [place] [address]- 5118 Jul, [facility] [place] [facility] [address] [id number] [place] [address]- 9846 Jul, [facility] [address] [facility] [id number] [place] [address]- 9120 Jun, [facility] [place] [facility] [address] [id number] [place] [address]- 1097 Jun, [facility] [address] [id number] [place] [address], [place] [address]- 7059 Jun, [facility] [place] [facility] [address] [id number] [place] [address]- 8412 Jun, [facility] [address] [facility] [id number] [place] [address]- 7860 29 May, 2011 [facility] [place] [facility] [address] [id number] [place] [address]- 2247 May, [facility] [address] [facility] [id number] [place] [address]- 1865 May, [facility] [place] [facility] [address] [facility] [id number] [place] [address]- 4630 May, [facility] [address] [facility] [id number] [place] [address]- 1565 May, [facility] [place] [facility] [address] [id number], [place] [address] 30 Apr, 2011 [facility] [place] [facility] [address] [id number] [place] [address] 14 Apr, 2011 [facility] [place] [facility] [address] [facility] [id number] [place] [address] 31 Mar, 2011 [facility] [place] [facility] [address] [facility] [id number], [place] [address] 15 Feb, 2011 [facility] [place] [facility] [id number] [address] Feb, [facility] [id number] [address] May, [facility] [id number] [address] Apr, [facility] [id number] [address] Apr, [facility] [id number] [address] Apr, [facility] [id number] [address] Apr, [facility] [id number], [place] [address] Apr, [facility] [id number] [address] Apr, [facility] [id number] [address] Mar, [facility] [id number] [address] Mar, [facility] [id number] [address] Sep, IMMUNIZATIONS No Known Immunizations SOCIAL HISTORY Never Assessed REASON FOR VISIT senior living PLAN OF CARE VITAL SIGNS MEDICATIONS Medication Instructions Dosage Frequency Start Date End Date Duration Status Trihexyphenidyl HCl 2 MG Orally twice a day 0.5 tablet 12h Jul, 30 day(s) Active RESULTS No Results PROCEDURES [...] attempts Hospitalization History Ischemic colitis, dementia, generalized debility-[facility] 07/30/17
--- OUTSIDE RECORDS SUMMARY | 2018-06-23 23:26 | XMS REPORT ---
Author Author MALGORZATA COON Organization [facility] Address [address] [place] [address] Care Team Providers Care Jacquard Twine Polisher Operator Name Role Phone MALGORZATA COON Unavailable PROBLEMS Type Condition ICD9-CM Code VWK19-YG Code Onset Dates Condition Status SNOMED Code Problem Mood disorder F39 Active 32656653 Problem Dementia without behavioral disturbance, unspecified dementia type F03.90 Active 27865105 Problem Hypertension, benign I10 Active 01120067 Problem Cognitive dysfunction F09 Active 394160334 Problem 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 325719804 Problem Anxiety disorder, unspecified F41.9 Active 456720423 Problem Major depression F32.9 Active 352783347 ALLERGIES No Information ENCOUNTERS Encounter Location Date Diagnosis [place] [id number] [place] [address] 11667- 8508 Jan, [place] [address] [place] [id number] [place] [address] 36748- 1092 Nov, [place] [address] [place] [address] 63781- 1343 Nov, Dementia without behavioral disturbance, unspecified dementia type F03.90 ; Cognitive dysfunction F09 and Major depression F32.9 [employer] [address] [place] [address] October, Encounter for examination for admission to snf Z02.2 ; Tardive dyskinesia G24.01 ; Major depression F32.9 ; Anxiety disorder, unspecified F41.9 ; Cognitive dysfunction F09 and Dementia without behavioral disturbance, unspecified dementia type F03.90 [place] [address], [place] [address] October, [place] [address] [place] [id number] [address] October, [facility] [address], [place] [address] Sep, Acute deep vein thrombosis (DVT) of proximal vein of left lower extremity I82.4Y2 [facility] [address] [place] [address] [id number] [address] 4[address] Sep, Mood disorder F39 and Dementia associated with other underlying disease without behavioral disturbance F02.80 [facility] [address] [facility] [id number] [address] 2547 Sep, Mood disorder F39 and Acute deep vein thrombosis (DVT) of proximal vein of left lower extremity I82.4Y2 [facility] [address] [place] [id number] [address] Sep, [facility] [employer] [facility] [address] [place] [id number] Sep, History of DVT (deep vein thrombosis) Z86.718 and Dementia F03.90 [facility] [address], [place] [address] Sep, Mood disorder F39 and Dementia without behavioral disturbance, unspecified dementia type F03.90 [facility] [address], [place] [address] 37[address] Aug, [facility] [address] [address] 2017 Aug, [facility] [address] [id number] [id number] Aug, [facility] [address], [place] [address] 96[address] Aug, [facility] [address] [place] [address] [id number] [address] Aug, Acute deep vein thrombosis (DVT) of proximal vein of left lower extremity I82.4Y2 [facility] [address] [place] [id number] Aug, Left leg swelling M79.89 [facility] [address] [address] Aug, Mood disorder F39 and Dementia without behavioral disturbance, unspecified dementia type F03.90 [facility] [address] [place] [id number] [place] [address] 05783- 8058 Jul, [facility] [address] [address]- 2792 Jul, Dementia without behavioral disturbance, unspecified dementia type F03.90 and Mood disorder F39 [facility] [address] [place] [id number] Jul, Encounter for examination for admission to snf Z02.2 ; Rectal bleed K62.5 ; Dementia without behavioral disturbance, unspecified dementia type F03.90 ; Hypertension, benign I10 ; Edema R60.9 and Major depression F32.9 [facility] [address] [id number] Jul, [facility] [address] [address]- 0776 Apr, Dementia without behavioral disturbance, unspecified dementia type F03.90 and Mood disorder F39 [facility] [address] [place] [id number] [place] [address] 51078- 2100 Apr, [facility] [address] [place] [id number] [place] [address] 66564- 0063 Feb, Hypertension, benign I10 [facility] [address] [place] [address] [id number] [place] [address] 59108- 8484 Dec, Major depression F32.9 ; Anxiety disorder, unspecified F41.9 ; Cognitive dysfunction F09 and Dementia without behavioral disturbance, unspecified dementia type F03.90 [facility] [address] [place] [address] [id number] [place] [address] 01768- 7792 October, Hypertension, benign I10 [place] [address] [address] Sep, Major depression F32.9 ; Anxiety disorder, unspecified F41.9 and Cognitive dysfunction F09 [place] [address] [place] [id number] [place] [address] 89855- 2027 Apr, Major depression F32.9 and Cognitive dysfunction F09 [place] [address] [place] [id number] [place] [address] 56113- 9357 Jan, Anxiety disorder, unspecified F41.9 ; Major depression F32.9 and Cognitive dysfunction F09 [place] [address] [place] [id number] [place] [address] 76862- 0423 Jan, [place] [address] [place] [id number] [place] [address] 67431- 5093 Dec, [place] [address] [place] [id number] [place] [address] 59448- 4142 Dec, [place] [address] [place] [id number] [place] [address] 66753- 8657 Nov, Anxiety disorder, unspecified F41.9 ; Major depression F32.9 and Cognitive dysfunction F09 [place] [address] [place] [id number] [place] [address] 43608- 7153 October, Dementia without behavioral disturbance, unspecified dementia type F03.90 [place] [address] [place] [id number] [place] [address] 19404- 0550 Sep, Cognitive dysfunction F09 and Edema R60.9 [place] [address] [place] [id number] [place] [address] 31702- 4534 Sep, Cognitive dysfunction F09 and Edema R60.9 [place] [address] [place] [id number] [place] [address] 15868- 1651 Aug, Self-care deficit for medication administration R41.89 ; Self-care deficit in patient living alone R46.89 and Cognitive dysfunction F09 [place] [address] [place] [id number] [place] [address] 74898- 6250 Aug, 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 and Unspecified intracranial injury without loss of consciousness, sequela S06.9X0S [facility] [address] [place] [address] [id number] [place] [address] 30809- 1789 Jul, [facility] [address] [place] [address] [id number] [place] [address] 42105- 2289 Jun, Anxiety disorder, unspecified F41.9 and Major depression F32.9 [facility] [address] [place] [address] [id number] [place] [address] 63296- 1840 Jun, [facility] [address] [place] [id number] [place] [address] 46715- 4874 May, [facility] [address] [place] [id number] [place] [address] 53829- 4713 May, Nausea R11.0 [facility] [address] [place] [id number] [place] [address] 11896- 0596 Apr, [facility] [address] [place] [id number] [place] [address] 35707- 0880 Mar, Major depression F32.9 [facility] [address] [place] [id number] [place] [address] 55716- 6350 Mar, Encounter for immunization Z23 [facility] [address] [place] [id number] [place] [address] 39539- 6422 Mar, Major depression F32.9 and Anxiety disorder, unspecified F41.9 [facility] [address] [place] [address] [id number] [place] [address] 16248- 5728 Dec, Major depression, chronic 296.20 and Anxiety disorder, unspecified 300.00 [facility] [address] [place] [id number] [place] [address] 52897- 2232 October, Hypertension 401.9 [facility] [address] [place] [address] [id number] [place] [address] 32063- 2659 Sep, [facility] [address] [place] [facility] [address] 6821 13 Sep, 2014 [facility] [place] [facility] [address] [id number] [place] [address]- 6604 18 Jul, 2014 [facility] [place] [facility] [address] [id number] [place] [address]- 0286 16 Jul, 2014 [facility] [place] [facility] [address] [id number] [place] [address]- 8586 16 Jul, 2014 [facility] [place] [facility] [address] [id number] [place] [address]- 0129 May, [facility] [place] [facility] [address] [id number] [place] [address]- 3521 May, [facility] [place] [facility] [address] [id number] [place] [address]- 0463 May, [facility] [place] [facility] [address] [id number] [place] [address]- 4447 May, [facility] [place] [facility] [address] [id number] [place] [address]- 5999 Apr, [facility] [place] [facility] [address] [id number] [place] [address]- 2799 Apr, [facility] [place] [facility] [address] [id number] [place] [address]- 9474 Feb, [facility] [place] [facility] [address] [id number] [place] [address]- 2549 Feb, [facility] [place] [facility] [address] [id number] [place] [address]- 2718 Jan, [facility] [place] [facility] [address] [id number] [place] [address]- 9767 Jan, [facility] [place] [facility] [address] [id number] [place] [address]- 7224 Jan, [facility] [place] [facility] [address] [id number] [place] [address]- 0573 Jan, [facility] [place] [facility] [address] [id number] [place] [address]- 2546 Dec, [facility] [place] [facility] [address] [id number] [place] [address]- 4354 Dec, [facility] [place] [facility] [address] [id number] [place] [address]- 1088 Nov, [facility] [place] [facility] [address] [id number] [place] [address]- 0914 Nov, [facility] [place] [facility] [address] [id number] [place] [address]- 6895 Nov, [facility] [place] [facility] [address] [id number] [place] [address]- 8698 Nov, [facility] [place] [facility] [address] [id number] [place] [address]- 4084 October, [facility] [place] [facility] [address] [id number] [place] [address]- 6375 October, [facility] [place] [facility] [address] [id number] [place] [address]- 3631 Sep, [facility] [place] [facility] [address] [id number] [place] [address]- 0247 Sep, [facility] [place] [facility] [address] [id number] [place] [address]- 6954 Sep, [facility] [place] [facility] [address] [id number] [place] [address]- 4856 Sep, [facility] [place] [facility] [address] [id number] [place] [address]- 9599 Sep, [facility] [place] [facility] [address] [id number] [place] [address]- 4135 Sep, [facility] [place] [facility] [address] [id number] [place] [address]- 1191 Aug, [facility] [place] [facility] [address] [id number], [place] [address]- 9491 Aug, [facility] [address] [id number] [place] [address]- 2095 Jul, [facility] [address] [id number] [place] 4206 Jul, [facility] [address] [facility] [id number] [place] [address]- 6851 May, [facility] [place] [facility] [address] [id number] [place] [address]- 3561 May, [facility] [address] [id number] [place] [address]- 1863 May, [facility] [address] [facility] [id number] [place] [address]- 9582 May, [facility] [address] [facility] [id number] [place] [address]- 3849 May, [facility] [address] [facility] [id number] [place] [address]- 9764 May, [facility] [address] [facility] [id number] [place] [address]- 5351 Apr, [facility] [address] [facility] [id number] [place] [address]- 4293 Apr, [facility] [address] [id number] [place] [address]- 8632 Apr, [facility] [place] [facility] [address] [facility] [id number], [place] [address]- 2548 Apr, [facility] [place] [facility] [address] [id number] [place] [address]- 6054 Apr, [facility] [place] [facility] [address] [facility] [id number] [place] [address]- 1861 Apr, [facility] [address] [facility] [id number], [place] [address]- 4391 Feb, [facility] [place] [facility] [address] [id number] [place] [address]- 5921 Feb, [facility] [address] [id number] [place] [address]- 1750 Feb, [facility] [place] [facility] [address] [id number] [place] [address]- 5972 Feb, [facility] [address] [id number] [place] [address]- 5901 Jan, [facility] [address] [id number] [place] [address]- 3695 Dec, [facility] [place] [facility] [address] [id number] [place] [address]- 3732 Dec, [facility] [address] [id number] [place] [address]- 9527 Dec, [facility] [address] [id number] [place] [address]- 6524 Dec, [facility] [address] [id number] [place] [address]- 3801 Nov, [facility] [address] [id number] [place] [address]- 6265 Nov, [facility] [address] [id number] [place] [address]- 9517 October, [facility] [address] [id number] [place] [address]- 7496 October, [facility] [address] [id number] [place] [address]- 4945 October, [facility] [place] [facility] [address] [id number] [place] [address]- 6319 October, [facility] [place] [facility] [address] [id number] [place] [address]- 1283 Sep, [facility] [place] [facility] [address] [id number] [place] [address]- 6178 Aug, [facility] [place] [facility] [address] [id number] [place] [address]- 5918 18 Aug, 2012 [facility] [place] [facility] [address] [id number] [place] [address]- 6348 Aug, [facility] [place] [facility] [address] [id number] [place] 8944 Aug, [facility] [place] [facility] [address] [id number] [place] [address]- 2376 Jul, [facility] [place] [facility] [address] [id number] [place] [address]- 9465 Jul, [facility] [place] [facility] [address] [id number] [place] [address]- 5015 Jul, [facility] [place] [facility] [address] [id number] [place] [address]- 5742 Jun, [facility] [place] [facility] [address] [id number] [place] [address]- 6204 Jun, [facility] [place] [facility] [address] [id number] [place] [address]- 7737 May, [facility] [place] [facility] [address] [id number] [place] [address]- 2545 May, [facility] [place] [facility] [address] [id number], [place] [address]- 6514 Apr, [facility] [place] [facility] [address] [id number] [place] [address]- 9397 Apr, [facility] [place] [facility] [address] [id number] [place] [address]- 4492 Apr, [facility] [place] [facility] [address] [id number] [place] [address]- 0961 Apr, [facility] [place] [facility] [address] [id number] [place] [address]- 5988 Apr, [facility] [place] [facility] [address] [id number] [place] [address]- 5873 Apr, [facility] [place] [facility] [address] [id number] [place] [address]- 9040 Mar, [facility] [place] [facility] [address] [id number] [place] [address]- 4096 Mar, [facility] [place] [facility] [address] [id number] [place] [address]- 5739 Mar, [facility] [place] [facility] [address] [id number] [place] [address]- 6401 Mar, [facility] [place] [facility] [address] [id number] [place] [address]- 9114 Mar, [facility] [place] [facility] [address] [id number] [place] [address]- 0294 Mar, [facility] [place] [facility] [address] [id number] [place] [address]- 4287 Mar, [facility] [place] [facility] [address] [id number] [place] [address]- 3710 Feb, [facility] [place] [facility] [address] [id number] [place] [address]- 4015 Feb, [facility] [place] [facility] [address] [id number] [place] [address]- 8137 Jan, [facility] [place] [facility] [address] [id number] [place] [address]- 6041 Dec, [facility] [place] [facility] [address] [id number] [place] [address]- 0407 Dec, [facility] [place] [facility] [address] [id number] [place] [address]- 2930 Nov, [facility] [place] [facility] [address] [id number] [place] [address] 2546 Nov, [facility] [place] [facility] [address] [id number] [place] [address]- 4679 Nov, [facility] [place] [facility] [address] [id number] [place] [address]- 3807 October, [facility] [place] [facility] [address] [id number] [place] [address]- 7683 20 Sep, 2011 [facility] [place] [facility] [address] [id number] [place] [address]- 9005 16 Sep, 2011 [facility] [place] [facility] [address] [id number] [place] [address]- 8962 04 Sep, 2011 [facility] [place] [facility] [address] [id number] [place] [address]- 3941 26 Aug, 2011 [facility] [place] [facility] [address] [id number] [place] [address]- 4324 21 Aug, 2011 [facility] [place] [facility] [address] [id number] [place] [address]- 7134 20 Aug, 2011 [facility] [place] [facility] [address] [id number] [place] [address]- 1860 15 Aug, 2011 [facility] [place] [facility] [address] [id number] [place] [address]- 0129 14 Aug, 2011 [facility] [place] [facility] [address] [id number] [place] [address]- 4449 12 Aug, 2011 [facility] [place] [facility] [address] [id number] [place] [address]- 1073 08 Aug, 2011 [facility] [place] [facility] [address] [id number] [place] [address]- 1031 05 Aug, 2011 [facility] [place] [facility] [address] [id number] [place] [address]- 8670 Jul, [facility] [place] [facility] [address] [id number] [place] [address]- 9460 Jul, [facility] [place] [facility] [address] [id number] [place] [address]- 3251 Jul, [facility] [place] [facility] [address] [id number] [place] [address]- 2579 15 Jul, 2011 [facility] [address] [id number] [place] [address]- 1076 06 Jul, 2011 [facility] [address] [id number] [place] [address] 2546 03 Jul, 2011 [facility] [address] [id number] [place] [address]- 4020 27 Jun, 2011 [facility] [address] [id number] [place] [address] 2545 Jun, [facility] [address] [id number] [place] [address], [place] [address]- 6003 Jun, [facility] [address] [id number] [place] [address]- 1612 Jun, [facility] [address] [id number] [place] [address]- 9532 29 May, 2011 [facility] [address] [id number] [place] [address]- 8036 May, [facility] [address] [facility] [id number] [place] [address] May, [facility] [address] [facility] [id number] [place] [address] 12 May, 2011 [facility] [address] [id number] [place] [address] May, [facility] [address] [id number] [place] [address] 30 Apr, 2011 [facility] [place] [facility] [address] [id number] [place] [address] 14 Apr, 2011 [facility] [place] [facility] [address] [id number] [place] [address] 31 Mar, 2011 [facility] [address] [id number] [place] [address] Feb, [facility] [address] [id number] [address] Feb, [facility] [id number], [place] [address] May, [facility] [address] [facility] [id number], [place] [address] Apr, [facility] [address] [facility] [id number], [place] [address] Apr, [facility] [id number], [place] [address] Apr, [facility] [address] [facility] [id number], [place] [address] Apr, [facility] [address], [place] [address] Apr, [facility] [address], [place] [address] Apr, [facility] [address], [place] [address] Mar, [facility] [address], [place] [address] Mar, [facility] [address] [id number], [place] [address] Sep, IMMUNIZATIONS No Known Immunizations SOCIAL HISTORY Never Assessed REASON FOR VISIT Hospital admit/DC PLAN OF CARE VITAL SIGNS MEDICATIONS Medication Instructions Dosage Frequency Start Date End Date Duration Status Seroquel 300 MG Orally Once a day 1 tablet at bedtime 24h 14 Apr, 2016 30 days Active BusPIRone HCl 10 MG Orally Twice a day 1 tablet 12h 30 days Active Lovastatin 20 mg Orally Once a day 1 tablet with a meal 24h Active Lisinopril 10 mg Orally Once a day 1 tablet 24h Active Pantoprazole Sodium 40 MG Orally Once a day 1 tablet 24h Active Metronidazole 500 mg Orally 3 times a day 1 tablet 8h 23 Jul, 2017Jul Active RESULTS No Results PROCEDURES No Known [...]
--- OUTSIDE RECORDS SUMMARY | 2018-06-23 23:26 | XMS REPORT ---
Author Author JUSTIN SUMNER [facility] Address [address] [place] [address] Care Team Providers Care Customer Service Advocate Name Role Phone BURAK JUSTIN Unavailable PROBLEMS Type Condition ICD9-CM Code WUB07-DH Code Onset Dates Condition Status SNOMED Code Problem Mood disorder F39 Active 70180578 Problem Dementia without behavioral disturbance, unspecified dementia type F03.90 Active 67061205 Problem Hypertension, benign I10 Active 36229026 Problem Cognitive dysfunction F09 Active 020066377 Problem 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 250655385 Problem Anxiety disorder, unspecified F41.9 Active 286496032 Problem Major depression F32.9 Active 551006803 ALLERGIES No Information ENCOUNTERS Encounter Location Date Diagnosis [place] [id number] [place] [address] 72388- 8553 Jan, [email or web address] [address] [place] [address] October, Encounter for examination for admission to half-way Z02.2 ; Tardive dyskinesia G24.01 ; Major depression F32.9 ; Anxiety disorder, unspecified F41.9 ; Cognitive dysfunction F09 and Dementia without behavioral disturbance, unspecified dementia type F03.90 [place] [address], [place] [address] October, [place] [id number] [place] [address] 70057- 4256 October, [place] [id number] [place] [address] 89216- 4155 Sep, Acute deep vein thrombosis (DVT) of proximal vein of left lower extremity I82.4Y2 [place] [id number] [place] [address] 17299- 1811 Sep, Mood disorder F39 and Dementia associated with other underlying disease without behavioral disturbance F02.80 [facility] [id number] [place] [address] 56959- 9201 Sep, Mood disorder F39 and Acute deep vein thrombosis (DVT) of proximal vein of left lower extremity I82.4Y2 [facility] [id number] [place] [address] 47009- 7711 Sep, Via [facility] [employer] [address] [place] [id number] Sep, History of DVT (deep vein thrombosis) Z86.718 and Dementia F03.90 [facility] [id number] [place] [address] 22219- 1069 Sep, Mood disorder F39 and Dementia without behavioral disturbance, unspecified dementia type F03.90 [facility] [id number] [place] [address] 07195- 0805 Aug, [facility] [id number] [place] [address] 82817- 3122 Aug, [facility] [place] [id number] [place] [address] [id number] Aug, [facility] [id number] [place] [address] 91422- 5971 Aug, [facility] [id number] [place] [address] 31541- 4204 Aug, Acute deep vein thrombosis (DVT) of proximal vein of left lower extremity I82.4Y2 [address] [facility] [employer] [address] [place] [id number] Aug, Left leg swelling M79.89 [facility] [id number] [place] [address] 14648- 5607 Aug, Mood disorder F39 and Dementia without behavioral disturbance, unspecified dementia type F03.90 [facility] [id number] [place] [address] 26437- 1326 Jul, [facility] [id number] [place] [address] 74486- 7632 Jul, Dementia without behavioral disturbance, unspecified dementia type F03.90 and Mood disorder F39 Via [facility] [address] [place] [id number] Jul, Encounter for examination for admission to half-way Z02.2 ; Rectal bleed K62.5 ; Dementia without behavioral disturbance, unspecified dementia type F03.90 ; Hypertension, benign I10 ; Edema R60.9 and Major depression F32.9 [facility] [place] [id number] [place] [address] [id number] Jul, [facility] [id number] [place] [address] 70651- 3851 Apr, Dementia without behavioral disturbance, unspecified dementia type F03.90 and Mood disorder F39 [facility] [id number] [place] [address] 08219- 2223 Apr, [facility] [id number] [place] [address] 48618- 2479 Feb, Hypertension, benign I10 [facility] [id number] [place] [address] 30935- 6320 Dec, Major depression F32.9 ; Anxiety disorder, unspecified F41.9 ; Cognitive dysfunction F09 and Dementia without behavioral disturbance, unspecified dementia type F03.90 [facility] [id number] [place] [address] 78283- 4276 October, Hypertension, benign I10 [facility] [id number] [place] [address] 89670- 1917 Sep, Major depression F32.9 ; Anxiety disorder, unspecified F41.9 and Cognitive dysfunction F09 [facility] [id number] [place] [address] 27060- 3314 Apr, Major depression F32.9 and Cognitive dysfunction F09 [facility] [id number] [place] [address] 07271- 7470 Jan, Anxiety disorder, unspecified F41.9 ; Major depression F32.9 and Cognitive dysfunction F09 [place] [id number] [place] [address] 21011- 9886 Jan, [facility] [id number] [place] [address] 83685- 4885 Dec, [place] [id number] [place] [address] 03147- 0576 Dec, [place] [id number] [place] [address] 04588- 6452 Nov, Anxiety disorder, unspecified F41.9 ; Major depression F32.9 and Cognitive dysfunction F09 [place] [id number] [place] [address] 20642- 3187 October, Dementia without behavioral disturbance, unspecified dementia type F03.90 [place] [id number] [place] [address] 81429- 1619 Sep, Cognitive dysfunction F09 and Edema R60.9 [place] [id number] [place] [address] 76734- 6230 Sep, Cognitive dysfunction F09 and Edema R60.9 [place] [id number] [place] [address] 18918- 9042 Aug, Self-care deficit for medication administration R41.89 ; Self-care deficit in patient living alone R46.89 and Cognitive dysfunction F09 [place] [id number] [place] [address] 82289- 3925 Aug, 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 [id number] [place] [address] 02168- 2276 Jun, [facility] [id number] [place] [address] 41672- 8778 May, [facility] [id number] [place] [address] 86234- 0168 May, Nausea R11.0 [facility] [id number] [place] [address] 94112- 9486 Apr, [facility] [id number] [place] [address] 37577- 8618 Mar, Major depression F32.9 [facility] [id number] [place] [address] 59726- 9430 Mar, Encounter for immunization Z23 [facility] [id number] [place] [address] 35144- 0359 Mar, Major depression F32.9 and Anxiety disorder, unspecified F41.9 [facility] [id number] [place] [address] 68456- 7896 Dec, Major depression, chronic 296.20 and Anxiety disorder, unspecified 300.00 [facility] [id number] [place] [address] 04728- 5013 October, Hypertension 401.9 [facility] [id number] [place] [address] 00200- 6650 Sep, [facility] [id number] [place] [address] 41463- 5210 Sep, [facility] [id number] [place] [address] 46176- 9418 Jul, [facility] [id number] [place] [address] 88469- 3294 Jul, [facility] [address] [address] 9925 Jul, [facility] [address] [id number] [place] [address]- 8243 May, [facility] [place] [facility] [address] [id number] [place] [address]- 4567 May, [facility] [place] [facility] [address] [id number] [place] [address]- 2174 May, [facility] [place] [facility] [address] [id number] [place] [address]- 2826 May, [facility] [place] [facility] [address] [id number] [place] [address]- 9394 Apr, [facility] [place] [facility] [address] [id number] [place] [address]- 5724 Apr, [facility] [place] [facility] [address] [id number] [place] [address]- 1540 Feb, [facility] [place] [facility] [address] [id number] [place] [address]- 9353 Feb, [facility] [place] [facility] [address] [id number] [place] [address]- 1213 Jan, [facility] [place] [facility] [address] [id number] [place] [address]- 5359 Jan, [facility] [place] [facility] [address] [id number] [place] [address]- 4051 Jan, [facility] [place] [facility] [address] [id number] [place] [address]- 3613 Jan, [facility] [place] [facility] [address] [id number] [place] [address]- 6309 Dec, [facility] [place] [facility] [address] [id number] [place] [address]- 7642 Dec, [facility] [place] [facility] [address] [id number] [place] [address]- 1228 Nov, [facility] [place] [facility] [address] [id number] [place] [address]- 0718 Nov, [facility] [place] [facility] [address] [id number] [place] [address]- 4531 Nov, [facility] [place] [facility] [address] [id number] [place] [address]- 6673 Nov, [facility] [place] [facility] [address] [id number] [place] [address]- 9206 October, [facility] [place] [facility] [address] [id number] [place] [address]- 2542 October, [facility] [place] [facility] [address] [id number] [place] [address]- 9956 Sep, [facility] [place] [facility] [address] [id number] [place] [address]- 3727 Sep, [facility] [place] [facility] [address] [id number] [place] [address]- 2561 Sep, [facility] [place] [facility] [address] [id number] [place] [address]- 2818 Sep, [facility] [place] [facility] [address] [id number] [place] [address]- 9125 Sep, [facility] [place] [facility] [address] [id number] [place] [address]- 8513 Sep, [facility] [place] [facility] [address] [id number], [place] [address]- 9895 Aug, [facility] [place] [facility] [address] [id number] [place] [address]- 8691 Aug, [facility] [place] [facility] [address] [id number] [place] [address]- 4634 Jul, [facility] [place] [facility] [address] [id number] [place] [address]- 2930 Jul, [facility] [place] [facility] [address] [id number], [place] [address]- 9238 May, [facility] [address] [id number] [place] [address]- 5474 May, [facility] [address] [id number] [place] [address]- 6543 May, [facility] [address] [facility] [id number] [place] [address]- 5533 May, [facility] [address] [id number] [place] [address]- 8873 May, [facility] [address] [facility] [id number] [place] [address]- 7427 May, [facility] [address] [facility] [id number] [place] [address]- 3022 Apr, [facility] [address], [place] [address]- 9915 Apr, [facility] [address] [id number] [place] [address]- 8219 Apr, [facility] [id number] [address]- 9980 Apr, [facility] [id number] [place] [address]- 6720 Apr, [facility] [address] [facility] [id number], [place] [address]- 0385 Apr, [facility] [place] [facility] [address] [id number], [place] [address]- 5868 Feb, [facility] [place] [facility] [address] [id number] [place] [address]- 3878 23 Feb, 2013 [facility] [place] [facility] [address] [facility] [id number] [place] [address]- 7867 18 Feb, 2013 [facility] [place] [facility] [address] [facility] [id number], [place] [address]- 3506 03 Feb, 2013 [facility] [place] [facility] [address] [id number] [place] [address]- 2430 Jan, [facility] [place] [facility] [address] [id number] [place] [address]- 9735 Dec, [facility] [place] [facility] [address] [id number] [place] [address] 2546 Dec, [facility] [place] [facility] [address] [id number] [place] [address]- 5816 Dec, [facility] [place] [facility] [address] [id number] [place] [address]- 9129 Dec, [facility] [place] [facility] [address] [id number] [place] [address]- 2403 Nov, [facility] [place] [facility] [address] [id number] [place] [address] 2546 Nov, [facility] [place] [facility] [address] [id number] [place] [address]- 9095 October, [facility] [place] [facility] [address] [id number] [place] [address]- 9822 October, [facility] [place] [facility] [address] [id number] [place] [address]- 0981 October, [facility] [place] [facility] [address] [id number] [place] [address]- 1137 October, [facility] [place] [facility] [address] [id number] [place] [address]- 4231 Sep, [facility] [place] [facility] [address] [id number] [place] [address]- 2540 Aug, [facility] [place] [facility] [address] [id number] [place] [address]- 5126 18 Aug, 2012 [facility] [place] [facility] [address] [id number] [place] [address]- 2546 15 Aug, 2012 [facility] [place] [facility] [address] [id number] [place] [address]- 1439 Aug, [facility] [place] [facility] [address] [id number] [place] [address]- 5819 Jul, [facility] [place] [facility] [address] [id number] [place] [address]- 3007 Jul, [facility] [place] [facility] [address] [facility] [id number] [place] [address]- 9387 Jul, [facility] [place] [facility] [address] [id number] [place] [address]- 9169 Jun, [facility] [place] [facility] [address] [id number] [place] 8477 Jun, [facility] [place] [facility] [address] [facility] [id number] [place] [address]- 8025 May, [facility] [place] [facility] [address] [facility] [id number] [place] [address]- 7562 May, [facility] [place] [facility] [address] [id number] [place] [address]- 3448 Apr, [facility] [place] [facility] [address] [id number] [place] [address]- 3556 Apr, [facility] [place] [facility] [address] [facility] [id number] [place] [address]- 8602 Apr, [facility] [place] [facility] [address] [facility] [id number], [place] [address]- 2759 Apr, [facility] [place] [facility] [address] [id number], [place] [address]- 8325 Apr, [facility] [place] [facility] [address] [id number], [place] [address]- 9724 Apr, [facility] [place] [facility] [address] [facility] [id number]- 9392 Mar, [facility] [place] [facility] [address] [facility] [id number] [place] 1929 Mar, [facility] [place] [facility] [address] [id number] [place] [address]- 1967 Mar, [facility] [address] [id number] [place] [address]- 3972 Mar, [facility] [place] [facility] [address] [id number] [place] [address]- 9133 Mar, [facility] [address] [id number] [place] [address]- 1794 Mar, [facility] [place] [facility] [address] [id number] [place] [address]- 4010 Mar, [facility] [address] [id number] [place] [address]- 6001 Feb, [facility] [place] [facility] [address] [id number] [place] [address]- 7350 Feb, [facility] [place] [facility] [address] [id number] [place] [address]- 2352 Jan, [facility] [place] [facility] [address] [id number] [place] [address]- 5407 Dec, [facility] [place] [facility] [address] [id number] [place] [address]- 2137 Dec, [facility] [address] [id number] [place] [address]- 4291 Nov, [facility] [place] [facility] [address] [id number] [place] [address]- 4803 Nov, [facility] [place] [facility] [address] [id number] [place] [address]- 3650 Nov, [facility] [place] [facility] [address] [id number] [place] [address]- 2543 October, [facility] [place] [facility] [address] [id number] [place] [address]- 3066 Sep, [facility] [place] [facility] [address] [id number] [place] [address]- 5659 16 Sep, 2011 [facility] [address] [id number] [place] [address]- 1298 04 Sep, 2011 [facility] [place] [facility] [address] [id number] [place] [address]- 7596 26 Aug, 2011 [facility] [place] [facility] [address] [id number] [place] [address]- 7016 21 Aug, 2011 [facility] [place] [facility] [address] [id number] [place] [address]- 8966 20 Aug, 2011 [facility] [place] [facility] [address] [id number] [place] [address]- 2916 15 Aug, 2011 [facility] [place] [facility] [address] [id number] [place] [address]- 3626 14 Aug, 2011 [facility] [place] [facility] [address] [id number] [place] [address]- 8056 Aug, [facility] [place] [facility] [address] [id number] [place] [address]- 8576 08 Aug, 2011 [facility] [place] [facility] [address] [id number] [place] [address]- 6468 05 Aug, 2011 [facility] [place] [facility] [address] [id number] [place] [address]- 9206 27 Jul, 2011 [facility] [place] [facility] [address] [id number] [place] [address]- 7396 Jul, [facility] [place] [facility] [address] [id number] [place] [address]- 8116 20 Jul, 2011 [facility] [place] [facility] [address] [id number] [place] [address]- 9346 15 Jul, 2011 [facility] [place] [facility] [address] [id number] [place] [address]- 8266 06 Jul, 2011 [facility] [place] [facility] [address] [id number] [place] [address]- 5806 03 Jul, 2011 [facility] [place] [facility] [address] [id number] [place] [address]- 8031 27 Jun, 2011 [facility] [address] [id number] [place] [address]- 5667 10 Jun, 2011 [facility] [place] [facility] [address] [id number] [place] [address]- 4095 10 Jun, 2011 [facility] [address] [id number] [place] [address]- 3533 02 Jun, 2011 [facility] [place] [facility] [address] [id number] [place] [address]- 6257 29 May, 2011 [facility] [address] [id number] [place] [address]- 1794 28 May, 2011 [facility] [place] [facility] [address] [id number] [place] [address]- 9392 May, [facility] [address] [id number] [place] [address]- 6533 May, [facility] [address] [id number] [place] [address] May, [facility] [place] [facility] [address] [id number] [place] [address] 30 Apr, 2011 [facility] [address] [id number] [place] [address] 14 Apr, 2011 [facility] [place] [facility] [address] [id number] [place] [address] 31 Mar, 2011 [facility] [place] [facility] [address] [id number] [place] [address] 15 Feb, 2011 [facility] [place] [facility] [address] [id number] [place] [address] 12 Feb, 2011 [facility] [place] [facility] [address] [id number] [place] [address] 21 May, 2010 [facility] [place] [facility] [address] [id number] [place] [address] Apr, [facility] [address] [id number] [address] Apr, [facility] [id number] [place] [address] Apr, [facility] [id number] [address] Apr, [facility] [id number] [place] [address] Apr, [facility] [id number] [place] [address] Apr, [facility] [id number] [place] [address] Mar, [facility] [id number] [place] [address] Mar, [facility] [id number] [place] [address] Sep, IMMUNIZATIONS No Known Immunizations SOCIAL HISTORY Never Assessed REASON FOR VISIT med refill PLAN OF CARE VITAL SIGNS MEDICATIONS Medication Instructions Dosage Frequency Start Date End Date Duration Status BusPIRone HCl 10 mg Orally Twice a day 1 tablet 12h 30 days Active Seroquel 300 MG Orally Once a day 1 tablet at bedtime 24h 14 Apr, 2016 30 days Active RESULTS No Results PROCEDURES [...] History Ischemic colitis, dementia, generalized debility-[facility] 07/30/17
--- OUTSIDE RECORDS SUMMARY | 2018-06-23 23:28 | XMS REPORT ---
Author Author GRACE WHIT [facility] Address [address] [place] [address] Care Team Providers Care Return To Vendor Name Role Phone SAADGERRI WUA Unavailable PROBLEMS Type Condition ICD9-CM Code QAF21-CO Code Onset Dates Condition Status SNOMED Code Problem Mood disorder F39 Active 75855671 Problem Dementia without behavioral disturbance, unspecified dementia type F03.90 Active 74043924 Problem Hypertension, benign I10 Active 41626236 Problem Cognitive dysfunction F09 Active 133255802 Problem 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 297761490 Problem Anxiety disorder, unspecified F41.9 Active 905058578 Problem Major depression F32.9 Active 637368506 ALLERGIES Substance Reaction Event Type Date Status Stadol hives Drug Allergy Apr, Active Morphine Sulfate hives Drug Allergy Apr, Active Iodinated Contrast Media - Iv Dye Unknown Non Drug Allergy Apr, Active ENCOUNTERS Encounter Location Date Diagnosis [facility] [id number] [place] [address]40- [address]37 Jan, [facility] [address] [place] [address] October, Encounter for examination for admission to half-way Z02.2 ; Tardive dyskinesia G24.01 ; Major depression F32.9 ; Anxiety disorder, unspecified F41.9 ; Cognitive dysfunction F09 and Dementia without behavioral disturbance, unspecified dementia type F03.90 [facility] [address] [id number] [address] October, [facility] [address], [place] [address] October, [facility] [id number] [place] [address]955- 0228 Sep, Acute deep vein thrombosis (DVT) of proximal vein of left lower extremity I82.4Y2 [facility] [address] [facility] [id number] [place] [address] 00986- 2815 Sep, Mood disorder F39 and Dementia associated with other underlying disease without behavioral disturbance F02.80 [facility] [address] [id number] [address] Sep, Mood disorder F39 and Acute deep vein thrombosis (DVT) of proximal vein of left lower extremity I82.4Y2 [facility] [address] [facility] [id number] [address] Sep, [facility] [employer] [facility] [address] [place] [id number] Sep, History of DVT (deep vein thrombosis) Z86.718 and Dementia F03.90 [facility] [id number] [place] [address] 30448- 8977 Sep, Mood disorder F39 and Dementia without behavioral disturbance, unspecified dementia type F03.90 [facility] [id number] [place] [address] 80724- 8390 Aug, [facility] [id number] [place] [address]- 7648 Aug, [facility] [id number] [place] [address] [id number] Aug, [facility] [id number] [place] [address] 70143- 4814 Aug, [facility] [id number] [place] [address] 08577- 0907 Aug, Acute deep vein thrombosis (DVT) of proximal vein of left lower extremity I82.4Y2 [facility] [address] [place] [id number] Aug, Left leg swelling M79.89 [facility] [id number] [place] [address] 80430- 6444 Aug, Mood disorder F39 and Dementia without behavioral disturbance, unspecified dementia type F03.90 [facility] [address] [place] [address] 06697- 6376 Jul, [facility] [id number] [place] [address] 15661- 9335 Jul, Dementia without behavioral disturbance, unspecified dementia type F03.90 and Mood disorder F39 [facility] [address] [place] [id number] Jul, Encounter for examination for admission to half-way Z02.2 ; Rectal bleed K62.5 ; Dementia without behavioral disturbance, unspecified dementia type F03.90 ; Hypertension, benign I10 ; Edema R60.9 and Major depression F32.9 [facility] [id number] [place] [address] [id number] Jul, [facility] [id number] [place] [address] 30329- 7191 Apr, Dementia without behavioral disturbance, unspecified dementia type F03.90 and Mood disorder F39 [facility] [id number] [place] [address] 17526- 7068 Apr, [facility] [id number] [place] [address] 41247- 3222 Feb, Hypertension, benign I10 [facility] [id number] [place] [address] 40972- 6201 Dec, Major depression F32.9 ; Anxiety disorder, unspecified F41.9 ; Cognitive dysfunction F09 and Dementia without behavioral disturbance, unspecified dementia type F03.90 [facility] [address] [place] [address] 54662- 0834 October, Hypertension, benign I10 [facility] [id number] [place] [address] 72900- 3608 Sep, Major depression F32.9 ; Anxiety disorder, unspecified F41.9 and Cognitive dysfunction F09 [facility] [id number] [place] [address] 98576- 1986 Apr, Major depression F32.9 and Cognitive dysfunction F09 [place] [id number] [place] [address] 94057- 1076 Jan, Anxiety disorder, unspecified F41.9 ; Major depression F32.9 and Cognitive dysfunction F09 [place] [id number] [place] [address] 76174- 7860 Jan, [place] [address] [address]270 Dec, [place] [address] [address]- 8669 Dec, [place] [address] [id number]- [address] Nov, Anxiety disorder, unspecified F41.9 ; Major depression F32.9 and Cognitive dysfunction F09 [place] [address] [address]- 6306 October, Dementia without behavioral disturbance, unspecified dementia type F03.90 [place] [address] [id number]- [address]23 Sep, Cognitive dysfunction F09 and Edema R60.9 [place] [id number] [place] [address] 30514- 3931 Sep, Cognitive dysfunction F09 and Edema R60.9 [place] [id number] [place] [address] 62084- 9594 Aug, Self-care deficit for medication administration R41.89 ; Self-care deficit in patient living alone R46.89 and Cognitive dysfunction F09 [place] [id number] [place] [address] Aug, 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 and Unspecified intracranial injury without loss of consciousness, sequela S06.9X0S [place] [id number] [place] [id number] Jul, [facility] [id number] [place] [address] 02924- 3369 Jun, Anxiety disorder, unspecified F41.9 and Major depression F32.9 [facility] [id number] [place] [address] 81324- 8617 Jun, [facility] [id number] [place] [address] 84971- 7447 May, [facility] [id number] [place] [address] 58124- 0876 May, Nausea R11.0 [facility] [id number] [place] [address] 98433- 8726 Apr, [facility] [id number] [place] [address] 51547- 3749 Mar, Major depression F32.9 [facility] [id number] [place] [address] 20117- 6153 Mar, Encounter for immunization Z23 [facility] [id number] [place] [address] 79268- 2819 Mar, Major depression F32.9 and Anxiety disorder, unspecified F41.9 [facility] [id number] [place] [address] 10187- 4647 Dec, Major depression, chronic 296.20 and Anxiety disorder, unspecified 300.00 [facility] [id number] [place] [address] 99619- 8147 October, Hypertension 401.9 [facility] [id number] [place] [address] 16873- 7288 Sep, [facility] [id number] [place] [address] 46179- 5378 Sep, [facility] [id number] [place] [address] 01984- 7455 Jul, [facility] [place] [facility] [address] [id number] [place] [address]- 1233 Jul, [facility] [place] [facility] [address] [id number] [place] [address]- 1507 Jul, [facility] [place] [facility] [address] [id number] [place] [address]- 7821 May, [facility] [place] [facility] [address] [id number] [place] [address]- 8919 May, [facility] [place] [facility] [address] [id number] [place] [address]- 7665 May, [facility] [place] [facility] [address] [id number] [place] [address]- 9815 May, [facility] [place] [facility] [address] [id number] [place] [address]- 3237 Apr, [facility] [place] [facility] [address] [id number] [place] [address]- 3202 Apr, [facility] [place] [facility] [address] [id number] [place] [address]- 7406 Feb, [facility] [place] [facility] [address] [id number] [place] [address]- 8625 Feb, [facility] [place] [facility] [address] [id number] [place] [address]- 0930 Jan, [facility] [place] [facility] [address] [id number], [place] [address]- 8489 Jan, [facility] [place] [facility] [address] [id number] [place] [address]- 6940 Jan, [facility] [place] [facility] [address] [id number] [place] [address]- 2806 Jan, [facility] [place] [facility] [address] [id number], [place] [address]- 5298 Dec, [facility] [place] [facility] [address] [id number], [place] [address]- 0786 Dec, [facility] [place] [facility] [address] [id number] [place] [address]- 6695 Nov, [facility] [place] [facility] [address] [id number] [place] [address]- 9797 Nov, [facility] [place] [facility] [address] [id number] [place] [address]- 1794 Nov, [facility] [place] [facility] [address] [id number] [place] [address]- 5432 Nov, [facility] [place] [facility] [address] [id number] [place] [address]- 4497 October, [facility] [place] [facility] [address] [id number] [place] [address]- 0892 October, [facility] [place] [facility] [address] [id number] [place] [address]- 3364 Sep, [facility] [place] [facility] [address] [id number] [place] [address]- 2602 Sep, [facility] [place] [facility] [address] [id number] [place] [address]- 2697 Sep, [facility] [place] [facility] [address] [id number] [place] [address]- 2214 Sep, [facility] [place] [facility] [address] [id number] [place] [address]- 9506 Sep, [facility] [place] [facility] [address] [id number] [place] [address]- 9525 Sep, [facility] [place] [facility] [address] [id number] [place] [address]- 2015 Aug, [facility] [place] [facility] [address] [id number] [place] [address]- 1709 Aug, [facility] [place] [facility] [address] [facility] [id number] [place] [address]- 2009 Jul, [facility] [place] [facility] [address] [id number] [place] [address]- 4014 Jul, [facility] [place] [facility] [address] [id number] [place] [address]- 5316 May, [facility] [place] [facility] [address] [id number] [place] [address]- 1716 May, [facility] [place] [facility] [address] [id number] [place] [address]- 3696 May, [facility] [place] [facility] [address] [id number] [place] [address] 2544 May, [facility] [place] [facility] [address] [id number] [place] [address]- 2193 May, [facility] [place] [facility] [address] [id number] [place] [address]- 6289 May, [facility] [place] [facility] [address] [id number] [place] [address]- 4229 Apr, [facility] [place] [facility] [address] [id number] [place] [address]- 8808 Apr, [facility] [place] [facility] [address] [id number] [place] [address]- 9658 Apr, [facility] [place] [facility] [address] [id number] [place] [address]- 7133 Apr, [facility] [place] [facility] [address] [id number] [place] [address]- 5389 Apr, [facility] [place] [facility] [address] [id number] [place] [address]- 6296 Apr, [facility] [place] [facility] [address] [id number] [place] [address]- 7948 Feb, [facility] [place] [facility] [address] [id number] [place] 4163 23 Feb, 2013 [facility] [place] [facility] [address] [id number] [place] [address]- 0108 Feb, [facility] [address] [id number] [place] [address] 2544 Feb, [facility] [address] [id number] [place] [address]- 2176 Jan, [facility] [address] [id number] [place] [address] 2549 Dec, [facility] [place] [facility] [address] [id number] [place] [address]- 2540 Dec, [facility] [address] [id number] [place] [address] 2547 Dec, [facility] [address] [id number] [place] [address] 2546 Dec, [facility] [address] [id number] [place] [address]- 9997 Nov, [facility] [place] [facility] [address] [id number] [place] [address] 2549 Nov, [facility] [address] [id number] [place] [address]- 3317 October, [facility] [place] [facility] [address] [id number] [place] [address]- 2936 October, [facility] [address] [id number] [place] [address]- 2546 October, [facility] [place] [facility] [address] [id number], [place] [address]- 2546 October, [facility] [place] [facility] [address] [id number] [place] [address]- 2546 Sep, [facility] [place] [facility] [address] [id number] [place] [address]- 2546 Aug, [facility] [place] [facility] [address] [id number] [place] [address]- 2546 Aug, [facility] [place] [facility] [address] [id number] [place] [address]- 4651 15 Aug, 2012 [facility] [address] [id number] [place] [address]- 1812 Aug, [facility] [place] [facility] [address] [id number] [place] [address]- 0856 26 Jul, 2012 [facility] [address] [id number] [place] [address]- 5906 Jul, [facility] [place] [facility] [address] [id number] [place] [address]- 7787 Jul, [facility] [address] [id number] [place] [address]- 5790 Jun, [facility] [address] [id number] [place] [address]- 5307 Jun, [facility] [address] [id number] [place] [address]- 1292 May, [facility] [address] [id number] [place] [address]- 3236 May, [facility] [address] [facility] [id number] [place] [address]- 9119 Apr, [facility] [address] [facility] [id number] [place] [address]- 1245 Apr, [facility] [place] [facility] [address] [id number] [place] [address]- 2814 Apr, [facility] [place] [facility] [address] [id number] [place] [address]- 4756 Apr, [facility] [place] [facility] [address] [id number] [place] [address]- 4324 Apr, [facility] [place] [facility] [address] [id number] [place] 3965 Apr, [facility] [place] [facility] [address] [id number] [place] [address]- 0528 Mar, [facility] [place] [facility] [address] [id number] [place] [address]- 4875 Mar, [facility] [place] [facility] [address] [id number] [place] [address]- 5434 Mar, [facility] [place] [facility] [address] [id number] [place] [address]- 9863 Mar, [facility] [place] [facility] [address] [id number] [place] [address]- 8271 Mar, [facility] [place] [facility] [address] [id number] [place] [address]- 4493 Mar, [facility] [place] [facility] [address] [id number] [place] [address]- 2569 Mar, [facility] [place] [facility] [address] [id number] [place] [address]- 3729 Feb, [facility] [place] [facility] [address] [id number] [place] [address]- 9702 Feb, [facility] [place] [facility] [address] [id number] [place] [address]- 5916 Jan, [facility] [place] [facility] [address] [id number], [place] [address]- 6955 Dec, [facility] [place] [facility] [address] [id number], [place] [address]- 8020 Dec, [facility] [place] [facility] [address] [id number], [place] [address]- 5358 Nov, [facility] [place] [facility] [address] [id number] [place] [address]- 2360 Nov, [facility] [place] [facility] [address] [id number], [place] [address]- 3330 Nov, [facility] [place] [facility] [address] [id number], [place] [address]- 5537 October, [facility] [place] [facility] [address] [id number], [place] [address]- 7426 20 Sep, 2011 [facility] [address] [id number] [place] [address]- 1488 16 Sep, 2011 [facility] [place] [facility] [address] [id number] [place] [address]- 2026 04 Sep, 2011 [facility] [place] [facility] [address] [facility] [id number] [place] [address]- 5906 26 Aug, 2011 [facility] [place] [facility] [address] [id number] [place] [address]- 9960 21 Aug, 2011 [facility] [place] [facility] [address] [id number] [place] [address]- 2623 20 Aug, 2011 [facility] [place] [facility] [address] [facility] [id number] [place] [address]- 1102 15 Aug, 2011 [facility] [id number] [place] [address]- 0799 14 Aug, 2011 [facility] [place] [facility] [address] [facility] [id number] [place] [address]- 5643 12 Aug, 2011 [facility] [place] [facility] [id number] [place] [address]- 9005 08 Aug, 2011 [facility] [id number] [place] [address]- 7439 05 Aug, 2011 [facility] [place] [facility] [address] [facility] [id number] [place] [address]- 9447 27 Jul, 2011 [facility] [place] [facility] [address] [facility] [id number] [place] [address]- 8858 22 Jul, 2011 [facility] [place] [facility] [address] [id number] [place] [address]- 9047 20 Jul, 2011 [facility] [place] [facility] [address] [facility] [id number] [place] 7876 15 Jul, 2011 [facility] [place] [facility] [address] [facility] [id number] [place] [address]- 8556 06 Jul, 2011 [facility] [place] [facility] [address] [id number] [place] [address]- 0971 Jul, [facility] [place] [facility] [address] [id number] [place] [address]- 2024 Jun, [facility] [place] [facility] [address] [id number] [place] [address]- 1345 Jun, [facility] [place] [facility] [address] [id number] [place] [address]- 6721 Jun, [facility] [address] [id number] [place] 2348 Jun, [facility] [place] [facility] [address] [id number] [place] [address]- 6975 May, [facility] [place] [facility] [address] [id number] [place] [address]- 5482 May, [facility] [address] [id number] [place] [address]- 4946 May, [facility] [place] [facility] [address] [id number] [place] [address]- 2513 May, [facility] [place] [facility] [address] [id number] [place] [address]- 4822 May, [facility] [place] [facility] [address] [id number] [place] [address]- 7185 30 Apr, 2011 [facility] [place] [facility] [address] [id number], [place] [address]- 2760 14 Apr, 2011 [facility] [place] [facility] [address] [id number] [place] [address] 31 Mar, 2011 [facility] [place] [facility] [address] [id number] [place] [address] 15 Feb, 2011 [facility] [place] [facility] [address] [id number] [place] [address] 12 Feb, 2011 [facility] [place] [facility] [address] [id number], [place] [address] May, [facility] [id number] [address] Apr, [facility] [id number], [place] [address] Apr, [facility] [id number] [place] [address] Apr, [facility] [id number] [address] Apr, [facility] [id number], [place] [address] Apr, [facility] [id number], [place] [address] Apr, [facility] [id number], [place] [address] Mar, [facility] [id number], [place] [address] Mar, [facility] [id number], [place] [address] Sep, IMMUNIZATIONS No Known Immunizations SOCIAL HISTORY Never Assessed REASON FOR VISIT BH intake--Phil Castorena MA PLAN OF CARE Activity Details Follow Up 2 Months Reason: VITAL SIGNS Height 68.25 in 2017-05-07 Weight 193.5 lbs 2017-05-07 Heart Rate 100 bpm 2017-05-07 Respiratory Rate 20 2017-05-07 BMI 29.20 kg/m2 2017-05-07 Blood pressure systolic 128 mmHg 2017-05-07 Blood pressure diastolic 90 mmHg 2017-05-07 MEDICATIONS Medication Instructions Dosage Frequency Start Date End Date Duration Status Lisinopril 10 MG TAKE ONE TABLET BY MOUTH ONCE DAILY 30 Active Vitamin C 500 mg 1 tablet by Oral route 1 time per day Sep, Active Seroquel 300 MG Orally Once a day 1 tablet at bedtime 24h 14 Apr, 2016 30 days Active Nexium 24HR 20 MG Orally Once a day 1 capsule 24h Active Lovastatin 20 MG 1 tablets 24h 30 Active Fish Oil 1000 MG Orally Once a day 1 capsule 24h Active BusPIRone HCl 10 MG Orally Twice a day 1 tablet 12h 30 days Active RESULTS No Results PROCEDURES Procedure Date Ordered Result Body Site PSYTX COMPLEX INTERACTIVE May 07, 2017 INSTRUCTIONS MEDICATIONS ADMINISTERED No Known Medications [...] attempts Hospitalization History Ischemic colitis, dementia, generalized debility-[facility] 07/30/17
--- OUTSIDE RECORDS SUMMARY | 2018-06-23 23:29 | XMS REPORT ---
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 Name Role Phone MORENA MONTENEGRO Unavailable PROBLEMS Type Condition ICD9-CM Code YFG90-DC Code Onset Dates Condition Status SNOMED Code Problem Mood disorder F39 Active 74303638 Problem Dementia F03.90 Active 21119261 Problem Hypertension, benign I10 Active 88178502 Problem Cognitive dysfunction F09 Active 918182772 Problem 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 641301753 Problem Anxiety disorder, unspecified F41.9 Active 929652658 Problem Major depression F32.9 Active [id number] ALLERGIES No Information ENCOUNTERS Encounter Location Date Diagnosis [facility] [id number] [place] [address] 01446- 2811 Sep, [facility] [id number] [place] [address] 37212- 5487 Sep, Mood disorder F39 and Acute deep vein thrombosis (DVT) of proximal vein of left lower extremity I82.4Y2 [facility] [facility] [id number] [place] [address] 31057- 2385 Sep, [facility] [address] [place] [id number] Sep, History of DVT (deep vein thrombosis) Z86.718 and Dementia F03.90 [place] [id number] [place] [address] 58039- 5082 Sep, Mood disorder F39 and Dementia without behavioral disturbance, unspecified dementia type F03.90 [facility] [id number] [place] [address] 18956- 1264 Aug, [place] [id number] [place] [address] 34828- 0548 Aug, [facility] [id number] [id number] Aug, [facility] [address], [place] [address] 4428 Aug, [facility] [address], [place] [address] 8860 Aug, Acute deep vein thrombosis (DVT) of proximal vein of left lower extremity I82.4Y2 [facility] [address] [place] [id number] Aug, Left leg swelling M79.89 [facility] [id number] [place] [address] 33444- 0451 Aug, Mood disorder F39 and Dementia without behavioral disturbance, unspecified dementia type F03.90 [facility] [address], [place] [address] 6262 Jul, [facility] [address], [place] [address] 9492 Jul, Dementia without behavioral disturbance, unspecified dementia type F03.90 and Mood disorder F39 [facility] [address] [place] [id number] Jul, Encounter [facility] Z02.2 ; Rectal bleed K62.5 ; Dementia without behavioral disturbance, unspecified dementia type F03.90 ; Hypertension, benign I10 ; Edema R60.9 and Major depression F32.9 [facility] [id number] [id number] Jul, [facility] [id number], [place] [address] 5891 Apr, Dementia without behavioral disturbance, unspecified dementia type F03.90 and Mood disorder F39 [facility] [id number], [place] [address] 4690 Apr, [facility] [id number] [place] [address] 79502- 0213 Feb, Hypertension, benign I10 [facility] [id number] [place] [address] 107696- 1160 Dec, Major depression F32.9 ; Anxiety disorder, unspecified F41.9 ; Cognitive dysfunction F09 and Dementia without behavioral disturbance, unspecified dementia type F03.90 [facility] [id number] [place] [address] 09007- 2390 October, Hypertension, benign I10 [facility] [id number] [place] [address] 56027- 3100 Sep, Major depression F32.9 ; Anxiety disorder, unspecified F41.9 and Cognitive dysfunction F09 [place] [id number] [place] [address] 05792- 0668 Apr, Major depression F32.9 and Cognitive dysfunction F09 [place] [id number] [place] [address] 66894- 0397 Jan, Anxiety disorder, unspecified F41.9 ; Major depression F32.9 and Cognitive dysfunction F09 [facility] [id number] [place] [address] 73215- 5319 Jan, [facility] [id number] [place] [address] 79574- 4088 Dec, [place] [id number] [place] [address] 29968- 5252 Dec, [facility] [id number] [place] [address] 65934- 4470 Nov, Anxiety disorder, unspecified F41.9 ; Major depression F32.9 and Cognitive dysfunction F09 [place] [id number] [place] [address] 33700- 4167 October, Dementia without behavioral disturbance, unspecified dementia type F03.90 [facility] [id number] [place] [address] 18573- 8833 Sep, Cognitive dysfunction F09 and Edema R60.9 [facility] [id number] [place] [address] 14903- 4665 Sep, Cognitive dysfunction F09 and Edema R60.9 [facility] [id number] [place] [address] 13018- 9136 Aug, Self-care deficit for medication administration R41.89 ; Self-care deficit in patient living alone R46.89 and Cognitive dysfunction F09 [place] [id number] [place] [address] 29989- 8996 Aug, 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 and Unspecified intracranial injury without loss of consciousness, sequela S06.9X0S [place] [id number] [place] [address] 56620- 3195 Jul, [place] [address] 31636- 8178 Jun, Anxiety disorder, unspecified F41.9 and Major depression F32.9 [place] [id number] [place] [address] 83042- 4709 Jun, [place] [id number] [place] [address] 26321- 0806 May, [place] [id number] [place] [address] 86528- 0187 May, Nausea R11.0 [place] [id number] [place] [address] 04355- 4704 Apr, [facility] [id number] [place] [address] 93629- 7004 Mar, Major depression F32.9 [place] [id number] [place] [address] 21794- 4294 Mar, Encounter for immunization Z23 [place] [id number] [place] [address] 50581- 6569 Mar, Major depression F32.9 and Anxiety disorder, unspecified F41.9 [facility] [address], [place] [address]- 1859 Dec, Major depression, chronic 296.20 and Anxiety disorder, unspecified 300.00 [facility] [id number] [place] [address] 13922- 2649 October, Hypertension 401.9 [facility] [id number] [place] [address] 79689- 7736 14 Sep, 2014 [facility] [id number] [place] [address] 89545- 8295 Sep, [facility] [id number] [place] [address] 45105- 1377 18 Jul, 2014 [facility] [id number] [place] [address] 65766- 0652 Jul, [facility] [id number] [place] [address] 67805- 0496 Jul, [facility] [id number] [place] [address] 64539- 5506 May, [facility] [id number] [place] [address] 93929- 1074 May, [facility] [address], [place] [address]- 3232 May, [facility] [address], [place] [address]- 5254 May, [facility] [address], [place] [address]- 5187 Apr, [facility] [id number] [place] [address] 93230- 4798 Apr, [facility] [address] 5861 30 Feb, 2014 [facility] [id number] [place] [address] 34333- 4440 Feb, [facility] [place] [facility] [address] [id number] [place] [address]- 1517 Jan, [facility] [place] [facility] [address] [id number] [place] [address]- 0971 Jan, [facility] [place] [facility] [address] [id number] [place] [address]- 3403 Jan, [facility] [place] [facility] [address] [id number] [place] [address]- 6075 Jan, [facility] [place] [facility] [address] [id number] [place] [address]- 5454 Dec, [facility] [place] [facility] [address] [id number] [place] [address]- 4033 Dec, [facility] [place] [facility] [address] [id number] [place] [address]- 2314 Nov, [facility] [place] [facility] [address] [id number] [place] [address]- 9192 Nov, [facility] [place] [facility] [address] [id number] [place] [address]- 1086 Nov, [facility] [place] [facility] [address] [id number] [place] [address]- 1960 Nov, [facility] [place] [facility] [address] [id number] [place] [address]- 0064 October, [facility] [place] [facility] [address] [id number], [place] [address]- 6520 October, [facility] [place] [facility] [address] [id number] [place] [address]- 2635 Sep, [facility] [place] [facility] [address] [id number] [place] [address]- 5386 Sep, [facility] [place] [facility] [address] [id number] [place] [address]- 5468 Sep, [facility] [place] [facility] [address] [id number] [place] [address]- 4657 Sep, [facility] [place] [facility] [address] [id number] [place] [address]- 2746 Sep, [facility] [place] [facility] [address] [id number] [place] [address]- 8722 Sep, [facility] [place] [facility] [address] [id number] [place] [address]- 9246 Aug, [facility] [place] [facility] [address] [id number] [place] [address]- 8025 Aug, [facility] [place] [facility] [address] [id number] [place] [address]- 3094 Jul, [facility] [place] [facility] [address] [id number] [place] [address]- 3954 Jul, [facility] [place] [facility] [address] [id number] [place] [address]- 4881 May, [facility] [place] [facility] [address] [id number] [place] [address]- 0382 May, [facility] [place] [facility] [address] [id number] [place] [address]- 3987 May, [facility] [place] [facility] [address] [id number] [place] [address]- 6556 May, [facility] [place] [facility] [address] [id number] [place] [address]- 2411 May, [facility] [place] [facility] [address] [id number] [place] [address]- 6054 May, [facility] [place] [facility] [address] [id number] [place] [address]- 6288 Apr, [facility] [place] [facility] [address] [id number] [place] [address]- 2902 Apr, [facility] [place] [facility] [address] [id number] [place] [address]- 4649 Apr, [facility] [place] [facility] [address] [id number] [place] [address]- 2000 Apr, [facility] [place] [facility] [address] [id number] [place] [address]- 6502 Apr, [facility] [place] [facility] [address] [id number] [place] [address]- 2903 Apr, [facility] [place] [facility] [address] [id number] [place] [address]- 0010 Feb, [facility] [place] [facility] [address] [id number] [place] [address]- 0324 Feb, [facility] [place] [facility] [address] [id number] [place] [address]- 8811 Feb, [facility] [place] [facility] [address] [id number] [place] [address]- 9247 Feb, [facility] [place] [facility] [address] [id number] [place] [address]- 9521 Jan, [facility] [place] [facility] [address] [id number] [place] [address]- 8835 Dec, [facility] [place] [facility] [address] [id number] [place] [address]- 3119 Dec, [facility] [place] [facility] [address] [id number], [place] [address]- 0969 Dec, [facility] [place] [facility] [address] [id number], [place] [address]- 0412 Dec, [facility] [place] [facility] [address] [id number] [place] [address]- 9595 Nov, [facility] [place] [facility] [address] [id number] [place] [address]- 0874 Nov, [facility] [place] [facility] [address] [id number] [place] [address]- 4331 October, [facility] [place] [facility] [address] [id number] [place] [address]- 3076 October, [facility] [address] [id number] [place] [address]- 3976 October, [facility] [address] [id number] [place] [address] 2546 October, [facility] [address] [id number] [place] [address]- 0256 Sep, [facility] [address] [id number] [place] [address]- 4959 Aug, [facility] [address] [id number] [place] [address]- 2006 Aug, [facility] [address] [id number] [place] [address]- 0366 Aug, [facility] [address] [id number] [place] [address]- 4546 Aug, [facility] [address] [id number] [place] [address]- 7285 Jul, [facility] [address] [id number] [place] [address]- 9878 Jul, [facility] [address] [id number] [place] [address]- 6117 Jul, [facility] [address] [id number] [place] [address]- 6156 Jun, [facility] [address] [id number] [place] [address]- 7436 Jun, [facility] [address] [id number] [place] [address]- 2546 May, [facility] [address] [id number] [place] [address]- 2546 May, [facility] [address] [id number] [place] [address]- 5862 Apr, [facility] [place] [facility] [address] [id number] [place] [address]- 1979 Apr, [facility] [place] [facility] [address] [id number] [place] [address]- 8728 Apr, [facility] [place] [facility] [address] [id number] [place] [address]- 2384 Apr, [facility] [place] [facility] [address] [id number] [place] [address]- 4950 Apr, [facility] [place] [facility] [address] [id number] [place] [address]- 9968 Apr, [facility] [place] [facility] [address] [id number] [place] [address]- 6931 Mar, [facility] [place] [facility] [address] [id number] [place] [address]- 5629 Mar, [facility] [place] [facility] [address] [id number] [place] [address]- 5617 Mar, [facility] [place] [facility] [address] [id number] [place] [address]- 6282 Mar, [facility] [place] [facility] [address] [id number] [place] [address]- 4475 Mar, [facility] [place] [facility] [address] [id number] [place] [address]- 2824 Mar, [facility] [place] [facility] [address] [id number], [place] [address]- 7470 Mar, [facility] [place] [facility] [address] [id number] [place] [address]- 6944 Feb, [facility] [place] [facility] [address] [id number] [place] [address]- 0164 04 Feb, 2012 [facility] [place] [facility] [address] [id number] [place] [address]- 3071 Jan, [facility] [place] [facility] [address] [id number] [place] [address]- 8683 24 Dec, 2011 [facility] [address] [id number] [place] [address]- 5587 13 Dec, 2011 [facility] [place] [facility] [address] [id number] [place] [address]- 7390 25 Nov, 2011 [facility] [place] [facility] [address] [id number] [place] [address]- 1900 Nov, [facility] [place] [facility] [address] [id number] [place] [address]- 1565 Nov, [facility] [place] [facility] [address] [id number] [place] [address]- 3576 October, [facility] [place] [facility] [address] [id number] [place] [address]- 6556 Sep, [facility] [address] [id number] [place] [address]- 3719 16 Sep, 2011 [facility] [place] [facility] [address] [id number] [place] [address]- 8032 04 Sep, 2011 [facility] [place] [facility] [address] [id number] [place] [address]- 8858 26 Aug, 2011 [facility] [place] [facility] [address] [id number] [place] [address]- 8460 21 Aug, 2011 [facility] [place] [facility] [address] [id number] [place] [address]- 7122 20 Aug, 2011 [facility] [place] [facility] [address] [id number] [place] [address]- 6765 15 Aug, 2011 [facility] [place] [facility] [address] [id number] [place] [address]- 3905 14 Aug, 2011 [facility] [place] [facility] [address] [id number] [place] [address]- 4553 12 Aug, 2011 [facility] [place] [facility] [address] [id number] [place] [address]- 1701 08 Aug, 2011 [facility] [place] [facility] [address] [id number] [place] [address]- 8508 Aug, [facility] [place] [facility] [address] [id number] [place] [address]- 4134 Jul, [facility] [place] [facility] [address] [id number] [place] [address]- 8346 Jul, [facility] [place] [facility] [address] [id number] [place] [address]- 9276 Jul, [facility] [place] [facility] [address] [id number] [place] [address]- 1634 15 Jul, 2011 [facility] [place] [facility] [address] [id number] [place] [address]- 1742 Jul, [facility] [place] [facility] [address] [id number] [place] [address]- 0814 Jul, [facility] [place] [facility] [address] [id number] [place] [address]- 5041 Jun, [facility] [place] [facility] [address] [id number] [place] [address]- 5540 Jun, [facility] [place] [facility] [address] [id number] [place] [address]- 4193 Jun, [facility] [place] [facility] [address] [id number] [place] [address]- 4348 Jun, [facility] [place] [facility] [address] [id number] [place] [address]- 6852 May, [facility] [place] [facility] [address] [id number] [place] [address]- 254 May, [facility] [place] [facility] [address] [id number] [place] [address]- 3304 May, [facility] [place] [facility] [address] [id number] [place] [address]- 7363 May, [facility] [place] [facility] [address] [id number], [place] [address]- 4292 03 May, 2011 [facility] [address] [facility] [id number], [place] [address]- 3836 30 Apr, 2011 [facility] [address] [facility] [id number], [place] [address]- 1476 14 Apr, 2011 [facility] [id number] [place] [address]- 9787 31 Mar, 2011 [facility] [address] [facility] [id number], [place] [address]- 1211 15 Feb, 2011 [facility] [address] [facility] [id number] [place] [address] 68648- 2281 12 Feb, 2011 [facility] [address] [facility] [id number], [place] [address] 21 May, 2010 [facility] [id number] [address] 23 Apr, 2010 [facility] [id number] [address] 15 Apr, 2010 [facility] [id number] [address] 15 Apr, 2010 [facility] [id number], [place] [address] 15 Apr, 2010 [facility] [id number], [place] [address] 02 Apr, 2010 [facility] [address] [place] [id number] [address] Apr, [facility] [address] [id number], [place] [address] Mar, [facility] [address] [facility] [place] [id number], [place] [address] Mar, [facility] [id number], [place] [address] 10 Sep, 2009 IMMUNIZATIONS No Known Immunizations SOCIAL HISTORY Never Assessed REASON FOR VISIT Lab (walk-in) PLAN OF CARE VITAL SIGNS MEDICATIONS Unknown Medications RESULTS No Results PROCEDURES Procedure Date Ordered Result Body Site ASSAY THYROID STIM HORMONE Feb 22, 2017 COMPLETE CBC W/AUTO DIFF WBC Feb 22, 2017 COMPREHEN METABOLIC PANEL Feb 22, 2017 LIPID PANEL Feb 22, 2017 VENIPUNCT, ROUTINE* Feb 22, 2017 INSTRUCTIONS MEDICATIONS ADMINISTERED No Known Medications [...] attempts Hospitalization History Ischemic colitis, dementia, generalized debility-[facility] 07/30/17
--- OUTSIDE RECORDS SUMMARY | 2018-06-23 23:31 | XMS REPORT | Continuity of Care Document ---
Author Author [facility] Address Unknown Phone Unavailable Allergies Active Description Code Type Severity Reaction Onset Reported/Identified Relationship to Patient Clinical Status Yes BUTORPHANOL TARTRATE UNKNOWN ANAPHYLACTIC SHOCK Yes BUTORPHANOL TARTRATE UNKNOWN UNKNOWN Yes MORPHINE UNKNOWN OTHER Yes MORPHINE SEVERE UNKNOWN Yes morphine Drug Allergy N/A N/A 07/13/2009 Yes Stadol Drug Allergy N/A N/A 07/13/2009 Yes morphine Drug Allergy 07/13/2009 Yes Stadol Drug Allergy 07/13/2009 Yes Iodinated Contrast Media - IV Dye Drug Allergy N/A N/A 09/29/2013 Yes SHELLFISH Food Allergy N/A N/A 09/29/2013 Yes butorphanol [id number] Drug Allergy Unknown N/A 08/01/2017 Yes morphine [id number] Drug Allergy Moderate N/A 08/01/2017 Medications Medication [...] (DULCOLAX SUPPOS) MG 09/10/2017 10/10/2017 PRN Daily APIXABAN TAB 5 MG (ELIQUIS) MG 01/01/2018 ONCE&2153 TRIHEXYPHENIDYL TAB 2 MG (ARTANE) MG 01/01/2018 01/01/2018 ONCE&215 SIMVASTATIN TAB 10 MG (ZOCOR) MG 01/01/2018 ONCE&215 ACETAMINOPHEN ORAL TABLET 325mg(Tylenol) MG 01/01/2018 01/31/2018 PRN EVERY 6 Hour ALUM/MAG/SIMETH 30CC LIQ (MYLANTA PLUS) cc 01/02/2018 02/01/2018 PRN Q4H CALMOSEPTINE OINT TUBE (RISAMINE OINT) suzanne 01/02/2018 02/01/2018 PRN QID BUSPIRONE TAB 5 MG (BUSPAR) MG 01/31/2018 BID&0800,2000 LOPERAMIDE CAP 2 MG (IMMODIUM) MG 01/02/2018 02/01/2018 PRN QID PANTOPRAZOLE TAB 40 MG (PROTONIX) MG 01/02/2018 01/31/2018 Daily&0800 TRIHEXYPHENIDYL TAB 2 MG (ARTANE) MG 01/02/2018 01/31/2018 TID&0800,1400,2000 MILK OF MAGNESIA LIQ ml 01/02/2018 01/31/2018 PRN BID APIXABAN TAB 5 MG (ELIQUIS) MG 01/31/2018 BID&0800,2000 BISACODYL SUPPOS 10 MG (DULCOLAX SUPPOS) MG 01/02/2018 02/01/2018 PRN Daily LISINOPRIL TAB 10 MG (ZESTRIL) MG 01/02/2018 01/31/2018 Daily&0900 QUETIAPINE TAB 100 MG (SEROQUEL) MG 01/02/2018 01/31/2018 Daily&1800 SIMVASTATIN TAB 10 MG (ZOCOR) MG 01/31/2018 QPM&2000 AMLODIPINE TAB 5 MG (NORVASC) MG 01/03/2018 ONCE&0830 RISPERIDONE TAB 1 MG (RISPERDAL) MG 01/03/2018 02/01/2018 BID&0800,2000 CLONAZEPAM TAB 1 MG (KLONOPIN) MG 01/03/2018 02/01/2018 BID&0800,2000 FLUOXETINE CAP 20 MG (PROZAC) MG 02/01/2018 Daily&0900 AMLODIPINE TAB 5 MG (NORVASC) MG 02/02/2018 Daily&0900 RISPERIDONE DISSOLVABLE TAB 0.5 MG (RISPERDAL M-TAB) MG 01/06/2018 02/04/2018 Daily&1400 Aripiprazole oral tablet 5mg (Abilify) MG 01/07/2018 02/05/2018 Daily&0900 NICOTINE PATCH PAT 7 MG (NICODERM) MG 01/07/2018 02/05/2018 QAM&0800 LACTULOSE SYRUP LIQ 20 GM/30CC (CHRONULAC SYRUP) GM 01/07/2018 02/06/2018 BID&0800,2000 CLONAZEPAM TAB 0.5 MG (KLONOPIN) MG 01/09/2018 02/07/2018 BID&0800,2000 RISPERIDONE TAB 0.5 MG (RISPERDAL) MG 01/09/2018 01/19/2018 TID&0800,1400,2000 Docusate sodium 100mg oral capsule (COLACE) MG 01/09/2018 02/08/2018 BID&0800,2000 Aripiprazole oral tablet 5mg (Abilify) MG 01/10/2018 01/10/2018 ONCE&0831 FLUOXETINE CAP 20 MG (PROZAC) MG 01/10/2018 ONCE&0831 ARIPIPRAZOLE TAB 10 MG (ABILIFY) MG 01/11/2018 02/09/2018 QAM&0800 FLUOXETINE CAP 20 MG (PROZAC) MG 02/09/2018 QAM&0800 Problems Date Dx Coded Attending Type Code Diagnosis Diagnosed By 05/20/2009 MORENA MONTENEGRO APRN 300.00 AN ANXIETY UNSPEC 05/20/2009 MORENA MONTENEGRO APRN 303.90 SA ALCOHOL DEPENDENCE 05/20/2009 MORENA MONTENEGRO APRN 307.47 SI DYSSOMNIA NOS 05/20/2009 MORENA MONTENEGRO APRN 311 MO DEPRESS NOS 05/20/2009 TRENT STORM DO 300.00 AN ANXIETY UNSPEC 05/20/2009 TRENT STORM DO F 303.90 SA ALCOHOL DEPENDENCE 05/20/2009 TRENT STORM DO F 307.47 SI DYSSOMNIA NOS 05/20/2009 TRENT STORM DO F 311 MO DEPRESS NOS 05/20/2009 300.00 AN ANXIETY UNSPEC 05/20/2009 303.90 SA ALCOHOL DEPENDENCE 05/20/2009 307.47 SI DYSSOMNIA NOS 05/20/2009 311 MO DEPRESS NOS 05/20/2009 MORENA MONTENEGRO APRN 300.00 AN ANXIETY UNSPEC 05/20/2009 MORENA MONTENEGRO APRN 303.90 SA ALCOHOL DEPENDENCE 05/20/2009 MORENA MONTENEGRO APRN 307.47 SI DYSSOMNIA NOS 05/20/2009 MORENA MONTENEGRO APRN 311 MO DEPRESS NOS 05/20/2009 EMETERIO CURRAN TRENT Ruby 300.00 AN ANXIETY UNSPEC 05/20/2009 TRENT STORM DO F 303.90 SA ALCOHOL DEPENDENCE 05/20/2009 TRENT STORM [...] APRN 311 MO DEPRESS NOS 05/20/2009 ZULETA DO ARTI K 300.00 AN ANXIETY UNSPEC 05/20/2009 ZULETA DO ARTI K 303.90 SA ALCOHOL DEPENDENCE 05/20/2009 ZULETA DO ARTI K 307.47 SI DYSSOMNIA NOS 05/20/2009 ZULETA DO ARTI K 311 MO DEPRESS NOS 05/20/2009 ZULETA DO ARTI K 300.00 AN ANXIETY UNSPEC 05/20/2009 [...] APRN 311 MO DEPRESS NOS 05/20/2009 ROSI POLYMER ENGINEER, DEANA M 300.00 AN ANXIETY UNSPEC 05/20/2009 ROSI POLYMER ENGINEER, DEANA M 303.90 SA ALCOHOL DEPENDENCE 05/20/2009 ROSI POLYMER ENGINEER, DEANA M 307.47 SI DYSSOMNIA NOS 05/20/2009 ROSI POLYMER ENGINEER, DEANA M 311 MO DEPRESS NOS 05/20/2009 ROSI POLYMER ENGINEER, DEANA M 300.00 AN ANXIETY UNSPEC 05/20/2009 ROSI POLYMER ENGINEER, DEANA M 303.90 SA ALCOHOL DEPENDENCE 05/20/2009 ROSI POLYMER ENGINEER, DEANA M 307.47 SI DYSSOMNIA NOS 05/20/2009 ROSI POLYMER ENGINEER, DEANA M 311 MO DEPRESS NOS 05/24/2009 MONI PEREYRA MORENA T 298.8 P BRIEF PSYCHOTIC DISORDER 05/24/2009 TRENT STORM DO F 298.8 P BRIEF PSYCHOTIC DISORDER 05/24/2009 298.8 P BRIEF PSYCHOTIC DISORDER 05/24/2009 MONI PEREYRA MORENA T 298.8 P BRIEF PSYCHOTIC DISORDER 05/24/2009 MARIA ISABEL STORM DOEN F 298.8 P BRIEF PSYCHOTIC DISORDER 05/24/2009 298.8 P BRIEF PSYCHOTIC DISORDER 05/24/2009 298.8 P BRIEF PSYCHOTIC DISORDER 05/24/2009 MORENA MONTENEGRO APRN T 298.8 P BRIEF PSYCHOTIC DISORDER 05/24/2009 ZULETA [...] K 298.8 P BRIEF PSYCHOTIC DISORDER 05/24/2009 BROUSSARD METAL FURNITURE POLISHER, DANIEL RADERH 298.8 P BRIEF PSYCHOTIC DISORDER 05/24/2009 MONI PEREYRA MORENA T 298.8 P BRIEF PSYCHOTIC DISORDER 05/24/2009 BROUSSARD METAL FURNITURE POLISHER, DANIEL FARIA 298.8 P BRIEF PSYCHOTIC DISORDER 05/24/2009 DEANA LEWIS M 298.8 P BRIEF PSYCHOTIC DISORDER 05/24/2009 ROSI KESSLER, DEANA M 298.8 P BRIEF PSYCHOTIC DISORDER 07/13/2009 MORENA MONTENEGRO APRN 466.0 BRONCHITIS, ACUTE 07/13/2009 MORENA MONTENEGRO APRN V58.69 LONG-TERM (CURRENT) USE OF OTHER MEDICATIONS 07/13/2009 WERDER DO TRENT F 466.0 BRONCHITIS, ACUTE 07/13/2009 EMETERIO DO TRENT F V58.69 LONG-TERM (CURRENT) USE OF OTHER MEDICATIONS 07/13/2009 466.0 BRONCHITIS, ACUTE 07/13/2009 V58.69 LONG-TERM ( CURRENT) USE OF OTHER MEDICATIONS 07/13/2009 MORENA MONTENEGRO APRN 466.0 BRONCHITIS, ACUTE 07/13/2009 MORENA MONTENEGRO APRN V58.69 LONG-TERM (CURRENT) USE OF OTHER MEDICATIONS 07/13/2009 WERDER DOMARIA ISABELEN F 466.0 BRONCHITIS, ACUTE 07/13/2009 TRENT STORM DO F V58.69 LONG-TERM (CURRENT) USE OF OTHER MEDICATIONS 07/13/2009 466.0 BRONCHITIS, ACUTE 07/13/2009 V58.69 LONG-TERM ( CURRENT) USE OF OTHER MEDICATIONS 07/13/2009 466.0 BRONCHITIS, ACUTE 07/13/2009 V58.69 LONG-TERM ( CURRENT) USE OF OTHER MEDICATIONS 07/13/2009 MORENA MONTENEGRO APRN 466.0 BRONCHITIS, ACUTE 07/13/2009 MORENA MONTENEGRO APRN V58.69 LONG-TERM (CURRENT) USE OF OTHER MEDICATIONS 07/13/2009 MERLYN CURRAN ARTI K 466.0 BRONCHITIS, ACUTE 07/13/2009 MERLYN CURRAN ARTI K V58.69 LONG-TERM (CURRENT) USE OF OTHER MEDICATIONS 07/13/2009 ZULETA DO ARTI K 466.0 BRONCHITIS, ACUTE 07/13/2009 MERLYN CURRAN ARTI K V58.69 LONG-TERM (CURRENT) USE OF OTHER MEDICATIONS 07/13/2009 ARUN VEGA MD 466.0 BRONCHITIS, ACUTE 07/13/2009 ARUN VEGA MD V58.69 LONG-TERM (CURRENT) USE OF OTHER MEDICATIONS 07/13/2009 MERLYN CURRAN ARTI K 466.0 BRONCHITIS, ACUTE 07/13/2009 MERLYN CURRAN ARTI K V58.69 LONG-TERM (CURRENT) USE OF OTHER MEDICATIONS 07/13/2009 ZULETA DO, ARTI K 466.0 BRONCHITIS, ACUTE 07/13/2009 ZULETA DO, ARTI K V58.69 LONG-TERM (CURRENT) USE OF OTHER MEDICATIONS 07/13/2009 ZULETA DO, ARTI K 466.0 BRONCHITIS, ACUTE 07/13/2009 ZULETA DO, ARTI K V58.69 LONG-TERM (CURRENT) USE OF OTHER MEDICATIONS 07/13/2009 BROUSSARD RODDY DANIEL FARIA 466.0 BRONCHITIS, ACUTE 07/13/2009 BROUSSARD METAL FURNITURE POLISHER, DANIEL FARIA V58.69 LONG-TERM (CURRENT) USE OF OTHER MEDICATIONS 07/13/2009 MORENA MONTENEGRO APRN 466.0 BRONCHITIS, ACUTE 07/13/2009 MORENA MONTENEGRO APRN V58.69 LONG-TERM (CURRENT) USE OF OTHER MEDICATIONS 07/13/2009 BOBO PEREYRA DANIEL FARIA 466.0 BRONCHITIS, ACUTE 07/13/2009 BOBO PEREYRA DANIEL FARIA V58.69 LONG-TERM (CURRENT) USE OF OTHER MEDICATIONS 07/13/2009 DEANA LEWIS M 466.0 BRONCHITIS, ACUTE 07/13/2009 DEANA LEWIS M V58.69 LONG-TERM (CURRENT) USE OF OTHER MEDICATIONS 07/13/2009 DEANA LEWIS M 466.0 BRONCHITIS, ACUTE 07/13/2009 DEANA LEWIS M V58.69 LONG-TERM (CURRENT) USE OF OTHER MEDICATIONS 08/01/2009 MORENA MONTENEGRO APRN 309.81 AN PTSD 08/01/2009 TRENT STORM DO 309.81 AN PTSD 08/01/2009 309.81 AN PTSD 08/01/2009 MORENA MONTENEGRO APRN 309.81 AN PTSD 08/01/2009 TRENT STORM DO 309.81 AN PTSD 08/01/2009 309.81 AN PTSD 08/01/2009 309.81 AN PTSD 08/01/2009 MORENA MONTENEGRO APRN 309.81 AN PTSD 08/01/2009 ARTI ZULETA DO 309.81 AN PTSD 08/01/2009 ARTI ZULETA DO K 309.81 AN PTSD 08/01/2009 ARUN VEGA MD 309.81 AN PTSD 08/01/2009 ARTI ZULETA DO 309.81 AN PTSD 08/01/2009 ZULETA DO, ARTI K 309.81 AN PTSD 08/01/2009 MERLYN CURRAN ARTI K 309.81 AN PTSD 08/01/2009 DANIEL [...] IN JOINT, ANKLE AND FOOT 09/17/2009 MERLYN DOEVELYNA K 719.47 PAIN IN JOINT, ANKLE [...] JOINT, ANKLE AND FOOT 09/17/2009 DEANA LEWIS M 719.47 PAIN IN JOINT, ANKLE AND FOOT 10/20/2009 MORENA MONTENEGRO APRN 296.80 MO BIPOLAR NOS 10/20/2009 WERTRENT FRENCH DO 296.80 MO BIPOLAR NOS 10/20/2009 296.80 MO BIPOLAR NOS 10/20/2009 MORENA MONTENEGRO APRN 296.80 MO BIPOLAR NOS 10/20/2009 WERTRENT FRENCH DO 296.80 MO BIPOLAR NOS 10/20/2009 296.80 [...] BROUSSARD APRN 296.80 MO BIPOLAR NOS 10/20/2009 ROSI KESSLER, DEANA M 296.80 MO BIPOLAR NOS 10/20/2009 ROSI KESSLER, DEANA M 296.80 MO BIPOLAR NOS 03/07/2010 MORENA MONTENEGRO APRN 401.1 HYPERTENSION, BENIGN ESSENTIAL 03/07/2010 MORENA MONTENEGRO APRN NODX NO DIAGNOSIS 03/07/2010 TRENT STORM DO 401.1 HYPERTENSION, BENIGN ESSENTIAL 03/07/2010 TRENT STORM DO NODX NO DIAGNOSIS 03/07/2010 401.1 HYPERTENSION, BENIGN ESSENTIAL 03/07/2010 NODX NO DIAGNOSIS 03/07/2010 MORENA MONTENEGRO APRN 401.1 HYPERTENSION, BENIGN ESSENTIAL 03/07/2010 MORENA MONTENEGRO APRN NODX NO DIAGNOSIS 03/07/2010 TRENT STORM DO 401.1 HYPERTENSION, BENIGN ESSENTIAL 03/07/2010 TRENT STORM DO NODX NO DIAGNOSIS 03/07/2010 401.1 HYPERTENSION, BENIGN [...] DO, ARTI K NODX NO DIAGNOSIS 03/07/2010 DANIEL BROUSSARD APRN 401.1 HYPERTENSION, BENIGN ESSENTIAL 03/07/2010 BOBO PEREYRA, DANIEL FARIA NODX NO DIAGNOSIS 03/07/2010 MORENA MONTENEGRO APRN 401.1 HYPERTENSION, BENIGN ESSENTIAL 03/07/2010 MORENA MONTENEGRO APRN NODX NO DIAGNOSIS 03/07/2010 BOBO PEREYRA DANIEL BIENVENIDO 401.1 HYPERTENSION, BENIGN ESSENTIAL 03/07/2010 BOBO PEREYRA DANIEL FARIA NODX NO DIAGNOSIS 03/07/2010 ROSI POLYMER ENGINEER, DEANA M 401.1 HYPERTENSION, BENIGN ESSENTIAL 03/07/2010 ROSI POLYMER ENGINEER, DEANA M NODX NO DIAGNOSIS 03/07/2010 ROSI POLYMER ENGINEER, DEANA M 401.1 HYPERTENSION, BENIGN ESSENTIAL 03/07/2010 ROSI POLYMER ENGINEER, DEANA M NODX NO DIAGNOSIS 03/14/2010 MORENA MONTENEGRO APRN 486 PNEUMONIA UNSPECIFIED 03/14/2010 TRENT STORM DO 486 PNEUMONIA UNSPECIFIED 03/14/2010 486 PNEUMONIA UNSPECIFIED 03/14/2010 MORENA MONTENEGRO APRN 486 PNEUMONIA UNSPECIFIED 03/14/2010 RENITADER DO, TRENT F 486 PNEUMONIA UNSPECIFIED 03/14/2010 [...] 486 PNEUMONIA UNSPECIFIED 03/14/2010 BOBO PEREYRA, DANIEL BIENVENIDO 486 PNEUMONIA UNSPECIFIED 03/14/2010 MORENA MONTENEGRO APRN 486 PNEUMONIA UNSPECIFIED 03/14/2010 BOBO PEREYRA, DANIEL RADERH 486 PNEUMONIA UNSPECIFIED 03/14/2010 ROSI POLYMER ENGINEER, DEANA M 486 PNEUMONIA UNSPECIFIED 03/14/2010 ROSI POLYMER ENGINEER, DEANA M 486 PNEUMONIA UNSPECIFIED 04/24/2010 MORENA MONTENEGRO APRN 272.0 HYPERCHOLESTEROLEMIA PURE 04/24/2010 RENITADER DO, TRENT F 272.0 HYPERCHOLESTEROLEMIA PURE 04/24/2010 272.0 HYPERCHOLESTEROLEMIA PURE 04/24/2010 MORENA MONTENEGRO APRN 272.0 HYPERCHOLESTEROLEMIA PURE 04/24/2010 RENITADER DO, TRENT F 272.0 HYPERCHOLESTEROLEMIA PURE 04/24/2010 [...] DO, ARTI K 272.0 HYPERCHOLESTEROLEMIA PURE 04/24/2010 BOBO PEREYRA, DANIEL RADERH 272.0 HYPERCHOLESTEROLEMIA PURE 04/24/2010 MORENA MONTENEGRO APRN 272.0 HYPERCHOLESTEROLEMIA PURE 04/24/2010 BOBO PEREYRA, DANIEL BIENVENIDO 272.0 HYPERCHOLESTEROLEMIA PURE 04/24/2010 ROSI POLYMER ENGINEER, DEANA M 272.0 HYPERCHOLESTEROLEMIA PURE 04/24/2010 ROSI [...] 564.00 Unspecified Constipation 10/31/2010 BOBO PEREYRA, DANIEL FARIA 564.00 Unspecified Constipation 10/31/2010 MORENA MONTENEGRO APRN 564.00 Unspecified Constipation 10/31/2010 BOBO PEREYRA, DANIEL FARIA 564.00 Unspecified Constipation 10/31/2010 ROSI POLYMER ENGINEER, DEANA M 564.00 Unspecified Constipation 10/31/2010 ROSI POLYMER ENGINEER, DEANA M 564.00 Unspecified Constipation 05/09/2011 MORENA MONTENEGRO APRN 079.99 VIRAL SYNDROME 05/09/2011 TRENT STORM DO 079.99 VIRAL SYNDROME 05/09/2011 079.99 VIRAL SYNDROME 05/09/2011 MORENA MONTENEGRO APRN 079.99 VIRAL SYNDROME 05/09/2011 TRENT STORM DO 079.99 VIRAL SYNDROME 05/09/2011 079.99 VIRAL SYNDROME 05/09/2011 079.99 VIRAL SYNDROME 05/09/2011 MORENA MONTENEGRO APRN 079.99 VIRAL SYNDROME 05/09/2011 ZULETA DO ARTI K 079.99 VIRAL SYNDROME 05/09/2011 ZULETA DO, ARTI K 079.99 VIRAL SYNDROME 05/09/2011 ARUN VEGA MD 079.99 VIRAL SYNDROME 05/09/2011 ZULETA DO, ARTI K 079.99 VIRAL SYNDROME 05/09/2011 ZULETA DO, ARTI K 079.99 VIRAL SYNDROME 05/09/2011 ZULETA DO, ARTI K 079.99 VIRAL SYNDROME 05/09/2011 BROUSSARD METAL FURNITURE POLISHER, DANIEL FARIA 079.99 VIRAL SYNDROME 05/09/2011 MORENA MONTENEGRO APRN 079.99 VIRAL SYNDROME 05/09/2011 BROUSSARD METAL FURNITURE POLISHER, DANIEL FARIA 079.99 VIRAL SYNDROME 05/09/2011 DEANA LEWIS M 079.99 VIRAL SYNDROME 05/09/2011 DEANA LEWIS M 079.99 VIRAL SYNDROME 05/12/2011 MORENA MONTENEGRO APRN 465.9 UPPER RESPIRATORY INFECTION 05/12/2011 MARIA ISABEL STORM DOEN F 465.9 UPPER RESPIRATORY INFECTION 05/12/2011 465.9 UPPER RESPIRATORY INFECTION 05/12/2011 MORENA MONTENEGRO APRN 465.9 UPPER RESPIRATORY INFECTION 05/12/2011 RENITADER DO, TRENT F 465.9 UPPER RESPIRATORY INFECTION 05/12/2011 465.9 [...] ARTI K 465.9 UPPER RESPIRATORY INFECTION 05/12/2011 BROUSSARDDANIEL ADAMES APRN 465.9 UPPER RESPIRATORY INFECTION 05/12/2011 MORENA MONTENEGRO APRN 465.9 UPPER RESPIRATORY INFECTION 05/12/2011 DANIEL BROUSSARD APRNH 465.9 UPPER RESPIRATORY INFECTION 05/12/2011 DEANA LEWIS [...] DO, ARTI K 787.02 NAUSEA ALONE 05/30/2011 DANIEL BROUSSARD APRN 787.02 NAUSEA ALONE 05/30/2011 MORENA MONTENEGRO APRN 787.02 NAUSEA ALONE 05/30/2011 DANIEL BROUSSARD APRNH 787.02 NAUSEA ALONE 05/30/2011 DEANA LEWIS M 787.02 NAUSEA ALONE 05/30/2011 DEANA LEWIS M 787.02 NAUSEA ALONE 06/06/2011 MORENA MONTENEGRO APRN 216.9 MOLE/NEVUS - SITE UNSPECIFIED 06/06/2011 TRENT STORM DO 216.9 MOLE/NEVUS - SITE UNSPECIFIED 06/06/2011 216.9 MOLE/NEVUS - SITE UNSPECIFIED 06/06/2011 MORENA MONTENEGRO APRN 216.9 Mole/nevus - Site Unspecified 06/06/2011 TRENT STORM DO 216.9 Mole/nevus - Site Unspecified 06/06/2011 216.9 [...] K 216.9 Mole/nevus - Site Unspecified 06/06/2011 DANIEL BROUSSARD APRN 216.9 Mole/nevus - Site Unspecified 06/06/2011 MORENA MONTENEGRO APRN 216.9 Mole/nevus - Site Unspecified 06/06/2011 DANIEL BROUSSARD APRN 216.9 Mole/nevus - Site Unspecified 06/06/2011 DEANA LEWIS 216.9 Mole/nevus - Site Unspecified 06/06/2011 DEANA LEWIS 216.9 Mole/nevus - Site Unspecified 06/19/2011 MORENA [...] 06/19/2011 DEANA LEWIS 787.02 Nausea Alone 06/19/2011 ROSI CHECODEANA 787.02 Nausea Alone 07/06/2011 MORENA MONTENEGRO APRN 008.8 GASTROENTERITIS, VIRAL 07/06/2011 TRENT STORM DO 008.8 GASTROENTERITIS, VIRAL 07/06/2011 008.8 GASTROENTERITIS, VIRAL 07/06/2011 MORENA MONTENEGRO APRN 008.8 GASTROENTERITIS, VIRAL 07/06/2011 TRENT STORM DO 008.8 GASTROENTERITIS, VIRAL 07/06/2011 008.8 GASTROENTERITIS, VIRAL 07/06/2011 008.8 GASTROENTERITIS, VIRAL 07/06/2011 MORENA MONTENEGRO APRN 008.8 GASTROENTERITIS, VIRAL 07/06/2011 EVELYN ZULETA DOA K 008.8 GASTROENTERITIS, VIRAL 07/06/2011 EVELYN ZULETA DOA K 008.8 GASTROENTERITIS, VIRAL 07/06/2011 ARUN VEGA MD 008.8 GASTROENTERITIS, VIRAL 07/06/2011 ZULETA DO ARTI K 008.8 GASTROENTERITIS, VIRAL 07/06/2011 EVELYN ZULETA DOA K 008.8 GASTROENTERITIS, VIRAL 07/06/2011 ZULETA DO ARTI K 008.8 GASTROENTERITIS, VIRAL 07/06/2011 DANIEL BROUSSARD APRN 008.8 GASTROENTERITIS, VIRAL 07/06/2011 MORENA MONTENEGRO APRN 008.8 GASTROENTERITIS, VIRAL 07/06/2011 BOBO PEREYRA DANIEL BIENVENIDO 008.8 GASTROENTERITIS, VIRAL 07/06/2011 DEANA LEWIS 008.8 GASTROENTERITIS, VIRAL 07/06/2011 DEANA LEWIS 008.8 GASTROENTERITIS, VIRAL 07/25/2011 MORENA MONTENEGRO APRN 535.50 GASTRITIS UNSPEC 07/25/2011 TRENT STORM DO 535.50 GASTRITIS UNSPEC 07/25/2011 535.50 Gastritis Unspec 07/25/2011 MORENA MONTENEGRO APRN 535.50 Gastritis Unspec 07/25/2011 TRENT STORM DO 535.50 Gastritis Unspec 07/25/2011 535.50 Gastritis Unspec 07/25/2011 535.50 Gastritis Unspec 07/25/2011 MORENA MONTENEGRO APRN 535.50 GASTRITIS UNSPEC 07/25/2011 ARTI ZULETA DO K 535.50 Gastritis Unspec 07/25/2011 EVELYN ZULETA DOA K 535.50 Gastritis Unspec 07/25/2011 ARUN VEGA MD 535.50 Gastritis Unspec 07/25/2011 MERLYN CURRAN, ARTI K 535.50 Gastritis Unspec 07/25/2011 ZULETA DO, ARTI K 535.50 Gastritis Unspec 07/25/2011 ZULETA DO, ARTI K 535.50 Gastritis Unspec 07/25/2011 BOBO PEREYRA, DANIEL RADERH 535.50 Gastritis Unspec 07/25/2011 MORENA MONTENEGRO APRN 535.50 Gastritis Unspec 07/25/2011 BOBO PEREYRA DANIEL BIENVENIDO 535.50 Gastritis Unspec 07/25/2011 DEANA LEWIS 535.50 [...] MONTENEGRO APRN 706.2 SEBACEOUS CYST 07/30/2011 ZULETA , ARTI K 706.2 SEBACEOUS CYST 07/30/2011 ZULETA DO, ARTI K 706.2 SEBACEOUS CYST 07/30/2011 ARUN VEGA MD 706.2 SEBACEOUS CYST 07/30/2011 ZULETA DO, ARTI K 706.2 SEBACEOUS CYST 07/30/2011 ZULETA DO, ARTI K 706.2 SEBACEOUS CYST 07/30/2011 ZULETA DO, ARTI K 706.2 SEBACEOUS CYST 07/30/2011 DANIEL BROUSSARD APRN 706.2 SEBACEOUS CYST 07/30/2011 MORENA MONTENEGRO APRN [...] ARTI K 787.01 Nausea With Vomiting 08/20/2011 BOBO PEREYRA DANIEL RADERH 787.01 Nausea With Vomiting 08/20/2011 MORENA MONTENEGRO APRN 787.01 Nausea With Vomiting 08/20/2011 BOBO PEREYRA DANIEL BIENVENIDO 787.01 Nausea With Vomiting 08/20/2011 DEANA LEWIS 787.01 Nausea With Vomiting 08/20/2011 DEANA LEWIS 787.01 Nausea With Vomiting 08/28/2011 MORENA MONTENEGRO APRN 380.4 IMPACTED CERUMEN 08/28/2011 WERDER DOTRENT F 380.4 IMPACTED CERUMEN 08/28/2011 380.4 Impacted Cerumen 08/28/2011 MORENA MONTENEGRO APRN 380.4 Impacted Cerumen 08/28/2011 WERDER DO, TRENT F 380.4 Impacted Cerumen 08/28/2011 380.4 Impacted Cerumen 08/28/2011 380.4 Impacted Cerumen 08/28/2011 MORENA MONTENEGRO APRN 380.4 IMPACTED CERUMEN 08/28/2011 ZULETA DO, ARTI K 380.4 Impacted Cerumen 08/28/2011 ZULETA DO, ARTI K 380.4 Impacted Cerumen 08/28/2011 ARUN VEGA MD 380.4 Impacted Cerumen 08/28/2011 ZULETA DO, ARTI K 380.4 Impacted Cerumen 08/28/2011 ZULETA DO, ARTI K 380.4 Impacted Cerumen 08/28/2011 ZULTEA DO, ARTI K 380.4 Impacted Cerumen 08/28/2011 DANIEL BROUSSARD APRN 380.4 Impacted Cerumen 08/28/2011 MORENA MONTENEGRO APRN 380.4 Impacted Cerumen 08/28/2011 DANIEL BROUSSARD APRN 380.4 Impacted Cerumen 08/28/2011 DEANA LEWIS 380.4 Impacted Cerumen 08/28/2011 ROSI POLYMER ENGINEER, DEANA M 380.4 Impacted Cerumen 04/21/2012 MORENA MONTENEGRO APRN 486 PNEUMONIA UNSPECIFIED 04/21/2012 TRENT STORM DO 486 PNEUMONIA UNSPECIFIED 04/21/2012 486 Pneumonia Unspecified 04/21/2012 MORENA MONTENEGRO APRN 486 Pneumonia Unspecified 04/21/2012 TRENT STROM DO 486 Pneumonia Unspecified 04/21/2012 486 Pneumonia [...] ARTI K 486 Pneumonia Unspecified 04/21/2012 BOBO PEREYRA, DANIEL FARIA 486 Pneumonia Unspecified 04/21/2012 MORENA MONTENEGRO APRN 486 Pneumonia Unspecified 04/21/2012 BOBO PEREYRA, DANIEL FARIA 486 Pneumonia Unspecified 04/21/2012 ROSI KESSLER, DEANA M 486 Pneumonia Unspecified 04/21/2012 ROSI KESSLER, DEANA M 486 Pneumonia Unspecified 05/14/2012 MORENA MONTENEGRO APRN [...] Dx (3 Yrs And Above, Im) 05/14/2012 MERLYN DO, ARTI K V04.81 Flu Dx (3 Yrs And Above, Im) 05/14/2012 ZULETA DO, ARTI K V04.81 Flu Dx (3 Yrs And Above, Im) 05/14/2012 GARY KHAN, ARUN V04.81 Flu Dx (3 Yrs And Above, [...] 08/13/2012 V65.42 COUNSELING - SMOKING CESSATION 08/13/2012 ARTI ZULETA DO K 305.1 TOBACCO ABUSE 08/13/2012 EVELYN ZULETA DOA K 466.0 Bronchitis, Acute 08/13/2012 ARTI ZULETA DO K V65.42 COUNSELING - SMOKING CESSATION 08/13/2012 [...] BIENVENIDO V65.42 COUNSELING - SMOKING CESSATION 08/13/2012 MORENA MONTENEGRO APRN 305.1 TOBACCO ABUSE 08/13/2012 MORENA MONTENEGRO APRN 466.0 Bronchitis, Acute 08/13/2012 OMRENA MONTENEGRO APRN V65.42 COUNSELING - SMOKING CESSATION 08/13/2012 BOBO PEREYRA DANIEL BIENVENIDO 305.1 TOBACCO ABUSE 08/13/2012 BOBO PEREYRA DANIEL BIENVENIDO 466.0 Bronchitis, Acute 08/13/2012 DANIEL BROUSSARD APRN V65.42 COUNSELING - SMOKING CESSATION 08/13/2012 DEANA LEWIS M 305.1 TOBACCO ABUSE 08/13/2012 DEANA LEWIS M 466.0 Bronchitis, Acute 08/13/2012 DEANA LEWIS V65.42 COUNSELING - SMOKING CESSATION 08/13/2012 DEANA LEWIS M 305.1 TOBACCO ABUSE 08/13/2012 DEANA LEWIS 466.0 Bronchitis, Acute 08/13/2012 DEANA LEWIS V65.42 COUNSELING - SMOKING CESSATION 02/25/2013 MERLYN CURRAN ARTI K V03.82 PPV23 (PNEUMOVAX) DX 02/25/2013 MERLYN CURRAN ARTI K V03.82 PPV23 (PNEUMOVAX) DX 02/25/2013 ARUN VEGA MD V03.82 PPV23 (PNEUMOVAX) DX 02/25/2013 MERLYN CURRAN ARTI K V03.82 PPV23 (PNEUMOVAX) DX 02/25/2013 MERLYN CURRAN, ARTI K V03.82 PPV23 (PNEUMOVAX) DX 02/25/2013 MERLYN CURRANEVELYNA K V03.82 PPV23 (PNEUMOVAX) DX 02/25/2013 DANIEL BROUSSARD APRN V03.82 PPV23 (PNEUMOVAX) DX 02/25/2013 MORENA MONTENEGRO APRN V03.82 PPV23 (PNEUMOVAX) DX 02/25/2013 DANIEL BROUSSARD APRN V03.82 PPV23 (PNEUMOVAX) DX 02/25/2013 DEANA LEWIS V03.82 PPV23 (PNEUMOVAX) DX 02/25/2013 DEANA LEWIS V03.82 PPV23 (PNEUMOVAX) DX 06/04/2013 MERLYN DO ARTI K 462 ACUTE PHARYNGITIS 06/04/2013 MERLYN DO ARTI K 786.2 COUGH 06/04/2013 MERLYN DO ARTI K 462 ACUTE PHARYNGITIS 06/04/2013 MERLYN DO ARTI K 786.2 COUGH 06/04/2013 DANIEL BROUSSARD APRN 462 ACUTE PHARYNGITIS 06/04/2013 DANIEL BROUSSARD APRN 786.2 COUGH 06/04/2013 MORNEA MONTENEGRO APRN 46Higinio ACUTE PHARYNGITIS 06/04/2013 MORENA MONTENEGRO APRN 786.2 COUGH 06/04/2013 DANIEL BROUSSARD APRN 462 ACUTE PHARYNGITIS 06/04/2013 DANIEL BROUSSARD APRN 786.2 COUGH 06/04/2013 DEANA LEWIS 462 ACUTE PHARYNGITIS 06/04/2013 DEANA LEWIS 786.2 COUGH 06/04/2013 DEANA LEWIS M 462 ACUTE PHARYNGITIS 06/04/2013 DEANA LEWIS M 786.2 COUGH 10/02/2013 ZULETA DO, ARTI K 465.9 UPPER RESPIRATORY INFECTION 10/02/2013 ZULETA DO, ATRI K 787.02 NAUSEA ALONE 10/02/2013 BROUSSARD METAL FURNITURE POLISHER, DANIEL BIENVENIDO 465.9 UPPER RESPIRATORY INFECTION 10/02/2013 BROUSSARD METAL FURNITURE POLISHER, DANIEL BIENVENIDO 787.02 NAUSEA ALONE 10/02/2013 MONI MET[employer] FURNITURE POLISHER, MORENA T 465.9 UPPER RESPIRATORY INFECTION 10/02/2013 MONI METAL FURNITURE POLISHER, MORENA T 787.02 NAUSEA ALONE 10/02/2013 BROUSSARD METAL FURNITURE POLISHER, DANIEL BIENVENIDO 465.9 UPPER RESPIRATORY INFECTION 10/02/2013 BROUSSARD METAL FURNITURE POLISHER, DANIEL BIENVENIDO 787.02 NAUSEA ALONE 10/02/2013 DEANA LEWIS M 465.9 UPPER RESPIRATORY INFECTION 10/02/2013 DEANA LEWIS M 787.02 NAUSEA ALONE 10/02/2013 DEANA LEWIS M 465.9 UPPER RESPIRATORY INFECTION 10/02/2013 DEANA LEWIS M 787.02 NAUSEA ALONE 12/29/2015 GARY KHAN, ARUN Beltran Ot F03.90 UNSPECIFIED DEMENTIA WITHOUT BEHAVIORAL 01/06/2016 GARY KHAN, ARUN Beltran Ot F03.90 UNSPECIFIED DEMENTIA WITHOUT BEHAVIORAL 10/05/2016 GARY KHAN, ARUN Beltran Ot F03.90 UNSPECIFIED DEMENTIA WITHOUT BEHAVIORAL 12/24/2016 GARY KHAN, ARUN Beltran Ot F03.90 UNSPECIFIED DEMENTIA WITHOUT BEHAVIORAL 07/29/2017 GARY KHAN, ARUN Beltran Ot F03.90 UNSPECIFIED DEMENTIA WITHOUT BEHAVIORAL 07/29/2017 KELSIE KHAN, MELISSA Morgan Ot E86.1 HYPOVOLEMIA 07/29/2017 KELSIE KHAN, MELISSA Morgan Ot F17.200 NICOTINE DEPENDENCE, UNSPECIFIED, UNCOMP 07/29/2017 KELSIE KHAN, MELISSA Morgan Ot K62.5 HEMORRHAGE OF ANUS AND RECTUM 07/29/2017 KELSIE KHAN, MELISSA Morgan Ot K62.89 OTHER SPECIFIED DISEASES OF ANUS AND REC 07/29/2017 KELSIE KHAN, MELISSA Morgan Ot Z88.5 ALLERGY STATUS TO NARCOTIC AGENT STATUS 07/30/2017 KELSIE KHAN, MELISSA Morgan Ot E86.1 HYPOVOLEMIA 07/30/2017 KELSIE KHAN, MELISSA Morgan Ot F17.200 NICOTINE DEPENDENCE, UNSPECIFIED, UNCOMP 07/30/2017 KELSIE KHAN, MELISSA Morgan Ot K62.5 HEMORRHAGE OF ANUS AND RECTUM 07/30/2017 KELSIE KHAN, MELISSA Morgan Ot K62.89 OTHER SPECIFIED DISEASES OF ANUS AND REC 07/30/2017 KELSIE KHAN, MELISSA Morgan Ot Z88.5 ALLERGY STATUS TO NARCOTIC AGENT STATUS 07/30/2017 GARY KHAN, ARUN Beltran Ot F03.90 UNSPECIFIED DEMENTIA WITHOUT BEHAVIORAL 08/02/2017 B[place] DOMALGORZATA Ot E78.00 PURE HYPERCHOLESTEROLEMIA, UNSPECIFIED 08/02/2017 BARNIDGE DOMALGORZATA Ot E86.0 DEHYDRATION 08/02/2017 BARNIE DOMALGORZATA Ot F03.90 UNSPECIFIED DEMENTIA WITHOUT BEHAVIORAL 08/02/2017 BARNIDGE DOMALGORZATA Ot F17.210 NICOTINE DEPENDENCE, CIGARETTES, UNCOMPL 08/02/2017 BARNIDGE DOMALGORZATA E Ot F32.9 MAJOR DEPRESSIVE DISORDER, SINGLE EPISOD 08/02/2017 BARNIDGE DOMALGORZATA Ot F41.9 ANXIETY DISORDER, UNSPECIFIED 08/02/2017 BARNIDGE DOMALGORZATA E Ot I10 ESSENTIAL (PRIMARY) HYPERTENSION 08/02/2017 BARNIDGE DOMALGORZATA Ot K21.9 GASTRO-ESOPHAGEAL REFLUX DISEASE WITHOUT 08/02/2017 BARNIDGE DOMALGORZATA Ot K62.5 HEMORRHAGE OF ANUS AND RECTUM 08/02/2017 BARNIDGE DONIESHAT E Ot R11.2 NAUSEA WITH VOMITING, UNSPECIFIED 08/02/2017 BARNIDGE DOMALGORZATA E Ot D12.8 BENIGN NEOPLASM OF RECTUM 08/02/2017 BARNIDGE DOMALGORZATA Ot E78.00 PURE HYPERCHOLESTEROLEMIA, UNSPECIFIED 08/02/2017 BARNIDGE DOMALGORZATA Ot E78.5 HYPERLIPIDEMIA, UNSPECIFIED 08/02/2017 [place] DO, MALGORZATA E Ot E86.0 DEHYDRATION 08/02/2017 [facility] DO MALGORZATA Kim Ot E87.6 HYPOKALEMIA 08/02/2017 [facility] DO MALGORZATA E Ot F03.90 UNSPECIFIED DEMENTIA WITHOUT BEHAVIORAL 08/02/[facility] [place] Ot F17.210 NICOTINE DEPENDENCE, CIGARETTES, UNCOMPL 08/02/2017 [place] DO MALGORZATA E Ot F32.9 MAJOR DEPRESSIVE DISORDER, SINGLE EPISOD 08/02/2017 [facility] DO MALGORZATA E Ot F41.9 ANXIETY DISORDER, UNSPECIFIED 08/02/2017 [facility] [place] E Ot I10 ESSENTIAL (PRIMARY) HYPERTENSION 08/02/2017 [facility] DO MALGORZATA E Ot K21.9 GASTRO-ESOPHAGEAL REFLUX DISEASE WITHOUT 08/02/[facility] E Ot K25.4 CHRONIC OR UNSPECIFIED GASTRIC ULCER WIT 08/02/2017 [facility] [place] E Ot K55.9 VASCULAR DISORDER OF INTESTINE, UNSPECIF 08/02/2017 [facility] [place] E Ot K62.5 HEMORRHAGE OF ANUS AND RECTUM 08/02/2017 [facility] MALGORZ[facility] E Ot R11.2 NAUSEA WITH VOMITING, UNSPECIFIED 08/07/2017 GARY KHAN, ARUN Beltran Ot F03.90 UNSPECIFIED DEMENTIA WITHOUT BEHAVIORAL 08/07/2017 TADEO KHAN, GANGA Prescott Ot K92.1 MELENA 08/07/2017 TADEO KHAN, GANGA Prescott Ot Z01.818 ENCOUNTER FOR OTHER PREPROCEDURAL EXAMIN 08/14/2017 CARO CAMARA Ot I82.4Z2 AC EMBLSM AND THOMBOS UNSP DEEP VEINS OF 08/14/2017 CARO CAMARA Ot I82.4Z2 AC EMBLSM AND THOMBOS UNSP DEEP VEINS OF 08/19/2017 GARY KHAN, ARUN Beltran Ot F03.90 UNSPECIFIED DEMENTIA WITHOUT BEHAVIORAL 08/19/2017 TADEO KHAN, GANGA Prescott Ot K92.1 MELENA 08/19/2017 TADEO KHAN, GANGA Prescott Ot Z01.818 ENCOUNTER FOR OTHER PREPROCEDURAL EXAMIN 08/19/2017 JAX, CARO LACE TEARING SUPERVISOR Ot I82.4Z2 AC EMBLSM AND THOMBOS UNSP DEEP VEINS OF 08/19/2017 GARY KHAN, ARUN Beltran Ot F03.90 UNSPECIFIED DEMENTIA WITHOUT BEHAVIORAL 08/19/2017 TADEO KHAN, GANGA Prescott Ot K92.1 MELENA 08/19/2017 TADEO KHAN, GANGA Prescott Ot Z01.818 ENCOUNTER FOR OTHER PREPROCEDURAL EXAMIN 08/19/2017 CARO CAMARA LACE TEARING SUPERVISOR Ot I82.4Z2 AC EMBLSM AND THOMBOS UNSP DEEP VEINS OF 08/19/2017 KELSIE KHAN, MELISSA Morgan Ot E78.00 PURE HYPERCHOLESTEROLEMIA, UNSPECIFIED 08/19/2017 MELISSA IGLESIAS MD Ot F03.90 UNSPECIFIED DEMENTIA WITHOUT BEHAVIORAL 08/19/2017 MELISSA IGLESIAS MD Ot F17.210 NICOTINE DEPENDENCE, CIGARETTES, UNCOMPL 08/19/2017 MELISSA IGLESIAS MD Ot F32.9 MAJOR DEPRESSIVE DISORDER, SINGLE EPISOD 08/19/2017 MELISSA IGLESIAS MD Ot F41.9 ANXIETY DISORDER, UNSPECIFIED 08/19/2017 [...] R19.5 OTHER FECAL ABNORMALITIES 08/19/2017 MELISSA IGLESIAS MD Ot Z79.01 RETIREMENT (CURRENT) USE OF ANTICOAGULANT 08/19/2017 MELISSA IGLESIAS MD Ot Z87.19 PERSONAL HISTORY OF OTHER DISEASES OF TH 08/19/2017 MELISSA IGLESIAS MD Ot Z87.59 PERSONAL HISTORY OF COMP OF PREG, CHLDBR 08/19/2017 MELISSA IGLESIAS MD, Ot Z88.5 ALLERGY STATUS TO NARCOTIC AGENT STATUS 08/19/2017 MELISSA IGLESIAS MD, Ot Z88.6 ALLERGY STATUS TO ANALGESIC AGENT STATUS 08/19/2017 MELISSA IGLESIAS MD, Ot Z90.49 ACQUIRED ABSENCE OF OTHER SPECIFIED PART 08/19/2017 MELISSA IGLESIAS MD, Ot Z90.710 ACQUIRED ABSENCE OF BOTH CERVIX AND UTER 08/21/2017 MELISSA IGLESIAS MD Ot E78.00 PURE HYPERCHOLESTEROLEMIA, UNSPECIFIED 08/21/2017 MELISSA IGLESIAS MD, Ot F03.90 UNSPECIFIED DEMENTIA WITHOUT BEHAVIORAL 08/21/2017 MELISSA IGLESIAS MD Ot F17.210 NICOTINE DEPENDENCE, CIGARETTES, UNCOMPL 08/21/2017 MELISSA IGLESIAS MD, Ot F32.9 MAJOR DEPRESSIVE DISORDER, SINGLE EPISOD 08/21/2017 MELISSA IGLESIAS MD, Ot F41.9 ANXIETY DISORDER, UNSPECIFIED 08/21/2017 MELISSA IGLESIAS MD, Ot I10 ESSENTIAL (PRIMARY) HYPERTENSION 08/21/2017 MELSISA IGELSIAS MD Ot I82.402 ACUTE EMBOLISM AND THOMBOS UNSP DEEP VEI 08/21/2017 MELISSA IGLESIAS MD, Ot K21.9 GASTRO-ESOPHAGEAL REFLUX DISEASE WITHOUT 08/21/2017 MELISSA IGLESIAS MD Ot L03.116 CELLULITIS OF LEFT LOWER LIMB 08/21/2017 MELISSA IGLESIAS MD Ot M79.89 OTHER SPECIFIED SOFT TISSUE DISORDERS 08/21/2017 MELISSA IGLESIAS MD, Ot R19.5 OTHER FECAL ABNORMALITIES 08/21/2017 MELISSA IGLESIAS MD, Ot 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 08/21/2017 MELISSA IGLESIAS MD, Ot Z87.19 PERSONAL HISTORY OF OTHER DISEASES OF TH 08/21/2017 MELISSA IGLESIAS MD, Ot Z87.59 PERSONAL HISTORY OF COMP OF PREG, CHLDBR 08/21/2017 MELISSA IGLESIAS MD, Ot Z88.5 ALLERGY STATUS TO NARCOTIC AGENT STATUS 08/21/2017 MELISSA IGLESIAS MD Ot Z88.6 ALLERGY STATUS TO ANALGESIC AGENT STATUS 08/21/2017 MELISSA IGLESIAS MD Ot Z90.49 ACQUIRED ABSENCE OF OTHER SPECIFIED PART 08/21/2017 MELISSA IGLESIAS MD Ot Z90.710 ACQUIRED ABSENCE OF BOTH CERVIX AND UTER 09/10/2017 GANGA PIEDRA MD Ot K55.9 VASCULAR DISORDER OF INTESTINE, UNSPECIF 09/10/2017 GANGA PIEDRA MD Ot K62.5 HEMORRHAGE OF ANUS AND RECTUM 09/10/2017 GANGA PIEDRA MD Ot Z01.818 ENCOUNTER FOR OTHER PREPROCEDURAL EXAMIN 09/13/2017 GANGA PIEDRA MD Ot K55.9 VASCULAR DISORDER OF INTESTINE, UNSPECIF 09/13/2017 GANGA PIEDRA MD Ot K62.5 HEMORRHAGE OF ANUS AND RECTUM 09/13/2017 GANGA PIEDRA MD Ot Z01.818 ENCOUNTER FOR OTHER PREPROCEDURAL EXAMIN 09/13/2017 GANGA PIEDRA MD Ot K55.9 VASCULAR DISORDER OF INTESTINE, UNSPECIF 09/13/2017 GANGA PIEDRA MD Ot K62.5 HEMORRHAGE OF ANUS AND RECTUM 09/13/2017 GANGA PIEDRA MD Ot Z01.818 ENCOUNTER FOR OTHER PREPROCEDURAL EXAMIN 09/16/2017 GANGA PIEDRA MD Ot Z09 ENCNTR FOR F/U EXAM AFT TRTMT FOR COND O 09/16/2017 GANGA PIEDRA MD Ot Z86.010 PERSONAL HISTORY OF COLONIC POLYPS 09/16/2017 GANGA PIEDRA MD Ot Z87.891 PERSONAL HISTORY OF NICOTINE DEPENDENCE 09/16/2017 GANGA PIEDRA MD Ot K55.9 VASCULAR DISORDER OF INTESTINE, UNSPECIF 09/16/2017 GANGA PIEDRA MD Ot K62.5 HEMORRHAGE OF ANUS AND RECTUM 09/16/2017 GANGA PIEDRA MD Ot Z01.818 ENCOUNTER FOR OTHER PREPROCEDURAL EXAMIN 09/16/2017 GANGA PIEDRA MD Ot K55.9 VASCULAR DISORDER OF INTESTINE, UNSPECIF 09/16/2017 GANGA PIEDRA MD Ot K62.5 HEMORRHAGE OF ANUS AND RECTUM 09/16/2017 GANGA PIEDRA MD Ot Z01.818 ENCOUNTER FOR OTHER PREPROCEDURAL EXAMIN 09/17/2017 TADEO KHAN, GANGA Prescott Ot Z09 ENCNTR FOR F/U EXAM AFT TRTMT FOR COND O 09/17/2017 TADEO KHAN, GANGA Prescott Ot Z86.010 PERSONAL HISTORY OF COLONIC POLYPS 09/17/2017 TADEO KHAN, GANGA Prescott Ot Z87.891 PERSONAL HISTORY OF NICOTINE DEPENDENCE 09/23/2017 TADEO KHAN, GANGA Prescott Ot Z09 ENCNTR FOR F/U EXAM AFT TRTMT FOR COND O 09/23/2017 TADEO KHAN, GANGA Prescott Ot Z86.010 PERSONAL HISTORY OF COLONIC POLYPS 09/23/2017 TADEO KHAN, GANGA Prescott Ot Z87.891 PERSONAL HISTORY OF NICOTINE DEPENDENCE 10/28/2017 GARY KHAN, ARUN Beltran Ot F03.90 UNSPECIFIED DEMENTIA WITHOUT BEHAVIORAL 10/28/2017 TADEO KHAN, GANGA Prescott Ot K92.1 MELENA 10/28/2017 TADEO KHAN, GANGA Prescott Ot Z01.818 ENCOUNTER FOR OTHER PREPROCEDURAL EXAMIN 10/28/2017 CARO CAMARA LACE TEARING SUPERVISOR Ot I82.4Z2 AC EMBLSM AND JHONATAN UNSP DEEP VEINS OF 01/01/2018 GEORGE JULIAN W 296.30 MAJOR DEPRESSIVE DISORDER, RECURRENT EPISODE, UNSPECIFIED DEGREE 01/01/2018 IESHA GEORGE W 300.00 ANXIETY STATE, UNSPECIFIED 01/01/2018 IESHA GEORGE W 401.9 UNSPECIFIED ESSENTIAL HYPERTENSION 01/01/2018 GEORGE JULIAN F33.9 MAJOR DEPRESSIVE DISORDER, RECURRENT, UNSPECIFIED 01/01/2018 IESHA GEORGE W F41.9 ANXIETY DISORDER, UNSPECIFIED 01/01/2018 IESHA GEORGE W I10 ESSENTIAL (PRIMARY) HYPERTENSION 01/01/2018 IESHA GEORGE W 296.30 MAJOR DEPRESSIVE DISORDER, RECURRENT EPISODE, UNSPECIFIED DEGREE 01/01/2018 IESHA GEORGE W 300.00 ANXIETY STATE, UNSPECIFIED 01/01/2018 IESHA GEORGE W 401.9 UNSPECIFIED ESSENTIAL HYPERTENSION 01/01/2018 IESHA GEORGE W F33.9 MAJOR DEPRESSIVE DISORDER, RECURRENT, UNSPECIFIED 01/01/2018 IESHA, GEORGE W F41.9 ANXIETY DISORDER, UNSPECIFIED 01/01/2018 IESHA, GEORGE W I10 ESSENTIAL (PRIMARY) HYPERTENSION 01/10/2018 IESHA, GEORGE W 296.30 MAJOR DEPRESSIVE DISORDER, RECURRENT EPISODE, UNSPECIFIED DEGREE 01/10/2018 IESHA, GEORGE W 300.00 ANXIETY STATE, UNSPECIFIED 01/10/2018 IESHA, GEORGE W 401.9 UNSPECIFIED ESSENTIAL HYPERTENSION 01/10/2018 IESHA, GEORGE W F33.9 MAJOR DEPRESSIVE DISORDER, RECURRENT, UNSPECIFIED 01/10/2018 IESHA, GEORGE W F41.9 ANXIETY DISORDER, UNSPECIFIED 01/10/2018 IESHA, GEORGE W I10 ESSENTIAL (PRIMARY) HYPERTENSION 01/10/2018 IESHA, GEORGE W 272.4 01/10/2018 IESHA, GEORGE W 296.30 MAJOR DEPRESSIVE DISORDER, RECURRENT EPISODE, UNSPECIFIED DEGREE 01/10/2018 IESHA, GEORGE A 296.34 01/10/2018 IESHA, GEORGE W 297.1 01/10/2018 IESHA, GEORGE W 300.00 ANXIETY STATE, UNSPECIFIED 01/10/2018 IESHA, GEORGE W 305.1 TOBACCO USE DISORDER 01/10/2018 IESHA, GEORGE W 401.9 UNSPECIFIED ESSENTIAL HYPERTENSION 01/10/2018 IESHA, GEORGE W 530.81 01/10/2018 IESHA, GEORGE W 564.00 CONSTIPATION, UNSPECIFIED 01/10/2018 IESHA, GEORGE W E78.5 HYPERLIPIDEMIA, UNSPECIFIED 01/10/2018 IESHA, GEORGE W F22 DELUSIONAL DISORDERS 01/10/2018 IESHA, GEORGE A F33.3 MAJOR DEPRESSV DISORDER, RECURRENT, SEVERE W PSYCH SYMPTOMS 01/10/2018 IESHA, GEORGE W F33.9 MAJOR DEPRESSIVE DISORDER, RECURRENT, UNSPECIFIED 01/10/2018 IESHA, GEORGE W F41.9 ANXIETY DISORDER, UNSPECIFIED 01/10/2018 IESHA, GEORGE W I10 ESSENTIAL (PRIMARY) HYPERTENSION 01/10/2018 IESHA, GEORGE W K21.9 GASTRO-ESOPHAGEAL REFLUX DISEASE WITHOUT ESOPHAGITIS 01/10/2018 GEORGE JULIAN K59.09 OTHER CONSTIPATION 01/10/2018 GEORGE JULIAN Z72.0 TOBACCO USE 06/23/2018 GARY KHAN, ARUN Beltran Ot F03.90 UNSPECIFIED DEMENTIA WITHOUT BEHAVIORAL 06/23/2018 TADEO KHAN, GANGA Prescott Ot K92.1 MELENA 06/23/2018 TADEO KHAN, GANGA Prescott Ot Z01.818 ENCOUNTER FOR OTHER PREPROCEDURAL EXAMIN 06/23/2018 CARO CAMARA Ot I82.4Z2 AC EMBLSM AND THOMBOS UNSP DEEP VEINS OF 06/23/2018 GARY KHAN, ARUN Beltran Ot F03.90 UNSPECIFIED DEMENTIA WITHOUT BEHAVIORAL 06/23/2018 TADEO KHAN, GANGA Prescott Ot K92.1 MELENA 06/23/2018 TADEO KHAN, GANGA Prescott Ot Z01.818 ENCOUNTER FOR OTHER PREPROCEDURAL EXAMIN 06/23/2018 CARO CAMARAP Ot I82.4Z2 AC EMBLSM AND THOMBOS UNSP DEEP VEINS OF Procedures Code Description [place] [address] ROUTINE VENIPUNCTURE 08/25/2012 03828 CBC 08/25/2012 18282 LIPID PANEL 08/25/2012 86836 CMP 08/25/2012 [id number] GFR CALC (RESULT ONLY) 08/25/2012 04809 GLUCOSE FINGER STICK 12/09/2012 96316 ROUTINE VENIPUNCTURE 05/13/2013 09191 CMP 05/13/2013 20511 ROUTINE VENIPUNCTURE 10/01/2013 92374 CBC 10/01/2013 49486 CMP 10/01/2013 26625 LIPID PANEL 10/01/2013 [id number] GFR CALC (RESULT ONLY) 10/01/2013 38659 TSH 10/01/2013 54627 OXIMETRY 10/02/2013 [id number] EXCISION OF DESCENDING COLON, ENDO, DIAG 08/01/2017 [id number] EXCISION OF RECTUM, ENDO, DIAGN 08/01/2017 Results [...] urinalysis with reflex to culture NO NRG Thyroid Stimulating Hormone - 01/01/18 18:59 TSH 1.29 mIU/mL 0.32-5.00 MRSA Screen - 01/01/18 18:59 FINAL CULTURE RESULTS MRSA Negative Nasal Culture MEDIA PLATED Setup at 19:05 on 01/01/2018 Urinalysis - 01/01/18 19:33 Icotest N/A Negative Urine Crystals Amorphous material: few/HPF Urine Volume Urine Volume Sufficient (10mL) Urine-Appearance Slightly Cloudy Clear Urine-Bacteria Negative Urine-Bilirubin Negative Negative Urine-Blood Negative Negative Urine-Color Yellow Colorless-Lt. Yellow Urine-Epithelial Cells 5-10/HPF Urine-Glucose Negative Negative Urine-Ketones Negative Negative Urine-Leukocytes 1+ Negative Urine-Nitrite Negative Negative Urine-Other Urine Saved if Culture Needed (48hrs from time of collection) Urine-pH 5.5 5-8.5 Urine-Protein Trace Negative Urine-RBC 0-2/HPF Urine-Specific [place] >=1.030 1.000-1.030 Urine-WBC 5-10/HPF Urobilinogen 0.2 0.2-1.0 Complete blood count (CBC) with automated white blood cell (WBC) differential - 06/23/18 17:15 Blood leukocytes automated count (number/volume) 7.3 10*3/uL 4.3-11.0 Blood erythrocytes automated count (number/volume) 4.36 10*6/uL 4.35-5.85 Venous blood hemoglobin measurement (mass/volume) 13.6 g/dL 11.5-16.0 Blood hematocrit (volume fraction) 41 % 35-52 Automated erythrocyte mean corpuscular volume 94 [foz_us] 80-99 Automated erythrocyte mean corpuscular hemoglobin (mass per erythrocyte) 31 pg 25-34 Automated erythrocyte mean corpuscular hemoglobin concentration measurement ( mass/volume) 33 g/dL 32-36 Automated erythrocyte distribution width ratio 15.6 % 10.0-14.5 Automated blood platelet count (count/volume) 214 10*3/uL 130-400 Automated blood platelet mean volume measurement 10.1 [foz_us] 7.4-10.4 Automated blood neutrophils/100 leukocytes 59 % 42-75 Automated blood lymphocytes/100 leukocytes 28 % 12-44 Blood monocytes/100 leukocytes 12 % 0-12 Automated blood eosinophils/100 leukocytes 2 % 0-10 Automated blood basophils/100 leukocytes 0 % 0-10 Blood neutrophils automated count (number/volume) 4.3 10*3 1.8-7.8 Blood lymphocytes automated count (number/volume) 2.0 10*3 1.0-4.0 Blood monocytes automated count (number/volume) 0.9 10*3 0.0-1.0 Automated eosinophil count 0.1 10*3/uL 0.0-0.3 Automated blood basophil count (count/volume) 0.0 10*3/uL 0.0-0.1 Comprehensive metabolic panel - 06/23/18 17:15 Serum or plasma sodium measurement (moles/volume) 141 mmol/L 135-145 Serum or plasma potassium measurement (moles/volume) 3.9 mmol/L 3.6-5.0 Serum or plasma chloride measurement (moles/volume) 103 mmol/L 98-107 Carbon dioxide 25 mmol/L 21-32 Serum or plasma anion gap determination (moles/volume) 13 mmol/L 5-14 Serum or plasma urea nitrogen measurement (mass/volume) 13 mg/dL 7-18 Serum or plasma creatinine measurement (mass/volume) 0.77 mg/dL 0.60-1.30 Serum or plasma urea nitrogen/creatinine mass ratio 17 NRG Serum or plasma creatinine measurement with calculation of estimated glomerular filtration rate > NRG Serum or plasma glucose measurement (mass/volume) 102 mg/dL 70-105 Serum or plasma calcium measurement (mass/volume) 9.3 mg/dL 8.5-10.1 Serum or plasma total bilirubin measurement (mass/volume) 0.7 mg/dL 0.1-1.0 Serum or plasma alkaline phosphatase measurement (enzymatic activity/volume) 79 U/L 40-136 Serum or plasma aspartate aminotransferase measurement (enzymatic activity/ volume) 18 U/L 5-34 Serum or plasma alanine aminotransferase measurement (enzymatic activity/volume ) 15 U/L 0-55 Serum or plasma protein measurement (mass/volume) 6.8 g/dL 6.4-8.2 Serum or plasma albumin measurement (mass/volume) 4.2 g/dL 3.2-4.5 CALCIUM CORRECTED 9.1 mg/dL 8.5-10.1 PT panel in platelet poor plasma by coagulation assay - 06/23/18 17:15 Prothrombin time (PT) in platelet poor plasma by coagulation assay 12.5 s 12.2-14.7 INR in platelet poor plasma or blood by coagulation assay 0.9 0.8-1.4 Activated partial thromboplastin time (aPTT) in platelet poor plasma bycoagulation assay - 06/23/18 17:15 Activated partial thromboplastin time (aPTT) in platelet poor plasma bycoagulation assay 28 s 24-35 Fibrin D-dimer FEU measurement in platelet poor plasma (mass/volume) - 17:15 Fibrin D-dimer FEU measurement in platelet poor plasma (mass/volume) 2.70 ug/mL 0.00-0.49 Complete urinalysis with reflex to culture - 06/23/18 18:50 Urine color determination YANG NRG Urine clarity determination SLIGHTLY CLOUDY NRG Urine pH measurement by test strip 6 5-9 Specific gravity of urine by test strip 1.025 1.016- 1.022 Urine protein assay by test strip, semi-quantitative 2+ NEGATIVE Urine glucose detection by automated test strip NEGATIVE NEGATIVE Erythrocytes detection in urine sediment by light microscopy NEGATIVE NEGATIVE Urine ketones detection by automated test strip NEGATIVE NEGATIVE Urine nitrite detection by test strip NEGATIVE NEGATIVE Urine total bilirubin detection by test strip NEGATIVE NEGATIVE Urine urobilinogen measurement by automated test strip (mass/volume) 1 mg/dL NORMAL Urine leukocyte esterase detection by dipstick 1+ NEGATIVE Automated urine sediment erythrocyte count by microscopy (number/high power field) NONE NRG Automated urine sediment leukocyte count by microscopy (number/high power field ) [HPF] NRG Bacteria detection in urine sediment by light microscopy TRACE NRG Squamous epithelial cells detection in urine sediment by light microscopy 5-10 NRG Crystals detection in urine sediment by light microscopy NONE NRG Casts detection in urine sediment by light microscopy NONE NRG Mucus detection in urine sediment by light microscopy SMALL NRG Complete urinalysis with reflex to culture NO NRG Renal epithelial cells detection in urine sediment by light microscopy RARE NRG Encounters ACCT No. Visit Date/Time Discharge Status Pt. Type Provider Facility Loc./Unit Complaint [id number] 09/10/2014 09:56:00 09/10/2014 23:59:59 CLS Outpatient DEANA LEWIS [id number] 09/10/2014 09:56:00 09/10/2014 23:59:59 CLS Outpatient DEANA LEWIS [id number] 03/09/2014 10:44:00 03/09/2014 23:59:59 CLS Outpatient DANIEL BROUSSARD APRN [id number] 02/01/2014 11:46:00 02/01/2014 23:59:59 CLS Outpatient MORENA MONTENEGRO APRN [id number] 12/07/2013 13:57:00 12/07/2013 23:59:59 CLS Outpatient DANIEL BROUSSARD APRN [id number] 10/02/2013 12:18:00 10/02/2013 23:59:59 CLS Outpatient EVELYN ZULETA D[place] [place] [id number] 06/04/2013 10:41:00 06/04/2013 23:59:59 CLS Outpatient MERLYN CURRANARTI [id number] 05/13/2013 13:57:00 05/13/2013 23:59:59 CLS Outpatient MERLYN CURRAN ARTI [place] [id number] 04/29/2013 16:02:00 04/29/2013 23:59:59 CLS Outpatient ARUN VEGA MD [id number] 03/02/2013 15:54:00 03/02/2013 23:59:59 CLS Outpatient MERLYN CURRAN ARTI K [id number] 02/25/2013 15:30:00 02/25/2013 23:59:59 CLS Outpatient MERLYN CURRANARTI [id number] 08/27/2012 15:21:00 08/27/2012 23:59:59 CLS Outpatient TRENT STORM DO [id number] 08/25/2012 08:40:00 08/25/2012 23:59:59 CLS Outpatient MORENA MONTENEGRO APRN [id number] 08/13/2012 09:20:00 08/13/2012 23:59:59 CLS Outpatient [id number] 07/29/2012 15:28:00 07/29/2012 23:59:59 CLS Outpatient TRENT STORM DO [id number] 05/14/2012 15:43:00 05/14/2012 23:59:59 CLS Outpatient MORENA MONTENEGRO APRN [id number] 03/12/2012 15:26:00 03/12/2012 23:59:59 CLS Outpatient MORENA MONTENEGRO APRN [id number] 12/09/2012 07:43:00 Document Registration [id number] 11/10/2012 14:37:00 Document Registration [id number] 05/22/2018 09:40:00 05/22/2018 23:59:59 CLS Outpatient MORENA MONTENEGRO APRN [facility] [id number] 01/01/2018 18:33:00 01/10/2018 15:55:00 [id number] 09/09/2017 08:53:00 09/09/2017 08:53:00 CAN Inpatient Rich Gates [id number] 09/09/2017 11:53:41 Document Registration [id number] 02/23/2017 09:09:00 Document Registration [id number] 09/16/2017 08:56:00 09/16/2017 12:10:00 DIS Outpatient GANGA PIEDRA MD [facility] ENDO ISCHEMIC COLITIS/ RECTAL BLEEDING [id number] 09/13/2017 10:00:00 09/13/2017 10:42:00 DIS Outpatient GANGA PIEDRA MD [facility] PREOP COLONOSCOPY [id number] 08/19/2017 09:56:00 08/19/2017 13:37:00 DIS Emergency MELISSA IGLESIAS MD [facility] ER DVT [id number] 08/13/2017 12:03:00 08/13/2017 23:59:59 CLS Outpatient CARO CAMARA [facility] RAD RULE OUT DVT [id number] 07/30/2017 11:33:00 08/02/2017 16:18:00 DIS Inpatient MALGORZATA COON DO E [facility] 4TH N/V, DEHYDRATION, RECTAL BLEEDING [id number] 07/30/2017 05:42:00 07/30/2017 23:59:59 CLS Outpatient GANGA PIEDRA MD [facility] PREOP COLONOSCOPY/EGD [id number] 07/29/2017 09:18:00 07/29/2017 13:45:00 DIS Emergency MELISSA IGLESIAS MD [facility] ER ANAL BLEED [id number] 12/28/2015 14:02:00 12/28/2015 23:59:59 CLS Outpatient GARY KHAN, ARUN Beltran [facility] RAD DEMENTIA [id number] 06/23/2018 16:45:00 ACT Emergency KELSIE KHAN, MELISSA Morgan [facility] ER BILAT LEG/FOOT SWELLING
== END 2018-06-23 20:45 | disposition home or self-care (01) ==
LOC: EDUNIT# 16:43 → ER 16:45
DX: S30.91XA Unspecified superficial injury of lower back and pelvis, initial encounter (principal); S30.92XA Unspecified superficial injury of abdominal wall, initial encounter; K59.00 Constipation, unspecified; R79.89 Other specified abnormal findings of blood chemistry; F03.90 Unspecified dementia, unspecified severity, without behavioral disturbance, psychotic disturbance, mood disturbance, and anxiety; K21.9 Gastro-esophageal reflux disease without esophagitis; F41.9 Anxiety disorder, unspecified; F32.9 Major depressive disorder, single episode, unspecified; Z87.19 Personal history of other diseases of the digestive system; Z87.891 Personal history of nicotine dependence; Z90.49 Acquired absence of other specified parts of digestive tract; Z98.890 Other specified postprocedural states; Z90.710 Acquired absence of both cervix and uterus; Z86.718 Personal history of other venous thrombosis and embolism; Z79.01 Long term (current) use of anticoagulants; Z88.5 Allergy status to narcotic agent; Z88.8 Allergy status to other drugs, medicaments and biological substances; W19.XXXA Unspecified fall, initial encounter
CPT/HCPCS: 36415; 70450; 71045; 72125; 74177; 80053; 81000; 85025; 85379; 85610; 85730

== ENCOUNTER → 2018-06-24 | Outpatient (CLI) | payer MEDICARE, OTHER ==
[~2018-06-24] MED LIST changes: +POLY119P5 PO
--- NOTE | 2018-06-24 15:37 | Diagnostic Imaging Report ---
PROCEDURE: US Venous Lower Ext Donta. TECHNIQUE: Multiple real-time grayscale images were obtained over the lower extremities in various projections, bilaterally. Additional duplex Doppler and color Doppler images were also obtained. INDICATION: Bilateral lower extremity edema and elevated D-dimer. FINDINGS: Right lower extremity deep venous system shows normal compressibility with normal response to augmentation and Valsalva. Left common femoral vein is patent. There is occlusive thrombus identified throughout the superficial femoral vein. There appears to be some partially occlusive thrombus in the popliteal vein. Posterior tibial vein appears patent. There are no fluid collections. IMPRESSION: 1. No evidence of right lower extremity DVT. There is extensive DVT throughout the left superficial femoral vein and popliteal vein. Dictated by: Dictated on workstation # [id number]
== END ==
LOC: RAD 13:41
PROVIDERS: ATTEND Family Medicine
DX: I82.412 Acute embolism and thrombosis of left femoral vein (principal); I82.432 Acute embolism and thrombosis of left popliteal vein
CPT/HCPCS: 93970

== ENCOUNTER 2018-07-01 13:49 | Emergency (ER) | payer MEDICARE, OTHER ==
[~2018-07-01] VITALS: Ht 172.7 cm; Wt 99.8 kg
[~2018-07-01 13:49] MED LIST changes: -ACET325C PO; +ACET325C3 PO; +METR-145 PO; -METR-197 PO
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
[2018-07-01] MEDS ORDERED: NS IV 1000 ML 1,000 ML IV ONE (14:20)
[2018-07-01 14:26] LABS: BASOPHILS % (AUTO) 0 % (0-10); EOSINOPHILS # (AUTO) 0.1 10^3/uL (0.0-0.3); EOSINOPHILS % (AUTO) 1 % (0-10); HEMATOCRIT 36 % (35-52); HEMOGLOBIN 11.9 G/DL (11.5-16.0); LYMPHOCYTES # (AUTO) 1.7 X 10^3 (1.0-4.0); LYMPHOCYTES % (AUTO) 22 % (12-44); MEAN CORPUSCULAR HEMOGLOBIN 31 PG (25-34); MEAN CORPUSCULAR HGB CONC 33 G/DL (32-36); MEAN CORPUSCULAR VOLUME 95 FL (80-99); MONOCYTES # (AUTO) 0.7 X 10^3 (0.0-1.0); MONOCYTES % (AUTO) 9 % (0-12); NEUTROPHILS # (AUTO) 5.4 X 10^3 (1.8-7.8); NEUTROPHILS % (AUTO) 68 % (42-75); PLATELET COUNT 322 10^3/uL (130-400); RED CELL DISTRIBUTION WIDTH 16.5 % (10.0-14.5); WHITE BLOOD COUNT 7.8 10^3/uL (4.3-11.0)
--- NOTE | 2018-07-01 14:34 | Diagnostic Imaging Report ---
INDICATION: Low oxygen saturation. TIME OF EXAMINATION: 02:26 p.m. COMPARISON: Correlation is made with prior chest from 06/23/2018. FINDINGS: The heart is enlarged but stable. There is some scarring or subsegmental atelectasis in the right base similar to prior study. The pulmonary vascularity is normal. No failure is seen. No effusion or pneumothorax is detected. IMPRESSION: Stable chest. No acute cardiopulmonary process is detected. Dictated by: Dictated on workstation # [id number]
[2018-07-01 14:38] LABS: ALANINE AMINOTRANSFERASE 10 U/L (0-55); ALBUMIN 3.8 GM/DL (3.2-4.5); ALKALINE PHOSPHATASE 74 U/L (40-136); BILIRUBIN,TOTAL 0.5 MG/DL (0.1-1.0); BUN/CREATININE RATIO 14; CALCIUM 9.3 MG/DL (8.5-10.1); CARBON DIOXIDE 28 MMOL/L (21-32); CHLORIDE 103 MMOL/L (98-107); CREATININE SERUM 0.73 MG/DL (0.60-1.30); GFR ESTIMATED > 60; GLUCOSE 116 MG/DL (70-105); POTASSIUM 4.4 MMOL/L (3.6-5.0); SODIUM 140 MMOL/L (135-145); TOTAL PROTEIN 6.4 GM/DL (6.4-8.2)
--- NOTE | 2018-07-01 15:05 | ED Respiratory ---
General Chief Complaint: Respiratory Problems Stated Complaint: LOW O2 Nursing Triage Note: PT PRESENTS FROM CUSTODIAL. PT WAS DIAGNOSED WITH DVT LAST WEEK, O2 LEVEL 88 % SINCE LAST NIGHT. EMS STATES FACILITY DID NOT PLACE PT ON OXYGEN. PT WAS PLACED ON O2 BY EMS AT 2L, O2 LEVEL 96%. PT HAS DEMENTIA AND IS UNABLE TO ANSWER ANY QUESTIONS. Source: patient Exam Limitations: no limitations History of Present Illness Date Seen by Provider: Jul 01, 2018 Time Seen by Provider: 14:15 Initial Comments Here by EMS with report of low O2 sats. Recently was diagnosed with DVT last week although has had some chronic DVT since last August. She is currently on Eliquis at the initiating dose and is not typically on oxygen. She has long history of smoking and currently still smokes. Does have history of dementia and she stays at [facility]. She is not normally prescribed oxygen. Timing/Duration: yesterday, getting worse Severity: moderate Prior Episodes/Possible Cause: occasional episodes Associated Symptoms: No cough, No fever/chills; shortness of breath; No wheezing Allergies and Home Medications Allergies Coded Allergies: morphine (Verified Allergy, Intermediate, 08/01/17) butorphanol (Verified Allergy, Unknown, 08/01/17) Home Medications Acetaminophen 325 Mg Capsule, 650 MG PO Q4H PRN for pain/fever, (Reported) take 2 (325mg) tabs Apixaban 5 Mg Tablet, 5 MG PO BID, (Reported) Apixaban 5 Mg Tablet, 5 MG PO BID Prescribed by: MELISSA ALEXANDER on 06/23/182019 Buspirone HCl 10 Mg Tablet, 10 MG PO BID, (Reported) Lisinopril 10 Mg Tablet, 10 MG PO DAILY, (Reported) Lovastatin 20 Mg Tablet, 20 MG PO HS, (Reported) Nicotine 1 Each Patch.dysq, 14 MG TD DAILY, (Reported) Pantoprazole Sodium 40 Mg Tablet.dr, 40 MG PO DAILY, (Reported) Polyethylene Glycol 3350 119 Gm Powder, 17 GM PO BID PRN for CONSTIPATION-1ST LINE Prescribed by: MELISSA ALEXANDER on 06/23/182019 Quetiapine Fumarate 150 Mg Tab.er.24h, 150 MG PO HS, (Reported) Trihexyphenidyl HCl 2 Mg Tablet, 1 MG PO BID, (Reported) take 1/2 of 2mg tab Patient Home Medication List Home Medication List Reviewed: Yes Review of Systems Review of Systems Constitutional: see HPI; No chills, No fever EENTM: no symptoms reported Respiratory: short of breath; No wheezing Cardiovascular: No chest pain, No edema Gastrointestinal: No abdominal pain, No nausea, No vomiting Genitourinary: no symptoms reported Musculoskeletal: no symptoms reported Skin: no symptoms reported All Other Systems Reviewed Negative Unless Noted: Yes Past Efrcgcm-Rsxbnt-Qmnrvp Hx Past Med/Social Hx: Reviewed Nursing Past Med/Soc Hx Patient Social History Alcohol Use: Denies Use Recreational Drug Use: Yes (alcohol) Type Used: Cigarettes Former Smoker, Quit: Jul 16, 2017 2nd Hand Smoke Exposure: Yes Recent Foreign Travel: No Contact w/Someone Who Travel: No Recent Infectious Disease Expo: No Recent Hopitalizations: No Physical Abuse: No Sexual Abuse: No Immunizations Up To Date Date of Influenza Vaccine: Mar 25, 2017 Seasonal Allergies Seasonal Allergies: No Past Medical History Surgeries: Yes Appendectomy, Section, Hysterectomy Respiratory: No Cardiac: Yes Deep Vein Thrombosis, High Cholesterol, Hypertension Neurological: Yes (ELECTRIC SHOCK TREATMENT ( LAST ONE 14 YRS. AGO)) Dementia Reproductive Disorders: No Sexually Transmitted Disease: No HIV/AIDS: No Genitourinary: No Gastrointestinal: Yes ( BOWEL ISSUES, LOSS APPETITE) Colitis, Gastroesophageal Reflux Musculoskeletal: No Endocrine: No HEENT: Yes Loss of Vision: Bilateral Hearing Impairment: Denies Cancer: No Psychosocial: Yes Anxiety, Depression Integumentary: No Blood Disorders: No Adverse Reaction/Blood Tranf: No (N/A) Family Medical History Reviewed Nursing Family Hx Physical Exam Vital Signs - First Documented 07/01/18 07/01/18 13:50 16:25 Temp 97.2 Pulse 91 Resp 16 B/P (MAP) 126/92 (103) Pulse Ox 96 O2 Delivery Nasal Cannula O2 Flow Rate 0.50 Capillary Refill : Less Than 3 Seconds Height: 5'8.00" Weight: 220lbs. 0oz. 99.473233pj; 28.2 BMI Method:Estimated General Appearance: WD/WN, no apparent distress HEENT: PERRL/EOMI, pharynx normal Neck: full range of motion, supple Respiratory: lungs clear, normal breath sounds Cardiovascular: regular rate, rhythm, no murmur Gastrointestinal: non tender, soft Extremities: non-tender, normal inspection Neurologic/Psychiatric: alert, depressed affect (baseline per family) Skin: normal color, warm/dry Progress/Results/Core Measures Suspected Sepsis Recent Fever Within 48 Hours: No Infection Criteria Present: None New/Unexplained Altered Menta: No Sepsis Screen: No Definite Risk SIRS Temperature:97.2 Pulse: 91 Respiratory Rate: 16 Laboratory Tests 07/01/18 13:56: White Blood Count 7.8 Blood Pressure 126 /92 Mean: 103 Laboratory Tests 07/01/18 13:56: Creatinine 0.73, Platelet Count 322, Total Bilirubin 0.5 Results/Orders Lab Results Laboratory Tests Test 07/01/18 13:56 Range/Units White Blood Count 7.8 4.3-11.0 10^3/uL Red Blood Count 3.80 L 4.35-5.85 10^6/uL Hemoglobin 11.9 11.5-16.0 G/DL Hematocrit 36 35-52 % Mean Corpuscular Volume 95 80-99 FL Mean Corpuscular Hemoglobin 31 25-34 PG Mean Corpuscular Hemoglobin Concent 33 32-36 G/DL Red Cell Distribution Width 16.5 H 10.0-14.5 % Platelet Count 322 130-400 10^3/uL Mean Platelet Volume 10.0 7.4-10.4 FL Neutrophils (%) (Auto) 68 42-75 % Lymphocytes (%) (Auto) 22 12-44 % Monocytes (%) (Auto) 9 0-12 % Eosinophils (%) (Auto) 1 0-10 % Basophils (%) (Auto) 0 0-10 % Neutrophils # (Auto) 5.4 1.8-7.8 X 10^3 Lymphocytes # (Auto) 1.7 1.0-4.0 X 10^3 Monocytes # (Auto) 0.7 0.0-1.0 X 10^3 Eosinophils # (Auto) 0.1 0.0-0.3 10^3/uL Basophils # (Auto) 0.0 0.0-0.1 10^3/uL Sodium Level 140 135-145 MMOL/L Potassium Level 4.4 3.6-5.0 MMOL/L Chloride Level 103 98-107 MMOL/L Carbon Dioxide Level 28 21-32 MMOL/L Anion Gap 9 5-14 MMOL/L Blood Urea Nitrogen 10 7-18 MG/DL Creatinine 0.73 0.60-1.30 MG/DL Estimat Glomerular Filtration Rate > 60 BUN/Creatinine Ratio 14 Glucose Level 116 H 70-105 MG/DL Calcium Level 9.3 8.5-10.1 MG/DL Corrected Calcium 9.5 8.5-10.1 MG/DL Total Bilirubin 0.5 0.1-1.0 MG/DL Aspartate Amino Transf (AST/SGOT) 19 5-34 U/L Alanine Aminotransferase (ALT/SGPT) 10 0-55 U/L Alkaline Phosphatase 74 40-136 U/L C-Reactive Protein High Sensitivity 1.58 H 0.00-0.50 MG/DL Total Protein 6.4 6.4-8.2 GM/DL Albumin 3.8 3.2-4.5 GM/DL My Orders Orders - RAMON BERRY MD Cbc With Automated Diff (07/01/18 14:20) Comprehensive Metabolic Panel (07/01/18 14:20) Hs C Reactive Protein (07/01/18 14:20) Chest 1 View, Ap/Pa Only (07/01/18 14:20) Ns Iv 1000 Ml (Sodium Chloride 0.9%) (07/01/18 14:20) Ct Angio Chest W (07/01/18 14:52) Iohexol Injection (Omnipaque 350 Mg/Ml 1 (07/01/18 15:15) Contrast Received (Contrast Received) (07/01/18 15:15) Ns (Ivpb) (Sodium Chloride 0.9% Ivpb Bag (07/01/18 15:15) Albuterol/Ipra Inhalation Soln (Duoneb I (07/01/18 15:30) Svn Small Volume Nebulizer (07/01/18 15:21) Foot, Bilateral, 2 Views (07/01/18 16:12) Ondansetron Injection (Zofran Injectio (07/01/18 17:45) Foot, Left, 3 Views (07/01/18 17:47) Prednisone Tablet (Deltasone Tablet) (07/01/18 18:00) Rx-Albuterol Inhaler (Rx-Proair) (07/01/18 18:15) Medications Given in ED Current Medications Medications Dose Ordered Sig/Akira Route Start Time Stop Time Status Last Admin Dose Admin Albuterol Sulfate 2 PUFFS QID PRN IH 07/01/18 18:15 07/01/18 18:08 8 GM Albuterol/ Ipratropium 3 ml ONCE ONCE INH 07/01/18 15:30 07/01/18 15:31 DC 07/01/18 16:05 3 ML Iohexol 150 ml ONCE ONCE IV 07/01/18 15:15 07/01/18 15:16 DC 07/01/18 15:19 140 ML Ondansetron HCl 4 mg ONCE ONCE IVP 07/01/18 17:45 07/01/18 17:46 DC 07/01/18 17:49 4 MG Prednisone 40 mg ONCE ONCE PO 07/01/18 18:00 07/01/18 18:01 DC 07/01/18 18:06 40 MG Sodium Chloride 100 ml ONCE ONCE IV 07/01/18 15:15 07/01/18 15:16 DC 07/01/18 15:19 80 ML Sodium Chloride 1,000 ml @ 0 mls/hr Q0M ONCE IV 07/01/18 14:20 07/01/18 14:22 DC 07/01/18 14:25 1,000 MLS/HR Vital Signs/I&O 07/01/18 07/01/18 13:50 16:25 Temp 97.2 Pulse 91 Resp 16 B/P (MAP) 126/92 (103) Pulse Ox 96 100 O2 Delivery Nasal Cannula O2 Flow Rate 0.50 Capillary Refill : Less Than 3 Seconds Blood Pressure Mean: 103 Progress Note : Progress Note Seen and evaluated. IV by EMS. Labs and chest x-ray ordered. Normal saline 1 L bolus. We will continue O2 via nasal cannula started by EMS at 2 L. This did improve her O2 sat to 94 percent. 1500: We will get CT angiogram of the chest due to the DVT and new-onset hypoxia. We will do a DuoNeb after and see if this improves her oxygenation as well. 1730: DuoNeb did markedly improve her situation. Prednisone 40 mg by mouth ordered. Foot x-rays ordered as patient does have bruising to her feet and daughters reporting increased pain. Bilateral foot x-ray does have questionable fracture to the left first metatarsal. Dedicated film ordered. 1814: Left foot does show metatarsal fracture of the base of the first and second metatarsals. Walking boot to be placed. Patient is in assisted living situation. She is being assisted up and down. She can wear her boot when moving. Daughter informed about follow-up with orthopedist. She is following up with Dr. Khan on for our initial appointment. I will send a copy of the chart to her. Overall doing better and not requiring oxygen with O2 sat of 95 percent on room air and heart rate of 84. Discharged home with return precautions. Patient and family verbalize understanding instructions and agreement with plan. Diagnostic Imaging Diagonstic Imaging: Xray Plain Films/CT/US/NM/MRI: chest Comments [facility] [place], [place] NAME: J[facility] ST[facility]ENS [facility] REC#: [id number] PT STATUS: REG ER : 1950 PHYSICIAN: RAMON BERRY MD ADMIT DATE: 07/01/18/ER Draft Date of Exam:07/01/18 CHEST 1 VIEW, AP/PA ONLY INDICATION: Low oxygen saturation. TIME OF EXAMINATION: 02:26 p.m. COMPARISON: Correlation is made with prior chest from 06/23/2018. FINDINGS: The heart is enlarged but stable. There is some scarring or subsegmental atelectasis in the right base similar to prior study. The pulmonary vascularity is normal. No failure is seen. No effusion or pneumothorax is detected. IMPRESSION: Stable chest. No acute cardiopulmonary process is detected. Dictated on workstation # [id number] Dict: 07/01/18 1431 Trans: 07/01/18 1434 [facility] [id number] Interpreted by: MARIAH OWENS MD Electronically signed by: Diagonstic Imaging: CT Plain Films/CT/US/NM/MRI: chest Comments NAME: [facility] REC#: [id number] PT STATUS: REG ER : 1950 PHYSICIAN: RAMON BERRY MD ADMIT DATE: 07/01/18/ER Draft Date of Exam:07/01/18 CT ANGIO CHEST W PROCEDURE: CT angiography of the chest with contrast. TECHNIQUE: Multiple contiguous axial images were obtained through the chest after uneventful bolus administration of intravenous contrast. 2D reconstructed CTA MIP acquisitions were also performed. INDICATION : Shortness of air with prior history of DVT. FINDINGS: Evaluation of the pulmonary arterial system is without evidence of thromboembolism. No filling defects are seen within central, lobar, or segmental branches. The thoracic aorta is of normal caliber. No dissection is seen. There does appear to be a small amount of pericardial fluid. No pleural fluid is seen. No axillary lymphadenopathy is detected. No definite hilar or mediastinal lymphadenopathy is identified. Parenchymal evaluation does show centrilobular emphysematous changes. There are areas of linear parenchymal density in the bilateral lower lobes and lingula, suggestive of subsegmental atelectasis or scarring. No infiltrate or mass is seen. The upper abdomen does show multiple stones within the gallbladder. The right adrenal mass previously described on CT is again noted. IMPRESSION: 1. No evidence of pulmonary embolism or thoracic aortic dissection. 2. Small pericardial effusion. 3. Bibasilar subsegmental atelectasis or scarring. 4. Cholelithiasis. 5. Right adrenal mass. Dictated on workstation # [id number] Dict: 07/01/18 1536 Trans: 07/01/18 1544 [id number] Interpreted by: MARIAH OWENS MD Electronically signed by: Diagonstic Imaging: Xray Plain Films/CT/US/NM/MRI: other Comments NAME: [facility] REC#: [id number] PT STATUS: REG ER : 1950 PHYSICIAN: RAMON BERRY MD ADMIT DATE: 07/01/18/ER Signed Date of Exam: 07/01/18 FOOT, BILATERAL, 2 VIEWS INDICATION: Fall with bilateral foot pain. TIME OF EXAM: 4:32 PM FINDINGS: There is a slightly obliquely oriented lucency involving the proximal aspect of the first metatarsal on the left. A fracture cannot be entirely excluded. This is not well seen on lateral imaging. Remaining metatarsals appear intact. Right foot is unremarkable. Midfoot and hindfoot are unremarkable bilaterally. IMPRESSION: Lucency at the proximal aspect of the left first metatarsal, considerations above. Dedicated left foot radiographs with oblique imaging would be useful for further evaluation if clinically indicated. Correlation to pain at this location is recommended. Dictated by: Dictated on workstation # [id number] Dict: 07/01/18 1708 Trans: 07/01/181736 Interpreted by: MARIAH OWENS MD Electronically signed by: MARIAH OWENS MD 07/01/181736 Reviewed: Reviewed by Me Diagonstic Imaging: Xray Plain Films/CT/US/NM/MRI: other Comments NAME: [facility] REC#: [id number] PT STATUS: REG ER : 1950 PHYSICIAN: RAMON BERRY MD ADMIT DATE: 07/01/18/ER Signed Date of Exam: 07/01/18 FOOT, LEFT, 3 VIEWS INDICATION: Follow up possible fracture of the left foot. TIME OF EXAM: 5:53 p.m. FINDINGS: Three views of the left foot were obtained. A lucency through the base of the first metatarsal is again noted and similar in appearance to prior exam. This again is suspicious for a nondisplaced fracture. Also is a lucency on oblique view at the base of the second metatarsal. This too is suspicious for a nondisplaced fracture. No other suspicious abnormalities are seen. Midfoot and hindfoot are unremarkable. Phalanges are unremarkable. IMPRESSION: Findings suspicious for nondisplaced fractures at the base of the first and second metatarsals. Dictated by: Dictated on workstation # [id number] Dict: 07/01/18 1800 Trans: 07/01/181805 Interpreted by: MARIAH OWENS MD Electronically signed by: MARIAH OWENS MD 07/01/181805 Reviewed: Reviewed by Me Departure Impression Primary Impression: COPD exacerbation Additional Impressions: Fracture of metatarsal bone of left foot Qualified Codes: S92.315A - Nondisplaced fracture of first metatarsal bone, left foot, initial encounter for closed fracture Fracture of metatarsal bone Qualified Codes: S92.325A - Nondisplaced fracture of second metatarsal bone, left foot, initial encounter for closed fracture Disposition: 01 HOME, SELF-CARE Condition: Improved Departure-Patient Inst. Decision time for Depature: 18:22 Referrals: ARUN VEGA MD (PCP/Family) Primary Care Physician MARIANELA KHAN MICHAEL P MD Patient Instructions: Exacerbation of COPD (DC), Foot Fracture (DC) Add. Discharge Instructions: All discharge instructions reviewed with patient and/or family. Voiced understanding. Use walking boot to left foot at a time when moving about. You do not need to wear this while in bed. She should wear this for transfers. Follow up with your regular care doctor on as scheduled. You should follow-up with the orthopedist listed for of your choosing within one week for recheck and further evaluation. Call their office for appointment. You may use Tylenol/ acetaminophen 1000 mg every 6 hours as needed for pain. Take other medications as prescribed. Return for worse pain, swelling, weakness, breathing problems or other concerns as needed. Scripts Prednisone (Prednisone) 20 Mg Tab 40 MG PO DAILY, #8 TAB 0 Refills Prov: RAMON BERRY MD 07/01/18 Copy Copies To 1: MARIANELA KHAN TIMOTHY D MD Jul 01, 2018 15:05
[2018-07-01] MEDS ORDERED: IOHEXOL 350 MG/ML 150 ML (OMNIPAQUE 350) VIAL IV ONE (15:15)
[2018-07-01] MEDS ORDERED: RECEIVED CONTRAST (Hold Metformin) IV SCH (15:15)
[2018-07-01] MEDS ORDERED: NS 100 ML (IVPB) BAG IV ONE (15:15)
[2018-07-01] MEDS ORDERED: RT-ALBUTEROL/IPRATROPIUM 3 ML (DUONEB) VIAL INH ONE (15:30)
--- NOTE | 2018-07-01 15:45 | Diagnostic Imaging Report ---
PROCEDURE: CT angiography of the chest with contrast. TECHNIQUE: Multiple contiguous axial images were obtained through the chest after uneventful bolus administration of intravenous contrast. 2D reconstructed CTA MIP acquisitions were also performed. INDICATION: Shortness of air with prior history of DVT. FINDINGS: Evaluation of the pulmonary arterial system is without evidence of thromboembolism. No filling defects are seen within central, lobar, or segmental branches. The thoracic aorta is of normal caliber. No dissection is seen. There does appear to be a small amount of pericardial fluid. No pleural fluid is seen. No axillary lymphadenopathy is detected. No definite hilar or mediastinal lymphadenopathy is identified. Parenchymal evaluation does show centrilobular emphysematous changes. There are areas of linear parenchymal density in the bilateral lower lobes and lingula, suggestive of subsegmental atelectasis or scarring. No infiltrate or mass is seen. The upper abdomen does show multiple stones within the gallbladder. The right adrenal mass previously described on CT is again noted. IMPRESSION: 1. No evidence of pulmonary embolism or thoracic aortic dissection. 2. Small pericardial effusion. 3. Bibasilar subsegmental atelectasis or scarring. 4. Cholelithiasis. 5. Right adrenal mass. Dictated by: Dictated on workstation # [id number]
--- NOTE | 2018-07-01 17:35 | Diagnostic Imaging Report ---
INDICATION: Fall with bilateral foot pain. TIME OF EXAM: 4:32 PM FINDINGS: There is a slightly obliquely oriented lucency involving the proximal aspect of the first metatarsal on the left. A fracture cannot be entirely excluded. This is not well seen on lateral imaging. Remaining metatarsals appear intact. Right foot is unremarkable. Midfoot and hindfoot are unremarkable bilaterally. IMPRESSION: Lucency at the proximal aspect of the left first metatarsal, considerations above. Dedicated left foot radiographs with oblique imaging would be useful for further evaluation if clinically indicated. Correlation to pain at this location is recommended. Dictated by: Dictated on workstation # [id number]
[2018-07-01] MEDS ORDERED: ONDANSETRON 4 MG/2 ML (SDV) Z0FRAN IVP ONE (17:45)
[2018-07-01] MEDS ORDERED: predniSONE 20 MG TAB PO ONE (18:00)
--- NOTE | 2018-07-01 18:04 | Diagnostic Imaging Report ---
INDICATION: Follow up possible fracture of the left foot. TIME OF EXAM: 5:53 p.m. FINDINGS: Three views of the left foot were obtained. A lucency through the base of the first metatarsal is again noted and similar in appearance to prior exam. This again is suspicious for a nondisplaced fracture. Also is a lucency on oblique view at the base of the second metatarsal. This too is suspicious for a nondisplaced fracture. No other suspicious abnormalities are seen. Midfoot and hindfoot are unremarkable. Phalanges are unremarkable. IMPRESSION: Findings suspicious for nondisplaced fractures at the base of the first and second metatarsals. Dictated by: Dictated on workstation # [id number]
[2018-07-01] MEDS ORDERED: RX-ALBUTEROL INHALER (PROAIR) 8 GM IH PRN (18:15)
[2018-07-01] MEDS ORDERED: PRD20T PO (18:26)
[2018-07-01 18:38] VITALS: BP 126/92
== END 2018-07-01 18:45 | disposition home or self-care (01) ==
LOC: EDUNIT# 13:49 → ER 13:50
DX: S92.315A Nondisplaced fracture of first metatarsal bone, left foot, initial encounter for closed fracture (principal); S92.325A Nondisplaced fracture of second metatarsal bone, left foot, initial encounter for closed fracture; J44.1 Chronic obstructive pulmonary disease with (acute) exacerbation; E78.00 Pure hypercholesterolemia, unspecified; I10 Essential (primary) hypertension; F03.90 Unspecified dementia, unspecified severity, without behavioral disturbance, psychotic disturbance, mood disturbance, and anxiety; K21.9 Gastro-esophageal reflux disease without esophagitis; F41.9 Anxiety disorder, unspecified; F32.9 Major depressive disorder, single episode, unspecified; Z87.19 Personal history of other diseases of the digestive system; Z87.891 Personal history of nicotine dependence; Z86.718 Personal history of other venous thrombosis and embolism; Z88.5 Allergy status to narcotic agent; Z88.8 Allergy status to other drugs, medicaments and biological substances; Z79.01 Long term (current) use of anticoagulants; Z90.49 Acquired absence of other specified parts of digestive tract; Z98.890 Other specified postprocedural states; Z90.710 Acquired absence of both cervix and uterus; X58.XXXA Exposure to other specified factors, initial encounter
CPT/HCPCS: 36415; 71045; 71275; 73630; 80053; 85025; 86141; 94640

== ENCOUNTER 2018-08-09 07:34 | Emergency (ER) | payer MEDICARE, OTHER ==
[~2018-08-09] VITALS: Ht 172.7 cm; Wt 72.6 kg
[~2018-08-09 07:34] MED LIST changes: +PRD20T PO
[2018-08-09] MEDS ORDERED: ACETAMINOPHEN 500 MG TAB (TYLENOL) PO ONE (08:00)
--- NOTE | 2018-08-09 08:04 | NUR ---
SEE LIST FOR CURRENT MEDS
--- NOTE | 2018-08-09 08:26 | Diagnostic Imaging Report ---
PROCEDURE: CT head and CT cervical spine without contrast. TECHNIQUE: Multiple contiguous axial images were obtained through the brain and cervical spine without the use of intravenous contrast. Sagittal and coronal reformations through the cervical spine were then performed. INDICATION: Fall. Confusion. Comparison made with the prior study from 06/23/2018. FINDINGS: There is a new right posterior parietal and occipital subcutaneous hematoma with a possible overlying skin laceration. There is no underlying calvarial fracture evident. The intracranial contents demonstrates stable global volume loss. There is no acute intracranial hemorrhage or extra-axial collection demonstrated. There is no intracranial mass effect or shift. There is no hydrocephalus. There are background microvascular changes in the white matter but no territorial loss of valencia-white differentiation to suggest acute ischemia. The mastoid air cells appear clear. The paranasal sinuses appear clear. Cervical spine demonstrates a stable alignment. There is normal alignment of the craniocervical junction. There is a normal relationship of the lateral masses of C1 and C2. There are no findings of facet joint or disc space widening. Vertebral body heights appear maintained. Endplate changes most advanced at C5-6. There is no acute cervical spine fracture demonstrated. Most significant canal stenosis again at the C5-6 level, appearing mild to moderate. Lung apices demonstrate centrilobular emphysema without pneumothorax. The soft tissues demonstrate no acute process. IMPRESSION: 1. Large right posterior parietal/occipital subcutaneous hematoma with a possible skin laceration. No underlying calvarial fracture. 2. Global volume loss with background microvascular changes. There are no CT findings of intracranial hemorrhage or of an acute intracranial abnormality. 3. Stable degenerative features within the cervical spine without evidence of traumatic malalignment or acute cervical spine fracture. 4. Pulmonary emphysema. Dictated by: Dictated on workstation # [id number]
--- NOTE | 2018-08-09 08:48 | ED Head Injury ---
General Chief Complaint: Trauma-Non Activation Stated Complaint: FALL Nursing Triage Note: PT ARRIVED PER EMS, PT FELL AT [facility], DENIES LOC PT HAS C-COLLAR IN PLACE Source: patient, family, EMS Exam Limitations: clinical condition History of Present Illness Date Seen by Provider: Aug 09, 2018 Time Seen by Provider: 07:30 Initial Comments This 67-year-old white female presents with the paramedics after she fell on the floor striking her head this morning the long term. The patient is complaining of pain over the occiput. The patient is also complaining of nonradiating neck pain without associated paresthesias or weakness in the extremities. She sustained a small abrasion of the right elbow on her fall as well. Past medical history was significant for previous electroshock therapy with the patient's mentation as seen in the emergency department today Location Injury Occurred: FACILITY Allergies and Home Medications Allergies Coded Allergies: morphine (Verified Allergy, Intermediate, 08/01/17) butorphanol (Verified Allergy, Unknown, 08/01/17) Home Medications Acetaminophen 325 Mg Capsule, 650 MG PO Q4H PRN for pain/fever, (Reported) take 2 (325mg) tabs Apixaban 5 Mg Tablet, 5 MG PO BID, (Reported) Apixaban 5 Mg Tablet, 5 MG PO BID Prescribed by: MELISSA ALEXANDER on 06/23/182019 Buspirone HCl 10 Mg Tablet, 10 MG PO BID, (Reported) Lisinopril 10 Mg Tablet, 10 MG PO DAILY, (Reported) Lovastatin 20 Mg Tablet, 20 MG PO HS, (Reported) Nicotine 1 Each Patch.dysq, 14 MG TD DAILY, (Reported) Pantoprazole Sodium 40 Mg Tablet.dr, 40 MG PO DAILY, (Reported) Polyethylene Glycol 3350 119 Gm Powder, 17 GM PO BID PRN for CONSTIPATION-1ST LINE Prescribed by: MELISSA ALEXANDER on 06/23/182019 Prednisone 20 Mg Tab, 40 MG PO DAILY Prescribed by: RAMON BERRY on 07/01/181825 Quetiapine Fumarate 150 Mg Tab.er.24h, 150 MG PO HS, (Reported) Trihexyphenidyl HCl 2 Mg Tablet, 1 MG PO BID, (Reported) take 1/2 of 2mg tab Patient Home Medication List Home Medication List Reviewed: Yes Review of Systems Review of Systems Constitutional: No chills Eyes: Denies Blurred Vision Ears, Nose, Mouth, Throat: denies ear pain, denies epistaxis Respiratory: No cough Cardiovascular: No chest pain Gastrointestinal: No nausea, No vomiting Genitourinary: no symptoms reported : No Musculoskeletal: No back pain; neck pain Skin: other (abrasion right elbow) Psychiatric/Neurological: Depressed, 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.) Endocrine: No Symptoms Reported Hematologic/Lymphatic: No Symptoms Reported Past Vgvuopv-Khkloy-Byllej Hx Past Med/Social Hx: Reviewed Nursing Past Med/Soc Hx Patient Social History Alcohol Use: Denies Use Recreational Drug Use: No Smoking Status: Current Someday Smoker Type Used: Cigarettes Former Smoker, Quit: Jul 16, 2017 2nd Hand Smoke Exposure: Yes Recent Foreign Travel: No Contact w/Someone Who Travel: No Recent Infectious Disease Expo: No Recent Hopitalizations: No Immunizations Up To Date Tetanus Booster (TDap): Unknown Date of Influenza Vaccine: Mar 25, 2017 Seasonal Allergies Seasonal Allergies: No Past Medical History Surgeries: Yes Appendectomy, Section, Hysterectomy Respiratory: No Cardiac: Yes Deep Vein Thrombosis, High Cholesterol, Hypertension Neurological: Yes (ELECTRIC SHOCK TREATMENT ( LAST ONE 14 YRS. AGO)) Dementia Reproductive Disorders: No Sexually Transmitted Disease: No HIV/AIDS: No Genitourinary: No Gastrointestinal: Yes ( BOWEL ISSUES, LOSS APPETITE) Colitis, Gastroesophageal Reflux Musculoskeletal: No Endocrine: No HEENT: Yes Loss of Vision: Bilateral Hearing Impairment: Denies Cancer: No Psychosocial: Yes Anxiety, Depression Integumentary: No Blood Disorders: No Adverse Reaction/Blood Tranf: No (N/A) Physical Exam Vital Signs Vital Signs - First Documented 08/09/18 07:35 Temp 97.5 Pulse 92 Resp 18 B/P (MAP) 146/106 (119) Pulse Ox 93 Capillary Refill : Less Than 3 Seconds Height, Weight, BMI Height: 5'8.00" Weight: 160lbs. 0oz. [id number]; 28.2 BMI Method:Stated General Appearance: WD/WN, mild distress HEENT: normal ENT inspection, other (swelling over the occipital area from the fall) Neck: normal inspection, tender lateral Cardiovascular: regular rate, rhythm Respiratory: normal breath sounds Gastrointestinal: non tender Back: normal inspection Extremities: normal range of motion, non-tender, normal inspection Psychiatric: alert, oriented x 3, depressed affect Crainal Nerves: normal hearing, normal speech, PERRL Motor/Sensory: no motor deficit, no sensory deficit Skin: other (abrasion over the right elbow) Wayne Coma Score Best Eye Response: (4) Open Spontaneously Best Verbal Response: (5) Oriented Best Motor Response: (6) Obeys Commands Cortes Total: 15 Progress/Results/Core Measures Results/Orders My Orders Orders - WILFREDO CHRISTINE MD Ct Head/Cervical Spine Wo (08/09/18 07:38) Acetaminophen Tablet (Tylenol Tablet) (08/09/18 08:00) Medications Given in ED Current Medications Medications Dose Ordered Sig/Akira Route Start Time Stop Time Status Last Admin Dose Admin Acetaminophen 1,000 mg ONCE ONCE PO 08/09/18 08:00 08/09/18 08:01 DC 08/09/18 08:07 1,000 MG Vital Signs/I&O 08/09/18 07:35 Temp 97.5 Pulse 92 Resp 18 B/P (MAP) 146/106 (119) Pulse Ox 93 Blood Pressure Mean: 119 Progress Progress Note : Time: 08:42 Progress Note Patient was given a gram of Tylenol orally for her headache. CT of the head and neck film demonstrated evidence of acute hemorrhage or fracture. Generalized atrophy was noted. The patient's abrasions over her the dorsum of her feet and right elbow are cleaned and dressed. The Tylenol helped patient's headache. I discussed the findings with the patient's daughter who was in the emergency department with the patient. Departure Impression Primary Impression: Closed head injury Qualified Codes: S09.90XA - Unspecified injury of head, initial encounter Additional Impression: Abrasions of multiple sites Disposition: HOME, SELF-CARE Condition: Improved Departure-Patient Inst. Decision time for Depature: 08:49 Referrals: MARIANELA GOMEZ DO (PCP/Family) Primary Care Physician Patient Instructions: Closed Head Injury (DC) Add. Discharge Instructions: Tylenol for pain. Clean abrasions with soap and water twice daily. Follow-up with Dr. GOMEZ Saturday for recheck. Return if any problems or questions. All discharge instructions reviewed with patient and/or family. Voiced understanding. WILFREDO CHRISTINE MD Aug 09, 2018 08:48
[2018-08-09] MEDS ORDERED: TETANUS,DIPTH,PERTUSS P/F (BOOSTRIX) 0.5 ML VIAL IM ONE (09:00)
[2018-08-09 10:00] VITALS: BP 146/106
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
== END 2018-08-09 13:04 | disposition home or self-care (01) ==
LOC: EDUNIT# 07:34 → ER 07:36
DX: S09.90XA Unspecified injury of head, initial encounter (principal); S00.01XA Abrasion of scalp, initial encounter; S10.91XA Abrasion of unspecified part of neck, initial encounter; S50.311A Abrasion of right elbow, initial encounter; E78.00 Pure hypercholesterolemia, unspecified; I10 Essential (primary) hypertension; F03.90 Unspecified dementia, unspecified severity, without behavioral disturbance, psychotic disturbance, mood disturbance, and anxiety; K21.9 Gastro-esophageal reflux disease without esophagitis; F41.9 Anxiety disorder, unspecified; F32.9 Major depressive disorder, single episode, unspecified; R40.2142 Coma scale, eyes open, spontaneous, at arrival to emergency department; R40.2252 Coma scale, best verbal response, oriented, at arrival to emergency department; R40.2362 Coma scale, best motor response, obeys commands, at arrival to emergency department; Z87.19 Personal history of other diseases of the digestive system; Z88.5 Allergy status to narcotic agent; Z88.8 Allergy status to other drugs, medicaments and biological substances; Z79.01 Long term (current) use of anticoagulants; Z79.52 Long term (current) use of systemic steroids; Z87.891 Personal history of nicotine dependence; Z90.49 Acquired absence of other specified parts of digestive tract; Z98.890 Other specified postprocedural states; Z90.710 Acquired absence of both cervix and uterus; Z86.718 Personal history of other venous thrombosis and embolism; W01.198A Fall on same level from slipping, tripping and stumbling with subsequent striking against other object, initial encounter; Y92.129 Unspecified place in nursing home as the place of occurrence of the external cause
CPT/HCPCS: 70450; 72125; 90715

== ENCOUNTER 2018-08-18 03:53 | Emergency (ER) | payer MEDICARE, OTHER ==
[~2018-08-18] VITALS: Ht 172.7 cm; Wt 72.6 kg
--- NOTE | 2018-08-18 06:07 | ED Fall/Injury ---
General Chief Complaint: Trauma-Non Activation Stated Complaint: FALL Source: patient, EMS Exam Limitations: no limitations History of Present Illness Date Seen by Provider: Aug 18, 2018 Time Seen by Provider: 05:48 Initial Comments Patient presents to ER by EMS from [facility] with chief complaint of a fall. It was unwitnessed. Unknown if loss of consciousness. Patient is a poor historian due to dementia. Patient denies any pain anywhere. She is in a c- collar. She is not sure what happened prior to, during or after the fall. Staff reports that she has some twitching motion at baseline and is disoriented at baseline. Staff reports the bruise on her neck is old. Allergies and Home Medications Allergies Coded Allergies: morphine (Verified Allergy, Intermediate, 08/01/17) butorphanol (Verified Allergy, Unknown, 08/01/17) Home Medications Acetaminophen 325 Mg Capsule, 650 MG PO Q4H PRN for pain/fever, (Reported) take 2 (325mg) tabs Apixaban 5 Mg Tablet, 5 MG PO BID, (Reported) Apixaban 5 Mg Tablet, 5 MG PO BID Prescribed by: MELISSA ALEXANDER on 06/23/182019 Buspirone HCl 10 Mg Tablet, 10 MG PO BID, (Reported) Lisinopril 10 Mg Tablet, 10 MG PO DAILY, (Reported) Lovastatin 20 Mg Tablet, 20 MG PO HS, (Reported) Nicotine 1 Each Patch.dysq, 14 MG TD DAILY, (Reported) Pantoprazole Sodium 40 Mg Tablet.dr, 40 MG PO DAILY, (Reported) Polyethylene Glycol 3350 119 Gm Powder, 17 GM PO BID PRN for CONSTIPATION-1ST LINE Prescribed by: MELISSA ALEXANDER on 06/23/182019 Prednisone 20 Mg Tab, 40 MG PO DAILY Prescribed by: RAMON BERRY on 07/01/18 182 Quetiapine Fumarate 150 Mg Tab.er.24h, 150 MG PO HS, (Reported) Trihexyphenidyl HCl 2 Mg Tablet, 1 MG PO BID, (Reported) take 1/2 of 2mg tab Patient Home Medication List Home Medication List Reviewed: Yes Review of Systems Review of Systems Constitutional: No chills, No diaphoresis Eyes: Denies Blindness, Denies Blurred Vision Ears, Nose, Mouth, Throat: denies ear pain, denies ear discharge Respiratory: No cough, No short of breath Cardiovascular: No chest pain, No palpitations Gastrointestinal: No abdominal pain, No nausea Genitourinary: No discharge, No dysuria Musculoskeletal: No back pain, No joint pain, No neck pain Past Rkqqrgr-Hsmoeo-Ozvcwn Hx Patient Social History Type Used: Cigarettes Former Smoker, Quit: Jul 16, 2017 2nd Hand Smoke Exposure: Yes Recent Foreign Travel: No Contact w/Someone Who Travel: No Recent Hopitalizations: No Immunizations Up To Date Tetanus Booster (TDap): Unknown Date of Influenza Vaccine: Mar 25, 2017 Seasonal Allergies Seasonal Allergies: No Past Medical History Surgeries: Yes Appendectomy, Section, Hysterectomy Respiratory: No Cardiac: Yes Deep Vein Thrombosis, High Cholesterol, Hypertension Neurological: Yes (ELECTRIC SHOCK TREATMENT ( LAST ONE 14 YRS. AGO)) Dementia Reproductive Disorders: No Sexually Transmitted Disease: No HIV/AIDS: No Genitourinary: No Gastrointestinal: Yes ( BOWEL ISSUES, LOSS APPETITE) Colitis, Gastroesophageal Reflux Musculoskeletal: No Endocrine: No HEENT: Yes Loss of Vision: Bilateral Hearing Impairment: Denies Cancer: No Psychosocial: Yes Anxiety, Depression Integumentary: No Blood Disorders: No Adverse Reaction/Blood Tranf: No (N/A) Physical Exam Vital Signs Vital Signs - First Documented 08/18/18 03:55 Temp 97.0 Pulse 94 Resp 18 B/P (MAP) 141/85 (103) Capillary Refill : Height, Weight, BMI Height: 5'8.00" Weight: 160lbs. 0oz. 72.795342te; 28.2 BMI Method:Stated General Appearance: WD/WN, no apparent distress HEENT: PERRL/EOMI, normal ENT inspection, TMs normal, pharynx normal, other ( atraumatic head, nontender, negative for Villa sign, hemotympanum, raccoon eyes. Bruise on her neck) Neck: non-tender, full range of motion, supple, normal inspection Cardiovascular: normal peripheral pulses, regular rate, rhythm, no edema Respiratory: lungs clear, normal breath sounds, no respiratory distress, no accessory muscle use Peripheral Pulses: 2+ Radial Pulses (R), 2+ Radial Pulses (L) Gastrointestinal: normal bowel sounds, non tender, soft Extremities: normal capillary refill, other (left hand fourth digit has some edema and the reading was unable to be removed easily. Left great toe has bruising, swelling and is tender to palpation with mild decrease range of motion. Right second and third toes have some bruising and swelling with full range of motion and mild tenderness to palpation.) Neurologic/Psychiatric: alert, normal mood/affect, oriented x 3 Skin: normal color, warm/dry Cortes Coma Score Best Eye Response: (4) Open Spontaneously Best Verbal Response: (4) Confused Conversation Best Motor Response: (6) Obeys Commands Progress/Results/Core Measures Results/Orders Lab Results Laboratory Tests Test 08/18/18 07:12 Range/Units White Blood Count 8.7 4.3-11.0 10^3/uL Red Blood Count 4.18 L 4.35-5.85 10^6/uL Hemoglobin 12.8 11.5-16.0 G/DL Hematocrit 39 35-52 % Mean Corpuscular Volume 94 80-99 FL Mean Corpuscular Hemoglobin 31 25-34 PG Mean Corpuscular Hemoglobin Concent 33 32-36 G/DL Red Cell Distribution Width 14.6 H 10.0-14.5 % Platelet Count 216 130-400 10^3/uL Mean Platelet Volume 9.8 7.4-10.4 FL Neutrophils (%) (Auto) 80 H 42-75 % Lymphocytes (%) (Auto) 12 12-44 % Monocytes (%) (Auto) 8 0-12 % Eosinophils (%) (Auto) 1 0-10 % Basophils (%) (Auto) 0 0-10 % Neutrophils # (Auto) 6.9 1.8-7.8 X 10^3 Lymphocytes # (Auto) 1.1 1.0-4.0 X 10^3 Monocytes # (Auto) 0.7 0.0-1.0 X 10^3 Eosinophils # (Auto) 0.0 0.0-0.3 10^3/uL Basophils # (Auto) 0.0 0.0-0.1 10^3/uL Sodium Level 143 135-145 MMOL/L Potassium Level 4.2 3.6-5.0 MMOL/L Chloride Level 107 98-107 MMOL/L Carbon Dioxide Level 26 21-32 MMOL/L Anion Gap 10 5-14 MMOL/L Blood Urea Nitrogen 11 7-18 MG/DL Creatinine 0.73 0.60-1.30 MG/DL Estimat Glomerular Filtration Rate > 60 BUN/Creatinine Ratio 15 Glucose Level 101 70-105 MG/DL Calcium Level 9.5 8.5-10.1 MG/DL Corrected Calcium 9.6 8.5-10.1 MG/DL Total Bilirubin 0.5 0.1-1.0 MG/DL Aspartate Amino Transf (AST/SGOT) 17 5-34 U/L Alanine Aminotransferase (ALT/SGPT) 9 0-55 U/L Alkaline Phosphatase 80 40-136 U/L Total Protein 6.2 L 6.4-8.2 GM/DL Albumin 3.9 3.2-4.5 GM/DL My Orders Orders - STANLEY HERCULES Chest 1 View, Ap/Pa Only (08/18/18 06:01) Hand, Left, 3 Views (08/18/18 06:01) Cbc With Automated Diff (08/18/18 06:01) Comprehensive Metabolic Panel (08/18/18 06:01) Ua Culture If Indicated (08/18/18 06:01) Vital Signs/I&O 08/18/18 03:55 Temp 97.0 Pulse 94 Resp 18 B/P (MAP) 141/85 (103) Progress Progress Note : Time: 07:00 Progress Note C-collar cleared clinically and radiographically. Cut the ring off using a ring cutter put in a bag and placed the patient's belongings. Diagnostic Imaging Diagonstic Imaging: Xray Plain Films/CT/US/NM/MRI: hand (L) Comments Potential subtle fracture of the first phalanx of the fourth finger of the left hand in the distal diaphysis. Minimal displacement. Closed. [facility], [place] NAME: HILDAJORGE [facility] REC#: [id number] PT STATUS: REG ER : 1950 PHYSICIAN: STANLEY HERCULES MD ADMIT DATE: 08/18/18/ER Draft Date of Exam:08/18/18 HAND, LEFT, 3 VIEWS INDICATION: Fall, left hand injury, pain COMPARISON: None FINDINGS: 3 views of the left hand demonstrate no fracture or dislocation. Articular surfaces are age-appropriate. No foreign body seen. IMPRESSION: No fracture or dislocation. Dictated on workstation # [id number] Dict: 08/18/18 0705 Trans: 08/18/18 0709 ANTHONY [id number] Interpreted by: VANDANA REYNA Electronically signed by: Reviewed: Reviewed by Me Diagonstic Imaging: CT (noncontrast) Plain Films/CT/US/NM/MRI: c-spine, head Comments [facility] [place] NAME: JORGE STEVENS [facility] REC#: [id number] PT STATUS: REG ER : 1950 PHYSICIAN: RAMON BERRY MD ADMIT DATE: 08/18/18/ER Draft Date of Exam:08/18/18 CT HEAD/CERVICAL SPINE WO PROCEDURE: CT head and CT cervical spine without contrast. TECHNIQUE: Multiple contiguous axial images were obtained through the brain and cervical spine without the use of intravenous contrast. Sagittal and coronal reformations through the cervical spine were then performed. INDICATION: Traumatic head injury. Neck pain. COMPARISON: Multiple priors, most recent performed on 08/09/2018. FINDINGS - CT BRAIN: Multiple images are degraded by patient motion which diminishes detail, and interpretation was made in light of this technical confine. BRAIN: No parenchymal hemorrhage, midline shift or mass effect. Montalvo-white matter differentiation is intact. No acute infarct. Mild periventricular and subcortical low-density white matter changes. Moderate prominence of the ventricles and sulci consistent with cortical and cerebellar parenchymal volume loss. EXTRA-AXIAL SPACES: No subdural or epidural collections. ORBITS AND PARANASAL SINUSES: Visualized orbits and globes are intact. Visualized paranasal sinuses and mastoid air cells are clear. CALVARIUM AND SOFT TISSUES: The calvarium is intact. No fractures or suspicious bony lesions. There is a moderate right occipital scalp hematoma, decreased in size since prior exam. FINDINGS - CT CERVICAL SPINE: SPINE: No fracture. No acute osseous abnormalities. There is normal cervical lordosis. No subluxation. There is moderate multilevel degenerative loss of disc height with endplate osteophytes. No locked or perched facet. SOFT TISSUES AND LUNG APICES: Prevertebral soft tissues are unremarkable. Emphysematous changes are demonstrated in the lung apices. IMPRESSION: - CT BRAIN: 1. No acute intracranial pathology. 2. Decrease in size of right occipital scalp hematoma compared to prior exam. No evidence of skull fracture. IMPRESSION: - CT CERVICAL SPINE: Multilevel degenerative change of the cervical spine, without evidence of acute fracture or subluxation. Dictated on workstation # [id number] Dict: 08/18/18 0644 Trans: 08/18/18 0652 KB [id number] Interpreted by: RUTHY NETTLES DO Electronically signed by: Reviewed: Reviewed by Me Diagonstic Imaging: Xray Plain Films/CT/US/NM/MRI: chest Comments Elevated right hemidiaphragm stable from 2018. No other acute cardiopulmonary process noted. [facility] [place] [place] NAME: JORGE STEVENS [facility] REC#: [id number] PT STATUS: REG ER : 1950 PHYSICIAN: STANLEY HERCULES MD ADMIT DATE: 08/18/18/ER Draft Date of Exam:08/18/18 CHEST 1 VIEW, AP/PA ONLY INDICATION: Fall, chest pain COMPARISON: 07/01/2018 FINDINGS: Single view of the chest demonstrates stable scarring in the left base. Otherwise, lungs are clear. The heart is prominent but stable. There is no pneumothorax or effusion. Osseous structures are age-appropriate. IMPRESSION: No acute cardiopulmonary findings. Dictated on workstation # [id number] Dict: 08/18/18 0703 Trans: 08/18/18 0710 ANTHONY [phone] Interpreted by: VANDANA REYNA Electronically signed by: Reviewed: Reviewed by Me Diagonstic Imaging: Xray Plain Films/CT/US/NM/MRI: other (toes) Reviewed: Reviewed by Me Departure Impression Primary Impression: Fall Qualified Codes: W19.XXXA - Unspecified fall, initial encounter Additional Impressions: Dementia Qualified Codes: F03.90 - Unspecified dementia without behavioral disturbance Abrasion Bruise Finger fracture, left Qualified Codes: S62.645A - Nondisplaced fracture of proximal phalanx of left ring finger, initial encounter for closed fracture Disposition: 01 HOME, SELF-CARE Condition: Stable Departure-Patient Inst. Decision time for Depature: 08:13 Referrals: MARIANELA GOMEZ DO (PCP/Family) Primary Care Physician Patient Instructions: Finger Fracture (DC) Add. Discharge Instructions: Apply ice for 20 minutes every 4 hours for the first 3 days for swelling as needed. Dipesh tape the finger as needed for splinting. Use Tylenol and/or ibuprofen as necessary for pain. Follow-up with primary care in 1 week to reexamine the finger. All discharge instructions reviewed with patient and/or family. Voiced understanding. STANLEY HERCULES Aug 18, 2018 06:07
--- NOTE | 2018-08-18 06:50 | NUR ---
RING FINGER TO LEFT HAND SWOLLEN AND RING VERY TIGHT AND UNABLE TO REMOVED, CUT OFF BY DR. HERCULES.
--- NOTE | 2018-08-18 06:52 | Diagnostic Imaging Report ---
PROCEDURE: CT head and CT cervical spine without contrast. TECHNIQUE: Multiple contiguous axial images were obtained through the brain and cervical spine without the use of intravenous contrast. Sagittal and coronal reformations through the cervical spine were then performed. INDICATION: Traumatic head injury. Neck pain. COMPARISON: Multiple priors, most recent performed on 08/09/2018. FINDINGS - CT BRAIN: Multiple images are degraded by patient motion which diminishes detail, and interpretation was made in light of this technical confine. BRAIN: No parenchymal hemorrhage, midline shift or mass effect. Montalvo-white matter differentiation is intact. No acute infarct. Mild periventricular and subcortical low-density white matter changes. Moderate prominence of the ventricles and sulci consistent with cortical and cerebellar parenchymal volume loss. EXTRA-AXIAL SPACES: No subdural or epidural collections. ORBITS AND PARANASAL SINUSES: Visualized orbits and globes are intact. Visualized paranasal sinuses and mastoid air cells are clear. CALVARIUM AND SOFT TISSUES: The calvarium is intact. No fractures or suspicious bony lesions. There is a moderate right occipital scalp hematoma, decreased in size since prior exam. FINDINGS - CT CERVICAL SPINE: SPINE: No fracture. No acute osseous abnormalities. There is normal cervical lordosis. No subluxation. There is moderate multilevel degenerative loss of disc height with endplate osteophytes. No locked or perched facet. SOFT TISSUES AND LUNG APICES: Prevertebral soft tissues are unremarkable. Emphysematous changes are demonstrated in the lung apices. IMPRESSION: - CT BRAIN: Allowing for limitations caused by patient motion, there is no acute intracranial pathology. Decrease in size of right occipital scalp hematoma compared to prior exam. No evidence of skull fracture. IMPRESSION: - CT CERVICAL SPINE: Multilevel degenerative change of the cervical spine, without evidence of acute fracture or subluxation. Dictated by: Dictated on workstation # [id number]
--- NOTE | 2018-08-18 07:09 | Diagnostic Imaging Report ---
INDICATION: Fall, left hand injury, pain COMPARISON: None FINDINGS: 3 views of the left hand demonstrate no fracture or dislocation. Articular surfaces are age-appropriate. No foreign body seen. IMPRESSION: No fracture or dislocation. Dictated by: Dictated on workstation # [id number]
--- NOTE | 2018-08-18 07:11 | Diagnostic Imaging Report ---
INDICATION: Fall, chest pain COMPARISON: 07/01/2018 FINDINGS: Single view of the chest demonstrates stable scarring in the left base. Otherwise, lungs are clear. The heart is prominent but stable. There is no pneumothorax or effusion. Osseous structures are age-appropriate. IMPRESSION: No acute cardiopulmonary findings. Dictated by: Dictated on workstation # [id number]
[2018-08-18 07:16] LABS: BASOPHILS % (AUTO) 0 % (0-10); EOSINOPHILS % (AUTO) 1 % (0-10); HEMATOCRIT 39 % (35-52); HEMOGLOBIN 12.8 G/DL (11.5-16.0); LYMPHOCYTES # (AUTO) 1.1 X 10^3 (1.0-4.0); LYMPHOCYTES % (AUTO) 12 % (12-44); MEAN CORPUSCULAR HEMOGLOBIN 31 PG (25-34); MEAN CORPUSCULAR HGB CONC 33 G/DL (32-36); MEAN CORPUSCULAR VOLUME 94 FL (80-99); MEAN PLATELET VOLUME 9.8 FL (7.4-10.4); MONOCYTES # (AUTO) 0.7 X 10^3 (0.0-1.0); MONOCYTES % (AUTO) 8 % (0-12); NEUTROPHILS # (AUTO) 6.9 X 10^3 (1.8-7.8); NEUTROPHILS % (AUTO) 80 % (42-75); PLATELET COUNT 216 10^3/uL (130-400); RED CELL DISTRIBUTION WIDTH 14.6 % (10.0-14.5); WHITE BLOOD COUNT 8.7 10^3/uL (4.3-11.0)
--- NOTE | 2018-08-18 07:25 | NUR ---
PT 4TH AND 5TH FINGERS TYLER TAPED
[2018-08-18 07:38] LABS: ALANINE AMINOTRANSFERASE 9 U/L (0-55); ALBUMIN 3.9 GM/DL (3.2-4.5); ALKALINE PHOSPHATASE 80 U/L (40-136); BILIRUBIN,TOTAL 0.5 MG/DL (0.1-1.0); BUN/CREATININE RATIO 15; CALCIUM 9.5 MG/DL (8.5-10.1); CARBON DIOXIDE 26 MMOL/L (21-32); CHLORIDE 107 MMOL/L (98-107); CREATININE SERUM 0.73 MG/DL (0.60-1.30); GFR ESTIMATED > 60; GLUCOSE 101 MG/DL (70-105); POTASSIUM 4.2 MMOL/L (3.6-5.0); SODIUM 143 MMOL/L (135-145); TOTAL PROTEIN 6.2 GM/DL (6.4-8.2)
--- NOTE | 2018-08-18 09:33 | Diagnostic Imaging Report ---
INDICATION: Right foot pain, injury. COMPARISON: 07/01/2018 FINDINGS: Three views of the right foot demonstrate new fracture deformity involving the distal proximal phalanx as well as the base of the distal phalanx of the first digit. There is intra-articular involvement. There is a chronic healing well aligned fracture of the distal fourth metatarsal. Articular surfaces are age-appropriate. There is no bony erosion or foreign body. IMPRESSION: 1. Acute fracture deformity involving the first phalanx as described above. 2. Healing well aligned chronic fracture involving the fourth metatarsal. Dictated by: Dictated on workstation # [id number]
[2018-08-18 09:57] VITALS: BP 144/84
== END 2018-08-18 09:54 | disposition home or self-care (01) ==
LOC: ER 03:53
DX: S62.645A Nondisplaced fracture of proximal phalanx of left ring finger, initial encounter for closed fracture (principal); S10.83XA Contusion of other specified part of neck, initial encounter; S20.219A Contusion of unspecified front wall of thorax, initial encounter; I10 Essential (primary) hypertension; E78.00 Pure hypercholesterolemia, unspecified; K21.9 Gastro-esophageal reflux disease without esophagitis; F41.9 Anxiety disorder, unspecified; F32.9 Major depressive disorder, single episode, unspecified; R40.2142 Coma scale, eyes open, spontaneous, at arrival to emergency department; R40.2242 Coma scale, best verbal response, confused conversation, at arrival to emergency department; R40.2362 Coma scale, best motor response, obeys commands, at arrival to emergency department; Z87.19 Personal history of other diseases of the digestive system; Z88.5 Allergy status to narcotic agent; Z88.8 Allergy status to other drugs, medicaments and biological substances; Z87.891 Personal history of nicotine dependence; Z90.49 Acquired absence of other specified parts of digestive tract; Z90.710 Acquired absence of both cervix and uterus; Z98.890 Other specified postprocedural states; Z86.718 Personal history of other venous thrombosis and embolism; Z79.01 Long term (current) use of anticoagulants; Z79.52 Long term (current) use of systemic steroids; W19.XXXA Unspecified fall, initial encounter
CPT/HCPCS: 36415; 70450; 71045; 72125; 73130; 73630; 80053; 85025

== ENCOUNTER → 2018-08-21 | Outpatient (CLI) | payer MEDICARE, OTHER ==
--- NOTE | 2018-08-21 16:58 | Diagnostic Imaging Report ---
PROCEDURE: CT head without contrast. TECHNIQUE: Multiple contiguous axial images were obtained through the brain without the use of intravenous contrast. INDICATION: Fall, scalp hematoma. COMPARISON: 08/09/2018. FINDINGS: There is stable age-related cerebral volume loss and chronic small vessel ischemic changes. No focus of acute ischemia or hemorrhage is seen. There is no extra-axial fluid collection. Scalp hematoma is seen in the right posterior parietal region. There is no underlying skull fracture. The visualized paranasal sinuses and mastoids are clear. IMPRESSION: 1. No acute intracranial abnormality. 2. Scalp hematoma without underlying skull fracture. Dictated by: Dictated on workstation # [id number]
== END ==
LOC: RAD 15:59
PROVIDERS: ATTEND Family Medicine
DX: S00.03XA Contusion of scalp, initial encounter (principal); W19.XXXA Unspecified fall, initial encounter
CPT/HCPCS: 70450

== ENCOUNTER 2018-09-18 12:11 | Inpatient (IN) | payer MEDICARE, OTHER ==
[~2018-09-18] VITALS: Ht 177.8 cm; Wt 83.9 kg
[2018-09-18] MEDS ORDERED: LORazepam INJ 2 MG/ML (ATIVAN) VIAL IVP PRN (12:45)
[2018-09-18] MEDS ORDERED: ONDANSETRON 4 MG/2 ML (SDV) Z0FRAN IV PRN (12:45)
[2018-09-18] MEDS ORDERED: PATIENT MAY USE OWN MEDS, ALL PO SCH (12:45)
--- NOTE | 2018-09-18 13:40 | NUR ---
JORGE HILDA admitted to room 423-1, with an admitting diagnosis of SEZURES AND UTI, on 09/18/18 from [facility] via W/C, accompanied by DAUGHTER.JORGE STEVENS introduced to surroundings, call light, bed controls, phone, TV, temperature control, lights, meal times, smoking policy, visitor policy, side rail policy, bathrooms and showers. Patient Rights given to patient in the handbook.JORGE STEVENS verbalizes understanding that [facility] is not responsible for the loss or damage to any personal effects or valuables that are kept in the patients posession during their hospitalization. The following Patient Care Plans were discussed with the DAUGHTER: Discharge Planning, PAIN CONTROL,IV THERAPY, and TESTS AND PROCEDURES. JORGE STEVENS verbalizes understanding of Interdisciplinary Patient Education. Patient and/or family were informed about the Rapid Response Team and its purpose.
[2018-09-18] MEDS ORDERED: ALPR0.254 PO (15:02)
[2018-09-18] MEDS ORDERED: QUET100T69 PO (15:02)
[2018-09-18] MEDS ORDERED: CALC3.8S NS (15:02)
[2018-09-18] MEDS ORDERED: TRIH5TAB2 PO ×2 (15:02→17:07)
[2018-09-18] MEDS ORDERED: FLUO40CA PO (15:02)
[2018-09-18] MEDS ORDERED: LORA0.5T PO (15:02)
[2018-09-18] MEDS ORDERED: IPRA3AMP31 NEB ×3 (15:02→17:07)
[2018-09-18] MEDS ORDERED: DIVA125T32 PO (15:02)
[2018-09-18] MEDS ORDERED: DIVA-76 PO (15:02)
[2018-09-18] MEDS ORDERED: ARIP10TA17 PO (15:02)
[2018-09-18 16:00] VITALS: BP 126/62
[2018-09-18 16:17] LABS: BILIRUBIN,URINE NEGATIVE (NEGATIVE); CLARITY,URINE VERY CLOUDY; COLOR,URINE YELLOW; GLUCOSE, URINE (UA) NEGATIVE (NEGATIVE); KETONES,URINE NEGATIVE (NEGATIVE); LEUKOCYTE ESTERASE ,URINE 3+ (NEGATIVE); NITRITE,URINE NEGATIVE (NEGATIVE); PH,URINE 5 (5-9); PROTEIN,URINE 3+ (NEGATIVE); UROBILINOGEN,URINE NORMAL (NORMAL)
[2018-09-18 16:18] VITALS: BP 126/62
[2018-09-18 16:26] LABS: BACTERIA,URINE LARGE /HPF; RBC,URINE 25-50 /HPF; WBC,URINE TNTC /HPF
[2018-09-18] MEDS ORDERED: TRIHEXYPHENIDYL 2 MG (ARTANE) TAB PO SCH (17:00)
[2018-09-18] MEDS ORDERED: AMLO5TAB9 PO (17:07)
[2018-09-18] MEDS ORDERED: ACET-2267 PO (17:07)
[2018-09-18] MEDS ORDERED: POLY17PO6 PO (17:07)
[2018-09-18] MEDS ORDERED: PANT40TA2 PO (17:07)
[2018-09-18] MEDS ORDERED: LACT20SO2 PO (17:07)
[2018-09-18] MEDS ORDERED: CFTR1V IM (17:07)
[2018-09-18] MEDS ORDERED: CHOL10007 PO (17:07)
[2018-09-18] MEDS ORDERED: CALC-823 PO (17:07)
[2018-09-18] MEDS ORDERED: DOCU-143 PO (17:07)
[2018-09-18] MEDS ORDERED: SIMV10TA3 PO (17:07)
--- NOTE | 2018-09-18 17:10 | NUR ---
UPDATED MED REC WITH MAR FROM [facility]. NOTE SEVERAL MEDICATIONS CHANGES WERE MADE TODAY. I HAVE UPDATED ALL THE CHANGES ON THE MED REC BUT THEY WERE FOLLOWS: LISINOPRIL 10MG DAILY DISCONTINUED 09-18-18 LAST ROCEPHIN 1GM IM DAILY X 5 DAYS ORDER DATE 09-18-18 START DATE 09-19-18 (NOT GIVEN YET) DEPAKOTE 125MG BID DISCONTINUED 09-18-18 STARTED 500MG BID BUT NOT YET GIVEN KEPPRA 500MG BID DISCONTINUED 09-08-18 ATIVAN 0.5MG TID ORDERED 09-17-18 START DATE 09-18-18 XANAX 0.25MG Q8H PRN DISCONTINUED 09-18-18
[2018-09-18 17:16] LABS: BASOPHILS % (AUTO) 0 % (0-10); EOSINOPHILS # (AUTO) 0.1 10^3/uL (0.0-0.3); EOSINOPHILS % (AUTO) 3 % (0-10); HEMATOCRIT 38 % (35-52); HEMOGLOBIN 12.3 G/DL (11.5-16.0); LYMPHOCYTES # (AUTO) 1.5 X 10^3 (1.0-4.0); LYMPHOCYTES % (AUTO) 31 % (12-44); MEAN CORPUSCULAR HEMOGLOBIN 30 PG (25-34); MEAN CORPUSCULAR HGB CONC 32 G/DL (32-36); MEAN CORPUSCULAR VOLUME 93 FL (80-99); MEAN PLATELET VOLUME 10.3 FL (7.4-10.4); MONOCYTES # (AUTO) 0.5 X 10^3 (0.0-1.0); MONOCYTES % (AUTO) 11 % (0-12); NEUTROPHILS # (AUTO) 2.6 X 10^3 (1.8-7.8); NEUTROPHILS % (AUTO) 56 % (42-75); PLATELET COUNT 199 10^3/uL (130-400); RED CELL DISTRIBUTION WIDTH 14.7 % (10.0-14.5); WHITE BLOOD COUNT 4.8 10^3/uL (4.3-11.0)
[2018-09-18] MEDS ORDERED: CATHETER FLUSH 10 ML SYR IV PRN (17:30)
--- OUTSIDE RECORDS SUMMARY | 2018-09-18 17:31 | XMS REPORT | Continuity of Care Document ---
Author Organization Unknown Address Unknown Allergies Active Description Code Type Severity Reaction [...] K 303.90 SA ALCOHOL DEPENDENCE 05/20/2009 ZULETA , ARTI K 307.47 SI DYSSOMNIA NOS 05/20/2009 MERLYN CURRAN, ARTI K 311 MO DEPRESS NOS 05/20/2009 DANIEL BROUSSARD APRN 300.00 AN ANXIETY UNSPEC 05/20/2009 DANIEL BROUSSARD APRN 303.90 SA ALCOHOL DEPENDENCE 05/20/2009 BOBO MITCHELLKimberlyn DANIEL FARIA 307.47 SI DYSSOMNIA NOS 05/20/2009 BOBO MITCHELLNDANIEL 311 MO DEPRESS NOS 05/20/2009 MORENA MONTENEGRO APRN 300.00 AN ANXIETY UNSPEC 05/20/2009 MORENA MONTENEGRO APRN 303.90 SA ALCOHOL DEPENDENCE 05/20/2009 MORENA MONTENEGRO APRN 307.47 SI DYSSOMNIA NOS 05/20/2009 MORENA MONTENEGRO APRN 311 MO DEPRESS NOS 05/20/2009 BOBO MITCHELLNDANIEL 300.00 AN ANXIETY UNSPEC 05/20/2009 BOBO MITCHELLKimberlyn DANIEL FARIA 303.90 SA ALCOHOL DEPENDENCE 05/20/2009 BOBO PEREYRA DANIEL FARIA 307.47 SI DYSSOMNIA NOS 05/20/2009 DANIEL BROUSSARD APRN 311 MO DEPRESS NOS 05/20/2009 ROSI SHREDDED FILLER CIGAR MAKER MACHINE, DEANA M 300.00 AN ANXIETY UNSPEC 05/20/2009 ROSI SHREDDED FILLER CIGAR MAKER MACHINE, DEANA M 303.90 SA ALCOHOL DEPENDENCE 05/20/2009 ROSI SHREDDED FILLER CIGAR MAKER MACHINE, DEANA M 307.47 SI DYSSOMNIA NOS 05/20/2009 ROSI SHREDDED FILLER CIGAR MAKER MACHINE, DEANA M 311 MO DEPRESS NOS 05/20/2009 ROSI SHREDDED FILLER CIGAR MAKER MACHINE, DEANA M 300.00 AN ANXIETY UNSPEC 05/20/2009 ROSI SHREDDED FILLER CIGAR MAKER MACHINE, DEANA M 303.90 SA ALCOHOL DEPENDENCE 05/20/2009 ROSI SHREDDED FILLER CIGAR MAKER MACHINE, DEANA M 307.47 SI DYSSOMNIA NOS 05/20/2009 ROSI SHREDDED FILLER CIGAR MAKER MACHINE, DEANA M 311 MO DEPRESS NOS 05/24/2009 [...] 298.8 P BRIEF PSYCHOTIC DISORDER 05/24/2009 BROUSSARD RODDY, DANIEL BIENVENIDO 298.8 P BRIEF PSYCHOTIC DISORDER 05/24/2009 ROSI SHREDDED FILLER CIGAR MAKER MACHINE, DEANA M 298.8 P BRIEF PSYCHOTIC DISORDER 05/24/2009 ROSI SHREDDED FILLER CIGAR MAKER MACHINE, DEANA M 298.8 P BRIEF PSYCHOTIC DISORDER [...] 466.0 BRONCHITIS, ACUTE 07/13/2009 TRENT STORM DO V58.69 LONG-TERM (CURRENT) USE OF [...] ZULETA DOA K 309.81 AN PTSD 08/01/2009 EVELYN ZULETA DOA K 309.81 AN PTSD 08/01/2009 ARUN VEGA MD 309.81 AN PTSD 08/01/2009 ZULETA DO ARTI K 309.81 AN PTSD 08/01/2009 ZULETA DO ARTI K 309.81 AN PTSD 08/01/2009 ZULETA DO ARTI K 309.81 AN PTSD 08/01/2009 DANIEL [...] MO BIPOLAR NOS 10/20/2009 TRENT STORM DO F 296.80 MO BIPOLAR NOS 10/20/2009 296.80 MO [...] 296.80 MO BIPOLAR NOS 10/20/2009 BOBO PEREYRA, ADNIEL FARIA 296.80 MO BIPOLAR NOS 10/20/2009 MORENA MONTNEEGRO APRN 296.80 MO BIPOLAR NOS 10/20/2009 BROUSSARD RODDY, DANIEL FARIA 296.80 MO BIPOLAR NOS 10/20/2009 ROSI SHREDDED FILLER CIGAR MAKER MACHINE, DEANA M 296.80 MO BIPOLAR NOS 10/20/2009 ROSI SHREDDED FILLER CIGAR MAKER MACHINE, DEANA M 296.80 MO BIPOLAR NOS 03/07/2010 [...] ARTI K NODX NO DIAGNOSIS 03/07/2010 BROUSSARD RELATIONSHIP MANAGEMENT LEAD, DANIEL FARIA 401.1 HYPERTENSION, BENIGN ESSENTIAL 03/07/2010 BROUSSARD RELATIONSHIP MANAGEMENT LEAD, DANIEL FARIA NODX NO DIAGNOSIS 03/07/2010 MONI MITCHELLN, MORENA T 401.1 HYPERTENSION, BENIGN ESSENTIAL 03/07/2010 MONI RELATIONSHIP MANAGEMENT LEAD, MORENA T NODX NO DIAGNOSIS 03/07/2010 BROUSSARD RELATIONSHIP MANAGEMENT LEAD, DANIEL FARIA 401.1 HYPERTENSION, BENIGN ESSENTIAL 03/07/2010 BROUSSARD RELATIONSHIP MANAGEMENT LEAD, DANIEL FARIA NODX NO DIAGNOSIS 03/07/2010 ROSI SHREDDED FILLER CIGAR MAKER MACHINE, DEANA M 401.1 HYPERTENSION, BENIGN ESSENTIAL 03/07/2010 ROSI SHREDDED FILLER CIGAR MAKER MACHINE, DEANA M NODX NO DIAGNOSIS 03/07/2010 ROSI SHREDDED FILLER CIGAR MAKER MACHINE, DEANA M 401.1 HYPERTENSION, BENIGN ESSENTIAL 03/07/2010 ROSI SHREDDED FILLER CIGAR MAKER MACHINE, DEANA M NODX NO DIAGNOSIS 03/14/2010 MORENA [...] ARTI K 486 PNEUMONIA UNSPECIFIED 03/14/2010 BROUSSARD RELATIONSHIP MANAGEMENT LEAD, DANIEL FARIA 486 PNEUMONIA UNSPECIFIED 03/14/2010 MORENA MONTENEGRO APRN 486 PNEUMONIA UNSPECIFIED 03/14/2010 BOBO RELATIONSHIP MANAGEMENT LEAD, DANIEL FARIA 486 PNEUMONIA UNSPECIFIED 03/14/2010 ROSI SHREDDED FILLER CIGAR MAKER MACHINE, DEANA M 486 PNEUMONIA UNSPECIFIED 03/14/2010 ROSI SHREDDED FILLER CIGAR MAKER MACHINE, DEANA M 486 PNEUMONIA UNSPECIFIED 04/24/2010 MORENA [...] ARTI K 272.0 HYPERCHOLESTEROLEMIA PURE 04/24/2010 BOBO MITCHELLNDANIEL BIENVENIDO 272.0 HYPERCHOLESTEROLEMIA PURE 04/24/2010 MORENA MONTENEGRO APRN T 272.0 HYPERCHOLESTEROLEMIA PURE 04/24/2010 BROUSSARD RELATIONSHIP MANAGEMENT LEAD, DANIEL RADERH 272.0 HYPERCHOLESTEROLEMIA PURE 04/24/2010 ROSI KESSLER, DEANA M 272.0 HYPERCHOLESTEROLEMIA PURE 04/24/2010 ROSI KESSLER, DEANA M 272.0 HYPERCHOLESTEROLEMIA PURE 10/31/2010 MORENA MONTENEGRO APRN 564.00 UNSPECIFIED CONSTIPATION 10/31/2010 EMETERIO DO, TRENT F 564.00 UNSPECIFIED CONSTIPATION 10/31/2010 564.00 Unspecified Constipation 10/31/2010 MORENA MONTENEGRO APRN 564.00 Unspecified Constipation 10/31/2010 RENITADER DO, TRENT F 564.00 Unspecified Constipation 10/31/2010 [...] MORENA MONTENEGRO APRN 564.00 Unspecified Constipation 10/31/2010 BROUSSARDZACARIAS PEREYRA, DANIEL FARIA 564.00 Unspecified Constipation 10/31/2010 DEANA LEWIS 564.00 Unspecified Constipation 10/31/2010 ROSI KESSLER, DEANA [place] 564.00 Unspecified Constipation 05/09/2011 MORENA MONTENEGRO APRN [...] DANIEL BROUSSARD APRN 079.99 VIRAL SYNDROME 05/09/2011 DEANA LEWIS 079.99 VIRAL SYNDROME 05/09/2011 DEANA LEWIS 079.99 VIRAL SYNDROME 05/12/2011 MORENA MONTENEGRO APRN [...] ARTI K 465.9 UPPER RESPIRATORY INFECTION 05/12/2011 DANIEL BROUSSARD APRN 465.9 UPPER RESPIRATORY INFECTION 05/12/2011 MORENA MONTENEGRO APRN 465.9 UPPER RESPIRATORY INFECTION 05/12/2011 DANIEL BROUSSARD APRN 465.9 UPPER RESPIRATORY INFECTION 05/12/2011 ROSI SHREDDED FILLER CIGAR MAKER MACHINE, DEANA M 465.9 UPPER RESPIRATORY INFECTION 05/12/2011 ROSI SHREDDED FILLER CIGAR MAKER MACHINE, DEANA M 465.9 UPPER RESPIRATORY INFECTION 05/30/2011 [...] PEREYRA DANIEL FARIA 787.02 NAUSEA ALONE 05/30/2011 ROSI KESSLER, DEANA M 787.02 NAUSEA ALONE 05/30/2011 ROSI KESSLER, DEANA M 787.02 NAUSEA ALONE 06/06/2011 MORENA MONTENEGRO APRN 216.9 MOLE/NEVUS - SITE UNSPECIFIED 06/06/2011 WERGILLIAN DOMARIA ISABELEN F 216.9 MOLE/NEVUS - SITE UNSPECIFIED 06/06/2011 [...] MORENA MONTENEGRO APRN 787.02 Nausea Alone 06/19/2011 EMETERIO CURRAN, TRENT F 787.02 Nausea Alone 06/19/2011 787.02 Nausea [...] DO, ARTI K 787.02 Nausea Alone 06/19/2011 BOBO PEREYRA DANIEL BIENVENIDO 787.02 Nausea Alone 06/19/2011 MORENA MONTENEGRO APRN 787.02 Nausea Alone 06/19/2011 BOBO PEREYRA DANIEL RADERH 787.02 Nausea Alone 06/19/2011 DEANA LEWIS M 787.02 Nausea Alone 06/19/2011 DEANA LEWIS M 787.02 Nausea Alone 07/06/2011 MORENA MONTENEGRO APRN [...] DO, ARTI K 008.8 GASTROENTERITIS, VIRAL 07/06/2011 MERLYN CURRAN, ARTI K 008.8 GASTROENTERITIS, VIRAL 07/06/2011 DANIEL [...] MORENA MONTENEGRO APRN 706.2 SEBACEOUS CYST 07/30/2011 WERDER DO, TRENT F 706.2 SEBACEOUS CYST 07/30/2011 706.2 SEBACEOUS [...] 706.2 SEBACEOUS CYST 07/30/2011 BOBO PEREYRA, DANIEL FARIA 706.2 SEBACEOUS CYST 07/30/2011 DEANA LEWIS 706.2 [...] REMOVAL OF SUTURES 08/06/2011 ARTI ZULETA DO K V58.32 ENCOUNTER FOR REMOVAL OF SUTURES 08/06/2011 BOBO PEREYRA DANIEL RADERH V58.32 ENCOUNTER FOR REMOVAL OF SUTURES 08/06/2011 [...] APRN 787.01 NAUSEA WITH VOMITING 08/20/2011 ZULETA DO ARTI K 787.01 Nausea [...] MORENA MONTENEGRO APRN 380.4 Impacted Cerumen 08/28/2011 RENITADER TRENT CURRAN F 380.4 Impacted Cerumen 08/28/2011 380.4 Impacted [...] DANIEL BROUSSARD APRN 380.4 Impacted Cerumen 08/28/2011 ROSI SHREDDED FILLER CIGAR MAKER MACHINE, DEANA M 380.4 Impacted Cerumen 08/28/2011 ROSI SHREDDED FILLER CIGAR MAKER MACHINE, DEANA M 380.4 Impacted Cerumen 04/21/2012 MORENA [...] DO, ARTI K 486 Pneumonia Unspecified 04/21/2012 DANIEL BROUSSARD APRN 486 Pneumonia Unspecified 04/21/2012 MORENA MONTENEGRO APRN 486 Pneumonia Unspecified 04/21/2012 BROUSSARD RODDY DANIEL FARIA 486 Pneumonia Unspecified 04/21/2012 DEANA LEWIS M 486 Pneumonia Unspecified 04/21/2012 DEANA LEWIS M 486 Pneumonia Unspecified 05/14/2012 MORENA MONTENEGRO [...] And Above, Im) 05/14/2012 BOBO PEREYRA DANIEL FARIA V04.81 Flu Dx (3 Yrs And Above, Im) 05/14/2012 MORENA MONTENEGRO APRN V04.81 Flu Dx (3 Yrs And Above, Im) 05/14/2012 BOBO PEREYRA DANIEL FARIA V04.81 Flu Dx (3 Yrs And Above, Im) 05/14/2012 DEANA LEWIS M V04.81 Flu Dx (3 Yrs And Above, Im) 05/14/2012 DEANA LEWIS V04.81 Flu Dx (3 Yrs And Above, Im) 08/13/2012 305.1 TOBACCO ABUSE 08/13/2012 466.0 BRONCHITIS, ACUTE 08/13/2012 V65.42 COUNSELING - SMOKING CESSATION 08/13/2012 MORENA MONTENEGRO APRN T 305.1 TOBACCO ABUSE 08/13/2012 MORENA MONTENEGRO APRN T 466.0 Bronchitis, Acute 08/13/2012 MORENA MONTENEGRO APRN T V65.42 COUNSELING - SMOKING CESSATION 08/13/2012 EMETERIO DOMARIA ISABELEN F 305.1 TOBACCO ABUSE 08/13/2012 RENITAGILLIAN DO TRENT F 466.0 Bronchitis, Acute 08/13/2012 RENITADER DO TRENT F V65.42 COUNSELING - SMOKING CESSATION [...] ARTI K 466.0 Bronchitis, Acute 08/13/2012 ZULETA DO ARTI K V65.42 COUNSELING - SMOKING CESSATION 08/13/2012 BOBO MITCHELLKimberlyn DANIEL FARIA 305.1 TOBACCO ABUSE 08/13/2012 BOBO MITCHELLN, DANIEL FARIA 466.0 Bronchitis, Acute 08/13/2012 BOBO MITCHELLKimberlyn DANIEL FARIA V65.42 COUNSELING - SMOKING CESSATION 08/13/2012 MORENA MONTENEGRO APRN 305.1 TOBACCO ABUSE 08/13/2012 MORENA MONTENEGRO APRN T 466.0 Bronchitis, Acute 08/13/2012 MORENA MONTENEGRO APRN V65.42 COUNSELING - SMOKING CESSATION 08/13/2012 BOBO MITCHELLKimberlyn DANIEL FARIA 305.1 TOBACCO ABUSE 08/13/2012 BOBO MITCHELLKimberlyn DANIEL FARIA 466.0 Bronchitis, Acute 08/13/2012 BOBO MITCHELLKimberlyn DANIEL FARIA V65.42 COUNSELING - SMOKING CESSATION 08/13/2012 DEANA LEWIS M 305.1 TOBACCO ABUSE 08/13/2012 DEANA LEWIS M 466.0 Bronchitis, Acute 08/13/2012 ROSI KESSLER, DEANA M V65.42 COUNSELING - SMOKING CESSATION 08/13/2012 ROSI KESSLER, DEANA M 305.1 TOBACCO ABUSE 08/13/2012 ROSI KESSLER, DEANA M 466.0 Bronchitis, Acute 08/13/2012 ROSI KESSLER, DEANA M V65.42 COUNSELING - SMOKING CESSATION 02/25/2013 ARTI ZULETA DO K V03.82 PPV23 (PNEUMOVAX) DX 02/25/2013 ARTI ZULETA DO K V03.82 PPV23 (PNEUMOVAX) DX 02/25/2013 ARUN VEGA MD V03.82 PPV23 (PNEUMOVAX) DX 02/25/2013 ZULETA EVELYN CURRANA K V03.82 PPV23 (PNEUMOVAX) DX 02/25/2013 EVELYN ZULETA DOA K V03.82 PPV23 (PNEUMOVAX) DX 02/25/2013 EVELYN ZULETA DOA K V03.82 PPV23 (PNEUMOVAX) DX 02/25/2013 BOBO PEREYRA DANIEL BIENVENIDO V03.82 PPV23 (PNEUMOVAX) DX 02/25/2013 MORENA MONTENEGRO APRN V03.82 PPV23 (PNEUMOVAX) DX 02/25/2013 BROUSSARD RODDY DANIEL FARIA V03.82 PPV23 (PNEUMOVAX) DX 02/25/2013 DEANA LEWIS M V03.82 PPV23 (PNEUMOVAX) DX 02/25/2013 DEANA LEWIS M V03.82 PPV23 (PNEUMOVAX) DX 06/04/2013 ZULETA DO, ARTI K 462 ACUTE PHARYNGITIS 06/04/2013 ZULETA DO, ARTI K 786.2 COUGH 06/04/2013 ZULETA DO, ARTI K 462 ACUTE PHARYNGITIS 06/04/2013 MERLYN CURRAN ARTI K 786.2 COUGH 06/04/2013 BOBO PEREYRA DANIEL BIENVENIDO 462 ACUTE PHARYNGITIS 06/04/2013 BOBO PEREYRA DANIEL BIENVENIDO 786.2 COUGH 06/04/2013 MORENA MONTENEGRO APRN 462 ACUTE PHARYNGITIS 06/04/2013 MORENA MNOTENEGRO APRN 786.2 COUGH 06/04/2013 BOBO PEREYRA DANIEL BIENVENIDO 462 ACUTE PHARYNGITIS 06/04/2013 BROUSSARD RELATIONSHIP MANAGEMENT LEAD, DANIEL BIENVENIDO 786.2 COUGH 06/04/2013 DEANA LEWIS M 462 ACUTE PHARYNGITIS 06/04/2013 DEANA LEWIS M 786.2 COUGH 06/04/2013 DEANA LEWIS M 462 ACUTE PHARYNGITIS 06/04/2013 DEANA LEWIS M 786.2 COUGH 10/02/2013 MERLYN CURRAN, ARTI K 465.9 UPPER RESPIRATORY INFECTION 10/02/2013 MERLYN CURRAN ARTI K 787.02 NAUSEA ALONE 10/02/2013 BROUSSARD RODDY DANIEL BIENVENIDO 465.9 UPPER RESPIRATORY INFECTION 10/02/2013 BROUSSARD RODDY DANIEL BIENVENIDO 787.02 NAUSEA ALONE 10/02/2013 MORENA MONTENEGRO APRN 465.9 UPPER RESPIRATORY INFECTION 10/02/2013 MORENA MONTENEGRO APRN 787.02 NAUSEA ALONE 10/02/2013 BOBO PEREYRA DANIEL BIENVENIDO 465.9 UPPER RESPIRATORY INFECTION 10/02/2013 BROUSSARDZACARIAS PEREYRA DANIEL BIENVENIDO 787.02 NAUSEA ALONE 10/02/2013 DEANA LEWIS M 465.9 UPPER RESPIRATORY INFECTION 10/02/2013 DEANA LEWIS M 787.02 NAUSEA ALONE 10/02/2013 DEANA LEWIS 465.9 UPPER RESPIRATORY INFECTION 10/02/2013 DEANA LEWIS 787.02 NAUSEA ALONE Procedures Code Description [place] [address] ROUTINE VENIPUNCTURE 08/25/2012 84704 CBC 08/25/2012 49483 LIPID PANEL 08/25/2012 37072 CMP 08/25/2012 9991737 GFR CALC (RESULT ONLY) 08/25/2012 39258 GLUCOSE FINGER STICK 12/09/2012 85210 ROUTINE VENIPUNCTURE 05/13/2013 08783 CMP 05/13/2013 83670 ROUTINE VENIPUNCTURE 10/01/2013 99466 CBC 10/01/2013 97837 CMP 10/01/2013 44732 LIPID PANEL 10/01/2013 [id number] GFR CALC (RESULT ONLY) 10/01/2013 74637 TSH 10/01/2013 90510 OXIMETRY 10/02/2013 Results There is no data. Encounters ACCT No. Visit Date/Time Discharge Status Pt. Type Provider Facility Loc./Unit Complaint [id number] 09/10/2014 09:56:00 09/10/2014 23:59:59 CLS Outpatient DEANA LEWIS [id number] 09/10/2014 09:56:00 09/10/2014 23:59:59 CLS Outpatient DEANA LEWIS [id number] 03/09/2014 10:44:00 03/09/2014 23:59:59 CLS Outpatient DANIEL BROUSSARD APRN [id number] 02/01/2014 11:46:00 02/01/2014 23:59:59 CLS Outpatient MORENA MONTENEGRO APRN [id number] 12/07/2013 13:57:00 12/07/2013 23:59:59 CLS Outpatient BROUSSARDDANIEL RENYA APRN [id number] 10/02/2013 12:18:00 10/02/2013 23:59:59 CLS Outpatient ARTI ZULETA DO [id number] 06/04/2013 10:41:00 06/04/2013 23:59:59 CLS Outpatient ARTI ZULETA DO [id number] 05/13/2013 13:57:00 05/13/2013 23:59:59 CLS Outpatient ARTI ZULETA DO [id number] 04/29/2013 16:02:00 04/29/2013 23:59:59 CLS Outpatient ARUN VEGA MD [id number] 03/02/2013 15:54:00 03/02/2013 23:59:59 CLS Outpatient ARTI ZULETA DO Danial [id number] 02/25/2013 15:30:00 02/25/2013 23:59:59 CLS Outpatient ZULETA DO ARTI Barrow [id number] 08/27/2012 15:21:00 08/27/2012 23:59:59 CLS Outpatient TRENT STORM DO [id number] 08/25/2012 08:40:00 08/25/2012 23:59:59 CLS Outpatient MORENA MONTENEGRO APRN [id number] 08/13/2012 09:20:00 08/13/2012 23:59:59 CLS Outpatient [id number] 07/29/2012 15:28:00 07/29/2012 23:59:59 CLS Outpatient TRENT STORM DO [id number] 05/14/2012 15:43:00 05/14/2012 23:59:59 CLS Outpatient MORENA MONTENEGRO APRN [id number] 03/12/2012 15:26:00 03/12/2012 23:59:59 CLS Outpatient MORENA MONTENEGRO APRN [id number] 12/09/2012 07:43:00 Document Registration [id number] 11/10/2012 14:37:00 Document Registration [id number] 09/16/2018 13:34:26 ACT Outpatient
[2018-09-18 17:37] LABS: ALANINE AMINOTRANSFERASE 10 U/L (0-55); ALBUMIN 3.6 GM/DL (3.2-4.5); ALKALINE PHOSPHATASE 72 U/L (40-136); BILIRUBIN,TOTAL 0.3 MG/DL (0.1-1.0); BUN/CREATININE RATIO 16; CALCIUM 9.3 MG/DL (8.5-10.1); CARBON DIOXIDE 27 MMOL/L (21-32); CHLORIDE 105 MMOL/L (98-107); CREATININE SERUM 0.79 MG/DL (0.60-1.30); GFR ESTIMATED > 60; GLUCOSE 95 MG/DL (70-105); MAGNESIUM 1.9 MG/DL (1.8-2.4); POTASSIUM 4.1 MMOL/L (3.6-5.0); SODIUM 141 MMOL/L (135-145); TOTAL PROTEIN 5.7 GM/DL (6.4-8.2)
[2018-09-18] MEDS: cefTRIAXone FOR IV USE 1,000 MG in WATER (STERILE) FOR INJECTION 10 ML IV SCH (17:41)
--- NOTE | 2018-09-18 18:35 | NUR ---
PT. HAVING JERKY MOVEMENTS. RESTLESS. ATIVAN 1 MG GIVEN IV SLOWLY.
[2018-09-18] MEDS ORDERED: NON-FORMULARY MEDICATION 1 EA EA (Polyethylene Glycol 3350 (Miralax) 17 GM) PO PRN (19:30)
--- NOTE | 2018-09-18 19:39 | History & Physicial ---
History of Present Illness History of Present Illness Reason for visit/HPI This is a 67 year old female with a history of dementia who has recently been diagnosed with seizures. She has been having numerous falls and ongoing seizures despite starting medications. The seizures have became so frequent that she is even unable to get out of bed as they knock her back down. She has also been more combative recently and does have a history of recurrent UTIs. It is decided to admit her for faster loading of depakote as well as ativan prn and seizure precautions. She also needs IV antibiotics for her UTI as the infection is likely affecting her combativeness and may be lowering her seizure threshold. Date of Admission Sep 18, 2018 at 14:44 Date Seen by a Provider: Sep 18, 2018 Time Seen by a Provider: 19:33 I consulted on this patient on 09/18/18 19:33 Attending Physician Abigail Khan DO Admitting Physician Abigail Khan DO Consult Allergies and Home Medications Allergies Coded Allergies: morphine (Verified Allergy, Intermediate, 08/01/17) butorphanol (Verified Allergy, Unknown, 08/01/17) Home Medications Acetaminophen 500 Mg Tablet, 500 MG PO Q4H PRN for PAIN-MILD, (Reported) Amlodipine Besylate 5 Mg Tablet, 5 MG PO DAILY, (Reported) Apixaban 5 Mg Tablet, 5 MG PO BID, (Reported) Aripiprazole 10 Mg Tablet, 10 MG PO DAILY, (Reported) Calcitonin,Kincaid,Synthetic 3.7 Ml [place].pump, 1 SPRAY NS DAILY, (Reported) ALTERNATE NOSTRILS BEGINNING WITH RIGHT NOSTRIL 08-22-18 Calcium Carbonate 500 Mg Tablet, 500 MG PO DAILY, (Reported) Ceftriaxone Sodium 1 Gm Vial, 1 GM IM DAILY, (Reported) ORDER DATE 09-18-18 START DATE 09-19-18 Cholecalciferol (Vitamin D3) 1,000 Unit Capsule, 1,000 UNIT PO DAILY, (Reported) Divalproex Sodium 500 Mg Tablet.dr, 500 MG PO BID, (Reported) Docusate Sodium 100 Mg Capsule, 100 MG PO BID, (Reported) Fluoxetine HCl 40 Mg Capsule, 40 MG PO DAILY, (Reported) Ipratropium/Albuterol Sulfate 3 Ml Ampul.neb, 3 ML NEB 0800,1400,2000, (Reported ) Ipratropium/Albuterol Sulfate 3 Ml Ampul.neb, 3 ML NEB Q4H PRN for SHORTNESS OF BREATH, (Reported) Lactulose 20 Gm/30 Ml Solution, 30 ML PO DAILY PRN for CONSTIPATION-3RD LINE, ( Reported) Lorazepam 0.5 Mg Tablet, 0.25 MG PO 0900,1400,2100, (Reported) TAKES 1/2 (0.5MG) TABLET Pantoprazole Sodium 40 Mg Tablet.dr, 40 MG PO DAILY, (Reported) Polyethylene Glycol 3350 17 Gm Powd.pack, 17 GM PO Q12H PRN for CONSTIPATION- 2ND LINE, (Reported) Quetiapine Fumarate 100 Mg Tablet, 200 MG PO 1800, (Reported) TAKES 2 (100MG) TABLETS Simvastatin 10 Mg Tablet, 10 MG PO HS, (Reported) Trihexyphenidyl HCl 5 Mg Tablet, 5 MG PO HS, (Reported) Trihexyphenidyl HCl 5 Mg Tablet, 2.5 MG PO 0800,1200, (Reported) TAKES 1/2 (5MG) TABLET Patient Home Medication List Home Medication List Reviewed: Yes Past Jesfipy-Hpvpfc-Rwvfii Hx Patient Social History Alcohol Use: Denies Use Recreational Drug Use: No Former Smoker, Quit: Jul 16, 2017 Type Used: Cigarettes 2nd Hand Smoke Exposure: Yes Physical Abuse Screen: No Sexual Abuse: No Recent Foreign Travel: No Contact w/other who traveled: No Recent Hopitalizations: No Recent Infectious Disease Expo: No Immunizations Up To Date Tetanus Booster (TDap): Unknown Date of Pneumonia Vaccine: Mar 10, 2019 Date of Influenza Vaccine: Mar 25, 2017 Seasonal Allergies Seasonal Allergies: No Surgeries Yes Appendectomy, Section, Hysterectomy Respiratory No Cardiovascular Yes Deep Vein Thrombosis, High Cholesterol, Hypertension Neurological Yes (ELECTRIC SHOCK TREATMENT ( LAST ONE 14 YRS. AGO)) Dementia Reproductive System Hx Reproductive Disorders: No Sexually Transmitted Disease: No HIV/AIDS: No Genitourinary No Gastrointestinal Yes ( BOWEL ISSUES, LOSS APPETITE) Colitis, Gastroesophageal Reflux, Chronic Constipation Musculoskeletal Yes (BOTH FEET FX , HAND FX) Fractures Endocrine History of Endocrine Disorders: No HEENT History of HEENT Disorders: Yes Loss of Vision: Bilateral Hearing Impairment: Denies Cancer No Psychosocial History of Psychiatric Problem: Yes (15 YRS AGO ATTEMPTED SUICIDE) Behavioral Health Disorders: Anxiety, Suicide Attempts, Depression Integumentary History of Skin or Integumenta: No Blood Transfusions History of Blood Disorders: No Adverse Reaction to a Blood Tr: No (N/A) Family Medical History Family Hx: FH: alcoholism 19 FATHER 19 MOTHER FH: stroke Review of Systems Constitutional: weakness, weight loss EENTM: No see HPI, No no symptoms reported, No ear discharge, No hearing loss, No ear pain, No blurred vision, No double vision, No eye pain, No tearing, No vision loss, No dental problems, No hoarseness, No mouth pain, No mouth swelling , No epistaxis, No nose congestion, No nose pain, No throat pain, No throat swelling, No other Respiratory: No no symptoms reported, No see HPI, No cough, No dyspnea on exertion, No hemoptysis, No orthopnea, No phlegm, No short of breath, No stridor , No wheezing, No other Cardiovascular: No no symptoms reported, No see HPI, No chest pain, No edema, No Hx of Intervention, No palpitations, No syncope, No vascular heart diseas, No other Gastrointestinal: loss of appetite Genitourinary: frequency, incontinence Musculoskeletal: joint pain, other (recent ankle fractures due to falls) Skin: other (bruising due to falls) Psychiatric/Neurological: Anxiety, Depressed, Emotional Problems, Pre-Existing Deficit, Seizure, Weakness Physical Exam Vital Signs Vital Signs - First Documented 09/18/18 16:00 Temp 97.6 Pulse 82 Resp 18 B/P (MAP) 126/62 (83) Pulse Ox 94 O2 Delivery Room Air Capillary Refill : Height, Weight, BMI Height: 5'6.00" Weight: 184lbs. 0.0oz. [id number]; 29.7 BMI Method:Stated General Appearance: Mild Distress HEENT: Normal ENT Inspection Neck: Supple Respiratory: Lungs Clear Cardiovascular: Regular Rate, Rhythm Gastrointestinal: Normal Bowel Sounds, Non Tender, Soft Rectal: Deferred Extremity: Non Tender, No Calf Tenderness, No Pedal Edema Neurologic/Psychiatric: Alert, Disoriented, Motor Weakness, Sensory Deficit Skin: Warm/Dry Comments Laboratory Tests 09/18/18 15:35: Urine Color YELLOW, Urine Clarity VERY CLOUDYH, Urine pH 5, Urine Specific [place] 1.025H, Urine Protein 3+H, Urine Glucose (UA) NEGATIVE, Urine Ketones NEGATIVE, Urine Nitrite NEGATIVE, Urine Bilirubin NEGATIVE, Urine Urobilinogen NORMAL, Urine Leukocyte Esterase 3+H, Urine RBC (Auto) 4+H, Urine RBC 25-50H, Urine WBC TNTCH, Urine Squamous Epithelial Cells 2-5, Urine Crystals NONE, Urine Bacteria LARGEH, Urine Casts NONE, Urine Mucus NEGATIVE, Urine Culture Indicated YES 09/18/18 17:10: White Blood Count 4.8, Red Blood Count 4.12L, Hemoglobin 12.3, Hematocrit 38, Mean Corpuscular Volume 93, Mean Corpuscular Hemoglobin 30, Mean Corpuscular Hemoglobin Concent 32, Red Cell Distribution Width 14.7H, Platelet Count 199, Mean Platelet Volume 10.3, Neutrophils (%) (Auto) 56, Lymphocytes (%) (Auto) 31 , Monocytes (%) (Auto) 11, Eosinophils (%) (Auto) 3, Basophils (%) (Auto) 0, Neutrophils # (Auto) 2.6, Lymphocytes # (Auto) 1.5, Monocytes # (Auto) 0.5, Eosinophils # (Auto) 0.1, Basophils # (Auto) 0.0, Sodium Level 141, Potassium Level 4.1, Chloride Level 105, Carbon Dioxide Level 27, Anion Gap 9, Blood Urea Nitrogen 13, Creatinine 0.79, Estimat Glomerular Filtration Rate > 60, BUN/ Creatinine Ratio 16, Glucose Level 95, Calcium Level 9.3, Corrected Calcium 9.6 , Magnesium Level 1.9, Total Bilirubin 0.3, Aspartate Amino Transf (AST/SGOT) 12 , Alanine Aminotransferase (ALT/SGPT) 10, Alkaline Phosphatase 72, Total Protein 5.7L, Albumin 3.6, Thyroid Stimulating Hormone (TSH) 0.74 Assessment/Plan Assessment and Plan 1. Uncontrolled Seizures--load with depakote and routine ativan, seizure precautions and IV ativan prn 2. UTI--Rocephin and await culture 3. Dementia with Behavior Disorder--on numerous psych medications 4. Hypertension--currently hypotensive so will hold meds and monitor BP 5. History of DVTs to [facility]--on eliquis Admission Diagnosis Admission Status: Inpatient Order (span 2 midnights) Reason for Inpatient Admission: Will need at least 48hrs IV antibiotics and monitored for improvement in seizure activity Clinical Quality Measures DVT/VTE Risk/Contraindication: Risk Factor Score Per Nursin RFS Level Per Nursing on Admit: 4+=Very High ABIGAIL KHAN DO Sep 18, 2018 19:39
[2018-09-18] MEDS ORDERED: QUEtiapine 100 MG (SEROquel) TAB IMMEDIATE RELEASE PO NR (19:45)
[2018-09-18 20:00] VITALS: BP 125/81
[2018-09-18] MEDS: DIVALPROEX 500 MG DELAYED RELEASE (DEPAKOTE) TAB PO SCH (21:01)
[2018-09-18] MEDS: APIXABAN 5 MG (ELIQUIS) TABLET PO SCH (21:02)
[2018-09-18] MEDS: TRIHEXYPHENIDYL 5 MG PO SCH (21:02)
[2018-09-18] MEDS: LORazepam 0.5 MG (ATIVAN) TABLET PO SCH (21:02)
[2018-09-18] MEDS: CATHETER FLUSH 10 ML SYR IV SCH (21:15)
[2018-09-19 00:18] VITALS: BP_SYST 105; BP_SYST 131; BP_DIAS 58; BP_DIAS 71
[2018-09-19 04:00] VITALS: BP 110/73
[2018-09-19] MEDS: CATHETER FLUSH 10 ML SYR IV SCH ×3 (06:39→22:00)
[2018-09-19 08:00] VITALS: BP 132/62
[2018-09-19] MEDS: LORazepam 0.5 MG (ATIVAN) TABLET PO SCH ×3 (08:38→19:37)
[2018-09-19] MEDS: DIVALPROEX 500 MG DELAYED RELEASE (DEPAKOTE) TAB PO SCH ×2 (08:38→19:36)
[2018-09-19] MEDS: PANTOPRAZOLE 40 MG (PROTONIX) TAB PO SCH (08:38)
[2018-09-19] MEDS: APIXABAN 5 MG (ELIQUIS) TABLET PO SCH ×2 (08:38→19:36)
[2018-09-19] MEDS: FLUoxetine HCL 20 MG (PROzac) CAP PO SCH (08:38)
[2018-09-19] MEDS: TRIHEXYPHENIDYL 5 MG PO SCH ×3 (08:38→19:36)
[2018-09-19] MEDS ORDERED: NON-FORMULARY MEDICATION 1 EA EA (Fluoxetine HCl 40 MG) PO SCH (09:00)
[2018-09-19] MEDS ORDERED: NON-FORMULARY MEDICATION 1 EA EA (Aripiprazole 10 MG) PO SCH (09:00)
--- NOTE | 2018-09-19 09:13 | Diagnostic Imaging Report ---
INDICATION: Worsening confusion. Falls. Seizures. TECHNIQUE: Routine non contrast-enhanced axial images were obtained from the skull base to the vertex. Auto Exposure Controls were utilized during the CT exam to meet ALARA standards for radiation dose reduction COMPARISON: 08/21/2018 FINDINGS: The ventricles and cortical sulci are diffusely prominent, compatible with age-related volume loss. There are confluent areas of abnormal, low attenuation in the periventricular white matter. This is consistent with chronic small vessel ischemic changes. There is no midline shift or mass-effect. No acute intra-axial hemorrhage is seen. There are no abnormal areas of increased or decreased density to suggest acute hemorrhage or edema. No extra-axial masses or collections are present. The bony calvarium is intact. The visualized paranasal sinuses are unremarkable. The mastoid air cells are clear. IMPRESSION: 1. No acute intracranial abnormality. No CT evidence of mass, acute infarct or intracranial hemorrhage. 2. Chronic small vessel ischemic changes within the deep white matter. Dictated by: Dictated on workstation # [id number]
--- NOTE | 2018-09-19 10:31 | Progress Note (SOAP) ---
Subjective Date Seen by a Provider: Sep 19, 2018 Time Seen by a Provider: 10:25 Subjective/Events-last exam Fwup uncontrolled seizures, UTI, falls, debility, worsening dementia, mood disorder. Nursing states combative yesterday but slept last night and groggy this morning but was able to get up to wheelchair with assistance for CT. Nursing reports no clonic tonic activity noted and no observed absence like seizures. Does appear groggy which may be from the routine ativan. Objective Exam Vital Signs Date Time Temp Pulse Resp B/P (MAP) Pulse Ox O2 Delivery O2 Flow Rate FiO2 09/19/18 08:00 Room Air 09/19/18 08:00 97.2 71 20 132/62 (85) 94 Room Air 09/19/18 07:00 66 09/19/18 04:00 97.7 67 16 110/73 (85) 90 Room Air 09/19/18 01:00 63 09/19/18 00:18 98.7 69 16 105/71 (82) 90 Room Air 09/18/18 21:00 94 Room Air 09/18/18 20:00 97.9 76 18 125/81 (96) 94 Room Air 09/18/18 19:00 83 09/18/18 16:23 94 Room Air 09/18/18 16:18 97.0 82 18 126/62 Room Air 09/18/18 16:00 97.6 82 18 126/62 (83) 94 Room Air I & O 09/19/18 06:59 Intake Total 550 ml Output Total 800 ml Balance -250 ml Capillary Refill : General Appearance: No Apparent Distress Neck: Supple Respiratory: Lungs Clear Cardiovascular: Regular Rate, Rhythm Neurologic/Psychiatric: Other (sleeping but does awake and answer questions) Skin: Warm/Dry Results Lab Laboratory Tests 09/18/18 15:35: Urine Color YELLOW, Urine Clarity VERY CLOUDYH, Urine pH 5, Urine Specific Enders 1.025H, Urine Protein 3+H, Urine Glucose (UA) NEGATIVE, Urine Ketones NEGATIVE, Urine Nitrite NEGATIVE, Urine Bilirubin NEGATIVE, Urine Urobilinogen NORMAL, Urine Leukocyte Esterase 3+H, Urine RBC (Auto) 4+H, Urine RBC 25-50H, Urine WBC TNTCH, Urine Squamous Epithelial Cells 2-5, Urine Crystals NONE, Urine Bacteria LARGEH, Urine Casts NONE, Urine Mucus NEGATIVE, Urine Culture Indicated YES 09/18/18 17:10: White Blood Count 4.8, Red Blood Count 4.12L, Hemoglobin 12.3, Hematocrit 38, Mean Corpuscular Volume 93, Mean Corpuscular Hemoglobin 30, Mean Corpuscular Hemoglobin Concent 32, Red Cell Distribution Width 14.7H, Platelet Count 199, Mean Platelet Volume 10.3, Neutrophils (%) (Auto) 56, Lymphocytes (%) (Auto) 31 , Monocytes (%) (Auto) 11, Eosinophils (%) (Auto) 3, Basophils (%) (Auto) 0, Neutrophils # (Auto) 2.6, Lymphocytes # (Auto) 1.5, Monocytes # (Auto) 0.5, Eosinophils # (Auto) 0.1, Basophils # (Auto) 0.0, Sodium Level 141, Potassium Level 4.1, Chloride Level 105, Carbon Dioxide Level 27, Anion Gap 9, Blood Urea Nitrogen 13, Creatinine 0.79, Estimat Glomerular Filtration Rate > 60, BUN/ Creatinine Ratio 16, Glucose Level 95, Calcium Level 9.3, Corrected Calcium 9.6 , Magnesium Level 1.9, Total Bilirubin 0.3, Aspartate Amino Transf (AST/SGOT) 12 , Alanine Aminotransferase (ALT/SGPT) 10, Alkaline Phosphatase 72, Total Protein 5.7L, Albumin 3.6, Thyroid Stimulating Hormone (TSH) 0.74 Assessment/Plan Assessment/Plan Assess & Plan/Chief Complaint 1. Uncontrolled Seizures--will check depakote dose in AM, will continue low dose routine ativan today and if no seizure activity noted will consider decreasing or DC of ativan tomorrow 2. UTI--on rocephin but will await Urine culture as has had recent outpatient UTIs 3. Frequent Falls--think these have been due to her seizures but will start PT 4. Debility--start OT as well 5. Worsening Dementia with Behavior Disorder--will decrease seroquel evening dose since have added depakote and see how she does 6. Hypertension--BP meds on hold and monitoring BP Clinical Quality Measures Admission Status Admission Dx 1. Uncontrolled Seizures--load with depakote and routine ativan, seizure precautions and IV ativan prn 2. UTI--Rocephin and await culture 3. Dementia with Behavior Disorder--on numerous psych medications 4. Hypertension--currently hypotensive so will hold meds and monitor BP 5. 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
[2018-09-19 12:00] VITALS: BP 150/63
--- NOTE | 2018-09-19 12:15 | Physical Therapy Evaluation ---
PT Evaluation-General Medical Diagnosis Admission Date Sep 18, 2018 at 14:44 Medical Diagnosis: UTI; seizures Onset Date: Sep 19, 2018 Therapy Diagnosis Therapy Diagnosis: weakness Height/Weight Height (Feet): 5 Height (Inches): 10.00 Weight (Pounds): 185 Weight (Ounces): 0.0 Precautions Precautions/Isolations: Seizure, Fall Prevention, Standard Precautions Referral Physician: Bill Reason for Referral: Evaluation/Treatment Medical History Pertinent Medical History: COPD, Dementia, HTN Additional Medical History frequent UTI's, seizures, Current History Pt admitted due to increased seizure activity and noted UTI. She has had increased falls due to the seizures. Social History Home: Assisted Living Prior/Core FIM Prior Level of Function Therapy Code Descriptions/Definitions Functional [place] Measure: 0=Not Assessed/NA 4=Minimal Assistance 1=Total Assistance 5=Supervision or Setup 2=Maximal Assistance 6=Modified [place] 3=Moderate Assistance 7=Complete [place] Therapy Quality Codes: 6 Independent with activity with or without an assistive device 5 Patient requires set up or clean up by helper. Patient completes activity by themselves 4 Supervision or touching assist (CGA). [place] provide cues , steadying assist 3 The helper provides less than half the effort to complete the activity 2 The helper provides more than half the effort to complete the activity 1 Dependent. The helper does all the effort to complete an activity 7 Patient refused to complete or attempt activity 9 The patient did not perform the activity before the current illness or injury 88 Not attempted due to Medical conditions or safety concerns Functional Abilities and Goals: Independent: Patient completed the activities by him/herself, with or without an assistive device, with no assistance from a helper. Needed Some Help: Patient needed partial assistance from another person to complete activities. Dependent: A helper completed the activities for the patient. Unknown: Not Applicable: Pt is a poor historian but pt is well known to the nurse tech caring for her today, he reports she is typically able to mobilize around [place] and can typically feed herself. She likes to smoke and watch game shows. PT Evaluation-Current Subjective Pt with limited conversation. Does indicate that she would be agreeable to eat. Objective Patient Orientation: Unable to Assess, Mumbles Problem Solving: Poor ROM/Strength ROM Lower Extremities WFL Strength Lower Extremities unable to assess Integumentary/Posture Integumentary intact Posture sits in slumped posture, able to straighten with cues. rounded shoulders and forward head. Neuromuscular (Tone, Coordination, Reflexes) unable to assess Transfers Therapy Code Descriptions/Definitions Functional [place] Measure: 0=Not Assessed/NA 4=Minimal Assistance 1=Total Assistance 5=Supervision or Setup 2=Maximal Assistance 6=Modified [place] 3=Moderate Assistance 7=Complete [place] Transfers (B, C, W/C) (FIM): 2 Scootin Supine to/from Sit: 3 Sit to/from Stand: 2 Pt groggy with difficulty with alertness to effectively complete task. Once sitting up she is able to sit EOB and eat lunch. Fed pt lunch while sitting EOB to promote upright posture, postural control and work on increasing upright mobility/tolerance. Pt tends to slump as she tires but able to correct with cues. Pt sat EOB x 25 minutes to eat lunch. Mostly non verbal but responded to eating and drinking. Sit to stand x 2 with max assist and unable to come to a full stand but was able to bear weight through her legs. Pt in bed post treatment with bedrails up x 4, bed alarm activitaed and needs met. Treatment PT eval and static/dynamic trunk stabilization Assessment/Needs Pt groggy today, possibly due to medications; has trouble initiating movement to get out of bed but then able to sit EOB to eat. Pt will benefit fromo skilled PT intervention to address functional mobiloty and strength to return to prior ambulatory status. Rehab Potential: Fair PT Custodial Goals Custodial Goals PT Glove Machine Operator Goals Time Frame: Sep 26, 2018 Transfers (B,C,W/C) (FIM): 6 Gait (FIM): 6 PT Plan Problem List Problem List: Activity Tolerance, Functional Strength, Safety, Balance, Gait, Transfer, Bed Mobility Treatment/Plan Treatment Plan: Continue Plan of Care Treatment Plan: Bed Mobility, Education, Functional Activity Flynn, Functional Strength, Gait, Safety, Therapeutic Exercise, Transfers Treatment Duration: Sep 26, 2018 Frequency: 6 times per week Estimated Hrs Per Day: .25 hour per day Patient and/or Family Agrees t: Yes Safety Risks/Education Patient Education: Safety Issues Teaching Recipient: Patient Teaching Methods: Discussion Response to Teaching: Reinforcement Needed Time/GCodes Time In: 1130 Time Out: 1210 Total Billed Treatment Time: 40 Total Billed Treatment visit EVM 15 FA 25 DAWN SMITH PT Sep 19, 2018 12:15
--- NOTE | 2018-09-19 14:03 | Occupational Therapy Eval ---
OT Evaluation-General/PLF Medical Diagnosis Admission Date Sep 18, 2018 at 14:44 Medical Diagnosis: UTI; seizures Onset Date: Sep 19, 2018 Therapy Diagnosis Therapy Diagnosis: impaired ADLS/ mobility, weakness Height/Weight Height (Feet): 5 Height (Inches): 10.00 Weight (Pounds): 185 Weight (Ounces): 0.0 Precautions Precautions/Isolations: Seizure, Fall Prevention, Standard Precautions Safety Interventions: Bed Exit Alarm Comments seizure cushions Referral Physician: Bill Referral Reason: Activity Tolerance, Self Care, Evaluation/Treatment, Strengthening/ROM Medical History Pertinent Medical History: COPD, Dementia, HTN Current History per h& P: "This is a 67 year old female with a history of dementia who has recently been diagnosed with seizures. She has been having numerous falls and ongoing seizures despite starting medications. The seizures have became so frequent that she is even unable to get out of bed as they knock her back down. She has also been more combative recently and does have a history of recurrent UTIs. It is decided to admit her for faster loading of depakote as well as ativan prn and seizure precautions. She also needs IV antibiotics for her UTI as the infection is likely affecting her combativeness and may be lowering her seizure threshold" Reviewed History: Yes Social History Home: Assisted Living Entry Into Home: Level Entry ADL-Prior Level of Function Therapy Code Descriptions/Definitions Functional [place] Measure: 0=Not Assessed/NA 4=Minimal Assistance 1=Total Assistance 5=Supervision or Setup 2=Maximal Assistance 6=Modified [place] 3=Moderate Assistance 7=Complete [place] Therapy Quality Codes: 6 Independent with activity with or without an assistive device 5 Patient requires set up or clean up by helper. Patient completes activity by themselves 4 Supervision or touching assist (CGA). [place] provide cues , steadying assist 3 The helper provides less than half the effort to complete the activity 2 The helper provides more than half the effort to complete the activity 1 Dependent. The helper does all the effort to complete an activity 7 Patient refused to complete or attempt activity 9 The patient did not perform the activity before the current illness or injury 88 Not attempted due to Medical conditions or safety concerns Functional Abilities and Goals: Independent: Patient completed the activities by him/herself, with or without an assistive device, with no assistance from a helper. Needed Some Help: Patient needed partial assistance from another person to complete activities. Dependent: A helper completed the activities for the patient. Unknown: Not Applicable: Self Care: Needed Some Help Functional Cognition: Needed Some Help per PT/ NSG aide, pt was able to complete ADLS with some assist at [address] Self: No OT Current Status Subjective pt laying in bed upon OT arrival. pt "mumbles" responses when asked questions. pt unable to state orientation questions. pt poor historian. Mental Status/Objective Expression: 2 Social Interaction: 2 Current Upper Extremity ROM pt unable to follow commands to activity participate in ROM. PROM WFL Upper Extremity Coordination decrease figure to nose coordination Upper Extremity Sensation NT secondary to inability to follow commands/ decrease cognition Upper Extremity Strength pt unable to follow commands to activity participate in MMT ADL-Treatment Therapy Code Descriptions/Definitions Functional [place] Measure: 0=Not Assessed/NA 4=Minimal Assistance 1=Total Assistance 5=Supervision or Setup 2=Maximal Assistance 6=Modified [place] 3=Moderate Assistance 7=Complete [place] Therapy Quality Codes: 6 Independent with activity with or without an assistive device 5 Patient requires set up or clean up by helper. Patient completes activity by themselves 4 Supervision or touching assist (CGA). [place] provide cues , steadying assist 3 The helper provides less than half the effort to complete the activity 2 The helper provides more than half the effort to complete the activity 1 Dependent. The helper does all the effort to complete an activity 7 Patient refused to complete or attempt activity 9 The patient did not perform the activity before the current illness or injury 88 Not attempted due to Medical conditions or safety concerns Eating (FIM): 1 (no active engement. dependent to drink water) Grooming (FIM): 1 (hand over ahnd assist with no active participation Billed as treatment. pt required washcloth to be place in hand. noted decrease graspp in right hand. pt required additional timing to follow instruction. pt would activity engage for approx 2-3 seconds then stop. noted MAX A to maintain static sitting balance EOB. ) Bathing (FIM): 1 (based on clinical judegement/ facilitition of movement) Upper Body Dressing (FIM): 1 (based on clinical judegement/ facilitition of movement) Lower Body Dressing (FIM): 1 (decrease truck control when sitting . FIM score based on clinical judegement/ facilitition of movement) Toileting (FIM): 1 (based on clinical judegement/ facilitition of movement) Transfers (B, C, W/C) (FIM): 0 (functional trasnfers not perform secodanry to safety. MAX A for static sitting balance) Education OT Patient Education: Energy conservation, Modified ADL techniques, Progress toward Goal/Update tx plan, Purpose of tx/functional activities, Safety issues Teaching Methods: Demonstration, Discussion Response to Teaching: Unable to Comprehend OT Short Term Goals Short Term Goals Eating(FIM): 3 Grooming(FIM): 3 Bathing(FIM): 3 Toileting(FIM): 3 Transfers (B,C,W/C) (FIM): 3 1=Demonstrate adherence to instructed precautions during ADL tasks. 2=Patient will verbalize/demonstrate understanding of assistive devices/ modifications for ADL. 3=Patient will improve strength/tolerance for activity to enable patient to perform ADL's. OT Mcfp Goals Drafting Engineer Goals Eating (FIM): 4 Grooming(FIM): 5 Toileting(FIM): 5 Transfers (B,C,W/C) (FIM): 5 1=Demonstrate adherence to instructed precautions during ADL tasks. 2=Patient will verbalize/demonstrate understanding of assistive devices/ modifications for ADL. 3=Patient will improve strength/tolerance for activity to enable patient to perform ADL's. OT Education/Plan Problem List/Assessment Assessment: Decreased Activ Tolerance, Decreased Safety Aware, Decreased UE Strength, Dependent Transfers, Impaired Bed Mobility, Impaired Cognition, Impaired Coordination, Impaired Funct Balance, Impaired I ADL's, Impaired Self- Care Skills, Restricted Funct UE ROM 67 year old female presents to OT services with dx of "UTI; seizures" chart review completed. NSG stated pt may participate in OT evaluation session. pt laying supine in bed upon OT arrival in no apparent distress. pt nodded when ask if she would like to participate in OT evaluation session. pt poor historian and mumbles answers. pt spontaneously engaged in session. pt required MAX A - total assist for bed mobility and total assist for all ADLS. noted pt has slumped posture and required MAX A to maintain static seated balance. pt presents with functional limitations affecting areas of ADLS/ functinal transfers with deficits in: decrease cognition, decrease ability to follow one step commands, decrease activity tolerance, decrease UE ROM/ strength, decrease static sitting balance, impaired coordination, decrease bed mobility, and decrease safety with functional tasks in sitting and standing. pt would benefit from OT services to increase independence for ADLS/ functional transfers and to address above mention deficits. pt will require 24/7 supervision when medically stable. recommend w/c to SNF with rehab. Discharge Recommendations Plan/Recommendations: Continue POC Therapy D/C Recommendations: 24 hr Supervision, Halfway (TCU/NH) Barriers to Progress dementia, decrease cognition Treatment Plan/Plan of Care Treatment,Training & Education: Yes Patient would benefit from OT for education, treatment and training to promote independence in ADL's, mobility, safety and/or upper extremity function for ADL' s. Plan of Care: ADL Retraining, Cognitive Retraining, Functional Mobility, UE Funct Exercise/Act, UE Neuromus Re-Ed/Coord Treatment Duration: Sep 26, 2018 Frequency: 5 times per week Estimated Hrs Per Day: .25 hour per day Agreement: Yes Rehab Potential: Guarded Time/GCodes Start Time: 13:35 Stop Time: 14:00 Billed Treatment Time EVM 15 minutes ADL 10 minutes, 1 unit DIANA KOO OT Sep 19, 2018 14:03
[2018-09-19 16:00] VITALS: BP 131/81
[2018-09-19] MEDS: QUEtiapine 100 MG (SEROquel) TAB IMMEDIATE RELEASE PO SCH (17:40)
[2018-09-19] MEDS: cefTRIAXone FOR IV USE 1,000 MG in WATER (STERILE) FOR INJECTION 10 ML IV SCH (17:40)
[2018-09-19] MEDS ORDERED: QUEtiapine 200 MG (SEROquel) TAB IMMEDIATE RELEASE PO SCH (18:00)
[2018-09-19] MEDS ORDERED: QUETIAPINE FUMARATE 200 MG PO SCH (18:00)
[2018-09-19 19:25] VITALS: BP 127/76
[2018-09-20] VITALS (7 sets, daily range): BP systolic 95–146; BP diastolic 62–83
[2018-09-20] MEDS: CATHETER FLUSH 10 ML SYR IV SCH ×3 (06:20→20:58)
[2018-09-20] MEDS: FLUoxetine HCL 20 MG (PROzac) CAP PO SCH (08:04)
[2018-09-20] MEDS: APIXABAN 5 MG (ELIQUIS) TABLET PO SCH ×2 (08:04→20:56)
[2018-09-20] MEDS: PANTOPRAZOLE 40 MG (PROTONIX) TAB PO SCH (08:04)
[2018-09-20] MEDS: DIVALPROEX 500 MG DELAYED RELEASE (DEPAKOTE) TAB PO SCH ×2 (08:04→20:56)
[2018-09-20] MEDS: TRIHEXYPHENIDYL 5 MG PO SCH ×3 (08:04→20:56)
[2018-09-20] MEDS: LORazepam 0.5 MG (ATIVAN) TABLET PO SCH ×3 (08:06→20:57)
--- NOTE | 2018-09-20 11:31 | Physical Therapy Daily Note ---
PT Daily Note-Current Subjective Patient in recliner pre tx, is confused but states she doesn't have any pain. Nurse states she has been in a recliner for quite a while, will be getting her back to bed. Appearance Patient in bed post tx with nurse call, tray, bed alarm on, telesitter in room. Mental Status Patient Orientation: Confused Transfers Therapy Code Descriptions/Definitions Functional [place] Measure: 0=Not Assessed/NA 4=Minimal Assistance 1=Total Assistance 5=Supervision or Setup 2=Maximal Assistance 6=Modified [place] 3=Moderate Assistance 7=Complete [place] Therapy Quality Codes: 6 Independent with activity with or without an assistive device 5 Patient requires set up or clean up by helper. Patient completes activity by themselves 4 Supervision or touching assist (CGA). [place] provide cues , steadying assist 3 The helper provides less than half the effort to complete the activity 2 The helper provides more than half the effort to complete the activity 1 Dependent. The helper does all the effort to complete an activity 7 Patient refused to complete or attempt activity 9 The patient did not perform the activity before the current illness or injury 88 Not attempted due to Medical conditions or safety concerns Transfers (B, C, W/C) (FIM): 2 Scootin Rollin Supine to/from Sit: 2 Sit to/from Stand: 2 Bed to/from Chair: 2 cues for hand placement Gait Training Gait (FIM): 1 Distance: 5' Gait Level of Assist: 2 Gait Persons Needed: 1 After standing, therapist in front of patient and patient holding onto therapist forearms, patient takes a few steps toward bed, steps are very short and patient has knee buckling. Treatments bed mobility and transfers, ambulation Assessment Current Status: Poor Progress max assist for all mobility PT Short Term Goals Short Term Goals Transfers (B,C,W/C) (FIM): 3 PT Slp Teacher Goals Slp Teacher Goals PT Slp Teacher Goals Time Frame: Sep 26, 2018 Transfers (B,C,W/C) (FIM): 6 Gait (FIM): 6 PT Plan Problem List Problem List: Activity Tolerance, Functional Strength, Safety, Balance, Gait, Transfer, Bed Mobility Treatment/Plan Treatment Plan: Continue Plan of Care Treatment Plan: Bed Mobility, Education, Functional Activity [place], Functional Strength, Gait, Safety, Therapeutic Exercise, Transfers Treatment Duration: Sep 26, 2018 Frequency: 6 times per week Estimated Hrs Per Day: .25 hour per day Patient and/or Family Agrees t: Yes Safety Risks/Education Patient Education: Gait Training, Transfer Techniques, Correct Positioning, Safety Issues Teaching Recipient: Patient Teaching Methods: Demonstration, Discussion Response to Teaching: Reinforcement Needed Time/GCodes Time In: 1118 Time Out: 1128 Total Billed Treatment Time: 10 Total Billed Treatment 1 visit FA JACKIE AIKEN PT Sep 20, 2018 11:31
--- NOTE | 2018-09-20 12:06 | Progress Note-Hospitalist ---
Subjective HPI/CC On Admission Date Seen by Provider: Sep 20, 2018 Time Seen by Provider: 11:00 Subjective/Events-last exam Patient stable but not much interaction Assistance to eat as required Reviewed urine culture and labs Vitals remained stable Poor prognosis long-term given such young age to have such severe dementia Review of Systems General: Fatigue Neurological: Confusion Objective Exam Vital Signs Vital Signs Date Time Temp Pulse Resp B/P (MAP) Pulse Ox O2 Delivery O2 Flow Rate FiO2 09/20/18 15:45 98.0 75 16 126/79 (95) 94 Room Air Capillary Refill : General Appearance: No Apparent Distress, WD/WN, Chronically ill HEENT: Normal ENT Inspection Neck: Supple Respiratory: Lungs Clear Cardiovascular: Regular Rate, Rhythm Gastrointestinal: Normal Bowel Sounds, Non Tender, Soft Extremity: Non Tender, No Calf Tenderness, No Pedal Edema Neurologic/Psychiatric: Disoriented, Other (sleeping but does awake and answer questions) Skin: Warm/Dry Results/Procedures Lab Patient resulted labs reviewed. Assessment/Plan Assessment and Plan Assess & Plan/Chief Complaint Assessment per PCP: 1. Uncontrolled Seizures--load with depakote and routine ativan, seizure precautions and IV ativan prn 2. UTI--Rocephin and await culture 3. Dementia with Behavior Disorder--on numerous psych medications 4. Hypertension--currently hypotensive so will hold meds and monitor BP 5. 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
[2018-09-20] MEDS: QUEtiapine 100 MG (SEROquel) TAB IMMEDIATE RELEASE PO SCH (17:14)
[2018-09-20] MEDS: cefTRIAXone FOR IV USE 1,000 MG in WATER (STERILE) FOR INJECTION 10 ML IV SCH (17:14)
[2018-09-21 04:00] VITALS: BP 131/67
[2018-09-21] MEDS: CATHETER FLUSH 10 ML SYR IV SCH ×3 (05:35→20:40)
[2018-09-21 08:00] VITALS: BP 138/69
[2018-09-21] MEDS: DIVALPROEX 500 MG DELAYED RELEASE (DEPAKOTE) TAB PO SCH ×2 (09:18→19:39)
[2018-09-21] MEDS: TRIHEXYPHENIDYL 5 MG PO SCH ×3 (09:18→19:40)
[2018-09-21] MEDS: APIXABAN 5 MG (ELIQUIS) TABLET PO SCH ×2 (09:59→19:40)
[2018-09-21] MEDS: FLUoxetine HCL 20 MG (PROzac) CAP PO SCH (09:59)
[2018-09-21] MEDS: PANTOPRAZOLE 40 MG (PROTONIX) TAB PO SCH (09:59)
[2018-09-21] MEDS: LORazepam 0.5 MG (ATIVAN) TABLET PO SCH ×3 (10:08→19:40)
--- NOTE | 2018-09-21 11:34 | Progress Note-Hospitalist ---
Subjective HPI/CC On Admission Date Seen by Provider: Sep 21, 2018 Time Seen by Provider: 12:00 Subjective/Events-last exam Patient sedated We'll check levels of Depakote tomorrow Very difficult situation considering recurrent and severe seizures and needs medicated to suppress Review of Systems General: Fatigue Objective Exam Vital Signs Vital Signs Date Time Temp Pulse Resp B/P (MAP) Pulse Ox O2 Delivery O2 Flow Rate FiO2 09/21/18 13:00 70 09/21/18 12:00 97.4 18 139/67 (91) 93 Room Air Capillary Refill : General Appearance: No Apparent Distress, WD/WN, Chronically ill HEENT: Normal ENT Inspection Neck: Supple Respiratory: Lungs Clear Cardiovascular: Regular Rate, Rhythm Gastrointestinal: Normal Bowel Sounds, Non Tender, Soft Extremity: Non Tender, No Calf Tenderness, No Pedal Edema Neurologic/Psychiatric: Disoriented, Other (sleeping but does awake and answer questions) Skin: Warm/Dry Results/Procedures Lab Patient resulted labs reviewed. Assessment/Plan Assessment and Plan Assess & Plan/Chief Complaint Assessment per PCP: 1. Uncontrolled Seizures--load with depakote and routine ativan, seizure precautions and IV ativan prn 2. UTI--Rocephin and await culture 3. Dementia with Behavior Disorder--on numerous psych medications 4. Hypertension--currently hypotensive so will hold meds and monitor BP 5. 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
[2018-09-21 12:00] VITALS: BP 139/67
[2018-09-21] MEDS: POLYETHYLENE GLYCOL 17 GM (MIRALAX) PACK PO PRN (12:32)
[2018-09-21 15:28] VITALS: BP 123/64
[2018-09-21] MEDS: cefTRIAXone FOR IV USE 1,000 MG in WATER (STERILE) FOR INJECTION 10 ML IV SCH (17:05)
[2018-09-21] MEDS: QUEtiapine 100 MG (SEROquel) TAB IMMEDIATE RELEASE PO SCH (17:09)
[2018-09-21 20:00] VITALS: BP 143/73
[2018-09-22 00:12] VITALS: BP 93/62
[2018-09-22 04:00] VITALS: BP 95/62
[2018-09-22 05:22] LABS: BASOPHILS % (AUTO) 0 % (0-10); EOSINOPHILS # (AUTO) 0.1 10^3/uL (0.0-0.3); EOSINOPHILS % (AUTO) 2 % (0-10); HEMATOCRIT 36 % (35-52); HEMOGLOBIN 11.9 G/DL (11.5-16.0); LYMPHOCYTES # (AUTO) 1.9 X 10^3 (1.0-4.0); LYMPHOCYTES % (AUTO) 44 % (12-44); MEAN CORPUSCULAR HEMOGLOBIN 30 PG (25-34); MEAN CORPUSCULAR HGB CONC 33 G/DL (32-36); MEAN CORPUSCULAR VOLUME 91 FL (80-99); MEAN PLATELET VOLUME 9.9 FL (7.4-10.4); MONOCYTES # (AUTO) 0.6 X 10^3 (0.0-1.0); MONOCYTES % (AUTO) 13 % (0-12); NEUTROPHILS # (AUTO) 1.7 X 10^3 (1.8-7.8); NEUTROPHILS % (AUTO) 40 % (42-75); PLATELET COUNT 211 10^3/uL (130-400); RED CELL DISTRIBUTION WIDTH 14.6 % (10.0-14.5); WHITE BLOOD COUNT 4.3 10^3/uL (4.3-11.0)
[2018-09-22 05:42] LABS: ALANINE AMINOTRANSFERASE 10 U/L (0-55); ALBUMIN 3.3 GM/DL (3.2-4.5); ALKALINE PHOSPHATASE 54 U/L (40-136); BILIRUBIN,TOTAL 0.2 MG/DL (0.1-1.0); BUN/CREATININE RATIO 24; CARBON DIOXIDE 26 MMOL/L (21-32); CHLORIDE 103 MMOL/L (98-107); CREATININE SERUM 0.78 MG/DL (0.60-1.30); GFR ESTIMATED > 60; GLUCOSE 98 MG/DL (70-105); POTASSIUM 4.3 MMOL/L (3.6-5.0); SODIUM 138 MMOL/L (135-145); TOTAL PROTEIN 5.2 GM/DL (6.4-8.2)
[2018-09-22 05:48] LABS: VALPROIC ACID 89.1 UG/ML (50.0-100.0)
[2018-09-22] MEDS: CATHETER FLUSH 10 ML SYR IV SCH ×3 (06:05→22:06)
[2018-09-22 08:00] VITALS: BP 127/63
[2018-09-22] MEDS: LORazepam 0.5 MG (ATIVAN) TABLET PO SCH (08:17)
[2018-09-22] MEDS: FLUoxetine HCL 20 MG (PROzac) CAP PO SCH (08:18)
[2018-09-22] MEDS: APIXABAN 5 MG (ELIQUIS) TABLET PO SCH ×2 (08:18→22:04)
[2018-09-22] MEDS: TRIHEXYPHENIDYL 5 MG PO SCH ×3 (08:18→22:04)
[2018-09-22] MEDS: POLYETHYLENE GLYCOL 17 GM (MIRALAX) PACK PO PRN (08:18)
[2018-09-22] MEDS: PANTOPRAZOLE 40 MG (PROTONIX) TAB PO SCH (08:18)
[2018-09-22] MEDS: DIVALPROEX 500 MG DELAYED RELEASE (DEPAKOTE) TAB PO SCH (08:20)
--- NOTE | 2018-09-22 11:04 | Occupational Ther Daily Note ---
OT Current Status-Daily Note Subjective pt laying in bed upon OT Arrival in no apparent distress. NSG stated pt may participate in OT TX session with focus on increase attention to task and bed mobility in prep for daily activities. pt not oriented. pt follows commands spontaneously Appearance pt in bed post tx with call light, tray, bed alarm on, telesitter in room. Mental Status/Objective Therapy Code Descriptions/Definitions Functional [place] Measure: 0=Not Assessed/NA 4=Minimal Assistance 1=Total Assistance 5=Supervision or Setup 2=Maximal Assistance 6=Modified [place] 3=Moderate Assistance 7=Complete [place] Attachments: SCD's ADL-Treatment Grooming (FIM): 1 (no engagement in task ) Other Treatment pt demo little to no engagement in ADLS task. pt education on proper positioning / hand placement when performing supine to sit in prep for grooming EOB. pt required total assist to move LB toward EOB. pt did make eye contact with therapist during bed mobility. pt required MAX VC/ encouragement to position truck into sitting. pt did demo ability to flex truck and hold position for approx 5-8 seconds then would required total assist. pt required total assist to maintain static sitting balance. Education OT Patient Education: Correct positioning, Energy conservation, Progress toward Goal/Update tx plan, Purpose of tx/functional activities Teaching Recipient: Patient Teaching Methods: Discussion Response to Teaching: Reinforcement Needed OT Short Term Goals Short Term Goals Eating(FIM): 3 Grooming(FIM): 3 Bathing(FIM): 3 Toileting(FIM): 3 Transfers (B,C,W/C) (FIM): 3 1=Demonstrate adherence to instructed precautions during ADL tasks. 2=Patient will verbalize/demonstrate understanding of assistive devices/ modifications for ADL. 3=Patient will improve strength/tolerance for activity to enable patient to perform ADL's. OT Electric Motor Repairing Supervisor Goals Assisted Goals Eating (FIM): 4 Grooming(FIM): 5 Toileting(FIM): 5 Transfers (B,C,W/C) (FIM): 5 1=Demonstrate adherence to instructed precautions during ADL tasks. 2=Patient will verbalize/demonstrate understanding of assistive devices/ modifications for ADL. 3=Patient will improve strength/tolerance for activity to enable patient to perform ADL's. OT Education/Plan Problem List/Assessment pt has made little to no progress towards goals secondary to decrease cognition. pt spontaneously engaged in OT TX session. pt required MAX A - total assist for bed mobility, total assist to maintain static seated balance, and total assist for all ADLS. pt continues to presents with functional limitations affecting areas of ADLS/ functional transfers with deficits in: decrease cognition, decrease ability to follow one step commands, decrease activity tolerance, decrease UE ROM/ strength, decrease static sitting balance, impaired coordination, decrease bed mobility, and decrease safety with functional tasks in sitting and standing. pt would benefit from continued OT services to increase independence for ADLS/ functional transfers and to address above mention deficits. pt will require 24/7 supervision/ assist when medically stable. recommend d/c to SNF with rehab. Discharge Recommendations Plan/Recommendations: Continue POC Therapy D/C Recommendations: 24 hr Supervision, Intermediate (TCU/NH) (with OT) Barriers to Progress cognition, dementia Target Placement alf with rehab Treatment Plan/Plan of Care Treatment,Training & Education: Yes Patient would benefit from OT for education, treatment and training to promote independence in ADL's, mobility, safety and/or upper extremity function for ADL' s. Plan of Care: ADL Retraining, Cognitive Retraining, Functional Mobility, UE Funct Exercise/Act, UE Neuromus Re-Ed/Coord Treatment Duration: Sep 26, 2018 Frequency: 5 times per week Estimated Hrs Per Day: .25 hour per day Agreement: Yes Rehab Potential: Guarded Time/GCodes Start Time: 10:33 Stop Time: 10:45 Billed Treatment Time FA 12 minutes, 1 unit DIANA KOO OT Sep 22, 2018 11:04
[2018-09-22 12:00] VITALS: BP 123/66
--- NOTE | 2018-09-22 13:55 | Physical Therapy Daily Note ---
PT Daily Note-Current Subjective Patient in bed pre tx, confused, only laughs occasionally. Appearance Patient in recliner post tx with nurse call, tray, chair alarm on, telesitter in room. Mental Status Patient Orientation: Confused Transfers Therapy Code Descriptions/Definitions Functional [place] Measure: 0=Not Assessed/NA 4=Minimal Assistance 1=Total Assistance 5=Supervision or Setup 2=Maximal Assistance 6=Modified [place] 3=Moderate Assistance 7=Complete [place] Therapy Quality Codes: 6 Independent with activity with or without an assistive device 5 Patient requires set up or clean up by helper. Patient completes activity by themselves 4 Supervision or touching assist (CGA). [place] provide cues , steadying assist 3 The helper provides less than half the effort to complete the activity 2 The helper provides more than half the effort to complete the activity 1 Dependent. The helper does all the effort to complete an activity 7 Patient refused to complete or attempt activity 9 The patient did not perform the activity before the current illness or injury 88 Not attempted due to Medical conditions or safety concerns Transfers (B, C, W/C) (FIM): 2 Scootin Rollin Supine to/from Sit: 2 Sit to/from Stand: 2 Bed to/from Chair: 2 Patient had worse sitting balance today, retropulsive. Exercises Seated Therapy Exercises: Long arc quads Seated Reps: 10 attempted LE exercises but she would not really participate it was just PROM Treatments bed mobility and transfers, LE exercise Assessment Current Status: Poor Progress Worse sitting balance, ambulation not attempted at this time. PT Short Term Goals Short Term Goals Transfers (B,C,W/C) (FIM): 3 PT Window Shade Cutter Goals Penitentiary Goals PT Penitentiary Goals Time Frame: Sep 26, 2018 Transfers (B,C,W/C) (FIM): 6 Gait (FIM): 6 PT Plan Problem List Problem List: Activity Tolerance, Functional Strength, Safety, Balance, Gait, Transfer, Bed Mobility, ROM Treatment/Plan Treatment Plan: Continue Plan of Care Treatment Plan: Bed Mobility, Education, Functional Activity Flynn, Functional Strength, Gait, Safety, Therapeutic Exercise, Transfers Treatment Duration: Sep 26, 2018 Frequency: 6 times per week Estimated Hrs Per Day: .25 hour per day Patient and/or Family Agrees t: Yes Safety Risks/Education Patient Education: Transfer Techniques, Correct Positioning, Safety Issues Teaching Recipient: Patient Teaching Methods: Demonstration, Discussion Response to Teaching: Reinforcement Needed Time/GCodes Time In: 1335 Time Out: 1350 Total Billed Treatment Time: 15 Total Billed Treatment 1 visit FA JACKIE HOFFMANN PT Sep 22, 2018 13:55
--- NOTE | 2018-09-22 14:15 | NUR ---
Pastoral care visit.
[2018-09-22 15:25] VITALS: BP 127/78
[2018-09-22] MEDS: QUEtiapine 100 MG (SEROquel) TAB IMMEDIATE RELEASE PO SCH (17:36)
[2018-09-22] MEDS: cefTRIAXone FOR IV USE 1,000 MG in WATER (STERILE) FOR INJECTION 10 ML IV SCH (17:36)
[2018-09-22 19:50] VITALS: BP 128/73
--- NOTE | 2018-09-22 21:28 | Progress Note (SOAP) ---
Subjective Date Seen by a Provider: Sep 22, 2018 Time Seen by a Provider: 08:45 Subjective/Events-last exam Fwup uncontrolled seizures, UTI, falls, debility, worsening dementia, mood disorder. Groggy per nursing. Objective Exam Vital Signs Date Time Temp Pulse Resp B/P (MAP) Pulse Ox O2 Delivery O2 Flow Rate FiO2 09/22/18 19:50 98.0 79 18 128/73 (91) 95 Room Air 09/22/18 15:25 98.3 75 18 127/78 (94) 94 Room Air 09/22/18 13:00 72 09/22/18 12:00 97.3 64 16 123/66 (85) 93 Room Air 09/22/18 09:00 Room Air 09/22/18 08:00 97.0 70 16 127/63 (84) 93 Room Air 09/22/18 07:00 63 09/22/18 04:00 96.6 63 20 95/62 (73) 93 Room Air 09/22/18 01:00 70 09/22/18 00:12 98.6 65 16 93/62 (72) 92 Room Air I & O 09/22/18 07:00 Intake Total 1230 ml Balance 1230 ml Capillary Refill : General Appearance: No Apparent Distress Neck: Supple Respiratory: Lungs Clear Cardiovascular: Regular Rate, Rhythm Gastrointestinal: normal bowel sounds, non tender, soft Extremity: Non Tender, No Calf Tenderness, No Pedal Edema Neurologic/Psychiatric: Alert, Disoriented Skin: Warm/Dry Results Lab Laboratory Tests 09/22/18 05:19: White Blood Count 4.3, Red Blood Count 3.97L, Hemoglobin 11.9, Hematocrit 36, Mean Corpuscular Volume 91, Mean Corpuscular Hemoglobin 30, Mean Corpuscular Hemoglobin Concent 33, Red Cell Distribution Width 14.6H, Platelet Count 211, Mean Platelet Volume 9.9, Neutrophils (%) (Auto) 40L, Lymphocytes (%) (Auto) 44 , Monocytes (%) (Auto) 13H, Eosinophils (%) (Auto) 2, Basophils (%) (Auto) 0, Neutrophils # (Auto) 1.7L, Lymphocytes # (Auto) 1.9, Monocytes # (Auto) 0.6, Eosinophils # (Auto) 0.1, Basophils # (Auto) 0.0, Sodium Level 138, Potassium Level 4.3, Chloride Level 103, Carbon Dioxide Level 26, Anion Gap 9, Blood Urea Nitrogen 19H, Creatinine 0.78, Estimat Glomerular Filtration Rate > 60, BUN/ Creatinine Ratio 24, Glucose Level 98, Calcium Level 9.0, Corrected Calcium 9.6 , Total Bilirubin 0.2, Aspartate Amino Transf (AST/SGOT) 11, Alanine Aminotransferase (ALT/SGPT) 10, Alkaline Phosphatase 54, Total Protein 5.2L, Albumin 3.3, Valproic Acid (Depakene) Level 89.1 Microbiology 09/18/18 Urine Culture - Final, Complete Proteus mirabilis Gram Pos Mixed Bacterial [place] Assessment/Plan Assessment/Plan Assess & Plan/Chief Complaint 1. Uncontrolled Seizures--continue depakote and DC ativan to see if any signs of seizures and to see if improvement in grogginess 2. UTI with proteus mirabilis--on Rocephin 3. Frequent Falls--think these have been due to her seizures, PT ordered 4. Debility--OT ordered 5. Worsening Dementia with Behavior Disorder--has done okay with decrease seroquel dose so far 6. Hypertension--BP meds on hold and monitoring BP Clinical Quality Measures Admission Status Admission Dx 1. Uncontrolled Seizures--load with depakote and routine ativan, seizure precautions and IV ativan prn 2. UTI--Rocephin and await culture 3. Dementia with Behavior Disorder--on numerous psych medications 4. Hypertension--currently hypotensive so will hold meds and monitor BP 5. 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
[2018-09-22] MEDS ORDERED: LEVETIRACETAM 500 MG (KEPPRA) TAB PO ONE (21:30)
[2018-09-22] MEDS: VALPROIC ACID SYRUP 250 MG/5 ML UDC PO SCH (22:02)
[2018-09-22] MEDS ORDERED: LEVETIRACETAM 500 MG/ 5 ML UDC ORAL SOLN (KEPPRA) PO ONE (22:15)
[2018-09-22] MEDS ORDERED: LEVETIRACETAM 500 MG/ 5 ML UDC ORAL SOLN (KEPPRA) ONE (22:40)
[2018-09-23 00:29] VITALS: BP 109/59
[2018-09-23 04:00] VITALS: BP 109/67
[2018-09-23] MEDS: CATHETER FLUSH 10 ML SYR IV SCH ×3 (06:03→20:49)
[2018-09-23] MEDS: PANTOPRAZOLE 2 MG/ML LIQUID 200 ML (PROTONIX) PO SCH ×3 (06:04)
[2018-09-23 08:00] VITALS: BP 124/57
[2018-09-23] MEDS ORDERED: LEVETIRACETAM 500 MG (KEPPRA) TAB PO SCH (09:00)
[2018-09-23] MEDS: LEVETIRACETAM 500 MG/ 5 ML UDC ORAL SOLN (KEPPRA) PO SCH ×2 (09:09→20:38)
[2018-09-23] MEDS: TRIHEXYPHENIDYL 5 MG PO SCH ×3 (09:09→20:38)
[2018-09-23] MEDS: FLUoxetine HCL 20 MG (PROzac) CAP PO SCH (09:09)
[2018-09-23] MEDS: APIXABAN 5 MG (ELIQUIS) TABLET PO SCH ×2 (09:09→20:38)
[2018-09-23] MEDS: VALPROIC ACID SYRUP 250 MG/5 ML UDC PO SCH ×2 (09:10→20:38)
--- NOTE | 2018-09-23 10:28 | NUR ---
CM/SS. Referrals completed this a.m. with both [facility] and [facility] in daughter's order of priority, await confirmation of acceptance/denial. Business Continuity Specialist has asked daughter to tour/consider [facility] because of their specialty unit for cognition impaired. Inquired of patient's psychiatric history, she was inpatient at [facility] January 2018 but no other hospitalizations. PCP Dr. Khan has been managing all Rx, including psychiatric regime. Daughter had been taking patient to [facility] psychiatric [facility] but when daughter transferred her to Dr. Khan she has been managing all aspects of patient's care, physical and mental. CARE Assessment pending.
--- NOTE | 2018-09-23 10:33 | Physical Therapy Daily Note ---
PT Daily Note-Current Subjective Pt. in bed, eyes closed, never opens them, moans slightly Pain Location: No Pain Reported Mental Status Patient Orientation: Unresponsive, Mumbles Attachments: SCD's Transfers Therapy Code Descriptions/Definitions Functional [place] Measure: 0=Not Assessed/NA 4=Minimal Assistance 1=Total Assistance 5=Supervision or Setup 2=Maximal Assistance 6=Modified [place] 3=Moderate Assistance 7=Complete [place] Therapy Quality Codes: 6 Independent with activity with or without an assistive device 5 Patient requires set up or clean up by helper. Patient completes activity by themselves 4 Supervision or touching assist (CGA). [place] provide cues , steadying assist 3 The helper provides less than half the effort to complete the activity 2 The helper provides more than half the effort to complete the activity 1 Dependent. The helper does all the effort to complete an activity 7 Patient refused to complete or attempt activity 9 The patient did not perform the activity before the current illness or injury 88 Not attempted due to Medical conditions or safety concerns Transfers (B, C, W/C) (FIM): 1 Scootin Rollin Exercises PROM bilat hip abd, hip/knee flexin, SLRs x 8 ea Treatments pt. very wet in bed, top blanket sheet etc. Nursing and documentation indicates pt. has been having numerous seizures and has required medication to keep her seizure free which also may leave her obtunded at times. Rx this date was to attempt active rolling for complete bed and gown change. Pt. actually resistive to rolling. appears she does not have realization of where she is in space and fers falling Assessment Current Status: Poor Progress pt. does not actively participate in rx at this time PT Short Term Goals Short Term Goals Transfers (B,C,W/C) (FIM): 3 PT Latin American Studies Professor Goals Senior Care Goals PT Latin American Studies Professor Goals Time Frame: Sep 26, 2018 Transfers (B,C,W/C) (FIM): 6 Gait (FIM): 6 PT Plan Treatment/Plan Treatment Plan: Continue Plan of Care Treatment Plan: Bed Mobility, Education, Functional Activity Flynn, Functional Strength, Gait, Safety, Therapeutic Exercise, Transfers Treatment Duration: Sep 26, 2018 Frequency: 6 times per week Estimated Hrs Per Day: .25 hour per day Patient and/or Family Agrees t: Yes Safety Risks/Education Patient Education: Transfer Techniques, Correct Positioning, Safety Issues Teaching Recipient: Patient Response to Teaching: Unable to Return Demonstration, Unable to Comprehend, Reinforcement Needed Time/GCodes Time In: 945 Time Out: 1008 Total Billed Treatment Time: 23 Total Billed Treatment 1,EX8,FA15 G Codes Necessary: Yes ARMOND ALVARADO HEAD WAITRESS Sep 23, 2018 10:33
--- NOTE | 2018-09-23 10:58 | Occupational Ther Daily Note ---
OT Current Status-Daily Note Subjective Pt sleeping in bed. Attempted to rosario pt with touch and name, opened eyes for a bit then closed them again. Nrsg in room, assist to transfer and bathe. Mental Status/Objective Patient Orientation: Person, Unable to Assess (pt mumbles and keeps eyes closed ) Therapy Code Descriptions/Definitions Functional [place] Measure: 0=Not Assessed/NA 4=Minimal Assistance 1=Total Assistance 5=Supervision or Setup 2=Maximal Assistance 6=Modified [place] 3=Moderate Assistance 7=Complete [place] ADL-Treatment Max A x2 for all transfers. Attempted to have pt wash hands, pt did not acknowledge or attempt. Dependent with bathing and clothing manipulation. Pt would not open eyes or acknowledge/respond to commands. After therapy, pt lying in bed with call light/phone in reach. Nrsg in room. All needs met in room. Bathing (FIM): 1 Transfers (B, C, W/C) (FIM): 1 OT Short Term Goals Short Term Goals Eating(FIM): 3 Grooming(FIM): 3 Bathing(FIM): 3 Toileting(FIM): 3 Transfers (B,C,W/C) (FIM): 3 1=Demonstrate adherence to instructed precautions during ADL tasks. 2=Patient will verbalize/demonstrate understanding of assistive devices/ modifications for ADL. 3=Patient will improve strength/tolerance for activity to enable patient to perform ADL's. OT Retirement Goals Jewel Lathe Operator Goals Eating (FIM): 4 Grooming(FIM): 5 Toileting(FIM): 5 Transfers (B,C,W/C) (FIM): 5 1=Demonstrate adherence to instructed precautions during ADL tasks. 2=Patient will verbalize/demonstrate understanding of assistive devices/ modifications for ADL. 3=Patient will improve strength/tolerance for activity to enable patient to perform ADL's. OT Education/Plan Problem List/Assessment Assessment: Decreased Activ Tolerance, Decreased Safety Aware, Decreased UE Strength, Dependent Transfers, Impaired Bed Mobility, Impaired Cognition, Impaired Coordination, Impaired Funct Balance, Impaired I ADL's, Impaired Self- Care Skills pt has made little to no progress towards goals secondary to decrease cognition. pt spontaneously engaged in OT TX session. pt required MAX A - total assist for bed mobility, total assist to maintain static seated balance, and total assist for all ADLS. pt continues to presents with functional limitations affecting areas of ADLS/ functional transfers with deficits in: decrease cognition, decrease ability to follow one step commands, decrease activity tolerance, decrease UE ROM/ strength, decrease static sitting balance, impaired coordination, decrease bed mobility, and decrease safety with functional tasks in sitting and standing. pt would benefit from continued OT services to increase independence for ADLS/ functional transfers and to address above mention deficits. pt will require 24/7 supervision/ assist when medically stable. recommend d/c to SNF with rehab. Discharge Recommendations Plan/Recommendations: Continue POC Treatment Plan/Plan of Care Patient would benefit from OT for education, treatment and training to promote independence in ADL's, mobility, safety and/or upper extremity function for ADL' s. Plan of Care: ADL Retraining, Cognitive Retraining, Functional Mobility, UE Funct Exercise/Act, UE Neuromus Re-Ed/Coord Treatment Duration: Sep 26, 2018 Frequency: 5 times per week Estimated Hrs Per Day: .25 hour per day Agreement: Yes Rehab Potential: Guarded Time/GCodes Start Time: 10:20 Stop Time: 10:35 Total Time Billed (hr/min): 15 Billed Treatment Time 1 visit-ADL 1 (15 min) DAWN ÁLVAREZ Sep 23, 2018 10:58
[2018-09-23 12:00] VITALS: BP 140/67
--- NOTE | 2018-09-23 13:46 | NUR ---
CM/SONNY, [facility] has accepted patient for Medicare skilled admission when medically stable. Discussed with physician, anticipate discharge tomorrow. CARE Assessment pending.
[2018-09-23 15:54] VITALS: BP 119/76
[2018-09-23] MEDS: QUEtiapine 100 MG (SEROquel) TAB IMMEDIATE RELEASE PO SCH (18:44)
[2018-09-23] MEDS: cefTRIAXone FOR IV USE 1,000 MG in WATER (STERILE) FOR INJECTION 10 ML IV SCH (18:45)
[2018-09-23 20:00] VITALS: BP 130/70
--- NOTE | 2018-09-23 20:30 | Progress Note (SOAP) ---
Subjective Date Seen by a Provider: Sep 23, 2018 Time Seen by a Provider: 12:35 Subjective/Events-last exam Fwup uncontrolled seizures, UTI, falls, debility, worsening dementia, mood disorder. Less groggy with DC of ativan but more jerks/involuntary movements. Objective Exam Vital Signs Date Time Temp Pulse Resp B/P (MAP) Pulse Ox O2 Delivery O2 Flow Rate FiO2 09/23/18 19:38 74 09/23/18 15:54 98.4 66 16 119/76 (90) 90 Room Air 09/23/18 12:53 64 09/23/18 12:00 98.5 67 18 140/67 (91) 94 Room Air 09/23/18 09:00 Room Air 09/23/18 08:00 98.2 67 18 124/57 (79) 92 Room Air 09/23/18 07:00 56 09/23/18 04:00 97.2 56 16 109/67 (81) 93 Room Air 09/23/18 01:00 60 09/23/18 00:29 97.8 71 16 109/59 (76) 90 Room Air 09/22/18 21:00 Room Air I & O 09/23/18 07:00 Intake Total 440 ml Balance 440 ml Capillary Refill : General Appearance: No Apparent Distress Neck: Supple Respiratory: Lungs Clear Cardiovascular: Regular Rate, Rhythm Gastrointestinal: normal bowel sounds, non tender, soft Extremity: Non Tender, No Calf Tenderness, No Pedal Edema Neurologic/Psychiatric: Alert, Disoriented Skin: Warm/Dry Results Lab Microbiology 09/18/18 Urine Culture - Final, Complete Proteus mirabilis Gram Pos Mixed Bacterial [place] Assessment/Plan Assessment/Plan Assess & Plan/Chief Complaint 1. Uncontrolled Seizures--continue depakote, started Keppra as wel 2. UTI with proteus mirabilis--on Rocephin 3. Frequent Falls--think these have been due to her seizures, PT ordered 4. Debility--OT ordered 5. Worsening Dementia with Behavior Disorder--has done okay with decrease seroquel dose so far and will plan on decreasing more 6. Hypertension--BP meds on hold and monitoring BP Clinical Quality Measures Admission Status Admission Dx 1. Uncontrolled Seizures--load with depakote and routine ativan, seizure precautions and IV ativan prn 2. UTI--Rocephin and await culture 3. Dementia with Behavior Disorder--on numerous psych medications 4. Hypertension--currently hypotensive so will hold meds and monitor BP 5. 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
[2018-09-24] VITALS: BP 125/65
[2018-09-24 04:00] VITALS: BP 105/57
[2018-09-24] MEDS: PANTOPRAZOLE 2 MG/ML LIQUID 200 ML (PROTONIX) PO SCH ×3 (06:15)
[2018-09-24] MEDS: CATHETER FLUSH 10 ML SYR IV SCH ×3 (06:16→19:55)
[2018-09-24] MEDS: VALPROIC ACID SYRUP 250 MG/5 ML UDC PO SCH ×2 (07:51→19:54)
[2018-09-24] MEDS: APIXABAN 5 MG (ELIQUIS) TABLET PO SCH ×2 (07:51→19:54)
[2018-09-24] MEDS: POLYETHYLENE GLYCOL 17 GM (MIRALAX) PACK PO PRN ×2 (07:51→19:55)
[2018-09-24] MEDS: TRIHEXYPHENIDYL 5 MG PO SCH ×3 (07:52→19:54)
[2018-09-24] MEDS: FLUoxetine HCL 20 MG (PROzac) CAP PO SCH (07:52)
[2018-09-24] MEDS: LEVETIRACETAM 500 MG/ 5 ML UDC ORAL SOLN (KEPPRA) PO SCH ×2 (07:52→19:54)
[2018-09-24 08:00] VITALS: BP 132/85
--- NOTE | 2018-09-24 10:35 | NUR ---
CM/SS. Patient has been accepted for skilled admission to [facility] when medically stable, to be determined by physician. Daughter/POA Kira has expressed her concern that her mother is not ready for discharge and she intended to reach out to physician office re same. CARE Assessment completed, faxed MLP and [facility]ADS. Prepared continuum of care packet to accompany patient. Discussed with Unit RN. Discharge when physician indicates and orders are completed.
--- NOTE | 2018-09-24 11:06 | Occupational Ther Daily Note ---
OT Current Status-Daily Note Subjective pt laying in bed upon OT Arrival in no apparent distress. pt daughter present in room for OT TX session. session with focus on education to family, and increase independence with eating. pt daughter stated pt was able to feed self with MOD VC by hand, ambulate around home using no AE PLOF. pt daughter also stated pt was dependent for grooming, dressing, bathing, and toileting. Mental Status/Objective Patient Orientation: Confused, Mumbles Therapy Code Descriptions/Definitions Functional [place] Measure: 0=Not Assessed/NA 4=Minimal Assistance 1=Total Assistance 5=Supervision or Setup 2=Maximal Assistance 6=Modified [place] 3=Moderate Assistance 7=Complete [place] ADL-Treatment Eating (FIM): 1 (pt required hand over hand asist to feed breakfast this date while sitting 90 degress in bed. pt engaged this date by stated "more" when needed another bite of food. ) Other Treatment daughter education on proper positioning when performing eating task. all questions and answered. daughter education on pt ability to learn new tasks this date and proper bed positioning secondary to protecting skin from breakdown. daughter verbalized understanding. daughter/ patient education on therapy purpose, role, goals. pt would maintain alertness for approx 5-6 seconds then would "fall asleep" Education OT Patient Education: Energy conservation Teaching Recipient: Patient, Family Teaching Methods: Discussion Response to Teaching: Verbalize Understanding OT Short Term Goals Short Term Goals Eating(FIM): 3 Grooming(FIM): 3 Bathing(FIM): 3 Toileting(FIM): 3 Transfers (B,C,W/C) (FIM): 3 1=Demonstrate adherence to instructed precautions during ADL tasks. 2=Patient will verbalize/demonstrate understanding of assistive devices/ modifications for ADL. 3=Patient will improve strength/tolerance for activity to enable patient to perform ADL's. OT Residential Goals Residential Goals Eating (FIM): 4 Grooming(FIM): 5 Toileting(FIM): 5 Transfers (B,C,W/C) (FIM): 5 1=Demonstrate adherence to instructed precautions during ADL tasks. 2=Patient will verbalize/demonstrate understanding of assistive devices/ modifications for ADL. 3=Patient will improve strength/tolerance for activity to enable patient to perform ADL's. OT Education/Plan Problem List/Assessment pt has made little to no progress towards goals secondary to decrease cognition. pt spontaneously engaged in OT TX session 5-6 seconds at a time. . pt required MAX A - total assist for bed mobility, total assist to maintain static seated balance, and total assist for all ADLS. pt continues to presents with functional limitations affecting areas of ADLS/ functional transfers with deficits in: decrease cognition, decrease ability to follow one step commands, decrease activity tolerance, decrease UE ROM/ strength, decrease static sitting balance, impaired coordination, decrease bed mobility, and decrease safety with functional tasks in sitting and standing. pt would benefit from continued OT services to increase independence for ADLS/ functional transfers and to address above mention deficits. pt will require 24/ supervision/ assist when medically stable. recommend d/c to SNF with rehab. OT frequency decrease to 2 times per week secondary to pt alertness during OT TX session. OT will monitor pt and increase frequency when appropriate. Discharge Recommendations Plan/Recommendations: Continue POC Treatment Plan/Plan of Care Treatment,Training & Education: Yes Patient would benefit from OT for education, treatment and training to promote independence in ADL's, mobility, safety and/or upper extremity function for ADL' s. Plan of Care: ADL Retraining, Cognitive Retraining, Functional Mobility, UE Funct Exercise/Act, UE Neuromus Re-Ed/Coord Treatment Duration: Sep 26, 2018 Frequency: 2 times per week Estimated Hrs Per Day: .25 hour per day Agreement: Yes Rehab Potential: Guarded Time/GCodes Start Time: 09:45 Stop Time: 10:10 Billed Treatment Time ADL 1 unit 15 minutes FA 1 unit 10 minutes DIANA KOO OT Sep 24, 2018 11:06
--- NOTE | 2018-09-24 11:23 | Physical Therapy Daily Note ---
PT Daily Note-Current Subjective Pt. did respond and open eyes briefly today when addressed but did not keep them open or speak to this HOME ENERGY INSPECTOR. In discussion with RN she shares that she does not feel it is safe to get pt. up in recliner as she thrashes around and is unsafe etc. Mental Status Patient Orientation: Unresponsive Transfers Therapy Code Descriptions/Definitions Functional [place] Measure: 0=Not Assessed/NA 4=Minimal Assistance 1=Total Assistance 5=Supervision or Setup 2=Maximal Assistance 6=Modified [place] 3=Moderate Assistance 7=Complete [place] Therapy Quality Codes: 6 Independent with activity with or without an assistive device 5 Patient requires set up or clean up by helper. Patient completes activity by themselves 4 Supervision or touching assist (CGA). [place] provide cues , steadying assist 3 The helper provides less than half the effort to complete the activity 2 The helper provides more than half the effort to complete the activity 1 Dependent. The helper does all the effort to complete an activity 7 Patient refused to complete or attempt activity 9 The patient did not perform the activity before the current illness or injury 88 Not attempted due to Medical conditions or safety concerns rolling left and right with resistance, poor awareness of where she is in space Exercises Supine Ex: Ankle pumps, Rolling, Heel Slides, Scooting, Straight leg raise, Hip abd/add Supine Reps: 12 (passive) Assessment Current Status: Poor Progress poor tolerance for up right, apparently seems to trigger seizures and pt. is unsafe sitting PT Short Term Goals Short Term Goals Transfers (B,C,W/C) (FIM): 3 PT Custodial Goals Custodial Goals PT Bill Distributor Goals Time Frame: Sep 26, 2018 Transfers (B,C,W/C) (FIM): 6 Gait (FIM): 6 PT Plan Treatment/Plan Treatment Plan: Continue Plan of Care Treatment Plan: Bed Mobility, Education, Functional Activity Flynn, Functional Strength, Gait, Safety, Therapeutic Exercise, Transfers Treatment Duration: Sep 26, 2018 Frequency: 6 times per week Estimated Hrs Per Day: .25 hour per day Patient and/or Family Agrees t: Yes Safety Risks/Education Response to Teaching: Unable to Return Demonstration, Unable to Comprehend Time/GCodes Time In: 1055 Time Out: 1110 Total Billed Treatment Time: 15 Total Billed Treatment 1,EX15m G Codes Necessary: No ARMOND ALVARADO HOME ENERGY INSPECTOR Sep 24, 2018 11:23
[2018-09-24 12:00] VITALS: BP 130/85
--- NOTE | 2018-09-24 12:39 | Progress Note (SOAP) ---
Subjective Date Seen by a Provider: Sep 24, 2018 Time Seen by a Provider: 12:36 Subjective/Events-last exam Fwup uncontrolled seizures, UTI, falls, debility, worsening dementia, mood disorder. Jerking better but still very groggy. Objective Exam Vital Signs Date Time Temp Pulse Resp B/P (MAP) Pulse Ox O2 Delivery O2 Flow Rate FiO2 09/24/18 09:00 Room Air 09/24/18 08:00 96.7 59 16 132/85 (101) 92 Room Air 09/24/18 07:00 16 09/24/18 04:12 58 09/24/18 04:00 97.5 54 18 105/57 (73) 92 Room Air 09/24/18 00:00 98.0 65 18 125/65 (85) 91 Room Air 09/23/18 21:00 Room Air 09/23/18 20:00 98.2 76 16 130/70 (90) 90 Room Air 09/23/18 19:38 74 09/23/18 15:54 98.4 66 16 119/76 (90) 90 Room Air 09/23/18 12:53 64 Capillary Refill : General Appearance: No Apparent Distress Respiratory: Lungs Clear Cardiovascular: Regular Rate, Rhythm Gastrointestinal: normal bowel sounds, non tender, soft Neurologic/Psychiatric: Other (await but slow to answer questions) Skin: Warm/Dry Results Lab Microbiology 09/18/18 Urine Culture - Final, Complete Proteus mirabilis Gram Pos Mixed Bacterial [place] Assessment/Plan Assessment/Plan Assess & Plan/Chief Complaint 1. Uncontrolled Seizures--decrease depakote dose since staff not noting jerking since added on Keppra 2. UTI with proteus mirabilis--on Rocephin 3. Frequent Falls--think these have been due to her seizures, PT ordered 4. Debility--OT ordered 5. Worsening Dementia with Behavior Disorder--DC seroquel as is on depakote which is a mood stabilizer 6. Hypertension--BP meds on hold and monitoring BP 7. [facility] so [facility] Clinical Quality Measures Admission Status Admission Dx 1. Uncontrolled Seizures--load with depakote and routine ativan, seizure precautions and IV ativan prn 2. UTI--Rocephin and await culture 3. Dementia with Behavior Disorder--on numerous psych medications 4. Hypertension--currently hypotensive so will hold meds and monitor BP 5. 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
--- NOTE | 2018-09-24 14:03 | NUR ---
DR. GOMEZ'S NURSE NOTIFIED OF PT. NOT VOIDING. BLADDER RPBO=[id number] CC. AND THAT PT. HAS NOT HAD A BM SINCE THE September. AND MIRALAX GIVEN PO THIS AM.
[2018-09-24 15:35] VITALS: BP 113/57
[2018-09-24] MEDS ORDERED: BISACODYL 10 MG SUPP (DULCOLAX) PR NR (16:45)
--- NOTE | 2018-09-24 17:00 | NUR ---
ST. CATH DONE WITH # 14 RED RUBBER CATH. 650 CC SL. CLOUDY YELLOW URINE RETURNED. TARUN. WELL. UA TO LAB.
[2018-09-24] MEDS: NS IV 1000 ML 1,000 ML IV SCH (17:09)
--- NOTE | 2018-09-24 17:09 | NUR ---
DULCOLAX SUPP GIVEN PER DR. CADET'S.
[2018-09-24] MEDS: cefTRIAXone FOR IV USE 1,000 MG in WATER (STERILE) FOR INJECTION 10 ML IV SCH (17:14)
[2018-09-24 17:18] LABS: BILIRUBIN,URINE NEGATIVE (NEGATIVE); CLARITY,URINE SLIGHTLY CLOUDY; COLOR,URINE YELLOW; GLUCOSE, URINE (UA) NEGATIVE (NEGATIVE); KETONES,URINE NEGATIVE (NEGATIVE); LEUKOCYTE ESTERASE ,URINE 1+ (NEGATIVE); NITRITE,URINE NEGATIVE (NEGATIVE); PH,URINE 5 (5-9); PROTEIN,URINE 1+ (NEGATIVE); UROBILINOGEN,URINE NORMAL (NORMAL)
[2018-09-24 17:29] LABS: AMORPHOUS SEDIMENT,UR MOD AMOR URATES /LPF; BACTERIA,URINE TRACE /HPF; SQUAMOUS EPITHELIAL CELL,UR 0-2 /HPF
[2018-09-24 18:15] LABS: BASOPHILS % (AUTO) 0 % (0-10); EOSINOPHILS # (AUTO) 0.1 10^3/uL (0.0-0.3); EOSINOPHILS % (AUTO) 2 % (0-10); HEMATOCRIT 43 % (35-52); HEMOGLOBIN 13.7 G/DL (11.5-16.0); LYMPHOCYTES # (AUTO) 1.5 X 10^3 (1.0-4.0); LYMPHOCYTES % (AUTO) 32 % (12-44); MEAN CORPUSCULAR HEMOGLOBIN 30 PG (25-34); MEAN CORPUSCULAR HGB CONC 32 G/DL (32-36); MEAN CORPUSCULAR VOLUME 92 FL (80-99); MEAN PLATELET VOLUME 9.6 FL (7.4-10.4); MONOCYTES # (AUTO) 0.6 X 10^3 (0.0-1.0); MONOCYTES % (AUTO) 12 % (0-12); NEUTROPHILS # (AUTO) 2.6 X 10^3 (1.8-7.8); NEUTROPHILS % (AUTO) 55 % (42-75); PLATELET COUNT 210 10^3/uL (130-400); RED CELL DISTRIBUTION WIDTH 14.9 % (10.0-14.5); WHITE BLOOD COUNT 4.7 10^3/uL (4.3-11.0)
[2018-09-24 18:35] LABS: ALANINE AMINOTRANSFERASE 13 U/L (0-55); ALBUMIN 3.8 GM/DL (3.2-4.5); ALKALINE PHOSPHATASE 65 U/L (40-136); BILIRUBIN,TOTAL 0.2 MG/DL (0.1-1.0); BUN/CREATININE RATIO 26; CALCIUM 9.5 MG/DL (8.5-10.1); CARBON DIOXIDE 28 MMOL/L (21-32); CHLORIDE 103 MMOL/L (98-107); GFR ESTIMATED > 60; GLUCOSE 112 MG/DL (70-105); POTASSIUM 4.7 MMOL/L (3.6-5.0); SODIUM 140 MMOL/L (135-145); TOTAL PROTEIN 6.1 GM/DL (6.4-8.2)
--- NOTE | 2018-09-24 19:11 | NUR ---
NO RESULTS FROM DULCOLAX SUPP.
[2018-09-24 19:45] VITALS: BP 124/60
[2018-09-25 00:39] VITALS: BP 126/62
[2018-09-25 04:00] VITALS: BP 143/72
[2018-09-25] MEDS: CATHETER FLUSH 10 ML SYR IV SCH ×3 (05:09→20:42)
--- NOTE | 2018-09-25 05:30 | NUR ---
pt. unable to void dr. chavez notified, new orders received: straight cath one time, anita this am
[2018-09-25] MEDS: NS IV 1000 ML 1,000 ML IV SCH ×2 (06:04→17:35)
[2018-09-25] MEDS: PANTOPRAZOLE 2 MG/ML LIQUID 200 ML (PROTONIX) PO SCH ×3 (06:13)
[2018-09-25 08:00] VITALS: BP 130/71
[2018-09-25] MEDS: FLUoxetine HCL 20 MG (PROzac) CAP PO SCH (09:51)
[2018-09-25] MEDS: APIXABAN 5 MG (ELIQUIS) TABLET PO SCH ×2 (09:51→20:28)
[2018-09-25] MEDS: LEVETIRACETAM 500 MG/ 5 ML UDC ORAL SOLN (KEPPRA) PO SCH ×2 (09:51→20:29)
[2018-09-25] MEDS: TRIHEXYPHENIDYL 5 MG PO SCH ×3 (09:51→20:28)
[2018-09-25] MEDS: VALPROIC ACID SYRUP 250 MG/5 ML UDC PO SCH ×2 (09:51→20:29)
--- NOTE | 2018-09-25 11:22 | Diagnostic Imaging Report ---
Indication: Constipation KUB 9:05 AM There are 2 calcifications right upper quadrant consistent with gallstones. There is large amount of stool in the ascending, transverse colon and splenic flexure. Bowel gas pattern is normal. Impression: Cholecystolithiasis. Fecal stasis. The rectosigmoid colon are relatively clear. Dictated by: Dictated on workstation # [id number]
--- NOTE | 2018-09-25 11:34 | Physical Therapy Daily Note ---
PT Daily Note-Current Subjective Pt keeps eyes closed most of treatment, if she opens them, she does not make eye contact. Transfers Therapy Code Descriptions/Definitions Functional [place] Measure: 0=Not Assessed/NA 4=Minimal Assistance 1=Total Assistance 5=Supervision or Setup 2=Maximal Assistance 6=Modified [place] 3=Moderate Assistance 7=Complete [place] Therapy Quality Codes: 6 Independent with activity with or without an assistive device 5 Patient requires set up or clean up by helper. Patient completes activity by themselves 4 Supervision or touching assist (CGA). [place] provide cues , steadying assist 3 The helper provides less than half the effort to complete the activity 2 The helper provides more than half the effort to complete the activity 1 Dependent. The helper does all the effort to complete an activity 7 Patient refused to complete or attempt activity 9 The patient did not perform the activity before the current illness or injury 88 Not attempted due to Medical conditions or safety concerns Treatments Pt unable to effectively participate with treatment at this time. She does not participate with therapy and does not follow cues. With that said, she is not resistive. Dependent to transfer to sit EOB and max assist to seated EOB balance. SPT bed to chair, dependent with limited WB through B LE's. Pt up in chair post treatment with legs elevated, seat reclined, supported on her right with a pillow and chair alarm activated. Assessment No functional progress noted at this time as pt unable to effectively participate with therapy. PT Short Term Goals Short Term Goals Transfers (B,C,W/C) (FIM): 3 PT Penitentiary Goals Penitentiary Goals PT Cash Room Clerk Goals Time Frame: Sep 26, 2018 Transfers (B,C,W/C) (FIM): 6 Gait (FIM): 6 PT Plan Problem List Problem List: Activity Tolerance, Functional Strength, Safety Treatment/Plan Treatment Plan: Continue Plan of Care Treatment Plan: Bed Mobility, Education, Functional Activity Flynn, Functional Strength, Gait, Safety, Therapeutic Exercise, Transfers Treatment Duration: Sep 26, 2018 Frequency: 6 times per week Estimated Hrs Per Day: .25 hour per day Patient and/or Family Agrees t: Yes Time/GCodes Time In: 1102 Time Out: 1115 Total Billed Treatment Time: 13 Total Billed Treatment visit FA 13 DAWN SMITH PT Sep 25, 2018 11:34
[2018-09-25 12:00] VITALS: BP 121/73
[2018-09-25] MEDS ORDERED: POLYETHYLENE GLYCOL 17 GM (MIRALAX) PACK PO NR (12:45)
[2018-09-25 16:00] VITALS: BP 144/73
--- NOTE | 2018-09-25 17:44 | Progress Note (SOAP) ---
Subjective Date Seen by a Provider: Sep 25, 2018 Time Seen by a Provider: 12:30 Subjective/Events-last exam Fwup uncontrolled seizures, UTI, falls, debility, worsening dementia, mood disorder. Had constipation and urinary retention. Nurse reports had large BM just before her KUB this morning then was able to urinate. Little less groggy today. Objective Exam Vital Signs Date Time Temp Pulse Resp B/P (MAP) Pulse Ox O2 Delivery O2 Flow Rate FiO2 09/25/18 16:00 98.9 92 20 144/73 (96) 93 Room Air 09/25/18 13:01 75 09/25/18 12:00 99.4 79 18 121/73 (89) 93 Room Air 09/25/18 09:00 93 Room Air 09/25/18 08:00 99.7 80 18 130/71 (90) 93 Room Air 09/25/18 07:00 80 09/25/18 04:00 98.3 82 22 143/72 (95) 95 Room Air 09/25/18 01:00 77 09/25/18 00:39 98.1 75 16 126/62 (83) 93 Room Air 09/24/18 20:45 Room Air 09/24/18 19:45 98.4 75 18 124/60 (81) 94 Room Air 09/24/18 19:00 78 I & O 09/25/18 07:00 Intake Total 1800 ml Output Total 351 ml Balance 1449 ml Capillary Refill : Less Than 3 Seconds General Appearance: No Apparent Distress Neck: Supple Respiratory: Lungs Clear Cardiovascular: Regular Rate, Rhythm Gastrointestinal: normal bowel sounds, soft, tenderness (appears to have some mild tenderness) Neurologic/Psychiatric: Alert, Disoriented Results Lab Microbiology 09/18/18 Urine Culture - Final, Complete Proteus mirabilis Gram Pos Mixed Bacterial [place] Assessment/Plan Assessment/Plan Assess & Plan/Chief Complaint 1. Uncontrolled Seizures--decrease depakote dose since staff not noting jerking since added on Keppra and increase the Keppra dose 2. UTI with proteus mirabilis--on Rocephin 3. Frequent Falls--think these have been due to her seizures, PT ordered 4. Debility--OT ordered 5. Worsening Dementia with Behavior Disorder--DCed seroquel last night 6. Hypertension--BP meds on hold and monitoring BP 7. Constipation--repeat miralax as KUB shows large amount of stool 8. Urinary retention--improved after BM 7. [facility] will accept so DC plans for tomorrow to [place] once urinary retention and constipation improved Clinical Quality Measures Admission Status Admission Dx 1. Uncontrolled Seizures--load with depakote and routine ativan, seizure precautions and IV ativan prn 2. UTI--Rocephin and await culture 3. Dementia with Behavior Disorder--on numerous psych medications 4. Hypertension--currently hypotensive so will hold meds and monitor BP 5. 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
[2018-09-25 20:00] VITALS: BP 134/69
[2018-09-26 00:46] VITALS: BP 114/58
--- NOTE | 2018-09-26 03:57 | NUR ---
THIS RN CALLED DR. GOMEZ IN REGARDS TO THE PT'S BLOOD PRESSURE BEING 90/60 WITH A HEART RATE OF 69 BPM. ORDERS RECEIVED TO INCREASE NORMAL SALINE FROM 75 MLS/HR TO 100 MLS/HR, KUB 1 VIEW IN THE AM, PROTONIX 40 MG IV ONCE, BLADDER SCAN PT, AND IF BLADDER SCAN GREATER THAN 400 MLS STRAIGHT CATH PT. ORDERS READ BACK AND VERIFIED.
[2018-09-26 04:00] VITALS: BP 92/58
[2018-09-26] MEDS ORDERED: PANTOPRAZOLE 40 MG (PROTONIX) VIAL IV ONE (04:00)
--- NOTE | 2018-09-26 04:00 | NUR ---
BLADDER SCANNER SHOWING 257 MLS IN THE BLADDER AT THIS TIME.
--- NOTE | 2018-09-26 05:58 | NUR ---
BLADDER SCANNER SHOWING 341 AT THIS TIME.
[2018-09-26] MEDS: NS IV 1000 ML 1,000 ML IV SCH (06:31)
[2018-09-26] MEDS: PANTOPRAZOLE 2 MG/ML LIQUID 200 ML (PROTONIX) PO SCH ×3 (06:35)
[2018-09-26] MEDS: CATHETER FLUSH 10 ML SYR IV SCH (06:35)
--- NOTE | 2018-09-26 06:40 | NUR ---
PT HAD INCONTINENT VOID TIMES 1.
[2018-09-26 08:00] VITALS: BP 115/71
[2018-09-26] MEDS: APIXABAN 5 MG (ELIQUIS) TABLET PO SCH (09:16)
[2018-09-26] MEDS: VALPROIC ACID SYRUP 250 MG/5 ML UDC PO SCH (09:16)
[2018-09-26] MEDS: FLUoxetine HCL 20 MG (PROzac) CAP PO SCH (09:16)
[2018-09-26] MEDS: TRIHEXYPHENIDYL 5 MG PO SCH (09:16)
[2018-09-26] MEDS: LEVETIRACETAM 500 MG/ 5 ML UDC ORAL SOLN (KEPPRA) PO SCH (09:19)
--- NOTE | 2018-09-26 10:45 | Diagnostic Imaging Report ---
Indication: Low blood pressure and uncontrolled seizure. Time of exam: 9:58 AM Portable supine radiograph of the abdomen was obtained. Study is compromised by motion artifact. There is some mild stool and gaseous distention to the left colon. No other significant abnormality is seen. No pathologic calcifications are identified. Impression: Limited study due to significant motion artifact. No significant abnormality is detected. Dictated by: Dictated on workstation # [id number]
--- NOTE | 2018-09-26 11:49 | NUR ---
SWINGBED Evaluation completed after lengthy discussion with Dr. Khan regarding need for close monitoring of medications with adjustments for new onset seizures as well as Physical and occupational therapies to evaluate and treat. Spoke with daughter, Kira who is in agreement with Skilled in the hospital for previously stated reasons.
--- NOTE | 2018-09-26 13:16 | Discharge Summary ---
Diagnosis/Chief Complaint Date of Admission Sep 18, 2018 at 14:44 Date of Discharge Sep 26, 2018 at 11:28 Discharge Date: Sep 26, 2018 Discharge Diagnosis 1. Uncontrolled Seizures--improving with medication adjustments 2. UTI with proteus mirabilis--treated 3. Frequent Falls--think these have been due to her seizures, PT ordered 4. Debility--OT ordered 5. Worsening Dementia with Behavior Disorder--think her rapid decline has been due to the uncontrolled seizures as well as medication adjustments for those seizures, plan if for DC to SNF but did bring up hospice with daughter as well 6. Hypertension--BP meds on hold and monitoring BP 7. Constipation--improving 8. Urinary retention--likely due to constipation--is intermittent at this time Reason Hospital Visit This is a 67 year old female with a history of dementia who has recently been diagnosed with seizures. She has been having numerous falls and ongoing seizures despite starting medications. The seizures have became so frequent that she is even unable to get out of bed as they knock her back down. She has also been more combative recently and does have a history of recurrent UTIs. It is decided to admit her for faster loading of depakote as well as ativan prn and seizure precautions. She also needs IV antibiotics for her UTI as the infection is likely affecting her combativeness and may be lowering her seizure threshold. Discharge Summary Hospital Course Hospital Course This is a 67 year old female with a history of dementia who has recently been diagnosed with seizures. She has been having numerous falls and ongoing seizures despite starting medications. The seizures have became so frequent that she is even unable to get out of bed as they knock her back down. She has also been more combative recently and does have a history of recurrent UTIs. It is decided to admit her for faster loading of depakote as well as ativan prn and seizure precautions. She also needs IV antibiotics for her UTI as the infection is likely affecting her combativeness and may be lowering her seizure threshold. She was admitted to the medical floor and started on depakote as well as routine ativan. The first 2 days she was groggy but had no signs of seizures so the ativan was discontinued to see if she would be more alert. When the ativan was discontinued, she had jerking and spastic movements so keppra was added. She continued to be groggy so the keppra was increased and her depakote dose was decreased. She was treated with rocephin IV for her UTI. She continued to require assistance eating. She displayed no further combativeness so her seroquel was decreased since the depakote is also a mood stabilizer and then then seroquel was discontinued completely. She has shown no increase in labile mood since discontinuing the seroquel. Her hospital stay was also prolonged due to constipation and urinary retention. She had to be straight cathed and was given both miralax as well as suppositories to get her bowels moving. She was evaluated and [facility] [place] [facility] but was still requiring monitoring of her response to the seizure medications and adjustments as well as the complication of the urinary retention. It was decided to admit to SWING bed until she was more stabilized for discharge to the SNF. Labs Laboratory Tests 09/24/18 16:10: Red Cell Distribution Width 14.9H, Blood Urea Nitrogen 21H, Glucose Level 112H, Total Protein 6.1L 09/24/18 17:00: Urine Protein 1+H, Urine Leukocyte Esterase 1+H, Urine Crystals PRESENTH, Urine Amorphous Sediment MOD [place] URATESH Procedures None. Discharge Physical Examination Allergies: Coded Allergies: morphine (Verified Allergy, Intermediate, 08/01/17) butorphanol (Verified Allergy, Unknown, 08/01/17) Vitals & I&Os Vital Signs Date Time Temp Pulse Resp B/P (MAP) Pulse Ox O2 Delivery O2 Flow Rate FiO2 09/26/18 08:00 98.5 70 18 115/71 (86) 92 Room Air 09/26/18 04:00 2.00 General Appearance: Alert (awakens easier this AM and interacts a little bit more with my questions) Respiratory: Clear to Auscultation Cardiovascular: Regular Rate Abdominal: Normal Bowel Sounds, Soft, Other (appears to have some mild LLQ tenderness) Extremities: No Clubbing, No Cyanosis, No Edema Neuro: Other (generalized weakness) Psych/Mental Status: Other (slow reactions/cognitive delays) Discharge Home Medications Reviewed and agree with Discharge Medication list on patient's Discharge Instruction sheet Instructions to Patient/Family Please see electronic discharge instructions given to patient. Clinical Quality Measures DVT/VTE Risk/Contraindication: Risk Factor Score Per Nursin RFS Level Per Nursing on Admit: 4+=Very High MARIANELA GOMEZ DO Sep 26, 2018 13:16
== END 2018-09-26 11:28 | disposition swing bed (61) | DRG 101 ==
LOC: 4TH 14:44
PROVIDERS: ADMIT Family Medicine; ATTEND Family Medicine
DX: R56.9 Unspecified convulsions (principal); N39.0 Urinary tract infection, site not specified; B96.4 Proteus (mirabilis) (morganii) as the cause of diseases classified elsewhere; F03.91 Unspecified dementia, unspecified severity, with behavioral disturbance; R29.6 Repeated falls; E78.00 Pure hypercholesterolemia, unspecified; I10 Essential (primary) hypertension; K21.9 Gastro-esophageal reflux disease without esophagitis; Z66 Do not resuscitate; R63.0 Anorexia; K59.09 Other constipation; R33.9 Retention of urine, unspecified; F41.9 Anxiety disorder, unspecified; F32.9 Major depressive disorder, single episode, unspecified; R63.4 Abnormal weight loss; R53.81 Other malaise; Z87.891 Personal history of nicotine dependence; Z86.718 Personal history of other venous thrombosis and embolism; Z79.01 Long term (current) use of anticoagulants; Z87.19 Personal history of other diseases of the digestive system; Z91.5 Personal history of self-harm
CPT/HCPCS: 36415; 70450; 74018; 80053; 80164; 81000; 83735; 84443; 85025; 87077; 87088; 87186

== ENCOUNTER 2018-09-26 11:20 | Inpatient (IN) | payer MEDICARE, OTHER ==
[~2018-09-26] VITALS: Ht 177.8 cm; Wt 82.4 kg
[~2018-09-26 11:20] MED LIST changes: +ACET-2267 PO; +ALPR0.254 PO; +AMLO5TAB9 PO; +ARIP10TA17 PO; +CALC-823 PO; +CALC3.8S NS; +CFTR1V IM; +CHOL10007 PO; +DIVA-76 PO; +DIVA125T32 PO; +DOCU-143 PO; +FLUO40CA PO; +IPRA3AMP31 NEB; +LACT20SO2 PO; +LORA0.5T PO; +PANT40TA2 PO; +POLY17PO6 PO; +QUET100T69 PO; +SIMV10TA3 PO; +TRIH5TAB2 PO
[2018-09-26] MEDS ORDERED: PATIENT MAY USE OWN MEDS, ALL PO SCH (11:30)
[2018-09-26] MEDS ORDERED: ONDANSETRON 4 MG/2 ML (SDV) Z0FRAN IV PRN (11:30)
[2018-09-26] MEDS ORDERED: LORazepam INJ 2 MG/ML (ATIVAN) VIAL IVP PRN (11:30)
[2018-09-26] MEDS ORDERED: POLYETHYLENE GLYCOL 17 GM (MIRALAX) PACK PO PRN (11:30)
--- NOTE | 2018-09-26 12:03 | Physical Therapy Evaluation ---
PT Evaluation-General Medical Diagnosis Admission Date 09/26/2018 Medical Diagnosis: UTI, seizures Onset Date: Sep 26, 2018 Therapy Diagnosis Therapy Diagnosis: weakness Height/Weight Height (Feet): 5 Height (Inches): 10.00 Weight (Pounds): 185 Weight (Ounces): 0.0 Precautions Precautions/Isolations: Standard Precautions Referral Physician: Bill Reason for Referral: Evaluation/Treatment Medical History Pertinent Medical History: COPD, Dementia, HTN Additional Medical History seizures, dementia Current History Pt has been on acute for noted seizure disorder, UTI and frequent falls. She has transferred to [facility] due to need for continued medical care and therapeutic intervention. Reviewed History: Yes Social History Home: Assisted Living Prior/Core FIM Prior Level of Function Therapy Code Descriptions/Definitions Functional [place] Measure: 0=Not Assessed/NA 4=Minimal Assistance 1=Total Assistance 5=Supervision or Setup 2=Maximal Assistance 6=Modified [place] 3=Moderate Assistance 7=Complete [place] Therapy Quality Codes: 6 Independent with activity with or without an assistive device 5 Patient requires set up or clean up by helper. Patient completes activity by themselves 4 Supervision or touching assist (CGA). [place] provide cues , steadying assist 3 The helper provides less than half the effort to complete the activity 2 The helper provides more than half the effort to complete the activity 1 Dependent. The helper does all the effort to complete an activity 7 Patient refused to complete or attempt activity 9 The patient did not perform the activity before the current illness or injury 88 Not attempted due to Medical conditions or safety concerns Functional Abilities and Goals: Independent: Patient completed the activities by him/herself, with or without an assistive device, with no assistance from a helper. Needed Some Help: Patient needed partial assistance from another person to complete activities. Dependent: A helper completed the activities for the patient. Unknown: Not Applicable: Pt is a poor historian but pt is well known to the nurse tech caring for her today, he reports she is typically able to mobilize around [place] and can typically feed herself. She likes to smoke and watch game shows. PT Evaluation-Current Subjective Pt only mumbles; no conversation with limited eye contact but eyes are open. Pt is not resistant to getting up. Objective Patient Orientation: Unable to Assess Problem Solving: Poor Attachments: IV ROM/Strength ROM Lower Extremities WFL Strenght Lower Extremities unable to assess Integumentary/Posture Integumentary Refer to nursing assessment Bowel Incontinence: Yes Bladder Incontinence: Yes Posture Unable to fully asses as pt has poor muscle tone and does not maintain posture very well; however, it appears to be symmetrical without any particular abnormalities other than rounded shoulders. Neuromuscular (Tone, Coordination, Reflexes) Decreased functional tone; pt is not fully limp but not fully upright either. Seems to be very lethargic. Transfers Therapy Code Descriptions/Definitions Functional [place] Measure: 0=Not Assessed/NA 4=Minimal Assistance 1=Total Assistance 5=Supervision or Setup 2=Maximal Assistance 6=Modified [place] 3=Moderate Assistance 7=Complete [place] Therapy Quality Codes: 6 Independent with activity with or without an assistive device 5 Patient requires set up or clean up by helper. Patient completes activity by themselves 4 Supervision or touching assist (CGA). [place] provide cues , steadying assist 3 The helper provides less than half the effort to complete the activity 2 The helper provides more than half the effort to complete the activity 1 Dependent. The helper does all the effort to complete an activity 7 Patient refused to complete or attempt activity 9 The patient did not perform the activity before the current illness or injury 88 Not attempted due to Medical conditions or safety concerns Transfers (B, C, W/C) (FIM): 1 Roll Left to Right (QC): 1 Sit to Lying (QC): 1 Lying to Sitting/Side of Bed(Q: 1 Sit to Stand (QC): 1 Chair/Lzp-sz-Qossu Xfer(QC): 1 Car Transfer (QC): 88 assist of 2 staff to perform bed mobility and to transfer sit to from supine; assist of 2 to SPT bed to chair with limited WB with transfer with pt not in full hip and knee extension. Pt with limited muscle tone and unable to effectively follow cues or participate with mobility. Pt up in chair with legs elevated, chair reclined somewhat and pillow support on her right with chair alarm activated. Nursing and nurse tech aware that patient is up in the chair and they were present and assisted with the transfer. Gait Does the Patient Walk?: No and Walking Goal IS indicated Mode of Locomotion: Walk Anticipated Mode of Locomotion: Walk Comments/Gait Description Pt unable to stand at this time. Unable to walk Balance Sitting Static: Poor Sitting Dynamic: Poor Treatment Pt incont of bowel rolling in bed with dependent assist (pt resistant at times) to rolling to clean her edd area; transferred to EOB and then transferred to chair. Assessment/Needs Pt presents with a PLOF of high functional mobility and abiolity to transfer and walk without assist. She currently is dependent for all mobility and essentially ineffective in task completion, possible due to seizures and current medication. Pt will benefit from skilled PT to addres mobility and promote transfers and gait as she was able to perform very recently. It is important for her to maintain acitivty to reduce risk of further decline and promote initiation of tasks. Rehab Potential: Guarded PT Shoe Salesperson Goals Shoe Salesperson Goals PT Penitentiary Goals Time Frame: Oct 03, 2018 Transfers (B,C,W/C) (FIM): 4 Sit to Lying (QC): 4 Lying-Sitting on Side/Bed(QC): 4 Sit to Stand (QC): 4 Roll Left to Right (QC): 4 Chair/Nxj-me-Mkiqj Xfer(QC): 4 Car Transfer (QC): 4 Gait (FIM): 4 Walk 10 feet (QC): 4 Walk 10ft-Uneven Surface(QC): 4 Walk 50ft with 2 Turns (QC): 4 Walk 150 ft (QC): 4 PT Plan Problem List Problem List: Activity Tolerance, Functional Strength, Safety, Balance, Gait, Transfer, Bed Mobility Treatment/Plan Treatment Plan: Continue Plan of Care Treatment Plan: Bed Mobility, Education, Functional Activity Flynn, Functional Strength, Therapeutic Exercise, Transfers Treatment Duration: Oct 03, 2018 Frequency: 6 times per week Estimated Hrs Per Day: .25 hour per day (to .5) Patient and/or Family Agrees t: Yes Safety Risks/Education Patient Education: Safety Issues Teaching Recipient: Patient Response to Teaching: Reinforcement Needed Time/GCodes Time In: 1145 Time Out: 1210 Total Billed Treatment Time: 25 Total Billed Treatment visit EVM 10 FA 15 DAWN SMITH PT Sep 26, 2018 12:03
[2018-09-26] MEDS ORDERED: CATHETER FLUSH 10 ML SYR IV PRN (12:15)
--- NOTE | 2018-09-26 12:33 | NUR ---
Admission Drug Regimen Review Completed: Date: 09/26/18 Time: 1234 Physician Notified: MARIANELA GOMEZ DO Date: 09/26/18 Time: 1234 Issue Identified; Action Plan to Resolve and Any Action Taken:[facility] did not recognize the medication Artane and discontinued it incorrectly. [facility] completed the medication reconciliation. Artane 2.5mg PO at 0800,1200 put back into the swing bed account. Protonix compound also not recognized by [facility] put back into the swing bed account. Dr. Gomez adjusted the patient's normal saline to be at 75cc/hr. No further changes noted.
--- OUTSIDE RECORDS SUMMARY | 2018-09-26 12:48 | XMS REPORT ---
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 212051996 Problem Cognitive dysfunction F09 Active 221038155 Problem Major depression F32.9 Active 379813143 Problem Anxiety disorder, unspecified F41.9 Active [id number] ALLERGIES No Information ENCOUNTERS Encounter Location Date Diagnosis [place] [address] [address] Jun, [facility] [address], [place] [address] Jun, [facility] [id number] [place] [address]- 2142 Jun, Acute deep vein thrombosis (DVT) of popliteal vein, unspecified laterality I82.439 [facility] [address], [place] [address] Jun, [facility] [address], [place] [address] Jun, [facility] [address], [place] [address] Jun, [facility] [id number] [place] [address]159[address] 6866 May, [employer] [address] [place] [address] May, Major depression F32.9 [place] [id number], [place] [address] May, Mood disorder F39 [facility] [id number] [place] [address] 7[address]- 5704 Apr, Mood disorder F39 [facility] [address] [place] [address] Mar, Weight loss R63.4 and Dementia associated with other underlying disease without behavioral disturbance F02.80 [facility] [address] [place] [address] Mar, [facility] [address] [address] Mar, Mood disorder F39 [facility] [id number] [place] [address] 71999- 3349 Mar, [facility] [address], [place] [address] 280[address] Jan, Mood disorder F39 and Dementia associated with other underlying disease without behavioral disturbance F02.80 [facility] [id number] [id number] Jan, Dental examination Z01.20 [facility] [address] [place] [address] Jan, Dementia F03.90 ; Mood disorder F39 ; Cognitive dysfunction F09 ; Hypertension, benign I10 ; Hypokalemia E87.6 and History of DVT of lower extremity Z86.718 [facility] [id number] [address] Jan, Anxiety disorder, unspecified F41.9 and Mood disorder F39 [facility] [address], [place] [address] Jan, Mood disorder F39 and Dementia associated with other underlying disease without behavioral disturbance F02.80 [facility] [id number], [place] [address] 5[address] Dec, Mood disorder F39 [facility] [address], [place] [address] 9[address] Dec, Mood disorder F39 [facility] [id number] [place] [address] 53110- 5892 Nov, [place] [id number] [place] [address]60- 9755 Nov, Dementia without behavioral disturbance, unspecified dementia type F03.90 ; Cognitive dysfunction F09 and Major depression F32.9 [facility] [address] [place] [address] October, Encounter for examination for admission to custodial Z02.2 ; Tardive dyskinesia G24.01 ; Major depression F32.9 ; Anxiety disorder, unspecified F41.9 ; Cognitive dysfunction F09 and Dementia without behavioral disturbance, unspecified dementia type F03.90 [place] [address], [place] [address] October, [place] [id number] [place] [address]- 3504 October, [facility] [id number] [place] [address] 77727- 2732 Sep, Acute deep vein thrombosis (DVT) of proximal vein of left lower extremity I82.4Y2 [place] [address], [place] [address] Sep, Mood disorder F39 and Dementia associated with other underlying disease without behavioral disturbance F02.80 [facility] [id number] [place] [address] 37143- 2036 Sep, Mood disorder F39 and Acute deep vein thrombosis (DVT) of proximal vein of left lower extremity I82.4Y2 [place] [id number] [place] [address] 17205- 7552 Sep, [facility] [employer] [place] [employer] [address] [place] [id number] Sep, History of DVT (deep vein thrombosis) Z86.718 and Dementia F03.90 [place] [address], [place] [address] Sep, Mood disorder F39 and Dementia without behavioral disturbance, unspecified dementia type F03.90 [facility] [address], [place] [address] 17[address] Aug, [facility] [address], [place] [address] 7[address] Aug, [facility] [id number] [place] [id number] Aug, [facility] [address], [place] [address] 1530 Aug, [facility] [address], [place] [address] 3[address] Aug, Acute deep vein thrombosis (DVT) of proximal vein of left lower extremity I82.4Y2 [facility] [employer] [address] [place] [id number] Aug, Left leg swelling M79.89 [facility] [address], [place] [address] Aug, Mood disorder F39 and Dementia without behavioral disturbance, unspecified dementia type F03.90 [facility] [address], [place] [address] 4647 Jul, [facility] [address], [place] [address] 56[address] Jul, Dementia without behavioral disturbance, unspecified dementia type F03.90 and Mood disorder F39 [facility] [employer] [facility] [address] [place] [id number] Jul, Encounter for examination for admission to custodial Z02.2 ; Rectal bleed K62.5 ; Dementia without behavioral disturbance, unspecified dementia type F03.90 ; Hypertension, benign I10 ; Edema R60.9 and Major depression F32.9 [facility] [id number] [address] Jul, [facility] [address], [place] [address]- 5155 Apr, Dementia without behavioral disturbance, unspecified dementia type F03.90 and Mood disorder F39 [facility] [address], [place] [address]- 9[address] Apr, [facility] [address], [place] [address] 89[address] Feb, Hypertension, benign I10 [facility] [id number] [place] [address] 97505- 0244 Dec, Major depression F32.9 ; Anxiety disorder, unspecified F41.9 ; Cognitive dysfunction F09 and Dementia without behavioral disturbance, unspecified dementia type F03.90 [facility] [address], [place] [address] 93[address] October, Hypertension, benign I10 [facility] [address], [place] [address]- 4325 Sep, Major depression F32.9 ; Anxiety disorder, unspecified F41.9 and Cognitive dysfunction F09 [facility] [address], [place] [address]- 8984 Apr, Major depression F32.9 and Cognitive dysfunction F09 [facility] [address], [place] [address]- 8274 Jan, Anxiety disorder, unspecified F41.9 ; Major depression F32.9 and Cognitive dysfunction F09 [facility] [address], [place] [address]- 9514 Jan, [facility] [id number] [place] [address] 53169- 2266 Dec, [facility] [address], [place] [address]- 7642 Dec, [facility] [address], [place] [address]- 4913 Nov, Anxiety disorder, unspecified F41.9 ; Major depression F32.9 and Cognitive dysfunction F09 [facility] [id number] [place] [address] 51859- 6818 October, Dementia without behavioral disturbance, unspecified dementia type F03.90 [facility] [id number] [place] [address] 84996- 9268 Sep, Cognitive dysfunction F09 and Edema R60.9 [place] [id number] [place] [address] 99133- 6392 Sep, Cognitive dysfunction F09 and Edema R60.9 [place] [address] [address]- [address]60 Aug, Self-care deficit for medication administration R41.89 ; Self-care deficit in patient living alone R46.89 and Cognitive dysfunction F09 [place] [address] [address]507- 0351 Aug, 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 and Unspecified intracranial injury without loss of consciousness, sequela S06.9X0S [place] [id number] [place] [address] 85213- 5381 Jul, [place] [id number] [place] [address] 39124- 3714 Jun, Anxiety disorder, unspecified F41.9 and Major depression F32.9 [place] [id number] [place] [address] 26883- 8609 Jun, [place] [id number] [place] [address] 30219- 4868 May, [place] [id number] [place] [address] 01539- 3142 May, Nausea R11.0 [place] [id number] [place] [address] 74800- 0043 Apr, [place] [address] [place] [address]- 2282 Mar, Major depression F32.9 [facility] [id number] [place] [address] 28745- 4865 Mar, Encounter for immunization Z23 [facility] [id number] [place] [address] 21393- 5425 Mar, Major depression F32.9 and Anxiety disorder, unspecified F41.9 [facility] [address] 49466- 9726 Dec, Major depression, chronic 296.20 and Anxiety disorder, unspecified 300.00 [facility] [address] 31653- 7004 October, Hypertension 401.9 [facility] [id number] [place] [address] 45250- 5296 Sep, [facility] [id number] [place] [address] 85097- 1279 Sep, [facility] [id number] [place] [address] 89047- 8350 Jul, [facility] [id number] [place] [address] 07081- 3159 Jul, [facility] [id number] [place] [address] 24845- 7053 Jul, [facility] [id number] [place] [address] 10503- 3070 May, [facility] [id number] [place] [address] 87343- 1998 May, [facility] [id number] [place] [address] 37260- 6519 May, [facility] [id number] [place] [address] 42869- 1124 May, [facility] [id number] [place] [address], [place] [address]- 9146 Apr, [facility] [place] [facility] [address] [id number] [place] [address]- 6112 Apr, [facility] [place] [facility] [address] [id number] [place] [address]- 5620 Feb, [facility] [place] [facility] [address] [id number] [place] [address]- 3791 Feb, [facility] [place] [facility] [address] [id number] [place] [address]- 6290 Jan, [facility] [place] [facility] [address] [id number] [place] [address]- 5985 Jan, [facility] [place] [facility] [address] [id number] [place] [address]- 8407 Jan, [facility] [place] [facility] [address] [id number] [place] [address]- 4833 Jan, [facility] [place] [facility] [address] [id number] [place] [address]- 0264 Dec, [facility] [place] [facility] [address] [id number] [place] [address]- 0299 Dec, [facility] [place] [facility] [address] [id number] [place] [address]- 0737 Nov, [facility] [place] [facility] [address] [id number] [place] [address]- 0213 Nov, [facility] [place] [facility] [address] [id number] [place] [address]- 2799 Nov, [facility] [place] [facility] [address] [id number] [place] [address]- 8621 Nov, [facility] [place] [facility] [address] [id number] [place] [address]- 6208 October, [facility] [place] [facility] [address] [id number] [place] [address]- 2520 October, [facility] [place] [facility] [address] [id number] [place] [address]- 8523 Sep, [facility] [place] [facility] [address] [id number] [place] [address]- 0351 Sep, [facility] [place] [facility] [address] [id number] [place] [address]- 9779 Sep, [facility] [place] [facility] [address] [id number] [place] [address]- 7833 Sep, [facility] [place] [facility] [address] [id number] [place] [address]- 2437 Sep, [facility] [place] [facility] [address] [id number] [place] [address]- 5005 Sep, [facility] [place] [facility] [address] [id number] [place] [address]- 3746 Aug, [facility] [place] [facility] [address] [id number] [place] [address]- 6536 Aug, [facility] [place] [facility] [address] [id number] [place] [address]- 1885 Jul, [facility] [place] [facility] [address] [id number] [place] [address]- 9116 Jul, [facility] [place] [facility] [address] [id number] [place] [address]- 9945 May, [facility] [place] [facility] [address] [id number] [place] [address]- 0010 May, [facility] [place] [facility] [address] [id number] [place] [address]- 3312 May, [facility] [place] [facility] [address] [id number] [place] [address]- 5684 May, [facility] [place] [facility] [address] [id number] [place] [address]- 0633 May, [facility] [place] [facility] [address] [id number] [place] [address]- 2546 May, [facility] [place] [facility] [address] [id number] [place] [address]- 1375 Apr, [facility] [place] [facility] [address] [id number] [place] [address]- 5126 Apr, [facility] [place] [facility] [address] [id number] [place] [address]- 8026 Apr, [facility] [place] [facility] [address] [id number] [place] [address]- 3755 Apr, [facility] [place] [facility] [address] [id number] [place] [address]- 9876 Apr, [facility] [place] [facility] [address] [id number] [place] [address]78 Apr, [facility] [place] [facility] [address] [id number] [place] [address]993 Feb, [facility] [place] [facility] [address] [id number] [place] [address]- 5505 Feb, [facility] [place] [facility] [address] [id number] [place] [address]- 1366 Feb, [facility] [place] [facility] [address] [id number] [place] [address]- 6535 Feb, [facility] [place] [facility] [address] [id number] [place]333 Jan, [facility] [place] [facility] [address] [id number] [place] [address]- 5981 Dec, [facility] [place] [facility] [address] [id number] [place] [address]- 3308 Dec, [facility] [place] [facility] [address] [id number] [place] [address]- 8455 Dec, [facility] [place] [facility] [address] [id number] [place] [address]- 6437 Dec, [facility] [place] [facility] [address] [id number] [place] [address] 2546 Nov, [facility] [address] [id number] [place] [address]- 0826 Nov, [facility] [address] [id number] [place] [address] 2546 October, [facility] [address] [id number] [place] [address]- 5056 October, [facility] [address] [id number] [place] [address]- 5936 October, [facility] [address] [id number] [place] [address]- 4636 October, [facility] [address] [id number] [place] [address]- 2126 Sep, [facility] [address] [id number] [place] [address]- 9086 Aug, [facility] [address] [id number] [place] [address]- 3537 Aug, [facility] [address] [id number] [place] [address]- 4836 Aug, [facility] [address] [id number] [place] [address] 2546 Aug, [facility] [address] [id number] [place] [address]- 2546 Jul, [facility] [address] [id number] [place] [address]- 2546 Jul, [facility] [address] [id number] [place] [address]- 9456 Jul, [facility] [address] [id number] [place] [address]- 2546 Jun, [facility] [address] [id number] [place] [address]- 0601 Jun, [facility] [place] [facility] [address] [id number] [place] [address]- 6274 May, [facility] [place] [facility] [address] [id number] [place] [address]- 2047 May, [facility] [place] [facility] [address] [id number] [place] [address]- 8854 Apr, [facility] [place] [facility] [address] [id number] [place] [address]- 6628 Apr, [facility] [place] [facility] [address] [id number] [place] [address]- 9814 Apr, [facility] [place] [facility] [address] [id number] [place] [address]- 7245 Apr, [facility] [place] [facility] [address] [id number] [place] [address]- 3693 Apr, [facility] [place] [facility] [address] [id number], [place] [address]- 2946 Apr, [facility] [place] [facility] [address] [id number] [place] [address]- 2755 Mar, [facility] [place] [facility] [address] [id number], [place] [address]- 6799 Mar, [facility] [place] [facility] [address] [id number], [place] [address]- 6077 Mar, [facility] [place] [facility] [address] [id number], [place] [address]- 6891 Mar, [facility] [place] [facility] [address] [id number] [place] [address]- 3414 Mar, [facility] [place] [facility] [address] [id number], [place] [address]- 2528 Mar, [facility] [place] [facility] [address] [facility] [id number], [place] [address]- 6810 Mar, [facility] [place] [facility] [address] [id number] [place] [address]- 6955 18 Feb, 2012 [facility] [address] [id number] [place] [address]- 3246 04 Feb, 2012 [facility] [place] [facility] [address] [id number] [place] [address]- 2766 03 Jan, 2012 [facility] [place] [facility] [address] [id number] [place] [address]- 4526 24 Dec, 2011 [facility] [place] [facility] [address] [id number] [place] [address]- 9545 Dec, [facility] [place] [facility] [address] [id number] [place] [address]- 1929 Nov, [facility] [place] [facility] [address] [id number] [place] [address]- 9032 Nov, [facility] [address] [id number] [place] [address]- 2711 Nov, [facility] [place] [facility] [address] [id number] [place] [address]- 2012 October, [facility] [place] [facility] [address] [id number] [place] [address]- 6370 Sep, [facility] [place] [facility] [address] [id number] [place] [address]- 2961 16 Sep, 2011 [facility] [place] [facility] [address] [id number] [place] [address]- 5773 04 Sep, 2011 [facility] [place] [facility] [address] [id number] [place] [address]- 2896 Aug, [facility] [place] [facility] [address] [id number] [place] [address]- 0933 Aug, [facility] [place] [facility] [address] [id number] [place] [address] Aug, [facility] [place] [facility] [address] [id number] [place] [address]- 4201 15 Aug, 2011 [facility] [place] [facility] [address] [id number] [place] [address]- 9744 14 Aug, 2011 [facility] [place] [facility] [address] [id number] [place] [address]- 5796 12 Aug, 2011 [facility] [place] [facility] [address] [id number] [place] [address]- 9908 08 Aug, 2011 [facility] [place] [facility] [address] [id number] [place] [address] 05 Aug, 2011 [facility] [place] [facility] [address] [id number] [place] [address] 27 Jul, 2011 [facility] [place] [facility] [address] [id number] [place] [address] 22 Jul, 2011 [facility] [place] [facility] [address] [id number] [place] [address] 20 Jul, 2011 [facility] [place] [facility] [address] [id number] [place] [address] 15 Jul, 2011 [facility] [place] [facility] [address] [id number] [place] [address] 06 Jul, 2011 [facility] [place] [facility] [address] [id number] [place] [address] Jul, [facility] [place] [facility] [address] [id number] [place] [address] Jun, [facility] [place] [facility] [address] [id number] [place] [address] Jun, [facility] [place] [facility] [address] [id number] [place] [address] Jun, [facility] [place] [facility] [address] [id number] [place] [address] Jun, [facility] [place] [facility] [address] [id number] [place] [address] May, [facility] [place] [facility] [address] [id number] [place] [address] 28 May, 2011 [facility] [address] [id number] [place] [address] May, [facility] [place] [facility] [address] [id number] [place] [address] 12 May, 2011 [facility] [place] [facility] [address] [id number] [place] 03 May, 2011 [facility] [place] [facility] [address] [id number] [place] [address] 30 Apr, 2011 [facility] [place] [facility] [address] [id number] [place] [address] 14 Apr, 2011 [facility] [place] [facility] [address] [id number] [place] [address] 31 Mar, 2011 [facility] [address] [id number] [place] [address] 15 Feb, 2011 [facility] [place] [facility] [address] [id number] [place] [address] 12 Feb, 2011 [facility] [place] [facility] [address] [id number] [place] [address] May, [facility] [place] [facility] [address] [id number] [place] [address] 23 Apr, 2010 [facility] [place] [facility] [address] [id number] [place] [address] 15 Apr, 2010 [facility] [place] [facility] [address] [id number], [place] [address] 15 Apr, 2010 [facility] [place] [facility] [address] [id number] [place] [address] 15 Apr, 2010 [facility] [place] [facility] [address] [id number] [place] [address] 02 Apr, 2010 [facility] [place] [facility] [address] [id number], [place] [address] Apr, [facility] [place] [facility] [address] [facility] [id number] [place] [address] Mar, [facility] [address] [facility] [id number] [place] [address] Mar, [facility] [address] [facility] [id number] [place] [address] Sep, IMMUNIZATIONS No Known Immunizations SOCIAL HISTORY Never Assessed REASON FOR VISIT [facility] [place] PLAN OF CARE VITAL SIGNS MEDICATIONS Unknown [...] attempts Hospitalization History Ischemic colitis, dementia, generalized debility-[facility] 07/30/17
--- NOTE | 2018-09-26 13:00 | NUR ---
JORGE STEVENS admitted to swing bed status to room 423-1, with an admitting diagnosis of SWB uncontrollable seizures, on 09/26/18 from acute inpatient status. Physical therapy to evaluate patient for activity needs. JORGE STEVENS and/or family introduced to surroundings, call light, bed controls, phone, TV, temperature control, lights, meal times, smoking policy, visitor policy, side rail policy, bathrooms, and showers. Patient rights given to patient in the handbook.. JORGE STEVENS and/or family member verbalized understanding that [facility] is not responsible for the loss or damage to any personal effects or valuables that are kept in the patients possession during their hospitalization. The following care plans were discussed with JORGE STEVENS: Discharge Plannning. JORGE STEVENS and/or family verbalizes understanding of the Interdisciplinary Patient Education. Call light with in reach and patient demonstrates understanding of how to use. JORGE STEVENS reports no further needs at this time.
--- OUTSIDE RECORDS SUMMARY | 2018-09-26 13:06 | XMS REPORT | Continuity of Care Document ---
[...] K 311 MO DEPRESS NOS 05/20/2009 MERLYN UCRRAN, ARTI K 300.00 AN ANXIETY UNSPEC 05/20/2009 [...] APRN 311 MO DEPRESS NOS 05/20/2009 [facility], DEANA M 300.00 AN ANXIETY UNSPEC 05/20/2009 [facility] DEANA M 303.90 SA ALCOHOL DEPENDENCE 05/20/2009 [facility] DEANA M 307.47 SI DYSSOMNIA NOS 05/20/2009 [facility], DEANA M 311 MO DEPRESS NOS 05/20/2009 [facility] DEANA M 300.00 AN ANXIETY UNSPEC 05/20/2009 [facility] DEANA M 303.90 SA ALCOHOL DEPENDENCE 05/20/2009 [facility] DEANA M 307.47 SI DYSSOMNIA NOS 05/20/2009 [facility], DEANA M 311 MO DEPRESS NOS 05/24/2009 [...] 298.8 P BRIEF PSYCHOTIC DISORDER 05/24/2009 [facility], DEANA M 298.8 P BRIEF PSYCHOTIC DISORDER 05/24/2009 [facility], DEANA M 298.8 P BRIEF PSYCHOTIC DISORDER 07/13/2009 MORENA MONTENEGRO APRN 466.0 BRONCHITIS, ACUTE 07/13/2009 MORENA MONTENEGRO APRN V58.69 LONG-TERM (CURRENT) USE OF OTHER MEDICATIONS 07/13/2009 TRENT STORM DO F 466.0 BRONCHITIS, ACUTE 07/13/2009 TERNT STORM DO F V58.69 LONG-TERM (CURRENT) USE [...] 296.80 MO BIPOLAR NOS 10/20/2009 ZULETA DO, RATI K 296.80 MO BIPOLAR NOS 10/20/2009 ZULETA DO, ARTI K 296.80 MO BIPOLAR NOS 10/20/2009 ZULETA DO, ARTI K 296.80 MO BIPOLAR NOS 10/20/2009 BOBO PEREYRA, DANIEL FARIA 296.80 MO BIPOLAR NOS 10/20/2009 MORENA MONTENEGRO APRN 296.80 MO BIPOLAR NOS 10/20/2009 BROUSSARD RODDY, DANIEL FARIA 296.80 MO BIPOLAR NOS 10/20/2009 [facility] DEANA M 296.80 MO BIPOLAR NOS 10/20/2009 [facility] DEANA M 296.80 MO BIPOLAR NOS 03/07/2010 [...] MD NODX NO DIAGNOSIS 03/07/2010 ZULETA DO, RATI K 401.1 HYPERTENSION, BENIGN ESSENTIAL 03/07/2010 ZULETA DO, ARTI K NODX NO DIAGNOSIS 03/07/2010 ZULETA DO, ARTI K 401.1 HYPERTENSION, BENIGN ESSENTIAL 03/07/2010 ZULETA DO, ARTI K NODX NO DIAGNOSIS 03/07/2010 ZULETA DO, RATI K 401.1 HYPERTENSION, BENIGN ESSENTIAL 03/07/2010 ZULETA DO, ARTI K NODX NO DIAGNOSIS 03/07/2010 BROUSSARD ONLINE FACILITATOR, DANIEL FARIA 401.1 HYPERTENSION, BENIGN ESSENTIAL 03/07/2010 BROUSSARD ONLINE FACILITATOR, DANIEL FARIA NODX NO DIAGNOSIS 03/07/2010 MONI MITCHELLN, MORENA T 401.1 HYPERTENSION, BENIGN ESSENTIAL 03/07/2010 MONI ONLINE FACILITATOR, MORENA T NODX NO DIAGNOSIS 03/07/2010 BROUSSARD ONLINE FACILITATOR, DANIEL FARIA 401.1 HYPERTENSION, BENIGN ESSENTIAL 03/07/2010 BROUSSARD ONLINE FACILITATOR, DANIEL FARIA NODX NO DIAGNOSIS 03/07/2010 [facility], DEANA M 401.1 HYPERTENSION, BENIGN ESSENTIAL 03/07/2010 [facility], DEANA M NODX NO DIAGNOSIS 03/07/2010 [facility], DEANA M 401.1 HYPERTENSION, BENIGN ESSENTIAL 03/07/2010 [facility], DEANA M NODX NO DIAGNOSIS 03/14/2010 MORENA [...] ARTI K 486 PNEUMONIA UNSPECIFIED 03/14/2010 BROUSSARD ONLINE FACILITATOR, DANIEL FARIA 486 PNEUMONIA UNSPECIFIED 03/14/2010 MORENA MONTENEGRO APRN 486 PNEUMONIA UNSPECIFIED 03/14/2010 BOBO ONLINE FACILITATOR, DANIEL FARIA 486 PNEUMONIA UNSPECIFIED 03/14/2010 [facility], DEANA M 486 PNEUMONIA UNSPECIFIED 03/14/2010 [facility], DEANA M 486 PNEUMONIA UNSPECIFIED 04/24/2010 MORENA [...] APRN T 272.0 HYPERCHOLESTEROLEMIA PURE 04/24/2010 BROUSSARD ONLINE FACILITATOR, DANIEL RADERH 272.0 HYPERCHOLESTEROLEMIA PURE 04/24/2010 ROSI [...] APRN 465.9 UPPER RESPIRATORY INFECTION 05/12/2011 [facility], DEANA M 465.9 UPPER RESPIRATORY INFECTION 05/12/2011 [facility], DEANA M 465.9 UPPER RESPIRATORY INFECTION 05/30/2011 [...] MONTENEGRO APRN 535.50 Gastritis Unspec 07/25/2011 DANIEL RBOUSSARD APRN 535.50 Gastritis Unspec 07/25/2011 DEANA LEWIS [...] BROUSSARD APRN 380.4 Impacted Cerumen 08/28/2011 [facility], DEANA M 380.4 Impacted Cerumen 08/28/2011 [facility], DEANA M 380.4 Impacted Cerumen 04/21/2012 MORENA [...] DANIEL BIENVENIDO 462 ACUTE PHARYNGITIS 06/04/2013 BROUSSARD ONLINE FACILITATOR, DANIEL BIENVENIDO 786.2 COUGH 06/04/2013 DEANA LEWIS [...] Procedures Code [place] [address] ROUTINE VENIPUNCTURE 08/25/2012 20814 CBC 08/25/2012 87713 LIPID PANEL 08/25/2012 35706 CMP 08/25/2012 [id number] GFR CALC (RESULT ONLY) 08/25/2012 50693 GLUCOSE FINGER STICK 12/09/2012 83197 ROUTINE VENIPUNCTURE 05/13/2013 50316 CMP 05/13/2013 17545 ROUTINE VENIPUNCTURE 10/01/2013 74928 CBC 10/01/2013 05015 CMP 10/01/2013 82595 LIPID PANEL 10/01/2013 [id number] GFR CALC (RESULT ONLY) 10/01/2013 58360 TSH 10/01/2013 26250 OXIMETRY 10/02/2013 Results There is no data. Encounters ACCT No. Visit Date/Time Discharge Status Pt. Type Provider Facility Loc./Unit Complaint [id number] 09/10/2014 09:56:00 09/10/2014 23:59:59 CLS Outpatient DEANA LEWIS [id number] 09/10/2014 09:56:00 09/10/2014 23:59:59 CLS Outpatient DEANA LEWIS [id number] 03/09/2014 10:44:00 03/09/2014 23:59:59 CLS Outpatient DANIEL BROUSSARD APRN [id number] 02/01/2014 11:46:00 02/01/2014 23:59:59 CLS Outpatient MORENA MONTENEGRO APRN [id number] 12/07/2013 13:57:00 12/07/2013 23:59:59 CLS Outpatient BROUSSARDDANIEL REYNA APRN [id number] 10/02/2013 12:18:00 10/02/2013 23:59:59 CLS Outpatient ARTI ZULETA DO [id number] 06/04/2013 10:41:00 06/04/2013 23:59:59 CLS Outpatient ARTI ZULETA DO [id number] 05/13/2013 13:57:00 05/13/2013 23:59:59 CLS Outpatient ARTI ZULETA DO [id number] 04/29/2013 16:02:00 04/29/2013 23:59:59 CLS Outpatient ARUN VEGA MD [id number] 03/02/2013 15:54:00 03/02/2013 23:59:59 CLS Outpatient ARTI ZULETA DO Danial [id number] 02/25/2013 15:30:00 02/25/2013 23:59:59 CLS Outpatient EVELYN ZULETA DORamón [place] [id number] 08/27/2012 15:21:00 08/27/2012 23:59:59 CLS Outpatient TRENT STORM DO [id number] 08/25/2012 08:40:00 08/25/2012 23:59:59 CLS Outpatient MORENA MONTENEGRO APRN [id number] 08/13/2012 09:20:00 08/13/2012 23:59:59 CLS Outpatient [id number] 07/29/2012 15:28:00 07/29/2012 23:59:59 CLS Outpatient TRENT STORM DO [id number] 05/14/2012 15:43:00 05/14/2012 23:59:59 CLS Outpatient MORENA MONTENEGRO APRN [id number] 03/12/2012 15:26:00 03/12/2012 23:59:59 CLS Outpatient MORENA MONTENEGRO APRN [id number] 12/09/2012 07:43:00 Document Registration [id number] 11/10/2012 14:37:00 Document Registration [id number] 09/16/2018 13:34:26 09/16/2018 23:59:59 CLS Outpatient
--- NOTE | 2018-09-26 14:13 | ST Dysphagia Evaluation ---
Speech Evaluation-General Medical Diagnosis UTI, seizures Onset Date: Sep 26, 2018 Therapy Diagnosis Therapy Diagnosis: Orophayngeal Dysphagia Precautions Precautions: Aspiration Precautions/Isolations: Standard Precautions Referral Referring Physician: Dr. Khan Medical History Pertinent Medical History: COPD, Dementia, HTN Reviewed History: Yes Social History Home: Residential Speech PLF/Current-Dysphagia Prior Level of Function The patient lived in [facility] prior to her hospital admission where she was independent with most of her daily needs. Subjective The patient was sitting in her chair when I arrived. Alerted to her name. Cognitive Status Responds to name Oral Motor Skills Dentition: Natural Current Food Consistancy: Pureed, Thin Liquids Ability to Follow Directions: Poor Oral Expression Ability: Unable Face Facial Symmetry: Symmetrical Oral-Facial Assessment Oral-Facial Dentition: Normal Labial Seal Description: Normal Lingual Protrusion: Abnormal Lingual ROM: Abnormal Lingual Strength: Abnormal Patient has frequent seizures which interfere with physical function Volitional Dry Swallow: Yes Dysphagia Evaluation Consistencies Presented: Thin Liquid, Pureed Oral Phase: Oral Residue, Unable to Form Bolus, Reduced Oral Transit Pharyngeal Phase: Decreased A/P Bolus Transit, Delayed Laryngeal Elevation, Delayed Swallow Patient exhibits decreased pharyngeal function for complete swallow Dietary Recommendations: Pureed Liquid Recommendations: Thin The patient's oral intake is decreased. She is noted to be pocketing and has decreased bolus management function. Alternate intake, PEG tube placement is recommended to insure the patient receives adequate nutrition and hydration. The patient has frequent seizures which place her at a very high risk for aspiration with oral intake. Swallowing Precautions: Alternate Liquids/Solids, Double Swallow, Decreased Bolus 1/4 Tsp, Liquids from Spoon, No Straw, Pocketing, Small Bites and Sips, Sitting Upright 90 Degrees, Sitting 90 Degrees 30 Post Intake Dysphagia Evaluation Summary The patient is a 67 year old female who was living in an assisted living. She has declined in overall function due to having frequent seizures. She was referred for a bedside swallow evaluation due to decreased oral intake and for assessment of least restrictive diet level. The patient is currently on puree with thin liquids. She eats approximately 50% of her meals with max assist. She is noted to be pocketing and having difficulty with bolus management. She is a very high risk for aspiration due to the frequent seizures and her current oral motor function for safe oral intake. The patient is recommended for a PEG tube placement for maintaining adequate nutrition/hydration. This information was relayed to her nurse Gillian and her daughter who was present in the room. Barriers to Learning Patient's medical status Speech Short Term Goals Short Term Goals Short Term Goals 1) The patient will tolerate least restrictive diet without s/s of aspiration at 80% or greater. 2) The patient will use alternate means of intake as determined by her medial team. Speech Central Office Mechanic Goals [facility] Goals The patient will maintain adequate nutrition/hydration via oral and alternate methods of intake. Speech-Plan Patient/Family Goals Patient/Family Goals: The patient will be moved to a halfway upon discharge from the hospital. Treatment Plan Speech Therapy Treatment Plan: Continue Plan of Care The patient will receive skilled ST for dysphagia. Treatment Duration: Oct 01, 2018 Frequency: 5 times per week Estimated Hrs Per Day: .25 hour per day Rehab Potential: Guarded Barriers to Learning: Patient's current medical status Pt/Family Agrees to Plan: Yes Safety Risks/Education Teaching Recipient: Family Teaching Methods: Discussion Response to Teaching: Verbalize Understanding Education Topics Provided: Safety of oral intake and possible PEG tube placement Time Speech Therapy Time In: 12:45 Speech Therapy Time Out: 13:00 Total Billed Time: 15 Billed Treatment Time 1NABEEL BETHANIA ST Sep 26, 2018 14:13
--- NOTE | 2018-09-26 14:15 | Occupational Therapy Eval ---
OT Evaluation-General/PLF Medical Diagnosis Admission Date Sep 26, 2018 at 11:34 Medical Diagnosis: UTI, seizures Onset Date: Sep 26, 2018 Therapy Diagnosis Therapy Diagnosis: impaired ADLs and mobility Height/Weight Height (Feet): 5 Height (Inches): 10.00 Weight (Pounds): 185 Weight (Ounces): 0.0 Precautions Precautions/Isolations: Standard Precautions Weight Bear Status Weight Bearing Restriction: Weight Bearing/Tolerated Referral Physician: Bill Referral Reason: Activity Tolerance, Self Care, Evaluation/Treatment, Strengthening/ROM Medical History Pertinent Medical History: COPD, Dementia, HTN Reviewed History: Yes Social History Home: Assisted Living ADL-Prior Level of Function Therapy Code Descriptions/Definitions Functional [place] Measure: 0=Not Assessed/NA 4=Minimal Assistance 1=Total Assistance 5=Supervision or Setup 2=Maximal Assistance 6=Modified [place] 3=Moderate Assistance 7=Complete [place] Therapy Quality Codes: 6 Independent with activity with or without an assistive device 5 Patient requires set up or clean up by helper. Patient completes activity by themselves 4 Supervision or touching assist (CGA). Rex provide cues , steadying assist 3 The helper provides less than half the effort to complete the activity 2 The helper provides more than half the effort to complete the activity 1 Dependent. The helper does all the effort to complete an activity 7 Patient refused to complete or attempt activity 9 The patient did not perform the activity before the current illness or injury 88 Not attempted due to Medical conditions or safety concerns Functional Abilities and Goals: Independent: Patient completed the activities by him/herself, with or without an assistive device, with no assistance from a helper. Needed Some Help: Patient needed partial assistance from another person to complete activities. Dependent: A helper completed the activities for the patient. Unknown: Not Applicable: Self Care: Dependent Functional Cognition: Dependent per daughter pt was dependent for grooming, dressing, and, bathing. daughter stated pt did initiate eating without utensils but by grabbing food with hands50 % of time. daughter would place food in pt hand and provide hand over hand assist the other 50% of time. pt daughter stated pt was ambulatory around house with CGA. pt would need constant (100%) cuing of direction. pt did not perform stairs PLOF. pt did not engage with TV, or games PLOF. daughter stated for the past 3 months pt would sit/ lay on bed and wait for someone to give commands. pt unable to work remote of TV or turn on/ off lights. pt daughter stated pt would follow daughter commands but not staff commands 1 month PLOF. pt stated pt has been consistently declining in function. per daughter PLOF pt would only stated 1-[address] Self: No OT Current Status Subjective pt sitting in recliner chair upon O T arrival in no apparent distress. pt made eye contact with therapist and stated "hi". Appearance post OT session pt sitting in recliner chair. daughter present in room. all needs met. Mental Status/Objective Patient Orientation: Mumbles Attachments: IV Current Glasses/Contacts: Yes (daughter resports pt has reading glasses but does not wear them) Hearing Aids: No Dentures/Partials: Yes Hand Dominance: Right Upper Extremity ROM noted decrease AROM with Left UE when pt attempted to wipe nose. ROM NT secondary top decrease engagement with therapy PROM WFL Upper Extremity Coordination NT secondary to decrease cognition. per daughter pt has decrease coordination PLOF. Upper Extremity Sensation NT secondary to cognition . Upper Extremity Strength NT secondary to cognition. ADL-Treatment Eating (FIM): 1 Eating (QC): 1 Grooming (FIM): 1 Oral Hygiene (QC): 1 Bathing (FIM): 1 Shower/Bathe Self (QC): 1 Upper Body Dressing (FIM): 1 Upper Body Dressing (QC): 88 Lower Body Dressing (FIM): 1 Lower Body Dressing (QC): 1 On/Off Footwear (QC): 1 Toileting (FIM): 1 Toileting Hygiene (QC): 88 Transfers (B, C, W/C) (FIM): 1 Toilet/Commode Transfer (FIM): 1 pt dependent with all ADLS. pt required 2 person assist for functional transfers. pt required MIN A - total assist to maintain static seated balance. Other Treatments Billed treatment: pt required hand over hand assist to perform eating this date with no initiation of task. (10 minutes) pt and daughter education on static sitting balance/ proper hand placement/ technique. pt daughter verbalized understanding and pt demo ability to maintain static sitting balance for approx 46 seconds. then demo left later lean. Education Teaching Recipient: Family Teaching Methods: Demonstration, Discussion Response to Teaching: Verbalize Understanding, Return Demonstration OT Short Term Goals Short Term Goals Eating(FIM): 2 Other pt will demo ability to maintain static sitting balance for 3 minutes i prep for eating while sitting 1=Demonstrate adherence to instructed precautions during ADL tasks. 2=Patient will verbalize/demonstrate understanding of assistive devices/ modifications for ADL. 3=Patient will improve strength/tolerance for activity to enable patient to perform ADL's. OT Statistician Theoretical Goals Statistician Theoretical Goals Eating (FIM): 4 (with 50% VC) Eating (QC): 3 pt will demo ability to maintain static sitting balance for 6 minutes i prep for eating while sitting 1=Demonstrate adherence to instructed precautions during ADL tasks. 2=Patient will verbalize/demonstrate understanding of assistive devices/ modifications for ADL. 3=Patient will improve strength/tolerance for activity to enable patient to perform ADL's. OT Education/Plan Problem List/Assessment Assessment: Decreased Activ Tolerance, Decreased Safety Aware, Decreased UE Strength, Dependent Transfers, Impaired Bed Mobility, Impaired Cognition, Impaired Coordination, Impaired Funct Balance, Impaired I ADL's, Impaired Self- Care Skills, Restricted Funct UE ROM pt presents to OT services with functional limitations affecting areas of ADLS and functional transfers. pt would benefit from OT Services to increase independence with static seated balance and eating. pt daughter agreed to OT goals that were set for pt. Discharge Recommendations Plan/Recommendations: Continue POC Therapy D/C Recommendations: 24 hr Supervision, Detention (TCU/NH) Treatment Plan/Plan of Care Treatment,Training & Education: Yes Patient would benefit from OT for education, treatment and training to promote independence in ADL's, mobility, safety and/or upper extremity function for ADL' s. Plan of Care: ADL Retraining, Caregiver Training, Cognitive Retraining, Functional Mobility, Group Exercise/Act as Ind, UE Funct Exercise/Act, UE Neuromus Re-Ed/Coord, Visual/Perceptual Retrain Treatment Duration: October 10, 2018 Frequency: 3 times per week Estimated Hrs Per Day: .5 hour per day Agreement: Yes Rehab Potential: Guarded Time/GCodes Start Time: 13:50 Stop Time: 14:30 Billed Treatment Time EVM 15 minutes ADL 10 minutes, 1 unit FA 15 minutes, 1 unit DIANA KOO OT Sep 26, 2018 14:15
[2018-09-26] MEDS: TRIHEXYPHENIDYL 5 MG PO SCH ×2 (14:47→20:14)
[2018-09-26] MEDS: CATHETER FLUSH 10 ML SYR IV SCH ×2 (16:14→20:20)
[2018-09-26] MEDS: NS IV 1000 ML 1,000 ML IV SCH (17:34)
[2018-09-26 18:47] VITALS: BP 142/68
[2018-09-26] MEDS: VALPROIC ACID SYRUP 250 MG/5 ML UDC PO SCH (20:14)
[2018-09-26] MEDS: APIXABAN 5 MG (ELIQUIS) TABLET PO SCH (20:14)
[2018-09-26] MEDS: LEVETIRACETAM 500 MG/ 5 ML UDC ORAL SOLN (KEPPRA) PO SCH (20:15)
[2018-09-27] MEDS: CATHETER FLUSH 10 ML SYR IV SCH ×3 (00:59→20:23)
[2018-09-27] MEDS: NS IV 1000 ML 1,000 ML IV SCH ×3 (00:59→21:05)
[2018-09-27 06:00] VITALS: BP 168/78
[2018-09-27] MEDS: FLUoxetine HCL 20 MG (PROzac) CAP PO SCH (08:35)
[2018-09-27] MEDS: APIXABAN 5 MG (ELIQUIS) TABLET PO SCH ×2 (08:35→20:17)
[2018-09-27] MEDS: TRIHEXYPHENIDYL 5 MG PO SCH ×3 (08:35→20:17)
[2018-09-27] MEDS: VALPROIC ACID SYRUP 250 MG/5 ML UDC PO SCH ×2 (08:36→20:17)
[2018-09-27] MEDS: LEVETIRACETAM 500 MG/ 5 ML UDC ORAL SOLN (KEPPRA) PO SCH ×2 (08:36→20:17)
--- NOTE | 2018-09-27 08:39 | Physical Therapy Daily Note ---
PT Daily Note-Current Subjective Pt non verbal. She did recognize intent of therapy but was not able to accurately respond to questioning. She did attempt to follow physical cues. Transfers Therapy Code Descriptions/Definitions Functional [place] Measure: 0=Not Assessed/NA 4=Minimal Assistance 1=Total Assistance 5=Supervision or Setup 2=Maximal Assistance 6=Modified [place] 3=Moderate Assistance 7=Complete [place] Therapy Quality Codes: 6 Independent with activity with or without an assistive device 5 Patient requires set up or clean up by helper. Patient completes activity by themselves 4 Supervision or touching assist (CGA). [place] provide cues , steadying assist 3 The helper provides less than half the effort to complete the activity 2 The helper provides more than half the effort to complete the activity 1 Dependent. The helper does all the effort to complete an activity 7 Patient refused to complete or attempt activity 9 The patient did not perform the activity before the current illness or injury 88 Not attempted due to Medical conditions or safety concerns Transfers (B, C, W/C) (FIM): 1 Scootin Rollin Supine to/from Sit: 1 Sat edge of bed with verbal and tactile cues. Required Max assist for all extremities and trunk. Sat EOB x 5 minutes. Worked on trunk control and LE knee extension and and ankle pumps. Returned to bed Max assist. Exercises Performed (B) LE AAROM for hips, knees, and ankles x 10-15 reps in supine PT Custodial Goals Custodial Goals PT Legal Administrative Secretary Goals Time Frame: Oct 03, 2018 Transfers (B,C,W/C) (FIM): 4 Gait (FIM): 4 PT Plan Treatment/Plan Treatment Plan: Continue Plan of Care Treatment Plan: Bed Mobility, Education, Functional Activity Flynn, Functional Strength, Therapeutic Exercise, Transfers Treatment Duration: Oct 03, 2018 Frequency: 6 times per week Estimated Hrs Per Day: .25 hour per day (to .5) Patient and/or Family Agrees t: Yes Time/GCodes Time In: 840 Time Out: 855 Total Billed Treatment Time: 15 Total Billed Treatment visit, FA 10 min, ex 5 min EBER SMITH PT Sep 27, 2018 08:39
[2018-09-27 18:00] VITALS: BP 142/65
[2018-09-28 06:12] VITALS: BP 156/73
[2018-09-28] MEDS: CATHETER FLUSH 10 ML SYR IV SCH ×4 (06:36→23:42)
[2018-09-28] MEDS: FLUoxetine HCL 20 MG (PROzac) CAP PO SCH (09:06)
[2018-09-28] MEDS: APIXABAN 5 MG (ELIQUIS) TABLET PO SCH ×2 (09:07→20:10)
[2018-09-28] MEDS: TRIHEXYPHENIDYL 5 MG PO SCH ×3 (09:07→20:10)
[2018-09-28] MEDS: VALPROIC ACID SYRUP 250 MG/5 ML UDC PO SCH ×2 (09:08→20:10)
[2018-09-28] MEDS: LEVETIRACETAM 500 MG/ 5 ML UDC ORAL SOLN (KEPPRA) PO SCH ×2 (09:10→20:10)
[2018-09-28] MEDS: PANTOPRAZOLE 2 MG/ML LIQUID 200 ML (PROTONIX) PO SCH ×6 (09:12→09:13)
[2018-09-28] MEDS: NS IV 1000 ML 1,000 ML IV SCH ×2 (10:24→23:42)
[2018-09-28 18:34] VITALS: BP 154/72
[2018-09-29 05:51] VITALS: BP 149/78
[2018-09-29] MEDS: PANTOPRAZOLE 2 MG/ML LIQUID 200 ML (PROTONIX) PO SCH ×3 (06:09)
[2018-09-29] MEDS: TRIHEXYPHENIDYL 5 MG PO SCH ×3 (08:14→21:30)
[2018-09-29] MEDS: FLUoxetine HCL 20 MG (PROzac) CAP PO SCH (08:14)
[2018-09-29] MEDS: APIXABAN 5 MG (ELIQUIS) TABLET PO SCH ×2 (08:14→21:30)
[2018-09-29] MEDS: LEVETIRACETAM 500 MG/ 5 ML UDC ORAL SOLN (KEPPRA) PO SCH ×2 (08:14→21:30)
[2018-09-29] MEDS: VALPROIC ACID SYRUP 250 MG/5 ML UDC PO SCH ×2 (08:36→21:31)
--- NOTE | 2018-09-29 09:24 | Physical Therapy Daily Note ---
PT Daily Note-Current Subjective Patient in bed pre tx, non-verbal, daughters in the room. Appearance Patient in bed post tx with nurse call, bed alarm on, daughters in the room. Mental Status Patient Orientation: Confused, Non-Verbal/Aphasic Attachments: IV Transfers Therapy Code Descriptions/Definitions Functional [place] Measure: 0=Not Assessed/NA 4=Minimal Assistance 1=Total Assistance 5=Supervision or Setup 2=Maximal Assistance 6=Modified [place] 3=Moderate Assistance 7=Complete [place] Therapy Quality Codes: 6 Independent with activity with or without an assistive device 5 Patient requires set up or clean up by helper. Patient completes activity by themselves 4 Supervision or touching assist (CGA). [place] provide cues , steadying assist 3 The helper provides less than half the effort to complete the activity 2 The helper provides more than half the effort to complete the activity 1 Dependent. The helper does all the effort to complete an activity 7 Patient refused to complete or attempt activity 9 The patient did not perform the activity before the current illness or injury 88 Not attempted due to Medical conditions or safety concerns Transfers (B, C, W/C) (FIM): 1 Scootin Rollin Supine to/from Sit: 1 Sit to/from Stand: 1 Rolling seems to scare patient. Attempted to stand several times but patient slides her feet forward and resists with retropulsion and arms. She was able to sit at the edge of the bed with min assist with therapist just holding onto her hands for support. Patient sat at the edge of the bed for about 10 min. Exercises Seated Therapy Exercises: Long arc quads Seated Reps: 15 Treatments bed mobility and transfers, standing, LE exercises Assessment Current Status: Poor Progress no change in mobility, patient resists transfers PT [facility] Goals Fixture Designer Goals PT [facility] Goals Time Frame: Oct 03, 2018 Transfers (B,C,W/C) (FIM): 4 Sit to Lying (QC): 4 Lying-Sitting on Side/Bed(QC): 4 Sit to Stand (QC): 4 Rollin Roll Left to Right (QC): 4 Chair/Xit-dd-Ridto Xfer(QC): 4 Car Transfer (QC): 4 Gait (FIM): 4 Walk 10 feet (QC): 4 Walk 10ft-Uneven Surface(QC): 4 Walk 50ft with 2 Turns (QC): 4 Walk 150 ft (QC): 4 PT Plan Problem List Problem List: Activity Tolerance, Functional Strength, Safety, Balance, Gait, Transfer, Bed Mobility, ROM Treatment/Plan Treatment Plan: Continue Plan of Care Treatment Plan: Bed Mobility, Education, Functional Activity Flynn, Functional Strength, Therapeutic Exercise, Transfers Treatment Duration: Oct 03, 2018 Frequency: 6 times per week Estimated Hrs Per Day: .25 hour per day (to .5) Patient and/or Family Agrees t: Yes Safety Risks/Education Patient Education: Transfer Techniques, Correct Positioning, Safety Issues Teaching Recipient: Patient Teaching Methods: Demonstration, Discussion Response to Teaching: Reinforcement Needed Time/GCodes Time In: 0855 Time Out: 15 Total Billed Treatment Time: 20 Total Billed Treatment 1 visit FA 20' JACKIE MORALES PT Sep 29, 2018 09:24
--- NOTE | 2018-09-29 11:56 | Occupational Ther Daily Note ---
OT Current Status-Daily Note Subjective pt lying in bed upon OT Arrival in no apparent distress. pt agreed to OT TX session with focus on increasing independence with eating and following commands. Appearance post OT session pt laying in bed. doctor of nursing practice present in room to finish assist pt with meals. NSG notified pt should be 1: 1 for eating secondary to decrease initiation of task. Mental Status/Objective Patient Orientation: Person Therapy Code Descriptions/Definitions Functional [place] Measure: 0=Not Assessed/NA 4=Minimal Assistance 1=Total Assistance 5=Supervision or Setup 2=Maximal Assistance 6=Modified [place] 3=Moderate Assistance 7=Complete [place] ADL-Treatment Therapy Code Descriptions/Definitions Functional [place] Measure: 0=Not Assessed/NA 4=Minimal Assistance 1=Total Assistance 5=Supervision or Setup 2=Maximal Assistance 6=Modified [place] 3=Moderate Assistance 7=Complete [place] Therapy Quality Codes: 6 Independent with activity with or without an assistive device 5 Patient requires set up or clean up by helper. Patient completes activity by themselves 4 Supervision or touching assist (CGA). [place] provide cues , steadying assist 3 The helper provides less than half the effort to complete the activity 2 The helper provides more than half the effort to complete the activity 1 Dependent. The helper does all the effort to complete an activity 7 Patient refused to complete or attempt activity 9 The patient did not perform the activity before the current illness or injury 88 Not attempted due to Medical conditions or safety concerns Eating (FIM): 1 Eating (QC): 1 pt required hand over hand assist to eat food and MOD VC to open month for next bite of food. pt did not initiate task. pt required cup to be place in hand, pt would initiate brining cup 25% way toward mouth then required hand over hand assist to continue task. increase timing noted to complete task. NSG notified pt would required 1:1 assist with all meals. Education OT Patient Education: Modified ADL techniques Teaching Recipient: Patient Teaching Methods: Demonstration, Discussion Response to Teaching: Reinforcement Needed OT Short Term Goals Short Term Goals Eating(FIM): 2 Other pt will demo ability to maintain static sitting balance for 3 minutes i prep for eating while sitting 1=Demonstrate adherence to instructed precautions during ADL tasks. 2=Patient will verbalize/demonstrate understanding of assistive devices/ modifications for ADL. 3=Patient will improve strength/tolerance for activity to enable patient to perform ADL's. OT Senior Living Goals Inspector Packer Goals Eating (FIM): 4 (with 50% VC) Eating (QC): 3 pt will demo ability to maintain static sitting balance for 6 minutes i prep for eating while sitting 1=Demonstrate adherence to instructed precautions during ADL tasks. 2=Patient will verbalize/demonstrate understanding of assistive devices/ modifications for ADL. 3=Patient will improve strength/tolerance for activity to enable patient to perform ADL's. OT Education/Plan Problem List/Assessment pt continues to presents to OT services with functional limitations affecting areas of ADLS and functional transfers. noted increase alertness this date with pt. pt able to state her name and remain awake during tx session. pt made eye contact with therapist throughout OT TX Session. pt would benefit from OT Services to increase independence with static seated balance and eating. pt daughter agreed to OT goals that were set for pt. Discharge Recommendations Plan/Recommendations: Continue POC Therapy D/C Recommendations: 24 hr Supervision, Assisted (TCU/NH) Treatment Plan/Plan of Care Patient would benefit from OT for education, treatment and training to promote independence in ADL's, mobility, safety and/or upper extremity function for ADL' s. Plan of Care: ADL Retraining, Caregiver Training, Cognitive Retraining, Functional Mobility, Group Exercise/Act as Ind, UE Funct Exercise/Act, UE Neuromus Re-Ed/Coord, Visual/Perceptual Retrain Treatment Duration: October 10, 2018 Frequency: 3 times per week Estimated Hrs Per Day: .5 hour per day Agreement: Yes Rehab Potential: Guarded Time/GCodes Start Time: 11:33 Stop Time: 11:56 Billed Treatment Time ADL 23 minutes, 2 units DIANA KOO OT Sep 29, 2018 11:56
[2018-09-29] MEDS: NS IV 1000 ML 1,000 ML IV SCH (13:05)
[2018-09-29] MEDS: CATHETER FLUSH 10 ML SYR IV SCH ×2 (14:20→21:31)
--- NOTE | 2018-09-29 15:20 | NUR ---
Initial visit. Pt's eyes appeared dilated. She made eye contact and responded appropriately in conversation. She smiled and said she was 'feeling better.'
--- NOTE | 2018-09-29 15:28 | Speech Therapy Daily Note ---
Speech Daily Progress Note Subjective Date Seen by Provider: Sep 29, 2018 Time Seen by Provider: 15:00 The patient was resting in her chair. Patient is non verbal, continues to require vc's with every bite. Oral intake continues to be decreased. Objective Patient completed a few sips of liquids with vc for each sip to "open mouth and suck on the straw" without s/s of aspiration noted. Assessment Assessment Current Status: Poor Progress Treatment Plan Continue Plan of Care Speech Short Term Goals Short Term Goals Short Term Goals 1) The patient will tolerate least restrictive diet without s/s of aspiration at 80% or greater. 2) The patient will use alternate means of intake as determined by her medial team. Speech Batter Mixer Goals Batter Mixer Goals The patient will maintain adequate nutrition/hydration via oral and alternate methods of intake. Speech-Plan Patient/Family Goals Patient/Family Goals: The patient will discharge from the hospital to a local SNF. Treatment Plan Speech Therapy Treatment Plan: Continue Plan of Care Patient is not progressing. Continue recommendation for PEG. Treatment Duration: Oct 01, 2018 Frequency: 5 times per week Estimated Hrs Per Day: .25 hour per day Rehab Potential: Guarded Barriers to Learning: Nonverbal, significant decreased level of function Pt/Family Agrees to Plan: Yes Safety Risks/Education Teaching Recipient: Patient Teaching Methods: Discussion Response to Teaching: Reinforcement Needed Education Topics Provided: Nutritional needs Time Speech Therapy Time In: 15:00 Speech Therapy Time Out: 15:15 Total Billed Time: 15 Billed Treatment Time 1, LUCILLE Sherwood Sep 29, 2018 15:28
[2018-09-29 18:06] VITALS: BP 154/87
--- NOTE | 2018-09-29 20:28 | Progress Note (SOAP) ---
Subjective Date Seen by a Provider: Sep 29, 2018 Time Seen by a Provider: 20:25 Subjective/Events-last exam Fwup uncontrolled seizures, UTI, falls, debility, worsening dementia, mood disorder, constipation, urinary retention. Daughter at bedside feeding patient. Patient much more awake and alert today. Objective Exam Vital Signs Date Time Temp Pulse Resp B/P (MAP) Pulse Ox O2 Delivery O2 Flow Rate FiO2 09/29/18 18:06 99.0 86 20 154/87 (109) 95 Room Air 09/29/18 09:00 91 Room Air 09/29/18 05:51 98.3 71 18 149/78 (101) 92 Room Air 09/28/18 21:00 Room Air I & O 09/29/18 07:00 Intake Total 1800 ml Output Total 1400 ml Balance 400 ml Capillary Refill : Less Than 3 Seconds General Appearance: No Apparent Distress Neck: Supple Respiratory: Lungs Clear Cardiovascular: Regular Rate, Rhythm Gastrointestinal: normal bowel sounds, non tender, soft Extremity: Non Tender, No Calf Tenderness, No Pedal Edema Neurologic/Psychiatric: Alert Skin: Warm/Dry Assessment/Plan Assessment/Plan Assess & Plan/Chief Complaint 1. Uncontrolled Seizures--stable with current Keppra/Depakote dosing 2. UTI--resolved 3. Urinary Retention--resolved 4. Constipation--resolved 5. Dementia with Behavior Disorder and Worsening Debility--more awake today 6. Mood Disorder--Have DCed seroquel due to depakote being a mood stabilizer and doing okay 7. DC tomorrow to [facility] Clinical Quality Measures DVT/VTE Risk/Contraindication: Risk Factor Score Per Nursin MARIANELA GOMEZ DO Sep 29, 2018 20:28
[2018-09-29] MEDS ORDERED: SENN-40 PO (20:32)
[2018-09-29] MEDS ORDERED: VALP250S3 PO (20:32)
[2018-09-29] MEDS ORDERED: LEVE100S PO (20:32)
--- NOTE | 2018-09-29 20:35 | Discharge Inst-Skilled Nursing ---
Discharge Inst-Skilled NF Patient Instructions Patient Problems: Seizures Dementia with Behavior Disorder Mood Disorder Falls/Gait Instabity/Weakness Consult/Follow Up/Orders Follow Up Appt.: Fwup with me in 1 week Skilled NF Admit to: [place] ([facility]) I certify that SNF services are required to be given on an inpatient basis because of the above named patient's need for care home care on a continuing basis for the conditions(s) for which he/she was receiving inpatient hospital services prior to his/her transfer to the SNF. Long Term Facility Order: Nursing Services, Awake Overnight Counselor-Evaluate & Treat, Physical Therapy-Evaluate & Treat, Speech Language-Evaluate & Treat Oxygen Delivery Method: Room Air Discharge Diet: Soft Diet Daily Activity as Tolerated: No New & Resume Previous Orders New & Resume Previous Orders Blood Pressure Check and Weight check weekly Check CBC, CMP, Depakote and Keppra Level in 1 week Abigail Khan Sep 29, 2018 20:32 ABIGAIL KHAN DO Sep 29, 2018 20:35
[2018-09-30 05:09] VITALS: BP 149/73
[2018-09-30] MEDS: PANTOPRAZOLE 2 MG/ML LIQUID 200 ML (PROTONIX) PO SCH ×3 (06:16)
[2018-09-30] MEDS: CATHETER FLUSH 10 ML SYR IV SCH (06:16)
[2018-09-30] MEDS: NS IV 1000 ML 1,000 ML IV SCH (09:08)
[2018-09-30] MEDS: TRIHEXYPHENIDYL 5 MG PO SCH (09:27)
[2018-09-30] MEDS: APIXABAN 5 MG (ELIQUIS) TABLET PO SCH (09:27)
[2018-09-30] MEDS: FLUoxetine HCL 20 MG (PROzac) CAP PO SCH (09:27)
[2018-09-30] MEDS: VALPROIC ACID SYRUP 250 MG/5 ML UDC PO SCH (09:28)
[2018-09-30] MEDS: LEVETIRACETAM 500 MG/ 5 ML UDC ORAL SOLN (KEPPRA) PO SCH (09:28)
--- NOTE | 2018-09-30 09:45 | NUR ---
CM/SS. Patient discharged to new Medicare skilled placement with [facility] via their transportation scheduled for 1100. Updated daughter Kira who will come assist getting her mother dressed and remain as a support for her regarding transition. Spoke with MLP Gillian about arrangements. Faxed orders to MLP, [facility] was completed/faxed last week. Unit RN updated, packet prepared to accompany patient.
--- NOTE | 2018-09-30 10:58 | Occupational Ther Daily Note ---
OT Current Status-Daily Note Subjective pt laying in bed upon O T Arrival. pt agreed to OT TX Session with focus on increasing static sitting balance for ADLs. pt oriented to self and made eye contact with therapist throughout session. Appearance Patient in bed post tx, bed alarm on, all needs met. Mental Status/Objective Therapy Code Descriptions/Definitions Functional [place] Measure: 0=Not Assessed/NA 4=Minimal Assistance 1=Total Assistance 5=Supervision or Setup 2=Maximal Assistance 6=Modified [place] 3=Moderate Assistance 7=Complete [place] ADL-Treatment Therapy Code Descriptions/Definitions Functional [place] Measure: 0=Not Assessed/NA 4=Minimal Assistance 1=Total Assistance 5=Supervision or Setup 2=Maximal Assistance 6=Modified [place] 3=Moderate Assistance 7=Complete [place] Therapy Quality Codes: 6 Independent with activity with or without an assistive device 5 Patient requires set up or clean up by helper. Patient completes activity by themselves 4 Supervision or touching assist (CGA). [place] provide cues , steadying assist 3 The helper provides less than half the effort to complete the activity 2 The helper provides more than half the effort to complete the activity 1 Dependent. The helper does all the effort to complete an activity 7 Patient refused to complete or attempt activity 9 The patient did not perform the activity before the current illness or injury 88 Not attempted due to Medical conditions or safety concerns Other Treatment pt education on proper methods when performing supine to sit in prep for sitting EOB while eating. pt spontaneously engaged with task. pt moved [place] LE toward EOB but then moving them back into bed. pt required TA to performing bed mobility to demo ability to maintain static sitting balance with MOD- MAX A for approx 2 minutes. pt inconsistently followed 1 step commands while sitting EOB. pt required total assist to performed sit to supine. Education OT Patient Education: Correct positioning, Energy conservation, Modified ADL techniques, Progress toward Goal/Update tx plan, Purpose of tx/functional activities, Safety issues, Transfer techniques Teaching Recipient: Patient Teaching Methods: Demonstration, Discussion Response to Teaching: Reinforcement Needed OT Short Term Goals Short Term Goals Eating(FIM): 2 Other pt will demo ability to maintain static sitting balance for 3 minutes i prep for eating while sitting 1=Demonstrate adherence to instructed precautions during ADL tasks. 2=Patient will verbalize/demonstrate understanding of assistive devices/ modifications for ADL. 3=Patient will improve strength/tolerance for activity to enable patient to perform ADL's. OT Textile Conversion Manager Goals Textile Conversion Manager Goals Eating (FIM): 4 (with 50% VC) Eating (QC): 3 pt will demo ability to maintain static sitting balance for 6 minutes i prep for eating while sitting 1=Demonstrate adherence to instructed precautions during ADL tasks. 2=Patient will verbalize/demonstrate understanding of assistive devices/ modifications for ADL. 3=Patient will improve strength/tolerance for activity to enable patient to perform ADL's. OT Education/Plan Problem List/Assessment pt continues to presents to OT services with functional limitations affecting areas of ADLS and functional transfers. pt would benefit from OT Services to increase independence with static seated balance and eating. pt daughter agreed to OT goals that were set for pt. Discharge Recommendations Plan/Recommendations: Continue POC Therapy D/C Recommendations: 24 hr Supervision, Senior Care (TCU/NH) Treatment Plan/Plan of Care Treatment,Training & Education: Yes Patient would benefit from OT for education, treatment and training to promote independence in ADL's, mobility, safety and/or upper extremity function for ADL' s. Plan of Care: ADL Retraining, Caregiver Training, Cognitive Retraining, Functional Mobility, Group Exercise/Act as Ind, UE Funct Exercise/Act, UE Neuromus Re-Ed/Coord, Visual/Perceptual Retrain Treatment Duration: October 10, 2018 Frequency: 3 times per week Estimated Hrs Per Day: .5 hour per day Agreement: Yes Rehab Potential: Guarded Time/GCodes Start Time: 10:13 Stop Time: 10:25 Billed Treatment Time FA 12 minutes, 1 unit DIANA KOO OT Sep 30, 2018 10:58
[2018-09-30 11:30] VITALS: BP 149/73
--- NOTE | 2018-09-30 17:57 | Discharge Summary ---
Diagnosis/Chief Complaint Date of Admission Sep 26, 2018 at 11:34 Date of Discharge Sep 30, 2018 at 11:20 Discharge Diagnosis 1. Uncontrolled Seizures--stable with current Keppra/Depakote dosing 2. UTI--resolved 3. Urinary Retention--resolved 4. Constipation--resolved 5. Dementia with Behavior Disorder and Worsening Debility--more awake last 2 days 6. Mood Disorder--Have DCed seroquel due to depakote being a mood stabilizer and doing ok Discharge Summary Hospital Course Hospital Course This is a 67 year old female originally admitted to acute care with uncontrolled seizures as well as a UTI. She was initially admitted to acute care but do to the ongoing need to adjust medications and monitor the patient's response, she was transferred to SWING bed. She was stabilized on a higher dose of keppra and lower dose of depakote prior to discharge with no seizure activity noted and less grogginess from the medications. She had completed her full therapy course of antibiotics for her urinary tract infection and her constipation was resolved which also resolved her urinary retention. She will be discharged to [facility] with PT/OT and ST and fwup in my office in 1 week. Procedures None. Discharge Physical Examination Allergies: Coded Allergies: morphine (Verified Allergy, Intermediate, 08/01/17) butorphanol (Verified Allergy, Unknown, 08/01/17) Vitals & I&Os Vital Signs Date Time Temp Pulse Resp B/P (MAP) Pulse Ox O2 Delivery O2 Flow Rate FiO2 09/30/18 11:30 79 22 149/73 91 Room Air 2.00 09/30/18 05:09 98.2 General Appearance: Alert, No Acute Distress Respiratory: Clear to Auscultation Cardiovascular: Regular Rate Abdominal: Normal Bowel Sounds, Soft, No Tenderness Extremities: No Clubbing, No Cyanosis, No Edema Psych/Mental Status: Other (more alert but slow answers to questions) Discharge Home Medications Reviewed and agree with Discharge Medication list on patient's Discharge Instruction sheet Instructions to Patient/Family Please see electronic discharge instructions given to patient. Clinical Quality Measures DVT/VTE Risk/Contraindication: Risk Factor Score Per Nursin MARIANELA GOMEZ DO Sep 30, 2018 17:57
--- NOTE | 2018-10-01 13:11 | Therapy Team Discharge Summary ---
Therapy Discharge Summary Discharge Recommendations Date of Discharge Sep 30, 2018 at 11:20 Therapy D/C Recommendations: 24 hr Supervision, Assisted (TCU/NH) Physical Therapy Patient went to a swing bed status with UTI and seizures. Upon evaluation patient was dependent for bed mobility and transfers. Patient has been performing bed mobility and transfer training, sitting, LE exercises, standing. Patient has made poor progress and has not met any of her physical therapy goals. Now, patient is still dependent for bed mobility and transfers. Patient was discharged from this facility yesterday and will be discharged from PT at this time. Occupational Therapy Decreased Activ Tolerance, Decreased Safety Aware, Decreased UE Strength, Dependent Transfers, Impaired Bed Mobility, Impaired Cognition, Impaired Coordination, Impaired Funct Balance, Impaired I ADL's, Impaired Self-Care Skills, Restricted Funct UE ROM PT Art Psychotherapist Or Therapist Goals [place] Goals PT Art Psychotherapist Or Therapist Goals Time Frame: Oct 03, 2018 Transfers (B,C,W/C) (FIM): 4 Sit to Lying (QC): 4 Lying-Sitting on Side/Bed(QC): 4 Sit to Stand (QC): 4 Rollin Chair/Uia-kk-Wjysz Xfer(QC): 4 Gait (FIM): 4 Walk 50ft with 2 Turns (QC): 4 Walk 150 ft (QC): 4 OT Prison Goals Art Psychotherapist Or Therapist Goals Eating (FIM): 4 (with 50% VC) Eating (QC): 3 pt will demo ability to maintain static sitting balance for 6 minutes i prep for eating while sitting 1=Demonstrate adherence to instructed precautions during ADL tasks. 2=Patient will verbalize/demonstrate understanding of assistive devices/ modifications for ADL. 3=Patient will improve strength/tolerance for activity to enable patient to perform ADL's. Speech Art Psychotherapist Or Therapist Goals Prison Goals The patient will maintain adequate nutrition/hydration via oral and alternate methods of intake. JACKIE MORALES PT Oct 01, 2018 13:11
--- NOTE | 2018-10-01 15:56 | Therapy Team Discharge Summary ---
Therapy Discharge Summary Discharge Recommendations Date of Discharge Sep 30, 2018 at 11:20 Therapy D/C Recommendations: 24 hr Supervision, Longterm (TCU/NH) Occupational Therapy Pt was seen for OT services to increase independence with eating and static sitting balance for ADLS. Patient has made poor progress during OT and has not met any OT goals secondary to alertness and cognition. pt required total assist for eating, and Max -Total assist to maintain static sitting balance. Decreased Activ Tolerance, Decreased Safety Aware, Decreased UE Strength, Dependent Transfers, Impaired Bed Mobility, Impaired Cognition, Impaired Coordination, Impaired Funct Balance, Impaired I ADL's, Impaired Self-Care Skills, Restricted Funct UE ROM PT Skilled Nursing Goals Mat Cutter Goals PT Skilled Nursing Goals Time Frame: Oct 03, 2018 Transfers (B,C,W/C) (FIM): 4 Sit to Lying (QC): 4 Lying-Sitting on Side/Bed(QC): 4 Sit to Stand (QC): 4 Rollin Chair/Dwj-yj-Cffik Xfer(QC): 4 Gait (FIM): 4 Walk 50ft with 2 Turns (QC): 4 Walk 150 ft (QC): 4 OT Mat Cutter Goals Mat Cutter Goals Eating (FIM): 4 (NOT MET) Eating (QC): 3 (NOT MET) pt will demo ability to maintain static sitting balance for 6 minutes i prep for eating while sitting (NOT MET) 1=Demonstrate adherence to instructed precautions during ADL tasks. 2=Patient will verbalize/demonstrate understanding of assistive devices/ modifications for ADL. 3=Patient will improve strength/tolerance for activity to enable patient to perform ADL's. Speech Mat Cutter Goals Mat Cutter Goals The patient will maintain adequate nutrition/hydration via oral and alternate methods of intake. DIANA KOO OT Oct 01, 2018 15:56
== END 2018-09-30 11:20 | DRG 101 ==
LOC: 4TH 11:34
PROVIDERS: ADMIT Family Medicine; ATTEND Family Medicine
DX: R56.9 Unspecified convulsions (principal); F03.91 Unspecified dementia, unspecified severity, with behavioral disturbance; F39 Unspecified mood [affective] disorder; R33.9 Retention of urine, unspecified; K59.00 Constipation, unspecified; R29.6 Repeated falls; R53.81 Other malaise